=== PATIENT | male | born 1965 ===

== ENCOUNTER 2018-03-08 12:33 | Inpatient (IN) | payer MEDICAID ==
[2018-03-08 12:34] VITALS: BMI 21.5
--- NOTE | 2018-03-08 13:48 | C.PDOC ---
History Of Present Illness 52 y/o male with history of DM and Cellulitis in 2017 presents to ED for evaluation of worsening left facial infection and onset difficulty to left vision for 1 months. Patient reports paresthesia to periorbital area and has current facial defect due to consequences of celullitis. Patient states he is pending evaluation for reconstructive surgery at [facility] but states surgical clinic at hospital states he needed an evaluation by dermatology prior to having surgery. Patient reports appointment with dermatology but they keep canceling and giving him "the run around". Patient has history of MRSA secondary to leg cellulitis. Patient states [facility] sent him to ED for evaluation today and denies fever, difficulty breathing or any other physical complaints at this time. Time Seen by Provider: 03/08/18 12:38 Chief Complaint (Nursing): Abnormal Skin Integrity History Per: Workers' Compensation Claims Examiner, Other (Records of [place], [place]) History/Exam Limitations: language barrier Onset/Duration Of Symptoms: Days Current Symptoms Are (Timing): Still Present Past Medical History Reviewed: Historical Data, Nursing Documentation, Vital Signs Vital Signs: Last Vital Signs Temp 98.6 F 03/08/18 12:45 Pulse 86 03/08/18 16:07 Resp 18 03/08/18 16:07 BP 182/81 H 03/08/18 16:07 Pulse Ox 100 03/08/18 16:07 - Medical History PMH: Anemia, Depression, Diabetes, HTN Surgical History: No Surg Hx - [facility] Procedures DETACHMENT AT RIGHT KNEE REGION, OPEN APPROACH (07/27/15) DRAINAGE OF R FOOT SUBCU/FASCIA, OPEN APPROACH, DIAGN (07/27/15) EXCISION OF R LOW LEG SUBCU/FASCIA, OPEN APPROACH (06/12/15) EXCISION OF RIGHT TARSAL, OPEN APPROACH (07/27/15) GAIT TRAINING/FUNCTIONAL AMBULATION TREATMENT (07/16/15) INSERTION OF INFUSION DEV INTO SUP VENA CAVA, PERC APPROACH (06/12/15) INTRODUCTION OF SERUM/TOX/VACCINE INTO MUSCLE, PERC APPROACH (07/16/15) ROM & JT MOBILITY TREATMENT OF MUSCULOSK LOW BACK/LE (07/16/15) THERAPEUTIC EXERCISE TREATMENT OF MUSCULOSK LOW BACK/LE (08/27/15) TRANSFUSE NONAUT RED BLOOD CELLS IN PERIPH VEIN, PERC (07/27/15) Family History: States: No Known Family Hx - Social History Hx Alcohol Use: No Hx Substance Use: No - Immunization History Hx Tetanus Toxoid Vaccination: No Hx Influenza Vaccination: No Hx Pneumococcal Vaccination: No Review Of Systems Constitutional: Negative for: Fever, Chills Eyes: Positive for: Vision Change Respiratory: Negative for: Shortness of Breath Skin: Positive for: Other (crusting and erythema). Negative for: Rash Physical Exam - Physical Exam Appears: Non-toxic, No Acute Distress Skin: Warm, Dry, Other (generalized crusting and erythema to face extending to nose L>R, Findings consistent with Impetigos/Cellulitis extending to left perio- oral area) Head: Other (Chronic mid left facial deformity ) Eye(s): bilateral: PERRL, EOMI Nose: Deformity (missing left nose with visualizations of nasal turbinates) Oral Mucosa: Moist, No Drooling Lips: Other (lower lip missing) Neck: Normal ROM, Supple Cardiovascular: Rhythm Regular Respiratory: Normal Breath Sounds, No Rales, No Rhonchi, No Wheezing Extremity: Deformity (bilateral BKA) Neurological/Psych: Oriented x3, Normal Speech, Normal Cognition ED Course And Treatment - Laboratory Results Result Diagrams: 03/08/18 14:02 03/08/18 14:02 ECG: Interpreted By Me ECG Rhythm: Sinus Rhythm ECG Interpretation: Normal Rate From EC O2 Sat by Pulse Oximetry: 98 (RA) Pulse Ox Interpretation: Normal Disposition Counseled Patient/Family Regarding: Studies Performed, Diagnosis - Disposition Disposition: HOSPITALIZED Disposition Time: 16:22 Condition: STABLE Forms: [facility] (Bruneian) - POA Present On Arrival: Poor Glycemic Control - Clinical Impression Clinical Impression: Cellulitis - Scribe Statement The provider has reviewed the documentation as recorded by the Elizabeth Starr All medical record entries made by the Patrickibmihir were at my direction and personally dictated by me. I have reviewed the chart and agree that the record accurately reflects my personal performance of the history, physical exam, medical decision making, and the department course for this patient. I have also personally directed, reviewed, and agree with the discharge instructions and disposition. Decision To Admit - Pt Status Changed To: Hospital Disposition Of: Inpatient - Admit Certification Admit to Inpatient:: After my assessment, the patient will require hospitalization for at least two midnights. This is because of the severity of symptoms shown, intensity of services needed, and/or the medical risk in this patient being treated as an outpatient. - InPatient: Physician Admission Certification: I certify that this patient requires 2 or more midnights of care for the following reason:: SEE NOTE - . Bed Request Type: Regular Admitting Physician: Nato Escobedo Patient Diagnosis: Cellulitis, Diabetes mellitus, insulin dependent (IDDM), uncontrolled
[2018-03-08 14:08] LABS: BASO # 0.1 K/uL (0.0-0.2); BASO % 0.7 % (0.0-2.0); EOS # 0.3 K/uL (0.0-0.7); HEMOGLOBIN 11.3 g/dL (12.0-18.0); LYMPH # 1.9 K/uL (1.0-4.3); LYMPH % 18.9 % (20.0-40.0); MEAN CELL VOLUME 87.7 fL (80.0-94.0); MEAN CORPUSCULAR HEMOGLOBIN 29.9 pg (27.0-31.0); MEAN CORPUSCULAR HGB CONC 34.1 g/dL (33.0-37.0); MEAN PLATELET VOLUME 9.3 fL (7.2-11.7); MONO # 0.7 K/uL (0.0-0.8); MONO % 6.6 % (0.0-10.0); NEUT # 7.1 K/uL (1.8-7.0); NEUT % 70.8 % (50.0-75.0); RBC 3.77 Mil/uL (4.40-5.90); RED CELL DISTRIBUTION WIDTH 13.8 % (11.5-14.5)
[2018-03-08 14:08] LABS: VENOUS BLOOD GAS BASE EXCESS -6.2 mmol/L (0.0-2.0); VENOUS BLOOD GAS PCO2 60 mmHg (40-60); VENOUS BLOOD GAS PO2 63 mm/Hg (30-55); VENOUS BLOOD PH 7.19 (7.32-7.43)
[2018-03-08 14:22] LABS: BLOOD UREA NITROGEN 15 mg/dL (9-20); CALCIUM 9.2 mg/dl (8.6-10.4); GFR AFRICAN-AMERICAN > 60; GFR NON-AFRICAN AMERICAN > 60
[2018-03-08] MEDS ORDERED: Iodixanol 320 MG/ML 100 ML BOTTLE IV ONE (15:10)
--- NOTE | 2018-03-08 15:57 | CT ---
PROCEDURE: CT HEAD WITHOUT CONTRAST. HISTORY: L FACIAL ABN RO MASS COMPARISON: None available. TECHNIQUE: Axial computed tomography images were obtained through the head/brain without intravenous contrast. Radiation dose: Total exam DLP = 2350.79 mGy-cm. This CT exam was performed using one or more of the following dose reduction techniques: Automated exposure control, adjustment of the mA and/or kV according to patient size, and/or use of iterative reconstruction technique. FINDINGS: HEMORRHAGE: No intracranial hemorrhage. BRAIN: There are mild chronic microangiopathic changes. There is no mass, mass effect or abnormal extra-axial fluid collection. There is no territorial infarction. VENTRICLES: There is mild age-related global parenchymal volume loss and proportionate enlargement of the ventricles and cortical sulci. CALVARIUM: There is a focal defect in the right frontal bone without evidence for encephalocele. There is mild thickening of the overlying skin. PARANASAL SINUSES: Predominantly clear. MASTOID AIR CELLS: Predominantly clear. OTHER FINDINGS: None. IMPRESSION: No acute intracranial abnormality. Focal bony defect in the right frontal bone with associated thickening of the overlying skin without evidence for encephalocele. A dedicated MRI of the brain without and with intravenous contrast is recommended for further evaluation.
--- NOTE | 2018-03-08 16:06 | CT ---
PROCEDURE: CT ORBITS WITH CONTRAST. HISTORY: CELLULITIS, L FACIAL DEFECT RO ABSCESS COMPARISON: None available. TECHNIQUE: Following administration of intravenous iodinated contrast, axial CT images of the orbits were obtained. Coronal and sagittal reformats were generated. Intravenous contrast dose: 100 mL Visipaque Radiation dose: Total exam DLP = 821.77 mGy-cm. This CT exam was performed using one or more of the following dose reduction techniques: Automated exposure control, adjustment of the mA and/or kV according to patient size, and/or use of iterative reconstruction technique. FINDINGS: RIGHT ORBIT: RIGHT BONY ORBIT: Normal. RIGHT INTRAORBITAL STRUCTURES: Globe: Normal. Extraocular muscles: Normal. Post septal space: Normal. Optic Nerve: Normal. Lacrimal Apparatus: Normal. RIGHT PRESEPTAL SOFT TISSUES: Normal. LEFT ORBIT: LEFT BONY ORBIT: Normal. LEFT INTRAORBITAL STRUCTURES: Globe: Normal. Extraocular muscles: Normal. Post septal space: Normal. Optic Nerve: Normal. Lacrimal Apparatus: Normal. LEFT PRESEPTAL SOFT TISSUES: There is mild preseptal soft tissue thickening. OTHER: There is left lateral nasal soft tissue defect and right inferior nasal soft tissue defect with soft tissue thickening anterior to the superior maxilla without evidence for abscess or drainable fluid collection. There is left pre maxillary soft tissue thickening. There is also diffuse soft tissue thickening of the left face and subcutaneous soft tissue anterior to the left mandible. IMPRESSION: Normal contrast enhanced CT of the orbits. Bilateral nasal soft tissue defects, larger on the left and abnormal soft-tissue thickening anterior superior to the maxilla without evidence for abscess or drainable fluid collection. Diffuse left facial skin thickening with abnormal soft-tissue anterior to the mandible and maxilla predominantly to the left as well as left preseptal soft tissue thickening most compatible with cellulitis. No evidence for abscess or drainable fluid collection. No definite evidence for osteomyelitis.
[2018-03-08] MEDS ORDERED: Vancomycin 1 gm/NS 200 ml 1 GM/200 ML BAG IVPB STA (16:24)
--- NOTE | 2018-03-08 16:39 | RAD ---
PROCEDURE: CHEST RADIOGRAPH, 1 VIEW HISTORY: PREADMISSION COMPARISON: None available. FINDINGS: LUNGS: Clear. PLEURA: No pneumothorax or pleural fluid seen. CARDIOVASCULAR: Normal. OSSEOUS STRUCTURES: No significant abnormalities. VISUALIZED UPPER ABDOMEN: Normal. OTHER FINDINGS: None. IMPRESSION: No active disease.
--- NOTE | 2018-03-08 17:39 | CP.PCM.HP ---
History of Present Illness - History of Present Illness History of Present Illness: Patient is a 52M with a PMH of DM, HTN and L. face cellulitis s/p debridment who comes to the ED with a CC of worsening Past Patient History - Past Medical History & Family History Past Medical History?: Yes - Past Social History Smoking Status: Former Smoker - CARDIAC Hx Hypertension: Yes - PULMONARY Hx Respiratory Disorders: No - NEUROLOGICAL Hx Neurological Disorder: No - HEENT Hx HEENT Problems: No - RENAL Hx Chronic Kidney Disease: No - ENDOCRINE/METABOLIC Hx Endocrine Disorders: Yes Hx Diabetes Mellitus Type 1: Yes Hx Diabetes Mellitus Type 2: Yes - HEMATOLOGICAL/ONCOLOGICAL Hx Anemia: Yes - INTEGUMENTARY Hx Dermatological Problems: Yes Hx Cellulitis: Yes Other/Comment: Ulcer right foot - MUSCULOSKELETAL/RHEUMATOLOGICAL Hx Musculoskeletal Disorders: Yes (SEE COMMENT) Hx Falls: No Hx Osteomyelitis: Yes Other/Comment: BILATERAL BK-AMPUTATIONS - GASTROINTESTINAL Hx Gastrointestinal Disorders: No - GENITOURINARY/GYNECOLOGICAL Hx Genitourinary Disorders: No - PSYCHIATRIC Hx Depression: Yes Hx Substance Use: No - SURGICAL HISTORY Hx Surgeries: Yes Hx Amputation: Yes (Bilateral BKA) - ANESTHESIA Hx Anesthesia: Yes Hx Anesthesia Reactions: No Hx Malignant Hyperthermia: No Meds Allergies/Adverse Reactions: Allergies Allergy/AdvReac Type Severity Reaction Status Date / Time No Known Allergies Allergy Verified 03/08/18 12:42 Results - Vital Signs Recent Vital Signs: Last Vital Signs Temp 98.6 F 03/08/18 12:45 Pulse 89 03/08/18 17:05 Resp 18 03/08/18 17:05 BP 150/71 03/08/18 17:05 Pulse Ox 100 03/08/18 17:05 - Labs Result Diagrams: 03/08/18 14:02 03/08/18 14:02 Labs: Laboratory Results - last 24 hr 03/08/18 03/08/18 03/08/18 14:02 14:02 14:03 WBC 10.0 RBC 3.77 L Hgb 11.3 L Hct 33.1 L MCV 87.7 MCH 29.9 MCHC 34.1 RDW 13.8 Plt Count 288 MPV 9.3 Neut % (Auto) 70.8 Lymph % (Auto) 18.9 L [place] % (Auto) 6.6 Eos % (Auto) 3.0 Baso % (Auto) 0.7 Neut # (Auto) 7.1 H Lymph # (Auto) 1.9 [place] # (Auto) 0.7 Eos # (Auto) 0.3 Baso # (Auto) 0.1 pO2 63 H VBG pH 7.19 L* VBG pCO2 60 VBG HCO3 19.8 VBG Total CO2 24.7 VBG O2 Sat (Calc) 90.2 H VBG Base Excess -6.2 L VBG Potassium > 20.0 H* Glucose 191 H Lactate 1.6 Crit Value Called To Dr joyce Crit Value Called By Karyn martinez javascript engineer Crit Value Read Back Y Blood Gas Notified Time 1410 Sodium 142 129.0 L Potassium 4.2 Chloride 106 105.0 Carbon Dioxide 25 Anion Gap 15 BUN 15 Creatinine 0.7 L Est GFR ( Amer) > 60 Est GFR (Non-Af Amer) > 60 Random Glucose 191 H Calcium 9.2 Venous Blood Potassium > 20.0 H*
[2018-03-08 18:22] VITALS: RESP 20
--- NOTE | 2018-03-08 20:49 | CP.PCM.HP ---
<LailaLennyVazquez - Last Filed: 03/08/18 22:27> History of Present Illness - History of Present Illness History of Present Illness: PGY1 Medicine H+P for Dr. Henderson Nursing staff used for translation Patient is a 52 year old male with a past medical history of hypertension, diabetes (b/l BKA 2/2 uncontrolled diabetes) and hx cellulitis with erosion into the nasal cartilage of the face. Patient is coming to the hospital for a worsening infection of the face and blurry vision for one month. Patient has noticed that the erythema on his face has started to move upwards towards his eye over the past month. He is now experiencing paresthesia to the entire left side of his face. He was originally evaluated for his infection at [facility] for the infection over one year ago. He was follow up with plastic reconstructive surgery at [facility] but they told him he needs to see dermatology before they can do the procedure. He has made multiple appointment with dermatology but they have cancelled on him many times and he is getting frustrated. He has never seen wound care for the infection that has applying dry gauze pads to the wound that has been seeping "water" for a couple of months. Everytime that he peels the gauze off, his skin begins to bleed a little bit. He has not taken his temperature at home but complains of a burning feeling throughout his body and feeling feverish. He has no other complaints at this time. He states he is compliant with his medications. Denies nausea, vomiting, diarrhea, constipation, chest pain, shortness of breath, abdominal pain or recent illness. PMH: hypertension, diabetes and hx cellulitis with erosion into the nasal cartilage of the face (for 1 year) PSH: b/l BKA 2/2 uncontrolled diabetes Social: Denies tobacco, alcohol or illicit drug use. Allergies: NKDA Meds: * Metformin 1,000mg PO BID * Aspirin 81mg PO daily * Enalapril Maleate 20mg PO BID * Lexapro 10mg PO daily * Metoprolol Succ. XL 50mg PO daily Present on Admission - Present on Admission Any Indicators Present on Admission: Yes History of Uncontrolled Diabetes: Yes Review of Systems - Review of Systems All systems: reviewed and no additional remarkable complaints except (as per HPI ) - Constitutional Constitutional: As Per HPI - EENT Eyes: As Per HPI Ears: As Per HPI Nose/Mouth/Throat: As Per HPI - Cardiovascular Cardiovascular: As Per HPI - Respiratory Respiratory: As Per HPI - Gastrointestinal Gastrointestinal: As Per HPI - Musculoskeletal Musculoskeletal: As Per HPI - Integumentary Integumentary: As Per HPI - Neurological Neurological: As Per HPI - Psychiatric Psychiatric: As Per HPI - Endocrine Endocrine: As Per HPI - Hematologic/Lymphatic Hematologic: As Per HPI Past Patient History - Past Medical History & Family History Past Medical History?: Yes - Past Social History Smoking Status: Former Smoker - CARDIAC Hx Hypertension: Yes - PULMONARY Hx Respiratory Disorders: No - NEUROLOGICAL Hx Neurological Disorder: No - HEENT Hx HEENT Problems: No - RENAL Hx Chronic Kidney Disease: No - ENDOCRINE/METABOLIC Hx Endocrine Disorders: Yes Hx Diabetes Mellitus Type 1: Yes Hx Diabetes Mellitus Type 2: Yes - HEMATOLOGICAL/ONCOLOGICAL Hx Anemia: Yes - INTEGUMENTARY Hx Dermatological Problems: Yes Hx Cellulitis: Yes Other/Comment: Ulcer right foot - MUSCULOSKELETAL/RHEUMATOLOGICAL Hx Musculoskeletal Disorders: Yes (SEE COMMENT) Hx Falls: No Hx Osteomyelitis: Yes Other/Comment: BILATERAL BK-AMPUTATIONS - GASTROINTESTINAL Hx Gastrointestinal Disorders: No - GENITOURINARY/GYNECOLOGICAL Hx Genitourinary Disorders: No - PSYCHIATRIC Hx Depression: Yes Hx Substance Use: No - SURGICAL HISTORY Hx Surgeries: Yes Hx Amputation: Yes (Bilateral BKA) - ANESTHESIA Hx Anesthesia: Yes Hx Anesthesia Reactions: No Hx Malignant Hyperthermia: No Meds Allergies/Adverse Reactions: Allergies Allergy/AdvReac Type Severity Reaction Status Date / Time No Known Allergies Allergy Verified 03/08/18 12:42 Physical Exam - Constitutional Appears: Non-toxic, Chronically Ill - Head Exam Additional comments: Erythema and erosion of nasal cartilage on left side of head - Eye Exam Eye Exam: EOMI, Periorbital swelling (below left eye), Periorbital tenderness ( below left eye) Pupil Exam: Unequal (left eye pupil smaller compared to right) - ENT Exam Additional comments: Erythema and erosion of nasal cartilage, missing left side of nose and part of left lip. healing eschar on left side of face and lip. - Neck Exam Neck exam: Negative for: Lymphadenopathy - Respiratory Exam Respiratory Exam: Clear to Auscultation Bilateral, NORMAL BREATHING PATTERN. absent: Accessory Muscle Use, Rales, Rhonchi, Wheezes, Respiratory Distress - Cardiovascular Exam Cardiovascular Exam: REGULAR RHYTHM, +S1, +S2 - GI/Abdominal Exam GI & Abdominal Exam: Normal Bowel Sounds, Soft. absent: Distended, Firm, Guarding, Rigid, Tenderness - Extremities Exam Additional comments: b/l bka - Neurological Exam Neurological exam: Alert, CN II-XII Intact, Oriented x3 - Psychiatric Exam Psychiatric exam: Normal Affect, Normal Mood - Skin Skin Exam: Dry, Warm Results - Vital Signs Recent Vital Signs: Last Vital Signs Temp 98.4 F 03/08/18 20:20 Pulse 89 03/08/18 20:20 Resp 20 03/08/18 20:20 BP 164/78 H 03/08/18 20:20 Pulse Ox 98 03/08/18 20:20 - Labs Result Diagrams: 03/08/18 14:02 03/08/18 14:02 Labs: Laboratory Results - last 24 hr 03/08/18 03/08/18 03/08/18 14:02 14:02 14:03 WBC 10.0 RBC 3.77 L Hgb 11.3 L Hct 33.1 L MCV 87.7 MCH 29.9 MCHC 34.1 RDW 13.8 Plt Count 288 MPV 9.3 Neut % (Auto) 70.8 Lymph % (Auto) 18.9 L [place] % (Auto) 6.6 Eos % (Auto) 3.0 Baso % (Auto) 0.7 Neut # (Auto) 7.1 H Lymph # (Auto) 1.9 [place] # (Auto) 0.7 Eos # (Auto) 0.3 Baso # (Auto) 0.1 pO2 63 H VBG pH 7.19 L* VBG pCO2 60 VBG HCO3 19.8 VBG Total CO2 24.7 VBG O2 Sat (Calc) 90.2 H VBG Base Excess -6.2 L VBG Potassium > 20.0 H* Glucose 191 H Lactate 1.6 Crit Value Called To Dr joyce Crit Value Called By Karyn martinez electric welder helper Crit Value Read Back Y Blood Gas Notified Time 1410 Sodium 142 129.0 L Potassium 4.2 Chloride 106 105.0 Carbon Dioxide 25 Anion Gap 15 BUN 15 Creatinine 0.7 L Est GFR ( Amer) > 60 Est GFR (Non-Af Amer) > 60 Random Glucose 191 H Calcium 9.2 Venous Blood Potassium > 20.0 H* Assessment & Plan (1) Facial cellulitis Assessment and Plan: 51 year old male with worsening of cellulitis of face with erosion of areas of nose/face. Head CT 03/08: No acute intracranial abnormality. Focal bony defect in the right frontal bone with associated thickening of the overlying skin without evidence for encephalocele. A dedicated MRI of the brain without and with intravenous contrast is recommended for further evaluation. Orbit CT 03/08: Normal contrast enhanced CT of the orbits. Bilateral nasal soft tissue defects, larger on the left and abnormal soft-tissue thickening anterior superior to the maxilla without evidence for abscess or drainable fluid collection. Diffuse left facial skin thickening with abnormal soft-tissue anterior to the mandible and maxilla predominantly to the left as well as left preseptal soft tissue thickening most compatible with cellulitis. No evidence for abscess or drainable fluid collection. No definite evidence for osteomyelitis. * Addendum: Since the prior examination, there has been no significant interval change in diffuse facial skin thickening and abnormal pre maxillary and pre mandibular soft tissue thickening without evidence for drainable fluid collection. There is also submental and submandibular lymphadenopathy, likely reactive. Findings may represent acute and/or chronic cellulitis, clinical correlation and follow-up is warranted. wound care consulted afebrile - reports subjective fevers erythema outlined on face - continue to monitor Vancomycin 1gm IVPB q12h (started on 03/08) * check vanco trough before 4th dose on 03/10 @930am - order is in Rocephin 1gm IVPB q12h (started on 03/08) Patient has been following with [facility] for reconstructive surgery for erosion of nasal cartilage. Patient was informed that we do not have those services here and that he needs to follow up with his doctors. We discussed that our goal is to treat any acute infection process that is currently occurring and to have wound care evaluate him to place proper dressings on his wound to optimize healing. Patient states that he understands. Status: Acute Priority: High (2) Hypertension, uncontrolled Assessment and Plan: uncontrolled - BP 212/90 upon admission patient reports medication compliance Restarted on home medications * Aspirin 81mg PO daily * Enalapril Maleate 20mg PO BID * Metoprolol Succ. 50mg PO daily continue to monitor, will adjust as needed Status: Acute (3) DM2 (diabetes mellitus, type 2) Assessment and Plan: Last Hgb A1c 10.1 on 04/07/17 * f/u new Hgb A1c accuchecks ISS SC ACHS Hold home metformin 1,000mg PO BID Status: Chronic (4) Prophylactic measure Assessment and Plan: Lovenox 40mg SC daily No GI ppx indicated at this time Continue home Lexapro 10mg PO daily Status: Acute - Assessment and Plan (Free Text) Assessment: Case discussed with Dr. Beatriz Ulloa PGY1 <Guanakito Henderson P - Last Filed: 03/09/18 06:56> Results - Vital Signs Recent Vital Signs: Last Vital Signs Temp 98.2 F 03/08/18 23:35 Pulse 79 03/08/18 23:35 Resp 20 03/08/18 23:35 BP 150/85 03/08/18 23:35 Pulse Ox 98 03/08/18 23:35 - Labs Result Diagrams: 03/08/18 14:02 03/08/18 14:02 Labs: Laboratory Results - last 24 hr 03/08/18 03/08/18 03/08/18 14:02 14:02 14:03 WBC 10.0 RBC 3.77 L Hgb 11.3 L Hct 33.1 L MCV 87.7 MCH 29.9 MCHC 34.1 RDW 13.8 Plt Count 288 MPV 9.3 Neut % (Auto) 70.8 Lymph % (Auto) 18.9 L [place] % (Auto) 6.6 Eos % (Auto) 3.0 Baso % (Auto) 0.7 Neut # (Auto) 7.1 H Lymph # (Auto) 1.9 [place] # (Auto) 0.7 Eos # (Auto) 0.3 Baso # (Auto) 0.1 pO2 63 H VBG pH 7.19 L* VBG pCO2 60 VBG HCO3 19.8 VBG Total CO2 24.7 VBG O2 Sat (Calc) 90.2 H VBG Base Excess -6.2 L VBG Potassium > 20.0 H* Glucose 191 H Lactate 1.6 Crit Value Called To Dr joyce Crit Value Called By Karyn martinez electric welder helper Crit Value Read Back Y Blood Gas Notified Time 1410 Sodium 142 129.0 L Potassium 4.2 Chloride 106 105.0 Carbon Dioxide 25 Anion Gap 15 BUN 15 Creatinine 0.7 L Est GFR ( Amer) > 60 Est GFR (Non-Af Amer) > 60 POC Glucose (mg/dL) Random Glucose 191 H Calcium 9.2 Venous Blood Potassium > 20.0 H* 03/08/18 21:19 WBC RBC Hgb Hct MCV MCH MCHC RDW Plt Count MPV Neut % (Auto) Lymph % (Auto) [place] % (Auto) Eos % (Auto) Baso % (Auto) Neut # (Auto) Lymph # (Auto) [place] # (Auto) Eos # (Auto) Baso # (Auto) pO2 VBG pH VBG pCO2 VBG HCO3 VBG Total CO2 VBG O2 Sat (Calc) VBG Base Excess VBG Potassium Glucose Lactate Crit Value Called To Crit Value Called By Crit Value Read Back Blood Gas Notified Time Sodium Potassium Chloride Carbon Dioxide Anion Gap BUN Creatinine Est GFR ( Amer) Est GFR (Non-Af Amer) POC Glucose (mg/dL) 274 H Random Glucose Calcium Venous Blood Potassium Attending/Attestation - Attestation I have personally seen and examined this patient.: Yes I have fully participated in the care of the patient.: Yes I have reviewed all pertinent clinical information: Yes Notes (Text): 03/09/18 06:52 Facial Cellulitis adjacent to prior area of skin damage and loss on the left side, likely due to open wound. DM not well controlled ? form infection, metformin will be held 2 days as pt received iv contrast for CT, glipizide ordered meanwhile. h/o BKA b/l wheel chair bound h/o htn. Plan Vanco and rocephin to control cellulitis, Next step aggressive attempt for would healing, possibly need skin grafting, then nasal reconstruction surgery Control DM See orders for detail.
[2018-03-08] MEDS: (Novolin R) Insulin Human Regular 100 units/ml vial SC SCH (21:35)
[2018-03-09] MEDS: (Novolin R) Insulin Human Regular 100 units/ml vial SC SCH ×4 (07:59→21:36)
[2018-03-09] MEDS: Vancomycin 1 GM in Sodium Chloride 0.9% 200 ML IVPB SCH ×2 (08:00→18:35)
--- NOTE | 2018-03-09 08:59 | CP.PCM.PN ---
<Ming Mead - Last Filed: 03/09/18 08:55> Subjective - Date & Time of Evaluation Date of Evaluation: 03/09/18 Time of Evaluation: 08:55 - Subjective Subjective: PGY2 note for Dr. Alston's ervice: Pt seen and examined at bedside. Nursing reports no acute events overnight. Objective - Vital Signs/Intake and Output Vital Signs (last 24 hours): Temp Pulse Resp BP Pulse Ox 98.2 F 79 20 150/85 98 03/08/18 23:35 03/08/18 23:35 03/08/18 23:35 03/08/18 23:35 03/08/18 23:35 - Medications Medications: Current Medications Acetaminophen (Tylenol 325mg Tab) 650 mg PO Q6 PRN PRN Reason: Fever >100.4 F Aspirin (Ecotrin) 81 mg PO DAILY [facility] Enalapril Maleate (Vasotec) 20 mg PO BID [facility] Last Admin: 03/08/18 21:34 Dose: 20 mg Enoxaparin Sodium (Lovenox) 40 mg SC DAILY [facility] Escitalopram Oxalate (Lexapro) 10 mg PO DAILY [facility] Glipizide (Glucotrol) 5 mg PO ACB [facility] Stop: 03/11/18 07:31 Last Admin: 03/09/18 08:00 Dose: 5 mg Ceftriaxone Sodium 1 gm/ (Sodium Chloride) 100 mls @ 100 mls/hr IVPB Q24H [facility] PRN Reason: Protocol Vancomycin HCl 1 gm/ Sodium (Chloride) 200 mls @ 133.333 mls/hr IVPB Q12H [facility] PRN Reason: Protocol Last Admin: 03/09/18 08:00 Dose: 133.333 mls/hr Insulin Human Regular (Novolin R) 0 unit SC ACHS [facility] PRN Reason: Protocol Last Admin: 03/09/18 07:59 Dose: 2 unit Metoprolol Succinate (Toprol Xl) 50 mg PO DAILY [facility] - Labs Labs: 03/08/18 14:02 03/08/18 14:02 - Additional Findings Additional findings: - Constitutional Appears: Non-toxic, Chronically Ill - Head Exam Additional comments: Erythema and erosion of nasal cartilage on left side of head - Eye Exam Eye Exam: EOMI, Periorbital swelling (below left eye), Periorbital tenderness ( below left eye) Pupil Exam: Unequal (left eye pupil smaller compared to right) - ENT Exam Additional comments: Erythema and erosion of nasal cartilage, missing left side of nose and part of left lip. healing eschar on left side of face and lip. - Neck Exam Neck exam: Negative for: Lymphadenopathy - Respiratory Exam Respiratory Exam: Clear to Auscultation Bilateral, NORMAL BREATHING PATTERN. absent: Accessory Muscle Use, Rales, Rhonchi, Wheezes, Respiratory Distress - Cardiovascular Exam Cardiovascular Exam: REGULAR RHYTHM, +S1, +S2 - GI/Abdominal Exam GI & Abdominal Exam: Normal Bowel Sounds, Soft. absent: Distended, Firm, Guarding, Rigid, Tenderness - Extremities Exam Additional comments: b/l bka - Neurological Exam Neurological exam: Alert, CN II-XII Intact, Oriented x3 - Psychiatric Exam Psychiatric exam: Normal Affect, Normal Mood - Skin Skin Exam: Dry, Warm Assessment and Plan - Assessment and Plan (Free Text) Plan: Facial cellulitis Observe on med/surg afebrile - reports subjective fevers Worsening cellulitis of face with erosion of areas of nose/face. Head CT 03/08: No acute intracranial abnormality. Focal bony defect in the right frontal bone with associated thickening of the overlying skin without evidence for encephalocele. A dedicated MRI of the brain without and with intravenous contrast is recommended for further evaluation. Orbit CT 03/08: Normal contrast enhanced CT of the orbits. Bilateral nasal soft tissue defects, larger on the left and abnormal soft-tissue thickening anterior superior to the maxilla without evidence for abscess or drainable fluid collection. Diffuse left facial skin thickening with abnormal soft-tissue anterior to the mandible and maxilla predominantly to the left as well as left preseptal soft tissue thickening most compatible with cellulitis. No evidence for abscess or drainable fluid collection. No definite evidence for osteomyelitis. * Addendum: Since the prior examination, there has been no significant interval change in diffuse facial skin thickening and abnormal pre maxillary and pre mandibular soft tissue thickening without evidence for drainable fluid collection. There is also submental and submandibular lymphadenopathy, likely reactive. Findings may represent acute and/or chronic cellulitis, clinical correlation and follow-up is warranted. wound care consulted erythema outlined on face - continue to monitor Vancomycin 1gm IVPB q12h (started on 03/08) * check vanco trough before 4th dose on 03/10 @930am - order is in Rocephin 1gm IVPB q12h (started on 03/08) Hypertension, uncontrolled uncontrolled - BP 212/90 upon admission patient reports medication compliance Restarted on home medications * Aspirin 81mg PO daily * Enalapril Maleate 20mg PO BID * Metoprolol Succ. 50mg PO daily continue to monitor, will adjust as needed DM2 (diabetes mellitus, type 2) Last Hgb A1c 10.1 on 04/07/17 * f/u new Hgb A1c accuchecks ISS SC ACHS Hold home metformin 1,000mg PO BID Prophylactic measure Lovenox 40mg SC daily No GI ppx indicated at this time Continue home Lexapro 10mg PO daily Disposition: Patient has been following with [facility] for reconstructive surgery for erosion of nasal cartilage. Patient was informed that we do not have those services here and that he needs to follow up with his doctors. We discussed that our goal is to treat any acute infection process that is currently occurring and to have wound care evaluate him to place proper dressings on his wound to optimize healing. Patient states that he understands. Mnig Mead PGY2 <Galen Alston H - Last Filed: 03/09/18 11:02> Objective - Vital Signs/Intake and Output Vital Signs (last 24 hours): Temp Pulse Resp BP Pulse Ox 97.4 F L 86 20 148/80 99 03/09/18 08:58 03/09/18 08:58 03/09/18 08:58 03/09/18 09:42 03/09/18 08:58 - Medications Medications: Current Medications Acetaminophen (Tylenol 325mg Tab) 650 mg PO Q6 PRN PRN Reason: Fever >100.4 F Aspirin (Ecotrin) 81 mg PO DAILY [facility] Last Admin: 03/09/18 09:41 Dose: 81 mg Enalapril Maleate (Vasotec) 20 mg PO BID [facility] Last Admin: 03/09/18 09:42 Dose: 20 mg Enoxaparin Sodium (Lovenox) 40 mg SC DAILY [facility] Last Admin: 03/09/18 09:41 Dose: 40 mg Escitalopram Oxalate (Lexapro) 10 mg PO DAILY [facility] Last Admin: 03/09/18 09:42 Dose: 10 mg Glipizide (Glucotrol) 5 mg PO ACB [facility] Stop: 03/11/18 07:31 Last Admin: 06/16/18 08:00 Dose: 5 mg Ceftriaxone Sodium 1 gm/ (Sodium Chloride) 100 mls @ 100 mls/hr IVPB Q24H [facility] PRN Reason: Protocol Vancomycin HCl 1 gm/ Sodium (Chloride) 200 mls @ 133.333 mls/hr IVPB Q12H [facility] PRN Reason: Protocol Last Admin: 03/09/18 08:00 Dose: 133.333 mls/hr Insulin Human Regular (Novolin R) 0 unit SC ACHS [facility] PRN Reason: Protocol Last Admin: 03/09/18 07:59 Dose: 2 unit Metoprolol Succinate (Toprol Xl) 50 mg PO DAILY [facility] Last Admin: 03/09/18 09:42 Dose: 50 mg - Labs Labs: 03/09/18 08:58 03/09/18 08:58 Attending/Attestation - Attestation I have personally seen and examined this patient.: Yes I have fully participated in the care of the patient.: Yes I have reviewed all pertinent clinical information, including history, physical exam and plan: Yes Notes (Text): 03/09/18 10:52 Medical attending: Patient was seen and examined by me. Agree with the above note by the resident He did not report any acute events overnight. Will change the IV Rocephin over to IV Zosyn. Continue with the IV Vancomycin. He reported less tenderness over the left facial area today. There is still some minimal drainage - less than compared to yesterday. The patient denied having fevers or chills overnight. Denied chest pain, denied headache, denied shortness of breath. At this moment the cultures are negative As mentioned previously this is a 52 year old male with a history of uncontrolled DM who has had bilateral BKAs and these past year complications with left facial cellulitis which resulted in the left nose cartilage become necrotic and it requiring removal. He has had several skin infections since the resulting cavity has not completely healed correctly and then is susceptible to cellulitis. The patient ultimately could benefit from facial surgery - which we do not have at [facility]. I emphaiszed this to the ER however they were not able to transfer patient to another facility. Supposedly he has been following up at [facility] for potential surgery in the future however he supposedly is also having trouble seeing dermatology. His situation is made more complicated as he is bilateral BKA and also he speaks only [place]. So at this time the most we can do for him here is to control the cellulitis. And then once he is discharged in the future he has to try to get himself to a larger hospital with the services he needs to see. Right now his BP, HR, temperature and lab work are all stable. Galen Alston
[2018-03-09 09:13] LABS: BASO # 0.1 K/uL (0.0-0.2); BASO % 0.8 % (0.0-2.0); EOS # 0.4 K/uL (0.0-0.7); EOS % 4.7 % (0.0-4.0); HEMOGLOBIN 11.5 g/dL (12.0-18.0); LYMPH % 26.3 % (20.0-40.0); MEAN CELL VOLUME 87.8 fL (80.0-94.0); MEAN CORPUSCULAR HGB CONC 34.2 g/dL (33.0-37.0); MEAN PLATELET VOLUME 9.5 fL (7.2-11.7); MONO # 0.6 K/uL (0.0-0.8); MONO % 7.4 % (0.0-10.0); NEUT # 4.7 K/uL (1.8-7.0); NEUT % 60.8 % (50.0-75.0); NRBC % 0.1 % (0.0-2.0); RBC 3.82 Mil/uL (4.40-5.90); RED CELL DISTRIBUTION WIDTH 13.9 % (11.5-14.5); WHITE BLOOD COUNT 7.7 K/uL (4.8-10.8)
[2018-03-09 09:20] LABS: ALBUMIN 3.8 g/dL (3.5-5.0); ALT/SGPT 16 U/L (21-72); AST/SGOT 18 U/L (17-59); BLOOD UREA NITROGEN 14 mg/dL (9-20); CALCIUM 9.3 mg/dl (8.6-10.4); GFR AFRICAN-AMERICAN > 60; GFR NON-AFRICAN AMERICAN > 60
[2018-03-09] MEDS: Enoxaparin 40 mg Syringe SC SCH (09:41)
[2018-03-09] MEDS: Metoprolol Succinate 50 mg XL Tab PO SCH (09:42)
[2018-03-09] MEDS ORDERED: Vancomycin 1 GM in Sodium Chloride 0.9% 200 ML IVPB SCH (10:00)
[2018-03-10 07:15] LABS: BASO # 0.1 K/uL (0.0-0.2); BASO % 0.8 % (0.0-2.0); EOS # 0.4 K/uL (0.0-0.7); EOS % 4.9 % (0.0-4.0); HEMOGLOBIN 11.7 g/dL (12.0-18.0); LYMPH # 1.7 K/uL (1.0-4.3); LYMPH % 21.4 % (20.0-40.0); MEAN CELL VOLUME 87.3 fL (80.0-94.0); MEAN CORPUSCULAR HEMOGLOBIN 30.3 pg (27.0-31.0); MEAN CORPUSCULAR HGB CONC 34.7 g/dL (33.0-37.0); MEAN PLATELET VOLUME 9.4 fL (7.2-11.7); MONO # 0.6 K/uL (0.0-0.8); MONO % 7.5 % (0.0-10.0); NEUT % 65.4 % (50.0-75.0); RBC 3.88 Mil/uL (4.40-5.90); RED CELL DISTRIBUTION WIDTH 13.6 % (11.5-14.5); WHITE BLOOD COUNT 7.7 K/uL (4.8-10.8)
[2018-03-10 07:37] LABS: ALBUMIN 3.8 g/dL (3.5-5.0); ALT/SGPT 17 U/L (21-72); AST/SGOT 21 U/L (17-59); BLOOD UREA NITROGEN 18 mg/dL (9-20); CALCIUM 9.1 mg/dl (8.6-10.4); GFR AFRICAN-AMERICAN > 60; GFR NON-AFRICAN AMERICAN > 60
[2018-03-10] MEDS: Vancomycin 1 GM in Sodium Chloride 0.9% 200 ML IVPB SCH ×2 (08:17→19:00)
[2018-03-10] MEDS: (Novolin R) Insulin Human Regular 100 units/ml vial SC SCH ×4 (08:18→21:41)
--- NOTE | 2018-03-10 08:40 | CP.PCM.PN ---
<Ming Mead - Last Filed: 03/10/18 10:19> Subjective - Date & Time of Evaluation Date of Evaluation: 03/10/18 Time of Evaluation: 08:39 - Subjective Subjective: PGY2 note for Dr. Alston's ervice: Pt seen and examined at bedside. Nursing reports no acute events overnight. Patient reports the erythema in his face has improved since admission. Admits constipation for the last three days. He denies fever, chills, chest pain, abd pain, N/V. Objective - Vital Signs/Intake and Output Vital Signs (last 24 hours): Temp Pulse Resp BP Pulse Ox 98.7 F 84 20 171/78 H 96 03/10/18 08:28 03/10/18 08:28 03/10/18 08:28 03/10/18 08:28 03/10/18 08:28 Intake and Output: 03/10/18 03/10/18 06:59 18:59 Intake Total 540 Output Total 1600 Balance -1060 - Medications Medications: Current Medications Acetaminophen (Tylenol 325mg Tab) 650 mg PO Q6 PRN PRN Reason: Fever >100.4 F Aspirin (Ecotrin) 81 mg PO DAILY [facility] Last Admin: 03/09/18 09:41 Dose: 81 mg Enalapril Maleate (Vasotec) 20 mg PO BID [facility] Last Admin: 03/09/18 18:03 Dose: 20 mg Enoxaparin Sodium (Lovenox) 40 mg SC DAILY [facility] Last Admin: 03/09/18 09:41 Dose: 40 mg Escitalopram Oxalate (Lexapro) 10 mg PO DAILY [facility] Last Admin: 03/09/18 09:42 Dose: 10 mg Glipizide (Glucotrol) 5 mg PO ACB [facility] Stop: 03/11/18 07:31 Last Admin: 03/10/18 08:17 Dose: 5 mg Ceftriaxone Sodium 1 gm/ (Sodium Chloride) 100 mls @ 100 mls/hr IVPB Q24H [facility] PRN Reason: Protocol Last Admin: 03/09/18 21:37 Dose: 100 mls/hr Vancomycin HCl 1 gm/ Sodium (Chloride) 200 mls @ 133.333 mls/hr IVPB Q12H [facility] PRN Reason: Protocol Last Admin: 03/10/18 08:17 Dose: 133.333 mls/hr Insulin Human Regular (Novolin R) 0 unit SC ACHS [facility] PRN Reason: Protocol Last Admin: 03/10/18 08:18 Dose: 2 unit Metoprolol Succinate (Toprol Xl) 50 mg PO DAILY [facility] Last Admin: 03/09/18 09:42 Dose: 50 mg - Labs Labs: 03/10/18 07:08 03/10/18 07:08 - Additional Findings Additional findings: - Constitutional Appears: Non-toxic, Chronically Ill - Head Exam Additional comments: Erythema and erosion of nasal cartilage on left side of head - cellulitis improving - Eye Exam Eye Exam: EOMI, Periorbital swelling (below left eye), Periorbital tenderness ( below left eye) Pupil Exam: Unequal (left eye pupil smaller compared to right) - ENT Exam Additional comments: Erythema and erosion of nasal cartilage, missing left side of nose and part of left lip. healing eschar on left side of face and lip. - Neck Exam Neck exam: Negative for: Lymphadenopathy - Respiratory Exam Respiratory Exam: Clear to Auscultation Bilateral, NORMAL BREATHING PATTERN. absent: Accessory Muscle Use, Rales, Rhonchi, Wheezes, Respiratory Distress - Cardiovascular Exam Cardiovascular Exam: REGULAR RHYTHM, +S1, +S2 - GI/Abdominal Exam GI & Abdominal Exam: Normal Bowel Sounds, Soft. absent: Distended, Firm, Guarding, Rigid, Tenderness - Extremities Exam Additional comments: b/l bka - Neurological Exam Neurological exam: Alert, CN II-XII Intact, Oriented x3 - Psychiatric Exam Psychiatric exam: Normal Affect, Normal Mood - Skin Skin Exam: Dry, Warm Assessment and Plan - Assessment and Plan (Free Text) Plan: Facial cellulitis Observe on med/surg afebrile - reports subjective fevers Worsening cellulitis of face with erosion of areas of nose/face. Head CT 03/08: No acute intracranial abnormality. Focal bony defect in the right frontal bone with associated thickening of the overlying skin without evidence for encephalocele. A dedicated MRI of the brain without and with intravenous contrast is recommended for further evaluation. Orbit CT 03/08: Normal contrast enhanced CT of the orbits. Bilateral nasal soft tissue defects, larger on the left and abnormal soft-tissue thickening anterior superior to the maxilla without evidence for abscess or drainable fluid collection. Diffuse left facial skin thickening with abnormal soft-tissue anterior to the mandible and maxilla predominantly to the left as well as left preseptal soft tissue thickening most compatible with cellulitis. No evidence for abscess or drainable fluid collection. No definite evidence for osteomyelitis. * Addendum: Since the prior examination, there has been no significant interval change in diffuse facial skin thickening and abnormal pre maxillary and pre mandibular soft tissue thickening without evidence for drainable fluid collection. There is also submental and submandibular lymphadenopathy, likely reactive. Findings may represent acute and/or chronic cellulitis, clinical correlation and follow-up is warranted. wound care consulted erythema outlined on face - improving from admission Vancomycin 1gm IVPB q12h (started on 03/08) * check vanco trough before 4th dose on 03/10 @ 7pm - order is in Rocephin 1gm IVPB q12h (started on 03/08) Hypertension, uncontrolled uncontrolled - BP 212/90 upon admission Poor control over course Enalapril Maleate 20mg PO BID Metoprolol Succ. 50mg PO daily Start Norvasc 5mg PO Q24H continue to monitor, will adjust as needed CAD ASA 81 mg PO Daily DM2 (diabetes mellitus, type 2) Last Hgb A1c 10.1 on 04/07/17 * f/u new Hgb A1c accuchecks ISS SC ACHS Restart home metformin 1,000mg PO BID Glipizide 5mg PO ACB Anxiety/Depression Lexapro 10mg PO Daily Constipation Colace 100mg PO BID Miralax once Prophylactic measure Lovenox 40mg SC daily No GI ppx indicated at this time SCDs not required due to BKA Disposition: Patient has been following with [facility] for reconstructive surgery for erosion of nasal cartilage. Patient was informed that we do not have those services here and that he needs to follow up with his doctors. We discussed that our goal is to treat any acute infection process that is currently occurring and to have wound care evaluate him to place proper dressings on his wound to optimize healing. Patient states that he understands. Ming Mead PGY2 <Galen Alston H - Last Filed: 03/10/18 12:47> Objective - Vital Signs/Intake and Output Vital Signs (last 24 hours): Temp Pulse Resp BP Pulse Ox 98.7 F 84 20 171/78 H 96 03/10/18 08:28 03/10/18 08:28 03/10/18 08:28 03/10/18 10:44 03/10/18 08:28 Intake and Output: 03/10/18 03/10/18 06:59 18:59 Intake Total 540 Output Total 1600 Balance -1060 - Medications Medications: Current Medications Acetaminophen (Tylenol 325mg Tab) 650 mg PO Q6 PRN PRN Reason: Fever >100.4 F Amlodipine Besylate (Norvasc) 5 mg PO Q24H [facility] Aspirin (Ecotrin) 81 mg PO DAILY [facility] Last Admin: 03/10/18 10:51 Dose: 81 mg Docusate Sodium (Colace) 100 mg PO BID [facility] Last Admin: 03/10/18 10:44 Dose: 100 mg Enalapril Maleate (Vasotec) 20 mg PO BID [facility] Last Admin: 03/10/18 10:44 Dose: 20 mg Enoxaparin Sodium (Lovenox) 40 mg SC DAILY [facility] Last Admin: 03/10/18 10:44 Dose: 40 mg Escitalopram Oxalate (Lexapro) 10 mg PO DAILY [facility] Last Admin: 03/10/18 10:44 Dose: 10 mg Glipizide (Glucotrol) 5 mg PO ACB [facility] Stop: 03/11/18 07:31 Last Admin: 03/10/18 08:17 Dose: 5 mg Ceftriaxone Sodium 1 gm/ (Sodium Chloride) 100 mls @ 100 mls/hr IVPB Q24H [facility] PRN Reason: Protocol Last Admin: 03/09/18 21:37 Dose: 100 mls/hr Vancomycin HCl 1 gm/ Sodium (Chloride) 200 mls @ 133.333 mls/hr IVPB Q12H [facility] PRN Reason: Protocol Last Admin: 03/10/18 08:17 Dose: 133.333 mls/hr Insulin Human Regular (Novolin R) 0 unit SC ACHS [facility] PRN Reason: Protocol Last Admin: 03/10/18 11:58 Dose: 3 unit Metformin HCl (Glucophage) 1,000 mg PO BID [facility] Metoprolol Succinate (Toprol Xl) 50 mg PO DAILY [facility] Last Admin: 03/10/18 10:44 Dose: 50 mg - Labs Labs: 03/10/18 07:08 03/10/18 07:08 Attending/Attestation - Attestation I have personally seen and examined this patient.: Yes I have fully participated in the care of the patient.: Yes I have reviewed all pertinent clinical information, including history, physical exam and plan: Yes Notes (Text): 03/10/18 12:39 Medical attending: Patient was seen and examined by me. Agree with the above note by the resident The patient was doing well. He reported the pain had decreased substantially. He denied fevers. Also reported that the headache was also decreased as well The lab work remains stable. We are still pending the wound culture. Tommorow we need to have someone who speaks Urdu really well explain to him that [facility] does NOT have a facial surgeon or a dematolgist that comes this hospital. We need to explain to him that whilke we can treat the cellulitis - because of the extent of the wounds he ultimately needs to see facial surgery. The situation is made more complicated because he does not speak [place] and also is bilateral BKA. In the future he has to be able to tell people that he has to go to a much larger medical facility. Galen Alston
[2018-03-10] MEDS ORDERED: POLYETHYLENE GLYCOL 3350 17 GM/Dose PACKET PO ONE (08:41)
[2018-03-10] MEDS: Enoxaparin 40 mg Syringe SC SCH (10:44)
[2018-03-10] MEDS: Metoprolol Succinate 50 mg XL Tab PO SCH (10:44)
[2018-03-11] MEDS: Vancomycin 1 GM in Sodium Chloride 0.9% 200 ML IVPB SCH ×2 (06:09→18:03)
[2018-03-11] MEDS: (Novolin R) Insulin Human Regular 100 units/ml vial SC SCH ×4 (07:39→21:54)
[2018-03-11 07:57] LABS: BASO # 0.1 K/uL (0.0-0.2); BASO % 0.8 % (0.0-2.0); EOS # 0.4 K/uL (0.0-0.7); EOS % 5.4 % (0.0-4.0); LYMPH # 1.9 K/uL (1.0-4.3); LYMPH % 25.7 % (20.0-40.0); MEAN CELL VOLUME 87.7 fL (80.0-94.0); MEAN CORPUSCULAR HEMOGLOBIN 30.2 pg (27.0-31.0); MEAN CORPUSCULAR HGB CONC 34.5 g/dL (33.0-37.0); MEAN PLATELET VOLUME 9.4 fL (7.2-11.7); MONO # 0.6 K/uL (0.0-0.8); MONO % 7.8 % (0.0-10.0); NEUT # 4.4 K/uL (1.8-7.0); NEUT % 60.3 % (50.0-75.0); RBC 3.64 Mil/uL (4.40-5.90); RED CELL DISTRIBUTION WIDTH 13.7 % (11.5-14.5); WHITE BLOOD COUNT 7.3 K/uL (4.8-10.8)
[2018-03-11 08:15] LABS: ALBUMIN 3.5 g/dL (3.5-5.0); ALT/SGPT 16 U/L (21-72); AST/SGOT 17 U/L (17-59); BLOOD UREA NITROGEN 19 mg/dL (9-20); CALCIUM 8.5 mg/dl (8.6-10.4); GFR AFRICAN-AMERICAN > 60; GFR NON-AFRICAN AMERICAN > 60
[2018-03-11] MEDS ORDERED: POLYETHYLENE GLYCOL 3350 17 GM/Dose PACKET PO ONE (09:15)
[2018-03-11] MEDS: Metoprolol Succinate 50 mg XL Tab PO SCH (10:04)
[2018-03-11] MEDS: Enoxaparin 40 mg Syringe SC SCH (10:04)
--- NOTE | 2018-03-11 13:27 | CP.PCM.PN ---
Subjective - Date & Time of Evaluation Date of Evaluation: 03/11/18 Time of Evaluation: 07:00 - Subjective Subjective: PGY1- Medicine Note for Dr. Jon Pt seen and examined at bedside. Nursing reports no acute events overnight. Patient reports the erythema in his face has improved since admission, but he still feels pain. Patient also still complains of constipation. He denies fever , chills, chest pain, abd pain, N/V. Objective - Vital Signs/Intake and Output Vital Signs (last 24 hours): Temp Pulse Resp BP Pulse Ox 98.2 F 79 20 116/68 98 03/11/18 07:54 03/11/18 07:54 03/11/18 07:54 03/11/18 10:04 03/11/18 07:54 Intake and Output: 03/11/18 03/11/18 06:59 18:59 Intake Total 540 400 Output Total 700 800 Balance -160 -400 - Medications Medications: Current Medications Acetaminophen (Tylenol 325mg Tab) 650 mg PO Q6 PRN PRN Reason: Fever >100.4 F Amlodipine Besylate (Norvasc) 5 mg PO Q24H [facility] Last Admin: 03/10/18 17:16 Dose: 5 mg Aspirin (Ecotrin) 81 mg PO DAILY [facility] Last Admin: 03/11/18 10:04 Dose: 81 mg Docusate Sodium (Colace) 100 mg PO BID [facility] Last Admin: 03/11/18 10:04 Dose: 100 mg Enalapril Maleate (Vasotec) 20 mg PO BID [facility] Last Admin: 03/11/18 10:04 Dose: 20 mg Enoxaparin Sodium (Lovenox) 40 mg SC DAILY [facility] Last Admin: 03/11/18 10:04 Dose: 40 mg Escitalopram Oxalate (Lexapro) 10 mg PO DAILY [facility] Last Admin: 03/11/18 10:04 Dose: 10 mg Ceftriaxone Sodium 1 gm/ (Sodium Chloride) 100 mls @ 100 mls/hr IVPB Q24H [facility] PRN Reason: Protocol Last Admin: 03/10/18 21:16 Dose: 100 mls/hr Vancomycin HCl 1 gm/ Sodium (Chloride) 200 mls @ 133.333 mls/hr IVPB Q12H [facility] PRN Reason: Protocol Last Admin: 03/11/18 06:09 Dose: 133.333 mls/hr Insulin Human Regular (Novolin R) 0 unit SC ACHS [facility] PRN Reason: Protocol Last Admin: 03/11/18 12:16 Dose: 2 unit Metformin HCl (Glucophage) 1,000 mg PO BID [facility] Last Admin: 03/11/18 10:04 Dose: 1,000 mg Metoprolol Succinate (Toprol Xl) 50 mg PO DAILY [facility] Last Admin: 03/11/18 10:04 Dose: 50 mg - Labs Labs: 03/11/18 07:48 03/11/18 07:48 - Additional Findings Additional findings: - Constitutional Appears: Non-toxic, Chronically Ill - Head Exam Additional comments: Erythema and erosion of nasal cartilage on left side of head - cellulitis improving - Eye Exam Eye Exam: EOMI, Periorbital swelling (below left eye), Periorbital tenderness ( below left eye) Pupil Exam: Unequal (left eye pupil smaller compared to right) - ENT Exam Additional comments: Erythema and erosion of nasal cartilage, missing left side of nose and part of left lip. healing eschar on left side of face and lip. - Neck Exam Neck exam: Negative for: Lymphadenopathy - Respiratory Exam Respiratory Exam: Clear to Auscultation Bilateral, NORMAL BREATHING PATTERN. absent: Accessory Muscle Use, Rales, Rhonchi, Wheezes, Respiratory Distress - Cardiovascular Exam Cardiovascular Exam: REGULAR RHYTHM, +S1, +S2 - GI/Abdominal Exam GI & Abdominal Exam: Normal Bowel Sounds, Soft. absent: Distended, Firm, Guarding, Rigid, Tenderness - Extremities Exam Additional comments: b/l bka - Neurological Exam Neurological exam: Alert, CN II-XII Intact, Oriented x3 - Psychiatric Exam Psychiatric exam: Normal Affect, Normal Mood - Skin Skin Exam: Dry, Warm Assessment and Plan - Assessment and Plan (Free Text) Assessment: Facial cellulitis Observe on med/surg afebrile - reports subjective fevers Worsening cellulitis of face with erosion of areas of nose/face. Head CT 03/08: No acute intracranial abnormality. Focal bony defect in the right frontal bone with associated thickening of the overlying skin without evidence for encephalocele. A dedicated MRI of the brain without and with intravenous contrast is recommended for further evaluation. Orbit CT 03/08: Normal contrast enhanced CT of the orbits. Bilateral nasal soft tissue defects, larger on the left and abnormal soft-tissue thickening anterior superior to the maxilla without evidence for abscess or drainable fluid collection. Diffuse left facial skin thickening with abnormal soft-tissue anterior to the mandible and maxilla predominantly to the left as well as left preseptal soft tissue thickening most compatible with cellulitis. No evidence for abscess or drainable fluid collection. No definite evidence for osteomyelitis. * Addendum: Since the prior examination, there has been no significant interval change in diffuse facial skin thickening and abnormal pre maxillary and pre mandibular soft tissue thickening without evidence for drainable fluid collection. There is also submental and submandibular lymphadenopathy, likely reactive. Findings may represent acute and/or chronic cellulitis, clinical correlation and follow-up is warranted. wound care consulted erythema outlined on face - improving from admission Vancomycin 1gm IVPB q12h (started on 03/08) Rocephin 1gm IVPB q12h (started on 03/08) Hypertension uncontrolled - BP 212/90 upon admission Enalapril Maleate 20mg PO BID Metoprolol Succ. 50mg PO daily Norvasc 5mg PO Q24H continue to monitor, will adjust as needed CAD ASA 81 mg PO Daily DM2 (diabetes mellitus, type 2) Last Hgb A1c 10.1 on 04/07/17 * f/u new Hgb A1c accuchecks ISS SC ACHS Restart home metformin 1,000mg PO BID Glipizide 5mg PO ACB Anxiety/Depression Lexapro 10mg PO Daily Constipation Colace 100mg PO BID Miralax once on 03/10 and once on 03/11 Prophylactic measure Lovenox 40mg SC daily No GI ppx indicated at this time SCDs not required due to BKA Disposition: Patient has been following with [facility] for reconstructive surgery for erosion of nasal cartilage. Patient was informed that we do not have those services here and that he needs to follow up with his doctors. We discussed that our goal is to treat any acute infection process that is currently occurring and to have wound care evaluate him to place proper dressings on his wound to optimize healing. Patient states that he understands.
--- NOTE | 2018-03-11 16:38 | CARD ---
APPROVED REPORT EKG Measurement Heart [id number] DC [id number] [id number] <Conclusion> Normal sinus rhythm Borderline ECG
[2018-03-12 06:15] LABS: BASO # 0.1 K/uL (0.0-0.2); BASO % 1.1 % (0.0-2.0); EOS # 0.4 K/uL (0.0-0.7); EOS % 5.8 % (0.0-4.0); HEMOGLOBIN 11.2 g/dL (12.0-18.0); LYMPH # 1.8 K/uL (1.0-4.3); LYMPH % 25.7 % (20.0-40.0); MEAN CELL VOLUME 87.9 fL (80.0-94.0); MEAN CORPUSCULAR HEMOGLOBIN 29.6 pg (27.0-31.0); MEAN CORPUSCULAR HGB CONC 33.7 g/dL (33.0-37.0); MEAN PLATELET VOLUME 9.8 fL (7.2-11.7); MONO # 0.5 K/uL (0.0-0.8); NEUT # 4.3 K/uL (1.8-7.0); NEUT % 60.4 % (50.0-75.0); RBC 3.8 Mil/uL (4.40-5.90); RED CELL DISTRIBUTION WIDTH 13.7 % (11.5-14.5); WHITE BLOOD COUNT 7.2 K/uL (4.8-10.8)
[2018-03-12] MEDS: Vancomycin 1 GM in Sodium Chloride 0.9% 200 ML IVPB SCH (06:29)
[2018-03-12 06:44] LABS: ALBUMIN 3.7 g/dL (3.5-5.0); ALT/SGPT 18 U/L (21-72); AST/SGOT 18 U/L (17-59); BLOOD UREA NITROGEN 19 mg/dL (9-20); CALCIUM 8.6 mg/dl (8.6-10.4); GFR AFRICAN-AMERICAN > 60; GFR NON-AFRICAN AMERICAN > 60
[2018-03-12] MEDS ORDERED: Bisacodyl 5mg EC Tab PO ONE (07:48)
[2018-03-12] MEDS: (Novolin R) Insulin Human Regular 100 units/ml vial SC SCH ×4 (08:18→21:14)
[2018-03-12] MEDS: Enoxaparin 40 mg Syringe SC SCH (09:31)
[2018-03-12] MEDS: Metoprolol Succinate 50 mg XL Tab PO SCH (09:34)
[2018-03-12] MEDS: Vancomycin 1 gm/NS 200 ml 1 GM/200 ML BAG IVPB SCH (18:46)
[2018-03-13] MEDS: Vancomycin 1 gm/NS 200 ml 1 GM/200 ML BAG IVPB SCH ×2 (05:59→20:09)
[2018-03-13 06:37] LABS: BASO # 0.1 K/uL (0.0-0.2); EOS # 0.3 K/uL (0.0-0.7); EOS % 4.5 % (0.0-4.0); HEMOGLOBIN 10.8 g/dL (12.0-18.0); LYMPH # 1.6 K/uL (1.0-4.3); LYMPH % 21.4 % (20.0-40.0); MEAN CELL VOLUME 87.3 fL (80.0-94.0); MEAN CORPUSCULAR HGB CONC 35.5 g/dL (33.0-37.0); MEAN PLATELET VOLUME 9.4 fL (7.2-11.7); MONO # 0.6 K/uL (0.0-0.8); MONO % 7.7 % (0.0-10.0); NEUT % 65.4 % (50.0-75.0); RBC 3.5 Mil/uL (4.40-5.90); RED CELL DISTRIBUTION WIDTH 13.9 % (11.5-14.5); WHITE BLOOD COUNT 7.6 K/uL (4.8-10.8)
[2018-03-13 06:52] LABS: ALBUMIN 3.4 g/dL (3.5-5.0); ALT/SGPT 11 U/L (21-72); AST/SGOT 17 U/L (17-59); BLOOD UREA NITROGEN 20 mg/dL (9-20); CALCIUM 8.6 mg/dl (8.6-10.4); GFR AFRICAN-AMERICAN > 60; GFR NON-AFRICAN AMERICAN > 60
[2018-03-13] MEDS ORDERED: Sod Polystyrene Sulf 15 gm/60 ml Susp PO ONE (08:00)
[2018-03-13] MEDS: (Novolin R) Insulin Human Regular 100 units/ml vial SC SCH ×4 (08:04→21:32)
[2018-03-13] MEDS: Enoxaparin 40 mg Syringe SC SCH (09:26)
[2018-03-13] MEDS: Metoprolol Succinate 50 mg XL Tab PO SCH (09:28)
--- NOTE | 2018-03-13 14:37 | CP.PCM.PN ---
Subjective - Date & Time of Evaluation Date of Evaluation: 03/13/18 Time of Evaluation: 07:00 - Subjective Subjective: PGY2-Medicine Note Patient seen and examined at bedside and in no acute distress. Patient was to be discharged, but K+ found to be 5.5 today and elevated bp. Kayexalate 30gm given, Potassium will be repeated and medication given accordingly. Objective - Vital Signs/Intake and Output Vital Signs (last 24 hours): Temp Pulse Resp BP Pulse Ox 98.1 F 85 20 157/76 H 98 03/13/18 08:47 03/13/18 11:24 03/13/18 08:47 03/13/18 11:24 03/13/18 08:47 Intake and Output: 03/13/18 03/13/18 06:59 18:59 Intake Total 1090 Output Total 1000 Balance 90 - Medications Medications: Current Medications Acetaminophen (Tylenol 325mg Tab) 650 mg PO Q6 PRN PRN Reason: Fever >100.4 F Amlodipine Besylate (Norvasc) 10 mg PO Q24H [facility] Last Admin: 03/13/18 08:05 Dose: 10 mg Aspirin (Ecotrin) 81 mg PO DAILY [facility] Last Admin: 03/13/18 09:28 Dose: 81 mg Docusate Sodium (Colace) 100 mg PO BID [facility] Last Admin: 03/13/18 09:27 Dose: 100 mg Enalapril Maleate (Vasotec) 20 mg PO DAILY [facility] Last Admin: 03/13/18 09:27 Dose: 20 mg Enoxaparin Sodium (Lovenox) 40 mg SC DAILY [facility] Last Admin: 03/13/18 09:26 Dose: 40 mg Escitalopram Oxalate (Lexapro) 10 mg PO DAILY [facility] Last Admin: 03/13/18 09:26 Dose: 10 mg Ceftriaxone Sodium 1 gm/ (Sodium Chloride) 100 mls @ 100 mls/hr IVPB Q24H [facility] PRN Reason: Protocol Last Admin: 03/12/18 20:03 Dose: 100 mls/hr Vancomycin/Sodium Chloride (Vancomycin 1 Gm/Ns 200 Ml) 1 gm in 200 mls @ 166.7 mls/hr IVPB Q12H [facility] PRN Reason: Protocol Stop: 03/17/18 19:01 Last Admin: 03/13/18 05:59 Dose: 166.7 mls/hr Insulin Human Regular (Novolin R) 0 unit SC ACHS [facility] PRN Reason: Protocol Last Admin: 03/13/18 11:55 Dose: 4 unit Metformin HCl (Glucophage) 1,000 mg PO BID [facility] Last Admin: 03/13/18 09:26 Dose: 1,000 mg Metoprolol Succinate (Toprol Xl) 50 mg PO DAILY [facility] Last Admin: 03/13/18 09:28 Dose: 50 mg Mupirocin (Bactroban Ointment) 0 gm TOP DAILY [facility] - Labs Labs: 03/13/18 06:25 03/13/18 06:25 - Additional Findings Additional findings: - Constitutional Appears: Non-toxic, Chronically Ill - Head Exam Additional comments: Erythema and erosion of nasal cartilage on left side of head - cellulitis improving - Eye Exam Eye Exam: EOMI, Periorbital swelling (below left eye), Periorbital tenderness ( below left eye) Pupil Exam: Unequal (left eye pupil smaller compared to right) - ENT Exam Additional comments: Erythema and erosion of nasal cartilage, missing left side of nose and part of left lip. healing eschar on left side of face and lip. - Neck Exam Neck exam: Negative for: Lymphadenopathy - Respiratory Exam Respiratory Exam: Clear to Auscultation Bilateral, NORMAL BREATHING PATTERN. absent: Accessory Muscle Use, Rales, Rhonchi, Wheezes, Respiratory Distress - Cardiovascular Exam Cardiovascular Exam: REGULAR RHYTHM, +S1, +S2 - GI/Abdominal Exam GI & Abdominal Exam: Normal Bowel Sounds, Soft. absent: Distended, Firm, Guarding, Rigid, Tenderness - Extremities Exam Additional comments: b/l bka - Neurological Exam Neurological exam: Alert, CN II-XII Intact, Oriented x3 - Psychiatric Exam Psychiatric exam: Normal Affect, Normal Mood - Skin Skin Exam: Dry, Warm Assessment and Plan - Assessment and Plan (Free Text) Assessment: Facial cellulitis Observe on med/surg afebrile - reports subjective fevers Worsening cellulitis of face with erosion of areas of nose/face. Head CT 03/08: No acute intracranial abnormality. Focal bony defect in the right frontal bone with associated thickening of the overlying skin without evidence for encephalocele. A dedicated MRI of the brain without and with intravenous contrast is recommended for further evaluation. Orbit CT 03/08: Normal contrast enhanced CT of the orbits. Bilateral nasal soft tissue defects, larger on the left and abnormal soft-tissue thickening anterior superior to the maxilla without evidence for abscess or drainable fluid collection. Diffuse left facial skin thickening with abnormal soft-tissue anterior to the mandible and maxilla predominantly to the left as well as left preseptal soft tissue thickening most compatible with cellulitis. No evidence for abscess or drainable fluid collection. No definite evidence for osteomyelitis. * Addendum: Since the prior examination, there has been no significant interval change in diffuse facial skin thickening and abnormal pre maxillary and pre mandibular soft tissue thickening without evidence for drainable fluid collection. There is also submental and submandibular lymphadenopathy, likely reactive. Findings may represent acute and/or chronic cellulitis, clinical correlation and follow-up is warranted. wound care consulted erythema outlined on face - improving from admission Vancomycin 1gm IVPB q12h (started on 03/08) Rocephin 1gm IVPB q12h (started on 03/08) Hyperkalemia K+ 5.5 on 03/13 Kayexalate given f/u repeat K+ Hypertension uncontrolled - BP 212/90 upon admission Enalapril Maleate 20mg changed to po daily from BID on 03/13 Metoprolol Succ. 50mg PO daily Norvasc 10mg PO Q24H increased from 5mg on 03/13 continue to monitor, will adjust as needed CAD ASA 81 mg PO Daily DM2 (diabetes mellitus, type 2) Last Hgb A1c 10.1 on 04/07/17 * f/u new Hgb A1c accuchecks ISS SC ACHS Restart home metformin 1,000mg PO BID Glipizide 5mg PO ACB Anxiety/Depression Lexapro 10mg PO Daily Constipation Colace 100mg PO BID Miralax once on 03/10 and once on 03/11 Prophylactic measure Lovenox 40mg SC daily No GI ppx indicated at this time SCDs not required due to BKA
--- NOTE | 2018-03-13 17:17 | CP.PCM.DIS ---
Provider - Provider Date of Admission: 03/08/18 16:24 Attending physician: Mila Curiel MD Time Spent in preparation of Discharge (in minutes): 35 Diagnosis - Discharge Diagnosis (1) Cellulitis Status: Chronic (2) Hypertension Status: Chronic (3) DM2 (diabetes mellitus, type 2) Status: Chronic Hospital Course - Lab Results Lab Results: Micro Results 03/08/18 13:48 Blood Blood Culture - Final NO GROWTH AFTER 5 DAYS 03/08/18 13:48 Blood Blood Culture - Final NO GROWTH AFTER 5 DAYS Most Recent Lab Values WBC 7.6 K/uL (4.8-10.8) 03/13/18 06:25 RBC 3.50 Mil/uL (4.40-5.90) L 03/13/18 06:25 Hgb 10.8 g/dL (12.0-18.0) L 03/13/18 06:25 Hct 30.5 % (35.0-51.0) L 03/13/18 06:25 MCV 87.3 fL (80.0-94.0) 03/13/18 06:25 MCH 31.0 pg (27.0-31.0) 03/13/18 06:25 MCHC 35.5 g/dL (33.0-37.0) 03/13/18 06:25 RDW 13.9 % (11.5-14.5) 03/13/18 06:25 Plt Count 276 K/uL (130-400) 03/13/18 06:25 MPV 9.4 fL (7.2-11.7) 03/13/18 06:25 Neut % (Auto) 65.4 % (50.0-75.0) 03/13/18 06:25 Lymph % (Auto) 21.4 % (20.0-40.0) 03/13/18 06:25 [place] % (Auto) 7.7 % (0.0-10.0) 03/13/18 06:25 Eos % (Auto) 4.5 % (0.0-4.0) H 03/13/18 06:25 Baso % (Auto) 1.0 % (0.0-2.0) 03/13/18 06:25 Neut # (Auto) 5.0 K/uL (1.8-7.0) 03/13/18 06:25 Lymph # (Auto) 1.6 K/uL (1.0-4.3) 03/13/18 06:25 [place] # (Auto) 0.6 K/uL (0.0-0.8) 03/13/18 06:25 Eos # (Auto) 0.3 K/uL (0.0-0.7) 03/13/18 06:25 Baso # (Auto) 0.1 K/uL (0.0-0.2) 03/13/18 06:25 ESR 98 mm/hr (0-15) H 03/10/18 07:08 pO2 63 mm/Hg (30-55) H 03/08/18 14:03 VBG pH 7.19 (7.32-7.43) L* 03/08/18 14:03 VBG pCO2 60 mmHg (40-60) 03/08/18 14:03 VBG HCO3 19.8 mmol/L 03/08/18 14:03 VBG Total CO2 24.7 mmol/L (22-28) 03/08/18 14:03 VBG O2 Sat (Calc) 90.2 % (40-65) H 03/08/18 14:03 VBG Base Excess -6.2 mmol/L (0.0-2.0) L 03/08/18 14:03 VBG Potassium > 20.0 mmol/L (3.6-5.2) H* 03/08/18 14:03 Sodium 129.0 mmol/l (132-148) L 03/08/18 14:03 Chloride 105.0 mmol/L (98-107) 03/08/18 14:03 Glucose 191 mg/dl (75-110) H 03/08/18 14:03 Lactate 1.6 mmol/L (0.7-2.1) 03/08/18 14:03 Crit Value Called To Dr joyce 03/08/18 14:03 Crit Value Called By Karyn martinez collections technician 03/08/18 14:03 Crit Value Read Back Y 03/08/18 14:03 Blood Gas Notified Time 1410 03/08/18 14:03 Sodium 137 mmol/L (132-148) 03/13/18 06:25 Potassium 4.8 mmol/L (3.6-5.2) 03/13/18 14:02 Chloride 106 mmol/L (98-107) 03/13/18 06:25 Carbon Dioxide 25 mmol/L (22-30) 03/13/18 06:25 Anion Gap 12 (10-20) 03/13/18 06:25 BUN 20 mg/dL (9-20) 03/13/18 06:25 Creatinine 0.9 mg/dL (0.8-1.5) 03/13/18 06:25 Est GFR ( Amer) > 60 03/13/18 06:25 Est GFR (Non-Af Amer) > 60 03/13/18 06:25 POC Glucose (mg/dL) 121 mg/dL (65-110) H 03/13/18 15:55 Random Glucose 192 mg/dL (75-110) H 03/13/18 06:25 Hemoglobin A1c 8.1 % (4.2-6.5) H 03/09/18 08:58 Calcium 8.6 mg/dl (8.6-10.4) 03/13/18 06:25 Total Bilirubin 0.2 mg/dL (0.2-1.3) 03/13/18 06:25 AST 17 U/L (17-59) 03/13/18 06:25 ALT 11 U/L (21-72) L D 03/13/18 06:25 Alkaline Phosphatase 111 U/L (38-126) 03/13/18 06:25 Total Protein 7.0 g/dL (6.3-8.3) 03/13/18 06:25 Albumin 3.4 g/dL (3.5-5.0) L 03/13/18 06:25 Globulin 3.6 gm/dL (2.2-3.9) 03/13/18 06:25 Albumin/Globulin Ratio 1.0 (1.0-2.1) 03/13/18 06:25 Procalcitonin < 0.05 NG/ML (0.19-0.49) L 03/10/18 07:08 Venous Blood Potassium > 20.0 mmol/L (3.6-5.2) H* 03/08/18 14:03 Vancomycin Trough 11.0 ug/mL (5.0-10.0) H 03/12/18 05:42 - Hospital Course Hospital Course: "Patient is a 52 year old male with a past medical history of hypertension, diabetes (b/l BKA 2/2 uncontrolled diabetes) and hx cellulitis with erosion into the nasal cartilage of the face. Patient is coming to the hospital for a worsening infection of the face and blurry vision for one month. Patient has noticed that the erythema on his face has started to move upwards towards his eye over the past month. He is now experiencing paresthesia to the entire left side of his face. He was originally evaluated for his infection at [facility] for the infection over one year ago. He was follow up with plastic reconstructive surgery at [facility] but they told him he needs to see dermatology before they can do the procedure. He has made multiple appointment with dermatology but they have cancelled on him many times and he is getting frustrated. He has never seen wound care for the infection that has applying dry gauze pads to the wound that has been seeping "water" for a couple of months. Everytime that he peels the gauze off, his skin begins to bleed a little bit. He has not taken his temperature at home but complains of a burning feeling throughout his body and feeling feverish. He has no other complaints at this time. He states he is compliant with his medications. Denies nausea, vomiting, diarrhea, constipation, chest pain, shortness of breath, abdominal pain or recent illness." Patient has had worsening cellulitis on face with erosion into the nasal cartilage for one year, admitted for infection of the area. Head CT 03/08 showed No acute intracranial abnormality. Focal bony defect in the right frontal bone with associated thickening of the overlying skin without evidence for encephalocele. A dedicated MRI of the brain without and with intravenous contrast is recommended for further evaluation. Orbit CT 03/08 showed Normal contrast enhanced CT of the orbits. Bilateral nasal soft tissue defects, larger on the left and abnormal soft-tissue thickening anterior superior to the maxilla without evidence for abscess or drainable fluid collection. Diffuse left facial skin thickening with abnormal soft-tissue anterior to the mandible and maxilla predominantly to the left as well as left preseptal soft tissue thickening most compatible with cellulitis. No evidence for abscess or drainable fluid collection. No definite evidence for osteomyelitis. * Addendum: Since the prior examination, there has been no significant interval change in diffuse facial skin thickening and abnormal pre maxillary and pre mandibular soft tissue thickening without evidence for drainable fluid collection. There is also submental and submandibular lymphadenopathy, likely reactive. Findings may represent acute and/or chronic cellulitis, clinical correlation and follow-up is warranted. Wound care was consulted. Antibiotics were started: Vanco 1g ivpb q12h, Rocephin 1gm IVBP q12h. Patient's hypertension was uncontrolled on admission. Patient was treated with Enalapril Maleate 20mg changed to po daily from BID on 03/13, Metoprolol Succ. 50mg PO daily, and Norvasc 10mg PO Q24H increased from 5mg on 03/13. For patient CAD patient was given ASA 81mg po daily. Patient's DMII treated with accuchecks, ISS SC, ACHS, and home metformin 1, 000mg PO BID, Glipizide 5mg PO ACB. Patient's HgA1c was 8.1. Patient was given Lexapro 10mg daily for Depression. Patient was given colace and miralax for constipation during admission. On 03/13 patient was found to have hyperkalemia and was given kayexalate on repeat blood work K+ was within normal limits. Patient to follow up with [facility] for further management to be evaluated for reconstructive surgery. This is a summary of the patient's hospital course. Please see chart for details. Discharge Exam - Additional Findings Additional findings: - Constitutional Appears: Non-toxic, Chronically Ill - Head Exam Additional comments: Erythema and erosion of nasal cartilage on left side of head - cellulitis improving - Eye Exam Eye Exam: EOMI, Periorbital swelling (below left eye), Periorbital tenderness ( below left eye) Pupil Exam: Unequal (left eye pupil smaller compared to right) - ENT Exam Additional comments: Erythema and erosion of nasal cartilage, missing left side of nose and part of left lip. healing eschar on left side of face and lip. - Neck Exam Neck exam: Negative for: Lymphadenopathy - Respiratory Exam Respiratory Exam: Clear to Auscultation Bilateral, NORMAL BREATHING PATTERN. absent: Accessory Muscle Use, Rales, Rhonchi, Wheezes, Respiratory Distress - Cardiovascular Exam Cardiovascular Exam: REGULAR RHYTHM, +S1, +S2 - GI/Abdominal Exam GI & Abdominal Exam: Normal Bowel Sounds, Soft. absent: Distended, Firm, Guarding, Rigid, Tenderness - Extremities Exam Additional comments: b/l bka - Neurological Exam Neurological exam: Alert, CN II-XII Intact, Oriented x3 - Psychiatric Exam Psychiatric exam: Normal Affect, Normal Mood - Skin Skin Exam: Dry, Warm Discharge Plan - Discharge Medications Prescriptions: amLODIPine [Norvasc] 10 mg PO Q24H #30 tab Enalapril Maleate [Vasotec] 20 mg PO DAILY #30 tab Escitalopram [Lexapro] 10 mg PO DAILY #30 tab GlipiZIDE [Glucotrol] 5 mg PO ACB #30 tab levoFLOXacin [Levaquin] 500 mg PO DAILY #7 tab MetFORMIN [glucoPHAGE] 1,000 mg PO BID #60 tab Metoprolol Tartrate 50 mg PO Q12H #60 tablet Polyethylene Glycol 3350 [Miralax] 17 gm PO ONCE #3 packet Tramadol HCl [Ultram] 50 mg PO BID #14 tablet - Follow Up Plan Condition: STABLE Disposition: HOME/ ROUTINE Instructions: Diabetes Exchange Diet, Cellulitis (Skin Infection), Adult (DC) Additional Instructions: Patient stable for discharge as per Dr. Curiel. Patient to take: Levofloxacin 500mg daily for 7 days Ultram 50mg BID for 7 days as needed for pain Patient to increase water intake and eat prunes/ drink prune juice for constipation. Patient can also take Miralax as needed for constipation. Patient to also take the following medications as prescribed: Norvasc 10mg daily Enalapril 20mg daily Lexapro 10mg daily Glipizide 5mg before breakfast Metformin 1000mg twice a day Metoprolol Tartrate 50mg twice a day Patient has an appointment made for Dr. Whitt (plastic surgery) at [facility] on April 17 at 9am [phone] [id number] [facility] [address] Patient explained instructions who understands and agrees. Recommending to cleanse open wound/cellulitis with nss, rubbing away exudate, then applying bactroban, and gently packing/covering affected areas with calcium alginate/silver, then band-aid to be done daily. Will be following up with plastic in [facility].
[2018-03-14] MEDS: Vancomycin 1 gm/NS 200 ml 1 GM/200 ML BAG IVPB SCH (06:02)
[2018-03-14] MEDS: (Novolin R) Insulin Human Regular 100 units/ml vial SC SCH ×2 (07:55→11:31)
[2018-03-14 08:53] VITALS: TEMP 98.1; O2SAT 97
[2018-03-14] MEDS: Enoxaparin 40 mg Syringe SC SCH (09:25)
[2018-03-14] MEDS: Metoprolol Succinate 50 mg XL Tab PO SCH (09:26)
[2018-03-14 09:27] VITALS: BP 164/79
[2018-03-14 09:29] VITALS: PULSE 82
== END 2018-03-14 11:50 | disposition home or self-care (01) | DRG 603 ==
LOC: C.ER 12:33 → C.9E 16:24 → C.3T 17:37
PROVIDERS: ADMIT Internal Medicine; ATTEND Internal Medicine
DX: L03.211 Cellulitis of face (principal); E11.621 Type 2 diabetes mellitus with foot ulcer; L97.519 Non-pressure chronic ulcer of other part of right foot with unspecified severity; E87.5 Hyperkalemia; I10 Essential (primary) hypertension; F41.8 Other specified anxiety disorders; I25.10 Atherosclerotic heart disease of native coronary artery without angina pectoris; K59.00 Constipation, unspecified; Z79.4 Long term (current) use of insulin; R59.0 Localized enlarged lymph nodes; Z89.512 Acquired absence of left leg below knee; Z89.511 Acquired absence of right leg below knee

== ENCOUNTER 2018-07-21 20:05 | Inpatient (IN) | payer MEDICAID ==
--- NOTE | 2018-07-21 20:13 | C.PDOC ---
History Of Present Illness 53 year old male with PMHx of DM is brought to the ED by EMS for evaluation. 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 states she found patient on the floor unresp onsive. EMS were called, patient was unresponsive, intubated RSI. Patient's blood sugar was in the 80s. No further history able to be obtained due to patient's state. Time Seen by Provider: 07/21/18 20:12 History Per: EMS, Family History/Exam Limitations: clinical condition Onset/Duration Of Symptoms: Hrs Current Symptoms Are (Timing): Still Present Severity: Severe Pain Scale Rating Of: 9 Reports Recently: Treated By A Physician Recent travel outside of the [place]: No Additional History Per: EMS, Family Past Medical History Reviewed: Historical Data, Nursing Documentation, Vital Signs - Medical History PMH: Anemia, Depression, Diabetes, HTN Denies: HIV, Chronic Kidney Disease Surgical History: No Surg Hx - [facility] Procedures DETACHMENT AT RIGHT KNEE REGION, OPEN APPROACH (07/27/15) DRAINAGE OF R FOOT SUBCU/FASCIA, OPEN APPROACH, DIAGN (07/27/15) EXCISION OF R LOW LEG SUBCU/FASCIA, OPEN APPROACH (06/12/15) EXCISION OF RIGHT TARSAL, OPEN APPROACH (07/27/15) GAIT TRAINING/FUNCTIONAL AMBULATION TREATMENT (07/16/15) INSERTION OF INFUSION DEV INTO SUP VENA CAVA, PERC APPROACH (06/12/15) INTRODUCTION OF SERUM/TOX/VACCINE INTO MUSCLE, PERC APPROACH (07/16/15) ROM & JT MOBILITY TREATMENT OF MUSCULOSK LOW BACK/LE (07/16/15) THERAPEUTIC EXERCISE TREATMENT OF MUSCULOSK LOW BACK/LE (08/27/15) TRANSFUSE NONAUT RED BLOOD CELLS IN PERIPH VEIN, PERC (07/27/15) Family History: States: Unknown Family Hx - Social History Hx Alcohol Use: No Hx Substance Use: No - Immunization History Hx Tetanus Toxoid Vaccination: No Hx Influenza Vaccination: No Hx Pneumococcal Vaccination: No Review Of Systems Review Of Systems: ROS cannot be obtained secondary to pt's inabilty to answer questions. 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) Neck: Supple Chest: Symmetrical Cardiovascular: Rhythm Regular Respiratory: No Rales, Rhonchi (few), No Wheezing, Other (intubated, 7 ET tube ) Gastrointestinal/Abdominal: Bowel Sounds (active), Soft, No Tenderness, No Distention Back: Normal Inspection Extremity: Other (b/l bka) Extremity: Bilateral: Normal Color And Temperature, Other (BKA) Neurological/Psych: Other (Unresponsive, intubated) Gait: Unable To Assess ED Course And Treatment - Laboratory Results Result Diagrams: 07/21/18 20:28 07/21/18 20:28 ECG: Interpreted By Me, Viewed By Me ECG Rhythm: Sinus Rhythm (107), Nonspecific Changes O2 Sat by Pulse Oximetry: 100 Pulse Ox Interpretation: Normal - Radiology CXR: Interpreted by Me, Viewed By Me CXR Interpretation: Yes: Infiltrates, Other (ett in place). No: Fracture, Pnemothorax Progress Note: Plan: - ABG. - CT head. - EKG. - Labs. - CXR. - Protonix 40 mg IVP. - IV fluids. - Zofran 4 mg IVP. - Blood culture. - UA. unable to do nih scale as pt is intubated and paralized(chemically). spoke with dr ho - neurologist- ok to load up with new and get mri/mra. spoke with dr eid-statement clerks supervisor- will come and see the pt in the ed Critical Care Time - Critical Care Note Total Time (in mins): 40 Documented critical care: time excludes all time spent performing seperately billable procedures. Disposition Discussed With : Jamaal Rico Comment: accepted the pt on tn service and took over the care at 9:50PM Doctor Will See Patient In The: ED Counseled Patient/Family Regarding: Studies Performed, Diagnosis - Disposition Disposition: ELOPEMENT - ER ONLY Disposition Time: 20:13 Condition: CRITICAL - POA Present On Arrival: None - Clinical Impression Clinical Impression: Respiratory failure - Scribe Statement The provider has reviewed the documentation as recorded by the Scribe Joel Stein All medical record entries made by the Scribe were at my direction and personally dictated by me. I have reviewed the chart and agree that the record accurately reflects my personal performance of the history, physical exam, medical decision making, and the department course for this patient. I have also personally directed, reviewed, and agree with the discharge instructions and disposition. Decision To Admit - Pt Status Changed To: Hospital Disposition Of: Inpatient - Admit Certification Admit to Inpatient:: After my assessment, the patient will require hospitalization for at least two midnights. This is because of the severity of symptoms shown, intensity of services needed, and/or the medical risk in this patient being treated as an outpatient. - InPatient: Physician Admission Certification: I certify that this patient requires 2 or more midnights of care for the following reason:: After my assessment, the patient will require hospitalization for at least two midnights. This is because of the severity of symptoms shown, intensity of services needed, and/or the medical risk in this patient being treated as an outpatient. - . Bed Request Type: ICU Admitting Physician: Jamaal Rico Patient Diagnosis: Respiratory failure
[2018-07-21 20:15] VITALS: BMI 35.9
[2018-07-21] MEDS ORDERED: Sodium Chloride 0.9% 1,000 ML IV ONE (20:15)
[2018-07-21 20:28] LABS: BASO # 0.1 K/uL (0.0-0.2); BASO % 0.3 % (0.0-2.0); LYMPH # 1.2 K/uL (1.0-4.3); LYMPH % 6.3 % (20.0-40.0); MEAN CELL VOLUME 85.5 fL (80.0-94.0); MEAN CORPUSCULAR HGB CONC 33.9 g/dL (33.0-37.0); MEAN PLATELET VOLUME 10.3 fL (7.2-11.7); MONO # 1.9 K/uL (0.0-0.8); MONO % 9.9 % (0.0-10.0); NEUT # 15.8 K/uL (1.8-7.0); NEUT % 83.5 % (50.0-75.0); PLATELET COUNT 232 K/uL (130-400); RBC 3.44 Mil/uL (4.40-5.90); RED CELL DISTRIBUTION WIDTH 13.7 % (11.5-14.5)
[2018-07-21] MEDS ORDERED: Iodixanol 320 MG/ML 100 ML BOTTLE IV ONE (20:30)
[2018-07-21] MEDS ORDERED: Sodium Chloride 0.9% 1,000 ML ONE (20:32)
[2018-07-21 20:36] LABS: INR 1.4; PROTHROMBIN TIME 15.6 SECONDS (9.7-12.2)
[2018-07-21 20:37] LABS: ABG ALLEN TEST POS; ARTERIAL BLOOD GAS HCO3 18.6 mmol/L (21-28); ARTERIAL BLOOD GAS O2 SAT 95.7 % (95-98); ARTERIAL BLOOD GAS PCO2 38 mm/Hg (35-45); ARTERIAL BLOOD GAS PH 7.28 (7.35-7.45); ARTERIAL BLOOD GAS PO2 305 mm/Hg (80-100); ARTERIAL BLOOD GAS TCO2 19.1 mmol/L (22-28)
[2018-07-21 20:42] LABS: ALB/GLOB RATIO 0.8 (1.0-2.1); ALBUMIN 3.2 g/dL (3.5-5.0); ALT/SGPT 35 U/L (21-72); AST/SGOT 56 U/L (17-59); BLOOD UREA NITROGEN 43 mg/dL (9-20); CALCIUM 7.9 mg/dl (8.6-10.4); GFR NON-AFRICAN AMERICAN 40; HDL CHOLESTEROL 15 mg/dL (30-70); LIPASE 32 U/L (23-300)
[2018-07-21] MEDS ORDERED: Piperacillin/Tazobact 3.375 gm 100 ML IVPB STA (20:42)
[2018-07-21 20:43] LABS: SQUAMOUS EPITHIAL 1 /hpf (0-5); URINE BACTERIA MANY (<OCC); URINE BILIRUBIN NEGATIVE (NEGATIVE); URINE BLOOD 2+ (NEGATIVE); URINE CLARITY Hazy (Clear); URINE COLOR Amber (YELLOW); URINE GLUCOSE (UA) NORMAL (Normal); URINE LEUKOCYTE ESTERASE TRACE Leu/uL (Negative); URINE PROTEIN 2+ mg/dL (NEGATIVE); URINE UROBILINOGEN NORMAL mg/dL (0.2-1.0)
[2018-07-21 20:44] LABS: LYMPHOCYTE 4 % (20-40); MONOCYTE 3 % (0-10); NEUTROPHIL 93 % (50-75); PLATELET ESTIMATE NORMAL (NORMAL); TOTAL CELLS COUNTED 100
[2018-07-21] MEDS ORDERED: Vancomycin 1 GM 1 GM/250 ML BAG IVPB SCH (20:45)
[2018-07-21 20:52] LABS: LDL CHOLESTEROL 42 mg/dL (0-129)
[2018-07-21 20:56] LABS: B-TYPE NATRIURETIC PEPTIDE 216 pg/mL (0-900)
[2018-07-21] MEDS ORDERED: Piperacillin/Tazobact 3.375 gm 100 ML IVPB ONE ×2 (21:18→21:19)
[2018-07-21] MEDS ORDERED: Vancomycin 1 GM 1 GM/250 ML BAG IVPB ONE ×2 (21:54→22:00)
[2018-07-21 22:23] LABS: BARBITURATES, UR NEGATIVE (NEGATIVE); BENZODIAZEPINES, UR NEGATIVE (NEGATIVE); OPIATES, UR NEGATIVE (NEGATIVE); PHENCYCLIDINE, UR NEGATIVE (NEGATIVE)
--- NOTE | 2018-07-21 22:37 | CP.PCM.HP ---
<Rodriguez An M - Last Filed: 07/22/18 03:02> History of Present Illness - History of Present Illness History of Present Illness: H&P for hospitalist Dr. Rico. History obtained from previous records as patient is presently intubated and no family is at bedside. 53 w/ PMHx of uncontrolled DM, HTN, hx of cellulites w/ erosion of left nostril into cartilage was last seen responsive at 3pm by . About 45 minutes later, patients return to find patient unresponsive, gurgling. Patient was intubated onsite by EMS w/ paralytics Patient remains intubated at time of examination, unable to speak. 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 uncontrolled diabetes (from prior chart record) Social: Denies tobacco, alcohol or illicit drug use (from prior chart record) Present on Admission - Present on Admission Any Indicators Present on Admission: Yes History of DVT/PE: No History of Uncontrolled Diabetes: Yes Urinary Catheter: No Decubitus Ulcer Present: No Review of Systems - Review of Systems Systems not reviewed;Unavailable: Respiratory Distress, Intubated Past Patient History - Infectious Disease Hx of Infectious Diseases: None - Past Medical History & Family History Past Medical History?: Yes - Past Social History Smoking Status: Former Smoker - CARDIAC Hx Hypertension: Yes - PULMONARY Hx Respiratory Disorders: No - NEUROLOGICAL Hx Neurological Disorder: No - HEENT Hx HEENT Problems: No - RENAL Hx Chronic Kidney Disease: No - ENDOCRINE/METABOLIC Hx Diabetes Mellitus Type 1: Yes Hx Diabetes Mellitus Type 2: Yes - HEMATOLOGICAL/ONCOLOGICAL Hx Anemia: Yes Hx Human Immunodeficiency Virus (HIV): No - INTEGUMENTARY Hx Dermatological Problems: Yes Hx Cellulitis: Yes Other/Comment: Ulcer right foot - MUSCULOSKELETAL/RHEUMATOLOGICAL Hx Musculoskeletal Disorders: Yes (SEE COMMENT) Hx Falls: No Hx Osteomyelitis: Yes Other/Comment: BILATERAL BK-AMPUTATIONS - GASTROINTESTINAL Hx Gastrointestinal Disorders: No - GENITOURINARY/GYNECOLOGICAL Hx Genitourinary Disorders: No - PSYCHIATRIC Hx Depression: Yes Hx Substance Use: No - SURGICAL HISTORY Hx Surgeries: Yes Hx Amputation: Yes (Bilateral BKA) - ANESTHESIA Hx Anesthesia: Yes Hx Anesthesia Reactions: No Hx Malignant Hyperthermia: No Meds Allergies/Adverse Reactions: Allergies Allergy/AdvReac Type Severity Reaction Status Date / Time No Known Allergies Allergy Verified 07/21/18 20:06 Physical Exam - Constitutional Appears: Toxic, In Acute Distress - Head Exam Additional comments: erosion of nasal cartilage on left side of head - Eye Exam Pupil Exam: Fixed. absent: NORMAL ACCOMODATION, PERRL - ENT Exam ENT Exam: Mucous Membranes Moist - Respiratory Exam Respiratory Exam: Decreased Breath Sounds. absent: Clear to Auscultation Bilateral, NORMAL BREATHING PATTERN - Cardiovascular Exam Cardiovascular Exam: +S1, +S2 - GI/Abdominal Exam GI & Abdominal Exam: Soft. absent: Distended, Firm, Guarding - Extremities Exam Additional comments: B/L BKA - Neurological Exam Additional comments: Intubated - Skin Skin Exam: Warm Results - Vital Signs Recent Vital Signs: Last Vital Signs Temp 98.5 F 07/21/18 21:05 Pulse 97 H 07/21/18 22:21 Resp 18 07/21/18 22:21 BP 182/78 H 07/21/18 22:21 Pulse Ox 100 07/21/18 22:21 - Labs Result Diagrams: 07/21/18 20:28 07/21/18 20:28 Labs: Laboratory Results - last 24 hr 07/21/18 07/21/18 07/21/18 20:28 20:28 20:28 WBC 19.0 H D RBC 3.44 L Hgb 10.0 L Hct 29.4 L MCV 85.5 MCH 29.0 MCHC 33.9 RDW 13.7 Plt Count 232 MPV 10.3 Neut % (Auto) 83.5 H Lymph % (Auto) 6.3 L [place] % (Auto) 9.9 Eos % (Auto) 0.0 Baso % (Auto) 0.3 Neut # (Auto) 15.8 H Lymph # (Auto) 1.2 [place] # (Auto) 1.9 H Eos # (Auto) 0.0 Baso # (Auto) 0.1 Neutrophils % (Manual) 93 H Lymphocytes % (Manual) 4 L Monocytes % (Manual) 3 Platelet Estimate Normal PT 15.6 H INR 1.4 APTT 34 Puncture Site pCO2 pO2 HCO3 ABG pH ABG Total CO2 ABG O2 Saturation ABG Base Excess Flaco Test ABG Potassium A-a O2 Difference Respiratory Index Glucose Lactate FiO2 Sodium 130 L Potassium 3.3 L Chloride 95 L Carbon Dioxide 20 L Anion Gap 18 BUN 43 H Creatinine 1.8 H Est GFR ( Amer) 48 Est GFR (Non-Af Amer) 40 Random Glucose 95 Hemoglobin A1c Calcium 7.9 L Total Bilirubin 0.5 AST 56 ALT 35 Alkaline Phosphatase 178 H D Troponin I < 0.0120 NT-Pro-B Natriuret Pep 216 Total Protein 7.0 Albumin 3.2 L Globulin 3.9 Albumin/Globulin Ratio 0.8 L Triglycerides 263 H Cholesterol 121 LDL Cholesterol Direct 42 HDL Cholesterol 15 L Lipase 32 Arterial Blood Potassium Urine Color Urine Clarity Urine pH Ur Specific G[place]ier Urine Protein Urine Glucose (UA) Urine Ketones Urine Blood Urine Nitrate Urine Bilirubin Urine Urobilinogen Ur Leukocyte Esterase Urine WBC (Auto) Urine RBC (Auto) Ur Squamous Epith Cells Urine Bacteria Urine Opiates Screen Urine Methadone Screen Ur Barbiturates Screen Ur Phencyclidine Scrn Ur Amphetamines Screen U Benzodiazepines Scrn U Oth Cocaine Metabols U Cannabinoids Screen 07/21/18 07/21/18 07/21/18 20:30 20:31 20:31 WBC RBC Hgb Hct MCV MCH MCHC RDW Plt Count MPV Neut % (Auto) Lymph % (Auto) [place] % (Auto) Eos % (Auto) Baso % (Auto) Neut # (Auto) Lymph # (Auto) [place] # (Auto) Eos # (Auto) Baso # (Auto) Neutrophils % (Manual) Lymphocytes % (Manual) Monocytes % (Manual) Platelet Estimate PT INR APTT Puncture Site Rba pCO2 38 pO2 305 H HCO3 18.6 L ABG pH 7.28 L ABG Total CO2 19.1 L ABG O2 Saturation 95.7 ABG Base Excess -8.2 L Flaco Test Pos ABG Potassium 2.9 L A-a O2 Difference 218.0 Respiratory Index 0.7 Glucose 90 Lactate 0.8 FiO2 80.0 Sodium 128.0 L Potassium Chloride 100.0 Carbon Dioxide Anion Gap BUN Creatinine Est GFR ( Amer) Est GFR (Non-Af Amer) Random Glucose Hemoglobin A1c 8.9 H Calcium Total Bilirubin AST ALT Alkaline Phosphatase Troponin I NT-Pro-B Natriuret Pep Total Protein Albumin Globulin Albumin/Globulin Ratio Triglycerides Cholesterol LDL Cholesterol Direct HDL Cholesterol Lipase Arterial Blood Potassium 2.9 L Urine Color Connie Urine Clarity Hazy Urine pH 5.0 Ur Specific [place] 1.016 Urine Protein 2+ H Urine Glucose (UA) Normal Urine Ketones Negative Urine Blood 2+ H Urine Nitrate Negative Urine Bilirubin Negative Urine Urobilinogen Normal Ur Leukocyte Esterase Trace Urine WBC (Auto) 340 H Urine RBC (Auto) 6 H Ur Squamous Epith Cells 1 Urine Bacteria Many H Urine Opiates Screen Urine Methadone Screen Ur Barbiturates Screen Ur Phencyclidine Scrn Ur Amphetamines Screen U Benzodiazepines Scrn U Oth Cocaine Metabols U Cannabinoids Screen 07/21/18 22:03 WBC RBC Hgb Hct MCV MCH MCHC RDW Plt Count MPV Neut % (Auto) Lymph % (Auto) [place] % (Auto) Eos % (Auto) Baso % (Auto) Neut # (Auto) Lymph # (Auto) [place] # (Auto) Eos # (Auto) Baso # (Auto) Neutrophils % (Manual) Lymphocytes % (Manual) Monocytes % (Manual) Platelet Estimate PT INR APTT Puncture Site pCO2 pO2 HCO3 ABG pH ABG Total CO2 ABG O2 Saturation ABG Base Excess Flaco Test ABG Potassium A-a O2 Difference Respiratory Index Glucose Lactate FiO2 Sodium Potassium Chloride Carbon Dioxide Anion Gap BUN Creatinine Est GFR ( Amer) Est GFR (Non-Af Amer) Random Glucose Hemoglobin A1c Calcium Total Bilirubin AST ALT Alkaline Phosphatase Troponin I NT-Pro-B Natriuret Pep Total Protein Albumin Globulin Albumin/Globulin Ratio Triglycerides Cholesterol LDL Cholesterol Direct HDL Cholesterol Lipase Arterial Blood Potassium Urine Color Urine Clarity Urine pH Ur Specific [place] Urine Protein Urine Glucose (UA) Urine Ketones Urine Blood Urine Nitrate Urine Bilirubin Urine Urobilinogen Ur Leukocyte Esterase Urine WBC (Auto) Urine RBC (Auto) Ur Squamous Epith Cells Urine Bacteria Urine Opiates Screen Negative Urine Methadone Screen Negative Ur Barbiturates Screen Negative Ur Phencyclidine Scrn Negative Ur Amphetamines Screen Negative U Benzodiazepines Scrn Negative U Oth Cocaine Metabols Negative U Cannabinoids Screen Negative Assessment & Plan - Assessment and Plan (Free Text) Assessment: 53 w/ PMHx of uncontrolled DM, HTN, hx of cellulites w/ erosion of left nostril into cartilage was last seen responsive at 3pm by . About 45 minutes later, patients return to find patient unresponsive, gurgling. Patient was intubated onsite by EMS w/ paralytics Patient remains intubated at time of examination, unable to speak. Unresponsiveness, respiratory distress, with no significant hypoxia on ABG Suspected Seizure - CTA: mild stenosis of L& R common carotid bifurcation as well proximal internal carotid arteries no acute pathology, no significant stenosis. 0-39% estimated stenosis - CT head: no acute infarcts, white matter consistent w/ calcification - Train of 4 tested in ICU with no movement suggesting effect of paralytics rather anoxia - continue to sedate until paralytic wears off - precedex 200 mcg 0.2 mcg/kg/hr - keppra 1000 mcg 420 mls/hr - Bedside EEG Leucocytosis Suspected aspiration - Empiric abx for aspiration - doxycycline 100mg Q12H - Zosyn 2.25 mg Q6H - f/u procalcitonin - f/u blood cultures - f/u MRSA screen Renal insufficiency - Cr 1.8 from 0.9 (03/13) - Continue to monitor NIDDM - hold home meds - ISS - accuchecks Q6H - hypoglyemic protocol - HgA1C 8.9 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5 H Lymph % (Auto) 6.3 L [place] % (Auto) 9.9 Eos % (Auto) 0.0 Baso % (Auto) 0.3 Neut # (Auto) 15.8 H Lymph # (Auto) 1.2 [place] # (Auto) 1.9 H Eos # (Auto) 0.0 Baso # (Auto) 0.1 Neutrophils % (Manual) 93 H Lymphocytes % (Manual) 4 L Monocytes % (Manual) 3 Platelet Estimate Normal PT 15.6 H INR 1.4 APTT 34 Puncture Site pCO2 pO2 HCO3 ABG pH ABG Total CO2 ABG O2 Saturation ABG Base Excess ABG Hemoglobin ABG Carboxyhemoglobin POC ABG HHb (Measured) ABG Methemoglobin Flaco Test ABG Potassium A-a O2 Difference Respiratory Index Hgb O2 Saturation Glucose Lactate Vent Mode Mechanical Rate FiO2 Tidal Volume PEEP Sodium 130 L Potassium 3.3 L Chloride 95 L Carbon Dioxide 20 L Anion Gap 18 BUN 43 H Creatinine 1.8 H Est GFR ( Amer) 48 Est GFR (Non-Af Amer) 40 Random Glucose 95 Hemoglobin A1c Calcium 7.9 L Total Bilirubin 0.5 AST 56 ALT 35 Alkaline Phosphatase 178 H D Troponin I < 0.0120 NT-Pro-B Natriuret Pep 216 Total Protein 7.0 Albumin 3.2 L Globulin 3.9 Albumin/Globulin Ratio 0.8 L Triglycerides 263 H Cholesterol 121 LDL Cholesterol Direct 42 HDL Cholesterol 15 L Lipase 32 Arterial Blood Potassium Urine Color Urine Clarity Urine pH Ur Specific [place] Urine Protein Urine Glucose (UA) Urine Ketones Urine Blood Urine Nitrate Urine Bilirubin Urine Urobilinogen Ur Leukocyte Esterase Urine WBC (Auto) Urine RBC (Auto) Ur Squamous Epith Cells Urine Bacteria Urine Opiates Screen Urine Methadone Screen Ur Barbiturates Screen Ur Phencyclidine Scrn Ur Amphetamines Screen U Benzodiazepines Scrn U Oth Cocaine Metabols U Cannabinoids Screen Blood Type Antibody Screen 07/21/18 07/21/18 07/21/18 20:30 20:31 20:31 WBC RBC Hgb Hct MCV MCH MCHC RDW Plt Count MPV Neut % (Auto) Lymph % (Auto) [place] % (Auto) Eos % (Auto) Baso % (Auto) Neut # (Auto) Lymph # (Auto) [place] # (Auto) Eos # (Auto) Baso # (Auto) Neutrophils % (Manual) Lymphocytes % (Manual) Monocytes % (Manual) Platelet Estimate PT INR APTT Puncture Site Rba pCO2 38 pO2 305 H HCO3 18.6 L ABG pH 7.28 L ABG Total CO2 19.1 L ABG O2 Saturation 95.7 ABG Base Excess -8.2 L ABG Hemoglobin ABG Carboxyhemoglobin POC ABG HHb (Measured) ABG Methemoglobin Flaco Test Pos ABG Potassium 2.9 L A-a O2 Difference 218.0 Respiratory Index 0.7 Hgb O2 Saturation Glucose 90 Lactate 0.8 Vent Mode Mechanical Rate FiO2 80.0 Tidal Volume PEEP Sodium 128.0 L Potassium Chloride 100.0 Carbon Dioxide Anion Gap BUN Creatinine Est GFR ( Amer) Est GFR (Non-Af Amer) Random Glucose Hemoglobin A1c 8.9 H Calcium Total Bilirubin AST ALT Alkaline Phosphatase Troponin I NT-Pro-B Natriuret Pep Total Protein Albumin Globulin Albumin/Globulin Ratio Triglycerides Cholesterol LDL Cholesterol Direct HDL Cholesterol Lipase Arterial Blood Potassium 2.9 L Urine Color Connie Urine Clarity Hazy Urine pH 5.0 Ur Specific [place] 1.016 Urine Protein 2+ H Urine Glucose (UA) Normal Urine Ketones Negative Urine Blood 2+ H Urine Nitrate Negative Urine Bilirubin Negative Urine Urobilinogen Normal Ur Leukocyte Esterase Trace Urine WBC (Auto) 340 H Urine RBC (Auto) 6 H Ur Squamous Epith Cells 1 Urine Bacteria Many H Urine Opiates Screen Urine Methadone Screen Ur Barbiturates Screen Ur Phencyclidine Scrn Ur Amphetamines Screen U Benzodiazepines Scrn U Oth Cocaine Metabols U Cannabinoids Screen Blood Type Antibody Screen 07/21/18 07/21/18 07/22/18 21:25 22:03 05:46 WBC RBC Hgb Hct MCV MCH MCHC RDW Plt Count MPV Neut % (Auto) Lymph % (Auto) [place] % (Auto) Eos % (Auto) Baso % (Auto) Neut # (Auto) Lymph # (Auto) [place] # (Auto) Eos # (Auto) Baso # (Auto) Neutrophils % (Manual) Lymphocytes % (Manual) Monocytes % (Manual) Platelet Estimate PT INR APTT Puncture Site L rad pCO2 28 L pO2 183 H HCO3 20.6 L ABG pH 7.42 ABG Total CO2 19.1 L ABG O2 Saturation 95.9 ABG Base Excess -5.5 L ABG Hemoglobin 8.0 L ABG Carboxyhemoglobin 0 L POC ABG HHb (Measured) 4.1 ABG Methemoglobin 0.0 Flaco Test Pos ABG Potassium A-a O2 Difference 67.0 Respiratory Index 0.4 Hgb O2 Saturation 95.9 Glucose Lactate Vent Mode Prvc Mechanical Rate 16 FiO2 40.0 Tidal Volume 500 PEEP 5 Sodium Potassium Chloride Carbon Dioxide Anion Gap BUN Creatinine Est GFR ( Amer) Est GFR (Non-Af Amer) Random Glucose Hemoglobin A1c Calcium Total Bilirubin AST ALT Alkaline Phosphatase Troponin I NT-Pro-B Natriuret Pep Total Protein Albumin Globulin Albumin/Globulin Ratio Triglycerides Cholesterol LDL Cholesterol Direct HDL Cholesterol Lipase Arterial Blood Potassium Urine Color Urine Clarity Urine pH Ur Specific [place] Urine Protein Urine Glucose (UA) Urine Ketones Urine Blood Urine Nitrate Urine Bilirubin Urine Urobilinogen Ur Leukocyte Esterase Urine WBC (Auto) Urine RBC (Auto) Ur Squamous Epith Cells Urine Bacteria Urine Opiates Screen Negative Urine Methadone Screen Negative Ur Barbiturates Screen Negative Ur Phencyclidine Scrn Negative Ur Amphetamines Screen Negative U Benzodiazepines Scrn Negative U Oth Cocaine Metabols Negative U Cannabinoids Screen Negative Blood Type O POSITIVE Antibody Screen Negative 07/22/18 05:56 WBC 11.9 H RBC 2.91 L Hgb 8.4 L Hct 25.4 L MCV 87.3 MCH 28.7 MCHC 32.8 L RDW 13.8 Plt Count 196 MPV 11.0 Neut % (Auto) 84.1 H Lymph % (Auto) 5.6 L [place] % (Auto) 9.3 Eos % (Auto) 0.3 Baso % (Auto) 0.7 Neut # (Auto) 10.0 H Lymph # (Auto) 0.7 L [place] # (Auto) 1.1 H Eos # (Auto) 0.0 Baso # (Auto) 0.1 Neutrophils % (Manual) Lymphocytes % (Manual) Monocytes % (Manual) Platelet Estimate PT INR APTT Puncture Site pCO2 pO2 HCO3 ABG pH ABG Total CO2 ABG O2 Saturation ABG Base Excess ABG Hemoglobin ABG Carboxyhemoglobin POC ABG HHb (Measured) ABG Methemoglobin Flaco Test ABG Potassium A-a O2 Difference Respiratory Index Hgb O2 Saturation Glucose Lactate Vent Mode Mechanical Rate FiO2 Tidal Volume PEEP Sodium Potassium Chloride Carbon Dioxide Anion Gap BUN Creatinine Est GFR ( Amer) Est GFR (Non-Af Amer) Random Glucose Hemoglobin A1c Calcium Total Bilirubin AST ALT Alkaline Phosphatase Troponin I NT-Pro-B Natriuret Pep Total Protein Albumin Globulin Albumin/Globulin Ratio Triglycerides Cholesterol LDL Cholesterol Direct HDL Cholesterol Lipase Arterial Blood Potassium Urine Color Urine Clarity Urine pH Ur Specific [place] Urine Protein Urine Glucose (UA) Urine Ketones Urine Blood Urine Nitrate Urine Bilirubin Urine Urobilinogen Ur Leukocyte Esterase Urine WBC (Auto) Urine RBC (Auto) Ur Squamous Epith Cells Urine Bacteria Urine Opiates Screen Urine Methadone Screen Ur Barbiturates Screen Ur Phencyclidine Scrn Ur Amphetamines Screen U Benzodiazepines Scrn U Oth Cocaine Metabols U Cannabinoids Screen Blood Type Antibody Screen Assessment & Plan - Date & Time Date: 07/22/18 (I have seen and examined the patient. I agree with the findings and plan of care as documented by Dr. An. Patient with respiratory failure. Intubated. Likely aspirated. Doxy and Zosyn for now. Renal insufficiency. IVF and continue to monitor renal function. Admit to ICU for further management. Monitor for acute changes.) Time: 06:27 Attending/Attestation - Attestation I have personally seen and examined this patient.: Yes I have fully participated in the care of the patient.: Yes I have reviewed all pertinent clinical information: Yes
--- NOTE | 2018-07-22 00:01 | CP.PCM.CON ---
History of Present Illness - History of Present Illness History of Present Illness: Patient is a 52 year old male with a past medical history of hypertension, diabetes (b/l BKA 2/2 uncontrolled diabetes) and hx cellulitis with erosion into the nasal cartilage of the face, was last seen by the around 3pm, then when she came back home around 6:30 pm, saw him not responding, gurgling in the breathing. Patient was intubated by EMS, paralytics were used during intubation, details and dosages not available. In ER patient was unresponsive, no movements, not breathing over vent, no corneal, conjunctival or pupilary reflex. Labs showing elevated wbc, creatinine. In ER was loaded with keppra, in suspicion of initial event would have been seizure. Train of 4 tested in ICU with no movement suggesting effect of paralytics rather anoxia. PMH: hypertension, diabetes and hx cellulitis with erosion into the nasal ca rtilage of the face (for 1 year) PSH: b/l BKA 2/2 uncontrolled diabetes Social: Denies tobacco, alcohol or illicit drug use. Allergies: NKDA Meds: Reviewed need to be confirmed Review of Systems - Review of Systems Systems not reviewed;Unavailable: Intubated All systems: reviewed and no additional remarkable complaints except (HPI) Past Patient History - Infectious Disease Hx of Infectious Diseases: None - Past Medical History & Family History Past Medical History?: Yes - Past Social History Smoking Status: Former Smoker Alcohol: None Home Situation {Lives}: With Family Domestic Violence: Negative - CARDIAC Hx Hypertension: Yes - PULMONARY Hx Respiratory Disorders: No - NEUROLOGICAL Hx Neurological Disorder: No - HEENT Hx HEENT Problems: No - RENAL Hx Chronic Kidney Disease: No - ENDOCRINE/METABOLIC Hx Diabetes Mellitus Type 1: Yes Hx Diabetes Mellitus Type 2: Yes - HEMATOLOGICAL/ONCOLOGICAL Hx Anemia: Yes Hx Human Immunodeficiency Virus (HIV): No - INTEGUMENTARY Hx Dermatological Problems: Yes Hx Cellulitis: Yes Other/Comment: Ulcer right foot - MUSCULOSKELETAL/RHEUMATOLOGICAL Hx Musculoskeletal Disorders: Yes (SEE COMMENT) Hx Falls: No Hx Osteomyelitis: Yes Other/Comment: BILATERAL BK-AMPUTATIONS - GASTROINTESTINAL Hx Gastrointestinal Disorders: No - GENITOURINARY/GYNECOLOGICAL Hx Genitourinary Disorders: No - PSYCHIATRIC Hx Depression: Yes Hx Substance Use: No - SURGICAL HISTORY Hx Surgeries: Yes Hx Amputation: Yes (Bilateral BKA) - ANESTHESIA Hx Anesthesia: Yes Hx Anesthesia Reactions: No Hx Malignant Hyperthermia: No Meds Allergies/Adverse Reactions: Allergies Allergy/AdvReac Type Severity Reaction Status Date / Time No Known Allergies Allergy Verified 07/21/18 20:06 - Medications Medications: Current Medications Levetiracetam 1,000 mg/ (Dextrose) 110 mls @ 420 mls/hr IVPB Q12H JASPREET Last Admin: 07/21/18 22:13 Dose: 420 mls/hr Physical Exam - Additional Findings Additional findings: * HEENT Intubated, no movements * Neck supple * Chest Clear * CVS regular, tachycardia * PA soft, * Ext b/l BKA * Skin normal turgor * 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 Results - Vital Signs Recent Vital Signs: Last Vital Signs Temp 98.5 F 07/21/18 21:05 Pulse 97 H 07/21/18 23:00 Resp 16 07/21/18 23:00 BP 171/79 H 07/21/18 22:57 Pulse Ox 100 07/21/18 22:46 - Labs Result Diagrams: 07/21/18 20:28 07/21/18 20:28 Labs: Laboratory Results - last 24 hr 07/21/18 07/21/18 07/21/18 20:28 20:28 20:28 WBC 19.0 H D RBC 3.44 L Hgb 10.0 L Hct 29.4 L MCV 85.5 MCH 29.0 MCHC 33.9 RDW 13.7 Plt Count 232 MPV 10.3 Neut % (Auto) 83.5 H Lymph % (Auto) 6.3 L [place] % (Auto) 9.9 Eos % (Auto) 0.0 Baso % (Auto) 0.3 Neut # (Auto) 15.8 H Lymph # (Auto) 1.2 [place] # (Auto) 1.9 H Eos # (Auto) 0.0 Baso # (Auto) 0.1 Neutrophils % (Manual) 93 H Lymphocytes % (Manual) 4 L Monocytes % (Manual) 3 Platelet Estimate Normal PT 15.6 H INR 1.4 APTT 34 Puncture Site pCO2 pO2 HCO3 ABG pH ABG Total CO2 ABG O2 Saturation ABG Base Excess Flaco Test ABG Potassium A-a O2 Difference Respiratory Index Glucose Lactate FiO2 Sodium 130 L Potassium 3.3 L Chloride 95 L Carbon Dioxide 20 L Anion Gap 18 BUN 43 H Creatinine 1.8 H Est GFR ( Amer) 48 Est GFR (Non-Af Amer) 40 Random Glucose 95 Hemoglobin A1c Calcium 7.9 L Total Bilirubin 0.5 AST 56 ALT 35 Alkaline Phosphatase 178 H D Troponin I < 0.0120 NT-Pro-B Natriuret Pep 216 Total Protein 7.0 Albumin 3.2 L Globulin 3.9 Albumin/Globulin Ratio 0.8 L Triglycerides 263 H Cholesterol 121 LDL Cholesterol Direct 42 HDL Cholesterol 15 L Lipase 32 Arterial Blood Potassium Urine Color Urine Clarity Urine pH Ur Specific [place] Urine Protein Urine Glucose (UA) Urine Ketones Urine Blood Urine Nitrate Urine Bilirubin Urine Urobilinogen Ur Leukocyte Esterase Urine WBC (Auto) Urine RBC (Auto) Ur Squamous Epith Cells Urine Bacteria Urine Opiates Screen Urine Methadone Screen Ur Barbiturates Screen Ur Phencyclidine Scrn Ur Amphetamines Screen U Benzodiazepines Scrn U Oth Cocaine Metabols U Cannabinoids Screen Blood Type Antibody Screen 07/21/18 07/21/18 07/21/18 20:30 20:31 20:31 WBC RBC Hgb Hct MCV MCH MCHC RDW Plt Count MPV Neut % (Auto) Lymph % (Auto) [place] % (Auto) Eos % (Auto) Baso % (Auto) Neut # (Auto) Lymph # (Auto) [place] # (Auto) Eos # (Auto) Baso # (Auto) Neutrophils % (Manual) Lymphocytes % (Manual) Monocytes % (Manual) Platelet Estimate PT INR APTT Puncture Site Rba pCO2 38 pO2 305 H HCO3 18.6 L ABG pH 7.28 L ABG Total CO2 19.1 L ABG O2 Saturation 95.7 ABG Base Excess -8.2 L Flaco Test Pos ABG Potassium 2.9 L A-a O2 Difference 218.0 Respiratory Index 0.7 Glucose 90 Lactate 0.8 FiO2 80.0 Sodium 128.0 L Potassium Chloride 100.0 Carbon Dioxide Anion Gap BUN Creatinine Est GFR ( Amer) Est GFR (Non-Af Amer) Random Glucose Hemoglobin A1c 8.9 H Calcium Total Bilirubin AST ALT Alkaline Phosphatase Troponin I NT-Pro-B Natriuret Pep Total Protein Albumin Globulin Albumin/Globulin Ratio Triglycerides Cholesterol LDL Cholesterol Direct HDL Cholesterol Lipase Arterial Blood Potassium 2.9 L Urine Color [place] Urine Clarity Hazy Urine pH 5.0 Ur Specific [place] 1.016 Urine Protein 2+ H Urine Glucose (UA) Normal Urine Ketones Negative Urine Blood 2+ H Urine Nitrate Negative Urine Bilirubin Negative Urine Urobilinogen Normal Ur Leukocyte Esterase Trace Urine WBC (Auto) 340 H Urine RBC (Auto) 6 H Ur Squamous Epith Cells 1 Urine Bacteria Many H Urine Opiates Screen Urine Methadone Screen Ur Barbiturates Screen Ur Phencyclidine Scrn Ur Amphetamines Screen U Benzodiazepines Scrn U Oth Cocaine Metabols U Cannabinoids Screen Blood Type Antibody Screen 07/21/18 07/21/18 21:25 22:03 WBC RBC Hgb Hct MCV MCH MCHC RDW Plt Count MPV Neut % (Auto) Lymph % (Auto) [place] % (Auto) Eos % (Auto) Baso % (Auto) Neut # (Auto) Lymph # (Auto) [place] # (Auto) Eos # (Auto) Baso # (Auto) Neutrophils % (Manual) Lymphocytes % (Manual) Monocytes % (Manual) Platelet Estimate PT INR APTT Puncture Site pCO2 pO2 HCO3 ABG pH ABG Total CO2 ABG O2 Saturation ABG Base Excess Flaco Test ABG Potassium A-a O2 Difference Respiratory Index Glucose Lactate FiO2 Sodium Potassium Chloride Carbon Dioxide Anion Gap BUN Creatinine Est GFR ( Amer) Est GFR (Non-Af Amer) Random Glucose Hemoglobin A1c Calcium Total Bilirubin AST ALT Alkaline Phosphatase Troponin I NT-Pro-B Natriuret Pep Total Protein Albumin Globulin Albumin/Globulin Ratio Triglycerides Cholesterol LDL Cholesterol Direct HDL Cholesterol Lipase Arterial Blood Potassium Urine Color Urine Clarity Urine pH Ur Specific [place] Urine Protein Urine Glucose (UA) Urine Ketones Urine Blood Urine Nitrate Urine Bilirubin Urine Urobilinogen Ur Leukocyte Esterase Urine WBC (Auto) Urine RBC (Auto) Ur Squamous Epith Cells Urine Bacteria Urine Opiates Screen Negative Urine Methadone Screen Negative Ur Barbiturates Screen Negative Ur Phencyclidine Scrn Negative Ur Amphetamines Screen Negative U Benzodiazepines Scrn Negative U Oth Cocaine Metabols Negative U Cannabinoids Screen Negative Blood Type O POSITIVE Antibody Screen Negative Assessment & Plan - Assessment and Plan (Free Text) Assessment: * Unresponsiveness, respiratory distress, with no significant hypoxia on ABG suspicious for seizure * leucocytosis * Renal insufficiency * Suspected aspiration * NIDDM * 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
[2018-07-22] MEDS ORDERED: Glucagon Recombinant 1 mg Inj IM PRN (00:04)
[2018-07-22] MEDS ORDERED: Dextrose 50% SYRINGE Inj (50 ml) IV PRN (00:04)
[2018-07-22] MEDS: (Novolin R) Insulin Human Regular 100 units/ml vial SC SCH ×4 (00:45→18:00)
[2018-07-22] MEDS: Dexmedetomidine Hydrochloride 200 MCG in Sodium Chloride 0.9% 48 ML IV PRN ×3 (00:46→07:53)
[2018-07-22] MEDS: Piperacill/Tazo 2.25gm in Dex 2.25 GM/50 ML BAG IVPB SCH ×4 (03:42→23:00)
[2018-07-22 06:18] LABS: ABG ALLEN TEST POS; ARTERIAL BLOOD GAS HCO3 20.6 mmol/L (21-28); ARTERIAL BLOOD GAS O2 SAT 95.9 % (95-98); ARTERIAL BLOOD GAS PCO2 28 mm/Hg (35-45); ARTERIAL BLOOD GAS PH 7.42 (7.35-7.45); ARTERIAL BLOOD GAS PO2 183 mm/Hg (80-100); ARTERIAL BLOOD GAS TCO2 19.1 mmol/L (22-28)
[2018-07-22 06:21] LABS: BASO # 0.1 K/uL (0.0-0.2); BASO % 0.7 % (0.0-2.0); EOS % 0.3 % (0.0-4.0); HEMOGLOBIN 8.4 g/dL (12.0-18.0); LYMPH # 0.7 K/uL (1.0-4.3); LYMPH % 5.6 % (20.0-40.0); MEAN CELL VOLUME 87.3 fL (80.0-94.0); MEAN CORPUSCULAR HEMOGLOBIN 28.7 pg (27.0-31.0); MEAN CORPUSCULAR HGB CONC 32.8 g/dL (33.0-37.0); MONO # 1.1 K/uL (0.0-0.8); MONO % 9.3 % (0.0-10.0); NEUT % 84.1 % (50.0-75.0); NRBC % 0.1 % (0.0-2.0); PLATELET COUNT 196 K/uL (130-400); RBC 2.91 Mil/uL (4.40-5.90); RED CELL DISTRIBUTION WIDTH 13.8 % (11.5-14.5); WHITE BLOOD COUNT 11.9 K/uL (4.8-10.8)
[2018-07-22 06:37] LABS: ALB/GLOB RATIO 0.8 (1.0-2.1); ALBUMIN 2.5 g/dL (3.5-5.0); CALCIUM 7.1 mg/dl (8.6-10.4)
--- NOTE | 2018-07-22 08:03 | CP.CCUPN ---
<Nan Osman - Last Filed: 07/22/18 12:19> CCU Subjective - Physician Review Events Since Last Encounter (Free Text): 07/22/18 08:03 No events reported since admission over night. Subjective (Free Text): 07/22/18 08:03 Patient was seen and examined this morning. He is presently intubated on a CPAP trial. Patient is awake and alert. He is moving his arms. ROS unable to be obtained. 07/22/18 12:19 Patient successfully extubated at 11:40 AM. Critical Care Time Spent (in minutes): 35 CCU Objective - Vital Signs / Intake & Output Vital Signs (Last 4 hours): Vital Signs Pulse Resp BP Pulse Ox 07/22/18 07:00 95 H 16 07/22/18 06:46 79 22 112/61 100 07/22/18 06:00 81 19 100 07/22/18 05:46 82 20 116/65 100 07/22/18 05:00 74 17 100 07/22/18 04:46 75 21 108/60 100 Intake and Output (Last 8hrs): Intake & Output 07/21/18 07/22/18 07/22/18 22:59 06:59 14:59 Intake Total 1300 299.5 12.8 Output Total 400 400 Balance 900 -100.5 12.8 Weight 209 lb 7.026 oz 188 lb 9.6 oz Intake: IV 1300 90 8 Intake, IV Amount 209.5 4.8 Right Forearm 59.5 4.8 Right Wrist 150 Output: Urine 400 400 Urethral (Jin) 400 Other: Voiding Method Indwelling Catheter - Physical Exam Physical Exam Limitations: Positive for: Altered Mental Status Head: Positive for: Atraumatic, Normocephalic Pupils: Positive for: PERRL Extroacular Muscles: Positive for: EOMI Conjunctiva: Positive for: Normal Mouth: Positive for: Moist Mucous Membranes Nose (External): Positive for: Lesions (L nasal cartilage erosion, no acute ) Respiratory/Chest: Positive for: Clear to Auscultation, Good Air Exchange. Negative for: Respiratory Distress, Accessory Muscle Use Cardiovascular: Positive for: Regular Rate and Rhythm ( ) Abdomen: Positive for: Normal Bowel Sounds. Negative for: Tenderness, Distention Upper Extremity: Positive for: Normal Inspection Lower Extremity: Positive for: Normal Inspection Neurological: Positive for: GCS=15, CN II-XII Intact Skin: Positive for: Warm, Dry, Normal Color Psychiatric: Positive for: Alert - Medications Active Medications: Active Medications Generic Name Dose Route Start Last Admin Trade Name Freq PRN Reason Stop Dose Admin Dextrose 0 ml 07/22/18 00:04 Dextrose 50% Inj IV STAT PRN Hypoglycemia Protocol Protocol Dextrose 0 gm 07/22/18 00:04 Glutose 15 PO ONCE PRN Hypoglycemia Protocol Protocol Glucagon 0 mg 07/22/18 00:04 Glucagen Diagnostic Kit IM STAT PRN Hypoglycemia Protocol Protocol Heparin Sodium (Porcine) 5,000 units 07/22/18 10:00 Heparin SC Q12 JASPREET Levetiracetam 1,000 mg/ 110 mls @ 420 mls/hr 07/21/18 21:45 07/21/18 22:13 Dextrose IVPB 420 mls/hr Q12H JASPREET Administration Dextrose 1,000 mls @ 0 mls/hr 07/22/18 00:04 Dextrose 5% In Water 1000 Ml IV .Q0M PRN Hypoglycemia Protocol Protocol Per Protocol Doxycycline Hyclate 100 mg/ 100 mls @ 100 mls/hr 07/22/18 00:15 07/22/18 00:46 Sodium Chloride IVPB 100 mls/hr Q12H JASPREET Administration Protocol Piperacillin Sod/Tazobactam Sod 2.25 gm in 50 mls @ 100 mls/hr 07/22/18 04:00 07/22/18 03:42 Zosyn 2.25 Gm Iv Premix IVPB 100 mls/hr Q6H JASPREET Administration Protocol Dexmedetomidine HCl 200 mcg/ 50 mls @ 4.75 mls/hr 07/22/18 00:08 07/22/18 07:53 Sodium Chloride IV 0.5 mcg/kg/hr TITR PRN 11.88 mls/hr Sedation Administration Protocol 0.2 MCG/KG/HR Potassium Chloride 20 meq in 100 mls @ 50 mls/hr 07/22/18 08:00 Potassium Chloride 20 Meq/100 Ml IVPB 07/22/18 11:59 Q2 JASPREET Insulin Human Regular 0 unit 07/22/18 00:15 07/22/18 05:28 Novolin R SC Not Given Q6H JASPREET Protocol Pantoprazole Sodium 40 mg 07/22/18 10:00 Protonix Inj IVP DAILY JASPREET - Patient Studies Lab Studies: Lab Studies 07/22/18 07/22/18 07/22/18 Range/Units 05:56 05:56 05:46 WBC 11.9 H (4.8-10.8) K/uL RBC 2.91 L (4.40-5.90) Mil/uL Hgb 8.4 L (12.0-18.0) g/dL Hct 25.4 L (35.0-51.0) % MCV 87.3 (80.0-94.0) fL MCH 28.7 (27.0-31.0) pg MCHC 32.8 L (33.0-37.0) g/dL RDW 13.8 (11.5-14.5) % Plt Count 196 (130-400) K/uL MPV 11.0 (7.2-11.7) fL Neut % (Auto) 84.1 H (50.0-75.0) % Lymph % (Auto) 5.6 L (20.0-40.0) % [place] % (Auto) 9.3 (0.0-10.0) % Eos % (Auto) 0.3 (0.0-4.0) % Baso % (Auto) 0.7 (0.0-2.0) % Neut # (Auto) 10.0 H (1.8-7.0) K/uL Lymph # (Auto) 0.7 L (1.0-4.3) K/uL [place] # (Auto) 1.1 H (0.0-0.8) K/uL Eos # (Auto) 0.0 (0.0-0.7) K/uL Baso # (Auto) 0.1 (0.0-0.2) K/uL Neutrophils % (Manual) (50-75) % Lymphocytes % (Manual) (20-40) % Monocytes % (Manual) (0-10) % Platelet Estimate (NORMAL) PT (9.7-12.2) SECONDS INR APTT (21-34) SECONDS Puncture Site L rad pCO2 28 L (35-45) mm/Hg pO2 183 H (80-100) mm/Hg HCO3 20.6 L (21-28) mmol/L ABG pH 7.42 (7.35-7.45) ABG Total CO2 19.1 L (22-28) mmol/L ABG O2 Saturation 95.9 (95-98) % ABG Base Excess -5.5 L (-2.0-3.0) mmol/L ABG Hemoglobin 8.0 L (11.7-17.4) g/dL ABG Carboxyhemoglobin 0 L (0.5-1.5) % POC ABG HHb (Measured) 4.1 (0.0-5.0) % ABG Methemoglobin 0.0 (0.0-3.0) % Flaco Test Pos ABG Potassium (3.6-5.2) mmol/L A-a O2 Difference 67.0 mm/Hg Respiratory Index 0.4 Hgb O2 Saturation 95.9 (95.0-98.0) % Glucose (75-110) mg/dl Lactate (0.7-2.1) mmol/L Vent Mode Prvc Mechanical Rate 16 FiO2 40.0 % Tidal Volume 500 PEEP 5 Sodium 131 L (132-148) mmol/L Potassium 3.5 L (3.6-5.2) mmol/L Chloride 102 (98-107) mmol/L Carbon Dioxide 17 L (22-30) mmol/L Anion Gap 15 (10-20) BUN 45 H (9-20) mg/dL Creatinine 1.6 H (0.8-1.5) mg/dL Est GFR ( Amer) 55 Est GFR (Non-Af Amer) 45 Random Glucose 97 (75-110) mg/dL Hemoglobin A1c (4.2-6.5) % Calcium 7.1 L (8.6-10.4) mg/dl Phosphorus 5.0 H (2.5-4.5) mg/dL Magnesium 2.1 (1.6-2.3) mg/dL Total Bilirubin 0.3 (0.2-1.3) mg/dL AST 43 (17-59) U/L ALT 32 (21-72) U/L Alkaline Phosphatase 136 H D (38-126) U/L Troponin I (0.00-0.120) ng/mL NT-Pro-B Natriuret Pep (0-900) pg/mL Total Protein 5.6 L (6.3-8.3) g/dL Albumin 2.5 L D (3.5-5.0) g/dL Globulin 3.1 (2.2-3.9) gm/dL Albumin/Globulin Ratio 0.8 L (1.0-2.1) Triglycerides (0-149) mg/dL Cholesterol (0-199) mg/dL LDL Cholesterol Direct (0-129) mg/dL HDL Cholesterol (30-70) mg/dL Lipase (23-300) U/L Arterial Blood Potassium (3.6-5.2) mmol/L Urine Color (YELLOW) Urine Clarity (Clear) Urine pH (5.0-8.0) Ur Specific [place] (1.003-1.030) Urine Protein (NEGATIVE) mg/dL Urine Glucose (UA) (Normal) mg/dL Urine Ketones (NEGATIVE) mg/dL Urine Blood (NEGATIVE) Urine Nitrate (NEGATIVE) Urine Bilirubin (NEGATIVE) Urine Urobilinogen (0.2-1.0) mg/dL Ur Leukocyte Esterase (Negative) Jana/uL Urine WBC (Auto) (0-5) /hpf Urine RBC (Auto) (0-3) /hpf Ur Squamous Epith Cells (0-5) /hpf Urine Bacteria (<OCC) Urine Opiates Screen (NEGATIVE) Urine Methadone Screen (NEGATIVE) Ur Barbiturates Screen (NEGATIVE) Ur Phencyclidine Scrn (NEGATIVE) Ur Amphetamines Screen (NEGATIVE) U Benzodiazepines Scrn (NEGATIVE) U Oth Cocaine Metabols (NEGATIVE) U Cannabinoids Screen (NEGATIVE) Blood Type Antibody Screen 07/21/18 07/21/18 07/21/18 Range/Units 22:03 21:25 20:31 WBC (4.8-10.8) K/uL RBC (4.40-5.90) Mil/uL Hgb (12.0-18.0) g/dL Hct (35.0-51.0) % MCV (80.0-94.0) fL MCH (27.0-31.0) pg MCHC (33.0-37.0) g/dL RDW (11.5-14.5) % Plt Count (130-400) K/uL MPV (7.2-11.7) fL Neut % (Auto) (50.0-75.0) % Lymph % (Auto) (20.0-40.0) % [place] % (Auto) (0.0-10.0) % Eos % (Auto) (0.0-4.0) % Baso % (Auto) (0.0-2.0) % Neut # (Auto) (1.8-7.0) K/uL Lymph # (Auto) (1.0-4.3) K/uL [place] # (Auto) (0.0-0.8) K/uL Eos # (Auto) (0.0-0.7) K/uL Baso # (Auto) (0.0-0.2) K/uL Neutrophils % (Manual) (50-75) % Lymphocytes % (Manual) (20-40) % Monocytes % (Manual) (0-10) % Platelet Estimate (NORMAL) PT (9.7-12.2) SECONDS INR APTT (21-34) SECONDS Puncture Site pCO2 (35-45) mm/Hg pO2 (80-100) mm/Hg HCO3 (21-28) mmol/L ABG pH (7.35-7.45) ABG Total CO2 (22-28) mmol/L ABG O2 Saturation (95-98) % ABG Base Excess (-2.0-3.0) mmol/L ABG Hemoglobin (11.7-17.4) g/dL ABG Carboxyhemoglobin (0.5-1.5) % POC ABG HHb (Measured) (0.0-5.0) % ABG Methemoglobin (0.0-3.0) % Flaco Test ABG Potassium (3.6-5.2) mmol/L A-a O2 Difference mm/Hg Respiratory Index Hgb O2 Saturation (95.0-98.0) % Glucose (75-110) mg/dl Lactate (0.7-2.1) mmol/L Vent Mode Mechanical Rate FiO2 % Tidal Volume PEEP Sodium (132-148) mmol/L Potassium (3.6-5.2) mmol/L Chloride (98-107) mmol/L Carbon Dioxide (22-30) mmol/L Anion Gap (10-20) BUN (9-20) mg/dL Creatinine (0.8-1.5) mg/dL Est GFR ( Amer) Est GFR (Non-Af Amer) Random Glucose (75-110) mg/dL Hemoglobin A1c 8.9 H (4.2-6.5) % Calcium (8.6-10.4) mg/dl Phosphorus (2.5-4.5) mg/dL Magnesium (1.6-2.3) mg/dL Total Bilirubin (0.2-1.3) mg/dL AST (17-59) U/L ALT (21-72) U/L Alkaline Phosphatase (38-126) U/L Troponin I (0.00-0.120) ng/mL NT-Pro-B Natriuret Pep (0-900) pg/mL Total Protein (6.3-8.3) g/dL Albumin (3.5-5.0) g/dL Globulin (2.2-3.9) gm/dL Albumin/Globulin Ratio (1.0-2.1) Triglycerides (0-149) mg/dL Cholesterol (0-199) mg/dL LDL Cholesterol Direct (0-129) mg/dL HDL Cholesterol (30-70) mg/dL Lipase (23-300) U/L Arterial Blood Potassium (3.6-5.2) mmol/L Urine Color (YELLOW) Urine Clarity (Clear) Urine pH (5.0-8.0) Ur Specific [place] (1.003-1.030) Urine Protein (NEGATIVE) mg/dL Urine Glucose (UA) (Normal) mg/dL Urine Ketones (NEGATIVE) mg/dL Urine Blood (NEGATIVE) Urine Nitrate (NEGATIVE) Urine Bilirubin (NEGATIVE) Urine Urobilinogen (0.2-1.0) mg/dL Ur Leukocyte Esterase (Negative) Jana/uL Urine WBC (Auto) (0-5) /hpf Urine RBC (Auto) (0-3) /hpf Ur Squamous Epith Cells (0-5) /hpf Urine Bacteria (<OCC) Urine Opiates Screen Negative (NEGATIVE) Urine Methadone Screen Negative (NEGATIVE) Ur Barbiturates Screen Negative (NEGATIVE) Ur Phencyclidine Scrn Negative (NEGATIVE) Ur Amphetamines Screen Negative (NEGATIVE) U Benzodiazepines Scrn Negative (NEGATIVE) U Oth Cocaine Metabols Negative (NEGATIVE) U Cannabinoids Screen Negative (NEGATIVE) Blood Type O POSITIVE Antibody Screen Negative 07/21/18 07/21/18 07/21/18 Range/Units 20:31 20:30 20:28 WBC (4.8-10.8) K/uL RBC (4.40-5.90) Mil/uL Hgb (12.0-18.0) g/dL Hct (35.0-51.0) % MCV (80.0-94.0) fL MCH (27.0-31.0) pg MCHC (33.0-37.0) g/dL RDW (11.5-14.5) % Plt Count (130-400) K/uL MPV (7.2-11.7) fL Neut % (Auto) (50.0-75.0) % Lymph % (Auto) (20.0-40.0) % [place] % (Auto) (0.0-10.0) % Eos % (Auto) (0.0-4.0) % Baso % (Auto) (0.0-2.0) % Neut # (Auto) (1.8-7.0) K/uL Lymph # (Auto) (1.0-4.3) K/uL [place] # (Auto) (0.0-0.8) K/uL Eos # (Auto) (0.0-0.7) K/uL Baso # (Auto) (0.0-0.2) K/uL Neutrophils % (Manual) (50-75) % Lymphocytes % (Manual) (20-40) % Monocytes % (Manual) (0-10) % Platelet Estimate (NORMAL) PT (9.7-12.2) SECONDS INR APTT (21-34) SECONDS Puncture Site Rba pCO2 38 (35-45) mm/Hg pO2 305 H (80-100) mm/Hg HCO3 18.6 L (21-28) mmol/L ABG pH 7.28 L (7.35-7.45) ABG Total CO2 19.1 L (22-28) mmol/L ABG O2 Saturation 95.7 (95-98) % ABG Base Excess -8.2 L (-2.0-3.0) mmol/L ABG Hemoglobin (11.7-17.4) g/dL ABG Carboxyhemoglobin (0.5-1.5) % POC ABG HHb (Measured) (0.0-5.0) % ABG Methemoglobin (0.0-3.0) % Flaco Test Pos ABG Potassium 2.9 L (3.6-5.2) mmol/L A-a O2 Difference 218.0 mm/Hg Respiratory Index 0.7 Hgb O2 Saturation (95.0-98.0) % Glucose 90 (75-110) mg/dl Lactate 0.8 (0.7-2.1) mmol/L Vent Mode Mechanical Rate FiO2 80.0 % Tidal Volume PEEP Sodium 128.0 L 130 L (132-148) mmol/L Potassium 3.3 L (3.6-5.2) mmol/L Chloride 100.0 95 L (98-107) mmol/L Carbon Dioxide 20 L (22-30) mmol/L Anion Gap 18 (10-20) BUN 43 H (9-20) mg/dL Creatinine 1.8 H (0.8-1.5) mg/dL Est GFR ( Amer) 48 Est GFR (Non-Af Amer) 40 Random Glucose 95 (75-110) mg/dL Hemoglobin A1c (4.2-6.5) % Calcium 7.9 L (8.6-10.4) mg/dl Phosphorus (2.5-4.5) mg/dL Magnesium (1.6-2.3) mg/dL Total Bilirubin 0.5 (0.2-1.3) mg/dL AST 56 (17-59) U/L ALT 35 (21-72) U/L Alkaline Phosphatase 178 H D (38-126) U/L Troponin I < 0.0120 (0.00-0.120) ng/mL NT-Pro-B Natriuret Pep 216 (0-900) pg/mL Total Protein 7.0 (6.3-8.3) g/dL Albumin 3.2 L (3.5-5.0) g/dL Globulin 3.9 (2.2-3.9) gm/dL Albumin/Globulin Ratio 0.8 L (1.0-2.1) Triglycerides 263 H (0-149) mg/dL Cholesterol 121 (0-199) mg/dL LDL Cholesterol Direct 42 (0-129) mg/dL HDL Cholesterol 15 L (30-70) mg/dL Lipase 32 (23-300) U/L Arterial Blood Potassium 2.9 L (3.6-5.2) mmol/L Urine Color [place] (YELLOW) Urine Clarity Hazy (Clear) Urine pH 5.0 (5.0-8.0) Ur Specific [place] 1.016 (1.003-1.030) Urine Protein 2+ H (NEGATIVE) mg/dL Urine Glucose (UA) Normal (Normal) mg/dL Urine Ketones Negative (NEGATIVE) mg/dL Urine Blood 2+ H (NEGATIVE) Urine Nitrate Negative (NEGATIVE) Urine Bilirubin Negative (NEGATIVE) Urine Urobilinogen Normal (0.2-1.0) mg/dL Ur Leukocyte Esterase Trace (Negative) Jana/uL Urine WBC (Auto) 340 H (0-5) /hpf Urine RBC (Auto) 6 H (0-3) /hpf Ur Squamous Epith Cells 1 (0-5) /hpf Urine Bacteria Many H (<OCC) Urine Opiates Screen (NEGATIVE) Urine Methadone Screen (NEGATIVE) Ur Barbiturates Screen (NEGATIVE) Ur Phencyclidine Scrn (NEGATIVE) Ur Amphetamines Screen (NEGATIVE) U Benzodiazepines Scrn (NEGATIVE) U Oth Cocaine Metabols (NEGATIVE) U Cannabinoids Screen (NEGATIVE) Blood Type Antibody Screen 07/21/18 07/21/18 Range/Units 20:28 20:28 WBC 19.0 H D (4.8-10.8) K/uL RBC 3.44 L (4.40-5.90) Mil/uL Hgb 10.0 L (12.0-18.0) g/dL Hct 29.4 L (35.0-51.0) % MCV 85.5 (80.0-94.0) fL MCH 29.0 (27.0-31.0) pg MCHC 33.9 (33.0-37.0) g/dL RDW 13.7 (11.5-14.5) % Plt Count 232 (130-400) K/uL MPV 10.3 (7.2-11.7) fL Neut % (Auto) 83.5 H (50.0-75.0) % Lymph % (Auto) 6.3 L (20.0-40.0) % [place] % (Auto) 9.9 (0.0-10.0) % Eos % (Auto) 0.0 (0.0-4.0) % Baso % (Auto) 0.3 (0.0-2.0) % Neut # (Auto) 15.8 H (1.8-7.0) K/uL Lymph # (Auto) 1.2 (1.0-4.3) K/uL [place] # (Auto) 1.9 H (0.0-0.8) K/uL Eos # (Auto) 0.0 (0.0-0.7) K/uL Baso # (Auto) 0.1 (0.0-0.2) K/uL Neutrophils % (Manual) 93 H (50-75) % Lymphocytes % (Manual) 4 L (20-40) % Monocytes % (Manual) 3 (0-10) % Platelet Estimate Normal (NORMAL) PT 15.6 H (9.7-12.2) SECONDS INR 1.4 APTT 34 (21-34) SECONDS Puncture Site pCO2 (35-45) mm/Hg pO2 (80-100) mm/Hg HCO3 (21-28) mmol/L ABG pH (7.35-7.45) ABG Total CO2 (22-28) mmol/L ABG O2 Saturation (95-98) % ABG Base Excess (-2.0-3.0) mmol/L ABG Hemoglobin (11.7-17.4) g/dL ABG Carboxyhemoglobin (0.5-1.5) % POC ABG HHb (Measured) (0.0-5.0) % ABG Methemoglobin (0.0-3.0) % Flaco Test ABG Potassium (3.6-5.2) mmol/L A-a O2 Difference mm/Hg Respiratory Index Hgb O2 Saturation (95.0-98.0) % Glucose (75-110) mg/dl Lactate (0.7-2.1) mmol/L Vent Mode Mechanical Rate FiO2 % Tidal Volume PEEP Sodium (132-148) mmol/L Potassium (3.6-5.2) mmol/L Chloride (98-107) mmol/L Carbon Dioxide (22-30) mmol/L Anion Gap (10-20) BUN (9-20) mg/dL Creatinine (0.8-1.5) mg/dL Est GFR ( Amer) Est GFR (Non-Af Amer) Random Glucose (75-110) mg/dL Hemoglobin A1c (4.2-6.5) % Calcium (8.6-10.4) mg/dl Phosphorus (2.5-4.5) mg/dL Magnesium (1.6-2.3) mg/dL Total Bilirubin (0.2-1.3) mg/dL AST (17-59) U/L ALT (21-72) U/L Alkaline Phosphatase (38-126) U/L Troponin I (0.00-0.120) ng/mL NT-Pro-B Natriuret Pep (0-900) pg/mL Total Protein (6.3-8.3) g/dL Albumin (3.5-5.0) g/dL Globulin (2.2-3.9) gm/dL Albumin/Globulin Ratio (1.0-2.1) Triglycerides (0-149) mg/dL Cholesterol (0-199) mg/dL LDL Cholesterol Direct (0-129) mg/dL HDL Cholesterol (30-70) mg/dL Lipase (23-300) U/L Arterial Blood Potassium (3.6-5.2) mmol/L Urine Color (YELLOW) Urine Clarity (Clear) Urine pH (5.0-8.0) Ur Specific [place] (1.003-1.030) Urine Protein (NEGATIVE) mg/dL Urine Glucose (UA) (Normal) mg/dL Urine Ketones (NEGATIVE) mg/dL Urine Blood (NEGATIVE) Urine Nitrate (NEGATIVE) Urine Bilirubin (NEGATIVE) Urine Urobilinogen (0.2-1.0) mg/dL Ur Leukocyte Esterase (Negative) Jana/uL Urine WBC (Auto) (0-5) /hpf Urine RBC (Auto) (0-3) /hpf Ur Squamous Epith Cells (0-5) /hpf Urine Bacteria (<OCC) Urine Opiates Screen (NEGATIVE) Urine Methadone Screen (NEGATIVE) Ur Barbiturates Screen (NEGATIVE) Ur Phencyclidine Scrn (NEGATIVE) Ur Amphetamines Screen (NEGATIVE) U Benzodiazepines Scrn (NEGATIVE) U Oth Cocaine Metabols (NEGATIVE) U Cannabinoids Screen (NEGATIVE) Blood Type Antibody Screen Laboratory Results - last 24 hr 07/21/18 07/21/18 07/21/18 20:28 20:28 20:28 WBC 19.0 H D RBC 3.44 L Hgb 10.0 L Hct 29.4 L MCV 85.5 MCH 29.0 MCHC 33.9 RDW 13.7 Plt Count 232 MPV 10.3 Neut % (Auto) 83.5 H Lymph % (Auto) 6.3 L [place] % (Auto) 9.9 Eos % (Auto) 0.0 Baso % (Auto) 0.3 Neut # (Auto) 15.8 H Lymph # (Auto) 1.2 [place] # (Auto) 1.9 H Eos # (Auto) 0.0 Baso # (Auto) 0.1 Neutrophils % (Manual) 93 H Lymphocytes % (Manual) 4 L Monocytes % (Manual) 3 Platelet Estimate Normal PT 15.6 H INR 1.4 APTT 34 Puncture Site pCO2 pO2 HCO3 ABG pH ABG Total CO2 ABG O2 Saturation ABG Base Excess ABG Hemoglobin ABG Carboxyhemoglobin POC ABG HHb (Measured) ABG Methemoglobin Flaco Test ABG Potassium A-a O2 Difference Respiratory Index Hgb O2 Saturation Glucose Lactate Vent Mode Mechanical Rate FiO2 Tidal Volume PEEP Sodium 130 L Potassium 3.3 L Chloride 95 L Carbon Dioxide 20 L Anion Gap 18 BUN 43 H Creatinine 1.8 H Est GFR ( Amer) 48 Est GFR (Non-Af Amer) 40 Random Glucose 95 Hemoglobin A1c Calcium 7.9 L Phosphorus Magnesium Total Bilirubin 0.5 AST 56 ALT 35 Alkaline Phosphatase 178 H D Troponin I < 0.0120 NT-Pro-B Natriuret Pep 216 Total Protein 7.0 Albumin 3.2 L Globulin 3.9 Albumin/Globulin Ratio 0.8 L Triglycerides 263 H Cholesterol 121 LDL Cholesterol Direct 42 HDL Cholesterol 15 L Lipase 32 Arterial Blood Potassium Urine Color Urine Clarity Urine pH Ur Specific [place] Urine Protein Urine Glucose (UA) Urine Ketones Urine Blood Urine Nitrate Urine Bilirubin Urine Urobilinogen Ur Leukocyte Esterase Urine WBC (Auto) Urine RBC (Auto) Ur Squamous Epith Cells Urine Bacteria Urine Opiates Screen Urine Methadone Screen Ur Barbiturates Screen Ur Phencyclidine Scrn Ur Amphetamines Screen U Benzodiazepines Scrn U Oth Cocaine Metabols U Cannabinoids Screen Blood Type Antibody Screen 07/21/18 07/21/18 07/21/18 20:30 20:31 20:31 WBC RBC Hgb Hct MCV MCH MCHC RDW Plt Count MPV Neut % (Auto) Lymph % (Auto) [place] % (Auto) Eos % (Auto) Baso % (Auto) Neut # (Auto) Lymph # (Auto) [place] # (Auto) Eos # (Auto) Baso # (Auto) Neutrophils % (Manual) Lymphocytes % (Manual) Monocytes % (Manual) Platelet Estimate PT INR APTT Puncture Site Rba pCO2 38 pO2 305 H HCO3 18.6 L ABG pH 7.28 L ABG Total CO2 19.1 L ABG O2 Saturation 95.7 ABG Base Excess -8.2 L ABG Hemoglobin ABG Carboxyhemoglobin POC ABG HHb (Measured) ABG Methemoglobin Flaco Test Pos ABG Potassium 2.9 L A-a O2 Difference 218.0 Respiratory Index 0.7 Hgb O2 Saturation Glucose 90 Lactate 0.8 Vent Mode Mechanical Rate FiO2 80.0 Tidal Volume PEEP Sodium 128.0 L Potassium Chloride 100.0 Carbon Dioxide Anion Gap BUN Creatinine Est GFR ( Amer) Est GFR (Non-Af Amer) Random Glucose Hemoglobin A1c 8.9 H Calcium Phosphorus Magnesium Total Bilirubin AST ALT Alkaline Phosphatase Troponin I NT-Pro-B Natriuret Pep Total Protein Albumin Globulin Albumin/Globulin Ratio Triglycerides Cholesterol LDL Cholesterol Direct HDL Cholesterol Lipase Arterial Blood Potassium 2.9 L Urine Color Connie Urine Clarity Hazy Urine pH 5.0 Ur Specific [place] 1.016 Urine Protein 2+ H Urine Glucose (UA) Normal Urine Ketones Negative Urine Blood 2+ H Urine Nitrate Negative Urine Bilirubin Negative Urine Urobilinogen Normal Ur Leukocyte Esterase Trace Urine WBC (Auto) 340 H Urine RBC (Auto) 6 H Ur Squamous Epith Cells 1 Urine Bacteria Many H Urine Opiates Screen Urine Methadone Screen Ur Barbiturates Screen Ur Phencyclidine Scrn Ur Amphetamines Screen U Benzodiazepines Scrn U Oth Cocaine Metabols U Cannabinoids Screen Blood Type Antibody Screen 07/21/18 07/21/18 07/22/18 21:25 22:03 05:46 WBC RBC Hgb Hct MCV MCH MCHC RDW Plt Count MPV Neut % (Auto) Lymph % (Auto) [place] % (Auto) Eos % (Auto) Baso % (Auto) Neut # (Auto) Lymph # (Auto) [place] # (Auto) Eos # (Auto) Baso # (Auto) Neutrophils % (Manual) Lymphocytes % (Manual) Monocytes % (Manual) Platelet Estimate PT INR APTT Puncture Site L rad pCO2 28 L pO2 183 H HCO3 20.6 L ABG pH 7.42 ABG Total CO2 19.1 L ABG O2 Saturation 95.9 ABG Base Excess -5.5 L ABG Hemoglobin 8.0 L ABG Carboxyhemoglobin 0 L POC ABG HHb (Measured) 4.1 ABG Methemoglobin 0.0 Flaco Test Pos ABG Potassium A-a O2 Difference 67.0 Respiratory Index 0.4 Hgb O2 Saturation 95.9 Glucose Lactate Vent Mode Prvc Mechanical Rate 16 FiO2 40.0 Tidal Volume 500 PEEP 5 Sodium Potassium Chloride Carbon Dioxide Anion Gap BUN Creatinine Est GFR ( Amer) Est GFR (Non-Af Amer) Random Glucose Hemoglobin A1c Calcium Phosphorus Magnesium Total Bilirubin AST ALT Alkaline Phosphatase Troponin I NT-Pro-B Natriuret Pep Total Protein Albumin Globulin Albumin/Globulin Ratio Triglycerides Cholesterol LDL Cholesterol Direct HDL Cholesterol Lipase Arterial Blood Potassium Urine Color Urine Clarity Urine pH Ur Specific [place] Urine Protein Urine Glucose (UA) Urine Ketones Urine Blood Urine Nitrate Urine Bilirubin Urine Urobilinogen Ur Leukocyte Esterase Urine WBC (Auto) Urine RBC (Auto) Ur Squamous Epith Cells Urine Bacteria Urine Opiates Screen Negative Urine Methadone Screen Negative Ur Barbiturates Screen Negative Ur Phencyclidine Scrn Negative Ur Amphetamines Screen Negative U Benzodiazepines Scrn Negative U Oth Cocaine Metabols Negative U Cannabinoids Screen Negative Blood Type O POSITIVE Antibody Screen Negative 07/22/18 07/22/18 05:56 05:56 WBC 11.9 H RBC 2.91 L Hgb 8.4 L Hct 25.4 L MCV 87.3 MCH 28.7 MCHC 32.8 L RDW 13.8 Plt Count 196 MPV 11.0 Neut % (Auto) 84.1 H Lymph % (Auto) 5.6 L [place] % (Auto) 9.3 Eos % (Auto) 0.3 Baso % (Auto) 0.7 Neut # (Auto) 10.0 H Lymph # (Auto) 0.7 L [place] # (Auto) 1.1 H Eos # (Auto) 0.0 Baso # (Auto) 0.1 Neutrophils % (Manual) Lymphocytes % (Manual) Monocytes % (Manual) Platelet Estimate PT INR APTT Puncture Site pCO2 pO2 HCO3 ABG pH ABG Total CO2 ABG O2 Saturation ABG Base Excess ABG Hemoglobin ABG Carboxyhemoglobin POC ABG HHb (Measured) ABG Methemoglobin Flaco Test ABG Potassium A-a O2 Difference Respiratory Index Hgb O2 Saturation Glucose Lactate Vent Mode Mechanical Rate FiO2 Tidal Volume PEEP Sodium 131 L Potassium 3.5 L Chloride 102 Carbon Dioxide 17 L Anion Gap 15 BUN 45 H Creatinine 1.6 H Est GFR ( Amer) 55 Est GFR (Non-Af Amer) 45 Random Glucose 97 Hemoglobin A1c Calcium 7.1 L Phosphorus 5.0 H Magnesium 2.1 Total Bilirubin 0.3 AST 43 ALT 32 Alkaline Phosphatase 136 H D Troponin I NT-Pro-B Natriuret Pep Total Protein 5.6 L Albumin 2.5 L D Globulin 3.1 Albumin/Globulin Ratio 0.8 L Triglycerides Cholesterol LDL Cholesterol Direct HDL Cholesterol Lipase Arterial Blood Potassium Urine Color Urine Clarity Urine pH Ur Specific [place] Urine Protein Urine Glucose (UA) Urine Ketones Urine Blood Urine Nitrate Urine Bilirubin Urine Urobilinogen Ur Leukocyte Esterase Urine WBC (Auto) Urine RBC (Auto) Ur Squamous Epith Cells Urine Bacteria Urine Opiates Screen Urine Methadone Screen Ur Barbiturates Screen Ur Phencyclidine Scrn Ur Amphetamines Screen U Benzodiazepines Scrn U Oth Cocaine Metabols U Cannabinoids Screen Blood Type Antibody Screen EKG/Cardiology Studies: Cardiology / EKG Studies 07/21/18 20:03 EKG [ELECTROCARDIOGRAM] Stat Comment: Mode Of Transportation: BED Reason For Exam: cp 07/21/18 20:16 ELECTROCARDIOGRAM Stat Comment: Mode Of Transportation: BED Reason For Exam: abd pain Fingerstick Blood Sugar Results: 99 Results Reviewed to Date: Yes Review of Systems - Review of Systems Systems not reviewed;Unavailable: Intubated Critical Care Progress Note - Ventilator Checklist Head of Bed 30 Degrees: Yes Daily Sedation Vacation: Yes Daily Assessment of Readiness to Wean: Yes Daily Spontaneous Breathing Trial: Yes PUD Prophalyxis: Yes DVT Prophylaxis: Yes Oral Care with Chlorhexidine Gluconate {CHG}: Yes - Vent Settings MODE:: CPAP PEEP:: 5 PRESSURE SUPPORT:: 10 - Extremities/Vascular Does the Patient have a Central Venous Catheter?: No Does the Patient need a Central Venous Catheter?: No Does the Patient have a Jin Catheter?: Yes Does the Patient need a Jin Catheter?: Yes Catheter Insertion Criteria: Incontinence as per policy - Prophylaxis GI Prophylaxis GI: PPI - Prophylaxis DVT Prophylaxis DVT: Heparin SQ Assessment/Plan - Assessment and Plan (Free Text) Assessment: Patient is a 53 yo male with a history of uncontrolled T2DM (s/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 Code stroke was called, and CT head was negative for acute findings. Patient was intubated and placed on sedation. He was successfully extubated <24hrs after admission. Plan: Neuro: - Code stroke - CT head: no acute findings - CTA head and neck: no significant stenoses or abnormalities - EEG pending - PRL wnl (12.9) - Discontinue Precedex - Keppra 1000 mg IV Q12H - Neurology consulted (Manda) - PT/OT/ST CV: - Monitor vitals Pulm: - CXR: no acute findings - Maintain spO2>92%- NC PRN - ABG: acidosis resolved - Extubated GI: - NPO- pending [employer] eval Renal: - Elevated BUN (45), Cr (1.6) - IVF - Discontinue Jin - I's & O's - Replete electrolytes PRN Endo: - A1c 8.9 - Maintain euglycemia - Hypoglycemia protocol - Accuchecks Q6H with Novolin R ISS Heme: - Hgb (8.4)- baseline - Monitor H&H ID: - Leukocytosis improving (19->11.9) - Afebrile - UA: many magda, 340 WBC, trace LE, no nitrate - Blood, urine Cx pending - Procal pending - Doxycycline 100 mg IV Q12H - Zosyn 2.25 mg IV Q6H Ppx: VTE: heparin 5000 units Q12H GI: Protonix 40 mg IV daily IVF: pending [employer] eval Code status: full code Case discussed with attending, Dr. Hooker. PGY-1 Nan Osman D.O. <Che Hooker - Last Filed: 07/29/18 13:53> CCU Objective - Vital Signs / Intake & Output Vital Signs (Last 4 hours): Vital Signs BP 07/29/18 11:05 152/76 H Intake and Output (Last 8hrs): Intake & Output 07/28/18 07/29/18 07/29/18 22:59 06:59 14:59 Intake Total 350 300 Output Total 400 700 Balance -50 -400 Intake: Intake, IV Amount 50 50 right upper arm 50 50 Oral 300 250 Output: Urine 400 700 Urethral (Jin) 400 700 Other: # Bowel Movements 0 - Medications Active Medications: Active Medications Generic Name Dose Route Start Last Admin Trade Name Freq PRN Reason Stop Dose Admin Acetaminophen 650 mg 07/24/18 16:25 07/28/18 17:28 Tylenol 325mg Tab PO 650 mg Q6 PRN Administration Fever >100.4 or Pain Aspirin 81 mg 07/23/18 10:00 07/29/18 11:06 Ecotrin PO 81 mg DAILY JASPREET Administration Dextrose 0 ml 07/22/18 00:04 07/22/18 11:53 Dextrose 50% Inj IV 50 ml STAT PRN Administration Hypoglycemia Protocol Protocol Dextrose 0 gm 07/22/18 00:04 Glutose 15 PO ONCE PRN Hypoglycemia Protocol Protocol Docusate Sodium 100 mg 07/26/18 10:00 07/29/18 11:05 Colace PO 100 mg BID JASPREET Administration Enalapril Maleate 30 mg 07/24/18 10:00 07/29/18 11:05 Vasotec PO 30 mg DAILY JASPREET Administration Finasteride 5 mg 07/28/18 10:00 07/29/18 11:21 Proscar PO 5 mg DAILY JASPREET Administration Gabapentin 100 mg 07/23/18 14:00 07/29/18 11:05 Neurontin PO 100 mg TID JASPREET Administration Glucagon 0 mg 07/22/18 00:04 Glucagen Diagnostic Kit IM STAT PRN Hypoglycemia Protocol Protocol Cefazolin Sodium 2,000 mg/ 50 mls @ 100 mls/hr 07/25/18 19:00 07/29/18 11:21 Sodium Chloride IVPB 100 mls/hr Q8H JASPREET Administration Protocol Insulin Glargine 16 unit 07/29/18 10:00 07/29/18 11:06 Lantus SC 16 units DAILY JASPREET Administration Insulin Human Regular 0 unit 07/23/18 07:30 07/29/18 12:01 Novolin R SC 4 units ACHS JASPREET Administration Protocol Metoprolol Succinate 50 mg 07/26/18 10:00 07/29/18 11:05 Toprol Xl PO 50 mg DAILY JASPREET Administration Mupirocin 0 gm 07/26/18 18:00 07/29/18 11:21 Bactroban Ointment TOP 1 applic BID JASPREET Administration Oxycodone/Acetaminophen 1 tab 07/29/18 11:37 07/29/18 11:58 Percocet 5/325 Mg Tab PO 08/01/18 11:38 1 tab Q4H PRN Administration Pain, moderate (4-7) Pantoprazole Sodium 40 mg 07/24/18 10:00 07/29/18 11:06 Protonix Ec Tab PO 40 mg DAILY JASPREET Administration Tamsulosin HCl 0.4 mg 07/26/18 18:00 07/29/18 11:04 Flomax PO 0.4 mg BID JASPREET Administration - Patient Studies Lab Studies: Lab Studies 07/29/18 07/29/18 07/29/18 Range/Units 11:15 09:29 09:29 WBC 14.8 H (4.8-10.8) K/uL RBC 2.74 L (4.40-5.90) Mil/uL Hgb 8.1 L (12.0-18.0) g/dL Hct 24.1 L (35.0-51.0) % MCV 88.0 (80.0-94.0) fL MCH 29.5 (27.0-31.0) pg MCHC 33.5 (33.0-37.0) g/dL RDW 13.5 (11.5-14.5) % Plt Count 453 H (130-400) K/uL MPV 8.9 (7.2-11.7) fL Neut % (Auto) 82.3 H (50.0-75.0) % Lymph % (Auto) 10.4 L (20.0-40.0) % [place] % (Auto) 5.0 (0.0-10.0) % Eos % (Auto) 1.6 (0.0-4.0) % Baso % (Auto) 0.7 (0.0-2.0) % Neut # (Auto) 12.2 H (1.8-7.0) K/uL Lymph # (Auto) 1.5 (1.0-4.3) K/uL [place] # (Auto) 0.7 (0.0-0.8) K/uL Eos # (Auto) 0.2 (0.0-0.7) K/uL Baso # (Auto) 0.1 (0.0-0.2) K/uL Sodium 128 L (132-148) mmol/L Potassium 4.4 (3.6-5.2) mmol/L Chloride 96 L (98-107) mmol/L Carbon Dioxide 24 (22-30) mmol/L Anion Gap 13 (10-20) BUN 13 (9-20) mg/dL Creatinine 0.7 L (0.8-1.5) mg/dL Est GFR ( Amer) > 60 Est GFR (Non-Af Amer) > 60 POC Glucose (mg/dL) 253 H (65-110) mg/dL Random Glucose 227 H (75-110) mg/dL Calcium 7.9 L (8.6-10.4) mg/dl Phosphorus 3.6 (2.5-4.5) mg/dL Magnesium 1.6 (1.6-2.3) mg/dL Total Bilirubin 0.3 (0.2-1.3) mg/dL AST 26 (17-59) U/L ALT 18 L (21-72) U/L Alkaline Phosphatase 89 (38-126) U/L Total Protein 5.8 L (6.3-8.3) g/dL Albumin 2.5 L (3.5-5.0) g/dL Globulin 3.2 (2.2-3.9) gm/dL Albumin/Globulin Ratio 0.8 L (1.0-2.1) 07/29/18 07/28/18 07/28/18 Range/Units 07:09 21:05 15:54 WBC (4.8-10.8) K/uL RBC (4.40-5.90) Mil/uL Hgb (12.0-18.0) g/dL Hct (35.0-51.0) % MCV (80.0-94.0) fL MCH (27.0-31.0) pg MCHC (33.0-37.0) g/dL RDW (11.5-14.5) % Plt Count (130-400) K/uL MPV (7.2-11.7) fL Neut % (Auto) (50.0-75.0) % Lymph % (Auto) (20.0-40.0) % [place] % (Auto) (0.0-10.0) % Eos % (Auto) (0.0-4.0) % Baso % (Auto) (0.0-2.0) % Neut # (Auto) (1.8-7.0) K/uL Lymph # (Auto) (1.0-4.3) K/uL [place] # (Auto) (0.0-0.8) K/uL Eos # (Auto) (0.0-0.7) K/uL Baso # (Auto) (0.0-0.2) K/uL Sodium (132-148) mmol/L Potassium (3.6-5.2) mmol/L Chloride (98-107) mmol/L Carbon Dioxide (22-30) mmol/L Anion Gap (10-20) BUN (9-20) mg/dL Creatinine (0.8-1.5) mg/dL Est GFR ( Amer) Est GFR (Non-Af Amer) POC Glucose (mg/dL) 202 H 183 H 264 H (65-110) mg/dL Random Glucose (75-110) mg/dL Calcium (8.6-10.4) mg/dl Phosphorus (2.5-4.5) mg/dL Magnesium (1.6-2.3) mg/dL Total Bilirubin (0.2-1.3) mg/dL AST (17-59) U/L ALT (21-72) U/L Alkaline Phosphatase (38-126) U/L Total Protein (6.3-8.3) g/dL Albumin (3.5-5.0) g/dL Globulin (2.2-3.9) gm/dL Albumin/Globulin Ratio (1.0-2.1) Laboratory Results - last 24 hr 07/28/18 07/28/18 07/29/18 15:54 21:05 07:09 WBC RBC Hgb Hct MCV MCH MCHC RDW Plt Count MPV Neut % (Auto) Lymph % (Auto) [place] % (Auto) Eos % (Auto) Baso % (Auto) Neut # (Auto) Lymph # (Auto) [place] # (Auto) Eos # (Auto) Baso # (Auto) Sodium Potassium Chloride Carbon Dioxide Anion Gap BUN Creatinine Est GFR ( Amer) Est GFR (Non-Af Amer) POC Glucose (mg/dL) 264 H 183 H 202 H Random Glucose Calcium Phosphorus Magnesium Total Bilirubin AST ALT Alkaline Phosphatase Total Protein Albumin Globulin Albumin/Globulin Ratio 07/29/18 07/29/18 07/29/18 09:29 09:29 11:15 WBC 14.8 H RBC 2.74 L Hgb 8.1 L Hct 24.1 L MCV 88.0 MCH 29.5 MCHC 33.5 RDW 13.5 Plt Count 453 H MPV 8.9 Neut % (Auto) 82.3 H Lymph % (Auto) 10.4 L [place] % (Auto) 5.0 Eos % (Auto) 1.6 Baso % (Auto) 0.7 Neut # (Auto) 12.2 H Lymph # (Auto) 1.5 [place] # (Auto) 0.7 Eos # (Auto) 0.2 Baso # (Auto) 0.1 Sodium 128 L Potassium 4.4 Chloride 96 L Carbon Dioxide 24 Anion Gap 13 BUN 13 Creatinine 0.7 L Est GFR ( Amer) > 60 Est GFR (Non-Af Amer) > 60 POC Glucose (mg/dL) 253 H Random Glucose 227 H Calcium 7.9 L Phosphorus 3.6 Magnesium 1.6 Total Bilirubin 0.3 AST 26 ALT 18 L Alkaline Phosphatase 89 Total Protein 5.8 L Albumin 2.5 L Globulin 3.2 Albumin/Globulin Ratio 0.8 L Critical Care Progress Note - Nutrition Nutrition: Nutrition Category Date Time Status Heart Healthy Diet [DIET] Diets 07/23/18 Breakfast Active Assessment/Plan - Assessment and Plan (Free Text) Assessment: Patient was extubated. He is awake and responding. Facial cellulitis present. I agree with the current plan. Will continue the antibiotic as per infectious disease. Out of bed to chair possibly
[2018-07-22 08:24] LABS: BANDS 4 % (0-2); LYMPHOCYTE 8 % (20-40); MONOCYTE 9 % (0-10); NEUTROPHIL 79 % (50-75); PLATELET ESTIMATE NORMAL (NORMAL); TOTAL CELLS COUNTED 100
--- NOTE | 2018-07-22 08:24 | RAD ---
Date of service: 2018-07-21 20:15:16 HISTORY: Abdominal pain COMPARISON: No prior. FINDINGS: LUNGS: Endotracheal tube extending into the midthoracic trachea. Mild to moderate venous congestion. Right hilar prominence. Patchy increased markings at the left lung base. PLEURA: As above. CARDIOVASCULAR: Aortic atherosclerotic calcification present. Tortuous ectatic aorta. Mild cardiomegaly. OSSEOUS STRUCTURES: No significant abnormalities. VISUALIZED UPPER ABDOMEN: Normal. OTHER FINDINGS: None. IMPRESSION: Endotracheal tube extending into the midthoracic trachea. Mild to moderate venous congestion. Right hilar prominence. Patchy increased markings at the left lung base.
[2018-07-22 08:25] LABS: HYPOCHROMIC SLIGHT; POLYCHROMIC SLIGHT
--- NOTE | 2018-07-22 08:45 | RAD ---
Date of service: 07/22/2018 HISTORY: intubated COMPARISON: 07/21/2018 FINDINGS: Endotracheal tube terminates 6 cm proximal to the binta LUNGS: The lungs are well inflated and clear. PLEURA: No pleural effusions or pneumothorax. CARDIOVASCULAR: The heart is normal in size. No aortic atherosclerotic calcification present. OSSEOUS STRUCTURES: Within normal limits for the patient's age. VISUALIZED UPPER ABDOMEN: Normal. OTHER FINDINGS: None. IMPRESSION: No acute findings. Stable position of the endotracheal tube.
--- NOTE | 2018-07-22 09:02 | CP.PCM.PN ---
Subjective - Date & Time of Evaluation Date of Evaluation: 07/22/18 Time of Evaluation: 08:30 - Subjective Subjective: Patient currently intubated on precedex ggt He is awake and responding and interactive. Moving both arms, gesturing to have the tube removed. He is currently on a CPAP trial this morning and hopefully can be extubated soon. 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 Family members found patient not responding and was brought into the hospital. He was intubated in the field. WBC decreased from 19 to 11. The UA was very dirty, possible source of sepsis. On Zosyn IV. Blood cultures taken, I added on urine cultures too. He was placed on Keppra for seizure risk as well. Objective - Vital Signs/Intake and Output Vital Signs (last 24 hours): Temp Pulse Resp BP Pulse Ox 97.9 F 95 H 16 112/61 100 07/22/18 04:00 07/22/18 07:00 07/22/18 07:00 07/22/18 06:46 07/22/18 06:46 Intake and Output: 07/22/18 07/22/18 06:59 18:59 Intake Total 1599.5 117.6 Output Total 800 225 Balance 799.5 -107.4 - Medications Medications: Current Medications Dextrose (Dextrose 50% Inj) 0 ml IV STAT PRN; Protocol PRN Reason: Hypoglycemia Protocol Dextrose (Glutose 15) 0 gm PO ONCE PRN; Protocol PRN Reason: Hypoglycemia Protocol Glucagon (Glucagen Diagnostic Kit) 0 mg IM STAT PRN; Protocol PRN Reason: Hypoglycemia Protocol Heparin Sodium (Porcine) (Heparin) 5,000 units SC Q12 JASPREET Levetiracetam 1,000 mg/ (Dextrose) 110 mls @ 420 mls/hr IVPB Q12H JASPREET Last Admin: 07/21/18 22:13 Dose: 420 mls/hr Dextrose (Dextrose 5% In Water 1000 Ml) 1,000 mls @ 0 mls/hr IV .Q0M PRN; Protocol PRN Reason: Hypoglycemia Protocol Doxycycline Hyclate 100 mg/ (Sodium Chloride) 100 mls @ 100 mls/hr IVPB Q12H JASPREET; Protocol Last Admin: 07/22/18 00:46 Dose: 100 mls/hr Piperacillin Sod/Tazobactam Sod (Zosyn 2.25 Gm Iv Premix) 2.25 gm in 50 mls @ 100 mls/hr IVPB Q6H JASPREET; Protocol Last Admin: 07/22/18 03:42 Dose: 100 mls/hr Dexmedetomidine HCl 200 mcg/ (Sodium Chloride) 50 mls @ 4.75 mls/hr IV TITR PRN; Protocol PRN Reason: Sedation Last Admin: 07/22/18 07:53 Dose: 0.5 mcg/kg/hr, 11.88 mls/hr Potassium Chloride (Potassium Chloride 20 Meq/100 Ml) 20 meq in 100 mls @ 50 mls/hr IVPB Q2 JASPREET Stop: 07/22/18 11:59 Last Admin: 07/22/18 08:08 Dose: 50 mls/hr Insulin Human Regular (Novolin R) 0 unit SC Q6H JASPREET; Protocol Last Admin: 07/22/18 05:28 Dose: Not Given Pantoprazole Sodium (Protonix Inj) 40 mg IVP DAILY JASPREET - Labs Labs: 07/22/18 05:56 07/22/18 05:56 PT 15.6 SECONDS (9.7-12.2) H 07/21/18 20:28 INR 1.4 07/21/18 20:28 APTT 34 SECONDS (21-34) 07/21/18 20:28 - Constitutional Appears: No Acute Distress, Chronically Ill - Head Exam Additional comments: loss of nasal cartilage hx of facial cellulitis - ENT Exam Additional comments: loss of left nasal cartiale hx of cellultis - Respiratory Exam Respiratory Exam: Clear to Ausculation Bilateral - Cardiovascular Exam Cardiovascular Exam: REGULAR RHYTHM - Extremities Exam Additional comments: Bilateral BKAs - Neurological Exam Neurological Exam: Alert, Awake Neuro motor strength exam: Left Upper Extremity: 4, Right Upper Extremity: 4 Assessment and Plan - Assessment and Plan (Free Text) Assessment: This is a relatively young patient who unfourtunately has extensive medical history including 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 He also has history of DM, HTN, and was last seen responsive at 3pm by . About 45 minutes later, patients return to find patient unresponsive, gurgling. Patient was intubated onsite by EMS w/ paralytics. This morning is on CPAP trial and hopefully extubated soon. Leucocytosis Suspected aspiration 07/22: WBC decreased to 11. Possible UTI source. On Zosyn and Doxyckine at this moment. Zosyn, Doxycyclin Pending Urine, Blood, and procalcitonin at this time. Unresponsiveness, respiratory distress, with no significant hypoxia on ABG Suspected Seizure 07/22: Awake this morning, moving arms. Interactive. He is gesturing to have tube removed. On CPAP trial this moment. - CTA: mild stenosis of L& R common carotid bifurcation as well proximal internal carotid arteries no acute pathology, no significant stenosis. 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
--- NOTE | 2018-07-22 10:18 | CT ---
Date of service: 07/21/2018 PROCEDURE: CT HEAD WITHOUT CONTRAST. HISTORY: Code Stroke COMPARISON: CT head dated 03/08/2018 TECHNIQUE: Axial computed tomography images were obtained through the head/brain without intravenous contrast. Radiation dose: Total exam DLP = 1228.4 mGy-cm. This CT exam was performed using one or more of the following dose reduction techniques: Automated exposure control, adjustment of the mA and/or kV according to patient size, and/or use of iterative reconstruction technique. FINDINGS: HEMORRHAGE: No intracranial hemorrhage. BRAIN: No mass effect or edema. No atrophy or chronic microvascular ischemic changes. VENTRICLES: Unremarkable. No hydrocephalus. CALVARIUM: Unremarkable. PARANASAL SINUSES: Mild bilateral ethmoid air cell mucosal thickening. MASTOID AIR CELLS: Unremarkable as visualized. No inflammatory changes. OTHER FINDINGS: None. IMPRESSION: No acute intracranial pathology. Preliminary findings conveyed to Dr. Bhatt by Dr. Thompson at 9:07 p.m. on 07/21/2018
--- NOTE | 2018-07-22 10:54 | CT ---
PROCEDURE: CTA HEAD AND NECK WITH CONTRAST HISTORY: unresponsive COMPARISON: None available. TECHNIQUE: Initial noncontrast head CT was performed. Subsequently, CT angiogram of the head and neck were performed after the intravenous administration of 80 mL of Omnipaque 350. Contiguous 1.5mm thick images were obtained in the axial plane of the neck. 2-D coronal and sagittal MPR images were obtained. Imaging postprocessing was performed with 3-D images also obtained. A delayed contrast head CT was also obtained. This CT exam was performed using one or more of the following dose reduction techniques: Automated exposure control, adjustment of the mA and/or kV according to patient size, and/or use of iterative reconstruction technique. Contrast dose: 100 mL Visipaque 320 Radiation dose: Total exam DLP = 552.53 mGy-cm. FINDINGS: HEAD: Right: The intracranial internal carotid artery, and anterior and middle cerebral arteries are widely patent. Left: The intracranial internal carotid artery, and anterior and middle cerebral arteries are widely patent. Posterior circulation: The visualized intracranial vertebral arteries, basilar artery and posterior cerebral arteries are widely patent. There is no endoluminal filling defect to suggest thrombus. There is no intracranial saccular aneurysm. NECK: There is a three vessel aortic arch. There is no stenosis at the origins of the great vessels at the level of the aortic arch. There are dense atherosclerotic calcifications and mural plaques in bilateral carotid bulbs and proximal internal carotid artery is, worse on the right. Right Carotid: On the right, the common carotid, internal carotid and external carotid arteries are widely patent. There is no hemodynamically significant stenosis in the internal carotid artery by NASCET criteria. Left Carotid: On the left, the common carotid, internal carotid and external carotid arteries are widely patent. There is no hemodynamically significant stenosis in the internal carotid artery by NASCET criteria. The vertebral arteries are widely patent. The left vertebral artery is hypoplastic, an anatomic variant. An endotracheal tube remains in place. The visualized soft tissues of the neck are normal. There is subsegmental atelectasis in the left upper lobe. IMPRESSION: 1. No evidence of endoluminal thrombus,occlusion or definite significant stenosis in the intracranial arteries. 2. No evidence of hemodynamically significant stenosis in the internal carotid arteries. 3. Patent bilateral vertebral arteries. A preliminary report was provided by [facility].
[2018-07-22 11:02] LABS: PROLACTIN 12.9 ng/mL (3.7-17.9)
--- NOTE | 2018-07-22 12:44 | CARD ---
APPROVED REPORT Date of service: 07/21/2018 EKG Measurement Heart [id number] <Conclusion> Sinus tachycardia Minimal voltage criteria for LVH, may be normal variant Borderline ECG
--- NOTE | 2018-07-22 16:12 | CP.PCM.CON ---
History of Present Illness - History of Present Illness History of Present Illness: Neurology Consultation Note: Mr. Bowling is a 53-year-old man with a past medical history of hypertension, diabetes, B/L BKA, cellulitis, erosion of nasal cartilage was found in respiratory distress and unresponsive by his yesterday at 6:30 PM, and last seen normal at 3 PM. He was intubated in the field by EMS. After he was b rought in CT and CTA of the head/neck did not show any significant findings. It is uncertain if he had a seizure, but was started on Keppra. Neurology was consulted to assist with the management and care. Today, the patient is awake, alert, but still somewhat confused. He moves all extremities. Was extubated. He is asking for water. No seizures reported. Review of Systems - Review of Systems Systems not reviewed;Unavailable: Altered Mental Status Past Patient History - Infectious Disease Hx of Infectious Diseases: None - Past Medical History & Family History Past Medical History?: Yes - Past Social History Smoking Status: Former Smoker - CARDIAC Hx Hypertension: Yes - PULMONARY Hx Respiratory Disorders: No - NEUROLOGICAL Hx Neurological Disorder: No - HEENT Hx HEENT Problems: No - RENAL Hx Chronic Kidney Disease: No - ENDOCRINE/METABOLIC Hx Diabetes Mellitus Type 1: Yes Hx Diabetes Mellitus Type 2: Yes - HEMATOLOGICAL/ONCOLOGICAL Hx Anemia: Yes Hx Human Immunodeficiency Virus (HIV): No - INTEGUMENTARY Hx Dermatological Problems: Yes Hx Cellulitis: Yes Other/Comment: Ulcer right foot - MUSCULOSKELETAL/RHEUMATOLOGICAL Hx Musculoskeletal Disorders: Yes (SEE COMMENT) Hx Falls: No Hx Osteomyelitis: Yes Other/Comment: BILATERAL BK-AMPUTATIONS - GASTROINTESTINAL Hx Gastrointestinal Disorders: No - GENITOURINARY/GYNECOLOGICAL Hx Genitourinary Disorders: No - PSYCHIATRIC Hx Depression: Yes Hx Substance Use: No - SURGICAL HISTORY Hx Surgeries: Yes Hx Amputation: Yes (Bilateral BKA) - ANESTHESIA Hx Anesthesia: Yes Hx Anesthesia Reactions: No Hx Malignant Hyperthermia: No Meds Allergies/Adverse Reactions: Allergies Allergy/AdvReac Type Severity Reaction Status Date / Time No Known Allergies Allergy Verified 07/21/18 20:06 - Medications Medications: Current Medications Aspirin (Ecotrin) 81 mg PO DAILY JASPREET Dextrose (Dextrose 50% Inj) 0 ml IV STAT PRN; Protocol PRN Reason: Hypoglycemia Protocol Last Admin: 07/22/18 11:53 Dose: 50 ml Dextrose (Glutose 15) 0 gm PO ONCE PRN; Protocol PRN Reason: Hypoglycemia Protocol Glucagon (Glucagen Diagnostic Kit) 0 mg IM STAT PRN; Protocol PRN Reason: Hypoglycemia Protocol Heparin Sodium (Porcine) (Heparin) 5,000 units SC Q12 JASPREET Last Admin: 07/22/18 10:23 Dose: 5,000 units Levetiracetam 1,000 mg/ (Dextrose) 110 mls @ 420 mls/hr IVPB Q12H JASPREET Last Admin: 07/22/18 09:49 Dose: 420 mls/hr Dextrose (Dextrose 5% In Water 1000 Ml) 1,000 mls @ 0 mls/hr IV .Q0M PRN; Protocol PRN Reason: Hypoglycemia Protocol Doxycycline Hyclate 100 mg/ (Sodium Chloride) 100 mls @ 100 mls/hr IVPB Q12H JASPREET; Protocol Last Admin: 07/22/18 14:52 Dose: 100 mls/hr Piperacillin Sod/Tazobactam Sod (Zosyn 2.25 Gm Iv Premix) 2.25 gm in 50 mls @ 100 mls/hr IVPB Q6H JASPREET; Protocol Last Admin: 07/22/18 09:56 Dose: 100 mls/hr Insulin Human Regular (Novolin R) 0 unit SC Q6H JASPREET; Protocol Last Admin: 07/22/18 13:43 Dose: Not Given Pantoprazole Sodium (Protonix Inj) 40 mg IVP DAILY JASPREET Last Admin: 07/22/18 10:23 Dose: 40 mg Physical Exam - Constitutional Appears: Chronically Ill - Head Exam Additional comments: erosion of nasal cartilage. - Eye Exam Eye Exam: EOMI, Normal appearance, PERRL - Neck Exam Neck exam: Positive for: Normal Inspection - Cardiovascular Exam Cardiovascular Exam: REGULAR RHYTHM, +S1, +S2 - GI/Abdominal Exam GI & Abdominal Exam: Normal Bowel Sounds, Soft. absent: Tenderness - Rectal Exam Rectal Exam: Deferred - Neurological Exam Neurological exam: Altered, CN II-XII Intact, Reflexes Normal Additional comments: bilateral BKA, but moves both upper extremities to command with symmetrical strength. No other focal neurological deficits noted. Results - Vital Signs Recent Vital Signs: Last Vital Signs Temp 99.8 F H 07/22/18 14:09 Pulse 98 H 07/22/18 15:00 Resp 28 H 10/29/18 15:00 BP 140/63 10/29/18 14:46 Pulse Ox 98 07/22/18 15:00 - Labs Result Diagrams: 07/22/18 05:56 07/22/18 05:56 Labs: Laboratory Results - last 24 hr 07/21/18 07/21/18 07/21/18 20:07 20:28 20:28 WBC 19.0 H D RBC 3.44 L Hgb 10.0 L Hct 29.4 L MCV 85.5 MCH 29.0 MCHC 33.9 RDW 13.7 Plt Count 232 MPV 10.3 Neut % (Auto) 83.5 H Lymph % (Auto) 6.3 L [place] % (Auto) 9.9 Eos % (Auto) 0.0 Baso % (Auto) 0.3 Neut # (Auto) 15.8 H Lymph # (Auto) 1.2 [place] # (Auto) 1.9 H Eos # (Auto) 0.0 Baso # (Auto) 0.1 Neutrophils % (Manual) 93 H Band Neutrophils % Lymphocytes % (Manual) 4 L Monocytes % (Manual) 3 Platelet Estimate Normal Polychromasia Hypochromasia (manual) PT 15.6 H INR 1.4 APTT 34 Puncture Site pCO2 pO2 HCO3 ABG pH ABG Total CO2 ABG O2 Saturation ABG Base Excess ABG Hemoglobin ABG Carboxyhemoglobin POC ABG HHb (Measured) ABG Methemoglobin Flaco Test ABG Potassium A-a O2 Difference Respiratory Index Hgb O2 Saturation Glucose Lactate Vent Mode Mechanical Rate FiO2 Tidal Volume PEEP Sodium Potassium Chloride Carbon Dioxide Anion Gap BUN Creatinine Est GFR ( Amer) Est GFR (Non-Af Amer) POC Glucose (mg/dL) 82 Random Glucose Hemoglobin A1c Calcium Phosphorus Magnesium Total Bilirubin AST ALT Alkaline Phosphatase Troponin I NT-Pro-B Natriuret Pep Total Protein Albumin Globulin Albumin/Globulin Ratio Triglycerides Cholesterol LDL Cholesterol Direct HDL Cholesterol Lipase Prolactin Arterial Blood Potassium Urine Color Urine Clarity Urine pH Ur Specific [place] Urine Protein Urine Glucose (UA) Urine Ketones Urine Blood Urine Nitrate Urine Bilirubin Urine Urobilinogen Ur Leukocyte Esterase Urine WBC (Auto) Urine RBC (Auto) Ur Squamous Epith Cells Urine Bacteria Urine Opiates Screen Urine Methadone Screen Ur Barbiturates Screen Ur Phencyclidine Scrn Ur Amphetamines Screen U Benzodiazepines Scrn U Oth Cocaine Metabols U Cannabinoids Screen Blood Type Antibody Screen 07/21/18 07/21/1818 20:28 20:30 20:31 WBC RBC Hgb Hct MCV MCH MCHC RDW Plt Count MPV Neut % (Auto) Lymph % (Auto) [place] % (Auto) Eos % (Auto) Baso % (Auto) Neut # (Auto) Lymph # (Auto) [place] # (Auto) Eos # (Auto) Baso # (Auto) Neutrophils % (Manual) Band Neutrophils % Lymphocytes % (Manual) Monocytes % (Manual) Platelet Estimate Polychromasia Hypochromasia (manual) PT INR APTT Puncture Site Rba pCO2 38 pO2 305 H HCO3 18.6 L ABG pH 7.28 L ABG Total CO2 19.1 L ABG O2 Saturation 95.7 ABG Base Excess -8.2 L ABG Hemoglobin ABG Carboxyhemoglobin POC ABG HHb (Measured) ABG Methemoglobin Flaco Test Pos ABG Potassium 2.9 L A-a O2 Difference 218.0 Respiratory Index 0.7 Hgb O2 Saturation Glucose 90 Lactate 0.8 Vent Mode Mechanical Rate FiO2 80.0 Tidal Volume PEEP Sodium 130 L 128.0 L Potassium 3.3 L Chloride 95 L 100.0 Carbon Dioxide 20 L Anion Gap 18 BUN 43 H Creatinine 1.8 H Est GFR ( Amer) 48 Est GFR (Non-Af Amer) 40 POC Glucose (mg/dL) Random Glucose 95 Hemoglobin A1c Calcium 7.9 L Phosphorus Magnesium Total Bilirubin 0.5 AST 56 ALT 35 Alkaline Phosphatase 178 H D Troponin I < 0.0120 NT-Pro-B Natriuret Pep 216 Total Protein 7.0 Albumin 3.2 L Globulin 3.9 Albumin/Globulin Ratio 0.8 L Triglycerides 263 H Cholesterol 121 LDL Cholesterol Direct 42 HDL Cholesterol 15 L Lipase 32 Prolactin Arterial Blood Potassium 2.9 L Urine Color Connie Urine Clarity Hazy Urine pH 5.0 Ur Specific [place] 1.016 Urine Protein 2+ H Urine Glucose (UA) Normal Urine Ketones Negative Urine Blood 2+ H Urine Nitrate Negative Urine Bilirubin Negative Urine Urobilinogen Normal Ur Leukocyte Esterase Trace Urine WBC (Auto) 340 H Urine RBC (Auto) 6 H Ur Squamous Epith Cells 1 Urine Bacteria Many H Urine Opiates Screen Urine Methadone Screen Ur Barbiturates Screen Ur Phencyclidine Scrn Ur Amphetamines Screen U Benzodiazepines Scrn U Oth Cocaine Metabols U Cannabinoids Screen Blood Type Antibody Screen 07/21/18 07/21/18 07/21/18 20:31 21:25 22:03 WBC RBC Hgb Hct MCV MCH MCHC RDW Plt Count MPV Neut % (Auto) Lymph % (Auto) [place] % (Auto) Eos % (Auto) Baso % (Auto) Neut # (Auto) Lymph # (Auto) [place] # (Auto) Eos # (Auto) Baso # (Auto) Neutrophils % (Manual) Band Neutrophils % Lymphocytes % (Manual) Monocytes % (Manual) Platelet Estimate Polychromasia Hypochromasia (manual) PT INR APTT Puncture Site pCO2 pO2 HCO3 ABG pH ABG Total CO2 ABG O2 Saturation ABG Base Excess ABG Hemoglobin ABG Carboxyhemoglobin POC ABG HHb (Measured) ABG Methemoglobin Flaco Test ABG Potassium A-a O2 Difference Respiratory Index Hgb O2 Saturation Glucose Lactate Vent Mode Mechanical Rate FiO2 Tidal Volume PEEP Sodium Potassium Chloride Carbon Dioxide Anion Gap BUN Creatinine Est GFR ( Amer) Est GFR (Non-Af Amer) POC Glucose (mg/dL) Random Glucose Hemoglobin A1c 8.9 H Calcium Phosphorus Magnesium Total Bilirubin AST ALT Alkaline Phosphatase Troponin I NT-Pro-B Natriuret Pep Total Protein Albumin Globulin Albumin/Globulin Ratio Triglycerides Cholesterol LDL Cholesterol Direct HDL Cholesterol Lipase Prolactin Arterial Blood Potassium Urine Color Urine Clarity Urine pH Ur Specific [place] Urine Protein Urine Glucose (UA) Urine Ketones Urine Blood Urine Nitrate Urine Bilirubin Urine Urobilinogen Ur Leukocyte Esterase Urine WBC (Auto) Urine RBC (Auto) Ur Squamous Epith Cells Urine Bacteria Urine Opiates Screen Negative Urine Methadone Screen Negative Ur Barbiturates Screen Negative Ur Phencyclidine Scrn Negative Ur Amphetamines Screen Negative U Benzodiazepines Scrn Negative U Oth Cocaine Metabols Negative U Cannabinoids Screen Negative Blood Type O POSITIVE Antibody Screen Negative 07/22/18 07/22/18 07/22/18 00:19 05:02 05:46 WBC RBC Hgb Hct MCV MCH MCHC RDW Plt Count MPV Neut % (Auto) Lymph % (Auto) [place] % (Auto) Eos % (Auto) Baso % (Auto) Neut # (Auto) Lymph # (Auto) [place] # (Auto) Eos # (Auto) Baso # (Auto) Neutrophils % (Manual) Band Neutrophils % Lymphocytes % (Manual) Monocytes % (Manual) Platelet Estimate Polychromasia Hypochromasia (manual) PT INR APTT Puncture Site L rad pCO2 28 L pO2 183 H HCO3 20.6 L ABG pH 7.42 ABG Total CO2 19.1 L ABG O2 Saturation 95.9 ABG Base Excess -5.5 L ABG Hemoglobin 8.0 L ABG Carboxyhemoglobin 0 L POC ABG HHb (Measured) 4.1 ABG Methemoglobin 0.0 Flaco Test Pos ABG Potassium A-a O2 Difference 67.0 Respiratory Index 0.4 Hgb O2 Saturation 95.9 Glucose Lactate Vent Mode Prvc Mechanical Rate 16 FiO2 40.0 Tidal Volume 500 PEEP 5 Sodium Potassium Chloride Carbon Dioxide Anion Gap BUN Creatinine Est GFR ( Amer) Est GFR (Non-Af Amer) POC Glucose (mg/dL) 128 H 99 Random Glucose Hemoglobin A1c Calcium Phosphorus Magnesium Total Bilirubin AST ALT Alkaline Phosphatase Troponin I NT-Pro-B Natriuret Pep Total Protein Albumin Globulin Albumin/Globulin Ratio Triglycerides Cholesterol LDL Cholesterol Direct HDL Cholesterol Lipase Prolactin Arterial Blood Potassium Urine Color Urine Clarity Urine pH Ur Specific [place] Urine Protein Urine Glucose (UA) Urine Ketones Urine Blood Urine Nitrate Urine Bilirubin Urine Urobilinogen Ur Leukocyte Esterase Urine WBC (Auto) Urine RBC (Auto) Ur Squamous Epith Cells Urine Bacteria Urine Opiates Screen Urine Methadone Screen Ur Barbiturates Screen Ur Phencyclidine Scrn Ur Amphetamines Screen U Benzodiazepines Scrn U Oth Cocaine Metabols U Cannabinoids Screen Blood Type Antibody Screen 07/22/18 07/22/18 07/22/18 05:56 05:56 11:43 WBC 11.9 H RBC 2.91 L Hgb 8.4 L Hct 25.4 L MCV 87.3 MCH 28.7 MCHC 32.8 L RDW 13.8 Plt Count 196 MPV 11.0 Neut % (Auto) 84.1 H Lymph % (Auto) 5.6 L [place] % (Auto) 9.3 Eos % (Auto) 0.3 Baso % (Auto) 0.7 Neut # (Auto) 10.0 H Lymph # (Auto) 0.7 L [place] # (Auto) 1.1 H Eos # (Auto) 0.0 Baso # (Auto) 0.1 Neutrophils % (Manual) 79 H Band Neutrophils % 4 H Lymphocytes % (Manual) 8 L Monocytes % (Manual) 9 Platelet Estimate Normal Polychromasia Slight Hypochromasia (manual) Slight PT INR APTT Puncture Site pCO2 pO2 HCO3 ABG pH ABG Total CO2 ABG O2 Saturation ABG Base Excess ABG Hemoglobin ABG Carboxyhemoglobin POC ABG HHb (Measured) ABG Methemoglobin Flaco Test ABG Potassium A-a O2 Difference Respiratory Index Hgb O2 Saturation Glucose Lactate Vent Mode Mechanical Rate FiO2 Tidal Volume PEEP Sodium 131 L Potassium 3.5 L Chloride 102 Carbon Dioxide 17 L Anion Gap 15 BUN 45 H Creatinine 1.6 H Est GFR ( Amer) 55 Est GFR (Non-Af Amer) 45 POC Glucose (mg/dL) 63 L Random Glucose 97 Hemoglobin A1c Calcium 7.1 L Phosphorus 5.0 H Magnesium 2.1 Total Bilirubin 0.3 AST 43 ALT 32 Alkaline Phosphatase 136 H D Troponin I NT-Pro-B Natriuret Pep Total Protein 5.6 L Albumin 2.5 L D Globulin 3.1 Albumin/Globulin Ratio 0.8 L Triglycerides Cholesterol LDL Cholesterol Direct HDL Cholesterol Lipase Prolactin 12.9 Arterial Blood Potassium Urine Color Urine Clarity Urine pH Ur Specific [place] Urine Protein Urine Glucose (UA) Urine Ketones Urine Blood Urine Nitrate Urine Bilirubin Urine Urobilinogen Ur Leukocyte Esterase Urine WBC (Auto) Urine RBC (Auto) Ur Squamous Epith Cells Urine Bacteria Urine Opiates Screen Urine Methadone Screen Ur Barbiturates Screen Ur Phencyclidine Scrn Ur Amphetamines Screen U Benzodiazepines Scrn U Oth Cocaine Metabols U Cannabinoids Screen Blood Type Antibody Screen 07/22/18 07/22/18 11:44 12:22 WBC RBC Hgb Hct MCV MCH MCHC RDW Plt Count MPV Neut % (Auto) Lymph % (Auto) [place] % (Auto) Eos % (Auto) Baso % (Auto) Neut # (Auto) Lymph # (Auto) [place] # (Auto) Eos # (Auto) Baso # (Auto) Neutrophils % (Manual) Band Neutrophils % Lymphocytes % (Manual) Monocytes % (Manual) Platelet Estimate Polychromasia Hypochromasia (manual) PT INR APTT Puncture Site pCO2 pO2 HCO3 ABG pH ABG Total CO2 ABG O2 Saturation ABG Base Excess ABG Hemoglobin ABG Carboxyhemoglobin POC ABG HHb (Measured) ABG Methemoglobin Flaco Test ABG Potassium A-a O2 Difference Respiratory Index Hgb O2 Saturation Glucose Lactate Vent Mode Mechanical Rate FiO2 Tidal Volume PEEP Sodium Potassium Chloride Carbon Dioxide Anion Gap BUN Creatinine Est GFR ( Amer) Est GFR (Non-Af Amer) POC Glucose (mg/dL) 59 L 163 H Random Glucose Hemoglobin A1c Calcium Phosphorus Magnesium Total Bilirubin AST ALT Alkaline Phosphatase Troponin I NT-Pro-B Natriuret Pep Total Protein Albumin Globulin Albumin/Globulin Ratio Triglycerides Cholesterol LDL Cholesterol Direct HDL Cholesterol Lipase Prolactin Arterial Blood Potassium Urine Color Urine Clarity Urine pH Ur Specific [place] Urine Protein Urine Glucose (UA) Urine Ketones Urine Blood Urine Nitrate Urine Bilirubin Urine Urobilinogen Ur Leukocyte Esterase Urine WBC (Auto) Urine RBC (Auto) Ur Squamous Epith Cells Urine Bacteria Urine Opiates Screen Urine Methadone Screen Ur Barbiturates Screen Ur Phencyclidine Scrn Ur Amphetamines Screen U Benzodiazepines Scrn U Oth Cocaine Metabols U Cannabinoids Screen Blood Type Antibody Screen Assessment & Plan (1) Toxic metabolic encephalopathy Assessment and Plan: Likely secondary to infection, and respiratory distress. No focal neurological deficits. Unlikely to be a stroke. Continue current medical management treating underlying cause. Consider EEG if the patient does not improve. No need for an AED at this time. Thank you for this consultation. Status: Acute
[2018-07-22] MEDS: Vancomycin 1 gm/NS 200 ml 1 GM/200 ML BAG IVPB SCH (20:05)
[2018-07-23] MEDS: (Novolin R) Insulin Human Regular 100 units/ml vial SC SCH ×6 (00:10→21:30)
[2018-07-23] MEDS: Piperacill/Tazo 2.25gm in Dex 2.25 GM/50 ML BAG IVPB SCH ×4 (05:00→21:59)
[2018-07-23 06:36] LABS: BASO # 0.2 K/uL (0.0-0.2); BASO % 1.1 % (0.0-2.0); EOS % 0.2 % (0.0-4.0); HEMOGLOBIN 9.1 g/dL (12.0-18.0); LYMPH % 5.9 % (20.0-40.0); MEAN CELL VOLUME 87.1 fL (80.0-94.0); MEAN CORPUSCULAR HEMOGLOBIN 29.1 pg (27.0-31.0); MEAN CORPUSCULAR HGB CONC 33.4 g/dL (33.0-37.0); MEAN PLATELET VOLUME 10.2 fL (7.2-11.7); MONO # 1.5 K/uL (0.0-0.8); MONO % 9.2 % (0.0-10.0); NEUT # 13.8 K/uL (1.8-7.0); NEUT % 83.6 % (50.0-75.0); PLATELET COUNT 321 K/uL (130-400); RBC 3.12 Mil/uL (4.40-5.90); RED CELL DISTRIBUTION WIDTH 14.3 % (11.5-14.5); WHITE BLOOD COUNT 16.5 K/uL (4.8-10.8)
[2018-07-23 07:00] LABS: ALB/GLOB RATIO 0.8 (1.0-2.1); ALBUMIN 2.9 g/dL (3.5-5.0); ALT/SGPT 36 U/L (21-72); AST/SGOT 66 U/L (17-59); BLOOD UREA NITROGEN 31 mg/dL (9-20); CALCIUM 7.7 mg/dl (8.6-10.4); GFR NON-AFRICAN AMERICAN 58
[2018-07-23] MEDS ORDERED: Potassium Chloride 20 mEq/15 ml LIQ UD PO ONE (07:28)
--- NOTE | 2018-07-23 07:46 | CP.CCUPN ---
<Nan Osman - Last Filed: 07/23/18 12:50> CCU Subjective - Physician Review Events Since Last Encounter (Free Text): 07/23/18 07:40 no over night events reported Subjective (Free Text): 07/23/18 07:41 Patient was seen and examined this morning. He is saturating well on room air. He is lethargic. He is alert and oriented. He is able to follow commands. He is complaining of leg pain. Critical Care Time Spent (in minutes): 35 CCU Objective - Vital Signs / Intake & Output Vital Signs (Last 4 hours): Vital Signs Temp Pulse Resp BP Pulse Ox 07/23/18 06:00 94 H 26 H 100 07/23/18 05:46 94 H 26 H 185/78 H 95 07/23/18 05:00 94 H 19 97 07/23/18 04:47 94 H 27 H 142/52 L 97 07/23/18 04:00 99.7 F H 95 H 14 07/23/18 03:46 100 H 12 177/84 H Intake and Output (Last 8hrs): Intake & Output 07/22/18 07/23/18 07/23/18 22:59 06:59 14:59 Intake Total 1180 250 Output Total 740 950 Balance 440 -700 Weight 189 lb Intake: Intake, IV Amount 350 100 Right Forearm 300 100 Right Wrist 50 Oral 830 150 Output: Urine 740 950 Urethral (Jin) 740 Urine, Voided 0 950 - Physical Exam Head: Positive for: Atraumatic, Normocephalic Pupils: Positive for: PERRL Extroacular Muscles: Positive for: EOMI Conjunctiva: Positive for: Normal Mouth: Positive for: Moist Mucous Membranes Nose (External): Positive for: Lesions (L nasal cartilage erosion, not acute ) Respiratory/Chest: Positive for: Clear to Auscultation, Good Air Exchange. Negative for: Respiratory Distress, Accessory Muscle Use Cardiovascular: Positive for: Regular Rate and Rhythm ( ) Abdomen: Positive for: Normal Bowel Sounds. 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) Neurological: Positive for: GCS=15, CN II-XII Intact Skin: Positive for: Warm, Dry, Normal Color Psychiatric: Positive for: Alert - Medications Active Medications: Active Medications Generic Name Dose Route Start Last Admin Trade Name Freq PRN Reason Stop Dose Admin Aspirin 81 mg 07/23/18 10:00 Ecotrin PO DAILY JASPREET Dextrose 0 ml 07/22/18 00:04 07/22/18 11:53 Dextrose 50% Inj IV 50 ml STAT PRN Administration Hypoglycemia Protocol Protocol Dextrose 0 gm 07/22/18 00:04 Glutose 15 PO ONCE PRN Hypoglycemia Protocol Protocol Glucagon 0 mg 07/22/18 00:04 Glucagen Diagnostic Kit IM STAT PRN Hypoglycemia Protocol Protocol Heparin Sodium (Porcine) 5,000 units 07/22/18 10:00 07/22/18 21:53 Heparin SC 5,000 units Q12 JASPREET Administration Levetiracetam 1,000 mg/ 110 mls @ 420 mls/hr 07/21/18 21:45 07/22/18 21:55 Dextrose IVPB 420 mls/hr Q12H JASPREET Administration Dextrose 1,000 mls @ 0 mls/hr 07/22/18 00:04 Dextrose 5% In Water 1000 Ml IV .Q0M PRN Hypoglycemia Protocol Protocol Per Protocol Piperacillin Sod/Tazobactam Sod 2.25 gm in 50 mls @ 100 mls/hr 07/22/18 04:00 07/23/18 05:00 Zosyn 2.25 Gm Iv Premix IVPB 100 mls/hr Q6H JASPREET Administration Protocol Vancomycin/Sodium Chloride 1 gm in 200 mls @ 166.6 mls/hr 07/22/18 21:00 07/22/18 20:05 Vancomycin 1 Gm/Ns 200 Ml IVPB 07/27/18 21:01 166.6 mls/hr Q12H JASPREET Administration Protocol Insulin Human Regular 0 unit 07/23/18 07:30 Novolin R SC ACHS JAPSREET Protocol Pantoprazole Sodium 40 mg 07/22/18 10:00 07/22/18 10:23 Protonix Inj IVP 40 mg DAILY JASPREET Administration - Patient Studies Lab Studies: Microbiology Studies 07/21/18 21:00 S.aureus & Coag-Neg Staph PNA FISH - Final Blood Blood Culture - Preliminary Gram Positive Cocci Gram Stain - Final 07/21/18 20:30 Blood Culture - Preliminary Blood Gram Positive Cocci Gram Stain - Final 07/21/18 06:00 MRSA Culture (Admit) - Final Naris MRSA NOT DETECTED Lab Studies 07/23/18 07/23/18 07/23/18 Range/Units 06:28 06:28 00:15 WBC 16.5 H (4.8-10.8) K/uL RBC 3.12 L (4.40-5.90) Mil/uL Hgb 9.1 L (12.0-18.0) g/dL Hct 27.2 L (35.0-51.0) % MCV 87.1 (80.0-94.0) fL MCH 29.1 (27.0-31.0) pg MCHC 33.4 (33.0-37.0) g/dL RDW 14.3 (11.5-14.5) % Plt Count 321 D (130-400) K/uL MPV 10.2 (7.2-11.7) fL Neut % (Auto) 83.6 H (50.0-75.0) % Lymph % (Auto) 5.9 L (20.0-40.0) % Twiggs % (Auto) 9.2 (0.0-10.0) % Eos % (Auto) 0.2 (0.0-4.0) % Baso % (Auto) 1.1 (0.0-2.0) % Neut # (Auto) 13.8 H (1.8-7.0) K/uL Lymph # (Auto) 1.0 (1.0-4.3) K/uL Twiggs # (Auto) 1.5 H (0.0-0.8) K/uL Eos # (Auto) 0.0 (0.0-0.7) K/uL Baso # (Auto) 0.2 (0.0-0.2) K/uL Neutrophils % (Manual) (50-75) % Band Neutrophils % (0-2) % Lymphocytes % (Manual) (20-40) % Monocytes % (Manual) (0-10) % Platelet Estimate (NORMAL) Polychromasia Hypochromasia (manual) Puncture Site pCO2 (35-45) mm/Hg pO2 (80-100) mm/Hg HCO3 (21-28) mmol/L ABG pH (7.35-7.45) ABG Total CO2 (22-28) mmol/L ABG O2 Saturation (95-98) % ABG Base Excess (-2.0-3.0) mmol/L ABG Hemoglobin (11.7-17.4) g/dL ABG Carboxyhemoglobin (0.5-1.5) % POC ABG HHb (Measured) (0.0-5.0) % ABG Methemoglobin (0.0-3.0) % Flaco Test A-a O2 Difference mm/Hg Respiratory Index Hgb O2 Saturation (95.0-98.0) % Vent Mode Mechanical Rate FiO2 % Tidal Volume PEEP Sodium 133 (132-148) mmol/L Potassium 3.4 L (3.6-5.2) mmol/L Chloride 103 (98-107) mmol/L Carbon Dioxide 20 L (22-30) mmol/L Anion Gap 14 (10-20) BUN 31 H (9-20) mg/dL Creatinine 1.3 (0.8-1.5) mg/dL Est GFR ( Amer) > 60 Est GFR (Non-Af Amer) 58 POC Glucose (mg/dL) 121 H (65-110) mg/dL Random Glucose 113 H (75-110) mg/dL Calcium 7.7 L (8.6-10.4) mg/dl Phosphorus 2.4 L (2.5-4.5) mg/dL Magnesium 2.3 (1.6-2.3) mg/dL Total Bilirubin 0.5 (0.2-1.3) mg/dL AST 66 H D (17-59) U/L ALT 36 (21-72) U/L Alkaline Phosphatase 173 H D (38-126) U/L Total Protein 6.5 (6.3-8.3) g/dL Albumin 2.9 L (3.5-5.0) g/dL Globulin 3.6 (2.2-3.9) gm/dL Albumin/Globulin Ratio 0.8 L (1.0-2.1) Procalcitonin (0.19-0.49) NG/ML Prolactin (3.7-17.9) ng/mL 07/22/18 07/22/18 07/22/18 Range/Units 21:05 16:20 12:22 WBC (4.8-10.8) K/uL RBC (4.40-5.90) Mil/uL Hgb (12.0-18.0) g/dL Hct (35.0-51.0) % MCV (80.0-94.0) fL MCH (27.0-31.0) pg MCHC (33.0-37.0) g/dL RDW (11.5-14.5) % Plt Count (130-400) K/uL MPV (7.2-11.7) fL Neut % (Auto) (50.0-75.0) % Lymph % (Auto) (20.0-40.0) % Twiggs % (Auto) (0.0-10.0) % Eos % (Auto) (0.0-4.0) % Baso % (Auto) (0.0-2.0) % Neut # (Auto) (1.8-7.0) K/uL Lymph # (Auto) (1.0-4.3) K/uL Twiggs # (Auto) (0.0-0.8) K/uL Eos # (Auto) (0.0-0.7) K/uL Baso # (Auto) (0.0-0.2) K/uL Neutrophils % (Manual) (50-75) % Band Neutrophils % (0-2) % Lymphocytes % (Manual) (20-40) % Monocytes % (Manual) (0-10) % Platelet Estimate (NORMAL) Polychromasia Hypochromasia (manual) Puncture Site pCO2 (35-45) mm/Hg pO2 (80-100) mm/Hg HCO3 (21-28) mmol/L ABG pH (7.35-7.45) ABG Total CO2 (22-28) mmol/L ABG O2 Saturation (95-98) % ABG Base Excess (-2.0-3.0) mmol/L ABG Hemoglobin (11.7-17.4) g/dL ABG Carboxyhemoglobin (0.5-1.5) % POC ABG HHb (Measured) (0.0-5.0) % ABG Methemoglobin (0.0-3.0) % Flaco Test A-a O2 Difference mm/Hg Respiratory Index Hgb O2 Saturation (95.0-98.0) % Vent Mode Mechanical Rate FiO2 % Tidal Volume PEEP Sodium (132-148) mmol/L Potassium (3.6-5.2) mmol/L Chloride (98-107) mmol/L Carbon Dioxide (22-30) mmol/L Anion Gap (10-20) BUN (9-20) mg/dL Creatinine (0.8-1.5) mg/dL Est GFR ( Amer) Est GFR (Non-Af Amer) POC Glucose (mg/dL) 111 H 95 163 H (65-110) mg/dL Random Glucose (75-110) mg/dL Calcium (8.6-10.4) mg/dl Phosphorus (2.5-4.5) mg/dL Magnesium (1.6-2.3) mg/dL Total Bilirubin (0.2-1.3) mg/dL AST (17-59) U/L ALT (21-72) U/L Alkaline Phosphatase (38-126) U/L Total Protein (6.3-8.3) g/dL Albumin (3.5-5.0) g/dL Globulin (2.2-3.9) gm/dL Albumin/Globulin Ratio (1.0-2.1) Procalcitonin (0.19-0.49) NG/ML Prolactin (3.7-17.9) ng/mL 07/22/18 07/22/18 07/22/18 Range/Units 11:44 11:43 05:56 WBC (4.8-10.8) K/uL RBC (4.40-5.90) Mil/uL Hgb (12.0-18.0) g/dL Hct (35.0-51.0) % MCV (80.0-94.0) fL MCH (27.0-31.0) pg MCHC (33.0-37.0) g/dL RDW (11.5-14.5) % Plt Count (130-400) K/uL MPV (7.2-11.7) fL Neut % (Auto) (50.0-75.0) % Lymph % (Auto) (20.0-40.0) % Twiggs % (Auto) (0.0-10.0) % Eos % (Auto) (0.0-4.0) % Baso % (Auto) (0.0-2.0) % Neut # (Auto) (1.8-7.0) K/uL Lymph # (Auto) (1.0-4.3) K/uL Twiggs # (Auto) (0.0-0.8) K/uL Eos # (Auto) (0.0-0.7) K/uL Baso # (Auto) (0.0-0.2) K/uL Neutrophils % (Manual) (50-75) % Band Neutrophils % (0-2) % Lymphocytes % (Manual) (20-40) % Monocytes % (Manual) (0-10) % Platelet Estimate (NORMAL) Polychromasia Hypochromasia (manual) Puncture Site pCO2 (35-45) mm/Hg pO2 (80-100) mm/Hg HCO3 (21-28) mmol/L ABG pH (7.35-7.45) ABG Total CO2 (22-28) mmol/L ABG O2 Saturation (95-98) % ABG Base Excess (-2.0-3.0) mmol/L ABG Hemoglobin (11.7-17.4) g/dL ABG Carboxyhemoglobin (0.5-1.5) % POC ABG HHb (Measured) (0.0-5.0) % ABG Methemoglobin (0.0-3.0) % Flaco Test A-a O2 Difference mm/Hg Respiratory Index Hgb O2 Saturation (95.0-98.0) % Vent Mode Mechanical Rate FiO2 % Tidal Volume PEEP Sodium 131 L (132-148) mmol/L Potassium 3.5 L (3.6-5.2) mmol/L Chloride 102 (98-107) mmol/L Carbon Dioxide 17 L (22-30) mmol/L Anion Gap 15 (10-20) BUN 45 H (9-20) mg/dL Creatinine 1.6 H (0.8-1.5) mg/dL Est GFR ( Amer) 55 Est GFR (Non-Af Amer) 45 POC Glucose (mg/dL) 59 L 63 L (65-110) mg/dL Random Glucose 97 (75-110) mg/dL Calcium 7.1 L (8.6-10.4) mg/dl Phosphorus 5.0 H (2.5-4.5) mg/dL Magnesium 2.1 (1.6-2.3) mg/dL Total Bilirubin 0.3 (0.2-1.3) mg/dL AST 43 (17-59) U/L ALT 32 (21-72) U/L Alkaline Phosphatase 136 H D (38-126) U/L Total Protein 5.6 L (6.3-8.3) g/dL Albumin 2.5 L D (3.5-5.0) g/dL Globulin 3.1 (2.2-3.9) gm/dL Albumin/Globulin Ratio 0.8 L (1.0-2.1) Procalcitonin (0.19-0.49) NG/ML Prolactin 12.9 (3.7-17.9) ng/mL 07/22/18 07/22/18 07/22/18 Range/Units 05:56 05:56 05:46 WBC (4.8-10.8) K/uL RBC (4.40-5.90) Mil/uL Hgb (12.0-18.0) g/dL Hct (35.0-51.0) % MCV (80.0-94.0) fL MCH (27.0-31.0) pg MCHC (33.0-37.0) g/dL RDW (11.5-14.5) % Plt Count (130-400) K/uL MPV (7.2-11.7) fL Neut % (Auto) (50.0-75.0) % Lymph % (Auto) (20.0-40.0) % Twiggs % (Auto) (0.0-10.0) % Eos % (Auto) (0.0-4.0) % Baso % (Auto) (0.0-2.0) % Neut # (Auto) (1.8-7.0) K/uL Lymph # (Auto) (1.0-4.3) K/uL Twiggs # (Auto) (0.0-0.8) K/uL Eos # (Auto) (0.0-0.7) K/uL Baso # (Auto) (0.0-0.2) K/uL Neutrophils % (Manual) 79 H (50-75) % Band Neutrophils % 4 H (0-2) % Lymphocytes % (Manual) 8 L (20-40) % Monocytes % (Manual) 9 (0-10) % Platelet Estimate Normal (NORMAL) Polychromasia Slight Hypochromasia (manual) Slight Puncture Site L rad pCO2 28 L (35-45) mm/Hg pO2 183 H (80-100) mm/Hg HCO3 20.6 L (21-28) mmol/L ABG pH 7.42 (7.35-7.45) ABG Total CO2 19.1 L (22-28) mmol/L ABG O2 Saturation 95.9 (95-98) % ABG Base Excess -5.5 L (-2.0-3.0) mmol/L ABG Hemoglobin 8.0 L (11.7-17.4) g/dL ABG Carboxyhemoglobin 0 L (0.5-1.5) % POC ABG HHb (Measured) 4.1 (0.0-5.0) % ABG Methemoglobin 0.0 (0.0-3.0) % Flaco Test Pos A-a O2 Difference 67.0 mm/Hg Respiratory Index 0.4 Hgb O2 Saturation 95.9 (95.0-98.0) % Vent Mode Prvc Mechanical Rate 16 FiO2 40.0 % Tidal Volume 500 PEEP 5 Sodium (132-148) mmol/L Potassium (3.6-5.2) mmol/L Chloride (98-107) mmol/L Carbon Dioxide (22-30) mmol/L Anion Gap (10-20) BUN (9-20) mg/dL Creatinine (0.8-1.5) mg/dL Est GFR ( Amer) Est GFR (Non-Af Amer) POC Glucose (mg/dL) (65-110) mg/dL Random Glucose (75-110) mg/dL Calcium (8.6-10.4) mg/dl Phosphorus (2.5-4.5) mg/dL Magnesium (1.6-2.3) mg/dL Total Bilirubin (0.2-1.3) mg/dL AST (17-59) U/L ALT (21-72) U/L Alkaline Phosphatase (38-126) U/L Total Protein (6.3-8.3) g/dL Albumin (3.5-5.0) g/dL Globulin (2.2-3.9) gm/dL Albumin/Globulin Ratio (1.0-2.1) Procalcitonin 14.74 H (0.19-0.49) NG/ML Prolactin (3.7-17.9) ng/mL 07/22/18 07/22/18 07/21/18 Range/Units 05:02 00:19 20:07 WBC (4.8-10.8) K/uL RBC (4.40-5.90) Mil/uL Hgb (12.0-18.0) g/dL Hct (35.0-51.0) % MCV (80.0-94.0) fL MCH (27.0-31.0) pg MCHC (33.0-37.0) g/dL RDW (11.5-14.5) % Plt Count (130-400) K/uL MPV (7.2-11.7) fL Neut % (Auto) (50.0-75.0) % Lymph % (Auto) (20.0-40.0) % Twiggs % (Auto) (0.0-10.0) % Eos % (Auto) (0.0-4.0) % Baso % (Auto) (0.0-2.0) % Neut # (Auto) (1.8-7.0) K/uL Lymph # (Auto) (1.0-4.3) K/uL Tw[place]gs # (Auto) (0.0-0.8) K/uL Eos # (Auto) (0.0-0.7) K/uL Baso # (Auto) (0.0-0.2) K/uL Neutrophils % (Manual) (50-75) % Band Neutrophils % (0-2) % Lymphocytes % (Manual) (20-40) % Monocytes % (Manual) (0-10) % Platelet Estimate (NORMAL) Polychromasia Hypochromasia (manual) Puncture Site pCO2 (35-45) mm/Hg pO2 (80-100) mm/Hg HCO3 (21-28) mmol/L ABG pH (7.35-7.45) ABG Total CO2 (22-28) mmol/L ABG O2 Saturation (95-98) % ABG Base Excess (-2.0-3.0) mmol/L ABG Hemoglobin (11.7-17.4) g/dL ABG Carboxyhemoglobin (0.5-1.5) % POC ABG HHb (Measured) (0.0-5.0) % ABG Methemoglobin (0.0-3.0) % Flaco Test A-a O2 Difference mm/Hg Respiratory Index Hgb O2 Saturation (95.0-98.0) % Vent Mode Mechanical Rate FiO2 % Tidal Volume PEEP Sodium (132-148) mmol/L Potassium (3.6-5.2) mmol/L Chloride (98-107) mmol/L Carbon Dioxide (22-30) mmol/L Anion Gap (10-20) BUN (9-20) mg/dL Creatinine (0.8-1.5) mg/dL Est GFR ( Amer) Est GFR (Non-Af Amer) POC Glucose (mg/dL) 99 128 H 82 (65-110) mg/dL Random Glucose (75-110) mg/dL Calcium (8.6-10.4) mg/dl Phosphorus (2.5-4.5) mg/dL Magnesium (1.6-2.3) mg/dL Total Bilirubin (0.2-1.3) mg/dL AST (17-59) U/L ALT (21-72) U/L Alkaline Phosphatase (38-126) U/L Total Protein (6.3-8.3) g/dL Albumin (3.5-5.0) g/dL Globulin (2.2-3.9) gm/dL Albumin/Globulin Ratio (1.0-2.1) Procalcitonin (0.19-0.49) NG/ML Prolactin (3.7-17.9) ng/mL Laboratory Results - last 24 hr 07/21/18 07/22/18 07/22/18 20:07 00:19 05:02 WBC RBC Hgb Hct MCV MCH MCHC RDW Plt Count MPV Neut % (Auto) Lymph % (Auto) Twiggs % (Auto) Eos % (Auto) Baso % (Auto) Neut # (Auto) Lymph # (Auto) Tw[place]gs # (Auto) Eos # (Auto) Baso # (Auto) Neutrophils % (Manual) Band Neutrophils % Lymphocytes % (Manual) Monocytes % (Manual) Platelet Estimate Polychromasia Hypochromasia (manual) Puncture Site pCO2 pO2 HCO3 ABG pH ABG Total CO2 ABG O2 Saturation ABG Base Excess ABG Hemoglobin ABG Carboxyhemoglobin POC ABG HHb (Measured) ABG Methemoglobin Flaco Test A-a O2 Difference Respiratory Index Hgb O2 Saturation Vent Mode Mechanical Rate FiO2 Tidal Volume PEEP Sodium Potassium Chloride Carbon Dioxide Anion Gap BUN Creatinine Est GFR ( Amer) Est GFR (Non-Af Amer) POC Glucose (mg/dL) 82 128 H 99 Random Glucose Calcium Phosphorus Magnesium Total Bilirubin AST ALT Alkaline Phosphatase Total Protein Albumin Globulin Albumin/Globulin Ratio Procalcitonin Prolactin 07/22/18 07/22/18 07/22/18 05:46 05:56 05:56 WBC RBC Hgb Hct MCV MCH MCHC RDW Plt Count MPV Neut % (Auto) Lymph % (Auto) Twiggs % (Auto) Eos % (Auto) Baso % (Auto) Neut # (Auto) Lymph # (Auto) Twiggs # (Auto) Eos # (Auto) Baso # (Auto) Neutrophils % (Manual) 79 H Band Neutrophils % 4 H Lymphocytes % (Manual) 8 L Monocytes % (Manual) 9 Platelet Estimate Normal Polychromasia Slight Hypochromasia (manual) Slight Puncture Site L rad pCO2 28 L pO2 183 H HCO3 20.6 L ABG pH 7.42 ABG Total CO2 19.1 L ABG O2 Saturation 95.9 ABG Base Excess -5.5 L ABG Hemoglobin 8.0 L ABG Carboxyhemoglobin 0 L POC ABG HHb (Measured) 4.1 ABG Methemoglobin 0.0 Flaco Test Pos A-a O2 Difference 67.0 Respiratory Index 0.4 Hgb O2 Saturation 95.9 Vent Mode Prvc Mechanical Rate 16 FiO2 40.0 Tidal Volume 500 PEEP 5 Sodium Potassium Chloride Carbon Dioxide Anion Gap BUN Creatinine Est GFR ( Amer) Est GFR (Non-Af Amer) POC Glucose (mg/dL) Random Glucose Calcium Phosphorus Magnesium Total Bilirubin AST ALT Alkaline Phosphatase Total Protein Albumin Globulin Albumin/Globulin Ratio Procalcitonin 14.74 H Prolactin 07/22/18 07/22/18 07/22/18 05:56 11:43 11:44 WBC RBC Hgb Hct MCV MCH MCHC RDW Plt Count MPV Neut % (Auto) Lymph % (Auto) Twiggs % (Auto) Eos % (Auto) Baso % (Auto) Neut # (Auto) Lymph # (Auto) Tw[place]gs # (Auto) Eos # (Auto) Baso # (Auto) Neutrophils % (Manual) Band Neutrophils % Lymphocytes % (Manual) Monocytes % (Manual) Platelet Estimate Polychromasia Hypochromasia (manual) Puncture Site pCO2 pO2 HCO3 ABG pH ABG Total CO2 ABG O2 Saturation ABG Base Excess ABG Hemoglobin ABG Carboxyhemoglobin POC ABG HHb (Measured) ABG Methemoglobin Flaco Test A-a O2 Difference Respiratory Index Hgb O2 Saturation Vent Mode Mechanical Rate FiO2 Tidal Volume PEEP Sodium 131 L Potassium 3.5 L Chloride 102 Carbon Dioxide 17 L Anion Gap 15 BUN 45 H Creatinine 1.6 H Est GFR ( Amer) 55 Est GFR (Non-Af Amer) 45 POC Glucose (mg/dL) 63 L 59 L Random Glucose 97 Calcium 7.1 L Phosphorus 5.0 H Magnesium 2.1 Total Bilirubin 0.3 AST 43 ALT 32 Alkaline Phosphatase 136 H D Total Protein 5.6 L Albumin 2.5 L D Globulin 3.1 Albumin/Globulin Ratio 0.8 L Procalcitonin Prolactin 12.9 07/22/18 07/22/18 07/22/18 12:22 16:20 21:05 WBC RBC Hgb Hct MCV MCH MCHC RDW Plt Count MPV Neut % (Auto) Lymph % (Auto) Tw[place]gs % (Auto) Eos % (Auto) Baso % (Auto) Neut # (Auto) Lymph # (Auto) [place]gs # (Auto) Eos # (Auto) Baso # (Auto) Neutrophils % (Manual) Band Neutrophils % Lymphocytes % (Manual) Monocytes % (Manual) Platelet Estimate Polychromasia Hypochromasia (manual) Puncture Site pCO2 pO2 HCO3 ABG pH ABG Total CO2 ABG O2 Saturation ABG Base Excess ABG Hemoglobin ABG Carboxyhemoglobin POC ABG HHb (Measured) ABG Methemoglobin Flaco Test A-a O2 Difference Respiratory Index Hgb O2 Saturation Vent Mode Mechanical Rate FiO2 Tidal Volume PEEP Sodium Potassium Chloride Carbon Dioxide Anion Gap BUN Creatinine Est GFR ( Amer) Est GFR (Non-Af Amer) POC Glucose (mg/dL) 163 H 95 111 H Random Glucose Calcium Phosphorus Magnesium Total Bilirubin AST ALT Alkaline Phosphatase Total Protein Albumin Globulin Albumin/Globulin Ratio Procalcitonin Prolactin 07/23/18 07/23/18 07/23/18 00:15 06:28 06:28 WBC 16.5 H RBC 3.12 L Hgb 9.1 L Hct 27.2 L MCV 87.1 MCH 29.1 MCHC 33.4 RDW 14.3 Plt Count 321 D MPV 10.2 Neut % (Auto) 83.6 H Lymph % (Auto) 5.9 L Tw[place]gs % (Auto) 9.2 Eos % (Auto) 0.2 Baso % (Auto) 1.1 Neut # (Auto) 13.8 H Lymph # (Auto) 1.0 Twiggs # (Auto) 1.5 H Eos # (Auto) 0.0 Baso # (Auto) 0.2 Neutrophils % (Manual) Band Neutrophils % Lymphocytes % (Manual) Monocytes % (Manual) Platelet Estimate Polychromasia Hypochromasia (manual) Puncture Site pCO2 pO2 HCO3 ABG pH ABG Total CO2 ABG O2 Saturation ABG Base Excess ABG Hemoglobin ABG Carboxyhemoglobin POC ABG HHb (Measured) ABG Methemoglobin Flaco Test A-a O2 Difference Respiratory Index Hgb O2 Saturation Vent Mode Mechanical Rate FiO2 Tidal Volume PEEP Sodium 133 Potassium 3.4 L Chloride 103 Carbon Dioxide 20 L Anion Gap 14 BUN 31 H Creatinine 1.3 Est GFR ( Amer) > 60 Est GFR (Non-Af Amer) 58 POC Glucose (mg/dL) 121 H Random Glucose 113 H Calcium 7.7 L Phosphorus 2.4 L Magnesium 2.3 Total Bilirubin 0.5 AST 66 H D ALT 36 Alkaline Phosphatase 173 H D Total Protein 6.5 Albumin 2.9 L Globulin 3.6 Albumin/Globulin Ratio 0.8 L Procalcitonin Prolactin Fingerstick Blood Sugar Results: 121 Results Reviewed to Date: Yes Review of Systems - Review of Systems Systems not reviewed;Unavailable: Other (lethargic) Critical Care Progress Note - Extremities/Vascular Does the Patient have a Central Venous Catheter?: No Does the Patient need a Central Venous Catheter?: No Does the Patient have a Jin Catheter?: No Does the Patient need a Jin Catheter?: No - Prophylaxis GI Prophylaxis GI: PPI - Prophylaxis DVT Prophylaxis DVT: Heparin SQ - Nutrition Nutrition: Nutrition Category Date Time Status Liquid Diet [DIET] Diets 07/22/18 Dinner Active Assessment/Plan - Assessment and Plan (Free Text) Assessment: Patient is a 53 yo male with a history of uncontrolled T2DM (s/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 Code stroke was called, and CT head was negative for acute findings. Patient was intubated and placed on sedation. He was successfully extubated <24hrs after admission. Patient's blood cultures are positive for gram pos cocci. Plan: Neuro: - Code stroke - CT head: no acute findings - CTA head and neck: no significant stenoses or abnormalities - EEG pending - PRL wnl (12.9) - Discontinue Keppra - Gabapentin 100 mg PO TID - Neurology consulted (Manda) - PT/OT/ST CV: - Monitor vitals- consider increase antihypertensive if BP continues to be elevated - ASA 81 mg PO daily - Enalapril 20 mg PO daily Pulm: - CXR: no acute findings - Maintain spO2>92%- NC PRN - ABG: acidosis resolved GI: - Regular diet- low carb, 2 g Na Renal: - Elevated BUN, Cr improved - I's & O's - Replete electrolytes PRN - Patient has not voided since Jin removed 07/22- bladder scans and straight cath PRN - CT A/P pending Endo: - A1c 8.9 - Maintain euglycemia - Hypoglycemia protocol - Accuchecks ACHS with medium dose Novolin R ISS Heme: - Hgb (9.1)- baseline - Monitor H&H ID: - Leukocytosis stable- L shift - Tmax 100.4 07/23 12AM - Tylenol 650 mg PO Q6H PRN - Procal 14.74 - Blood Cx 2/2 positive for gram positive cocci - UA: many magda, 340 WBC, trace LE, neg nitrate - Urine Cx no growth - Repeat UA: neg LE, neg nitrate, 4 WBC - Repeat Urine Cx pending - Vancomycin 1 g IV Q12H - Zosyn 2.25 mg IV Q6H Integumentary: - Wound care consulted for L facial erosion Ppx: VTE: Heparin 5000 units Q12H GI: Protonix 40 mg IV daily Code status: full code Case discussed with attending, Dr. Roberto. PGY-1 Nan Osman D.O. <Js Roberto - Last Filed: 07/23/18 18:07> CCU Objective - Vital Signs / Intake & Output Vital Signs (Last 4 hours): Vital Signs Temp Pulse Resp BP Pulse Ox 07/23/18 16:00 99.3 F 96 H 11 L 07/23/18 15:49 86 29 H 174/75 H 07/23/18 15:29 85 25 H 173/79 H 07/23/18 15:05 92 H 25 H 197/88 H 98 07/23/18 15:00 94 H 25 H 99 07/23/18 14:58 195/88 H 07/23/18 14:46 91 H 29 H 195/88 H 99 07/23/18 14:15 90 25 H 194/90 H 98 Intake and Output (Last 8hrs): Intake & Output 07/23/18 07/23/18 07/23/18 06:59 14:59 22:59 Intake Total 250 1900 50 Output Total 950 600 Balance -700 1300 50 Weight 189 lb Intake: Intake, IV Amount 100 350 50 Right Forearm 100 350 50 Oral 150 1550 0 Output: Urine 950 600 Urine, Voided 950 600 Other: # Bowel Movements 0 0 - Medications Active Medications: Active Medications Generic Name Dose Route Start Last Admin Trade Name Freq PRN Reason Stop Dose Admin Acetaminophen 650 mg 07/23/18 08:37 07/23/18 08:51 Tylenol 325mg Tab PO 650 mg Q6 PRN Administration Pain, Mild (1-3) Aspirin 81 mg 07/23/18 10:00 07/23/18 09:41 Ecotrin PO 81 mg DAILY JASPREET Administration Dextrose 0 ml 07/22/18 00:04 07/22/18 11:53 Dextrose 50% Inj IV 50 ml STAT PRN Administration Hypoglycemia Protocol Protocol Dextrose 0 gm 07/22/18 00:04 Glutose 15 PO ONCE PRN Hypoglycemia Protocol Protocol Enalapril Maleate 30 mg 07/24/18 10:00 Vasotec PO DAILY JASPREET Gabapentin 100 mg 07/23/18 14:00 07/23/18 17:24 Neurontin PO 100 mg TID JASPREET Administration Glucagon 0 mg 07/22/18 00:04 Glucagen Diagnostic Kit IM STAT PRN Hypoglycemia Protocol Protocol Heparin Sodium (Porcine) 5,000 units 07/22/18 10:00 07/23/18 09:41 Heparin SC 5,000 units Q12 JASPREET Administration Dextrose 1,000 mls @ 0 mls/hr 07/22/18 00:04 Dextrose 5% In Water 1000 Ml IV .Q0M PRN Hypoglycemia Protocol Protocol Per Protocol Piperacillin Sod/Tazobactam Sod 2.25 gm in 50 mls @ 100 mls/hr 07/22/18 04:00 07/23/18 15:33 Zosyn 2.25 Gm Iv Premix IVPB 100 mls/hr Q6H JASPREET Administration Protocol Vancomycin/Sodium Chloride 1 gm in 200 mls @ 166.6 mls/hr 07/22/18 21:00 07/23/18 08:50 Vancomycin 1 Gm/Ns 200 Ml IVPB 07/27/18 21:01 166.6 mls/hr Q12H JASPREET Administration Protocol Insulin Human Regular 0 unit 07/23/18 07:30 07/23/18 16:50 Novolin R SC 3 units ACHS JASPREET Administration Protocol Metoprolol Succinate 25 mg 07/23/18 18:00 07/23/18 17:19 Toprol Xl PO 25 mg BID JASPREET Administration Pantoprazole Sodium 40 mg 07/22/18 10:00 07/23/18 09:41 Protonix Inj IVP 40 mg DAILY JASPREET Administration - Patient Studies Lab Studies: Microbiology Studies 07/22/18 11:41 Urine Culture - Final Urine,Jin No Growth (<1,000 CFU/ML) 07/21/18 21:00 S.aureus & Coag-Neg Staph PNA FISH - Final Blood Blood Culture - Preliminary Gram Positive Cocci Gram Stain - Final 07/21/18 20:30 Blood Culture - Preliminary Blood Gram Positive Cocci Gram Stain - Final Lab Studies 07/23/18 07/23/18 07/23/18 Range/Units 16:08 11:41 11:23 WBC (4.8-10.8) K/uL RBC (4.40-5.90) Mil/uL Hgb (12.0-18.0) g/dL Hct (35.0-51.0) % MCV (80.0-94.0) fL MCH (27.0-31.0) pg MCHC (33.0-37.0) g/dL RDW (11.5-14.5) % Plt Count (130-400) K/uL MPV (7.2-11.7) fL Neut % (Auto) (50.0-75.0) % Lymph % (Auto) (20.0-40.0) % Twiggs % (Auto) (0.0-10.0) % Eos % (Auto) (0.0-4.0) % Baso % (Auto) (0.0-2.0) % Neut # (Auto) (1.8-7.0) K/uL Lymph # (Auto) (1.0-4.3) K/uL [place] # (Auto) (0.0-0.8) K/uL Eos # (Auto) (0.0-0.7) K/uL Baso # (Auto) (0.0-0.2) K/uL Neutrophils % (Manual) (50-75) % Lymphocytes % (Manual) (20-40) % Monocytes % (Manual) (0-10) % Platelet Estimate (NORMAL) Hypochromasia (manual) Poikilocytosis (manual Anisocytosis (manual) Tear Drop Cells Sodium (132-148) mmol/L Potassium (3.6-5.2) mmol/L Chloride (98-107) mmol/L Carbon Dioxide (22-30) mmol/L Anion Gap (10-20) BUN (9-20) mg/dL Creatinine (0.8-1.5) mg/dL Est GFR ( Amer) Est GFR (Non-Af Amer) POC Glucose (mg/dL) 231 H 235 H (65-110) mg/dL Random Glucose (75-110) mg/dL Calcium (8.6-10.4) mg/dl Phosphorus (2.5-4.5) mg/dL Magnesium (1.6-2.3) mg/dL Total Bilirubin (0.2-1.3) mg/dL AST (17-59) U/L ALT (21-72) U/L Alkaline Phosphatase (38-126) U/L Total Protein (6.3-8.3) g/dL Albumin (3.5-5.0) g/dL Globulin (2.2-3.9) gm/dL Albumin/Globulin Ratio (1.0-2.1) Urine Color Yellow (YELLOW) Urine Clarity Hazy (Clear) Urine pH 5.0 (5.0-8.0) Ur Specific [place] 1.017 (1.003-1.030) Urine Protein 2+ H (NEGATIVE) mg/dL Urine Glucose (UA) 1+ H (Normal) mg/dL Urine Ketones Negative (NEGATIVE) mg/dL Urine Blood 2+ H (NEGATIVE) Urine Nitrate Negative (NEGATIVE) Urine Bilirubin Negative (NEGATIVE) Urine Urobilinogen Normal (0.2-1.0) mg/dL Ur Leukocyte Esterase Neg (Negative) Jana/uL Urine WBC (Auto) 4 (0-5) /hpf Urine RBC (Auto) 10 H (0-3) /hpf 07/23/18 07/23/18 07/23/18 Range/Units 07:39 06:28 06:28 WBC 16.5 H (4.8-10.8) K/uL RBC 3.12 L (4.40-5.90) Mil/uL Hgb 9.1 L (12.0-18.0) g/dL Hct 27.2 L (35.0-51.0) % MCV 87.1 (80.0-94.0) fL MCH 29.1 (27.0-31.0) pg MCHC 33.4 (33.0-37.0) g/dL RDW 14.3 (11.5-14.5) % Plt Count 321 D (130-400) K/uL MPV 10.2 (7.2-11.7) fL Neut % (Auto) 83.6 H (50.0-75.0) % Lymph % (Auto) 5.9 L (20.0-40.0) % [place] % (Auto) 9.2 (0.0-10.0) % Eos % (Auto) 0.2 (0.0-4.0) % Baso % (Auto) 1.1 (0.0-2.0) % Neut # (Auto) 13.8 H (1.8-7.0) K/uL Lymph # (Auto) 1.0 (1.0-4.3) K/uL [place] # (Auto) 1.5 H (0.0-0.8) K/uL Eos # (Auto) 0.0 (0.0-0.7) K/uL Baso # (Auto) 0.2 (0.0-0.2) K/uL Neutrophils % (Manual) 82 H (50-75) % Lymphocytes % (Manual) 7 L (20-40) % Monocytes % (Manual) 11 H (0-10) % Platelet Estimate Normal (NORMAL) Hypochromasia (manual) Slight Poikilocytosis (manual Slight Anisocytosis (manual) Slight Tear Drop Cells Slight Sodium 133 (132-148) mmol/L Potassium 3.4 L (3.6-5.2) mmol/L Chloride 103 (98-107) mmol/L Carbon Dioxide 20 L (22-30) mmol/L Anion Gap 14 (10-20) BUN 31 H (9-20) mg/dL Creatinine 1.3 (0.8-1.5) mg/dL Est GFR ( Amer) > 60 Est GFR (Non-Af Amer) 58 POC Glucose (mg/dL) 107 (65-110) mg/dL Random Glucose 113 H (75-110) mg/dL Calcium 7.7 L (8.6-10.4) mg/dl Phosphorus 2.4 L (2.5-4.5) mg/dL Magnesium 2.3 (1.6-2.3) mg/dL Total Bilirubin 0.5 (0.2-1.3) mg/dL AST 66 H D (17-59) U/L ALT 36 (21-72) U/L Alkaline Phosphatase 173 H D (38-126) U/L Total Protein 6.5 (6.3-8.3) g/dL Albumin 2.9 L (3.5-5.0) g/dL Globulin 3.6 (2.2-3.9) gm/dL Albumin/Globulin Ratio 0.8 L (1.0-2.1) Urine Color (YELLOW) Urine Clarity (Clear) Urine pH (5.0-8.0) Ur Specific [place] (1.003-1.030) Urine Protein (NEGATIVE) mg/dL Urine Glucose (UA) (Normal) mg/dL Urine Ketones (NEGATIVE) mg/dL Urine Blood (NEGATIVE) Urine Nitrate (NEGATIVE) Urine Bilirubin (NEGATIVE) Urine Urobilinogen (0.2-1.0) mg/dL Ur Leukocyte Esterase (Negative) Jana/uL Urine WBC (Auto) (0-5) /hpf Urine RBC (Auto) (0-3) /hpf 07/23/18 07/22/18 07/22/18 Range/Units 00:15 21:05 16:20 WBC (4.8-10.8) K/uL RBC (4.40-5.90) Mil/uL Hgb (12.0-18.0) g/dL Hct (35.0-51.0) % MCV (80.0-94.0) fL MCH (27.0-31.0) pg MCHC (33.0-37.0) g/dL RDW (11.5-14.5) % Plt Count (130-400) K/uL MPV (7.2-11.7) fL Neut % (Auto) (50.0-75.0) % Lymph % (Auto) (20.0-40.0) % [place] % (Auto) (0.0-10.0) % Eos % (Auto) (0.0-4.0) % Baso % (Auto) (0.0-2.0) % Neut # (Auto) (1.8-7.0) K/uL Lymph # (Auto) (1.0-4.3) K/uL [place] # (Auto) (0.0-0.8) K/uL Eos # (Auto) (0.0-0.7) K/uL Baso # (Auto) (0.0-0.2) K/uL Neutrophils % (Manual) (50-75) % Lymphocytes % (Manual) (20-40) % Monocytes % (Manual) (0-10) % Platelet Estimate (NORMAL) Hypochromasia (manual) Poikilocytosis (manual Anisocytosis (manual) Tear Drop Cells Sodium (132-148) mmol/L Potassium (3.6-5.2) mmol/L Chloride (98-107) mmol/L Carbon Dioxide (22-30) mmol/L Anion Gap (10-20) BUN (9-20) mg/dL Creatinine (0.8-1.5) mg/dL Est GFR ( Amer) Est GFR (Non-Af Amer) POC Glucose (mg/dL) 121 H 111 H 95 (65-110) mg/dL Random Glucose (75-110) mg/dL Calcium (8.6-10.4) mg/dl Phosphorus (2.5-4.5) mg/dL Magnesium (1.6-2.3) mg/dL Total Bilirubin (0.2-1.3) mg/dL AST (17-59) U/L ALT (21-72) U/L Alkaline Phosphatase (38-126) U/L Total Protein (6.3-8.3) g/dL Albumin (3.5-5.0) g/dL Globulin (2.2-3.9) gm/dL Albumin/Globulin Ratio (1.0-2.1) Urine Color (YELLOW) Urine Clarity (Clear) Urine pH (5.0-8.0) Ur Specific [place] (1.003-1.030) Urine Protein (NEGATIVE) mg/dL Urine Glucose (UA) (Normal) mg/dL Urine Ketones (NEGATIVE) mg/dL Urine Blood (NEGATIVE) Urine Nitrate (NEGATIVE) Urine Bilirubin (NEGATIVE) Urine Urobilinogen (0.2-1.0) mg/dL Ur Leukocyte Esterase (Negative) Jana/uL Urine WBC (Auto) (0-5) /hpf Urine RBC (Auto) (0-3) /hpf Laboratory Results - last 24 hr 07/22/18 07/22/18 07/23/18 16:20 21:05 00:15 WBC RBC Hgb Hct MCV MCH MCHC RDW Plt Count MPV Neut % (Auto) Lymph % (Auto) [place] % (Auto) Eos % (Auto) Baso % (Auto) Neut # (Auto) Lymph # (Auto) [place] # (Auto) Eos # (Auto) Baso # (Auto) Neutrophils % (Manual) Lymphocytes % (Manual) Monocytes % (Manual) Platelet Estimate Hypochromasia (manual) Poikilocytosis (manual Anisocytosis (manual) Tear Drop Cells Sodium Potassium Chloride Carbon Dioxide Anion Gap BUN Creatinine Est GFR ( Amer) Est GFR (Non-Af Amer) POC Glucose (mg/dL) 95 111 H 121 H Random Glucose Calcium Phosphorus Magnesium Total Bilirubin AST ALT Alkaline Phosphatase Total Protein Albumin Globulin Albumin/Globulin Ratio Urine Color Urine Clarity Urine pH Ur Specific [place] Urine Protein Urine Glucose (UA) Urine Ketones Urine Blood Urine Nitrate Urine Bilirubin Urine Urobilinogen Ur Leukocyte Esterase Urine WBC (Auto) Urine RBC (Auto) 07/23/18 07/23/18 07/23/18 06:28 06:28 07:39 WBC 16.5 H RBC 3.12 L Hgb 9.1 L Hct 27.2 L MCV 87.1 MCH 29.1 MCHC 33.4 RDW 14.3 Plt Count 321 D MPV 10.2 Neut % (Auto) 83.6 H Lymph % (Auto) 5.9 L [place] % (Auto) 9.2 Eos % (Auto) 0.2 Baso % (Auto) 1.1 Neut # (Auto) 13.8 H Lymph # (Auto) 1.0 [place] # (Auto) 1.5 H Eos # (Auto) 0.0 Baso # (Auto) 0.2 Neutrophils % (Manual) 82 H Lymphocytes % (Manual) 7 L Monocytes % (Manual) 11 H Platelet Estimate Normal Hypochromasia (manual) Slight Poikilocytosis (manual Slight Anisocytosis (manual) Slight Tear Drop Cells Slight Sodium 133 Potassium 3.4 L Chloride 103 Carbon Dioxide 20 L Anion Gap 14 BUN 31 H Creatinine 1.3 Est GFR ( Amer) > 60 Est GFR (Non-Af Amer) 58 POC Glucose (mg/dL) 107 Random Glucose 113 H Calcium 7.7 L Phosphorus 2.4 L Magnesium 2.3 Total Bilirubin 0.5 AST 66 H D ALT 36 Alkaline Phosphatase 173 H D Total Protein 6.5 Albumin 2.9 L Globulin 3.6 Albumin/Globulin Ratio 0.8 L Urine Color Urine Clarity Urine pH Ur Specific [place] Urine Protein Urine Glucose (UA) Urine Ketones Urine Blood Urine Nitrate Urine Bilirubin Urine Urobilinogen Ur Leukocyte Esterase Urine WBC (Auto) Urine RBC (Auto) 07/23/18 07/23/18 07/23/18 11:23 11:41 16:08 WBC RBC Hgb Hct MCV MCH MCHC RDW Plt Count MPV Neut % (Auto) Lymph % (Auto) [place] % (Auto) Eos % (Auto) Baso % (Auto) Neut # (Auto) Lymph # (Auto) [place] # (Auto) Eos # (Auto) Baso # (Auto) Neutrophils % (Manual) Lymphocytes % (Manual) Monocytes % (Manual) Platelet Estimate Hypochromasia (manual) Poikilocytosis (manual Anisocytosis (manual) Tear Drop Cells Sodium Potassium Chloride Carbon Dioxide Anion Gap BUN Creatinine Est GFR ( Amer) Est GFR (Non-Af Amer) POC Glucose (mg/dL) 235 H 231 H Random Glucose Calcium Phosphorus Magnesium Total Bilirubin AST ALT Alkaline Phosphatase Total Protein Albumin Globulin Albumin/Globulin Ratio Urine Color Yellow Urine Clarity Hazy Urine pH 5.0 Ur Specific [place] 1.017 Urine Protein 2+ H Urine Glucose (UA) 1+ H Urine Ketones Negative Urine Blood 2+ H Urine Nitrate Negative Urine Bilirubin Negative Urine Urobilinogen Normal Ur Leukocyte Esterase Neg Urine WBC (Auto) 4 Urine RBC (Auto) 10 H Critical Care Progress Note - Nutrition Nutrition: Nutrition Category Date Time Status Heart Healthy Diet [DIET] Diets 07/23/18 Breakfast Active Attending/Attestation - Attestation I have personally seen and examined this patient.: Yes I have fully participated in the care of the patient.: Yes I have reviewed all pertinent clinical information: Yes Notes (Text): 07/23/18 18:05 patient seen and examined in the intensive Care unit Continue IV antibiotics Patient difficulty voiding, insert Jin catheter Wound Care consult Patient seen by neurology monitor renal function
[2018-07-23] MEDS: Vancomycin 1 gm/NS 200 ml 1 GM/200 ML BAG IVPB SCH ×2 (08:50→20:20)
--- NOTE | 2018-07-23 09:23 | CP.PCM.PN ---
Subjective - Date & Time of Evaluation Date of Evaluation: 07/23/18 Time of Evaluation: 09:00 - Subjective Subjective: Patient was seen and examined by me, He is verbal and able to answer questions. He was extubated yesterday, no acute events overnight He still has a large WBC count, also he tells us that he has a lot of flank pain and also suprapubic area pain. A UA suggestive of UTI and this was a clean catch. Still pending urine culture at this moment. There was 950 cc of urine from straight cath and we are still pending urine culture. Blood culture + x 2 bottles gram positive. Objective - Vital Signs/Intake and Output Vital Signs (last 24 hours): Temp Pulse Resp BP Pulse Ox 99.4 F 99 H 20 175/72 H 99 07/23/18 08:00 07/23/18 08:00 07/23/18 08:00 07/23/18 07:47 07/23/18 08:00 Intake and Output: 07/23/18 07/23/18 06:59 18:59 Intake Total 640 800 Output Total 950 0 Balance -310 800 - Medications Medications: Current Medications Acetaminophen (Tylenol 325mg Tab) 650 mg PO Q6 PRN PRN Reason: Pain, Mild (1-3) Last Admin: 07/23/18 08:51 Dose: 650 mg Aspirin (Ecotrin) 81 mg PO DAILY [facility] Dextrose (Dextrose 50% Inj) 0 ml IV STAT PRN; Protocol PRN Reason: Hypoglycemia Protocol Last Admin: 07/22/18 11:53 Dose: 50 ml Dextrose (Glutose 15) 0 gm PO ONCE PRN; Protocol PRN Reason: Hypoglycemia Protocol Enalapril Maleate (Vasotec) 20 mg PO DAILY [facility] Gabapentin (Neurontin) 100 mg PO DAILY [facility] Glucagon (Glucagen Diagnostic Kit) 0 mg IM STAT PRN; Protocol PRN Reason: Hypoglycemia Protocol Heparin Sodium (Porcine) (Heparin) 5,000 units SC Q12 [facility] Last Admin: 07/22/18 21:53 Dose: 5,000 units Levetiracetam 1,000 mg/ (Dextrose) 110 mls @ 420 mls/hr IVPB Q12H [facility]ASPRE[facility] Last Admin: 07/22/18 21:55 Dose: 420 mls/hr Dextrose (Dextrose 5% In Water 1000 Ml) 1,000 mls @ 0 mls/hr IV .Q0M PRN; Protocol PRN Reason: Hypoglycemia Protocol Piperacillin Sod/Tazobactam Sod (Zosyn 2.25 Gm Iv Premix) 2.25 gm in 50 mls @ 100 mls/hr IVPB Q6H JASPREET; Protocol Last Admin: 07/23/18 05:00 Dose: 100 mls/hr Vancomycin/Sodium Chloride (Vancomycin 1 Gm/Ns 200 Ml) 1 gm in 200 mls @ 166.6 mls/hr IVPB Q12H JASPREET; Protocol Stop: 07/27/18 21:01 Last Admin: 07/23/18 08:50 Dose: 166.6 mls/hr Insulin Human Regular (Novolin R) 0 unit SC ACHS JASPREET; Protocol Last Admin: 07/23/18 08:05 Dose: Not Given Pantoprazole Sodium (Protonix Inj) 40 mg IVP DAILY [facility] Last Admin: 07/22/18 10:23 Dose: 40 mg - Labs Labs: 07/23/18 06:28 07/23/18 06:28 PT 15.6 SECONDS (9.7-12.2) H 07/21/18 20:28 INR 1.4 07/21/18 20:28 APTT 34 SECONDS (21-34) 07/21/18 20:28 - Constitutional Appears: Unkempt, Confused, Chronically Ill - Head Exam Additional comments: Left nostril is history of removal due to infection. No active bleeding - Respiratory Exam Respiratory Exam: Decreased Breath Sounds, NORMAL BREATHING PATTERN - Cardiovascular Exam Cardiovascular Exam: REGULAR RHYTHM - GI/Abdominal Exam GI & Abdominal Exam: Soft, Tenderness Additional comments: Pain suprapubic as well as bilateral flank area - Extremities Exam Additional comments: Bilateral BKA - Neurological Exam Neurological Exam: Alert, Awake Neuro motor strength exam: Left Upper Extremity: 4, Right Upper Extremity: 4 - Psychiatric Exam Psychiatric exam: Depressed, Flat Affect - Skin Skin Exam: Pallor, Warm Assessment and Plan - Assessment and Plan (Free Text) Assessment: This is a relatively young patient who unfourtunately has extensive medical history including 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 He also has history of DM, HTN, and was last seen responsive at 3pm by . About 45 minutes later, patients return to find patient unresponsive, gurgling. Patient was intubated onsite by EMS w/ paralytics. This morning is on CPAP trial and hopefully extubated soon. Leucocytosis 07/23: Pending urine culture. Patient is now extubated and verbal and tells us he is having a lot of flank pain. Will order CT without contrast of the abomen and pelvis. The blood culture positive for gram + x 2 bottle. 07/22: WBC decreased to 11. Possible UTI source. On Zosyn and Doxyckine at this moment. Zosyn, Doxycyclin Pending Urine, Blood, and procalcitonin at this time. Unresponsiveness, respiratory distress, with no significant hypoxia on ABG 07/23: Now extubated, awake, alert, following commands 07/22: Awake this morning, moving arms. Interactive. He is gesturing to have tube removed. On CPAP trial this moment. - CTA: mild stenosis of L& R common carotid bifurcation as well proximal internal carotid arteries no acute pathology, no significant stenosis. 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
[2018-07-23] MEDS ORDERED: Potassium & Sodium Phosphate PO ONE (09:35)
[2018-07-23 09:47] LABS: ANISOCYTOSIS SLIGHT; LYMPHOCYTE 7 % (20-40); MONOCYTE 11 % (0-10); NEUTROPHIL 82 % (50-75); PLATELET ESTIMATE NORMAL (NORMAL); POIKILOCYTOSIS SLIGHT; TOTAL CELLS COUNTED 100
[2018-07-23 09:48] LABS: HYPOCHROMIC SLIGHT; TEARDROP CELLS SLIGHT
[2018-07-23] MEDS ORDERED: Home Med 1 UNIT (Atorvastatin [Lipitor] 1 TAB) PO SCH (10:00)
[2018-07-23 12:18] LABS: URINE BILIRUBIN NEGATIVE (NEGATIVE); URINE BLOOD 2+ (NEGATIVE); URINE CLARITY Hazy (Clear); URINE COLOR Yellow (YELLOW); URINE GLUCOSE (UA) 1+ mg/dL (Normal); URINE LEUKOCYTE ESTERASE NEG Leu/uL (Negative); URINE PROTEIN 2+ mg/dL (NEGATIVE); URINE UROBILINOGEN NORMAL mg/dL (0.2-1.0)
--- NOTE | 2018-07-23 12:46 | CP.PCM.CON ---
History of Present Illness - History of Present Illness History of Present Illness: 52 year old male with a past medical history of hypertension, diabetes (b/l BKA 2/2 uncontrolled diabetes) and hx cellulitis with erosion into the nasal cartilage of the face was found unresponsive at home and intubated by EMS, On admission, blood cultures were done and antibiotics started Blood c/s + for cocci in clusters- ID and sensitivity pending PMH: hypertension, diabetes and hx cellulitis with erosion into the nasal cartilage of the face (for 1 year) PSH: b/l BKA 2/2 uncontrolled diabetes Social: Denies tobacco, alcohol or illicit drug use. Allergies: NKDA Meds: Reviewed need to be confirmed Review of Systems - Review of Systems All systems: reviewed and no additional remarkable complaints except - Constitutional Constitutional: As Per HPI - EENT Eyes: absent: As Per HPI, Blind Spots, Blurred Vision, Change in Vision, Decreased Night Vision, Diplopia, Discharge, Dry Eye, Exophthalmos, Floaters, Irritation, Itchy Eyes, Loss of Peripheral Vision, Pain, Photophobia, Requires Corrective Lenses, Sees Flashes, Spots in Vision, Tunnel Vision, Other Visual Disturbances, Loss of Vision, Other Ears: absent: As Per HPI, Decreased Hearing, Ear Discharge, Ear Pain, Tinnitus, Abnormal Hearing, Disequilibrium, Dizziness, Other Nose/Mouth/Throat: As Per HPI - Cardiovascular Cardiovascular: As Per HPI - Respiratory Respiratory: absent: As Per HPI, Cough, Dyspnea, Hemoptysis, Dyspnea on Exertion, Wheezing, Snoring, Stridor, Pain on Inspiration, Chest Congestion, Excessive Mucous Production, Change in Mucous Color, Pain with Coughing, Other - Gastrointestinal Gastrointestinal: absent: As Per HPI, Abdominal Pain, Belching, Bloating, Change in Bowel Habits, Change in Stool Character, Coffee Ground Emesis, Constipation, Cramping, Diarrhea, Dyspepsia, Dysphagia, Early Satiety, Excessive Flatus, Fecal Incontinence, Heartburn, Hematemesis, Hematochezia, Loose Stools, Melena, Nausea, Odynophagia, Temesmus, Vomiting, Other - Genitourinary Genitourinary: absent: As Per HPI, Change in Urinary Stream, Difficulty Urinating, Dysuria, Flank Pain, Hematuria, Pyuria, Nocturia, Urinary Incontinence, Urinary Frequency, Urinary Hesitance, Urinary Urgency, Voiding Freq/Small Amts, Freq UTI, Hx Renal/Bladder Calculi, Hx /Renal Surgery, Bladder Distension, Other - Musculoskeletal Musculoskeletal: absent: As Per HPI, Abnormal Gait, Arthralgias, Atrophy, Back Pain, Deformity, Joint Swelling, Limited Range of Motion, Loss of Height, Muscle Cramps, Muscle Weakness, Myalgias, Neck Pain, Numbness, Radiating Pain into Limb, Stiffness, Tingling, Other - Integumentary Integumentary: As Per HPI - Neurological Neurological: As Per HPI - Psychiatric Psychiatric: absent: As Per HPI, Abnormal Sleep Pattern, Anhedonia, Anxiety, Auditory Hallucinations, Behavioral Changes, Change in Appetite, Change in Libido, Confusion, Depression, Difficulty Concentrating, Hallucinations, Homicidal Ideation, Hopelessness, Irritability, Memory Loss, Mood Swings, Panic Attacks, Paranoia, Suicidal Ideation, Visual Hallucinations, Tactile Hallucinations, Other - Endocrine Endocrine: As Per HPI - Hematologic/Lymphatic Hematologic: absent: As Per HPI, Easy Bleeding, Easy Bruising, Lymphadenopathy, Other Past Patient History - Infectious Disease Hx of Infectious Diseases: None - Past Medical History & Family History Past Medical History?: Yes - Past Social History Smoking Status: Former Smoker - CARDIAC Hx Hypertension: Yes - PULMONARY Hx Respiratory Disorders: No - NEUROLOGICAL Hx Neurological Disorder: No - HEENT Hx HEENT Problems: No - RENAL Hx Chronic Kidney Disease: No - ENDOCRINE/METABOLIC Hx Diabetes Mellitus Type 2: Yes - HEMATOLOGICAL/ONCOLOGICAL Hx Anemia: Yes Hx Human Immunodeficiency Virus (HIV): No - INTEGUMENTARY Hx Dermatological Problems: Yes Hx Cellulitis: Yes Other/Comment: Ulcer right foot - MUSCULOSKELETAL/RHEUMATOLOGICAL Hx Musculoskeletal Disorders: Yes (SEE COMMENT) Hx Falls: No Hx Osteomyelitis: Yes Other/Comment: BILATERAL BK-AMPUTATIONS - GASTROINTESTINAL Hx Gastrointestinal Disorders: No - GENITOURINARY/GYNECOLOGICAL Hx Genitourinary Disorders: No - PSYCHIATRIC Hx Depression: Yes Hx Substance Use: No - SURGICAL HISTORY Hx Surgeries: Yes Hx Amputation: Yes (Bilateral BKA) - ANESTHESIA Hx Anesthesia: Yes Hx Anesthesia Reactions: No Hx Malignant Hyperthermia: No Meds Allergies/Adverse Reactions: Allergies Allergy/AdvReac Type Severity Reaction Status Date / Time No Known Allergies Allergy Verified 07/21/18 20:06 - Medications Medications: Current Medications Acetaminophen (Tylenol 325mg Tab) 650 mg PO Q6 PRN PRN Reason: Pain, Mild (1-3) Last Admin: 07/23/18 08:51 Dose: 650 mg Aspirin (Ecotrin) 81 mg PO DAILY [facility] Last Admin: 07/23/18 09:41 Dose: 81 mg Dextrose (Dextrose 50% Inj) 0 ml IV STAT PRN; Protocol PRN Reason: Hypoglycemia Protocol Last Admin: 07/22/18 11:53 Dose: 50 ml Dextrose (Glutose 15) 0 gm PO ONCE PRN; Protocol PRN Reason: Hypoglycemia Protocol Enalapril Maleate (Vasotec) 20 mg PO DAILY [facility] Last Admin: 07/23/18 10:23 Dose: 20 mg Gabapentin (Neurontin) 100 mg PO TID [facility] Glucagon (Glucagen Diagnostic Kit) 0 mg IM STAT PRN; Protocol PRN Reason: Hypoglycemia Protocol Heparin Sodium (Porcine) (Heparin) 5,000 units SC Q12 [facility] Last Admin: 07/23/18 09:41 Dose: 5,000 units Levetiracetam 1,000 mg/ (Dextrose) 110 mls @ 420 mls/hr IVPB Q12H [facility] Last Admin: 07/23/18 09:41 Dose: 420 mls/hr Dextrose (Dextrose 5% In Water 1000 Ml) 1,000 mls @ 0 mls/hr IV .Q0M PRN; Protocol PRN Reason: Hypoglycemia Protocol Piperacillin Sod/Tazobactam Sod (Zosyn 2.25 Gm Iv Premix) 2.25 gm in 50 mls @ 100 mls/hr IVPB Q6H [facility]; Protocol Last Admin: 07/23/18 10:06 Dose: 100 mls/hr Vancomycin/Sodium Chloride (Vancomycin 1 Gm/Ns 200 Ml) 1 gm in 200 mls @ 166.6 mls/hr IVPB Q12H [facility]; Protocol Stop: 07/27/18 21:01 Last Admin: 07/23/18 08:50 Dose: 166.6 mls/hr Insulin Human Regular (Novolin R) 0 unit SC ACHS [facility]; Protocol Last Admin: 07/23/18 12:21 Dose: 3 units Pantoprazole Sodium (Protonix Inj) 40 mg IVP DAILY [facility] Last Admin: 07/23/18 09:41 Dose: 40 mg Physical Exam - Constitutional Appears: Non-toxic, No Acute Distress, Confused, Cachectic, Chronically Ill - Head Exam Head Exam: ATRAUMATIC, NORMAL INSPECTION, NORMOCEPHALIC - Eye Exam Eye Exam: PERRL - ENT Exam ENT Exam: Mucous Membranes Dry Additional comments: left side of nose has been debrided down to the cat]\rtilage - Neck Exam Neck exam: Negative for: Normal Inspection - Respiratory Exam Respiratory Exam: Decreased Breath Sounds, Rhonchi - Cardiovascular Exam Cardiovascular Exam: +S1, +S2. absent: REGULAR RHYTHM - GI/Abdominal Exam GI & Abdominal Exam: Diminished Bowel Sounds - Rectal Exam Rectal Exam: Deferred - Exam Exam: NORMAL INSPECTION - Extremities Exam Additional comments: bilateral BKA - Back Exam Back exam: muscle spasm, NORMAL INSPECTION. absent: CVA tenderness (L), CVA tenderness (R), FULL ROM, paraspinal tenderness, vertebral tenderness - Neurological Exam Neurological exam: Alert, Altered, CN II-XII Intact - Psychiatric Exam Psychiatric exam: Depressed - Skin Skin Exam: Dry Results - Vital Signs Recent Vital Signs: Last Vital Signs Temp 99.4 F 07/23/18 08:00 Pulse 83 07/23/18 12:00 Resp 19 07/23/18 12:00 BP 137/56 L 07/23/18 11:46 Pulse Ox 98 07/23/18 12:00 - Labs Result Diagrams: 07/23/18 06:28 07/23/18 06:28 Labs: Laboratory Results - last 24 hr 07/22/18 07/22/18 07/22/18 05:56 12:22 16:20 WBC RBC Hgb Hct MCV MCH MCHC RDW Plt Count MPV Neut % (Auto) Lymph % (Auto) [place] % (Auto) Eos % (Auto) Baso % (Auto) Neut # (Auto) Lymph # (Auto) [place] # (Auto) Eos # (Auto) Baso # (Auto) Neutrophils % (Manual) Lymphocytes % (Manual) Monocytes % (Manual) Platelet Estimate Hypochromasia (manual) Poikilocytosis (manual Anisocytosis (manual) Tear Drop Cells Sodium Potassium Chloride Carbon Dioxide Anion Gap BUN Creatinine Est GFR ( Amer) Est GFR (Non-Af Amer) POC Glucose (mg/dL) 163 H 95 Random Glucose Calcium Phosphorus Magnesium Total Bilirubin AST ALT Alkaline Phosphatase Total Protein Albumin Globulin Albumin/Globulin Ratio Procalcitonin 14.74 H Urine Color Urine Clarity Urine pH Ur Specific [place] Urine Protein Urine Glucose (UA) Urine Ketones Urine Blood Urine Nitrate Urine Bilirubin Urine Urobilinogen Ur Leukocyte Esterase Urine WBC (Auto) Urine RBC (Auto) 07/22/18 07/23/18 07/23/18 21:05 00:15 06:28 WBC 16.5 H RBC 3.12 L Hgb 9.1 L Hct 27.2 L MCV 87.1 MCH 29.1 MCHC 33.4 RDW 14.3 Plt Count 321 D MPV 10.2 Neut % (Auto) 83.6 H Lymph % (Auto) 5.9 L [place] % (Auto) 9.2 Eos % (Auto) 0.2 Baso % (Auto) 1.1 Neut # (Auto) 13.8 H Lymph # (Auto) 1.0 [place] # (Auto) 1.5 H Eos # (Auto) 0.0 Baso # (Auto) 0.2 Neutrophils % (Manual) 82 H Lymphocytes % (Manual) 7 L Monocytes % (Manual) 11 H Platelet Estimate Normal Hypochromasia (manual) Slight Poikilocytosis (manual Slight Anisocytosis (manual) Slight Tear Drop Cells Slight Sodium Potassium Chloride Carbon Dioxide Anion Gap BUN Creatinine Est GFR ( Amer) Est GFR (Non-Af Amer) POC Glucose (mg/dL) 111 H 121 H Random Glucose Calcium Phosphorus Magnesium Total Bilirubin AST ALT Alkaline Phosphatase Total Protein Albumin Globulin Albumin/Globulin Ratio Procalcitonin Urine Color Urine Clarity Urine pH Ur Specific [place] Urine Protein Urine Glucose (UA) Urine Ketones Urine Blood Urine Nitrate Urine Bilirubin Urine Urobilinogen Ur Leukocyte Esterase Urine WBC (Auto) Urine RBC (Auto) 07/23/18 07/23/18 07/23/18 06:28 07:39 11:23 WBC RBC Hgb Hct MCV MCH MCHC RDW Plt Count MPV Neut % (Auto) Lymph % (Auto) [place] % (Auto) Eos % (Auto) Baso % (Auto) Neut # (Auto) Lymph # (Auto) [place] # (Auto) Eos # (Auto) Baso # (Auto) Neutrophils % (Manual) Lymphocytes % (Manual) Monocytes % (Manual) Platelet Estimate Hypochromasia (manual) Poikilocytosis (manual Anisocytosis (manual) Tear Drop Cells Sodium 133 Potassium 3.4 L Chloride 103 Carbon Dioxide 20 L Anion Gap 14 BUN 31 H Creatinine 1.3 Est GFR ( Amer) > 60 Est GFR (Non-Af Amer) 58 POC Glucose (mg/dL) 107 235 H Random Glucose 113 H Calcium 7.7 L Phosphorus 2.4 L Magnesium 2.3 Total Bilirubin 0.5 AST 66 H D ALT 36 Alkaline Phosphatase 173 H D Total Protein 6.5 Albumin 2.9 L Globulin 3.6 Albumin/Globulin Ratio 0.8 L Procalcitonin Urine Color Urine Clarity Urine pH Ur Specific [place] Urine Protein Urine Glucose (UA) Urine Ketones Urine Blood Urine Nitrate Urine Bilirubin Urine Urobilinogen Ur Leukocyte Esterase Urine WBC (Auto) Urine RBC (Auto) 07/23/18 11:41 WBC RBC Hgb Hct MCV MCH MCHC RDW Plt Count MPV Neut % (Auto) Lymph % (Auto) [place] % (Auto) Eos % (Auto) Baso % (Auto) Neut # (Auto) Lymph # (Auto) [place] # (Auto) Eos # (Auto) Baso # (Auto) Neutrophils % (Manual) Lymphocytes % (Manual) Monocytes % (Manual) Platelet Estimate Hypochromasia (manual) Poikilocytosis (manual Anisocytosis (manual) Tear Drop Cells Sodium Potassium Chloride Carbon Dioxide Anion Gap BUN Creatinine Est GFR ( Amer) Est GFR (Non-Af Amer) POC Glucose (mg/dL) Random Glucose Calcium Phosphorus Magnesium Total Bilirubin AST ALT Alkaline Phosphatase Total Protein Albumin Globulin Albumin/Globulin Ratio Procalcitonin Urine Color Yellow Urine Clarity Hazy Urine pH 5.0 Ur Specific [place] 1.017 Urine Protein 2+ H Urine Glucose (UA) 1+ H Urine Ketones Negative Urine Blood 2+ H Urine Nitrate Negative Urine Bilirubin Negative Urine Urobilinogen Normal Ur Leukocyte Esterase Neg Urine WBC (Auto) 4 Urine RBC (Auto) 10 H Assessment & Plan (1) Respiratory failure Status: Acute (2) Toxic metabolic encephalopathy Status: Acute (3) Acute hyperglycemia Status: Acute (4) Sepsis Status: Acute (5) Sepsis affecting skin Status: Acute - Assessment and Plan (Free Text) Assessment: severe sepsis- source unclear r/o infection of facial bones vs deep c]seated endocarditis recommend cultures, imaging, IV antibiotics consider echo
--- NOTE | 2018-07-23 13:48 | CT ---
Date of service: 07/23/2018 PROCEDURE: CT Abdomen and Pelvis without intravenous contrast HISTORY: flank pain, abdominal pain, positive blood culture COMPARISON: None. TECHNIQUE: Contiguous images were obtained from the domes of the diaphragms to the upper thighs without the administration of intravenous contrast. Oral contrast was not administered. Radiation dose: Total exam DLP = 1286.64 mGy-cm. This CT exam was performed using one or more of the following dose reduction techniques: Automated exposure control, adjustment of the mA and/or kV according to patient size, and/or use of iterative reconstruction technique. FINDINGS: LOWER THORAX: Cardiomegaly. Coronary arterial and valvular calcifications. Focal left lower lobe atelectasis versus consolidation. Trace right pleural effusion. LIVER: Unremarkable. No gross lesion or ductal dilatation. GALLBLADDER AND BILE DUCTS: Unremarkable. PANCREAS: Unremarkable. No gross lesion or ductal dilatation. SPLEEN: Unremarkable. ADRENALS: Unremarkable. No mass. KIDNEYS AND URETERS: Punctate right lower pole nonobstructive calculi. Parenchymal high-density bilaterally. 1.9 cm left upper pole cyst. No hydronephrosis. No solid mass. VASCULATURE: Unremarkable. No aortic aneurysm. Aortic atherosclerotic calcification and mural plaque present. BOWEL: Unremarkable. No obstruction. No gross mural thickening. APPENDIX: Unremarkable. Normal appendix. PERITONEUM: Tiny fat containing right inguinal hernia. No free fluid. No free air. LYMPH NODES: Unremarkable. No enlarged lymph nodes. BLADDER: Thickening of the urinary bladder wall. REPRODUCTIVE: Unremarkable. BONES: No acute fracture. OTHER FINDINGS: None. IMPRESSION: Bladder wall thickening may be related to cystitis. Correlation with urinalysis/culture is recommended. Focal left lower lobe consolidation versus atelectasis. Bilateral renal parenchymal high density may be related to underlying metabolic disorder.
[2018-07-23] MEDS ORDERED: Labetalol 5mg/ml (4ml) IV ONE (15:30)
[2018-07-23] MEDS ORDERED: Labetalol 5mg/ml (4ml) IVP STA (17:14)
[2018-07-23] MEDS: Metoprolol Succinate 25 mg XL Tab PO SCH (17:19)
[2018-07-24] MEDS: Piperacill/Tazo 2.25gm in Dex 2.25 GM/50 ML BAG IVPB SCH ×4 (05:00→21:11)
[2018-07-24 06:18] LABS: BASO # 0.2 K/uL (0.0-0.2); EOS # 0.1 K/uL (0.0-0.7); MONO # 1.6 K/uL (0.0-0.8); MONO % 8.4 % (0.0-10.0)
[2018-07-24 06:22] LABS: BASO % 0.8 % (0.0-2.0); EOS % 0.6 % (0.0-4.0); HEMOGLOBIN 7.7 g/dL (12.0-18.0); LYMPH # 1.5 K/uL (1.0-4.3); MEAN CORPUSCULAR HEMOGLOBIN 29.3 pg (27.0-31.0); MEAN CORPUSCULAR HGB CONC 33.2 g/dL (33.0-37.0); MEAN PLATELET VOLUME 9.5 fL (7.2-11.7); NEUT # 15.8 K/uL (1.8-7.0); NEUT % 82.2 % (50.0-75.0); PLATELET COUNT 389 K/uL (130-400); RBC 2.62 Mil/uL (4.40-5.90); RED CELL DISTRIBUTION WIDTH 14.1 % (11.5-14.5); WHITE BLOOD COUNT 19.2 K/uL (4.8-10.8)
[2018-07-24 06:37] LABS: ALB/GLOB RATIO 0.8 (1.0-2.1); ALBUMIN 2.7 g/dL (3.5-5.0); ALT/SGPT 40 U/L (21-72); AST/SGOT 64 U/L (17-59); BLOOD UREA NITROGEN 21 mg/dL (9-20); CALCIUM 7.3 mg/dl (8.6-10.4); GFR NON-AFRICAN AMERICAN > 60
--- NOTE | 2018-07-24 07:50 | CP.CCUPN ---
<Nan Osman - Last Filed: 07/24/18 10:49> CCU Subjective - Physician Review Events Since Last Encounter (Free Text): 07/24/18 07:48 Patient is retaining urine- Jin inserted BP continues to be elevated Subjective (Free Text): 07/24/18 07:49 Patient is seen and examined this morning. He is awake and alert. He states he is overall feeling poorly and has diffuse pain. He is saturating well on RA. His BP continues to be elevated. Critical Care Time Spent (in minutes): 35 CCU Objective - Vital Signs / Intake & Output Vital Signs (Last 4 hours): Vital Signs Temp Pulse Resp BP Pulse Ox 07/24/18 07:00 94 H 12 07/24/18 06:46 96 H 16 174/94 H 07/24/18 06:00 94 H 15 98 07/24/18 05:48 98 H 14 152/95 H 100 07/24/18 05:00 93 H 20 100 07/24/18 04:46 94 H 18 148/90 100 07/24/18 04:00 99.7 F H 93 H 22 100 Intake and Output (Last 8hrs): Intake & Output 07/23/18 07/24/18 07/24/18 22:59 06:59 14:59 Intake Total 800 250 0 Output Total 700 1200 Balance 100 -950 0 Weight 189 lb Intake: Intake, IV Amount 400 150 0 Right Forearm 50 Right Hand 100 100 Right Wrist 250 50 0 Oral 400 100 Output: Urine 700 1200 Urethral (Jin) 1200 Urine, Voided 700 Other: # Bowel Movements 0 1 - Physical Exam Head: Positive for: Atraumatic, Normocephalic Pupils: Positive for: PERRL Extroacular Muscles: Positive for: EOMI Conjunctiva: Positive for: Normal Mouth: Positive for: Moist Mucous Membranes Nose (External): Positive for: Lesions (L nasal cartilage erosion, not acute ) Respiratory/Chest: Positive for: Clear to Auscultation, Good Air Exchange. Negative for: Respiratory Distress, Accessory Muscle Use Cardiovascular: Positive for: Regular Rate and Rhythm ( ) Abdomen: Positive for: Normal Bowel Sounds. 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) Neurological: Positive for: GCS=15, CN II-XII Intact Skin: Positive for: Warm, Dry, Normal Color Psychiatric: Positive for: Alert - Medications Active Medications: Active Medications Generic Name Dose Route Start Last Admin Trade Name Freq PRN Reason Stop Dose Admin Acetaminophen 650 mg 07/23/18 08:37 07/23/18 18:08 Tylenol 325mg Tab PO 650 mg Q6 PRN Administration Pain, Mild (1-3) Aspirin 81 mg 07/23/18 10:00 07/23/18 09:41 Ecotrin PO 81 mg DAILY JASPREET Administration Dextrose 0 ml 07/22/18 00:04 07/22/18 11:53 Dextrose 50% Inj IV 50 ml STAT PRN Administration Hypoglycemia Protocol Protocol Dextrose 0 gm 07/22/18 00:04 Glutose 15 PO ONCE PRN Hypoglycemia Protocol Protocol Enalapril Maleate 30 mg 07/24/18 10:00 Vasotec PO DAILY JASPREET Gabapentin 100 mg 07/23/18 14:00 07/23/18 17:24 Neurontin PO 100 mg TID JASPREET Administration Glucagon 0 mg 07/22/18 00:04 Glucagen Diagnostic Kit IM STAT PRN Hypoglycemia Protocol Protocol Heparin Sodium (Porcine) 5,000 units 07/22/18 10:00 07/23/18 21:58 Heparin SC 5,000 units Q12 JASPREET Administration Dextrose 1,000 mls @ 0 mls/hr 07/22/18 00:04 Dextrose 5% In Water 1000 Ml IV .Q0M PRN Hypoglycemia Protocol Protocol Per Protocol Piperacillin Sod/Tazobactam Sod 2.25 gm in 50 mls @ 100 mls/hr 07/22/18 04:00 07/24/18 05:00 Zosyn 2.25 Gm Iv Premix IVPB 100 mls/hr Q6H JASPREET Administration Protocol Vancomycin/Sodium Chloride 1 gm in 200 mls @ 166.6 mls/hr 07/22/18 21:00 07/23/18 20:20 Vancomycin 1 Gm/Ns 200 Ml IVPB 07/27/18 21:01 166.6 mls/hr Q12H JASPREET Administration Protocol Insulin Human Regular 0 unit 07/23/18 07:30 07/23/18 21:30 Novolin R SC Not Given ACHS JASPREET Protocol Metoprolol Succinate 25 mg 07/23/18 18:00 07/23/18 17:19 Toprol Xl PO 25 mg BID JASPREET Administration Pantoprazole Sodium 40 mg 07/24/18 10:00 Protonix Ec Tab PO DAILY JASPREET - Patient Studies Lab Studies: Microbiology Studies 07/22/18 11:41 Urine Culture - Final Urine,Jin No Growth (<1,000 CFU/ML) 07/21/18 21:00 S.aureus & Coag-Neg Staph PNA FISH - Final Blood Blood Culture - Preliminary Gram Positive Cocci Gram Stain - Final Lab Studies 07/24/18 07/24/18 07/24/18 Range/Units 07:15 06:15 06:15 WBC (4.8-10.8) K/uL RBC (4.40-5.90) Mil/uL Hgb (12.0-18.0) g/dL Hct (35.0-51.0) % MCV (80.0-94.0) fL MCH (27.0-31.0) pg MCHC (33.0-37.0) g/dL RDW (11.5-14.5) % Plt Count (130-400) K/uL MPV (7.2-11.7) fL Neut % (Auto) (50.0-75.0) % Lymph % (Auto) (20.0-40.0) % [place] % (Auto) (0.0-10.0) % Eos % (Auto) (0.0-4.0) % Baso % (Auto) (0.0-2.0) % Neut # (Auto) (1.8-7.0) K/uL Lymph # (Auto) (1.0-4.3) K/uL [place] # (Auto) (0.0-0.8) K/uL Eos # (Auto) (0.0-0.7) K/uL Baso # (Auto) (0.0-0.2) K/uL Neutrophils % (Manual) (50-75) % Lymphocytes % (Manual) (20-40) % Monocytes % (Manual) (0-10) % Platelet Estimate (NORMAL) Hypochromasia (manual) Poikilocytosis (manual Anisocytosis (manual) Tear Drop Cells Sodium 129 L (132-148) mmol/L Potassium 4.3 (3.6-5.2) mmol/L Chloride 102 (98-107) mmol/L Carbon Dioxide 18 L (22-30) mmol/L Anion Gap 14 (10-20) BUN 21 H (9-20) mg/dL Creatinine 1.1 (0.8-1.5) mg/dL Est GFR ( Amer) > 60 Est GFR (Non-Af Amer) > 60 POC Glucose (mg/dL) 217 H (65-110) mg/dL Random Glucose 242 H (75-110) mg/dL Calcium 7.3 L (8.6-10.4) mg/dl Phosphorus 2.2 L (2.5-4.5) mg/dL Magnesium 2.0 (1.6-2.3) mg/dL Total Bilirubin 0.6 (0.2-1.3) mg/dL AST 64 H (17-59) U/L ALT 40 (21-72) U/L Alkaline Phosphatase 172 H (38-126) U/L Total Protein 6.2 L (6.3-8.3) g/dL Albumin 2.7 L (3.5-5.0) g/dL Globulin 3.4 (2.2-3.9) gm/dL Albumin/Globulin Ratio 0.8 L (1.0-2.1) Urine Color (YELLOW) Urine Clarity (Clear) Urine pH (5.0-8.0) Ur Specific [place] (1.003-1.030) Urine Protein (NEGATIVE) mg/dL Urine Glucose (UA) (Normal) mg/dL Urine Ketones (NEGATIVE) mg/dL Urine Blood (NEGATIVE) Urine Nitrate (NEGATIVE) Urine Bilirubin (NEGATIVE) Urine Urobilinogen (0.2-1.0) mg/dL Ur Leukocyte Esterase (Negative) Jana/uL Urine WBC (Auto) (0-5) /hpf Urine RBC (Auto) (0-3) /hpf Vancomycin Trough 14.8 H (5.0-10.0) ug/mL 07/24/18 07/23/18 07/23/18 Range/Units 06:15 21:26 16:08 WBC 19.2 H (4.8-10.8) K/uL RBC 2.62 L (4.40-5.90) Mil/uL Hgb 7.7 L (12.0-18.0) g/dL Hct 23.1 L (35.0-51.0) % MCV 88.0 (80.0-94.0) fL MCH 29.3 (27.0-31.0) pg MCHC 33.2 (33.0-37.0) g/dL RDW 14.1 (11.5-14.5) % Plt Count 389 (130-400) K/uL MPV 9.5 (7.2-11.7) fL Neut % (Auto) 82.2 H (50.0-75.0) % Lymph % (Auto) 8.0 L (20.0-40.0) % [place] % (Auto) 8.4 (0.0-10.0) % Eos % (Auto) 0.6 (0.0-4.0) % Baso % (Auto) 0.8 (0.0-2.0) % Neut # (Auto) 15.8 H (1.8-7.0) K/uL Lymph # (Auto) 1.5 (1.0-4.3) K/uL [place] # (Auto) 1.6 H (0.0-0.8) K/uL Eos # (Auto) 0.1 (0.0-0.7) K/uL Baso # (Auto) 0.2 (0.0-0.2) K/uL Neutrophils % (Manual) (50-75) % Lymphocytes % (Manual) (20-40) % Monocytes % (Manual) (0-10) % Platelet Estimate (NORMAL) Hypochromasia (manual) Poikilocytosis (manual Anisocytosis (manual) Tear Drop Cells Sodium (132-148) mmol/L Potassium (3.6-5.2) mmol/L Chloride (98-107) mmol/L Carbon Dioxide (22-30) mmol/L Anion Gap (10-20) BUN (9-20) mg/dL Creatinine (0.8-1.5) mg/dL Est GFR ( Amer) Est GFR (Non-Af Amer) POC Glucose (mg/dL) 283 H 231 H (65-110) mg/dL Random Glucose (75-110) mg/dL Calcium (8.6-10.4) mg/dl Phosphorus (2.5-4.5) mg/dL Magnesium (1.6-2.3) mg/dL Total Bilirubin (0.2-1.3) mg/dL AST (17-59) U/L ALT (21-72) U/L Alkaline Phosphatase (38-126) U/L Total Protein (6.3-8.3) g/dL Albumin (3.5-5.0) g/dL Globulin (2.2-3.9) gm/dL Albumin/Globulin Ratio (1.0-2.1) Urine Color (YELLOW) Urine Clarity (Clear) Urine pH (5.0-8.0) Ur Specific [place] (1.003-1.030) Urine Protein (NEGATIVE) mg/dL Urine Glucose (UA) (Normal) mg/dL Urine Ketones (NEGATIVE) mg/dL Urine Blood (NEGATIVE) Urine Nitrate (NEGATIVE) Urine Bilirubin (NEGATIVE) Urine Urobilinogen (0.2-1.0) mg/dL Ur Leukocyte Esterase (Negative) Jana/uL Urine WBC (Auto) (0-5) /hpf Urine RBC (Auto) (0-3) /hpf Vancomycin Trough (5.0-10.0) ug/mL 07/23/18 07/23/18 07/23/18 Range/Units 11:41 11:23 07:39 WBC (4.8-10.8) K/uL RBC (4.40-5.90) Mil/uL Hgb (12.0-18.0) g/dL Hct (35.0-51.0) % MCV (80.0-94.0) fL MCH (27.0-31.0) pg MCHC (33.0-37.0) g/dL RDW (11.5-14.5) % Plt Count (130-400) K/uL MPV (7.2-11.7) fL Neut % (Auto) (50.0-75.0) % Lymph % (Auto) (20.0-40.0) % [place] % (Auto) (0.0-10.0) % Eos % (Auto) (0.0-4.0) % Baso % (Auto) (0.0-2.0) % Neut # (Auto) (1.8-7.0) K/uL Lymph # (Auto) (1.0-4.3) K/uL [place] # (Auto) (0.0-0.8) K/uL Eos # (Auto) (0.0-0.7) K/uL Baso # (Auto) (0.0-0.2) K/uL Neutrophils % (Manual) (50-75) % Lymphocytes % (Manual) (20-40) % Monocytes % (Manual) (0-10) % Platelet Estimate (NORMAL) Hypochromasia (manual) Poikilocytosis (manual Anisocytosis (manual) Tear Drop Cells Sodium (132-148) mmol/L Potassium (3.6-5.2) mmol/L Chloride (98-107) mmol/L Carbon Dioxide (22-30) mmol/L Anion Gap (10-20) BUN (9-20) mg/dL Creatinine (0.8-1.5) mg/dL Est GFR ( Amer) Est GFR (Non-Af Amer) POC Glucose (mg/dL) 235 H 107 (65-110) mg/dL Random Glucose (75-110) mg/dL Calcium (8.6-10.4) mg/dl Phosphorus (2.5-4.5) mg/dL Magnesium (1.6-2.3) mg/dL Total Bilirubin (0.2-1.3) mg/dL AST (17-59) U/L ALT (21-72) U/L Alkaline Phosphatase (38-126) U/L Total Protein (6.3-8.3) g/dL Albumin (3.5-5.0) g/dL Globulin (2.2-3.9) gm/dL Albumin/Globulin Ratio (1.0-2.1) Urine Color Yellow (YELLOW) Urine Clarity Hazy (Clear) Urine pH 5.0 (5.0-8.0) Ur Specific [place] 1.017 (1.003-1.030) Urine Protein 2+ H (NEGATIVE) mg/dL Urine Glucose (UA) 1+ H (Normal) mg/dL Urine Ketones Negative (NEGATIVE) mg/dL Urine Blood 2+ H (NEGATIVE) Urine Nitrate Negative (NEGATIVE) Urine Bilirubin Negative (NEGATIVE) Urine Urobilinogen Normal (0.2-1.0) mg/dL Ur Leukocyte Esterase Neg (Negative) Jana/uL Urine WBC (Auto) 4 (0-5) /hpf Urine RBC (Auto) 10 H (0-3) /hpf Vancomycin Trough (5.0-10.0) ug/mL 07/23/18 Range/Units 06:28 WBC (4.8-10.8) K/uL RBC (4.40-5.90) Mil/uL Hgb (12.0-18.0) g/dL Hct (35.0-51.0) % MCV (80.0-94.0) fL MCH (27.0-31.0) pg MCHC (33.0-37.0) g/dL RDW (11.5-14.5) % Plt Count (130-400) K/uL MPV (7.2-11.7) fL Neut % (Auto) (50.0-75.0) % Lymph % (Auto) (20.0-40.0) % [place] % (Auto) (0.0-10.0) % Eos % (Auto) (0.0-4.0) % Baso % (Auto) (0.0-2.0) % Neut # (Auto) (1.8-7.0) K/uL Lymph # (Auto) (1.0-4.3) K/uL [place] # (Auto) (0.0-0.8) K/uL Eos # (Auto) (0.0-0.7) K/uL Baso # (Auto) (0.0-0.2) K/uL Neutrophils % (Manual) 82 H (50-75) % Lymphocytes % (Manual) 7 L (20-40) % Monocytes % (Manual) 11 H (0-10) % Platelet Estimate Normal (NORMAL) Hypochromasia (manual) Slight Poikilocytosis (manual Slight Anisocytosis (manual) Slight Tear Drop Cells Slight Sodium (132-148) mmol/L Potassium (3.6-5.2) mmol/L Chloride (98-107) mmol/L Carbon Dioxide (22-30) mmol/L Anion Gap (10-20) BUN (9-20) mg/dL Creatinine (0.8-1.5) mg/dL Est GFR ( Amer) Est GFR (Non-Af Amer) POC Glucose (mg/dL) (65-110) mg/dL Random Glucose (75-110) mg/dL Calcium (8.6-10.4) mg/dl Phosphorus (2.5-4.5) mg/dL Magnesium (1.6-2.3) mg/dL Total Bilirubin (0.2-1.3) mg/dL AST (17-59) U/L ALT (21-72) U/L Alkaline Phosphatase (38-126) U/L Total Protein (6.3-8.3) g/dL Albumin (3.5-5.0) g/dL Globulin (2.2-3.9) gm/dL Albumin/Globulin Ratio (1.0-2.1) Urine Color (YELLOW) Urine Clarity (Clear) Urine pH (5.0-8.0) Ur Specific [place] (1.003-1.030) Urine Protein (NEGATIVE) mg/dL Urine Glucose (UA) (Normal) mg/dL Urine Ketones (NEGATIVE) mg/dL Urine Blood (NEGATIVE) Urine Nitrate (NEGATIVE) Urine Bilirubin (NEGATIVE) Urine Urobilinogen (0.2-1.0) mg/dL Ur Leukocyte Esterase (Negative) Jana/uL Urine WBC (Auto) (0-5) /hpf Urine RBC (Auto) (0-3) /hpf Vancomycin Trough (5.0-10.0) ug/mL Laboratory Results - last 24 hr 07/23/18 07/23/18 07/23/18 06:28 07:39 11:23 WBC RBC Hgb Hct MCV MCH MCHC RDW Plt Count MPV Neut % (Auto) Lymph % (Auto) [place] % (Auto) Eos % (Auto) Baso % (Auto) Neut # (Auto) Lymph # (Auto) [place] # (Auto) Eos # (Auto) Baso # (Auto) Neutrophils % (Manual) 82 H Lymphocytes % (Manual) 7 L Monocytes % (Manual) 11 H Platelet Estimate Normal Hypochromasia (manual) Slight Poikilocytosis (manual Slight Anisocytosis (manual) Slight Tear Drop Cells Slight Sodium Potassium Chloride Carbon Dioxide Anion Gap BUN Creatinine Est GFR ( Amer) Est GFR (Non-Af Amer) POC Glucose (mg/dL) 107 235 H Random Glucose Calcium Phosphorus Magnesium Total Bilirubin AST ALT Alkaline Phosphatase Total Protein Albumin Globulin Albumin/Globulin Ratio Urine Color Urine Clarity Urine pH Ur Specific [place] Urine Protein Urine Glucose (UA) Urine Ketones Urine Blood Urine Nitrate Urine Bilirubin Urine Urobilinogen Ur Leukocyte Esterase Urine WBC (Auto) Urine RBC (Auto) Vancomycin Trough 07/23/18 07/23/18 07/23/18 11:41 16:08 21:26 WBC RBC Hgb Hct MCV MCH MCHC RDW Plt Count MPV Neut % (Auto) Lymph % (Auto) [place] % (Auto) Eos % (Auto) Baso % (Auto) Neut # (Auto) Lymph # (Auto) [place] # (Auto) Eos # (Auto) Baso # (Auto) Neutrophils % (Manual) Lymphocytes % (Manual) Monocytes % (Manual) Platelet Estimate Hypochromasia (manual) Poikilocytosis (manual Anisocytosis (manual) Tear Drop Cells Sodium Potassium Chloride Carbon Dioxide Anion Gap BUN Creatinine Est GFR ( Amer) Est GFR (Non-Af Amer) POC Glucose (mg/dL) 231 H 283 H Random Glucose Calcium Phosphorus Magnesium Total Bilirubin AST ALT Alkaline Phosphatase Total Protein Albumin Globulin Albumin/Globulin Ratio Urine Color Yellow Urine Clarity Hazy Urine pH 5.0 Ur Specific [place] 1.017 Urine Protein 2+ H Urine Glucose (UA) 1+ H Urine Ketones Negative Urine Blood 2+ H Urine Nitrate Negative Urine Bilirubin Negative Urine Urobilinogen Normal Ur Leukocyte Esterase Neg Urine WBC (Auto) 4 Urine RBC (Auto) 10 H Vancomycin Trough 07/24/18 07/24/18 07/24/18 06:15 06:15 06:15 WBC 19.2 H RBC 2.62 L Hgb 7.7 L Hct 23.1 L MCV 88.0 MCH 29.3 MCHC 33.2 RDW 14.1 Plt Count 389 MPV 9.5 Neut % (Auto) 82.2 H Lymph % (Auto) 8.0 L [place] % (Auto) 8.4 Eos % (Auto) 0.6 Baso % (Auto) 0.8 Neut # (Auto) 15.8 H Lymph # (Auto) 1.5 [place] # (Auto) 1.6 H Eos # (Auto) 0.1 Baso # (Auto) 0.2 Neutrophils % (Manual) Lymphocytes % (Manual) Monocytes % (Manual) Platelet Estimate Hypochromasia (manual) Poikilocytosis (manual Anisocytosis (manual) Tear Drop Cells Sodium 129 L Potassium 4.3 Chloride 102 Carbon Dioxide 18 L Anion Gap 14 BUN 21 H Creatinine 1.1 Est GFR ( Amer) > 60 Est GFR (Non-Af Amer) > 60 POC Glucose (mg/dL) Random Glucose 242 H Calcium 7.3 L Phosphorus 2.2 L Magnesium 2.0 Total Bilirubin 0.6 AST 64 H ALT 40 Alkaline Phosphatase 172 H Total Protein 6.2 L Albumin 2.7 L Globulin 3.4 Albumin/Globulin Ratio 0.8 L Urine Color Urine Clarity Urine pH Ur Specific [place] Urine Protein Urine Glucose (UA) Urine Ketones Urine Blood Urine Nitrate Urine Bilirubin Urine Urobilinogen Ur Leukocyte Esterase Urine WBC (Auto) Urine RBC (Auto) Vancomycin Trough 14.8 H 07/24/18 07:15 WBC RBC Hgb Hct MCV MCH MCHC RDW Plt Count MPV Neut % (Auto) Lymph % (Auto) [place] % (Auto) Eos % (Auto) Baso % (Auto) Neut # (Auto) Lymph # (Auto) [place] # (Auto) Eos # (Auto) Baso # (Auto) Neutrophils % (Manual) Lymphocytes % (Manual) Monocytes % (Manual) Platelet Estimate Hypochromasia (manual) Poikilocytosis (manual Anisocytosis (manual) Tear Drop Cells Sodium Potassium Chloride Carbon Dioxide Anion Gap BUN Creatinine Est GFR ( Amer) Est GFR (Non-Af Amer) POC Glucose (mg/dL) 217 H Random Glucose Calcium Phosphorus Magnesium Total Bilirubin AST ALT Alkaline Phosphatase Total Protein Albumin Globulin Albumin/Globulin Ratio Urine Color Urine Clarity Urine pH Ur Specific [place] Urine Protein Urine Glucose (UA) Urine Ketones Urine Blood Urine Nitrate Urine Bilirubin Urine Urobilinogen Ur Leukocyte Esterase Urine WBC (Auto) Urine RBC (Auto) Vancomycin Trough Fingerstick Blood Sugar Results: 283 Review of Systems - Constitutional Constitutional: absent: Fever, Chills - EENT Eyes: absent: Change in Vision Ears: absent: Decreased Hearing Nose/Mouth/Throat: As Per HPI, Nasal Trauma, Nose Pain. absent: Nasal Co ngestion, Sore Throat - Cardiovascular Cardiovascular: absent: Chest Pain, Diaphoresis, Dyspnea - Respiratory Respiratory: absent: Cough, Dyspnea - Gastrointestinal Gastrointestinal: absent: Abdominal Pain, Diarrhea, Nausea, Vomiting - Genitourinary Genitourinary: Difficulty Urinating - Musculoskeletal Musculoskeletal: Back Pain, Radiating Pain into Limb - Integumentary Integumentary: As Per HPI, Non-Healing Lesions - Neurological Neurological: absent: Confusion, Dizziness, Syncope - Psychiatric Psychiatric: UNREMARKABLE - Endocrine Endocrine: UNREMARKABLE - Hematologic/Lymphatic Hematologic: UNREMARKABLE Critical Care Progress Note - Extremities/Vascular Does the Patient have a Central Venous Catheter?: No Does the Patient need a Central Venous Catheter?: No Does the Patient have a Jin Catheter?: Yes Does the Patient need a Jin Catheter?: Yes Catheter Insertion Criteria: Patient has acute urinary retention or bladder outlet obstruction - Prophylaxis GI Prophylaxis GI: PPI - Prophylaxis DVT Prophylaxis DVT: Heparin SQ - Nutrition Nutrition: Nutrition Category Date Time Status Heart Healthy Diet [DIET] Diets 07/23/18 Breakfast Active Assessment/Plan - Assessment and Plan (Free Text) Assessment: Patient is a 53 yo male with a history of uncontrolled T2DM (s/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 Code stroke was called, and CT head was negative for acute findings. Patient was intubated and placed on sedation. He was successfully extubated <24hrs after admission. Patient's blood cultures are positive for Staph aureus. Jin inserted due to urinary retention and urology consulted. Patient is stable to be transferred to med/surg unit. Plan: Neuro: - Code stroke - CT head: no acute findings - CTA head and neck: no significant stenoses or abnormalities - PRL wnl (12.9) - Gabapentin 100 mg PO TID - Neurology consulted (Manda)- no need for anticonvulsant at this time - PT/OT/ST CV: - Monitor vitals- patient persistently hypertensive - ASA 81 mg PO daily - Increase Enalapril to 30 mg PO daily - Start Metoprolol 25 mg PO BID Pulm: - CXR: no acute findings - CT A/P: LLL consolidaation vs atelectasis - Maintain spO2>92%- NC PRN - ABG: acidosis resolved GI: - Heart healthy diet- low carb, 2 g Na Renal: - Elevated BUN, Cr improved - I's & O's - Replete electrolytes PRN - Hyponatremia (129) - Serum osm, urine electrolytes pending - Jin reinserted 07/23 2/2 urinary retention - CT A/P: bladder wall thickening (cystitis), b/l renal parenchymal high density may be underlying metabolic disorder - Urology consulted (Titi Kam) Endo: - A1c 8.9 - Maintain euglycemia - Hypoglycemia protocol - Accuchecks ACHS with medium dose Novolin R ISS Heme: - Hgb (7.7)- slight decrease, no signs of active bleeding - Monitor H&H ID: - Leukocytosis stable- L shift - Tmax 100.4 07/23 10PM - Tylenol 650 mg PO Q6H PRN - Procal 14.74 - Blood Cx 2/2 positive for Staph aureus - UA: many magda, 340 WBC, trace LE, neg nitrate - Urine Cx no growth - Repeat UA: neg LE, neg nitrate, 4 WBC - Repeat Urine Cx no growth - Echo pending - Vancomycin 1 g IV Q12H- trough 14.8 - Zosyn 2.25 mg IV Q6H - ID consulted (Jose) Integumentary: - Wound care consulted for L facial erosion Ppx: VTE: Heparin 5000 units Q12H GI: Protonix 40 mg PO daily Code status: full code Case discussed with attending, Dr. Roberto. PGY-1 Nan Osman D.O. <Js Roberto S - Last Filed: 07/24/18 17:34> CCU Objective - Vital Signs / Intake & Output Vital Signs (Last 4 hours): Vital Signs Temp Pulse Resp BP 07/24/18 17:25 99.7 F H 07/24/18 17:00 89 18 07/24/18 16:40 100.7 F H 07/24/18 16:00 100.7 F H 86 24 07/24/18 15:00 88 27 H 07/24/18 14:49 88 26 H 138/41 L 07/24/18 14:00 94 H 22 Intake and Output (Last 8hrs): Intake & Output 07/24/18 07/24/18 07/24/18 06:59 14:59 22:59 Intake Total 250 1200 Output Total 1200 925 90 Balance -950 275 -90 Weight 189 lb Intake: Intake, IV Amount 150 250 Right Hand 100 Right Wrist 50 250 Oral 100 950 Output: Urine 1200 925 90 Urethral (Jin) 1200 925 90 Other: # Bowel Movements 1 - Medications Active Medications: Active Medications Generic Name Dose Route Start Last Admin Trade Name Freq PRN Reason Stop Dose Admin Acetaminophen 650 mg 07/24/18 16:25 07/24/18 16:40 Tylenol 325mg Tab PO 650 mg Q6 PRN Administration Fever >100.4 or Pain Aspirin 81 mg 07/23/18 10:00 07/24/18 09:49 Ecotrin PO 81 mg DAILY JASPREET Administration Dextrose 0 ml 07/22/18 00:04 07/22/18 11:53 Dextrose 50% Inj IV 50 ml STAT PRN Administration Hypoglycemia Protocol Protocol Dextrose 0 gm 07/22/18 00:04 Glutose 15 PO ONCE PRN Hypoglycemia Protocol Protocol Enalapril Maleate 30 mg 07/24/18 10:00 07/24/18 09:47 Vasotec PO 30 mg DAILY JASPREET Administration Gabapentin 100 mg 07/23/18 14:00 07/24/18 17:22 Neurontin PO 100 mg TID JASPREET Administration Glucagon 0 mg 07/22/18 00:04 Glucagen Diagnostic Kit IM STAT PRN Hypoglycemia Protocol Protocol Heparin Sodium (Porcine) 5,000 units 07/22/18 10:00 07/24/18 09:49 Heparin SC 5,000 units Q12 JASPREET Administration Dextrose 1,000 mls @ 0 mls/hr 07/22/18 00:04 Dextrose 5% In Water 1000 Ml IV .Q0M PRN Hypoglycemia Protocol Protocol Per Protocol Piperacillin Sod/Tazobactam Sod 2.25 gm in 50 mls @ 100 mls/hr 07/22/18 04:00 07/24/18 16:17 Zosyn 2.25 Gm Iv Premix IVPB 100 mls/hr Q6H JASPREET Administration Protocol Vancomycin/Sodium Chloride 1 gm in 200 mls @ 166.6 mls/hr 07/22/18 21:00 07/24/18 09:48 Vancomycin 1 Gm/Ns 200 Ml IVPB 07/27/18 21:01 166.6 mls/hr Q12H JASPREET Administration Protocol Insulin Human Regular 0 unit 07/23/18 07:30 07/24/18 16:18 Novolin R SC 6 units ACHS JASPREET Administration Protocol Metoprolol Succinate 25 mg 07/23/18 18:00 07/24/18 17:22 Toprol Xl PO 25 mg BID JASPREET Administration Pantoprazole Sodium 40 mg 07/24/18 10:00 07/24/18 09:47 Protonix Ec Tab PO 40 mg DAILY JASPREET Administration - Patient Studies Lab Studies: Microbiology Studies 07/23/18 11:41 Urine Culture - Final Urine,Clean Catch No Growth (<1,000 CFU/ML) 07/21/18 20:30 Blood Culture - Final Blood Staphylococcus Aureus Gram Stain - Final 07/21/18 21:00 S.aureus & Coag-Neg Staph PNA FISH - Final Blood Blood Culture - Final Staphylococcus Aureus Gram Stain - Final Lab Studies 07/24/18 07/24/18 07/24/18 Range/Units 11:33 11:00 09:07 WBC (4.8-10.8) K/uL RBC (4.40-5.90) Mil/uL Hgb (12.0-18.0) g/dL Hct (35.0-51.0) % MCV (80.0-94.0) fL MCH (27.0-31.0) pg MCHC (33.0-37.0) g/dL RDW (11.5-14.5) % Plt Count (130-400) K/uL MPV (7.2-11.7) fL Neut % (Auto) (50.0-75.0) % Lymph % (Auto) (20.0-40.0) % [place] % (Auto) (0.0-10.0) % Eos % (Auto) (0.0-4.0) % Baso % (Auto) (0.0-2.0) % Neut # (Auto) (1.8-7.0) K/uL Lymph # (Auto) (1.0-4.3) K/uL [place] # (Auto) (0.0-0.8) K/uL Eos # (Auto) (0.0-0.7) K/uL Baso # (Auto) (0.0-0.2) K/uL Neutrophils % (Manual) (50-75) % Band Neutrophils % (0-2) % Lymphocytes % (Manual) (20-40) % Monocytes % (Manual) (0-10) % Eosinophils % (Manual) (0-4) % Platelet Estimate (NORMAL) Hypochromasia (manual) Sodium (132-148) mmol/L Potassium (3.6-5.2) mmol/L Chloride (98-107) mmol/L Carbon Dioxide (22-30) mmol/L Anion Gap (10-20) BUN (9-20) mg/dL Creatinine (0.8-1.5) mg/dL Est GFR ( Amer) Est GFR (Non-Af Amer) POC Glucose (mg/dL) 248 H (65-110) mg/dL Random Glucose (75-110) mg/dL Serum Osmolality (272-300) mosm/kg Calcium (8.6-10.4) mg/dl Phosphorus (2.5-4.5) mg/dL Magnesium (1.6-2.3) mg/dL Total Bilirubin (0.2-1.3) mg/dL AST (17-59) U/L ALT (21-72) U/L Alkaline Phosphatase (38-126) U/L Total Protein (6.3-8.3) g/dL Albumin (3.5-5.0) g/dL Globulin (2.2-3.9) gm/dL Albumin/Globulin Ratio (1.0-2.1) Ur Random Sodium 83 mmol/L Ur Random Potassium 20.9 mmol/L Vancomycin Trough (5.0-10.0) ug/mL 07/24/18 07/24/18 07/24/18 Range/Units 08:56 07:15 06:15 WBC (4.8-10.8) K/uL RBC (4.40-5.90) Mil/uL Hgb (12.0-18.0) g/dL Hct (35.0-51.0) % MCV (80.0-94.0) fL MCH (27.0-31.0) pg MCHC (33.0-37.0) g/dL RDW (11.5-14.5) % Plt Count (130-400) K/uL MPV (7.2-11.7) fL Neut % (Auto) (50.0-75.0) % Lymph % (Auto) (20.0-40.0) % [place] % (Auto) (0.0-10.0) % Eos % (Auto) (0.0-4.0) % Baso % (Auto) (0.0-2.0) % Neut # (Auto) (1.8-7.0) K/uL Lymph # (Auto) (1.0-4.3) K/uL [place] # (Auto) (0.0-0.8) K/uL Eos # (Auto) (0.0-0.7) K/uL Baso # (Auto) (0.0-0.2) K/uL Neutrophils % (Manual) (50-75) % Band Neutrophils % (0-2) % Lymphocytes % (Manual) (20-40) % Monocytes % (Manual) (0-10) % Eosinophils % (Manual) (0-4) % Platelet Estimate (NORMAL) Hypochromasia (manual) Sodium (132-148) mmol/L Potassium (3.6-5.2) mmol/L Chloride (98-107) mmol/L Carbon Dioxide (22-30) mmol/L Anion Gap (10-20) BUN (9-20) mg/dL Creatinine (0.8-1.5) mg/dL Est GFR ( Amer) Est GFR (Non-Af Amer) POC Glucose (mg/dL) 217 H (65-110) mg/dL Random Glucose (75-110) mg/dL Serum Osmolality 276 (272-300) mosm/kg Calcium (8.6-10.4) mg/dl Phosphorus (2.5-4.5) mg/dL Magnesium (1.6-2.3) mg/dL Total Bilirubin (0.2-1.3) mg/dL AST (17-59) U/L ALT (21-72) U/L Alkaline Phosphatase (38-126) U/L Total Protein (6.3-8.3) g/dL Albumin (3.5-5.0) g/dL Globulin (2.2-3.9) gm/dL Albumin/Globulin Ratio (1.0-2.1) Ur Random Sodium mmol/L Ur Random Potassium mmol/L Vancomycin Trough 14.8 H (5.0-10.0) ug/mL 07/24/18 07/24/18 07/23/18 Range/Units 06:15 06:15 21:26 WBC 19.2 H (4.8-10.8) K/uL RBC 2.62 L (4.40-5.90) Mil/uL Hgb 7.7 L (12.0-18.0) g/dL Hct 23.1 L (35.0-51.0) % MCV 88.0 (80.0-94.0) fL MCH 29.3 (27.0-31.0) pg MCHC 33.2 (33.0-37.0) g/dL RDW 14.1 (11.5-14.5) % Plt Count 389 (130-400) K/uL MPV 9.5 (7.2-11.7) fL Neut % (Auto) 82.2 H (50.0-75.0) % Lymph % (Auto) 8.0 L (20.0-40.0) % [place] % (Auto) 8.4 (0.0-10.0) % Eos % (Auto) 0.6 (0.0-4.0) % Baso % (Auto) 0.8 (0.0-2.0) % Neut # (Auto) 15.8 H (1.8-7.0) K/uL Lymph # (Auto) 1.5 (1.0-4.3) K/uL [place] # (Auto) 1.6 H (0.0-0.8) K/uL Eos # (Auto) 0.1 (0.0-0.7) K/uL Baso # (Auto) 0.2 (0.0-0.2) K/uL Neutrophils % (Manual) 76 H (50-75) % Band Neutrophils % 5 H (0-2) % Lymphocytes % (Manual) 8 L (20-40) % Monocytes % (Manual) 10 (0-10) % Eosinophils % (Manual) 1 (0-4) % Platelet Estimate Normal (NORMAL) Hypochromasia (manual) Slight Sodium 129 L (132-148) mmol/L Potassium 4.3 (3.6-5.2) mmol/L Chloride 102 (98-107) mmol/L Carbon Dioxide 18 L (22-30) mmol/L Anion Gap 14 (10-20) BUN 21 H (9-20) mg/dL Creatinine 1.1 (0.8-1.5) mg/dL Est GFR ( Amer) > 60 Est GFR (Non-Af Amer) > 60 POC Glucose (mg/dL) 283 H (65-110) mg/dL Random Glucose 242 H (75-110) mg/dL Serum Osmolality (272-300) mosm/kg Calcium 7.3 L (8.6-10.4) mg/dl Phosphorus 2.2 L (2.5-4.5) mg/dL Magnesium 2.0 (1.6-2.3) mg/dL Total Bilirubin 0.6 (0.2-1.3) mg/dL AST 64 H (17-59) U/L ALT 40 (21-72) U/L Alkaline Phosphatase 172 H (38-126) U/L Total Protein 6.2 L (6.3-8.3) g/dL Albumin 2.7 L (3.5-5.0) g/dL Globulin 3.4 (2.2-3.9) gm/dL Albumin/Globulin Ratio 0.8 L (1.0-2.1) Ur Random Sodium mmol/L Ur Random Potassium mmol/L Vancomycin Trough (5.0-10.0) ug/mL Laboratory Results - last 24 hr 07/23/18 07/24/18 07/24/18 21:26 06:15 06:15 WBC 19.2 H RBC 2.62 L Hgb 7.7 L Hct 23.1 L MCV 88.0 MCH 29.3 MCHC 33.2 RDW 14.1 Plt Count 389 MPV 9.5 Neut % (Auto) 82.2 H Lymph % (Auto) 8.0 L [place] % (Auto) 8.4 Eos % (Auto) 0.6 Baso % (Auto) 0.8 Neut # (Auto) 15.8 H Lymph # (Auto) 1.5 [place] # (Auto) 1.6 H Eos # (Auto) 0.1 Baso # (Auto) 0.2 Neutrophils % (Manual) 76 H Band Neutrophils % 5 H Lymphocytes % (Manual) 8 L Monocytes % (Manual) 10 Eosinophils % (Manual) 1 Platelet Estimate Normal Hypochromasia (manual) Slight Sodium 129 L Potassium 4.3 Chloride 102 Carbon Dioxide 18 L Anion Gap 14 BUN 21 H Creatinine 1.1 Est GFR ( Amer) > 60 Est GFR (Non-Af Amer) > 60 POC Glucose (mg/dL) 283 H Random Glucose 242 H Serum Osmolality Calcium 7.3 L Phosphorus 2.2 L Magnesium 2.0 Total Bilirubin 0.6 AST 64 H ALT 40 Alkaline Phosphatase 172 H Total Protein 6.2 L Albumin 2.7 L Globulin 3.4 Albumin/Globulin Ratio 0.8 L Ur Random Sodium Ur Random Potassium Vancomycin Trough 07/24/18 07/24/18 07/24/18 06:15 07:15 08:56 WBC RBC Hgb Hct MCV MCH MCHC RDW Plt Count MPV Neut % (Auto) Lymph % (Auto) [place] % (Auto) Eos % (Auto) Baso % (Auto) Neut # (Auto) Lymph # (Auto) [place] # (Auto) Eos # (Auto) Baso # (Auto) Neutrophils % (Manual) Band Neutrophils % Lymphocytes % (Manual) Monocytes % (Manual) Eosinophils % (Manual) Platelet Estimate Hypochromasia (manual) Sodium Potassium Chloride Carbon Dioxide Anion Gap BUN Creatinine Est GFR ( Amer) Est GFR (Non-Af Amer) POC Glucose (mg/dL) 217 H Random Glucose Serum Osmolality 276 Calcium Phosphorus Magnesium Total Bilirubin AST ALT Alkaline Phosphatase Total Protein Albumin Globulin Albumin/Globulin Ratio Ur Random Sodium Ur Random Potassium Vancomycin Trough 14.8 H 07/24/18 07/24/18 07/24/18 09:07 11:00 11:33 WBC RBC Hgb Hct MCV MCH MCHC RDW Plt Count MPV Neut % (Auto) Lymph % (Auto) [place] % (Auto) Eos % (Auto) Baso % (Auto) Neut # (Auto) Lymph # (Auto) [place] # (Auto) Eos # (Auto) Baso # (Auto) Neutrophils % (Manual) Band Neutrophils % Lymphocytes % (Manual) Monocytes % (Manual) Eosinophils % (Manual) Platelet Estimate Hypochromasia (manual) Sodium Potassium Chloride Carbon Dioxide Anion Gap BUN Creatinine Est GFR ( Amer) Est GFR (Non-Af Amer) POC Glucose (mg/dL) 248 H Random Glucose Serum Osmolality Calcium Phosphorus Magnesium Total Bilirubin AST ALT Alkaline Phosphatase Total Protein Albumin Globulin Albumin/Globulin Ratio Ur Random Sodium 83 Ur Random Potassium 20.9 Vancomycin Trough Critical Care Progress Note - Nutrition Nutrition: Nutrition Category Date Time Status Heart Healthy Diet [DIET] Diets 07/23/18 Breakfast Active Attending/Attestation - Attestation I have personally seen and examined this patient.: Yes I have fully participated in the care of the patient.: Yes I have reviewed all pertinent clinical information: Yes Notes (Text): 07/24/18 17:33 patient is seen and examined in the intensive care unit. Transfer patient to floor Continue present treatment
[2018-07-24] MEDS: (Novolin R) Insulin Human Regular 100 units/ml vial SC SCH ×4 (08:47→21:43)
[2018-07-24 08:50] LABS: BANDS 5 % (0-2); EOSINOPHIL 1 % (0-4); LYMPHOCYTE 8 % (20-40); MONOCYTE 10 % (0-10); NEUTROPHIL 76 % (50-75); TOTAL CELLS COUNTED 100
[2018-07-24 08:51] LABS: HYPOCHROMIC SLIGHT; PLATELET ESTIMATE NORMAL (NORMAL)
--- NOTE | 2018-07-24 09:23 | CP.PCM.PN ---
Subjective - Date & Time of Evaluation Date of Evaluation: 07/24/18 Time of Evaluation: 09:00 - Subjective Subjective: Patient was seen and examined by me. He was awake, alert, answering questions - he reported pain everwhere including his abdomen, chest, headache - he looks extremely depressed. A sagastume was started due to ongoing urinary retention. Urine culture was negative, repeat UA looked better. The CT scan of abdomen and pelvis reporting bladder wall thickening suggestive of cystitis. As previously mentioned he had positive blood cultures for staph aureus x 2. The WBC is still elevated. BP is now elevated. Objective - Vital Signs/Intake and Output Vital Signs (last 24 hours): Temp Pulse Resp BP Pulse Ox 100 F H 95 H 23 162/74 H 98 07/24/18 08:00 07/24/18 09:00 07/24/18 09:00 07/24/18 08:46 07/24/18 06:00 Intake and Output: 07/24/18 07/24/18 06:59 18:59 Intake Total 600 200 Output Total 1200 300 Balance -600 -100 - Medications Medications: Current Medications Acetaminophen (Tylenol 325mg Tab) 650 mg PO Q6 PRN PRN Reason: Pain, Mild (1-3) Last Admin: 07/24/18 08:46 Dose: 650 mg Aspirin (Ecotrin) 81 mg PO DAILY [facility] Last Admin: 07/23/18 09:41 Dose: 81 mg Dextrose (Dextrose 50% Inj) 0 ml IV STAT PRN; Protocol PRN Reason: Hypoglycemia Protocol Last Admin: 07/22/18 11:53 Dose: 50 ml Dextrose (Glutose 15) 0 gm PO ONCE PRN; Protocol PRN Reason: Hypoglycemia Protocol Enalapril Maleate (Vasotec) 30 mg PO DAILY [facility] Gabapentin (Neurontin) 100 mg PO TID [facility] Last Admin: 07/23/18 17:24 Dose: 100 mg Glucagon (Glucagen Diagnostic Kit) 0 mg IM STAT PRN; Protocol PRN Reason: Hypoglycemia Protocol Heparin Sodium (Porcine) (Heparin) 5,000 units SC Q12 [facility] Last Admin: 07/23/18 21:58 Dose: 5,000 units Dextrose (Dextrose 5% In Water 1000 Ml) 1,000 mls @ 0 mls/hr IV .Q0M PRN; Protocol PRN Reason: Hypoglycemia Protocol Piperacillin Sod/Tazobactam Sod (Zosyn 2.25 Gm Iv Premix) 2.25 gm in 50 mls @ 100 mls/hr IVPB Q6H [facility]; Protocol Last Admin: 07/24/18 05:00 Dose: 100 mls/hr Vancomycin/Sodium Chloride (Vancomycin 1 Gm/Ns 200 Ml) 1 gm in 200 mls @ 166.6 mls/hr IVPB Q12H [facility]; Protocol Stop: 07/27/18 21:01 Last Admin: 07/23/18 20:20 Dose: 166.6 mls/hr Insulin Human Regular (Novolin R) 0 unit SC ACHS [facility]; Protocol Last Admin: 07/24/18 08:47 Dose: 3 units Metoprolol Succinate (Toprol Xl) 25 mg PO BID [facility] Last Admin: 07/23/18 17:19 Dose: 25 mg Pantoprazole Sodium (Protonix Ec Tab) 40 mg PO DAILY [facility] - Labs Labs: 07/24/18 06:15 07/24/18 06:15 PT 15.6 SECONDS (9.7-12.2) H 07/21/18 20:28 INR 1.4 07/21/18 20:28 APTT 34 SECONDS (21-34) 07/21/18 20:28 - Constitutional Appears: Unkempt, Chronically Ill - Head Exam Head Exam: NORMAL INSPECTION - Eye Exam Eye Exam: EOMI, Normal appearance - ENT Exam Additional comments: History of left nostril removal Non bleeding - Cardiovascular Exam Cardiovascular Exam: REGULAR RHYTHM - GI/Abdominal Exam GI & Abdominal Exam: Soft, Tenderness, Normal Bowel Sounds. absent: Firm, Guarding, Rigid Additional comments: Tenderness, generalized. 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 He also has history of DM, HTN, and was last seen responsive at 3pm by . About 45 minutes later, patients return to find patient unresponsive, gurgling. Patient was intubated onsite by EMS w/ paralytics. This morning is on CPAP trial and hopefully extubated soon. Leucocytosis 07/24: WBC remains elevated. It should be noted the urine culture was negative - however the patient did not have a urine culture done in the ER. I ordered the culture after the patient had been admitted in the ICU and had already IV abx. The repeat UA is better. Given the patient's history we will get an echo in case he has endocarditis 07/23: Pending urine culture. Patient is now extubated and verbal and tells us he is having a lot of flank pain. Will order CT without contrast of the abomen and pelvis. The blood culture positive for gram + x 2 bottle. 07/22: WBC decreased to 11. Possible UTI source. On Zosyn and Doxyckine at this moment. Zosyn, Doxycyclin Pending Urine, Blood, and procalcitonin at this time. Unresponsiveness, respiratory distress, with no significant hypoxia on ABG 07/24: Remains nasal cannula, stable. 07/23: Now extubated, awake, alert, following commands 07/22: Awake this morning, moving arms. Interactive. He is gesturing to have tube removed. On CPAP trial this moment. - CTA: mild stenosis of L& R common carotid bifurcation as well proximal internal carotid arteries no acute pathology, no significant stenosis. 0-39% estimated stenosis - CT head: no acute infarcts, white matter consistent w/ calcification - Train of 4 tested in ICU with no movement suggesting effect of paralytics rather anoxia - continue to sedate until paralytic wears off - precedex 200 mcg 0.2 mcg/kg/hr - keppra 1000 mcg 420 mls/hr - Bedside EEG Urinary retention: Was observed to have large amounts of rention in the ICU, a sagastume cathter was started Urine culture was negative however he did not have the culture done in the ER and had it done after he was already in the ICU with IV abx running. The UA was suggestive of infection, and the repeat UA looks better now. 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 Prophylaxis - DVT: heparin 5000 units Q12 - GI: Protonix 40mg IVP daily
[2018-07-24] MEDS: Pantoprazole 40 mg EC Tab PO SCH (09:47)
[2018-07-24] MEDS: Vancomycin 1 gm/NS 200 ml 1 GM/200 ML BAG IVPB SCH ×2 (09:48→21:12)
[2018-07-24] MEDS: Metoprolol Succinate 25 mg XL Tab PO SCH ×2 (09:48→17:22)
--- NOTE | 2018-07-24 18:13 | CP.PCM.PN ---
Subjective - Date & Time of Evaluation Date of Evaluation: 07/24/18 Time of Evaluation: 08:00 - Subjective Subjective: MSSA sepsis May need KASH consider CT facial bones as well IV rx in progress Objective - Vital Signs/Intake and Output Vital Signs (last 24 hours): Temp Pulse Resp BP Pulse Ox 99.7 F H 89 18 138/41 L 97 07/24/18 17:25 07/24/18 17:00 07/24/18 17:00 07/24/18 14:49 07/24/18 12:00 Intake and Output: 07/24/18 07/24/18 06:59 18:59 Intake Total 600 1300 Output Total 1200 1115 Balance -600 185 - Medications Medications: Current Medications Acetaminophen (Tylenol 325mg Tab) 650 mg PO Q6 PRN PRN Reason: Fever >100.4 or Pain Last Admin: 07/24/18 16:40 Dose: 650 mg Aspirin (Ecotrin) 81 mg PO DAILY [facility] Last Admin: 07/24/18 09:49 Dose: 81 mg Dextrose (Dextrose 50% Inj) 0 ml IV STAT PRN; Protocol PRN Reason: Hypoglycemia Protocol Last Admin: 07/22/18 11:53 Dose: 50 ml Dextrose (Glutose 15) 0 gm PO ONCE PRN; Protocol PRN Reason: Hypoglycemia Protocol Enalapril Maleate (Vasotec) 30 mg PO DAILY [facility] Last Admin: 07/24/18 09:47 Dose: 30 mg Gabapentin (Neurontin) 100 mg PO TID [facility] Last Admin: 07/24/18 17:22 Dose: 100 mg Glucagon (Glucagen Diagnostic Kit) 0 mg IM STAT PRN; Protocol PRN Reason: Hypoglycemia Protocol Heparin Sodium (Porcine) (Heparin) 5,000 units SC Q12 [facility] Last Admin: 07/24/18 09:49 Dose: 5,000 units Dextrose (Dextrose 5% In Water 1000 Ml) 1,000 mls @ 0 mls/hr IV .Q0M PRN; Protocol PRN Reason: Hypoglycemia Protocol Piperacillin Sod/Tazobactam Sod (Zosyn 2.25 Gm Iv Premix) 2.25 gm in 50 mls @ 100 mls/hr IVPB Q6H [facility]; Protocol Last Admin: 07/24/18 16:17 Dose: 100 mls/hr Vancomycin/Sodium Chloride (Vancomycin 1 Gm/Ns 200 Ml) 1 gm in 200 mls @ 166.6 mls/hr IVPB Q12H [facility]; Protocol Stop: 07/27/18 21:01 Last Admin: 07/24/18 09:48 Dose: 166.6 mls/hr Insulin Human Regular (Novolin R) 0 unit SC ACHS [facility]; Protocol Last Admin: 07/24/18 16:18 Dose: 6 units Metoprolol Succinate (Toprol Xl) 25 mg PO BID [facility] Last Admin: 07/24/18 17:22 Dose: 25 mg Pantoprazole Sodium (Protonix Ec Tab) 40 mg PO DAILY [facility] Last Admin: 07/24/18 09:47 Dose: 40 mg - Labs Labs: 07/24/18 06:15 07/24/18 06:15 PT 15.6 SECONDS (9.7-12.2) H 07/21/18 20:28 INR 1.4 07/21/18 20:28 APTT 34 SECONDS (21-34) 07/21/18 20:28 - Constitutional Appears: No Acute Distress - Head Exam Head Exam: NORMOCEPHALIC - Eye Exam Eye Exam: PERRL. absent: Scleral icterus - ENT Exam ENT Exam: Mucous Membranes Dry - Neck Exam Neck Exam: absent: Thyromegaly - Respiratory Exam Respiratory Exam: Decreased Breath Sounds - Cardiovascular Exam Cardiovascular Exam: REGULAR RHYTHM - GI/Abdominal Exam GI & Abdominal Exam: Distended, Soft - Rectal Exam Rectal Exam: Deferred - Exam Exam: NORMAL INSPECTION - Extremities Exam Extremities Exam: absent: Pedal Edema - Back Exam Back Exam: absent: CVA tenderness (L), CVA tenderness (R) - Neurological Exam Neurological Exam: Alert, Awake - Skin Skin Exam: Dry Assessment and Plan (1) Respiratory failure Status: Acute (2) Toxic metabolic encephalopathy Status: Acute (3) Acute hyperglycemia Status: Acute (4) Sepsis Status: Acute (5) Sepsis affecting skin Status: Acute - Assessment and Plan (Free Text) Assessment: remains septic cardio on board - to eval echo ortho on board all cultures neg thus far cont Dapto/ Merrem/ Mycamine / TB meds
[2018-07-24] MEDS ORDERED: LABETALOL IVP ONE (20:30)
[2018-07-25] MEDS: Piperacill/Tazo 2.25gm in Dex 2.25 GM/50 ML BAG IVPB SCH ×3 (04:30→16:04)
[2018-07-25 06:57] LABS: BASO # 0.2 K/uL (0.0-0.2); BASO % 1.1 % (0.0-2.0); EOS # 0.3 K/uL (0.0-0.7); EOS % 1.9 % (0.0-4.0); HEMOGLOBIN 9.4 g/dL (12.0-18.0); LYMPH # 1.8 K/uL (1.0-4.3); LYMPH % 10.6 % (20.0-40.0); MEAN CELL VOLUME 87.5 fL (80.0-94.0); MEAN CORPUSCULAR HEMOGLOBIN 29.2 pg (27.0-31.0); MEAN CORPUSCULAR HGB CONC 33.3 g/dL (33.0-37.0); MEAN PLATELET VOLUME 9.9 fL (7.2-11.7); MONO % 5.5 % (0.0-10.0); NEUT # 14.1 K/uL (1.8-7.0); NEUT % 80.9 % (50.0-75.0); RBC 3.24 Mil/uL (4.40-5.90); WHITE BLOOD COUNT 17.4 K/uL (4.8-10.8)
[2018-07-25 07:03] LABS: ALB/GLOB RATIO 0.8 (1.0-2.1); ALBUMIN 2.8 g/dL (3.5-5.0); ALT/SGPT 27 U/L (21-72); AST/SGOT 47 U/L (17-59); BLOOD UREA NITROGEN 23 mg/dL (9-20); CALCIUM 7.6 mg/dl (8.6-10.4); GFR NON-AFRICAN AMERICAN > 60
--- NOTE | 2018-07-25 07:50 | CP.PCM.PN ---
<Molina Rodriguez - Last Filed: 07/25/18 15:03> Subjective - Date & Time of Evaluation Date of Evaluation: 07/25/18 Time of Evaluation: 07:46 - Subjective Subjective: Hospitalist Note for Dr Alston Service Pt seen and examined at bedside. Pt complains of generalized body aches. Pt described pains shooting in all extremities. Pt denies cp fc nv sob Objective - Vital Signs/Intake and Output Vital Signs (last 24 hours): Temp Pulse Resp BP Pulse Ox 99.8 F H 88 29 H 170/72 H 97 07/25/18 04:00 07/25/18 00:00 07/25/18 00:00 07/25/18 04:00 07/25/18 00:00 Intake and Output: 07/25/18 07/25/18 06:59 18:59 Intake Total 990 Output Total 1186 Balance -196 - Medications Medications: Current Medications Acetaminophen (Tylenol 325mg Tab) 650 mg PO Q6 PRN PRN Reason: Fever >100.4 or Pain Last Admin: 07/24/18 22:22 Dose: 650 mg Aspirin (Ecotrin) 81 mg PO DAILY [facility] Last Admin: 07/24/18 09:49 Dose: 81 mg Dextrose (Dextrose 50% Inj) 0 ml IV STAT PRN; Protocol PRN Reason: Hypoglycemia Protocol Last Admin: 07/22/18 11:53 Dose: 50 ml Dextrose (Glutose 15) 0 gm PO ONCE PRN; Protocol PRN Reason: Hypoglycemia Protocol Enalapril Maleate (Vasotec) 30 mg PO DAILY [facility] Last Admin: 07/24/18 09:47 Dose: 30 mg Gabapentin (Neurontin) 100 mg PO TID [facility] Last Admin: 07/24/18 17:22 Dose: 100 mg Glucagon (Glucagen Diagnostic Kit) 0 mg IM STAT PRN; Protocol PRN Reason: Hypoglycemia Protocol Heparin Sodium (Porcine) (Heparin) 5,000 units SC Q12 [facility] Last Admin: 07/24/18 21:14 Dose: 5,000 units Piperacillin Sod/Tazobactam Sod (Zosyn 2.25 Gm Iv Premix) 2.25 gm in 50 mls @ 100 mls/hr IVPB Q6H [facility]; Protocol Last Admin: 07/25/18 04:30 Dose: 100 mls/hr Vancomycin/Sodium Chloride (Vancomycin 1 Gm/Ns 200 Ml) 1 gm in 200 mls @ 166.6 mls/hr IVPB Q12H [facility]; Protocol Stop: 07/27/18 21:01 Last Admin: 07/24/18 21:12 Dose: 166.6 mls/hr Insulin Human Regular (Novolin R) 0 unit SC ACHS [facility]; Protocol Last Admin: 07/24/18 21:43 Dose: Not Given Ketorolac Tromethamine (Toradol) 30 mg IVP STAT STA Stop: 07/25/18 07:46 Metoprolol Succinate (Toprol Xl) 25 mg PO BID [facility] Last Admin: 07/24/18 17:22 Dose: 25 mg Pantoprazole Sodium (Protonix Ec Tab) 40 mg PO DAILY [facility] Last Admin: 07/24/18 09:47 Dose: 40 mg - Labs Labs: 07/25/18 06:32 07/25/18 06:32 PT 15.6 SECONDS (9.7-12.2) H 07/21/18 20:28 INR 1.4 07/21/18 20:28 APTT 34 SECONDS (21-34) 07/21/18 20:28 - Additional Findings Additional findings: Head: Positive for: Atraumatic, Normocephalic Pupils: Positive for: PERRL Extroacular Muscles: Positive for: EOMI Conjunctiva: Positive for: Normal Mouth: Positive for: Moist Mucous Membranes Nose (External): Positive for: Lesions (L nasal cartilage erosion, not acute ) Respiratory/Chest: Positive for: Clear to Auscultation, Good Air Exchange. Negative for: Respiratory Distress, Accessory Muscle Use Cardiovascular: Positive for: Regular Rate and Rhythm ( ) Abdomen: Positive for: Normal Bowel Sounds. 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) Neurological: Positive for: GCS=15, CN II-XII Intact Skin: Positive for: Warm, Dry, Normal Color Psychiatric: Positive for: Alert Assessment and Plan - Assessment and Plan (Free Text) Assessment: Patient is a 53 yo male with a history of uncontrolled T2DM (s/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 Code stroke was called, and CT head was negative for acute findings. Patient was intubated and placed on sedation. He was successfully extubated <24hrs after admission. Patient's blood cultures are positive for Staph aureus. Jin inserted due to urinary retention and urology consulted. Patient is stable to be transferred to med/surg unit. Plan: StaphA Bacteremia: - ID consulted (Jose) - Blood Cx 2/2 positive for Staph aureus - Vancomycin 1 g IV Q12H- trough 14.8 - Zosyn 2.25 mg IV Q6H - Leukocytosis stable- L shift - Tmax 100.4 07/23 10PM - Tylenol 650 mg PO Q6H PRN - Procal 14.74 - UA: many magda, 340 WBC, trace LE, neg nitrate - Urine Cx no growth - Repeat UA: neg LE, neg nitrate, 4 WBC - Repeat Urine Cx no growth - Echo pending - Wound care consulted for L facial erosion L Maxillofacial Ulcer -Vanc Zosyn IV -CT 07/25: soft tissue swelling, no osteomyelitis or drainable fluid -wound care consulted -Pt following up with plastic surgeon at [facility] sep 04 Unresponsiveness - resolved - Code stroke - CT head: no acute findings - CTA head and neck: no significant stenoses or abnormalities - PRL wnl (12.9) - Gabapentin 100 mg PO TID - Neurology consulted (Manda)- no need for anticonvulsant at this time - PT/OT/ST HTN - Monitor vitals- patient persistently hypertensive - ASA 81 mg PO daily - Increase Enalapril to 30 mg PO daily - Start Metoprolol 25 mg PO BID CAP - CXR: no acute findings - CT A/P: LLL consolidaation vs atelectasis - Maintain spO2>92%- NC PRN - ABG: acidosis resolved AIDA - Elevated BUN, Cr improved - I's & O's - Replete electrolytes PRN - Hyponatremia (129) - Serum osm, urine electrolytes pending - Jin reinserted 07/23 2/2 urinary retention - CT A/P: bladder wall thickening (cystitis), b/l renal parenchymal high density may be underlying metabolic disorder - Urology consulted (Titi Kam) recs: DM type 2 - A1c 8.9 - Maintain euglycemia - Hypoglycemia protocol - Accuchecks ACHS with medium dose Novolin R ISS Ppx: VTE: Heparin 5000 units Q12H GI: Protonix 40 mg PO daily <AlstonGalen morrison H - Last Filed: 07/28/18 07:15> Objective - Vital Signs/Intake and Output Vital Signs (last 24 hours): Temp Pulse Resp BP Pulse Ox 97.6 F 69 18 128/76 98 07/28/18 00:00 07/28/18 00:00 07/28/18 00:00 07/28/18 00:00 07/28/18 00:00 Intake and Output: 07/28/18 07/28/18 06:59 18:59 Intake Total Output Total Balance - Medications Medications: Current Medications Acetaminophen (Tylenol 325mg Tab) 650 mg PO Q6 PRN PRN Reason: Fever >100.4 or Pain Last Admin: 07/27/18 13:04 Dose: 650 mg Aspirin (Ecotrin) 81 mg PO DAILY [facility] Last Admin: 07/27/18 10:58 Dose: 81 mg Dextrose (Dextrose 50% Inj) 0 ml IV STAT PRN; Protocol PRN Reason: Hypoglycemia Protocol Last Admin: 07/22/18 11:53 Dose: 50 ml Dextrose (Glutose 15) 0 gm PO ONCE PRN; Protocol PRN Reason: Hypoglycemia Protocol Docusate Sodium (Colace) 100 mg PO BID [facility] Last Admin: 07/27/18 17:06 Dose: 100 mg Enalapril Maleate (Vasotec) 30 mg PO DAILY [facility] Last Admin: 07/27/18 10:57 Dose: 30 mg Finasteride (Proscar) 5 mg PO DAILY [facility] Gabapentin (Neurontin) 100 mg PO TID [facility] Last Admin: 07/27/18 18:30 Dose: Not Given Glucagon (Glucagen Diagnostic Kit) 0 mg IM STAT PRN; Protocol PRN Reason: Hypoglycemia Protocol Cefazolin Sodium 2,000 mg/ (Sodium Chloride) 50 mls @ 100 mls/hr IVPB Q8H [facility]; Protocol Last Admin: 07/28/18 03:07 Dose: 100 mls/hr Insulin Glargine (Lantus) 10 unit SC DAILY [facility] Last Admin: 07/27/18 11:00 Dose: 10 u Insulin Human Regular (Novolin R) 0 unit SC ACHS [facility]; Protocol Last Admin: 07/27/18 21:43 Dose: Not Given Metoprolol Succinate (Toprol Xl) 50 mg PO DAILY [facility] Last Admin: 07/27/18 10:58 Dose: 50 mg Mupirocin (Bactroban Ointment) 0 gm TOP BID [facility] Last Admin: 07/27/18 17:10 Dose: 1 applic Oxycodone/Acetaminophen (Percocet 5/325 Mg Tab) 1 tab PO Q6H PRN PRN Reason: Pain, moderate (4-7) Stop: 07/29/18 09:10 Last Admin: 07/28/18 01:23 EDT Dose: 1 tab Pantoprazole Sodium (Protonix Ec Tab) 40 mg PO DAILY [facility] Last Admin: 07/27/18 10:58 Dose: 40 mg Tamsulosin HCl (Flomax) 0.4 mg PO BID [facility] Last Admin: 07/27/18 17:08 Dose: 0.4 mg - Labs Labs: 07/27/18 07:09 07/27/18 07:09 PT 15.6 SECONDS (9.7-12.2) H 07/21/18 20:28 INR 1.4 07/21/18 20:28 APTT 34 SECONDS (21-34) 07/21/18 20:28 Attending/Attestation - Attestation I have personally seen and examined this patient.: Yes I have fully participated in the care of the patient.: Yes I have reviewed all pertinent clinical information, including history, physical exam and plan: Yes Notes (Text): 07/28/18 07:10 Medical attending: Patient was seen and examined by me and the resident. Agree with the above note by the resident The patient was not in any acute distress - however given everything that he has been through he appears to be very depressed. At this time he is on IV abx and also we are pending facial CT scan and also as previously mentioned that there are positive blood cultures noted gram positive. Galen Alston 07/28/18 07:14
[2018-07-25] MEDS: Metoprolol Succinate 25 mg XL Tab PO SCH ×2 (09:32→17:00)
[2018-07-25] MEDS: Pantoprazole 40 mg EC Tab PO SCH (09:32)
[2018-07-25] MEDS: (Novolin R) Insulin Human Regular 100 units/ml vial SC SCH ×4 (09:32→21:56)
[2018-07-25] MEDS: Vancomycin 1 gm/NS 200 ml 1 GM/200 ML BAG IVPB SCH (11:00)
--- NOTE | 2018-07-25 13:41 | PCM.EEG ---
Electroencephalogram Report - Electroencephalogram Report Procedure Date: 07/22/18 Medication: ASA, Gabapentin, keppra Interpretation: . Technical Information: This was a 16-channel EEG, 1-channel EKG , performed using an [employer] equipment., electrodes were applied according to the 10/20 international placement system, impedances were less than 5 K Ohm. Clinical Information: Alter mental status. FINDINGS; During the entire study was not discernible awake EEG architecture, the tracing showed diffuse SLOWING with frequencies in the 4 to 5 Hz., there was minimal reactivity of the EEG when stimulated with bi frontal muscle artifact and frequencies going up into the 6 to 7 Hz range still poorly organized. Drowsiness not seen, sleep not seen. Hyperventilation was not performed. Photic stimulation was not performed. Interictal activity; none Focal abnormality; none Impression: This is an abnormal EEG record that demonstrate the presence of severe non specific diffuse disturbance of cortical activity, this is keeping with a diffuse taylor matter dysfunction, these findings re not specific. No seizures recorded, patient is not in status epilepticus.
--- NOTE | 2018-07-25 14:50 | CT ---
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 TECHNIQUE: Contiguous axial CT images of the maxillofacial bones were obtained. Coronal and sagittal reformats were generated. Radiation dose: Total exam DLP = 769.15 mGy-cm. This CT exam was performed using one or more of the following dose reduction techniques: Automated exposure control, adjustment of the mA and/or kV according to patient size, and/or use of iterative reconstruction technique. FINDINGS: NASAL BONES: The nasal bones and nasal septum are intact. There is a soft tissue defect in the left lateral nasal wall. ORBITS: The globes are symmetric. No intraconal or extraconal abnormality. PARANASAL SINUSES/ MASTOIDS: Well developed and well aerated. There is mild mucosal thickening in the left sphenoid chamber. The mastoid air cells are clear. MAXILLA: Unremarkable. MANDIBLE/ TEMPOROMANDIBULAR JOINTS: Unremarkable. SKULL BASE: Unremarkable. TEMPORAL BONES: Middle ears and mastoid grossly unremarkable. OTHER FINDINGS: There is soft tissue thickening and swelling overlying the midline maxilla. No drainable collection. IMPRESSION: Soft tissue swelling and thickening overlying the midline maxilla and soft tissue defect in the left lateral nasal wall. Findings may represent aggressive infection/inflammation. No CT evidence for osteomyelitis or drainable fluid collection.
--- NOTE | 2018-07-25 18:59 | CP.PCM.PN ---
Subjective - Date & Time of Evaluation Date of Evaluation: 07/25/18 Time of Evaluation: 08:00 - Subjective Subjective: still c/o body pain alert and responsive Objective - Vital Signs/Intake and Output Vital Signs (last 24 hours): Temp Pulse Resp BP Pulse Ox 98.7 F 69 20 172/82 H 99 07/25/18 15:39 07/25/18 15:39 07/25/18 15:39 07/25/18 15:39 07/25/18 15:39 Intake and Output: 07/25/18 07/25/18 06:59 18:59 Intake Total 990 680 Output Total 1186 400 Balance -196 280 - Medications Medications: Current Medications Acetaminophen (Tylenol 325mg Tab) 650 mg PO Q6 PRN PRN Reason: Fever >100.4 or Pain Last Admin: 07/25/18 09:30 Dose: 650 mg Aspirin (Ecotrin) 81 mg PO DAILY [facility] Last Admin: 07/25/18 09:32 Dose: 81 mg Dextrose (Dextrose 50% Inj) 0 ml IV STAT PRN; Protocol PRN Reason: Hypoglycemia Protocol Last Admin: 07/22/18 11:53 Dose: 50 ml Dextrose (Glutose 15) 0 gm PO ONCE PRN; Protocol PRN Reason: Hypoglycemia Protocol Enalapril Maleate (Vasotec) 30 mg PO DAILY [facility] Last Admin: 07/25/18 09:31 Dose: 30 mg Gabapentin (Neurontin) 100 mg PO TID [facility] Last Admin: 07/25/18 17:52 Dose: 100 mg Glucagon (Glucagen Diagnostic Kit) 0 mg IM STAT PRN; Protocol PRN Reason: Hypoglycemia Protocol Cefazolin Sodium 2,000 mg/ (Sodium Chloride) 50 mls @ 100 mls/hr IVPB Q8H [facility]; Protocol Insulin Human Regular (Novolin R) 0 unit SC ACHS [facility]; Protocol Last Admin: 07/25/18 17:52 Dose: 3 units Ketorolac Tromethamine (Toradol) 30 mg IVP Q6 PRN PRN Reason: Pain, moderate (4-7) Last Admin: 07/25/18 16:48 Dose: 30 mg Metoprolol Succinate (Toprol Xl) 25 mg PO BID [facility] Last Admin: 07/25/18 17:00 Dose: 25 mg Pantoprazole Sodium (Protonix Ec Tab) 40 mg PO DAILY [facility] Last Admin: 07/25/18 09:32 Dose: 40 mg - Labs Labs: 07/25/18 06:32 07/25/18 06:32 PT 15.6 SECONDS (9.7-12.2) H 07/21/18 20:28 INR 1.4 07/21/18 20:28 APTT 34 SECONDS (21-34) 07/21/18 20:28 - Constitutional Appears: Non-toxic, Chronically Ill - Head Exam Head Exam: NORMOCEPHALIC - Eye Exam Eye Exam: absent: Scleral icterus - ENT Exam ENT Exam: Mucous Membranes Dry, Normal Oropharynx. absent: Normal Exam Additional comments: left nares defect noted - Neck Exam Neck Exam: absent: Lymphadenopathy - Respiratory Exam Respiratory Exam: Decreased Breath Sounds - Cardiovascular Exam Cardiovascular Exam: REGULAR RHYTHM - GI/Abdominal Exam GI & Abdominal Exam: Distended, Soft - Rectal Exam Rectal Exam: Deferred - Exam Exam: NORMAL INSPECTION - Extremities Exam Additional comments: bilat bka - Back Exam Back Exam: absent: CVA tenderness (L), CVA tenderness (R) - Neurological Exam Neurological Exam: Alert, Awake, Oriented x3 Assessment and Plan (1) Respiratory failure Status: Acute (2) Toxic metabolic encephalopathy Status: Acute (3) Acute hyperglycemia Status: Acute (4) Sepsis Status: Acute (5) Sepsis affecting skin Status: Acute - Assessment and Plan (Free Text) Assessment: severe sepsis with MSSA in blood- source unclear switched to hi dose Ancef 2g q8h consider CT facial bones- r/o OM KASH to r/o Endocarditis cont IV rx for 6 weeks if no source found
[2018-07-26] MEDS: (Novolin R) Insulin Human Regular 100 units/ml vial SC SCH ×4 (07:54→21:46)
[2018-07-26 08:22] LABS: BASO # 0.2 K/uL (0.0-0.2); BASO % 1.2 % (0.0-2.0); EOS # 0.5 K/uL (0.0-0.7); HEMOGLOBIN 9.4 g/dL (12.0-18.0); LYMPH # 1.4 K/uL (1.0-4.3); LYMPH % 9.3 % (20.0-40.0); MEAN CELL VOLUME 87.3 fL (80.0-94.0); MEAN CORPUSCULAR HEMOGLOBIN 29.9 pg (27.0-31.0); MEAN CORPUSCULAR HGB CONC 34.3 g/dL (33.0-37.0); MEAN PLATELET VOLUME 8.8 fL (7.2-11.7); MONO # 0.9 K/uL (0.0-0.8); MONO % 5.9 % (0.0-10.0); NEUT # 12.2 K/uL (1.8-7.0); NEUT % 80.6 % (50.0-75.0); PLATELET COUNT 470 K/uL (130-400); RBC 3.15 Mil/uL (4.40-5.90); RED CELL DISTRIBUTION WIDTH 13.7 % (11.5-14.5); WHITE BLOOD COUNT 15.2 K/uL (4.8-10.8)
[2018-07-26 08:52] LABS: ALB/GLOB RATIO 0.7 (1.0-2.1); ALBUMIN 2.8 g/dL (3.5-5.0); ALT/SGPT 28 U/L (21-72); AST/SGOT 33 U/L (17-59); BLOOD UREA NITROGEN 20 mg/dL (9-20); CALCIUM 8.1 mg/dl (8.6-10.4); GFR NON-AFRICAN AMERICAN > 60
[2018-07-26 09:00] LABS: BANDS 2 % (0-2); EOSINOPHIL 6 % (0-4); LYMPHOCYTE 8 % (20-40); MONOCYTE 1 % (0-10); NEUTROPHIL 83 % (50-75); TOTAL CELLS COUNTED 100
[2018-07-26 09:01] LABS: HYPOCHROMIC SLIGHT; PLATELET ESTIMATE SLIGHTLY INCREASED (NORMAL); POLYCHROMIC SLIGHT
--- NOTE | 2018-07-26 09:16 | PCM.RRT ---
<Carloina Alvarado - Last Filed: 07/26/18 09:12> FINANCIAL INSTITUTION MANAGER Nurses Assessment - Situation Date: 07/26/18 New IV Insertion Tolerance: Good - Ventilator Settings FIO2 (% Oxygen): 50 - Constitutional Appears: No Acute Distress - Head Head Exam: NORMAL INSPECTION, NORMOCEPHALIC - Eyes Eye Exam: EOMI, Normal appearance - Respiratory Exam Respiratory Exam: Decreased Breath Sounds, NORMAL BREATHING PATTERN. absent: Rhonchi, Wheezes, Respiratory Distress - Cardiovascular Exam Cardiovascular Exam: REGULAR RHYTHM, +S1, +S2 Additional comments: tenderness to palpation of sternum - GI/Abdominal Exam GI & Abdominal Exam: Tenderness (LLQ), Normal Bowel Sounds - Neurological Exam Neurological Exam: Awake, Oriented x3 Plan - Assessment of Findings&Treatment Plan FINANCIAL INSTITUTION MANAGER was called for high blood pressure. Vitals were checked: BP 200/83, T97.5, HR 90, RR 20, O2 97% on RA. Patient complained of chest pain that started a few minutes prior, located midsternally. Troponin and EKG were ordered stat; will f/u results. Patient was just given Toradol for pain. Toradol was discontinued due to risk of increasing BP. Started Percocet 1 tab Q6 prn for pain. Metoprolol 50mg was ordered and given. Repeat vitals were 1777/75, HR 92. Will follow up results and continue to monitor vitals. <Nato Escobedo - Last Filed: 07/28/18 20:50> FINANCIAL INSTITUTION MANAGER Nurses Assessment - Vital Signs Vital Signs: Rapid Response Vital Sign Blood Pressure 206/84 Pulse Rate 90 Respiratory Rate 20 Temperature 97.5 F Oxygen Saturation 97 - Vital Signs at end of FINANCIAL INSTITUTION MANAGER Vital Signs at end of FINANCIAL INSTITUTION MANAGER: Rapid Response End Vital Sign Blood Pressure 177/75 Pulse Rate 90 Respiratory Rate 20 Temperature 97.5 F O2 Sat by Pulse Oximetry 97 Attending/Attestation - Attestation I have personally seen and examined this patient.: Yes I have fully participated in the care of the patient.: Yes I have reviewed all pertinent clinical information, including history, physical exam and plan: Yes
[2018-07-26] MEDS: Pantoprazole 40 mg EC Tab PO SCH (09:24)
[2018-07-26] MEDS: Metoprolol Succinate 50 mg XL Tab PO SCH (09:29)
--- NOTE | 2018-07-26 12:49 | CP.PCM.PN ---
Subjective - Date & Time of Evaluation Date of Evaluation: 07/26/18 Time of Evaluation: 12:44 - Subjective Subjective: Daciajenn Rodriguez PGY1 Progress Note for Dr. Jon Pt was examined at bedside this morning. He complained of lower back pain that radiates to both legs. He said the pain started recently. He also reports associated numbness in both legs. He also complains of left sided abdominal pain that began a couple of days ago. He denies associated nausea or vomiting. He cannot remember his last BM. He reports discomfort with his sagastume catheter and burning with urination. He also complains of a headache and dizziness. He denies shortness of breath and chest pain. FLAT BREAKDOWN PROCESSOR was called at 9am this morning for elevated BP. Pt was given metoprolol. EKG and troponins were obtained. Please see FLAT BREAKDOWN PROCESSOR note for details. Objective - Vital Signs/Intake and Output Vital Signs (last 24 hours): Temp Pulse Resp BP Pulse Ox 97.1 F L 70 20 175/75 H 97 07/26/18 00:11 07/26/18 01:10 07/26/18 01:10 07/26/18 09:18 07/26/18 00:11 Intake and Output: 07/26/18 07/26/18 06:59 18:59 Intake Total 1980 Output Total 1500 Balance 480 - Medications Medications: Current Medications Acetaminophen (Tylenol 325mg Tab) 650 mg PO Q6 PRN PRN Reason: Fever >100.4 or Pain Last Admin: 07/25/18 09:30 Dose: 650 mg Aspirin (Ecotrin) 81 mg PO DAILY [facility] Last Admin: 07/26/18 09:35 Dose: 81 mg Dextrose (Dextrose 50% Inj) 0 ml IV STAT PRN; Protocol PRN Reason: Hypoglycemia Protocol Last Admin: 07/22/18 11:53 Dose: 50 ml Dextrose (Glutose 15) 0 gm PO ONCE PRN; Protocol PRN Reason: Hypoglycemia Protocol Docusate Sodium (Colace) 100 mg PO BID [facility] Last Admin: 07/26/18 09:25 Dose: 100 mg Enalapril Maleate (Vasotec) 30 mg PO DAILY [facility] Last Admin: 07/26/18 09:18 Dose: 30 mg Gabapentin (Neurontin) 100 mg PO TID [facility] Last Admin: 07/26/18 09:24 Dose: 100 mg Glucagon (Glucagen Diagnostic Kit) 0 mg IM STAT PRN; Protocol PRN Reason: Hypoglycemia Protocol Cefazolin Sodium 2,000 mg/ (Sodium Chloride) 50 mls @ 100 mls/hr IVPB Q8H [facility]; Protocol Last Admin: 07/26/18 10:30 Dose: 100 mls/hr Insulin Human Regular (Novolin R) 0 unit SC ACHS [facility]; Protocol Last Admin: 07/26/18 12:23 Dose: 6 units Metoprolol Succinate (Toprol Xl) 50 mg PO DAILY [facility] Last Admin: 07/26/18 09:29 Dose: 50 mg Mupirocin (Bactroban Ointment) 2 gm TOP BID [facility] Oxycodone/Acetaminophen (Percocet 5/325 Mg Tab) 1 tab PO Q6H PRN PRN Reason: Pain, moderate (4-7) Stop: 07/29/18 09:10 Pantoprazole Sodium (Protonix Ec Tab) 40 mg PO DAILY [facility] Last Admin: 07/26/18 09:24 Dose: 40 mg - Labs Labs: 07/26/18 08:12 07/26/18 08:12 PT 15.6 SECONDS (9.7-12.2) H 07/21/18 20:28 INR 1.4 07/21/18 20:28 APTT 34 SECONDS (21-34) 07/21/18 20:28 - Constitutional Appears: Well, No Acute Distress - Head Exam Head Exam: NORMOCEPHALIC - Eye Exam Eye Exam: EOMI, Normal appearance, PERRL Pupil Exam: NORMAL ACCOMODATION - ENT Exam ENT Exam: Mucous Membranes Moist Additional comments: ulceration on L nare with cartilage visible and surrounding erythema. No drain age noted - Neck Exam Neck Exam: Normal Inspection - Respiratory Exam Respiratory Exam: Clear to Ausculation Bilateral, NORMAL BREATHING PATTERN. absent: Rales, Rhonchi, Wheezes - Cardiovascular Exam Cardiovascular Exam: REGULAR RHYTHM, +S1, +S2. absent: Gallop, Rubs, Murmur - GI/Abdominal Exam GI & Abdominal Exam: Soft, Tenderness, Normal Bowel Sounds. absent: Distended, Firm Additional comments: tenderness to palpation of LLQ. - Extremities Exam Additional comments: b/l knee amputation sensory deficit on posterior legs b/l - Back Exam Additional comments: tenderness to palpation of midline lower back - Neurological Exam Neurological Exam: Alert, Awake, Motor Sensory Deficit, Oriented x3 - Psychiatric Exam Psychiatric exam: Normal Affect, Normal Mood Assessment and Plan - Assessment and Plan (Free Text) Assessment: 53 yo male with a history of uncontrolled T2DM (s/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 Patient's blood cultures are positive for Staph aureus, currently being treated for bacteremia. Plan: Staph Aureus Bacteremia: - Blood Cx positive for Staph aureus - start ancef 2000mg IV q8h, as per ID - 6 week course antibiotic treatment, as per ID - Tmax 100.4 07/23 10PM - Tylenol 650 mg PO Q6H PRN - Procal 14.74 - UA 07/21: many magda, 340 WBC, trace LE, negative nitrate - UA 07/23: negative LE, negative nitrates - Urine Cx: no growth - Echo pending reading, r/o endocarditis - ID consulted - Mangia L Maxillofacial Ulcer - start ancef 2000mg IV q8h, as per ID - start mupirocin 2g top BID - 6 week course antibiotic treatment, as per ID - CT 07/25: soft tissue swelling, no osteomyelitis or drainable fluid - wound care consulted - Pt following up with plastic surgeon at [facility] sep 04 - ID consulted - Jose HTN - Monitor vitals- patient persistently hypertensive - ASA 81 mg PO daily - Enalapril 30 mg PO daily - Metoprolol 50 mg PO daily CAP - CXR: no acute findings - CT A/P: LLL consolidaation vs atelectasis - ancef 2000mg IV q8h AIDA - BUN/Cr 20/0.9 - I/O: 760ml - Replete electrolytes PRN - Hyponatremia (129) Urinary Retention - CT A/P: bladder wall thickening (cystitis), b/l renal parenchymal high density may be underlying metabolic disorder - d/c sagastume - flomax 0.4mg PO BID - consider bladder scan if further retention - Urology consulted (Titi Kam) f/u recs Unresponsiveness - resolved, pt AAOx3 - Code stroke - EEG: nonspecific abnormalities, no seizures noted - CT head: no acute findings - CTA head and neck: no significant stenoses or abnormalities - PRL wnl (12.9) - Gabapentin 100 mg PO TID - Neurology consulted: Korya - no need for anticonvulsant at this time - PT/OT/ST DM type 2 - A1c 8.9 - medium dose Novolin R ISS - Hypoglycemia protocol - Cornelius MENENDEZ Ppx: VTE: Heparin 5000 units Q12H GI: Protonix 40 mg PO daily Pt seen with and case discussed with Dr. Jon
--- NOTE | 2018-07-26 15:33 | RAD ---
Date of service: 07/26/2018 HISTORY: verify left PICC COMPARISON: 07/22/2018 FINDINGS: The left PICC line terminates at the cavoatrial junction. LUNGS: There are low lung volumes. There is severe pulmonary venous congestion. There fluid in the minor fissure. PLEURA: No pleural effusions or pneumothorax. CARDIOVASCULAR: The heart is normal in size. No aortic atherosclerotic calcification present. OSSEOUS STRUCTURES: Within normal limits for the patient's age. VISUALIZED UPPER ABDOMEN: Normal. OTHER FINDINGS: None. IMPRESSION: Left PICC line terminates at the cavoatrial junction. Severe pulmonary venous congestion and fluid in the minor fissure.
--- NOTE | 2018-07-26 19:21 | CP.PCM.PN ---
Subjective - Date & Time of Evaluation Date of Evaluation: 07/26/18 Time of Evaluation: 08:00 - Subjective Subjective: CT FINDINGS NOTED AFEB ON IV RX CONT SAME CONSIDER CERETEC SCAN OR MRI VS EMPIR[facility] IV RX NO DRAINABLE ABSCESS Objective - Vital Signs/Intake and Output Vital Signs (last 24 hours): Temp Pulse Resp BP Pulse Ox 97.2 F L 80 20 169/71 H 97 07/26/18 15:12 07/26/18 15:12 07/26/18 15:12 07/26/18 15:12 07/26/18 15:12 Intake and Output: 07/26/18 07/27/18 18:59 06:59 Intake Total 600 Output Total 801 Balance -201 - Medications Medications: Current Medications Acetaminophen (Tylenol 325mg Tab) 650 mg PO Q6 PRN PRN Reason: Fever >100.4 or Pain Last Admin: 07/25/18 09:30 Dose: 650 mg Aspirin (Ecotrin) 81 mg PO DAILY [facility] Last Admin: 07/26/18 09:35 Dose: 81 mg Dextrose (Dextrose 50% Inj) 0 ml IV STAT PRN; Protocol PRN Reason: Hypoglycemia Protocol Last Admin: 07/22/18 11:53 Dose: 50 ml Dextrose (Glutose 15) 0 gm PO ONCE PRN; Protocol PRN Reason: Hypoglycemia Protocol Docusate Sodium (Colace) 100 mg PO BID [facility] Last Admin: 07/26/18 17:44 Dose: 100 mg Enalapril Maleate (Vasotec) 30 mg PO DAILY [facility] Last Admin: 07/26/18 09:18 Dose: 30 mg Gabapentin (Neurontin) 100 mg PO TID [facility] Last Admin: 07/26/18 17:44 Dose: 100 mg Glucagon (Glucagen Diagnostic Kit) 0 mg IM STAT PRN; Protocol PRN Reason: Hypoglycemia Protocol Cefazolin Sodium 2,000 mg/ (Sodium Chloride) 50 mls @ 100 mls/hr IVPB Q8H [facility]; Protocol Last Admin: 07/26/18 10:30 Dose: 100 mls/hr Insulin Human Regular (Novolin R) 0 unit SC ACHS [facility]; Protocol Last Admin: 07/26/18 12:23 Dose: 6 units Metoprolol Succinate (Toprol Xl) 50 mg PO DAILY [facility] Last Admin: 07/26/18 09:29 Dose: 50 mg Mupirocin (Bactroban Ointment) 0 gm TOP BID [facility] Last Admin: 07/26/18 17:44 Dose: 1 applic Oxycodone/Acetaminophen (Percocet 5/325 Mg Tab) 1 tab PO Q6H PRN PRN Reason: Pain, moderate (4-7) Stop: 07/29/18 09:10 Pantoprazole Sodium (Protonix Ec Tab) 40 mg PO DAILY [facility] Last Admin: 07/26/18 09:24 Dose: 40 mg Tamsulosin HCl (Flomax) 0.4 mg PO BID [facility] Last Admin: 07/26/18 17:44 Dose: 0.4 mg - Labs Labs: 07/26/18 08:12 07/26/18 08:12 PT 15.6 SECONDS (9.7-12.2) H 07/21/18 20:28 INR 1.4 07/21/18 20:28 APTT 34 SECONDS (21-34) 07/21/18 20:28 Assessment and Plan (1) Respiratory failure Status: Acute (2) Toxic metabolic encephalopathy Status: Acute (3) Acute hyperglycemia Status: Acute (4) Sepsis Status: Acute (5) Sepsis affecting skin Status: Acute
[2018-07-26] MEDS: Oxycodone/Acetaminophen 5/325 mg Tab PO PRN (20:30)
[2018-07-27] MEDS: Oxycodone/Acetaminophen 5/325 mg Tab PO PRN (03:00)
[2018-07-27 07:40] LABS: BASO # 0.1 K/uL (0.0-0.2); BASO % 0.5 % (0.0-2.0); EOS # 0.3 K/uL (0.0-0.7); EOS % 1.8 % (0.0-4.0); HEMOGLOBIN 8.1 g/dL (12.0-18.0); LYMPH # 1.8 K/uL (1.0-4.3); LYMPH % 11.5 % (20.0-40.0); MEAN CELL VOLUME 87.9 fL (80.0-94.0); MEAN CORPUSCULAR HEMOGLOBIN 29.7 pg (27.0-31.0); MEAN CORPUSCULAR HGB CONC 33.8 g/dL (33.0-37.0); MEAN PLATELET VOLUME 9.3 fL (7.2-11.7); MONO % 6.2 % (0.0-10.0); NEUT # 12.3 K/uL (1.8-7.0); RBC 2.73 Mil/uL (4.40-5.90); RED CELL DISTRIBUTION WIDTH 13.4 % (11.5-14.5); WHITE BLOOD COUNT 15.4 K/uL (4.8-10.8)
[2018-07-27 07:46] LABS: ALB/GLOB RATIO 0.8 (1.0-2.1); ALBUMIN 2.5 g/dL (3.5-5.0); ALT/SGPT 26 U/L (21-72); AST/SGOT 22 U/L (17-59); BLOOD UREA NITROGEN 16 mg/dL (9-20); CALCIUM 7.7 mg/dl (8.6-10.4); GFR NON-AFRICAN AMERICAN > 60
[2018-07-27] MEDS: (Novolin R) Insulin Human Regular 100 units/ml vial SC SCH ×4 (08:30→21:43)
[2018-07-27] MEDS: Metoprolol Succinate 50 mg XL Tab PO SCH (10:58)
[2018-07-27] MEDS: Pantoprazole 40 mg EC Tab PO SCH (10:58)
[2018-07-27] MEDS: (Lantus) Insulin Glargine, Recombinant SC SCH (11:00)
--- NOTE | 2018-07-27 12:26 | CP.PCM.PN ---
<Vazquez Valencia - Last Filed: 07/27/18 12:28> Subjective - Date & Time of Evaluation Date of Evaluation: 07/27/18 Time of Evaluation: 12:25 - Subjective Subjective: Progress note. Attending: Dr. Curiel. Pt seen and examined at bedside. Urology following, adding flomax and finasteride. has urinary retention and ordering renal ultrasound. Objective - Vital Signs/Intake and Output Vital Signs (last 24 hours): Temp Pulse Resp BP Pulse Ox 99.6 F 86 20 159/77 H 98 07/27/18 07:00 07/27/18 07:00 07/27/18 07:00 07/27/18 10:57 07/27/18 07:00 Intake and Output: 07/27/18 07/27/18 06:59 18:59 Intake Total 730 Output Total 800 1400 Balance -70 -1400 - Medications Medications: Current Medications Acetaminophen (Tylenol 325mg Tab) 650 mg PO Q6 PRN PRN Reason: Fever >100.4 or Pain Last Admin: 07/25/18 09:30 Dose: 650 mg Aspirin (Ecotrin) 81 mg PO DAILY [facility] Last Admin: 07/27/18 10:58 Dose: 81 mg Dextrose (Dextrose 50% Inj) 0 ml IV STAT PRN; Protocol PRN Reason: Hypoglycemia Protocol Last Admin: 07/22/18 11:53 Dose: 50 ml Dextrose (Glutose 15) 0 gm PO ONCE PRN; Protocol PRN Reason: Hypoglycemia Protocol Docusate Sodium (Colace) 100 mg PO BID [facility] Last Admin: 07/27/18 11:00 Dose: 100 mg Enalapril Maleate (Vasotec) 30 mg PO DAILY [facility] Last Admin: 07/27/18 10:57 Dose: 30 mg Gabapentin (Neurontin) 100 mg PO TID [facility] Last Admin: 07/27/18 10:57 Dose: 100 mg Glucagon (Glucagen Diagnostic Kit) 0 mg IM STAT PRN; Protocol PRN Reason: Hypoglycemia Protocol Cefazolin Sodium 2,000 mg/ (Sodium Chloride) 50 mls @ 100 mls/hr IVPB Q8H [facility]; Protocol Last Admin: 07/27/18 10:59 Dose: 100 mls/hr Insulin Glargine (Lantus) 10 unit SC DAILY [facility] Last Admin: 07/27/18 11:00 Dose: 10 u Insulin Human Regular (Novolin R) 0 unit SC ACHS [facility]; Protocol Last Admin: 07/27/18 12:22 Dose: 6 units Metoprolol Succinate (Toprol Xl) 50 mg PO DAILY [facility] Last Admin: 07/27/18 10:58 Dose: 50 mg Mupirocin (Bactroban Ointment) 0 gm TOP BID [facility] Last Admin: 07/27/18 11:00 Dose: 1 applic Oxycodone/Acetaminophen (Percocet 5/325 Mg Tab) 1 tab PO Q6H PRN PRN Reason: Pain, moderate (4-7) Stop: 07/29/18 09:10 Last Admin: 07/27/18 03:00 Dose: 1 tab Pantoprazole Sodium (Protonix Ec Tab) 40 mg PO DAILY [facility] Last Admin: 07/27/18 10:58 Dose: 40 mg Tamsulosin HCl (Flomax) 0.4 mg PO BID [facility] Last Admin: 07/27/18 10:58 Dose: 0.4 mg - Labs Labs: 07/27/18 07:09 07/27/18 07:09 PT 15.6 SECONDS (9.7-12.2) H 07/21/18 20:28 INR 1.4 07/21/18 20:28 APTT 34 SECONDS (21-34) 07/21/18 20:28 - Constitutional Appears: Unkempt, Older Than Stated Age, Chronically Ill - Head Exam Head Exam: ATRAUMATIC, NORMAL INSPECTION, NORMOCEPHALIC - Eye Exam Eye Exam: EOMI - ENT Exam ENT Exam: Mucous Membranes Moist. absent: Normal Exam - Neck Exam Neck Exam: Full ROM, Normal Inspection - Respiratory Exam Respiratory Exam: absent: Respiratory Distress - Cardiovascular Exam Cardiovascular Exam: +S1, +S2 - GI/Abdominal Exam GI & Abdominal Exam: Soft, Normal Bowel Sounds. absent: Tenderness - Extremities Exam Extremities Exam: absent: Full ROM, Normal Inspection - Neurological Exam Neurological Exam: Alert, Awake - Psychiatric Exam Psychiatric exam: Flat Affect - Skin Skin Exam: Dry, Intact, Normal Color, Warm Assessment and Plan - Assessment and Plan (Free Text) Assessment: This is a 53 yo male with a history of uncontrolled type 2 diabetes (s/p b/l BKA), HTN, and left facial cellulitis who presented to the ER after being found unresponsive by his at home. Staph Aureus Bacteremia: - Blood Cx positive for Staph aureus - start ancef 2000mg IV q8h, as per ID - 6 week course antibiotic treatment, as per ID - Tylenol 650 mg PO Q6H PRN - Procal 14.74 - UA 07/21: many magda, 340 WBC, trace LE, negative nitrate - UA 07/23: negative LE, negative nitrates - Urine Cx: no growth - Echo pending reading, r/o endocarditis - ID consulted - Jose Nettles Maxillofacial Ulcer - start ancef 2000mg IV q8h, as per ID - start mupirocin 2g top BID - 6 week course antibiotic treatment, as per ID - CT 07/25: soft tissue swelling, no osteomyelitis or drainable fluid - wound care consulted - Pt following up with plastic surgeon at [facility] sep 04 - ID consulted - Jose HTN - Monitor vitals- patient persistently hypertensive - Enalapril 30 mg PO daily - Metoprolol 50 mg PO daily CV risk reduction -asa 81 mg po daily CAP - CXR: no acute findings - CT A/P: LLL consolidaation vs atelectasis - ancef 2000mg IV q8h AIDA - BUN/Cr 20/0.9 - I/O: 760ml - Replete electrolytes PRN Urinary Retention - CT A/P: bladder wall thickening (cystitis), b/l renal parenchymal high density may be underlying metabolic disorder - flomax 0.4mg PO BID - consider bladder scan if further retention -ordering renal ultrasound today -consider finasteride - Urology consulted (Titi Kam) f/u recs Unresponsiveness - resolved, pt AAOx3 - Code stroke - EEG: nonspecific abnormalities, no seizures noted - CT head: no acute findings - CTA head and neck: no significant stenoses or abnormalities - PRL wnl (12.9) - Gabapentin 100 mg PO TID - Neurology consulted: Manda - no need for anticonvulsant at this time - PT/OT/ST DM type 2 - A1c 8.9 - medium dose Novolin R ISS - Hypoglycemia protocol - Accuchecks ACHS Ppx: VTE: Heparin 5000 units Q12H GI: Protonix 40 mg PO daily discussed with Dr. Curiel <Mila Curiel - Last Filed: 07/27/18 18:51> Objective - Vital Signs/Intake and Output Vital Signs (last 24 hours): Temp Pulse Resp BP Pulse Ox 98.3 F 87 20 135/68 95 07/27/18 16:03 07/27/18 16:03 07/27/18 16:03 07/27/18 16:03 07/27/18 16:03 Intake and Output: 07/27/18 07/27/18 06:59 18:59 Intake Total 730 580 Output Total 800 2100 Balance -70 -1520 - Medications Medications: Current Medications Acetaminophen (Tylenol 325mg Tab) 650 mg PO Q6 PRN PRN Reason: Fever >100.4 or Pain Last Admin: 07/27/18 13:04 Dose: 650 mg Aspirin (Ecotrin) 81 mg PO DAILY [facility] Last Admin: 07/27/18 10:58 Dose: 81 mg Dextrose (Dextrose 50% Inj) 0 ml IV STAT PRN; Protocol PRN Reason: Hypoglycemia Protocol Last Admin: 07/22/18 11:53 Dose: 50 ml Dextrose (Glutose 15) 0 gm PO ONCE PRN; Protocol PRN Reason: Hypoglycemia Protocol Docusate Sodium (Colace) 100 mg PO BID [facility] Last Admin: 07/27/18 17:06 Dose: 100 mg Enalapril Maleate (Vasotec) 30 mg PO DAILY [facility] Last Admin: 07/27/18 10:57 Dose: 30 mg Finasteride (Proscar) 5 mg PO DAILY [facility] Gabapentin (Neurontin) 100 mg PO TID [facility] Last Admin: 07/27/18 14:12 Dose: 100 mg Glucagon (Glucagen Diagnostic Kit) 0 mg IM STAT PRN; Protocol PRN Reason: Hypoglycemia Protocol Cefazolin Sodium 2,000 mg/ (Sodium Chloride) 50 mls @ 100 mls/hr IVPB Q8H [facility]; Protocol Last Admin: 07/27/18 10:59 Dose: 100 mls/hr Insulin Glargine (Lantus) 10 unit SC DAILY [facility] Last Admin: 07/27/18 11:00 Dose: 10 u Insulin Human Regular (Novolin R) 0 unit SC ACHS [facility]; Protocol Last Admin: 07/27/18 16:57 Dose: 6 units Metoprolol Succinate (Toprol Xl) 50 mg PO DAILY [facility] Last Admin: 07/27/18 10:58 Dose: 50 mg Mupirocin (Bactroban Ointment) 0 gm TOP BID [facility] Last Admin: 07/27/18 17:10 Dose: 1 applic Oxycodone/Acetaminophen (Percocet 5/325 Mg Tab) 1 tab PO Q6H PRN PRN Reason: Pain, moderate (4-7) Stop: 07/29/18 09:10 Last Admin: 07/27/18 03:00 Dose: 1 tab Pantoprazole Sodium (Protonix Ec Tab) 40 mg PO DAILY [facility] Last Admin: 07/27/18 10:58 Dose: 40 mg Tamsulosin HCl (Flomax) 0.4 mg PO BID [facility] Last Admin: 07/27/18 17:08 Dose: 0.4 mg - Labs Labs: 07/27/18 07:09 07/27/18 07:09 PT 15.6 SECONDS (9.7-12.2) H 07/21/18 20:28 INR 1.4 07/21/18 20:28 APTT 34 SECONDS (21-34) 07/21/18 20:28 Attending/Attestation - Attestation I have personally seen and examined this patient.: Yes I have fully participated in the care of the patient.: Yes I have reviewed all pertinent clinical information, including history, physical exam and plan: Yes Notes (Text): seen and examined by me patient was retaining urine,faley cath placed,retaining 1400ml urine started on flomax and Proscar. urology evaluation continue anc.Need 6 weeks of antibiotics seen by DR Garcia who recommends Ceretec scan or MRI follow Echocardiography d/w resident
[2018-07-27 13:29] LABS: URINE BILIRUBIN NEGATIVE (NEGATIVE); URINE BLOOD 1+ (NEGATIVE); URINE CLARITY Clear (Clear); URINE COLOR Yellow (YELLOW); URINE GLUCOSE (UA) 3+ mg/dL (Normal); URINE LEUKOCYTE ESTERASE NEG Leu/uL (Negative); URINE PROTEIN 2+ mg/dL (NEGATIVE); URINE UROBILINOGEN NORMAL mg/dL (0.2-1.0)
--- NOTE | 2018-07-27 18:49 | US ---
Date of service: 07/27/2018 PROCEDURE: Ultrasound of the Kidneys HISTORY: urinary retention COMPARISON: None available. TECHNIQUE: Sonogram of the kidneys. FINDINGS: RIGHT KIDNEY: Measures: 13.4 x 5.6 x 6.0 cm. Normal in size, contour and corticomedullary pattern. No stone, solid mass lesion or hydronephrosis visualized. LEFT KIDNEY: Measures: 14.1 x 6.2 x 6.1 cm. Normal in size, contour and corticomedullary pattern. No stone, solid mass lesion or hydronephrosis visualized. A cyst identified at the mid to lower pole region measure 1.3 x 0.7 x 1.1 cm, likely simple. OTHER FINDINGS: None. IMPRESSION: 1.2 cm simple cyst mid to lower pole left kidney. No definite obstructive uropathy bilaterally. No urolithiasis bilaterally.
[2018-07-28] MEDS: Oxycodone/Acetaminophen 5/325 mg Tab PO PRN ×3 (01:23→13:18)
[2018-07-28 08:25] LABS: ALB/GLOB RATIO 0.7 (1.0-2.1); ALBUMIN 2.5 g/dL (3.5-5.0); ALT/SGPT 21 U/L (21-72); AST/SGOT 17 U/L (17-59); BLOOD UREA NITROGEN 13 mg/dL (9-20); CALCIUM 7.5 mg/dl (8.6-10.4); GFR NON-AFRICAN AMERICAN > 60
[2018-07-28] MEDS: (Novolin R) Insulin Human Regular 100 units/ml vial SC SCH ×4 (08:27→22:00)
[2018-07-28 09:06] LABS: BASO # 0.1 K/uL (0.0-0.2); BASO % 0.5 % (0.0-2.0); EOS # 0.3 K/uL (0.0-0.7); EOS % 1.7 % (0.0-4.0); LYMPH # 1.7 K/uL (1.0-4.3); LYMPH % 10.7 % (20.0-40.0); MEAN CELL VOLUME 88.3 fL (80.0-94.0); MEAN CORPUSCULAR HEMOGLOBIN 29.5 pg (27.0-31.0); MEAN CORPUSCULAR HGB CONC 33.4 g/dL (33.0-37.0); MEAN PLATELET VOLUME 9.3 fL (7.2-11.7); MONO % 6.2 % (0.0-10.0); NEUT # 12.9 K/uL (1.8-7.0); NEUT % 80.9 % (50.0-75.0); NRBC % 0.1 % (0.0-2.0); RBC 2.73 Mil/uL (4.40-5.90); RED CELL DISTRIBUTION WIDTH 13.2 % (11.5-14.5); WHITE BLOOD COUNT 15.9 K/uL (4.8-10.8)
[2018-07-28] MEDS: (Lantus) Insulin Glargine, Recombinant SC SCH (10:40)
[2018-07-28] MEDS: Pantoprazole 40 mg EC Tab PO SCH (10:40)
[2018-07-28] MEDS: Metoprolol Succinate 50 mg XL Tab PO SCH (10:41)
--- NOTE | 2018-07-28 13:12 | CP.PCM.PN ---
Subjective - Date & Time of Evaluation Date of Evaluation: 07/28/18 Time of Evaluation: 12:00 - Subjective Subjective: Patient was seen and examined by me. Patient is currently on IV ancef at this time. As previously mentioned he was found on the ground unresponsive by family and intubated and brought to the ICU. Blood cultures showed that he was + for staph aureus and the urine analysis suggest UTI however urine culture was collected after IV abx had already been given. He had a sagastume placed in the ICU due to retention. It was removed, but then placed back in due to ongoing retnetion. Pending MRI of the face as there is a history of facial cellulitis resulting in damage to left nostril and cartilage erosion. He recently had CT scan of the facial area which did not report abscess Objective - Vital Signs/Intake and Output Vital Signs (last 24 hours): Temp Pulse Resp BP Pulse Ox 98.9 F 84 20 155/79 H 95 07/28/18 08:00 07/28/18 08:00 07/28/18 08:00 07/28/18 10:41 07/28/18 08:00 Intake and Output: 07/28/18 07/28/18 06:59 18:59 Intake Total Output Total Balance - Medications Medications: Current Medications Acetaminophen (Tylenol 325mg Tab) 650 mg PO Q6 PRN PRN Reason: Fever >100.4 or Pain Last Admin: 07/27/18 13:04 Dose: 650 mg Aspirin (Ecotrin) 81 mg PO DAILY [facility] Last Admin: 07/28/18 10:41 Dose: 81 mg Dextrose (Dextrose 50% Inj) 0 ml IV STAT PRN; Protocol PRN Reason: Hypoglycemia Protocol Last Admin: 07/22/18 11:53 Dose: 50 ml Dextrose (Glutose 15) 0 gm PO ONCE PRN; Protocol PRN Reason: Hypoglycemia Protocol Docusate Sodium (Colace) 100 mg PO BID [facility] Last Admin: 07/28/18 10:41 Dose: 100 mg Enalapril Maleate (Vasotec) 30 mg PO DAILY [facility] Last Admin: 07/28/18 10:41 Dose: 30 mg Finasteride (Proscar) 5 mg PO DAILY [facility] Last Admin: 07/28/18 10:41 Dose: 5 mg Gabapentin (Neurontin) 100 mg PO TID [facility] Last Admin: 07/28/18 10:40 Dose: 100 mg Glucagon (Glucagen Diagnostic Kit) 0 mg IM STAT PRN; Protocol PRN Reason: Hypoglycemia Protocol Cefazolin Sodium 2,000 mg/ (Sodium Chloride) 50 mls @ 100 mls/hr IVPB Q8H [facility]; Protocol Last Admin: 07/28/18 10:42 Dose: 100 mls/hr Insulin Glargine (Lantus) 10 unit SC DAILY [facility] Last Admin: 07/28/18 10:40 Dose: 10 u Insulin Human Regular (Novolin R) 0 unit SC ACHS [facility]; Protocol Last Admin: 07/28/18 12:42 Dose: 4 units Metoprolol Succinate (Toprol Xl) 50 mg PO DAILY [facility] Last Admin: 07/28/18 10:41 Dose: 50 mg Mupirocin (Bactroban Ointment) 0 gm TOP BID [facility] Last Admin: 07/28/18 10:42 Dose: 1 applic Oxycodone/Acetaminophen (Percocet 5/325 Mg Tab) 1 tab PO Q6H PRN PRN Reason: Pain, moderate (4-7) Stop: 07/29/18 09:10 Last Admin: 07/28/18 07:09 Dose: 1 tab Pantoprazole Sodium (Protonix Ec Tab) 40 mg PO DAILY [facility] Last Admin: 07/28/18 10:40 Dose: 40 mg Tamsulosin HCl (Flomax) 0.4 mg PO BID [facility] Last Admin: 07/28/18 10:41 Dose: 0.4 mg - Labs Labs: 07/28/18 07:55 07/28/18 07:55 PT 15.6 SECONDS (9.7-12.2) H 07/21/18 20:28 INR 1.4 07/21/18 20:28 APTT 34 SECONDS (21-34) 07/21/18 20:28 - Constitutional Appears: Unkempt, Chronically Ill - Head Exam Head Exam: NORMAL INSPECTION, NORMOCEPHALIC - Eye Exam Eye Exam: EOMI - ENT Exam ENT Exam: Mucous Membranes Moist Additional comments: left nostril missing - as reported previously. There is some old dry blood present No active bleeding at this time - Respiratory Exam Respiratory Exam: Clear to Ausculation Bilateral, NORMAL BREATHING PATTERN - Cardiovascular Exam Cardiovascular Exam: REGULAR RHYTHM - GI/Abdominal Exam GI & Abdominal Exam: Soft, Normal Bowel Sounds - Extremities Exam Additional comments: Bilateral BKA - Neurological Exam Neurological Exam: Alert, Awake Neuro motor strength exam: Left Upper Extremity: 5, Right Upper Extremity: 5 - Psychiatric Exam Psychiatric exam: Depressed, Flat Affect - Skin Skin Exam: Pallor, Warm Assessment and Plan - Assessment and Plan (Free Text) Assessment: This is a 53 yo male with a history of uncontrolled type 2 diabetes (s/p b/l BKA), HTN, and left facial cellulitis who presented to the ER after being found unresponsive by his at home. Staph Aureus Bacteremia: 07/28: Today repeat the blood culture. Patient remains on IV anceft at this time. - Blood Cx positive for Staph aureus - start ancef 2000mg IV q8h, as per ID - 6 week course antibiotic treatment, as per ID - Tylenol 650 mg PO Q6H PRN - Procal 14.74 - UA 07/21: many magda, 340 WBC, trace LE, negative nitrate - UA 07/23: negative LE, negative nitrates - Urine Cx: no growth - Echo pending reading, r/o endocarditis - ID consulted - Mangia L Maxillofacial Ulcer 07/28: MRI has been ordered. CT scan did not show any areas of drainable fluid. - start ancef 2000mg IV q8h, as per ID - start mupirocin 2g top BID - 6 week course antibiotic treatment, as per ID - CT 07/25: soft tissue swelling, no osteomyelitis or drainable fluid - wound care consulted - Pt following up with plastic surgeon at [facility] sep 04 - ID consulted - Jose HTN - Monitor vitals- patient persistently hypertensive - Enalapril 30 mg PO daily - Metoprolol 50 mg PO daily CV risk reduction -asa 81 mg po daily CAP - CXR: no acute findings - CT A/P: LLL consolidaation vs atelectasis - ancef 2000mg IV q8h AIDA - BUN/Cr 20/0.9 - I/O: 760ml - Replete electrolytes PRN Urinary Retention - CT A/P: bladder wall thickening (cystitis), b/l renal parenchymal high density may be underlying metabolic disorder - flomax 0.4mg PO BID - consider bladder scan if further retention -ordering renal ultrasound today -consider finasteride - Urology consulted (Titi Kam) f/u recs Unresponsiveness - resolved, pt AAOx3 - Code stroke - EEG: nonspecific abnormalities, no seizures noted - CT head: no acute findings - CTA head and neck: no significant stenoses or abnormalities - PRL wnl (12.9) - Gabapentin 100 mg PO TID - Neurology consulted: Manda - no need for anticonvulsant at this time - PT/OT/ST DM type 2 - A1c 8.9 - medium dose Novolin R ISS - Hypoglycemia protocol - Accuchlidia MENENDEZ Ppx: VTE: Heparin 5000 units Q12H GI: Protonix 40 mg PO daily
--- NOTE | 2018-07-28 16:16 | CP.PCM.PN ---
Subjective - Date & Time of Evaluation Date of Evaluation: 07/28/18 Time of Evaluation: 08:00 - Subjective Subjective: events noted IV rx in progress Objective - Vital Signs/Intake and Output Vital Signs (last 24 hours): Temp Pulse Resp BP Pulse Ox 99.6 F 78 20 167/79 H 97 07/28/18 15:37 07/28/18 15:37 07/28/18 15:37 07/28/18 15:37 07/28/18 15:37 Intake and Output: 07/28/18 07/28/18 06:59 18:59 Intake Total 260 Output Total 600 Balance -340 - Medications Medications: Current Medications Acetaminophen (Tylenol 325mg Tab) 650 mg PO Q6 PRN PRN Reason: Fever >100.4 or Pain Last Admin: 07/27/18 13:04 Dose: 650 mg Aspirin (Ecotrin) 81 mg PO DAILY [facility] Last Admin: 07/28/18 10:41 Dose: 81 mg Dextrose (Dextrose 50% Inj) 0 ml IV STAT PRN; Protocol PRN Reason: Hypoglycemia Protocol Last Admin: 07/22/18 11:53 Dose: 50 ml Dextrose (Glutose 15) 0 gm PO ONCE PRN; Protocol PRN Reason: Hypoglycemia Protocol Docusate Sodium (Colace) 100 mg PO BID [facility] Last Admin: 07/28/18 10:41 Dose: 100 mg Enalapril Maleate (Vasotec) 30 mg PO DAILY [facility] Last Admin: 07/28/18 10:41 Dose: 30 mg Finasteride (Proscar) 5 mg PO DAILY [facility] Last Admin: 07/28/18 10:41 Dose: 5 mg Gabapentin (Neurontin) 100 mg PO TID [facility] Last Admin: 07/28/18 14:24 Dose: 100 mg Glucagon (Glucagen Diagnostic Kit) 0 mg IM STAT PRN; Protocol PRN Reason: Hypoglycemia Protocol Cefazolin Sodium 2,000 mg/ (Sodium Chloride) 50 mls @ 100 mls/hr IVPB Q8H [facility]; Protocol Last Admin: 07/28/18 10:42 Dose: 100 mls/hr Insulin Glargine (Lantus) 10 unit SC DAILY [facility] Last Admin: 07/28/18 10:40 Dose: 10 u Insulin Human Regular (Novolin R) 0 unit SC ACHS [facility]; Protocol Last Admin: 07/28/18 12:42 Dose: 4 units Metoprolol Succinate (Toprol Xl) 50 mg PO DAILY [facility] Last Admin: 07/28/18 10:41 Dose: 50 mg Mupirocin (Bactroban Ointment) 0 gm TOP BID [facility] Last Admin: 07/28/18 10:42 Dose: 1 applic Oxycodone/Acetaminophen (Percocet 5/325 Mg Tab) 1 tab PO Q6H PRN PRN Reason: Pain, moderate (4-7) Stop: 07/29/18 09:10 Last Admin: 07/28/18 13:18 Dose: 1 tab Pantoprazole Sodium (Protonix Ec Tab) 40 mg PO DAILY [facility] Last Admin: 07/28/18 10:40 Dose: 40 mg Tamsulosin HCl (Flomax) 0.4 mg PO BID [facility] Last Admin: 07/28/18 10:41 Dose: 0.4 mg - Labs Labs: 07/28/18 07:55 07/28/18 07:55 PT 15.6 SECONDS (9.7-12.2) H 07/21/18 20:28 INR 1.4 07/21/18 20:28 APTT 34 SECONDS (21-34) 07/21/18 20:28 Assessment and Plan (1) Respiratory failure Status: Acute (2) Toxic metabolic encephalopathy Status: Acute (3) Acute hyperglycemia Status: Acute (4) Sepsis Status: Acute (5) Sepsis affecting skin Status: Acute
--- NOTE | 2018-07-28 21:14 | PCM.URO ---
Urology Progress Note - Subjective Weak Stream: Yes (maintain sagastume and out pt follow up ) - Objective Lab Results Last 24 Hours: Laboratory Results - last 24 hr 07/28/18 07/28/18 07/28/18 07:25 07:55 07:55 WBC 15.9 H RBC 2.73 L Hgb 8.0 L Hct 24.1 L MCV 88.3 MCH 29.5 MCHC 33.4 RDW 13.2 Plt Count 452 H MPV 9.3 Neut % (Auto) 80.9 H Lymph % (Auto) 10.7 L Kershaw % (Auto) 6.2 Eos % (Auto) 1.7 Baso % (Auto) 0.5 Neut # (Auto) 12.9 H Lymph # (Auto) 1.7 Kershaw # (Auto) 1.0 H Eos # (Auto) 0.3 Baso # (Auto) 0.1 Sodium 128 L Potassium 4.4 Chloride 97 L Carbon Dioxide 23 Anion Gap 13 BUN 13 Creatinine 0.8 Est GFR ( Amer) > 60 Est GFR (Non-Af Amer) > 60 POC Glucose (mg/dL) 261 H Random Glucose 238 H Calcium 7.5 L Phosphorus 3.4 Magnesium 1.8 Total Bilirubin 0.3 AST 17 D ALT 21 Alkaline Phosphatase 106 Total Protein 5.9 L Albumin 2.5 L Globulin 3.4 Albumin/Globulin Ratio 0.7 L 07/28/18 07/28/18 07/28/18 11:56 15:54 21:05 WBC RBC Hgb Hct MCV MCH MCHC RDW Plt Count MPV Neut % (Auto) Lymph % (Auto) Kershaw % (Auto) Eos % (Auto) Baso % (Auto) Neut # (Auto) Lymph # (Auto) Kershaw # (Auto) Eos # (Auto) Baso # (Auto) Sodium Potassium Chloride Carbon Dioxide Anion Gap BUN Creatinine Est GFR ( Amer) Est GFR (Non-Af Amer) POC Glucose (mg/dL) 286 H 264 H 183 H Random Glucose Calcium Phosphorus Magnesium Total Bilirubin AST ALT Alkaline Phosphatase Total Protein Albumin Globulin Albumin/Globulin Ratio Intake & Output: Intake & Output 07/28/18 07/28/18 07/29/18 06:59 18:59 06:59 Intake Total 260 Output Total 600 Balance -340 Intake: Intake, IV Amount 60 right upper arm 60 Oral 200 Output: Urine 600 Urethral (Sagastume) 600 Other: # Bowel Movements 1 Vital Signs: Vital Signs - 24 hr 07/28/18 07/28/18 07/28/18 00:00 08:00 10:41 Temperature 97.6 F 98.9 F Pulse Rate 69 84 Respiratory 18 20 Rate Blood Pressure 128/76 155/79 H 155/79 H O2 Sat by Pulse 98 95 Oximetry 07/28/18 15:37 Temperature 99.6 F Pulse Rate 78 Respiratory 20 Rate Blood Pressure 167/79 H O2 Sat by Pulse 97 Oximetry
[2018-07-29] MEDS: Oxycodone/Acetaminophen 5/325 mg Tab PO PRN ×4 (01:18→19:39)
[2018-07-29] MEDS: (Novolin R) Insulin Human Regular 100 units/ml vial SC SCH ×4 (08:12→21:55)
[2018-07-29 09:34] LABS: BASO # 0.1 K/uL (0.0-0.2); BASO % 0.7 % (0.0-2.0); EOS # 0.2 K/uL (0.0-0.7); EOS % 1.6 % (0.0-4.0); HEMOGLOBIN 8.1 g/dL (12.0-18.0); LYMPH # 1.5 K/uL (1.0-4.3); LYMPH % 10.4 % (20.0-40.0); MEAN CORPUSCULAR HEMOGLOBIN 29.5 pg (27.0-31.0); MEAN CORPUSCULAR HGB CONC 33.5 g/dL (33.0-37.0); MEAN PLATELET VOLUME 8.9 fL (7.2-11.7); MONO # 0.7 K/uL (0.0-0.8); NEUT # 12.2 K/uL (1.8-7.0); NEUT % 82.3 % (50.0-75.0); RBC 2.74 Mil/uL (4.40-5.90); RED CELL DISTRIBUTION WIDTH 13.5 % (11.5-14.5); WHITE BLOOD COUNT 14.8 K/uL (4.8-10.8)
[2018-07-29 09:59] LABS: ALB/GLOB RATIO 0.8 (1.0-2.1); ALBUMIN 2.5 g/dL (3.5-5.0); ALT/SGPT 18 U/L (21-72); AST/SGOT 26 U/L (17-59); BLOOD UREA NITROGEN 13 mg/dL (9-20); CALCIUM 7.9 mg/dl (8.6-10.4); GFR NON-AFRICAN AMERICAN > 60
[2018-07-29] MEDS: Metoprolol Succinate 50 mg XL Tab PO SCH (11:05)
[2018-07-29] MEDS: Pantoprazole 40 mg EC Tab PO SCH (11:06)
[2018-07-29] MEDS: (Lantus) Insulin Glargine, Recombinant SC SCH (11:06)
--- NOTE | 2018-07-29 12:13 | CARD ---
APPROVED REPORT Date of service: 07/26/2018 EKG Measurement Heart [id number] ND [id number] [id number] <Conclusion> Normal sinus rhythm Normal ECG
--- NOTE | 2018-07-29 13:38 | CP.PCM.PN ---
<Ronit Rodriguez - Last Filed: 07/29/18 14:38> Subjective - Date & Time of Evaluation Date of Evaluation: 07/29/18 Time of Evaluation: 09:00 - Subjective Subjective: Ronit Rodriguez PGY1 Progress Note for Dr. Curiel Pt was examined at bedside this morning. He continues to complain of lower back pain that radiates to the legs b/l. Pt reports numbness in the legs b/l. He also complains of shoulder pain and chest pain, which is b/l. Pt also reports headache. He denies dizziness, nausea, vomiting, pain with urination. Of note, he reports urinary retention over the past few days. Objective - Vital Signs/Intake and Output Vital Signs (last 24 hours): Temp Pulse Resp BP Pulse Ox 97.5 F L 87 20 152/76 H 96 07/29/18 08:05 07/29/18 08:05 07/29/18 08:05 07/29/18 11:05 07/29/18 08:05 Intake and Output: 07/29/18 07/29/18 06:59 18:59 Intake Total 350 300 Output Total 400 700 Balance -50 -400 - Medications Medications: Current Medications Acetaminophen (Tylenol 325mg Tab) 650 mg PO Q6 PRN PRN Reason: Fever >100.4 or Pain Last Admin: 07/28/18 17:28 Dose: 650 mg Aspirin (Ecotrin) 81 mg PO DAILY [facility] Last Admin: 07/29/18 11:06 Dose: 81 mg Dextrose (Dextrose 50% Inj) 0 ml IV STAT PRN; Protocol PRN Reason: Hypoglycemia Protocol Last Admin: 07/22/18 11:53 Dose: 50 ml Dextrose (Glutose 15) 0 gm PO ONCE PRN; Protocol PRN Reason: Hypoglycemia Protocol Docusate Sodium (Colace) 100 mg PO BID [facility] Last Admin: 07/29/18 11:05 Dose: 100 mg Enalapril Maleate (Vasotec) 30 mg PO DAILY [facility] Last Admin: 07/29/18 11:05 Dose: 30 mg Finasteride (Proscar) 5 mg PO DAILY [facility] Last Admin: 07/29/18 11:21 Dose: 5 mg Gabapentin (Neurontin) 100 mg PO TID [facility] Last Admin: 07/29/18 11:05 Dose: 100 mg Glucagon (Glucagen Diagnostic Kit) 0 mg IM STAT PRN; Protocol PRN Reason: Hypoglycemia Protocol Cefazolin Sodium 2,000 mg/ (Sodium Chloride) 50 mls @ 100 mls/hr IVPB Q8H [facility]; Protocol Last Admin: 07/29/18 11:21 Dose: 100 mls/hr Insulin Glargine (Lantus) 16 unit SC DAILY [facility] Last Admin: 07/29/18 11:06 Dose: 16 units Insulin Human Regular (Novolin R) 0 unit SC ACHS [facility]; Protocol Last Admin: 07/29/18 12:01 Dose: 4 units Metoprolol Succinate (Toprol Xl) 50 mg PO DAILY [facility] Last Admin: 07/29/18 11:05 Dose: 50 mg Mupirocin (Bactroban Ointment) 0 gm TOP BID [facility] Last Admin: 07/29/18 11:21 Dose: 1 applic Oxycodone/Acetaminophen (Percocet 5/325 Mg Tab) 1 tab PO Q4H PRN PRN Reason: Pain, moderate (4-7) Stop: 08/01/18 11:38 Last Admin: 07/29/18 11:58 Dose: 1 tab Pantoprazole Sodium (Protonix Ec Tab) 40 mg PO DAILY [facility] Last Admin: 07/29/18 11:06 Dose: 40 mg Tamsulosin HCl (Flomax) 0.4 mg PO BID [facility] Last Admin: 07/29/18 11:04 Dose: 0.4 mg - Labs Labs: 07/29/18 09:29 07/29/18 09:29 PT 15.6 SECONDS (9.7-12.2) H 07/21/18 20:28 INR 1.4 07/21/18 20:28 APTT 34 SECONDS (21-34) 07/21/18 20:28 - Constitutional Appears: No Acute Distress, Chronically Ill - Head Exam Additional comments: ulcerative lesion on the L nare and L malar region, erythema with slight granulation tissue. no drainage noted. cartilage visible. - Eye Exam Eye Exam: EOMI, Normal appearance, PERRL - ENT Exam ENT Exam: Mucous Membranes Moist Additional comments: ulcerative lesion on the L nare and L malar region, erythema with slight granulation tissue. no drainage noted. cartilage visible. - Respiratory Exam Respiratory Exam: Clear to Ausculation Bilateral, NORMAL BREATHING PATTERN. absent: Rales, Rhonchi, Wheezes, Respiratory Distress - Cardiovascular Exam Cardiovascular Exam: REGULAR RHYTHM, +S1, +S2. absent: Gallop, Rubs, Murmur - GI/Abdominal Exam GI & Abdominal Exam: Soft, Tenderness, Normal Bowel Sounds. absent: Distended, Firm Additional comments: tenderness to palpation of LLQ - Extremities Exam Extremities Exam: absent: Pedal Edema Additional comments: b/l knee amputations - Neurological Exam Neurological Exam: Alert, Awake, Oriented x3. absent: Motor Sensory Deficit - Skin Skin Exam: Normal Color Assessment and Plan - Assessment and Plan (Free Text) Assessment: 53 yo male with a history of uncontrolled T2DM (s/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 Patient's blood cultures are positive for Staph aureus, currently being treated for bacteremia. Plan: Staph Aureus Bacteremia: - Blood Cx positive for Staph aureus - ancef 2000mg IV q8h, as per ID - 6 week course antibiotic treatment, as per ID - Tmax 100.4 07/23 10PM - Tylenol 650 mg PO Q6H PRN - Procal 14.74 - UA 07/21: many magda, 340 WBC, trace LE, negative nitrate - UA 07/23: negative LE, negative nitrates - Urine Cx: no growth - Echo pending reading, r/o endocarditis - ID consulted - Mangia L Maxillofacial Ulcer - f/u MRI nasopharynx - ancef 2000mg IV q8h, as per ID - mupirocin 2g top BID - 6 week course antibiotic treatment, as per ID - CT 07/25: soft tissue swelling, no osteomyelitis or drainable fluid - wound care consulted - Pt following up with plastic surgeon at [facility] sep 04 - ID consulted - Mangia Lower back pain - pt reports 3 month history, with radiation and urinary retention - f/u MRI lumbar spine - percocet 325/5mg PO q4h PRN HTN - Monitor vitals- patient persistently hypertensive - ASA 81 mg PO daily - Enalapril 30 mg PO daily - Metoprolol 50 mg PO daily CAP - CXR: no acute findings - CT A/P: LLL consolidaation vs atelectasis - ancef 2000mg IV q8h AIDA - BUN/Cr 13/0.8, resolved - I/O: 610ml/1000ml - Replete electrolytes PRN - Hyponatremia (128): likely dilutional, continue to monitor Urinary Retention - CT A/P: bladder wall thickening (cystitis), b/l renal parenchymal high density may be underlying metabolic disorder - sagastume catheter - flomax 0.4mg PO BID - finasteride 5mg PO daily - Urology consulted (Titi Kam) f/u recs Unresponsiveness - resolved, pt AAOx3 - Code stroke - EEG: nonspecific abnormalities, no seizures noted - CT head: no acute findings - CTA head and neck: no significant stenoses or abnormalities - PRL wnl (12.9) - Gabapentin 100 mg PO TID - Neurology consulted: Manda - no need for anticonvulsant at this time - PT/OT/ST DM type 2 - A1c 8.9 - medium dose Novolin R ISS - lantus 16u SC daily - Hypoglycemia protocol - Accuchecks ACHS Ppx: VTE: Heparin 5000 units Q12H GI: Protonix 40 mg PO daily Dispo: pt without insurance and undocumented citizen, pending medicaid acceptance Pt seen with and case discussed with Dr. Curiel <Mila Curiel - Last Filed: 07/31/18 16:41> Objective - Vital Signs/Intake and Output Vital Signs (last 24 hours): Temp Pulse Resp BP Pulse Ox 98.7 F 76 20 170/75 H 98 07/31/18 15:54 07/31/18 15:54 07/31/18 15:54 07/31/18 15:54 07/31/18 15:54 Intake and Output: 07/31/18 07/31/18 06:59 18:59 Intake Total 1070 450 Output Total 1100 1000 Balance -30 -550 - Medications Medications: Current Medications Acetaminophen (Tylenol 325mg Tab) 650 mg PO Q6 PRN PRN Reason: Fever >100.4 or Pain Last Admin: 07/28/18 17:28 Dose: 650 mg Aspirin (Ecotrin) 81 mg PO DAILY [facility] Last Admin: 07/31/18 10:28 Dose: 81 mg Dextrose (Dextrose 50% Inj) 0 ml IV STAT PRN; Protocol PRN Reason: Hypoglycemia Protocol Last Admin: 07/22/18 11:53 Dose: 50 ml Dextrose (Glutose 15) 0 gm PO ONCE PRN; Protocol PRN Reason: Hypoglycemia Protocol Docusate Sodium (Colace) 100 mg PO BID [facility] Last Admin: 07/31/18 10:28 Dose: 100 mg Enalapril Maleate (Vasotec) 30 mg PO DAILY [facility] Last Admin: 07/31/18 10:27 Dose: 30 mg Finasteride (Proscar) 5 mg PO DAILY [facility] Last Admin: 07/31/18 10:27 Dose: 5 mg Gabapentin (Neurontin) 100 mg PO TID [facility] Last Admin: 07/31/18 13:54 Dose: 100 mg Glucagon (Glucagen Diagnostic Kit) 0 mg IM STAT PRN; Protocol PRN Reason: Hypoglycemia Protocol Cefazolin Sodium 2,000 mg/ (Sodium Chloride) 50 mls @ 100 mls/hr IVPB Q8H [facility]; Protocol Last Admin: 07/31/18 10:41 Dose: 100 mls/hr Insulin Glargine (Lantus) 20 unit SC DAILY [facility] Last Admin: 07/31/18 11:20 Dose: 20 units Insulin Human Regular (Novolin R) 0 unit SC ACHS [facility]; Protocol Last Admin: 07/31/18 12:01 Dose: 6 units Metoprolol Succinate (Toprol Xl) 50 mg PO DAILY [facility] Last Admin: 07/31/18 10:31 Dose: 50 mg Mupirocin (Bactroban Ointment) 0 gm TOP BID [facility] Last Admin: 07/31/18 10:33 Dose: 1 applic Oxycodone/Acetaminophen (Percocet 5/325 Mg Tab) 1 tab PO Q4H PRN PRN Reason: Pain, moderate (4-7) Stop: 08/01/18 11:38 Last Admin: 07/31/18 10:28 Dose: 1 tab Pantoprazole Sodium (Protonix Ec Tab) 40 mg PO DAILY [facility] Last Admin: 07/31/18 10:28 Dose: 40 mg Tamsulosin HCl (Flomax) 0.4 mg PO BID [facility] Last Admin: 07/31/18 10:28 Dose: 0.4 mg - Labs Labs: 07/31/18 07:33 07/31/18 07:33 PT 15.6 SECONDS (9.7-12.2) H 07/21/18 20:28 INR 1.4 07/21/18 20:28 APTT 34 SECONDS (21-34) 07/21/18 20:28 Attending/Attestation - Attestation I have personally seen and examined this patient.: Yes I have fully participated in the care of the patient.: Yes I have reviewed all pertinent clinical information, including history, physical exam and plan: Yes Notes (Text): Seen and examined bacteremia on ancef patient has basal cell ca nose.pending MRI to r/o infection continue flomax,proscar and faley cath in place for retention I agree with the residents notes.plan discussed win detail
[2018-07-30] MEDS: Oxycodone/Acetaminophen 5/325 mg Tab PO PRN ×3 (02:32→15:00)
[2018-07-30 07:39] LABS: ALB/GLOB RATIO 0.7 (1.0-2.1); ALBUMIN 2.5 g/dL (3.5-5.0); ALT/SGPT 18 U/L (21-72); AST/SGOT 38 U/L (17-59); BLOOD UREA NITROGEN 16 mg/dL (9-20); GFR NON-AFRICAN AMERICAN > 60
[2018-07-30] MEDS: (Novolin R) Insulin Human Regular 100 units/ml vial SC SCH ×3 (09:15→22:13)
[2018-07-30] MEDS: Metoprolol Succinate 50 mg XL Tab PO SCH (10:11)
[2018-07-30] MEDS: Pantoprazole 40 mg EC Tab PO SCH (10:11)
[2018-07-30] MEDS: (Lantus) Insulin Glargine, Recombinant SC SCH (10:51)
--- NOTE | 2018-07-30 13:22 | CARD ---
APPROVED REPORT Date of service: 07/24/2018 EXAM: Two-dimensional and M-mode echocardiogram with Doppler and color Doppler. Other Information Quality : GoodRhythm : INDICATION Infection:Rule out subacute bacterial endocarditis RISK FACTORS Diabetes 2D DIMENSIONS IVSd1.0 (0.7-1.1cm)LVDd4.6 (3.9-5.9cm) PWd0.8 (0.7-1.1cm)LA Nkoxxx62 (18-58mL) LVDs3.0 (2.5-4.0cm)FS (%) 35.1 % LVEF (%)66.0 (>50%)LVEF (Go's)65.22 % M-Mode DIMENSIONS Left Atrium (MM)4.33 (2.5-4.0cm)IVSd1.01 (0.7-1.1cm) Aortic Root3.64 (2.2-3.7cm)LVDd5.19 (4.0-5.6cm) Aortic Cusp Exc.2.56 (1.5-2.0cm)PWd0.94 (0.7-1.1cm) FS (%) 40 %LVDs3.14 (2.0-3.8cm) LVEF (%)70 (>50%) Mitral Valve MV E Roigueaq75.5cm/sMV A Prkecpxn545.7cm/sE/A ratio0.8 TDI Lateral E' Peak V12.48cm/sMedial E' Peak V6.93cm/sE/Lateral E'7.8 E/Medial E'14.1 Tricuspid Valve TR Peak Wrveyfth114ch/sTR Peak Gr.10qfTqGODD10qnCv LEFT VENTRICLE The left ventricle is normal size. There is normal left ventricular wall thickness. The Ejection Fraction is 60-65%. There is normal LV segmental wall motion. Transmitral Doppler flow pattern is Grade I-abnormal relaxation pattern. RIGHT VENTRICLE The right ventricle is normal size. The right ventricular systolic function is normal. ATRIA The left atrium is mildly dilated. The right atrium size is normal. The interatrial septum is intact with no evidence for an atrial septal defect. AORTIC VALVE aortic valve nt well seen,probably normal. There is trace aortic regurgitation. MITRAL VALVE The mitral valve is normal in structure. Mitral regurgitation is trace. TRICUSPID VALVE The tricuspid valve is normal in structure. There is mild tricuspid regurgitation. Right ventricular systolic pressure is estimated at 30 mmHg. There is no pulmonary hypertension. PULMONIC VALVE pv not well seen,probably normal GREAT VESSELS The aortic root is normal in size. The IVC is normal in size and collapses >50% with inspiration. PERICARDIAL EFFUSION There is no pericardial effusion. <Conclusion> The left ventricle is normal size. The Ejection Fraction is 60-65%. Transmitral Doppler flow pattern is Grade I-abnormal relaxation pattern. The left atrium is mildly dilated. There is mild tricuspid regurgitation. Right ventricular systolic pressure is estimated at 30 mmHg. There is no pulmonary hypertension. The aortic root is normal in size. There is no pericardial effusion.
--- NOTE | 2018-07-30 13:53 | CP.PCM.PN ---
<Ronit Rodriguez - Last Filed: 07/30/18 15:32> Subjective - Date & Time of Evaluation Date of Evaluation: 07/30/18 Time of Evaluation: 11:00 - Subjective Subjective: Ronit Rodriguez PGY1 Progress Note for Dr. Curiel Pt was examined at bedside this morning. He reported continuation of his back pain and left sided chest pain. Pt said he could not withstand the pain during the lumbar MRI that was ordered that he asked to stop before the facial study could be performed. This was verified by electronic sales and service technician. He also reports some intermittent shortness of breath. Pt denies nausea, vomiting, abdominal pain. Objective - Vital Signs/Intake and Output Vital Signs (last 24 hours): Temp Pulse Resp BP Pulse Ox 99.1 F 79 20 138/78 97 07/30/18 07:00 07/30/18 07:00 07/30/18 07:00 07/30/18 10:09 07/30/18 07:00 Intake and Output: 07/30/18 07/30/18 06:59 18:59 Intake Total 550 Output Total 1550 Balance -1000 - Medications Medications: Current Medications Acetaminophen (Tylenol 325mg Tab) 650 mg PO Q6 PRN PRN Reason: Fever >100.4 or Pain Last Admin: 07/28/18 17:28 Dose: 650 mg Aspirin (Ecotrin) 81 mg PO DAILY [facility] Last Admin: 07/30/18 10:11 Dose: 81 mg Dextrose (Dextrose 50% Inj) 0 ml IV STAT PRN; Protocol PRN Reason: Hypoglycemia Protocol Last Admin: 07/22/18 11:53 Dose: 50 ml Dextrose (Glutose 15) 0 gm PO ONCE PRN; Protocol PRN Reason: Hypoglycemia Protocol Docusate Sodium (Colace) 100 mg PO BID [facility] Last Admin: 07/30/18 10:10 Dose: 100 mg Enalapril Maleate (Vasotec) 30 mg PO DAILY [facility] Last Admin: 07/30/18 10:09 Dose: 30 mg Finasteride (Proscar) 5 mg PO DAILY [facility] Last Admin: 07/30/18 10:10 Dose: 5 mg Gabapentin (Neurontin) 100 mg PO TID [facility] Last Admin: 07/30/18 10:11 Dose: 100 mg Glucagon (Glucagen Diagnostic Kit) 0 mg IM STAT PRN; Protocol PRN Reason: Hypoglycemia Protocol Cefazolin Sodium 2,000 mg/ (Sodium Chloride) 50 mls @ 100 mls/hr IVPB Q8H [facility]; Protocol Last Admin: 07/30/18 10:51 Dose: 100 mls/hr Insulin Glargine (Lantus) 16 unit SC DAILY [facility] Last Admin: 07/30/18 10:51 Dose: 16 units Insulin Human Regular (Novolin R) 0 unit SC ACHS [facility]; Protocol Last Admin: 07/30/18 09:15 Dose: 3 units Metoprolol Succinate (Toprol Xl) 50 mg PO DAILY [facility] Last Admin: 07/30/18 10:11 Dose: 50 mg Mupirocin (Bactroban Ointment) 0 gm TOP BID [facility] Last Admin: 07/30/18 10:12 Dose: 1 applic Oxycodone/Acetaminophen (Percocet 5/325 Mg Tab) 1 tab PO Q4H PRN PRN Reason: Pain, moderate (4-7) Stop: 08/01/18 11:38 Last Admin: 07/30/18 09:15 Dose: 1 tab Pantoprazole Sodium (Protonix Ec Tab) 40 mg PO DAILY [facility] Last Admin: 07/30/18 10:11 Dose: 40 mg Tamsulosin HCl (Flomax) 0.4 mg PO BID [facility] Last Admin: 07/30/18 10:11 Dose: 0.4 mg - Labs Labs: 07/29/18 09:29 07/30/18 07:03 PT 15.6 SECONDS (9.7-12.2) H 07/21/18 20:28 INR 1.4 07/21/18 20:28 APTT 34 SECONDS (21-34) 07/21/18 20:28 - Additional Findings Additional findings: - Constitutional Appears: No Acute Distress, Chronically Ill - Head Exam Additional comments: ulcerative lesion on the L nare and L malar region, erythema with slight granulation tissue. no drainage noted. cartilage visible. - Eye Exam Eye Exam: EOMI, Normal appearance, PERRL - ENT Exam ENT Exam: Mucous Membranes Moist Additional comments: ulcerative lesion on the L nare and L malar region, erythema with slight granulation tissue. no drainage noted. cartilage visible. - Respiratory Exam Respiratory Exam: Clear to Ausculation Bilateral, NORMAL BREATHING PATTERN. absent: Rales, Rhonchi, Wheezes, Respiratory Distress - Cardiovascular Exam Cardiovascular Exam: REGULAR RHYTHM, +S1, +S2. Tenderness to palpation of left chest. absent: Gallop, Rubs, Murmur. - GI/Abdominal Exam GI & Abdominal Exam: Soft, Tenderness, Normal Bowel Sounds. absent: Distended, Firm Additional comments: tenderness to palpation of LLQ - Extremities Exam Extremities Exam: absent: Pedal Edema Additional comments: b/l knee amputations - Neurological Exam Neurological Exam: Alert, Awake, Oriented x3. absent: Motor Sensory Deficit - Skin Skin Exam: Normal Color Assessment and Plan - Assessment and Plan (Free Text) Assessment: 53 yo male with a history of uncontrolled T2DM (s/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 Patient's blood cultures are positive for Staph aureus, currently being treated for bacteremia. Plan: Staph Aureus Bacteremia: - Blood Cx positive for Staph aureus - Rpt BCx negative - ancef 2000mg IV q8h (07/25), as per ID - 6 week course antibiotic treatment, as per ID - Tmax 100.8 07/25 - Tylenol 650 mg PO Q6H PRN - Procal 14.74 - UA 07/21: many magda, 340 WBC, trace LE, negative nitrate - UA 07/23: negative LE, negative nitrates - Urine Cx: no growth - Echo: LV normal size and EF. LA mildly dilated. Mild TR. 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/ anterior epidural abscess - ancef 2000mg IV q8h (07/25) - percocet 325/5mg PO q4h PRN HTN - Monitor vitals- patient persistently hypertensive - ASA 81 mg PO daily - Enalapril 30 mg PO daily - Metoprolol 50 mg PO daily CAP - CXR: no acute findings - CT A/P: LLL consolidation vs atelectasis - ancef 2000mg IV q8h (07/25) AIDA - BUN/Cr 16/0.1, resolved - I/O: 1350/2850 - Replete electrolytes PRN Hyponatremia - Na 128 - likely dilutional - f/u urine and serum osmolality - f/u urine sodium - water restriction: 1000ml/day Urinary Retention - CT A/P: bladder wall thickening (cystitis), b/l renal parenchymal high density may be underlying metabolic disorder - sagastume catheter - flomax 0.4mg PO BID - finasteride 5mg PO daily - Urology consulted: Titi Kam - maintain sagastume Unresponsiveness - resolved, pt AAOx3 - Code stroke - EEG: nonspecific abnormalities, no seizures noted - CT head: no acute findings - CTA head and neck: no significant stenoses or abnormalities - PRL wnl (12.9) - Gabapentin 100 mg PO TID - Neurology consulted: Manda - no need for anticonvulsant at this time - PT/OT/ST DM type 2 - A1c 8.9 - medium dose Novolin R ISS - lantus 20u SC daily - Hypoglycemia protocol - Accuchecks ACHS Ppx: DVT: Heparin 5000 units Q12H GI: Protonix 40 mg PO daily Dispo: pt without insurance and undocumented citizen, pending medicaid acceptance Pt seen with and case discussed with Dr. Curiel <Mila Curiel - Last Filed: 08/01/18 17:10> Objective - Vital Signs/Intake and Output Vital Signs (last 24 hours): Temp Pulse Resp BP Pulse Ox 97.7 F 78 20 164/79 H 95 08/01/18 16:00 08/01/18 16:00 08/01/18 16:00 08/01/18 16:00 08/01/18 16:00 Intake and Output: 08/01/18 08/01/18 06:59 18:59 Intake Total 850 300 Output Total 1300 1300 Balance -450 -1000 - Medications Medications: Current Medications Acetaminophen (Tylenol 325mg Tab) 650 mg PO Q6 PRN PRN Reason: Fever >100.4 or Pain Last Admin: 07/28/18 17:28 Dose: 650 mg Aspirin (Ecotrin) 81 mg PO DAILY [facility] Last Admin: 08/01/18 09:39 Dose: 81 mg Dextrose (Dextrose 50% Inj) 0 ml IV STAT PRN; Protocol PRN Reason: Hypoglycemia Protocol Last Admin: 07/22/18 11:53 Dose: 50 ml Dextrose (Glutose 15) 0 gm PO ONCE PRN; Protocol PRN Reason: Hypoglycemia Protocol Docusate Sodium (Colace) 100 mg PO BID [facility] Last Admin: 08/01/18 09:40 Dose: 100 mg Enalapril Maleate (Vasotec) 30 mg PO DAILY [facility] Last Admin: 08/01/18 09:41 Dose: 30 mg Finasteride (Proscar) 5 mg PO DAILY [facility] Last Admin: 08/01/18 09:40 Dose: 5 mg Gabapentin (Neurontin) 100 mg PO TID [facility] Last Admin: 08/01/18 13:35 Dose: 100 mg Glucagon (Glucagen Diagnostic Kit) 0 mg IM STAT PRN; Protocol PRN Reason: Hypoglycemia Protocol Cefazolin Sodium 2,000 mg/ (Sodium Chloride) 50 mls @ 100 mls/hr IVPB Q8H [facility]; Protocol Last Admin: 08/01/18 11:50 Dose: 100 mls/hr Insulin Glargine (Lantus) 20 unit SC DAILY [facility] Last Admin: 08/01/18 09:39 Dose: 20 units Insulin Human Regular (Novolin R) 0 unit SC ACHS [facility]; Protocol Last Admin: 08/01/18 12:12 Dose: 6 units Metoprolol Succinate (Toprol Xl) 50 mg PO DAILY [facility] Last Admin: 08/01/18 09:41 Dose: 50 mg Mupirocin (Bactroban Ointment) 0 gm TOP BID [facility] Last Admin: 08/01/18 10:54 Dose: 1 applic Oxycodone/Acetaminophen (Percocet 5/325 Mg Tab) 1 tab PO Q8H PRN PRN Reason: Pain, moderate (4-7) Stop: 08/04/18 08:01 Last Admin: 08/01/18 11:50 Dose: 1 tab Pantoprazole Sodium (Protonix Ec Tab) 40 mg PO DAILY [facility] Last Admin: 08/01/18 09:42 Dose: 40 mg Tamsulosin HCl (Flomax) 0.4 mg PO BID [facility] Last Admin: 08/01/18 09:40 Dose: 0.4 mg - Labs Labs: 08/01/18 08:05 08/01/18 08:05 PT 15.6 SECONDS (9.7-12.2) H 07/21/18 20:28 INR 1.4 07/21/18 20:28 APTT 34 SECONDS (21-34) 07/21/18 20:28 Attending/Attestation - Attestation I have personally seen and examined this patient.: Yes I have fully participated in the care of the patient.: Yes I have reviewed all pertinent clinical information, including history, physical exam and plan: Yes Notes (Text): MRI report noted continue antibiotics IR for drain/biopsy we will follow with Dr Garcia
--- NOTE | 2018-07-30 14:58 | MRI ---
Date of service: 07/30/2018 PROCEDURE: MR LUMBAR SPINE WITHOUT CONTRAST HISTORY: severe lower back pain radiating to legs COMPARISON: None available. TECHNIQUE: Multiecho multiplanar sequences were performed through the lumbar spine without the use of intravenous contrast. FINDINGS: Normal lumbar lordosis. Vertebral body heights are preserved. Edematous changes are appreciated at the L4 greater than L5 vertebral bodies with fluid in the intervening L4-5 intervertebral disc. There is no disruption of the endplates surrounding this disc and there is questionable edema in the prevertebral paraspinal soft tissue around these bodies. This pattern suspicious for early discitis osteomyelitis infection and further clinical correlation is advised. Contrast MRI may be useful for follow-up. Conus medullaris unremarkable at the level of L1. T12-L1: No disc herniation, spinal canal stenosis or neural foraminal narrowing. L1-2: No disc herniation, spinal canal stenosis or neural foraminal narrowing. L2-3: No disc herniation, spinal canal stenosis or neural foraminal narrowing. L3-4: A circumferential disc bulge is appreciated combining with moderate facet joint degenerative changes resulting in lateral recess stenosis symmetrically bilaterally with mild bilateral neural foraminal stenosis present. No disc herniation. L4-5: No disc herniation. A circumferential disc bulge is appreciated, aside from the discitis osteomyelitis pattern questioned above, and combines with facet joint degenerative arthropathy resulting in mild central stenosis. [id number] right and moderate left degenerative neural foraminal stenoses are identified. Epidural fluid is questioned posterior to the L4 vertebral body as well as at the upper mid anterior epidural space at L5 suspicious for possible abscess. L5-S1: No disc herniation, spinal canal stenosis or neural foraminal narrowing. Prominent facet joint degenerative change are identified encroaching the bilateral lateral recesses slightly greater the left and right sides. OTHER FINDINGS: None. IMPRESSION: 1. Pattern suspicious for discitis osteomyelitis involving L4-L5 and L4-5 intervertebral disc with anterior epidural abscess is questioned posterior to L4 and L5 vertebral bodies as discussed above. Contrast MRI can be utilized for added characterization. Questionable right iliopsoas fluid collection measure 1.5 x 1.9 cm. 2. Mild degenerative central canal stenosis L4-5.
[2018-07-31] MEDS: Oxycodone/Acetaminophen 5/325 mg Tab PO PRN ×3 (01:50→22:20)
--- NOTE | 2018-07-31 07:49 | CP.PCM.PN ---
<Ronit Rodriguez - Last Filed: 07/31/18 13:50> Subjective - Date & Time of Evaluation Date of Evaluation: 07/31/18 Time of Evaluation: 07:47 - Subjective Subjective: Ronit Rodriguez PGY1 Progress Note for Dr. Curiel Pt was examined at bedside this morning. He was sleepy, but arousable. Pt continued to complain of lower back pain. He says the pain is also in his hips b/l, and radiates to his b/l legs. He continues to complain of his left sided chest pain and shortness of breath. He also complains of burning with urination and discomfort from the sagastume. Objective - Vital Signs/Intake and Output Vital Signs (last 24 hours): Temp Pulse Resp BP Pulse Ox 97.4 F L 84 20 161/74 H 95 07/31/18 00:00 07/31/18 00:00 07/31/18 00:00 07/31/18 00:00 07/31/18 00:00 Intake and Output: 07/31/18 07/31/18 06:59 18:59 Intake Total 1070 Output Total 1100 Balance -30 - Medications Medications: Current Medications Acetaminophen (Tylenol 325mg Tab) 650 mg PO Q6 PRN PRN Reason: Fever >100.4 or Pain Last Admin: 07/28/18 17:28 Dose: 650 mg Aspirin (Ecotrin) 81 mg PO DAILY [facility] Last Admin: 07/30/18 10:11 Dose: 81 mg Dextrose (Dextrose 50% Inj) 0 ml IV STAT PRN; Protocol PRN Reason: Hypoglycemia Protocol Last Admin: 07/22/18 11:53 Dose: 50 ml Dextrose (Glutose 15) 0 gm PO ONCE PRN; Protocol PRN Reason: Hypoglycemia Protocol Docusate Sodium (Colace) 100 mg PO BID [facility] Last Admin: 07/30/18 18:47 Dose: 100 mg Enalapril Maleate (Vasotec) 30 mg PO DAILY [facility] Last Admin: 07/30/18 10:09 Dose: 30 mg Finasteride (Proscar) 5 mg PO DAILY [facility] Last Admin: 07/30/18 10:10 Dose: 5 mg Gabapentin (Neurontin) 100 mg PO TID [facility] Last Admin: 07/30/18 18:47 Dose: 100 mg Glucagon (Glucagen Diagnostic Kit) 0 mg IM STAT PRN; Protocol PRN Reason: Hypoglycemia Protocol Cefazolin Sodium 2,000 mg/ (Sodium Chloride) 50 mls @ 100 mls/hr IVPB Q8H [facility]; Protocol Last Admin: 07/31/18 02:41 Dose: 100 mls/hr Insulin Glargine (Lantus) 20 unit SC DAILY [facility] Insulin Human Regular (Novolin R) 0 unit SC ACHS [facility]; Protocol Last Admin: 07/30/18 22:13 Dose: Not Given Metoprolol Succinate (Toprol Xl) 50 mg PO DAILY [facility] Last Admin: 07/30/18 10:11 Dose: 50 mg Mupirocin (Bactroban Ointment) 0 gm TOP BID [facility] Last Admin: 07/30/18 19:02 Dose: 1 applic Oxycodone/Acetaminophen (Percocet 5/325 Mg Tab) 1 tab PO Q4H PRN PRN Reason: Pain, moderate (4-7) Stop: 08/01/18 11:38 Last Admin: 07/31/18 01:50 Dose: 1 tab Pantoprazole Sodium (Protonix Ec Tab) 40 mg PO DAILY [facility] Last Admin: 07/30/18 10:11 Dose: 40 mg Tamsulosin HCl (Flomax) 0.4 mg PO BID [facility] Last Admin: 07/30/18 18:47 Dose: 0.4 mg - Labs Labs: 07/29/18 09:29 07/30/18 07:03 PT 15.6 SECONDS (9.7-12.2) H 07/21/18 20:28 INR 1.4 07/21/18 20:28 APTT 34 SECONDS (21-34) 07/21/18 20:28 - Additional Findings Additional findings: - Constitutional Appears: No Acute Distress, Chronically Ill - Head Exam Additional comments: ulcerative lesion on the L nare and L malar region, erythema with slight granulation tissue. no drainage noted. cartilage visible. - Eye Exam Eye Exam: EOMI, Normal appearance, PERRL - ENT Exam ENT Exam: Mucous Membranes Moist Additional comments: ulcerative lesion on the L nare and L malar region, erythema with slight granulation tissue. no drainage noted. cartilage visible. - Respiratory Exam Respiratory Exam: Clear to Ausculation Bilateral, NORMAL BREATHING PATTERN. absent: Rales, Rhonchi, Wheezes, Respiratory Distress - Cardiovascular Exam Cardiovascular Exam: REGULAR RHYTHM, +S1, +S2. Tenderness to palpation of left chest. absent: Gallop, Rubs, Murmur. - GI/Abdominal Exam GI & Abdominal Exam: Soft, Tenderness, Normal Bowel Sounds. absent: Distended, Firm Additional comments: tenderness to palpation of LLQ - Extremities Exam Extremities Exam: absent: Pedal Edema Additional comments: b/l knee amputations - Neurological Exam Neurological Exam: Alert, Awake, Oriented x3. absent: Motor Sensory Deficit - Skin Skin Exam: Normal Color Assessment and Plan - Assessment and Plan (Free Text) Assessment: 53 yo male with a history of uncontrolled T2DM (s/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 Patient's blood cultures are positive for Staph aureus, currently being treated for bacteremia. Plan: Staph Aureus Bacteremia: - Blood Cx positive for Staph aureus - Rpt BCx negative - likely source spinal abscess - ancef 2000mg IV q8h (07/25), as per ID - 6 week course antibiotic treatment, as per ID - Tmax 100.8 07/25 - Tylenol 650 mg PO Q6H PRN - Procal 14.74 - UA 07/21: many magda, 340 WBC, trace LE, negative nitrate - UA 07/23: negative LE, negative nitrates - Urine Cx: no growth - Echo: LV normal size and EF. LA mildly dilated. Mild TR. - f/u KASH - Cardio consulted, Dr. 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 Fouzia - psoas collection to small to drain, consult neuro surgery for spinal abscess HTN - Monitor vitals- patient persistently hypertensive - ASA 81 mg PO daily - Enalapril 30 mg PO daily - Metoprolol 50 mg PO daily CAP - CXR: no acute findings - CT A/P: LLL consolidation vs atelectasis - ancef 2000mg IV q8h (07/25) AIDA - BUN/Cr 17/0.8, resolved - I/O: 1070/1800 - Replete electrolytes PRN Hyponatremia - Na 129 - likely dilutional - urine osmolality 454, wnl - serum osmolality 297, wnl - f/u urine 24hr sodium - water restriction: 1000ml/day Urinary Retention - CT A/P: bladder wall thickening (cystitis), b/l renal parenchymal high density may be underlying metabolic disorder - sagastume catheter - flomax 0.4mg PO BID - finasteride 5mg PO daily - Urology consulted: Titi Kam - maintain sagastume Unresponsiveness - resolved, pt AAOx3 - Code stroke - EEG: nonspecific abnormalities, no seizures noted - CT head: no acute findings - CTA head and neck: no significant stenoses or abnormalities - PRL wnl (12.9) - Gabapentin 100 mg PO TID - Neurology consulted: Manda - no need for anticonvulsant at this time - PT/OT/ST DM type 2 - A1c 8.9 - medium dose Novolin R ISS - lantus 20u SC daily - Hypoglycemia protocol - Accuchecks ACHS Ppx: DVT: Heparin 5000 units Q12H GI: Protonix 40 mg PO daily Dispo: pt without insurance and undocumented citizen, pending medicaid acceptance Pt seen with and case discussed with Dr. Curiel <Mila Curiel - Last Filed: 08/01/18 17:08> Objective - Vital Signs/Intake and Output Vital Signs (last 24 hours): Temp Pulse Resp BP Pulse Ox 97.7 F 78 20 164/79 H 95 08/01/18 16:00 08/01/18 16:00 08/01/18 16:00 08/01/18 16:00 08/01/18 16:00 Intake and Output: 08/01/18 08/01/18 06:59 18:59 Intake Total 850 300 Output Total 1300 1300 Balance -450 -1000 - Medications Medications: Current Medications Acetaminophen (Tylenol 325mg Tab) 650 mg PO Q6 PRN PRN Reason: Fever >100.4 or Pain Last Admin: 07/28/18 17:28 Dose: 650 mg Aspirin (Ecotrin) 81 mg PO DAILY [facility] Last Admin: 08/01/18 09:39 Dose: 81 mg Dextrose (Dextrose 50% Inj) 0 ml IV STAT PRN; Protocol PRN Reason: Hypoglycemia Protocol Last Admin: 07/22/18 11:53 Dose: 50 ml Dextrose (Glutose 15) 0 gm PO ONCE PRN; Protocol PRN Reason: Hypoglycemia Protocol Docusate Sodium (Colace) 100 mg PO BID [facility] Last Admin: 08/01/18 09:40 Dose: 100 mg Enalapril Maleate (Vasotec) 30 mg PO DAILY [facility] Last Admin: 08/01/18 09:41 Dose: 30 mg Finasteride (Proscar) 5 mg PO DAILY [facility] Last Admin: 08/01/18 09:40 Dose: 5 mg Gabapentin (Neurontin) 100 mg PO TID [facility] Last Admin: 08/01/18 13:35 Dose: 100 mg Glucagon (Glucagen Diagnostic Kit) 0 mg IM STAT PRN; Protocol PRN Reason: Hypoglycemia Protocol Cefazolin Sodium 2,000 mg/ (Sodium Chloride) 50 mls @ 100 mls/hr IVPB Q8H [facility]; Protocol Last Admin: 08/01/18 11:50 Dose: 100 mls/hr Insulin Glargine (Lantus) 20 unit SC DAILY [facility] Last Admin: 08/01/18 09:39 Dose: 20 units Insulin Human Regular (Novolin R) 0 unit SC ACHS [facility]; Protocol Last Admin: 08/01/18 12:12 Dose: 6 units Metoprolol Succinate (Toprol Xl) 50 mg PO DAILY [facility] Last Admin: 08/01/18 09:41 Dose: 50 mg Mupirocin (Bactroban Ointment) 0 gm TOP BID [facility] Last Admin: 08/01/18 10:54 Dose: 1 applic Oxycodone/Acetaminophen (Percocet 5/325 Mg Tab) 1 tab PO Q8H PRN PRN Reason: Pain, moderate (4-7) Stop: 08/04/18 08:01 Last Admin: 08/01/18 11:50 Dose: 1 tab Pantoprazole Sodium (Protonix Ec Tab) 40 mg PO DAILY [facility] Last Admin: 08/01/18 09:42 Dose: 40 mg Tamsulosin HCl (Flomax) 0.4 mg PO BID [facility] Last Admin: 08/01/18 09:40 Dose: 0.4 mg - Labs Labs: 08/01/18 08:05 08/01/18 08:05 PT 15.6 SECONDS (9.7-12.2) H 07/21/18 20:28 INR 1.4 07/21/18 20:28 APTT 34 SECONDS (21-34) 07/21/18 20:28 Attending/Attestation - Attestation I have personally seen and examined this patient.: Yes I have fully participated in the care of the patient.: Yes I have reviewed all pertinent clinical information, including history, physical exam and plan: Yes Notes (Text): seen and examined plan discussed with the resident cardiology Dr Ge consult appreciated we will continue antibiotics follow neurosurgery and IR recommendation
[2018-07-31 07:52] LABS: BASO # 0.1 K/uL (0.0-0.2); BASO % 0.8 % (0.0-2.0); EOS # 0.2 K/uL (0.0-0.7); EOS % 1.7 % (0.0-4.0); HEMOGLOBIN 7.9 g/dL (12.0-18.0); LYMPH # 1.6 K/uL (1.0-4.3); LYMPH % 13.4 % (20.0-40.0); MEAN CELL VOLUME 87.8 fL (80.0-94.0); MEAN PLATELET VOLUME 8.5 fL (7.2-11.7); MONO # 0.7 K/uL (0.0-0.8); MONO % 5.8 % (0.0-10.0); NEUT # 9.5 K/uL (1.8-7.0); NEUT % 78.3 % (50.0-75.0); RBC 2.74 Mil/uL (4.40-5.90); RED CELL DISTRIBUTION WIDTH 13.2 % (11.5-14.5); WHITE BLOOD COUNT 12.2 K/uL (4.8-10.8)
[2018-07-31] MEDS: (Novolin R) Insulin Human Regular 100 units/ml vial SC SCH ×4 (08:04→21:34)
[2018-07-31 08:10] LABS: ALB/GLOB RATIO 0.7 (1.0-2.1); ALBUMIN 2.7 g/dL (3.5-5.0); ALT/SGPT 13 U/L (21-72); AST/SGOT 31 U/L (17-59); BLOOD UREA NITROGEN 17 mg/dL (9-20); CALCIUM 8.1 mg/dl (8.6-10.4); GFR NON-AFRICAN AMERICAN > 60
[2018-07-31] MEDS: Pantoprazole 40 mg EC Tab PO SCH (10:28)
[2018-07-31] MEDS: Metoprolol Succinate 50 mg XL Tab PO SCH (10:31)
[2018-07-31] MEDS: (Lantus) Insulin Glargine, Recombinant SC SCH (11:20)
--- NOTE | 2018-07-31 14:11 | PCM.IRP ---
Objective - Vital Signs/Intake and Output Vital Signs (last 24 hours): Vital Signs - 24 hr 07/30/18 07/30/18 07/31/18 16:40 20:00 00:00 Temperature 98.9 F 98.6 F 97.4 F L Pulse Rate 80 79 84 Respiratory 20 18 20 Rate Blood Pressure 170/77 H 156/65 H 161/74 H O2 Sat by Pulse 97 96 95 Oximetry 07/31/18 07/31/18 08:00 10:27 Temperature 97.8 F Pulse Rate 70 Respiratory 20 Rate Blood Pressure 148/78 148/78 O2 Sat by Pulse 96 Oximetry Intake and Output (last 12 hours): Intake & Output 07/30/18 07/31/18 07/31/18 18:59 06:59 18:59 Intake Total 1070 Output Total 700 1100 Balance -700 -30 Intake: Intake, IV Amount 150 right upper arm 150 Oral 920 Output: Urine 700 1100 Urethral (Jin) 700 1100 Other: # Bowel Movements 1 0 - Medications Medications: Current Medications Acetaminophen (Tylenol 325mg Tab) 650 mg PO Q6 PRN PRN Reason: Fever >100.4 or Pain Last Admin: 07/28/18 17:28 Dose: 650 mg Aspirin (Ecotrin) 81 mg PO DAILY [facility] Last Admin: 07/31/18 10:28 Dose: 81 mg Dextrose (Dextrose 50% Inj) 0 ml IV STAT PRN; Protocol PRN Reason: Hypoglycemia Protocol Last Admin: 07/22/18 11:53 Dose: 50 ml Dextrose (Glutose 15) 0 gm PO ONCE PRN; Protocol PRN Reason: Hypoglycemia Protocol Docusate Sodium (Colace) 100 mg PO BID [facility] Last Admin: 07/31/18 10:28 Dose: 100 mg Enalapril Maleate (Vasotec) 30 mg PO DAILY [facility] Last Admin: 07/31/18 10:27 Dose: 30 mg Finasteride (Proscar) 5 mg PO DAILY [facility] Last Admin: 07/31/18 10:27 Dose: 5 mg Gabapentin (Neurontin) 100 mg PO TID [facility] Last Admin: 07/31/18 13:54 Dose: 100 mg Glucagon (Glucagen Diagnostic Kit) 0 mg IM STAT PRN; Protocol PRN Reason: Hypoglycemia Protocol Cefazolin Sodium 2,000 mg/ (Sodium Chloride) 50 mls @ 100 mls/hr IVPB Q8H [facility]; Protocol Last Admin: 07/31/18 10:41 Dose: 100 mls/hr Insulin Glargine (Lantus) 20 unit SC DAILY [facility] Last Admin: 07/31/18 11:20 Dose: 20 units Insulin Human Regular (Novolin R) 0 unit SC ACHS [facility]; Protocol Last Admin: 07/31/18 12:01 Dose: 6 units Metoprolol Succinate (Toprol Xl) 50 mg PO DAILY [facility] Last Admin: 07/31/18 10:31 Dose: 50 mg Mupirocin (Bactroban Ointment) 0 gm TOP BID [facility] Last Admin: 07/31/18 10:33 Dose: 1 applic Oxycodone/Acetaminophen (Percocet 5/325 Mg Tab) 1 tab PO Q4H PRN PRN Reason: Pain, moderate (4-7) Stop: 08/01/18 11:38 Last Admin: 07/31/18 10:28 Dose: 1 tab Pantoprazole Sodium (Protonix Ec Tab) 40 mg PO DAILY [facility] Last Admin: 07/31/18 10:28 Dose: 40 mg Tamsulosin HCl (Flomax) 0.4 mg PO BID [facility] Last Admin: 07/31/18 10:28 Dose: 0.4 mg - Labs Labs (last 24 hours): Laboratory Results - last 24 hr 07/30/18 07/30/18 07/30/18 16:31 17:00 18:03 WBC RBC Hgb Hct MCV MCH MCHC RDW Plt Count MPV Neut % (Auto) Lymph % (Auto) [place] % (Auto) Eos % (Auto) Baso % (Auto) Neut # (Auto) Lymph # (Auto) [place] # (Auto) Eos # (Auto) Baso # (Auto) Sodium Potassium Chloride Carbon Dioxide Anion Gap BUN Creatinine Est GFR ( Amer) Est GFR (Non-Af Amer) POC Glucose (mg/dL) 327 H Random Glucose Serum Osmolality 297 Calcium Total Bilirubin AST ALT Alkaline Phosphatase Total Protein Albumin Globulin Albumin/Globulin Ratio Urine Osmolality 454 07/30/18 07/31/18 07/31/18 21:45 07:04 07:33 WBC RBC Hgb Hct MCV MCH MCHC RDW Plt Count MPV Neut % (Auto) Lymph % (Auto) [place] % (Auto) Eos % (Auto) Baso % (Auto) Neut # (Auto) Lymph # (Auto) [place] # (Auto) Eos # (Auto) Baso # (Auto) Sodium 129 L Potassium 4.7 Chloride 97 L Carbon Dioxide 25 Anion Gap 11 BUN 17 Creatinine 0.8 Est GFR ( Amer) > 60 Est GFR (Non-Af Amer) > 60 POC Glucose (mg/dL) 259 H 244 H Random Glucose 258 H Serum Osmolality Calcium 8.1 L Total Bilirubin 0.2 AST 31 ALT 13 L D Alkaline Phosphatase 116 Total Protein 6.3 Albumin 2.7 L Globulin 3.7 Albumin/Globulin Ratio 0.7 L Urine Osmolality 07/31/18 07/31/18 07:33 11:24 WBC 12.2 H RBC 2.74 L Hgb 7.9 L Hct 24.1 L MCV 87.8 MCH 29.0 MCHC 33.0 RDW 13.2 Plt Count 524 H MPV 8.5 Neut % (Auto) 78.3 H Lymph % (Auto) 13.4 L [place] % (Auto) 5.8 Eos % (Auto) 1.7 Baso % (Auto) 0.8 Neut # (Auto) 9.5 H Lymph # (Auto) 1.6 [place] # (Auto) 0.7 Eos # (Auto) 0.2 Baso # (Auto) 0.1 Sodium Potassium Chloride Carbon Dioxide Anion Gap BUN Creatinine Est GFR ( Amer) Est GFR (Non-Af Amer) POC Glucose (mg/dL) 327 H Random Glucose Serum Osmolality Calcium Total Bilirubin AST ALT Alkaline Phosphatase Total Protein Albumin Globulin Albumin/Globulin Ratio Urine Osmolality Assessment/Plan - Assessment and Plan (Free Text) Assessment: I have reviewed the patients image's. The fluid in the right psoas is not ammenable to drainage. No IR intervention at this time.D/W surgical houstaff.
--- NOTE | 2018-07-31 14:43 | CP.PCM.CON ---
<Axel Hollis - Last Filed: 07/31/18 15:33> History of Present Illness - History of Present Illness History of Present Illness: Axel Hollis, PGY-[address] Ge, Cardiology Mr. Bowling is a 53 M with poorly controlled DM2, lumbar spinal abscess and L facial cellulitis resulting in damage to left nostril and cartilage erosion. Patient is somehwat somnolent, as recently received Percocet for his back pain. Unable to obtain full ROS from patient at this time due to state. Patient had TTE performed on 07/24/18 which showed EF 60-65% and LA mildly dilated along with mild TR. Patient reports some bilateral upper chest pain. Patient denies any cardiac history in the family. Initial blood cultures 07/21/18 showed staph aureus bacteremia on antibiotics, although repeat blood cultures after 48 hours does not show any growth currently. Past Patient History - Infectious Disease Hx of Infectious Diseases: None - Past Medical History & Family History Past Medical History?: Yes - Past Social History Smoking Status: Former Smoker - CARDIAC Hx Hypertension: Yes - PULMONARY Hx Respiratory Disorders: No - NEUROLOGICAL Hx Neurological Disorder: No - HEENT Hx HEENT Problems: No - RENAL Hx Chronic Kidney Disease: No - ENDOCRINE/METABOLIC Hx Diabetes Mellitus Type 2: Yes - HEMATOLOGICAL/ONCOLOGICAL Hx Anemia: Yes Hx Human Immunodeficiency Virus (HIV): No - INTEGUMENTARY Hx Dermatological Problems: Yes Hx Cellulitis: Yes Other/Comment: Ulcer right foot - MUSCULOSKELETAL/RHEUMATOLOGICAL Hx Musculoskeletal Disorders: Yes (SEE COMMENT) Hx Falls: No Hx Osteomyelitis: Yes Other/Comment: BILATERAL BK-AMPUTATIONS - GASTROINTESTINAL Hx Gastrointestinal Disorders: No - GENITOURINARY/GYNECOLOGICAL Hx Genitourinary Disorders: No - PSYCHIATRIC Hx Depression: Yes Hx Substance Use: No - SURGICAL HISTORY Hx Surgeries: Yes Hx Amputation: Yes (Bilateral BKA) - ANESTHESIA Hx Anesthesia: Yes Hx Anesthesia Reactions: No Hx Malignant Hyperthermia: No Meds Allergies/Adverse Reactions: Allergies Allergy/AdvReac Type Severity Reaction Status Date / Time No Known Allergies Allergy Verified 07/21/18 20:06 - Medications Medications: Current Medications Acetaminophen (Tylenol 325mg Tab) 650 mg PO Q6 PRN PRN Reason: Fever >100.4 or Pain Last Admin: 07/28/18 17:28 Dose: 650 mg Aspirin (Ecotrin) 81 mg PO DAILY [facility] Last Admin: 07/31/18 10:28 Dose: 81 mg Dextrose (Dextrose 50% Inj) 0 ml IV STAT PRN; Protocol PRN Reason: Hypoglycemia Protocol Last Admin: 07/22/18 11:53 Dose: 50 ml Dextrose (Glutose 15) 0 gm PO ONCE PRN; Protocol PRN Reason: Hypoglycemia Protocol Docusate Sodium (Colace) 100 mg PO BID [facility] Last Admin: 07/31/18 10:28 Dose: 100 mg Enalapril Maleate (Vasotec) 30 mg PO DAILY [facility] Last Admin: 07/31/18 10:27 Dose: 30 mg Finasteride (Proscar) 5 mg PO DAILY [facility] Last Admin: 07/31/18 10:27 Dose: 5 mg Gabapentin (Neurontin) 100 mg PO TID [facility] Last Admin: 07/31/18 13:54 Dose: 100 mg Glucagon (Glucagen Diagnostic Kit) 0 mg IM STAT PRN; Protocol PRN Reason: Hypoglycemia Protocol Cefazolin Sodium 2,000 mg/ (Sodium Chloride) 50 mls @ 100 mls/hr IVPB Q8H [facility]; Protocol Last Admin: 07/31/18 10:41 Dose: 100 mls/hr Insulin Glargine (Lantus) 20 unit SC DAILY [facility] Last Admin: 07/31/18 11:20 Dose: 20 units Insulin Human Regular (Novolin R) 0 unit SC ACHS [facility]; Protocol Last Admin: 07/31/18 12:01 Dose: 6 units Metoprolol Succinate (Toprol Xl) 50 mg PO DAILY [facility] Last Admin: 07/31/18 10:31 Dose: 50 mg Mupirocin (Bactroban Ointment) 0 gm TOP BID [facility] Last Admin: 07/31/18 10:33 Dose: 1 applic Oxycodone/Acetaminophen (Percocet 5/325 Mg Tab) 1 tab PO Q4H PRN PRN Reason: Pain, moderate (4-7) Stop: 08/01/18 11:38 Last Admin: 07/31/18 10:28 Dose: 1 tab Pantoprazole Sodium (Protonix Ec Tab) 40 mg PO DAILY [facility] Last Admin: 07/31/18 10:28 Dose: 40 mg Tamsulosin HCl (Flomax) 0.4 mg PO BID [facility] Last Admin: 07/31/18 10:28 Dose: 0.4 mg Physical Exam - Additional Findings Additional findings: - Constitutional Appears: Somewhat somnolent, No Acute Distress - Eye Exam Eye Exam: EOMI, Normal appearance, PERRL - ENT Exam ENT Exam: Mucous Membranes Moist Additional comments: ulcerative lesion on the L nares and L malar region, erythema with slight granulation tissue. cartilage visible. No obvious drainage. - Respiratory Exam Respiratory Exam: Clear to Ausculation Bilateral, NORMAL BREATHING PATTERN. absent: Rales, Rhonchi, Wheezes, Respiratory Distress - Cardiovascular Exam Cardiovascular Exam: REGULAR RHYTHM, +S1, +S2. Tenderness to palpation of right and left chest. absent: Gallop, Rubs, Murmur. - GI/Abdominal Exam GI & Abdominal Exam: Soft, Tenderness, Normal Bowel Sounds. absent: Distended, Firm Additional comments: tenderness to palpation of LLQ - Extremities Exam Extremities Exam: absent: Pedal Edema Additional comments: bilateral knee amputations Results - Vital Signs Recent Vital Signs: Last Vital Signs Temp 97.8 F 07/31/18 08:00 Pulse 70 07/31/18 08:00 Resp 20 07/31/18 08:00 BP 148/78 07/31/18 10:27 Pulse Ox 96 07/31/18 08:00 - Labs Result Diagrams: 07/31/18 07:33 07/31/18 07:33 Labs: Laboratory Results - last 24 hr 07/30/18 07/30/18 07/30/18 16:31 17:00 18:03 WBC RBC Hgb Hct MCV MCH MCHC RDW Plt Count MPV Neut % (Auto) Lymph % (Auto) [place] % (Auto) Eos % (Auto) Baso % (Auto) Neut # (Auto) Lymph # (Auto) [place] # (Auto) Eos # (Auto) Baso # (Auto) Sodium Potassium Chloride Carbon Dioxide Anion Gap BUN Creatinine Est GFR ( Amer) Est GFR (Non-Af Amer) POC Glucose (mg/dL) 327 H Random Glucose Serum Osmolality 297 Calcium Total Bilirubin AST ALT Alkaline Phosphatase Total Protein Albumin Globulin Albumin/Globulin Ratio Urine Osmolality 454 07/30/18 07/31/18 07/31/18 21:45 07:04 07:33 WBC RBC Hgb Hct MCV MCH MCHC RDW Plt Count MPV Neut % (Auto) Lymph % (Auto) [place] % (Auto) Eos % (Auto) Baso % (Auto) Neut # (Auto) Lymph # (Auto) [place] # (Auto) Eos # (Auto) Baso # (Auto) Sodium 129 L Potassium 4.7 Chloride 97 L Carbon Dioxide 25 Anion Gap 11 BUN 17 Creatinine 0.8 Est GFR ( Amer) > 60 Est GFR (Non-Af Amer) > 60 POC Glucose (mg/dL) 259 H 244 H Random Glucose 258 H Serum Osmolality Calcium 8.1 L Total Bilirubin 0.2 AST 31 ALT 13 L D Alkaline Phosphatase 116 Total Protein 6.3 Albumin 2.7 L Globulin 3.7 Albumin/Globulin Ratio 0.7 L Urine Osmolality 07/31/18 07/31/18 07:33 11:24 WBC 12.2 H RBC 2.74 L Hgb 7.9 L Hct 24.1 L MCV 87.8 MCH 29.0 MCHC 33.0 RDW 13.2 Plt Count 524 H MPV 8.5 Neut % (Auto) 78.3 H Lymph % (Auto) 13.4 L [place] % (Auto) 5.8 Eos % (Auto) 1.7 Baso % (Auto) 0.8 Neut # (Auto) 9.5 H Lymph # (Auto) 1.6 [place] # (Auto) 0.7 Eos # (Auto) 0.2 Baso # (Auto) 0.1 Sodium Potassium Chloride Carbon Dioxide Anion Gap BUN Creatinine Est GFR ( Amer) Est GFR (Non-Af Amer) POC Glucose (mg/dL) 327 H Random Glucose Serum Osmolality Calcium Total Bilirubin AST ALT Alkaline Phosphatase Total Protein Albumin Globulin Albumin/Globulin Ratio Urine Osmolality Assessment & Plan - Assessment and Plan (Free Text) Assessment: Mr. Bowling is a [place] speaking 53 M with poorly controlled DM2, Staph aureus bacteremia, lumbar spinal abscess and L facial cellulitis resulting in damage to left nostril and cartilage erosion. Plan: Staph Aureus bacteremia - Multiple modes of entry, including lumbar abscess and maxillofacial ulcer in setting of poor diabetes control and ? untreated basal cell carcinoma near L nares - At this time, as prelim repeat blood cultures are negative after 48 hours, guidelines suggest to defer KASH to a time at which patient is persistently bacteremic while on antibiotics - Continue to monitor cultures and clinical presentation Chest Pain, likely chostochondritis vs ACS - Trops neg x2 - Reproducible Chest Pain upon palpation - ASA 81 HTN - 148/78 most recently, better controlled - Enalapril, Metoprolol - continue to monitor Patient seen, case discussed with Dr. Ge. Further recommendations per Dr. Ge. Axel Hollis, PGY-1 <Nilo Ge - Last Filed: 08/01/18 10:41> Meds - Medications Medications: Current Medications Acetaminophen (Tylenol 325mg Tab) 650 mg PO Q6 PRN PRN Reason: Fever >100.4 or Pain Last Admin: 07/28/18 17:28 Dose: 650 mg Aspirin (Ecotrin) 81 mg PO DAILY [facility] Last Admin: 08/01/18 09:39 Dose: 81 mg Dextrose (Dextrose 50% Inj) 0 ml IV STAT PRN; Protocol PRN Reason: Hypoglycemia Protocol Last Admin: 07/22/18 11:53 Dose: 50 ml Dextrose (Glutose 15) 0 gm PO ONCE PRN; Protocol PRN Reason: Hypoglycemia Protocol Docusate Sodium (Colace) 100 mg PO BID [facility] Last Admin: 08/01/18 09:40 Dose: 100 mg Enalapril Maleate (Vasotec) 30 mg PO DAILY [facility] Last Admin: 08/01/18 09:41 Dose: 30 mg Finasteride (Proscar) 5 mg PO DAILY [facility] Last Admin: 08/01/18 09:40 Dose: 5 mg Gabapentin (Neurontin) 100 mg PO TID [facility] Last Admin: 08/01/18 09:41 Dose: 100 mg Glucagon (Glucagen Diagnostic Kit) 0 mg IM STAT PRN; Protocol PRN Reason: Hypoglycemia Protocol Cefazolin Sodium 2,000 mg/ (Sodium Chloride) 50 mls @ 100 mls/hr IVPB Q8H [facility]; Protocol Last Admin: 08/01/18 03:03 Dose: 100 mls/hr Insulin Glargine (Lantus) 20 unit SC DAILY [facility] Last Admin: 08/01/18 09:39 Dose: 20 units Insulin Human Regular (Novolin R) 0 unit SC ACHS [facility]; Protocol Last Admin: 08/01/18 08:37 Dose: 3 units Metoprolol Succinate (Toprol Xl) 50 mg PO DAILY [facility] Last Admin: 08/01/18 09:41 Dose: 50 mg Mupirocin (Bactroban Ointment) 0 gm TOP BID [facility] Last Admin: 07/31/18 17:36 Dose: 1 applic Oxycodone/Acetaminophen (Percocet 5/325 Mg Tab) 1 tab PO Q8H PRN PRN Reason: Pain, moderate (4-7) Stop: 08/04/18 08:01 Pantoprazole Sodium (Protonix Ec Tab) 40 mg PO DAILY [facility] Last Admin: 08/01/18 09:42 Dose: 40 mg Tamsulosin HCl (Flomax) 0.4 mg PO BID [facility] Last Admin: 08/01/18 09:40 Dose: 0.4 mg Results - Vital Signs Recent Vital Signs: Last Vital Signs Temp 97.8 F 08/01/18 08:00 Pulse 76 08/01/18 08:00 Resp 20 08/01/18 08:00 BP 154/77 H 08/01/18 09:41 Pulse Ox 96 08/01/18 08:00 - Labs Result Diagrams: 08/01/18 08:05 08/01/18 08:05 Labs: Laboratory Results - last 24 hr 07/31/18 07/31/18 07/31/18 11:24 14:53 16:14 WBC RBC Hgb Hct MCV MCH MCHC RDW Plt Count MPV Neut % (Auto) Lymph % (Auto) [place] % (Auto) Eos % (Auto) Baso % (Auto) Neut # (Auto) Lymph # (Auto) [place] # (Auto) Eos # (Auto) Baso # (Auto) Sodium Potassium Chloride Carbon Dioxide Anion Gap BUN Creatinine Est GFR ( Amer) Est GFR (Non-Af Amer) POC Glucose (mg/dL) 327 H 296 H Random Glucose Calcium Phosphorus Magnesium Total Bilirubin AST ALT Alkaline Phosphatase Total Protein Albumin Globulin Albumin/Globulin Ratio Urine Collection Time 24 Urine Total Volume 2050 Ur Sodium 24 Hour 203.0 07/31/18 08/01/18 08/01/18 21:05 07:13 08:05 WBC RBC Hgb Hct MCV MCH MCHC RDW Plt Count MPV Neut % (Auto) Lymph % (Auto) [place] % (Auto) Eos % (Auto) Baso % (Auto) Neut # (Auto) Lymph # (Auto) [place] # (Auto) Eos # (Auto) Baso # (Auto) Sodium 129 L Potassium 4.3 Chloride 97 L Carbon Dioxide 26 Anion Gap 10 BUN 18 Creatinine 0.8 Est GFR ( Amer) > 60 Est GFR (Non-Af Amer) > 60 POC Glucose (mg/dL) 251 H 226 H Random Glucose 227 H Calcium 8.4 L Phosphorus 4.2 Magnesium 1.8 Total Bilirubin 0.2 AST 19 ALT 13 L Alkaline Phosphatase 110 Total Protein 6.5 Albumin 2.7 L Globulin 3.8 Albumin/Globulin Ratio 0.7 L Urine Collection Time Urine Total Volume Ur Sodium 24 Hour 08/01/18 08:05 WBC 11.6 H RBC 2.73 L Hgb 8.1 L Hct 23.6 L MCV 86.5 MCH 29.6 MCHC 34.2 RDW 13.1 Plt Count 545 H MPV 8.0 Neut % (Auto) 78.0 H Lymph % (Auto) 13.1 L [place] % (Auto) 5.1 Eos % (Auto) 2.8 Baso % (Auto) 1.0 Neut # (Auto) 9.0 H Lymph # (Auto) 1.5 [place] # (Auto) 0.6 Eos # (Auto) 0.3 Baso # (Auto) 0.1 Sodium Potassium Chloride Carbon Dioxide Anion Gap BUN Creatinine Est GFR ( Amer) Est GFR (Non-Af Amer) POC Glucose (mg/dL) Random Glucose Calcium Phosphorus Magnesium Total Bilirubin AST ALT Alkaline Phosphatase Total Protein Albumin Globulin Albumin/Globulin Ratio Urine Collection Time Urine Total Volume Ur Sodium 24 Hour Attending/Attestation - Attestation I have personally seen and examined this patient.: Yes I have fully participated in the care of the patient.: Yes I have reviewed all pertinent clinical information: Yes Notes (Text): 08/01/18 10:40 No indication for KASH at this time if repeat blood cx +ve then will arrange for [facility]
--- NOTE | 2018-07-31 19:13 | CP.PCM.PN ---
Subjective - Date & Time of Evaluation Date of Evaluation: 07/31/18 Time of Evaluation: 08:00 - Subjective Subjective: events noted + discitis + psoas abscess may have endocarditis for KASH Objective - Vital Signs/Intake and Output Vital Signs (last 24 hours): Temp Pulse Resp BP Pulse Ox 98.7 F 76 20 170/75 H 98 07/31/18 15:54 07/31/18 15:54 07/31/18 15:54 07/31/18 15:54 07/31/18 15:54 Intake and Output: 07/31/18 08/01/18 18:59 06:59 Intake Total 450 Output Total 1000 Balance -550 - Medications Medications: Current Medications Acetaminophen (Tylenol 325mg Tab) 650 mg PO Q6 PRN PRN Reason: Fever >100.4 or Pain Last Admin: 07/28/18 17:28 Dose: 650 mg Aspirin (Ecotrin) 81 mg PO DAILY [facility] Last Admin: 07/31/18 10:28 Dose: 81 mg Dextrose (Dextrose 50% Inj) 0 ml IV STAT PRN; Protocol PRN Reason: Hypoglycemia Protocol Last Admin: 07/22/18 11:53 Dose: 50 ml Dextrose (Glutose 15) 0 gm PO ONCE PRN; Protocol PRN Reason: Hypoglycemia Protocol Docusate Sodium (Colace) 100 mg PO BID [facility] Last Admin: 07/31/18 17:36 Dose: 100 mg Enalapril Maleate (Vasotec) 30 mg PO DAILY [facility] Last Admin: 07/31/18 10:27 Dose: 30 mg Finasteride (Proscar) 5 mg PO DAILY [facility] Last Admin: 07/31/18 10:27 Dose: 5 mg Gabapentin (Neurontin) 100 mg PO TID [facility] Last Admin: 07/31/18 17:36 Dose: 100 mg Glucagon (Glucagen Diagnostic Kit) 0 mg IM STAT PRN; Protocol PRN Reason: Hypoglycemia Protocol Cefazolin Sodium 2,000 mg/ (Sodium Chloride) 50 mls @ 100 mls/hr IVPB Q8H [facility]; Protocol Last Admin: 07/31/18 18:42 Dose: 100 mls/hr Insulin Glargine (Lantus) 20 unit SC DAILY [facility] Last Admin: 07/31/18 11:20 Dose: 20 units Insulin Human Regular (Novolin R) 0 unit SC ACHS [facility]; Protocol Last Admin: 07/31/18 17:07 Dose: 4 units Metoprolol Succinate (Toprol Xl) 50 mg PO DAILY [facility] Last Admin: 07/31/18 10:31 Dose: 50 mg Mupirocin (Bactroban Ointment) 0 gm TOP BID [facility] Last Admin: 07/31/18 17:36 Dose: 1 applic Oxycodone/Acetaminophen (Percocet 5/325 Mg Tab) 1 tab PO Q4H PRN PRN Reason: Pain, moderate (4-7) Stop: 08/01/18 11:38 Last Admin: 07/31/18 10:28 Dose: 1 tab Pantoprazole Sodium (Protonix Ec Tab) 40 mg PO DAILY [facility] Last Admin: 07/31/18 10:28 Dose: 40 mg Tamsulosin HCl (Flomax) 0.4 mg PO BID [facility] Last Admin: 07/31/18 17:36 Dose: 0.4 mg - Labs Labs: 07/31/18 07:33 07/31/18 07:33 PT 15.6 SECONDS (9.7-12.2) H 07/21/18 20:28 INR 1.4 07/21/18 20:28 APTT 34 SECONDS (21-34) 07/21/18 20:28 - Constitutional Appears: Non-toxic, Chronically Ill - Head Exam Head Exam: NORMOCEPHALIC - Eye Exam Eye Exam: absent: Scleral icterus - ENT Exam ENT Exam: Mucous Membranes Dry - Neck Exam Neck Exam: absent: Lymphadenopathy - Respiratory Exam Respiratory Exam: Decreased Breath Sounds - Cardiovascular Exam Cardiovascular Exam: REGULAR RHYTHM - GI/Abdominal Exam GI & Abdominal Exam: Distended, Soft - Rectal Exam Rectal Exam: Deferred - Exam Exam: NORMAL INSPECTION Assessment and Plan (1) Respiratory failure Status: Acute (2) Toxic metabolic encephalopathy Status: Acute (3) Acute hyperglycemia Status: Acute (4) Sepsis Status: Acute (5) Sepsis affecting skin Status: Acute (6) Discitis of lumbosacral region Status: Acute (7) Osteomyelitis of lumbar spine Status: Acute (8) Psoas abscess Status: Acute (9) Psoas muscle abscess Status: Acute - Assessment and Plan (Free Text) Assessment: cont iv rx min 6-8 weeks neurosurg eval KASH
[2018-08-01] MEDS: Oxycodone/Acetaminophen 5/325 mg Tab PO PRN ×3 (06:02→21:52)
--- NOTE | 2018-08-01 08:09 | CP.PCM.PN ---
<Axel Hollis - Last Filed: 08/01/18 10:26> Subjective - Date & Time of Evaluation Date of Evaluation: 08/01/18 Time of Evaluation: 07:40 - Subjective Subjective: Axel Hollis PGY-[address] Ge Patient seen and evaluated at bedside. No acute events reported overnight. Completed 24 hour urine collection, currently back with sagastume catheter. Objective - Vital Signs/Intake and Output Vital Signs (last 24 hours): Temp Pulse Resp BP Pulse Ox 97.8 F 81 20 152/77 H 97 08/01/18 00:28 08/01/18 00:28 08/01/18 00:28 08/01/18 00:28 08/01/18 00:28 Intake and Output: 08/01/18 08/01/18 06:59 18:59 Intake Total 850 Output Total 1300 Balance -450 - Medications Medications: Current Medications Acetaminophen (Tylenol 325mg Tab) 650 mg PO Q6 PRN PRN Reason: Fever >100.4 or Pain Last Admin: 07/28/18 17:28 Dose: 650 mg Aspirin (Ecotrin) 81 mg PO DAILY [facility] Last Admin: 07/31/18 10:28 Dose: 81 mg Dextrose (Dextrose 50% Inj) 0 ml IV STAT PRN; Protocol PRN Reason: Hypoglycemia Protocol Last Admin: 07/22/18 11:53 Dose: 50 ml Dextrose (Glutose 15) 0 gm PO ONCE PRN; Protocol PRN Reason: Hypoglycemia Protocol Docusate Sodium (Colace) 100 mg PO BID [facility] Last Admin: 07/31/18 17:36 Dose: 100 mg Enalapril Maleate (Vasotec) 30 mg PO DAILY [facility] Last Admin: 07/31/18 10:27 Dose: 30 mg Finasteride (Proscar) 5 mg PO DAILY [facility] Last Admin: 07/31/18 10:27 Dose: 5 mg Gabapentin (Neurontin) 100 mg PO TID [facility] Last Admin: 07/31/18 17:36 Dose: 100 mg Glucagon (Glucagen Diagnostic Kit) 0 mg IM STAT PRN; Protocol PRN Reason: Hypoglycemia Protocol Cefazolin Sodium 2,000 mg/ (Sodium Chloride) 50 mls @ 100 mls/hr IVPB Q8H [facility]; Protocol Last Admin: 08/01/18 03:03 Dose: 100 mls/hr Insulin Glargine (Lantus) 20 unit SC DAILY [facility] Last Admin: 07/31/18 11:20 Dose: 20 units Insulin Human Regular (Novolin R) 0 unit SC [facility]; Protocol Last Admin: 07/31/18 21:34 Dose: Not Given Metoprolol Succinate (Toprol Xl) 50 mg PO DAILY [facility] Last Admin: 07/31/18 10:31 Dose: 50 mg Mupirocin (Bactroban Ointment) 0 gm TOP BID [facility] Last Admin: 07/31/18 17:36 Dose: 1 applic Oxycodone/Acetaminophen (Percocet 5/325 Mg Tab) 1 tab PO Q8H PRN PRN Reason: Pain, moderate (4-7) Stop: 08/04/18 08:01 Pantoprazole Sodium (Protonix Ec Tab) 40 mg PO DAILY [facility] Last Admin: 07/31/18 10:28 Dose: 40 mg Tamsulosin HCl (Flomax) 0.4 mg PO BID [facility] Last Admin: 07/31/18 17:36 Dose: 0.4 mg - Labs Labs: 07/31/18 07:33 07/31/18 07:33 PT 15.6 SECONDS (9.7-12.2) H 07/21/18 20:28 INR 1.4 07/21/18 20:28 APTT 34 SECONDS (21-34) 07/21/18 20:28 - Additional Findings Additional findings: - Constitutional Appears: Somewhat somnolent, No Acute Distress - Eye Exam Eye Exam: EOMI, Normal appearance, PERRL - ENT Exam ENT Exam: Mucous Membranes Moist. Healed Erosions to L lower lip Additional comments: ulcerative lesion on the L nares and L malar region, erythema with slight granulation tissue. cartilage visible. No obvious drainage. - Respiratory Exam Respiratory Exam: Clear to Ausculation Bilateral, NORMAL BREATHING PATTERN. absent: Rales, Rhonchi, Wheezes, Respiratory Distress - Cardiovascular Exam Cardiovascular Exam: REGULAR RHYTHM, +S1, +S2. Tenderness to palpation of right and left chest. absent: Gallop, Rubs, Murmur. - GI/Abdominal Exam GI & Abdominal Exam: Soft, Tenderness, Normal Bowel Sounds. absent: Distended, Firm Additional comments: tenderness to palpation of LLQ - Extremities Exam Extremities Exam: absent: Pedal Edema Additional comments: bilateral knee amputations Assessment and Plan - Assessment and Plan (Free Text) Assessment: Assessment: Mr. Bowling is a Mosotho speaking 53 M with poorly controlled DM2, Staph aureus bacteremia, lumbar spinal abscess and L facial cellulitis resulting in damage to left nostril and cartilage erosion. Plan: Staph Aureus bacteremia - Multiple modes of entry, including lumbar abscess and maxillofacial ulcer in setting of poor diabetes control and ? untreated basal cell carcinoma near L nares - At this time, as prelim repeat blood cultures are negative after 48 hours, guidelines suggest to defer KASH to a time at which patient is persistently bacteremic while on antibiotics - Continue to monitor cultures at 72 hours and clinical presentation Chest Pain, likely chostochondritis vs ACS - Trops neg x2 - Reproducible Chest Pain upon palpation - ASA 81 HTN - 152/77 most recently, better controlled - Enalapril, Metoprolol - continue to monitor Patient seen, case discussed with Dr. Ge. Further recommendations per Dr. Ge. Axel Hollis, PGY-1 <Nilo Ge - Last Filed: 08/01/18 10:40> Objective - Vital Signs/Intake and Output Vital Signs (last 24 hours): Temp Pulse Resp BP Pulse Ox 97.8 F 76 20 154/77 H 96 08/01/18 08:00 08/01/18 08:00 08/01/18 08:00 08/01/18 09:41 08/01/18 08:00 Intake and Output: 08/01/18 08/01/18 06:59 18:59 Intake Total 850 Output Total 1300 Balance -450 - Medications Medications: Current Medications Acetaminophen (Tylenol 325mg Tab) 650 mg PO Q6 PRN PRN Reason: Fever >100.4 or Pain Last Admin: 07/28/18 17:28 Dose: 650 mg Aspirin (Ecotrin) 81 mg PO DAILY [facility] Last Admin: 08/01/18 09:39 Dose: 81 mg Dextrose (Dextrose 50% Inj) 0 ml IV STAT PRN; Protocol PRN Reason: Hypoglycemia Protocol Last Admin: 07/22/18 11:53 Dose: 50 ml Dextrose (Glutose 15) 0 gm PO ONCE PRN; Protocol PRN Reason: Hypoglycemia Protocol Docusate Sodium (Colace) 100 mg PO BID [facility] Last Admin: 08/01/18 09:40 Dose: 100 mg Enalapril Maleate (Vasotec) 30 mg PO DAILY [facility] Last Admin: 08/01/18 09:41 Dose: 30 mg Finasteride (Proscar) 5 mg PO DAILY [facility] Last Admin: 08/01/18 09:40 Dose: 5 mg Gabapentin (Neurontin) 100 mg PO TID [facility] Last Admin: 08/01/18 09:41 Dose: 100 mg Glucagon (Glucagen Diagnostic Kit) 0 mg IM STAT PRN; Protocol PRN Reason: Hypoglycemia Protocol Cefazolin Sodium 2,000 mg/ (Sodium Chloride) 50 mls @ 100 mls/hr IVPB Q8H [facility]; Protocol Last Admin: 08/01/18 03:03 Dose: 100 mls/hr Insulin Glargine (Lantus) 20 unit SC DAILY [facility] Last Admin: 08/01/18 09:39 Dose: 20 units Insulin Human Regular (Novolin R) 0 unit SC ACHS [facility]; Protocol Last Admin: 08/01/18 08:37 Dose: 3 units Metoprolol Succinate (Toprol Xl) 50 mg PO DAILY [facility] Last Admin: 08/01/18 09:41 Dose: 50 mg Mupirocin (Bactroban Ointment) 0 gm TOP BID [facility] Last Admin: 07/31/18 17:36 Dose: 1 applic Oxycodone/Acetaminophen (Percocet 5/325 Mg Tab) 1 tab PO Q8H PRN PRN Reason: Pain, moderate (4-7) Stop: 08/04/18 08:01 Pantoprazole Sodium (Protonix Ec Tab) 40 mg PO DAILY [facility] Last Admin: 08/01/18 09:42 Dose: 40 mg Tamsulosin HCl (Flomax) 0.4 mg PO BID [facility] Last Admin: 08/01/18 09:40 Dose: 0.4 mg - Labs Labs: 08/01/18 08:05 08/01/18 08:05 PT 15.6 SECONDS (9.7-12.2) H 07/21/18 20:28 INR 1.4 07/21/18 20:28 APTT 34 SECONDS (21-34) 07/21/18 20:28 Attending/Attestation - Attestation I have personally seen and examined this patient.: Yes I have fully participated in the care of the patient.: Yes I have reviewed all pertinent clinical information, including history, physical exam and plan: Yes Notes (Text): 08/01/18 10:39 Consider KASH if patient had recurrent blood cx +ve rx per ID
[2018-08-01 08:16] LABS: BASO # 0.1 K/uL (0.0-0.2); EOS # 0.3 K/uL (0.0-0.7); EOS % 2.8 % (0.0-4.0); HEMOGLOBIN 8.1 g/dL (12.0-18.0); LYMPH # 1.5 K/uL (1.0-4.3); LYMPH % 13.1 % (20.0-40.0); MEAN CELL VOLUME 86.5 fL (80.0-94.0); MEAN CORPUSCULAR HEMOGLOBIN 29.6 pg (27.0-31.0); MEAN CORPUSCULAR HGB CONC 34.2 g/dL (33.0-37.0); MONO # 0.6 K/uL (0.0-0.8); MONO % 5.1 % (0.0-10.0); RBC 2.73 Mil/uL (4.40-5.90); RED CELL DISTRIBUTION WIDTH 13.1 % (11.5-14.5); WHITE BLOOD COUNT 11.6 K/uL (4.8-10.8)
[2018-08-01] MEDS: (Novolin R) Insulin Human Regular 100 units/ml vial SC SCH ×5 (08:37→21:51)
[2018-08-01 08:48] LABS: ALB/GLOB RATIO 0.7 (1.0-2.1); ALBUMIN 2.7 g/dL (3.5-5.0); ALT/SGPT 13 U/L (21-72); AST/SGOT 19 U/L (17-59); BLOOD UREA NITROGEN 18 mg/dL (9-20); CALCIUM 8.4 mg/dl (8.6-10.4); GFR NON-AFRICAN AMERICAN > 60
[2018-08-01] MEDS: (Lantus) Insulin Glargine, Recombinant SC SCH (09:39)
[2018-08-01] MEDS: Metoprolol Succinate 50 mg XL Tab PO SCH (09:41)
[2018-08-01] MEDS: Pantoprazole 40 mg EC Tab PO SCH (09:42)
--- NOTE | 2018-08-01 09:57 | CP.PCM.PN ---
<Ronit Rodriguez - Last Filed: 08/01/18 14:45> Subjective - Date & Time of Evaluation Date of Evaluation: 08/01/18 Time of Evaluation: 09:54 - Subjective Subjective: Ronit Rodriugez PGY1 Progress Note for Dr. Curiel Pt was examined at bedside this morning. He reports improvement of back pain upon pain medication. He now complains of right sided neck pain. He denies chest pain, shortness of breath. Objective - Vital Signs/Intake and Output Vital Signs (last 24 hours): Temp Pulse Resp BP Pulse Ox 97.8 F 76 20 154/77 H 96 08/01/18 08:00 08/01/18 08:00 08/01/18 08:00 08/01/18 09:41 08/01/18 08:00 Intake and Output: 08/01/18 08/01/18 06:59 18:59 Intake Total 850 Output Total 1300 Balance -450 - Medications Medications: Current Medications Acetaminophen (Tylenol 325mg Tab) 650 mg PO Q6 PRN PRN Reason: Fever >100.4 or Pain Last Admin: 07/28/18 17:28 Dose: 650 mg Aspirin (Ecotrin) 81 mg PO DAILY [facility] Last Admin: 08/01/18 09:39 Dose: 81 mg Dextrose (Dextrose 50% Inj) 0 ml IV STAT PRN; Protocol PRN Reason: Hypoglycemia Protocol Last Admin: 07/22/18 11:53 Dose: 50 ml Dextrose (Glutose 15) 0 gm PO ONCE PRN; Protocol PRN Reason: Hypoglycemia Protocol Docusate Sodium (Colace) 100 mg PO BID [facility] Last Admin: 08/01/18 09:40 Dose: 100 mg Enalapril Maleate (Vasotec) 30 mg PO DAILY [facility] Last Admin: 08/01/18 09:41 Dose: 30 mg Finasteride (Proscar) 5 mg PO DAILY [facility] Last Admin: 08/01/18 09:40 Dose: 5 mg Gabapentin (Neurontin) 100 mg PO TID [facility] Last Admin: 08/01/18 09:41 Dose: 100 mg Glucagon (Glucagen Diagnostic Kit) 0 mg IM STAT PRN; Protocol PRN Reason: Hypoglycemia Protocol Cefazolin Sodium 2,000 mg/ (Sodium Chloride) 50 mls @ 100 mls/hr IVPB Q8H [facility]; Protocol Last Admin: 08/01/18 03:03 Dose: 100 mls/hr Insulin Glargine (Lantus) 20 unit SC DAILY [facility] Last Admin: 08/01/18 09:39 Dose: 20 units Insulin Human Regular (Novolin R) 0 unit SC ACHS [facility]; Protocol Last Admin: 08/01/18 08:37 Dose: 3 units Metoprolol Succinate (Toprol Xl) 50 mg PO DAILY [facility] Last Admin: 08/01/18 09:41 Dose: 50 mg Mupirocin (Bactroban Ointment) 0 gm TOP BID [facility] Last Admin: 07/31/18 17:36 Dose: 1 applic Oxycodone/Acetaminophen (Percocet 5/325 Mg Tab) 1 tab PO Q8H PRN PRN Reason: Pain, moderate (4-7) Stop: 08/04/18 08:01 Pantoprazole Sodium (Protonix Ec Tab) 40 mg PO DAILY [facility] Last Admin: 08/01/18 09:42 Dose: 40 mg Tamsulosin HCl (Flomax) 0.4 mg PO BID [facility] Last Admin: 08/01/18 09:40 Dose: 0.4 mg - Labs Labs: 08/01/18 08:05 08/01/18 08:05 PT 15.6 SECONDS (9.7-12.2) H 07/21/18 20:28 INR 1.4 07/21/18 20:28 APTT 34 SECONDS (21-34) 07/21/18 20:28 - Additional Findings Additional findings: - Constitutional Appears: No Acute Distress, Chronically Ill - Head Exam Additional comments: ulcerative lesion on the L nare and L malar region, erythema with slight granulation tissue. no drainage noted. cartilage visible. - Eye Exam Eye Exam: EOMI, Normal appearance, PERRL - ENT Exam ENT Exam: Mucous Membranes Moist Additional comments: ulcerative lesion on the L nare and L malar region, erythema with slight granulation tissue. no drainage noted. cartilage visible. - Respiratory Exam Respiratory Exam: Clear to Ausculation Bilateral, NORMAL BREATHING PATTERN. absent: Rales, Rhonchi, Wheezes, Respiratory Distress - Cardiovascular Exam Cardiovascular Exam: REGULAR RHYTHM, +S1, +S2. absent: Gallop, Rubs, Murmur. - GI/Abdominal Exam GI & Abdominal Exam: Soft, Tenderness, Normal Bowel Sounds. absent: Distended, Firm Additional comments: tenderness to palpation of LLQ - Extremities Exam Extremities Exam: absent: Pedal Edema Additional comments: b/l knee amputations - Neurological Exam Neurological Exam: Alert, Awake, Oriented x3. absent: Motor Sensory Deficit - Skin Skin Exam: Normal Color Assessment and Plan - Assessment and Plan (Free Text) Assessment: 53 yo male with a history of uncontrolled T2DM (s/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 Patient's blood cultures are positive for Staph aureus, currently being treated for bacteremia. Plan: Staph Aureus Bacteremia: - Blood Cx positive for Staph aureus - Rpt BCx negative - likely source spinal abscess - ancef 2000mg IV q8h (07/25), as per ID - 6-8 week course antibiotic treatment, as per ID - Tmax 100.8 07/25 - Tylenol 650 mg PO Q6H PRN - Procal 14.74 - UA 07/21: many magda, 340 WBC, trace LE, negative nitrate - UA 07/23: negative LE, negative nitrates - Urine Cx: no growth - Echo: LV normal size and EF. LA mildly dilated. Mild TR. - Cardio consulted, Dr. Ge - consider KASH if BCx+ in future - ID consulted - Mangia L Maxillofacial Ulcer - CT 07/25: soft tissue swelling, no osteomyelitis or drainable fluid - ancef 2000mg IV q8h (07/25), as per ID - mupirocin 2g top BID - 6-8 week course antibiotic treatment, as per ID - wound care consulted - Pt following up with plastic surgeon at [facility] sep 04 - ID consulted - Mangia Spinal Abscess - MRI L-spine: suspicious for discitis osteomyelitis involving L4-5 intervetebral disc w/ anterior epidural abscess, R iliopsoas fluid collection 1.5x1.9cm - pt reports 3 month history, with radiation and urinary retention - ancef 2000mg IV q8h (07/25) - percocet 325/5mg PO q8h PRN - IR consulted, Dr. Fragoso - psoas collection to small to drain, consult neuro surgery for spinal abscess - NeuroSx consulted, Dr. Olivia - no intervention at this time HTN - patient persistently hypertensive - ASA 81 mg PO daily - Enalapril 30 mg PO daily - Metoprolol 50 mg PO daily [facility] - CXR: no acute findings - CT A/P: LLL consolidation vs atelectasis - ancef 2000mg IV q8h (07/25) AIDA - BUN/Cr 19/0.8, resolved - I/O: 1300/2300 - Replete electrolytes PRN Hyponatremia - Na 129 - likely dilutional - urine osmolality 454, wnl - serum osmolality 297, wnl - urine 24hr sodium 203 - water restriction: 1000ml/day Urinary Retention - CT A/P: bladder wall thickening (cystitis), b/l renal parenchymal high density may be underlying metabolic disorder - sagastume catheter - flomax 0.4mg PO BID - finasteride 5mg PO daily - Urology consulted: Titi Kam - maintain sagastume Unresponsiveness - resolved, pt AAOx3 - Code stroke - EEG: nonspecific abnormalities, no seizures noted - CT head: no acute findings - CTA head and neck: no significant stenoses or abnormalities - PRL wnl (12.9) - Gabapentin 100 mg PO TID - Neurology consulted: Manda - no need for anticonvulsant at this time - PT/OT/ST DM type 2 - A1c 8.9 - medium dose Novolin R ISS - lantus 20u SC daily - Hypoglycemia protocol - Accuchecks ACHS Ppx: DVT: Heparin 5000 units Q12H GI: Protonix 40 mg PO daily Dispo: pt without insurance and undocumented citizen, pending medicaid acceptance Pt seen with and case discussed with Dr. Curiel <Mila Curiel - Last Filed: 08/01/18 17:06> Objective - Vital Signs/Intake and Output Vital Signs (last 24 hours): Temp Pulse Resp BP Pulse Ox 97.7 F 78 20 164/79 H 95 08/01/18 16:00 08/01/18 16:00 08/01/18 16:00 08/01/18 16:00 08/01/18 16:00 Intake and Output: 08/01/18 08/01/18 06:59 18:59 Intake Total 850 300 Output Total 1300 1300 Balance -450 -1000 - Medications Medications: Current Medications Acetaminophen (Tylenol 325mg Tab) 650 mg PO Q6 PRN PRN Reason: Fever >100.4 or Pain Last Admin: 07/28/18 17:28 Dose: 650 mg Aspirin (Ecotrin) 81 mg PO DAILY [facility] Last Admin: 08/01/18 09:39 Dose: 81 mg Dextrose (Dextrose 50% Inj) 0 ml IV STAT PRN; Protocol PRN Reason: Hypoglycemia Protocol Last Admin: 07/22/18 11:53 Dose: 50 ml Dextrose (Glutose 15) 0 gm PO ONCE PRN; Protocol PRN Reason: Hypoglycemia Protocol Docusate Sodium (Colace) 100 mg PO BID [facility] Last Admin: 08/01/18 09:40 Dose: 100 mg Enalapril Maleate (Vasotec) 30 mg PO DAILY [facility] Last Admin: 08/01/18 09:41 Dose: 30 mg Finasteride (Proscar) 5 mg PO DAILY [facility] Last Admin: 08/01/18 09:40 Dose: 5 mg Gabapentin (Neurontin) 100 mg PO TID [facility] Last Admin: 08/01/18 13:35 Dose: 100 mg Glucagon (Glucagen Diagnostic Kit) 0 mg IM STAT PRN; Protocol PRN Reason: Hypoglycemia Protocol Cefazolin Sodium 2,000 mg/ (Sodium Chloride) 50 mls @ 100 mls/hr IVPB Q8H [facility]; Protocol Last Admin: 08/01/18 11:50 Dose: 100 mls/hr Insulin Glargine (Lantus) 20 unit SC DAILY [facility] Last Admin: 08/01/18 09:39 Dose: 20 units Insulin Human Regular (Novolin R) 0 unit SC ACHS [facility]; Protocol Last Admin: 08/01/18 12:12 Dose: 6 units Metoprolol Succinate (Toprol Xl) 50 mg PO DAILY [facility] Last Admin: 08/01/18 09:41 Dose: 50 mg Mupirocin (Bactroban Ointment) 0 gm TOP BID [facility] Last Admin: 08/01/18 10:54 Dose: 1 applic Oxycodone/Acetaminophen (Percocet 5/325 Mg Tab) 1 tab PO Q8H PRN PRN Reason: Pain, moderate (4-7) Stop: 08/04/18 08:01 Last Admin: 08/01/18 11:50 Dose: 1 tab Pantoprazole Sodium (Protonix Ec Tab) 40 mg PO DAILY [facility] Last Admin: 08/01/18 09:42 Dose: 40 mg Tamsulosin HCl (Flomax) 0.4 mg PO BID [facility] Last Admin: 08/01/18 09:40 Dose: 0.4 mg - Labs Labs: 08/01/18 08:05 08/01/18 08:05 PT 15.6 SECONDS (9.7-12.2) H 07/21/18 20:28 INR 1.4 07/21/18 20:28 APTT 34 SECONDS (21-34) 07/21/18 20:28 Attending/Attestation - Attestation I have personally seen and examined this patient.: Yes I have fully participated in the care of the patient.: Yes I have reviewed all pertinent clinical information, including history, physical exam and plan: Yes Notes (Text): Patient was seen and examined with the resident Assessment and the plan discussed bacteremia,s/p picc line,patient is on ancef MRI -L-spine: suspicious for discitis osteomyelitis involving L4-5 intervetebral disc w/ anterior epidural abscess, R iliopsoas fluid collection 1.5x1.9cm follow IR and neurosurgery recommendation
--- NOTE | 2018-08-01 13:23 | CP.PCM.PN ---
Subjective - Date & Time of Evaluation Date of Evaluation: 08/01/18 Time of Evaluation: 13:23 - Subjective Subjective: full consult dictated no surgical intervention indicated if bx is needed contact IR Objective - Vital Signs/Intake and Output Vital Signs (last 24 hours): Temp Pulse Resp BP Pulse Ox 97.8 F 76 20 154/77 H 96 08/01/18 08:00 08/01/18 08:00 08/01/18 08:00 08/01/18 09:41 08/01/18 08:00 Intake and Output: 08/01/18 08/01/18 06:59 18:59 Intake Total 850 Output Total 1300 Balance -450 - Medications Medications: Current Medications Acetaminophen (Tylenol 325mg Tab) 650 mg PO Q6 PRN PRN Reason: Fever >100.4 or Pain Last Admin: 07/28/18 17:28 Dose: 650 mg Aspirin (Ecotrin) 81 mg PO DAILY [facility] Last Admin: 08/01/18 09:39 Dose: 81 mg Dextrose (Dextrose 50% Inj) 0 ml IV STAT PRN; Protocol PRN Reason: Hypoglycemia Protocol Last Admin: 07/22/18 11:53 Dose: 50 ml Dextrose (Glutose 15) 0 gm PO ONCE PRN; Protocol PRN Reason: Hypoglycemia Protocol Docusate Sodium (Colace) 100 mg PO BID [facility] Last Admin: 08/01/18 09:40 Dose: 100 mg Enalapril Maleate (Vasotec) 30 mg PO DAILY [facility] Last Admin: 08/01/18 09:41 Dose: 30 mg Finasteride (Proscar) 5 mg PO DAILY [facility] Last Admin: 08/01/18 09:40 Dose: 5 mg Gabapentin (Neurontin) 100 mg PO TID [facility] Last Admin: 08/01/18 09:41 Dose: 100 mg Glucagon (Glucagen Diagnostic Kit) 0 mg IM STAT PRN; Protocol PRN Reason: Hypoglycemia Protocol Cefazolin Sodium 2,000 mg/ (Sodium Chloride) 50 mls @ 100 mls/hr IVPB Q8H [facility]; Protocol Last Admin: 08/01/18 11:50 Dose: 100 mls/hr Insulin Glargine (Lantus) 20 unit SC DAILY [facility] Last Admin: 08/01/18 09:39 Dose: 20 units Insulin Human Regular (Novolin R) 0 unit SC ACHS [facility]; Protocol Last Admin: 08/01/18 12:12 Dose: 6 units Metoprolol Succinate (Toprol Xl) 50 mg PO DAILY [facility] Last Admin: 08/01/18 09:41 Dose: 50 mg Mupirocin (Bactroban Ointment) 0 gm TOP BID [facility] Last Admin: 08/01/18 10:54 Dose: 1 applic Oxycodone/Acetaminophen (Percocet 5/325 Mg Tab) 1 tab PO Q8H PRN PRN Reason: Pain, moderate (4-7) Stop: 08/04/18 08:01 Last Admin: 08/01/18 11:50 Dose: 1 tab Pantoprazole Sodium (Protonix Ec Tab) 40 mg PO DAILY [facility] Last Admin: 08/01/18 09:42 Dose: 40 mg Tamsulosin HCl (Flomax) 0.4 mg PO BID [facility] Last Admin: 08/01/18 09:40 Dose: 0.4 mg - Labs Labs: 08/01/18 08:05 08/01/18 08:05 PT 15.6 SECONDS (9.7-12.2) H 07/21/18 20:28 INR 1.4 07/21/18 20:28 APTT 34 SECONDS (21-34) 07/21/18 20:28
[2018-08-01 20:06] LABS: IRON 26 ug/dL (49-181)
[2018-08-01 20:15] LABS: % IRON SATURATION 11 (20-55); TOTAL IRON BINDING CAPACITY 239 ug/dL (250-450)
--- NOTE | 2018-08-02 06:50 | CON ---
DATE: 08/01/2018 HISTORY OF PRESENT ILLNESS: This is a 53-year-old male with history of uncontrolled diabetes, hypertension, cellulitis of his face with eversion of the left nostril. The patient was found unresponsive at home prior to admission and was intubated on arrival. This resolved, and he was worked up for complaints of low back pain. The MRI of the low back demonstrated edematous changes at the L4 and L5 vertebral body with apparent discitis at L4-L5. There was some edema in the prevertebral paraspinal tissues. The MRI was read also as central stenosis at L4-L5. There is also questionable epidural fluid posterior to the L4 body as well as the upper mid anterior epidural space at L5. I personally reviewed the films. I did not feel that there is any significant neurocompression there. 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 PHYSICAL EXAMINATION: His examination finds that he has tenderness in his low back to palpation. He has bilateral BK amputation. He has good strength in the iliopsoas bilaterally, and I could not delineate any sensory deficits. ASSESSMENT AND PLAN: At this point, if tissue diagnosis is needed, I would recommend a needle biopsy of the disc space; however, he has been on antibiotics now for 8 days, and the chance is that a positive culture will be minimal. I understand that interventional radiology attempted to drain the psoas muscle abscess, but they feel it is not reachable. Doing a biopsy would still be a possibility even though they could not drain this small abscess. At this time, there is no surgical intervention indicated. If there is a change in his status, please re-contact us. Srikanth Olivia MD
--- NOTE | 2018-08-02 07:17 | CP.PCM.PN ---
<Ronit Rodriguez - Last Filed: 08/02/18 14:49> Subjective - Date & Time of Evaluation Date of Evaluation: 08/02/18 Time of Evaluation: 07:15 - Subjective Subjective: Ronit Rodriguez PGY [address] Curiel Pt was examined at bedside this morning. He complained of his back pain and right sided shoulder/chest pain. Objective - Vital Signs/Intake and Output Vital Signs (last 24 hours): Temp Pulse Resp BP Pulse Ox 97.8 F 84 20 169/79 H 96 08/02/18 00:15 08/02/18 00:15 08/02/18 00:15 08/02/18 00:15 08/02/18 00:15 Intake and Output: 08/02/18 08/02/18 06:59 18:59 Intake Total 700 Output Total 1050 Balance -350 - Medications Medications: Current Medications Acetaminophen (Tylenol 325mg Tab) 650 mg PO Q6 PRN PRN Reason: Fever >100.4 or Pain Last Admin: 07/28/18 17:28 Dose: 650 mg Aspirin (Ecotrin) 81 mg PO DAILY [facility] Last Admin: 08/01/18 09:39 Dose: 81 mg Dextrose (Dextrose 50% Inj) 0 ml IV STAT PRN; Protocol PRN Reason: Hypoglycemia Protocol Last Admin: 07/22/18 11:53 Dose: 50 ml Dextrose (Glutose 15) 0 gm PO ONCE PRN; Protocol PRN Reason: Hypoglycemia Protocol Docusate Sodium (Colace) 100 mg PO BID [facility] Last Admin: 08/01/18 17:44 Dose: 100 mg Enalapril Maleate (Vasotec) 30 mg PO DAILY [facility] Last Admin: 08/01/18 09:41 Dose: 30 mg Finasteride (Proscar) 5 mg PO DAILY [facility] Last Admin: 08/01/18 09:40 Dose: 5 mg Gabapentin (Neurontin) 100 mg PO TID [facility] Last Admin: 08/01/18 17:45 Dose: 100 mg Glucagon (Glucagen Diagnostic Kit) 0 mg IM STAT PRN; Protocol PRN Reason: Hypoglycemia Protocol Cefazolin Sodium 2,000 mg/ (Sodium Chloride) 50 mls @ 100 mls/hr IVPB Q8H [facility]; Protocol Last Admin: 08/02/18 02:58 Dose: 100 mls/hr Insulin Glargine (Lantus) 20 unit SC DAILY [facility] Last Admin: 08/01/18 09:39 Dose: 20 units Insulin Human Regular (Novolin R) 0 unit SC [facility]; Protocol Last Admin: 08/01/18 21:51 Dose: 2 units Metoprolol Succinate (Toprol Xl) 50 mg PO DAILY [facility] Last Admin: 08/01/18 09:41 Dose: 50 mg Mupirocin (Bactroban Ointment) 0 gm TOP BID [facility] Last Admin: 08/01/18 21:57 Dose: 1 applic Oxycodone/Acetaminophen (Percocet 5/325 Mg Tab) 1 tab PO Q8H PRN PRN Reason: Pain, moderate (4-7) Stop: 08/04/18 08:01 Last Admin: 08/01/18 21:52 Dose: 1 tab Pantoprazole Sodium (Protonix Ec Tab) 40 mg PO DAILY [facility] Last Admin: 08/01/18 09:42 Dose: 40 mg Tamsulosin HCl (Flomax) 0.4 mg PO BID [facility] Last Admin: 08/01/18 17:44 Dose: 0.4 mg - Labs Labs: 08/01/18 08:05 08/01/18 08:05 PT 15.6 SECONDS (9.7-12.2) H 07/21/18 20:28 INR 1.4 07/21/18 20:28 APTT 34 SECONDS (21-34) 07/21/18 20:28 - Additional Findings Additional findings: - Constitutional Appears: No Acute Distress, Chronically Ill - Head Exam Additional comments: ulcerative lesion on the L nare and L malar region, erythema with slight granulation tissue. no drainage noted. cartilage visible. - Eye Exam Eye Exam: EOMI, Normal appearance, PERRL - ENT Exam ENT Exam: Mucous Membranes Moist Additional comments: ulcerative lesion on the L nare and L malar region, erythema with slight granulation tissue. no drainage noted. cartilage visible. - Respiratory Exam Respiratory Exam: Clear to Ausculation Bilateral, NORMAL BREATHING PATTERN. absent: Rales, Rhonchi, Wheezes, Respiratory Distress - Cardiovascular Exam Cardiovascular Exam: REGULAR RHYTHM, +S1, +S2. absent: Gallop, Rubs, Murmur. - GI/Abdominal Exam GI & Abdominal Exam: Soft, Tenderness, Normal Bowel Sounds. absent: Distended, Firm Additional comments: tenderness to palpation of LLQ - Extremities Exam Extremities Exam: absent: Pedal Edema Additional comments: b/l knee amputations - Neurological Exam Neurological Exam: Alert, Awake, Oriented x3. absent: Motor Sensory Deficit - Skin Skin Exam: Normal Color Assessment and Plan - Assessment and Plan (Free Text) Assessment: 53 yo male with a history of uncontrolled T2DM (s/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 Patient's blood cultures are positive for Staph aureus, currently being treated for bacteremia. Plan: Staph Aureus Bacteremia: - Blood Cx positive for Staph aureus - Rpt BCx negative - likely source spinal abscess - ancef 2000mg IV q8h (07/25), as per ID - 6-8 week course antibiotic treatment, as per ID - Tmax 100.8 07/25 - Tylenol 650 mg PO Q6H PRN - Procal 14.74 - UA 07/21: many magda, 340 WBC, trace LE, negative nitrate - UA 07/23: negative LE, negative nitrates - Urine Cx: no growth - Echo: LV normal size and EF. LA mildly dilated. Mild TR. - Cardio consulted, Dr. Ge - consider KASH if BCx+ in future - ID consulted - Mangia L Maxillofacial Ulcer - CT 07/25: soft tissue swelling, no osteomyelitis or drainable fluid - ancef 2000mg IV q8h (07/25), as per ID - mupirocin 2g top BID - 6-8 week course antibiotic treatment, as per ID - wound care consulted - Pt following up with plastic surgeon at [facility] sep 04 - ID consulted - Mangia Spinal Abscess - MRI L-spine: suspicious for discitis osteomyelitis involving L4-5 intervetebral disc w/ anterior epidural abscess, R iliopsoas fluid collection 1.5x1.9cm - pt reports 3 month history, with radiation and urinary retention - ancef 2000mg IV q8h (07/25) - percocet 325/5mg PO q8h PRN - IR consulted, Dr. Fragoso - psoas collection to small to drain, consult neuro surgery for spinal abscess - NeuroSx consulted, Dr. Olivia - no intervention at this time HTN - patient persistently hypertensive - ASA 81 mg PO daily - Enalapril 30 mg PO daily - Metoprolol 50 mg PO daily CAP - CXR: no acute findings - CT A/P: LLL consolidation vs atelectasis - ancef 2000mg IV q8h (07/25) AIDA - BUN/Cr 17/0.8, resolved - I/O: 1000/2350 - Replete electrolytes PRN Hyponatremia - Na 129 - likely dilutional - urine osmolality 454, wnl - serum osmolality 297, wnl - urine 24hr sodium 203 - water restriction: 1000ml/day Urinary Retention - CT A/P: bladder wall thickening (cystitis), b/l renal parenchymal high density may be underlying metabolic disorder - sagastume catheter - flomax 0.4mg PO BID - finasteride 5mg PO daily - Urology consulted: Titi Kam - maintain sagastume Unresponsiveness - resolved, pt AAOx3 - Code stroke - EEG: nonspecific abnormalities, no seizures noted - CT head: no acute findings - CTA head and neck: no significant stenoses or abnormalities - PRL wnl (12.9) - Gabapentin 100 mg PO TID - Neurology consulted: Manda - no need for anticonvulsant at this time - PT/OT/ST DM type 2 - A1c 8.9 - medium dose Novolin R ISS - lantus 25u SC daily - Hypoglycemia protocol - Accuchecks ACHS Ppx: DVT: Heparin 5000 units Q12H GI: Protonix 40 mg PO daily Dispo: pt without insurance and undocumented citizen, pending medicaid acceptance Pt seen with and case discussed with Dr. Curiel <Mila Curiel - Last Filed: 08/03/18 17:05> Objective - Vital Signs/Intake and Output Vital Signs (last 24 hours): Temp Pulse Resp BP Pulse Ox 98.6 F 83 20 155/71 H 97 08/03/18 15:02 08/03/18 15:02 08/03/18 15:02 08/03/18 15:02 08/03/18 15:02 Intake and Output: 08/03/18 08/03/18 06:59 18:59 Intake Total 640 450 Output Total 1700 800 Balance -1060 -350 - Medications Medications: Current Medications Acetaminophen (Tylenol 325mg Tab) 650 mg PO Q6 PRN PRN Reason: Fever >100.4 or Pain Last Admin: 08/02/18 12:41 Dose: 650 mg Aspirin (Ecotrin) 81 mg PO DAILY [facility] Last Admin: 08/03/18 09:49 Dose: 81 mg Dextrose (Dextrose 50% Inj) 0 ml IV STAT PRN; Protocol PRN Reason: Hypoglycemia Protocol Last Admin: 07/22/18 11:53 Dose: 50 ml Dextrose (Glutose 15) 0 gm PO ONCE PRN; Protocol PRN Reason: Hypoglycemia Protocol Docusate Sodium (Colace) 100 mg PO BID [facility] Last Admin: 08/03/18 09:48 Dose: 100 mg Enalapril Maleate (Vasotec) 30 mg PO DAILY [facility] Last Admin: 08/03/18 09:48 Dose: 30 mg Finasteride (Proscar) 5 mg PO DAILY [facility] Last Admin: 08/03/18 09:48 Dose: 5 mg Gabapentin (Neurontin) 100 mg PO TID [facility] Last Admin: 08/03/18 14:15 Dose: 100 mg Glucagon (Glucagen Diagnostic Kit) 0 mg IM STAT PRN; Protocol PRN Reason: Hypoglycemia Protocol Cefazolin Sodium 2,000 mg/ (Sodium Chloride) 50 mls @ 100 mls/hr IVPB Q8H [facility]; Protocol Last Admin: 08/03/18 11:15 Dose: 100 mls/hr Insulin Glargine (Lantus) 25 unit SC DAILY [facility] Last Admin: 08/03/18 09:49 Dose: 25 unit Insulin Human Regular (Novolin R) 0 unit SC ACHS [facility]; Protocol Last Admin: 08/03/18 12:15 Dose: 6 units Metoprolol Succinate (Toprol Xl) 50 mg PO DAILY [facility] Last Admin: 08/03/18 09:48 Dose: 50 mg Mupirocin (Bactroban Ointment) 0 gm TOP BID [facility] Last Admin: 08/03/18 10:00 Dose: 1 applic Oxycodone/Acetaminophen (Percocet 5/325 Mg Tab) 1 tab PO Q8H PRN PRN Reason: Pain, moderate (4-7) Stop: 08/04/18 08:01 Last Admin: 08/03/18 09:53 Dose: 1 tab Pantoprazole Sodium (Protonix Ec Tab) 40 mg PO DAILY [facility] Last Admin: 08/03/18 09:48 Dose: 40 mg Tamsulosin HCl (Flomax) 0.4 mg PO BID [facility] Last Admin: 08/03/18 09:49 Dose: 0.4 mg - Labs Labs: 08/03/18 07:07 08/03/18 07:07 PT 15.6 SECONDS (9.7-12.2) H 07/21/18 20:28 INR 1.4 07/21/18 20:28 APTT 34 SECONDS (21-34) 07/21/18 20:28 Attending/Attestation - Attestation I have personally seen and examined this patient.: Yes I have fully participated in the care of the patient.: Yes I have reviewed all pertinent clinical information, including history, physical exam and plan: Yes Notes (Text): Seen and examined continue antibiotics Ancef Discussed with DR Young interventional radiologist. Epidural abscess is too small to drain We will follow with Derek Garcia spoke to [facility]. Patient is undocumented. Difficult to arrange for antibiotics treatment
[2018-08-02 07:26] LABS: BASO # 0.1 K/uL (0.0-0.2); BASO % 0.8 % (0.0-2.0); EOS # 0.3 K/uL (0.0-0.7); EOS % 3.2 % (0.0-4.0); HEMOGLOBIN 8.1 g/dL (12.0-18.0); LYMPH # 1.7 K/uL (1.0-4.3); LYMPH % 16.6 % (20.0-40.0); MEAN CELL VOLUME 86.6 fL (80.0-94.0); MEAN CORPUSCULAR HEMOGLOBIN 29.3 pg (27.0-31.0); MEAN CORPUSCULAR HGB CONC 33.9 g/dL (33.0-37.0); MONO # 0.7 K/uL (0.0-0.8); MONO % 6.6 % (0.0-10.0); NEUT # 7.4 K/uL (1.8-7.0); NEUT % 72.8 % (50.0-75.0); RBC 2.76 Mil/uL (4.40-5.90); RED CELL DISTRIBUTION WIDTH 13.5 % (11.5-14.5); WHITE BLOOD COUNT 10.2 K/uL (4.8-10.8)
[2018-08-02 07:38] LABS: IRON 19 ug/dL (49-181)
[2018-08-02 07:45] LABS: ALB/GLOB RATIO 0.7 (1.0-2.1); ALBUMIN 2.7 g/dL (3.5-5.0); ALT/SGPT 15 U/L (21-72); AST/SGOT 26 U/L (17-59); BLOOD UREA NITROGEN 17 mg/dL (9-20); CALCIUM 8.3 mg/dl (8.6-10.4); GFR NON-AFRICAN AMERICAN > 60
[2018-08-02 07:48] LABS: % IRON SATURATION 8 (20-55)
[2018-08-02] MEDS: (Novolin R) Insulin Human Regular 100 units/ml vial SC SCH ×4 (08:15→21:36)
[2018-08-02] MEDS: Oxycodone/Acetaminophen 5/325 mg Tab PO PRN ×2 (08:48→17:42)
[2018-08-02] MEDS: (Lantus) Insulin Glargine, Recombinant SC SCH (09:56)
[2018-08-02] MEDS: Metoprolol Succinate 50 mg XL Tab PO SCH (09:56)
[2018-08-02] MEDS: Pantoprazole 40 mg EC Tab PO SCH (09:58)
[2018-08-03] MEDS: Oxycodone/Acetaminophen 5/325 mg Tab PO PRN ×2 (02:01→09:53)
--- NOTE | 2018-08-03 05:20 | CP.PCM.PN ---
<Mala Carter Y - Last Filed: 08/03/18 05:17> Subjective - Date & Time of Evaluation Date of Evaluation: 08/03/18 Time of Evaluation: 06:25 - Subjective Subjective: PGY-1 Medicine Progress Note for Dr. Curiel Patient was seen and examined today at bedside in no acute distress. Nurse reports no overnight events. Patient has no new complaints. Notes improvement of his back pain; right sided pain unchanged. Denies CP, SOB, n/v/c/d. Objective - Vital Signs/Intake and Output Vital Signs (last 24 hours): Temp Pulse Resp BP Pulse Ox 97.5 F L 85 20 137/70 96 08/03/18 00:00 08/03/18 00:00 08/03/18 00:00 08/03/18 00:00 08/03/18 00:00 Intake and Output: 08/02/18 08/03/18 18:59 06:59 Intake Total 265 350 Output Total 500 1200 Balance -235 -850 - Medications Medications: Current Medications Acetaminophen (Tylenol 325mg Tab) 650 mg PO Q6 PRN PRN Reason: Fever >100.4 or Pain Last Admin: 08/02/18 12:41 Dose: 650 mg Aspirin (Ecotrin) 81 mg PO DAILY [facility] Last Admin: 08/02/18 09:58 Dose: 81 mg Dextrose (Dextrose 50% Inj) 0 ml IV STAT PRN; Protocol PRN Reason: Hypoglycemia Protocol Last Admin: 07/22/18 11:53 Dose: 50 ml Dextrose (Glutose 15) 0 gm PO ONCE PRN; Protocol PRN Reason: Hypoglycemia Protocol Docusate Sodium (Colace) 100 mg PO BID [facility] Last Admin: 08/02/18 17:40 Dose: 100 mg Enalapril Maleate (Vasotec) 30 mg PO DAILY [facility] Last Admin: 08/02/18 09:57 Dose: 30 mg Finasteride (Proscar) 5 mg PO DAILY [facility] Last Admin: 08/02/18 09:57 Dose: 5 mg Gabapentin (Neurontin) 100 mg PO TID [facility] Last Admin: 08/02/18 17:40 Dose: 100 mg Glucagon (Glucagen Diagnostic Kit) 0 mg IM STAT PRN; Protocol PRN Reason: Hypoglycemia Protocol Cefazolin Sodium 2,000 mg/ (Sodium Chloride) 50 mls @ 100 mls/hr IVPB Q8H [facility]; Protocol Last Admin: 08/03/18 02:00 Dose: 100 mls/hr Insulin Glargine (Lantus) 25 unit SC DAILY [facility] Insulin Human Regular (Novolin R) 0 unit SC ACHS [facility]; Protocol Last Admin: 08/02/18 21:36 Dose: 3 units Metoprolol Succinate (Toprol Xl) 50 mg PO DAILY [facility] Last Admin: 08/02/18 09:56 Dose: 50 mg Mupirocin (Bactroban Ointment) 0 gm TOP BID [facility] Last Admin: 08/02/18 20:22 Dose: 1 applic Oxycodone/Acetaminophen (Percocet 5/325 Mg Tab) 1 tab PO Q8H PRN PRN Reason: Pain, moderate (4-7) Stop: 08/04/18 08:01 Last Admin: 08/03/18 02:01 Dose: 1 tab Pantoprazole Sodium (Protonix Ec Tab) 40 mg PO DAILY [facility] Last Admin: 08/02/18 09:58 Dose: 40 mg Tamsulosin HCl (Flomax) 0.4 mg PO BID [facility] Last Admin: 08/02/18 20:21 Dose: 0.4 mg - Labs Labs: 08/02/18 07:17 08/02/18 07:17 PT 15.6 SECONDS (9.7-12.2) H 07/21/18 20:28 INR 1.4 07/21/18 20:28 APTT 34 SECONDS (21-34) 07/21/18 20:28 - Constitutional Appears: No Acute Distress, Chronically Ill - Head Exam Additional comments: ulcerative lesion on the L nare and L malar region, erythema with slight granulation tissue. no drainage noted. cartilage visible. - Eye Exam Eye Exam: EOMI, Normal appearance, PERRL - ENT Exam ENT Exam: Mucous Membranes Moist Additional comments: ulcerative lesion on the L nare and L malar region, erythema with slight granulation tissue. no drainage noted. cartilage visible. - Respiratory Exam Respiratory Exam: Clear to Ausculation Bilateral, NORMAL BREATHING PATTERN. absent: Rales, Rhonchi, Wheezes - Cardiovascular Exam Cardiovascular Exam: REGULAR RHYTHM, +S1, +S2. absent: Gallop, Rubs, Murmur - GI/Abdominal Exam GI & Abdominal Exam: Soft, Tenderness, Normal Bowel Sounds Additional comments: TTP LLQ - Extremities Exam Additional comments: b/l BKA - Neurological Exam Neurological Exam: Alert, Awake, Oriented x3 - Skin Skin Exam: Normal Color Assessment and Plan - Assessment and Plan (Free Text) Assessment: 53 yo male with a history of uncontrolled T2DM (s/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 Patient's blood cultures are positive for Staph aureus, currently being treated for bacteremia. Plan: Staph Aureus Bacteremia: - Blood Cx positive for Staph aureus - Rpt BCx negative - likely source spinal abscess - ancef 2000mg IV q8h (07/25), as per ID - 6-8 week course antibiotic treatment, as per ID - Tmax 100.8 07/25 - Tylenol 650 mg PO Q6H PRN - Procal 14.74 - UA 07/21: many magda, 340 WBC, trace LE, negative nitrate - UA 07/23: negative LE, negative nitrates - Urine Cx: no growth - Echo: LV normal size and EF. LA mildly dilated. Mild TR. - Cardio consulted, Dr. 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 Fragoso - psoas collection to small to drain, consult neuro surgery for spinal abscess - NeuroSx consulted, Dr. Olivia - no intervention at this time HTN - patient persistently hypertensive - ASA 81 mg PO daily - Enalapril 30 mg PO daily - Metoprolol 50 mg PO daily CAP - CXR: no acute findings - CT A/P: LLL consolidation vs atelectasis - ancef 2000mg IV q8h (07/25) AIDA - BUN/Cr 17/0.8, resolved - I/O: 1000/2350 - Replete electrolytes PRN Hyponatremia - Na 129 - likely dilutional - urine osmolality 454, wnl - serum osmolality 297, wnl - urine 24hr sodium 203 - water restriction: 1000ml/day Urinary Retention - CT A/P: bladder wall thickening (cystitis), b/l renal parenchymal high density may be underlying metabolic disorder - sagastume catheter - flomax 0.4mg PO BID - finasteride 5mg PO daily - Urology consulted: Titi Kam - maintain sagastume Unresponsiveness - resolved, pt AAOx3 - Code stroke - EEG: nonspecific abnormalities, no seizures noted - CT head: no acute findings - CTA head and neck: no significant stenoses or abnormalities - PRL wnl (12.9) - Gabapentin 100 mg PO TID - Neurology consulted: Manda - no need for anticonvulsant at this time - PT/OT/ST DM type 2 - A1c 8.9 - medium dose Novolin R ISS - lantus 25u SC daily - Hypoglycemia protocol - Accuchecks ACHS Ppx: DVT: Heparin 5000 units Q12H GI: Protonix 40 mg PO daily Dispo: pt without insurance and undocumented citizen, pending medicaid acceptance Mala Carter PGY-1 <Mila Curiel - Last Filed: 08/03/18 15:26> Objective - Vital Signs/Intake and Output Vital Signs (last 24 hours): Temp Pulse Resp BP Pulse Ox 98.0 F 85 20 156/76 H 96 08/03/18 08:24 08/03/18 08:24 08/03/18 08:24 08/03/18 09:48 08/03/18 08:24 Intake and Output: 08/03/18 08/03/18 06:59 18:59 Intake Total 640 Output Total 1700 Balance -1060 - Medications Medications: Current Medications Acetaminophen (Tylenol 325mg Tab) 650 mg PO Q6 PRN PRN Reason: Fever >100.4 or Pain Last Admin: 08/02/18 12:41 Dose: 650 mg Aspirin (Ecotrin) 81 mg PO DAILY [facility] Last Admin: 08/03/18 09:49 Dose: 81 mg Dextrose (Dextrose 50% Inj) 0 ml IV STAT PRN; Protocol PRN Reason: Hypoglycemia Protocol Last Admin: 07/22/18 11:53 Dose: 50 ml Dextrose (Glutose 15) 0 gm PO ONCE PRN; Protocol PRN Reason: Hypoglycemia Protocol Docusate Sodium (Colace) 100 mg PO BID [facility] Last Admin: 08/03/18 09:48 Dose: 100 mg Enalapril Maleate (Vasotec) 30 mg PO DAILY [facility] Last Admin: 08/03/18 09:48 Dose: 30 mg Finasteride (Proscar) 5 mg PO DAILY [facility] Last Admin: 08/03/18 09:48 Dose: 5 mg Gabapentin (Neurontin) 100 mg PO TID [facility] Last Admin: 08/03/18 14:15 Dose: 100 mg Glucagon (Glucagen Diagnostic Kit) 0 mg IM STAT PRN; Protocol PRN Reason: Hypoglycemia Protocol Cefazolin Sodium 2,000 mg/ (Sodium Chloride) 50 mls @ 100 mls/hr IVPB Q8H [facility]; Protocol Last Admin: 08/03/18 11:15 Dose: 100 mls/hr Insulin Glargine (Lantus) 25 unit SC DAILY [facility] Last Admin: 08/03/18 09:49 Dose: 25 unit Insulin Human Regular (Novolin R) 0 unit SC [facility]; Protocol Last Admin: 08/03/18 12:15 Dose: 6 units Metoprolol Succinate (Toprol Xl) 50 mg PO DAILY [facility] Last Admin: 08/03/18 09:48 Dose: 50 mg Mupirocin (Bactroban Ointment) 0 gm TOP BID [facility] Last Admin: 08/03/18 10:00 Dose: 1 applic Oxycodone/Acetaminophen (Percocet 5/325 Mg Tab) 1 tab PO Q8H PRN PRN Reason: Pain, moderate (4-7) Stop: 08/04/18 08:01 Last Admin: 08/03/18 09:53 Dose: 1 tab Pantoprazole Sodium (Protonix Ec Tab) 40 mg PO DAILY [facility] Last Admin: 08/03/18 09:48 Dose: 40 mg Tamsulosin HCl (Flomax) 0.4 mg PO BID [facility] Last Admin: 08/03/18 09:49 Dose: 0.4 mg - Labs Labs: 08/03/18 07:07 08/03/18 07:07 PT 15.6 SECONDS (9.7-12.2) H 07/21/18 20:28 INR 1.4 07/21/18 20:28 APTT 34 SECONDS (21-34) 07/21/18 20:28 Attending/Attestation - Attestation I have personally seen and examined this patient.: Yes I have fully participated in the care of the patient.: Yes I have reviewed all pertinent clinical information, including history, physical exam and plan: Yes Notes (Text): Patient is complaining of lower back pain No fever d/w IR Dr Young yesterday.Epidural Abscess is small to drain we will continue antibiotics.follow up with Dr Garcia d/w CW yesterday patient is undocumented. Its not possible to get out pt antibiotics Infusion. urinary retension has a faley cath I agree with the documentation of the resident
[2018-08-03 07:23] LABS: BASO # 0.1 K/uL (0.0-0.2); BASO % 0.7 % (0.0-2.0); EOS # 0.3 K/uL (0.0-0.7); EOS % 2.4 % (0.0-4.0); HEMOGLOBIN 8.2 g/dL (12.0-18.0); LYMPH # 1.4 K/uL (1.0-4.3); MEAN CELL VOLUME 87.5 fL (80.0-94.0); MEAN CORPUSCULAR HEMOGLOBIN 29.6 pg (27.0-31.0); MEAN CORPUSCULAR HGB CONC 33.8 g/dL (33.0-37.0); MEAN PLATELET VOLUME 8.4 fL (7.2-11.7); MONO # 0.6 K/uL (0.0-0.8); NEUT # 8.8 K/uL (1.8-7.0); NEUT % 78.9 % (50.0-75.0); RBC 2.77 Mil/uL (4.40-5.90); RED CELL DISTRIBUTION WIDTH 13.5 % (11.5-14.5); WHITE BLOOD COUNT 11.1 K/uL (4.8-10.8)
[2018-08-03 07:54] LABS: ALB/GLOB RATIO 0.7 (1.0-2.1); ALBUMIN 2.8 g/dL (3.5-5.0); ALT/SGPT 16 U/L (21-72); AST/SGOT 26 U/L (17-59); BLOOD UREA NITROGEN 16 mg/dL (9-20); CALCIUM 8.5 mg/dl (8.6-10.4); GFR NON-AFRICAN AMERICAN > 60
[2018-08-03] MEDS: (Novolin R) Insulin Human Regular 100 units/ml vial SC SCH ×4 (08:00→22:10)
[2018-08-03] MEDS: Metoprolol Succinate 50 mg XL Tab PO SCH (09:48)
[2018-08-03] MEDS: Pantoprazole 40 mg EC Tab PO SCH (09:48)
[2018-08-03] MEDS: (Lantus) Insulin Glargine, Recombinant SC SCH (09:49)
--- NOTE | 2018-08-04 01:38 | CP.PCM.PN ---
<Mala Carter Y - Last Filed: 08/04/18 01:33> Subjective - Date & Time of Evaluation Date of Evaluation: 08/04/18 Time of Evaluation: 06:40 - Subjective Subjective: PGY-1 Medicine Progress Note for Dr. Curiel Patient was seen and examined today at bedside in no acute distress. Nurse reports no overnight events. Patient has no new complaints. Notes improvement of his back pain; right sided pain unchanged. Denies CP, SOB, n/v/c/d. Objective - Vital Signs/Intake and Output Vital Signs (last 24 hours): Temp Pulse Resp BP Pulse Ox 98.6 F 83 20 155/71 H 97 08/03/18 15:02 08/03/18 15:02 08/03/18 15:02 08/03/18 15:02 08/03/18 15:02 Intake and Output: 08/03/18 08/04/18 18:59 06:59 Intake Total 450 450 Output Total 800 500 Balance -350 -50 - Medications Medications: Current Medications Acetaminophen (Tylenol 325mg Tab) 650 mg PO Q6 PRN PRN Reason: Fever >100.4 or Pain Last Admin: 08/02/18 12:41 Dose: 650 mg Aspirin (Ecotrin) 81 mg PO DAILY [facility] Last Admin: 08/03/18 09:49 Dose: 81 mg Dextrose (Dextrose 50% Inj) 0 ml IV STAT PRN; Protocol PRN Reason: Hypoglycemia Protocol Last Admin: 07/22/18 11:53 Dose: 50 ml Dextrose (Glutose 15) 0 gm PO ONCE PRN; Protocol PRN Reason: Hypoglycemia Protocol Docusate Sodium (Colace) 100 mg PO BID [facility] Last Admin: 08/03/18 17:30 Dose: 100 mg Enalapril Maleate (Vasotec) 30 mg PO DAILY [facility] Last Admin: 08/03/18 09:48 Dose: 30 mg Finasteride (Proscar) 5 mg PO DAILY [facility] Last Admin: 08/03/18 09:48 Dose: 5 mg Gabapentin (Neurontin) 100 mg PO TID [facility] Last Admin: 08/03/18 17:30 Dose: 100 mg Glucagon (Glucagen Diagnostic Kit) 0 mg IM STAT PRN; Protocol PRN Reason: Hypoglycemia Protocol Cefazolin Sodium 2,000 mg/ (Sodium Chloride) 50 mls @ 100 mls/hr IVPB Q8H [facility]; Protocol Last Admin: 08/03/18 19:50 Dose: 100 mls/hr Insulin Glargine (Lantus) 25 unit SC DAILY [facility] Last Admin: 08/03/18 09:49 Dose: 25 unit Insulin Human Regular (Novolin R) 0 unit SC ACHS [facility]; Protocol Last Admin: 08/03/18 22:10 Dose: Not Given Metoprolol Succinate (Toprol Xl) 50 mg PO DAILY [facility] Last Admin: 08/03/18 09:48 Dose: 50 mg Mupirocin (Bactroban Ointment) 0 gm TOP BID [facility] Last Admin: 08/03/18 17:35 Dose: 1 applic Oxycodone/Acetaminophen (Percocet 5/325 Mg Tab) 1 tab PO Q8H PRN PRN Reason: Pain, moderate (4-7) Stop: 08/04/18 08:01 Last Admin: 08/03/18 09:53 Dose: 1 tab Pantoprazole Sodium (Protonix Ec Tab) 40 mg PO DAILY [facility] Last Admin: 08/03/18 09:48 Dose: 40 mg Tamsulosin HCl (Flomax) 0.4 mg PO BID [facility] Last Admin: 08/03/18 17:31 Dose: 0.4 mg - Labs Labs: 08/03/18 07:07 08/03/18 07:07 PT 15.6 SECONDS (9.7-12.2) H 07/21/18 20:28 INR 1.4 07/21/18 20:28 APTT 34 SECONDS (21-34) 07/21/18 20:28 - Constitutional Appears: No Acute Distress, Chronically Ill - Head Exam Additional comments: ulcerative lesion on the L nare and L malar region, erythema with slight granulation tissue. no drainage noted. cartilage visible. - Eye Exam Eye Exam: EOMI, Normal appearance, PERRL - ENT Exam ENT Exam: Mucous Membranes Moist Additional comments: ulcerative lesion on the L nare and L malar region, erythema with slight granulation tissue. no drainage noted. cartilage visible. - Respiratory Exam Respiratory Exam: Clear to Ausculation Bilateral, NORMAL BREATHING PATTERN. absent: Rales, Rhonchi, Wheezes - Cardiovascular Exam Cardiovascular Exam: REGULAR RHYTHM, +S1, +S2. absent: Gallop, Rubs, Murmur - GI/Abdominal Exam GI & Abdominal Exam: Soft, Normal Bowel Sounds. absent: Tenderness - Extremities Exam Additional comments: bilateral BKA - Neurological Exam Neurological Exam: Alert, Awake, Oriented x3 - Skin Skin Exam: Normal Color Assessment and Plan - Assessment and Plan (Free Text) Assessment: 53 yo male with a history of uncontrolled T2DM (s/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 Patient's blood cultures are positive for Staph aureus, currently being treated for bacteremia. Plan: Staph Aureus Bacteremia: - Blood Cx positive for Staph aureus - Rpt BCx negative - likely source spinal abscess - ancef 2000mg IV q8h (07/25), as per ID - 6-8 week course antibiotic treatment, as per ID - Tmax 100.8 07/25 - Tylenol 650 mg PO Q6H PRN - Procal 14.74 - UA 07/21: many magda, 340 WBC, trace LE, negative nitrate - UA 07/23: negative LE, negative nitrates - Urine Cx: no growth - Echo: LV normal size and EF. LA mildly dilated. Mild TR. - Cardio consulted, Dr. 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 Fragoso - psoas collection to small to drain, consult neuro surgery for spinal abscess - NeuroSx consulted, Dr. Olivia - no intervention at this time HTN - patient persistently hypertensive - ASA 81 mg PO daily - Enalapril 30 mg PO daily - Metoprolol 50 mg PO daily CAP - CXR: no acute findings - CT A/P: LLL consolidation vs atelectasis - ancef 2000mg IV q8h (07/25) AIDA - BUN/Cr 17/0.8, resolved - I/O: 1000/2350 - Replete electrolytes PRN Hyponatremia - Na 129 - likely dilutional - urine osmolality 454, wnl - serum osmolality 297, wnl - urine 24hr sodium 203 - water restriction: 1000ml/day Urinary Retention - CT A/P: bladder wall thickening (cystitis), b/l renal parenchymal high density may be underlying metabolic disorder - sagastume catheter - flomax 0.4mg PO BID - finasteride 5mg PO daily - Urology consulted: Titi Kam - maintain sagastume Unresponsiveness - resolved, pt AAOx3 - Code stroke - EEG: nonspecific abnormalities, no seizures noted - CT head: no acute findings - CTA head and neck: no significant stenoses or abnormalities - PRL wnl (12.9) - Gabapentin 100 mg PO TID - Neurology consulted: Manda - no need for anticonvulsant at this time - PT/OT/ST DM type 2 - A1c 8.9 - medium dose Novolin R ISS - lantus 25u SC daily - Hypoglycemia protocol - Accuchecks ACHS Ppx: DVT: Heparin 5000 units Q12H GI: Protonix 40 mg PO daily Dispo: pt without insurance and undocumented citizen, pending medicaid acceptance <Mila Curiel - Last Filed: 08/14/18 10:02> Objective - Vital Signs/Intake and Output Vital Signs (last 24 hours): Temp Pulse Resp BP Pulse Ox 97.6 F 81 20 152/75 H 97 08/14/18 08:39 08/14/18 08:39 08/14/18 08:39 08/14/18 08:39 08/14/18 08:39 Intake and Output: 08/14/18 08/14/18 06:59 18:59 Intake Total 400 Output Total 700 600 Balance -300 -600 - Medications Medications: Current Medications Acetaminophen (Tylenol 325mg Tab) 650 mg PO Q6 PRN PRN Reason: Fever >100.4 or Pain Last Admin: 08/07/18 11:22 Dose: 650 mg Amlodipine Besylate (Norvasc) 10 mg PO DAILY [facility] Last Admin: 08/13/18 09:54 Dose: 10 mg Aspirin (Ecotrin) 81 mg PO DAILY [facility] Last Admin: 08/13/18 09:54 Dose: 81 mg Dextrose (Dextrose 50% Inj) 0 ml IV STAT PRN; Protocol PRN Reason: Hypoglycemia Protocol Last Admin: 07/22/18 11:53 Dose: 50 ml Dextrose (Glutose 15) 0 gm PO ONCE PRN; Protocol PRN Reason: Hypoglycemia Protocol Docusate Sodium (Colace) 100 mg PO BID [facility] Last Admin: 08/13/18 17:52 Dose: 100 mg Enalapril Maleate (Vasotec) 30 mg PO DAILY [facility] Last Admin: 08/13/18 09:54 Dose: 30 mg Finasteride (Proscar) 5 mg PO DAILY [facility] Last Admin: 08/13/18 09:54 Dose: 5 mg Gabapentin (Neurontin) 100 mg PO TID [facility] Last Admin: 08/13/18 17:52 Dose: 100 mg Glucagon (Glucagen Diagnostic Kit) 0 mg IM STAT PRN; Protocol PRN Reason: Hypoglycemia Protocol Heparin Sodium (Porcine) (Heparin) 5,000 units SC Q12 [facility] Last Admin: 08/13/18 21:52 Dose: 5,000 units Cefazolin Sodium 2,000 mg/ (Sodium Chloride) 50 mls @ 100 mls/hr IVPB Q8H [facility]; Protocol Last Admin: 08/14/18 02:24 Dose: 100 mls/hr Insulin Glargine (Lantus) 30 unit SC DAILY [facility] Insulin Human Regular (Novolin R) 0 unit SC ACHS [facility]; Protocol Last Admin: 08/14/18 07:39 Dose: 2 units Lactobacillus Acidophilus (Bacid Acidophilus) 1 cap PO BID [facility] Last Admin: 08/13/18 17:52 Dose: 1 cap Lidocaine (Lidoderm) 1 ea TD DAILY [facility] Last Admin: 08/13/18 09:51 Dose: 1 ea Metoprolol Succinate (Toprol Xl) 50 mg PO DAILY [facility] Last Admin: 08/13/18 09:54 Dose: 50 mg Mupirocin (Bactroban Ointment) 0 gm TOP BID [facility] Last Admin: 08/13/18 17:55 Dose: 1 applic Naproxen (Anaprox Ds) 550 mg PO Q12H PRN PRN Reason: Pain, moderate (4-7) Last Admin: 08/13/18 17:53 Dose: 550 mg Pantoprazole Sodium (Protonix Ec Tab) 40 mg PO DAILY [facility] Last Admin: 08/13/18 09:54 Dose: 40 mg Tamsulosin HCl (Flomax) 0.4 mg PO BID [facility] Last Admin: 08/13/18 17:52 Dose: 0.4 mg - Labs Labs: 08/14/18 06:17 08/14/18 06:17 PT 15.6 SECONDS (9.7-12.2) H 07/21/18 20:28 INR 1.4 07/21/18 20:28 APTT 34 SECONDS (21-34) 07/21/18 20:28 Attending/Attestation - Attestation I have personally seen and examined this patient.: Yes I have fully participated in the care of the patient.: Yes I have reviewed all pertinent clinical information, including history, physical exam and plan: Yes Notes (Text): continue antibiotics Unable to arrange for out pt infusion. Patient is undocumented,lives with his ,bilateral leg amputee with no family support to bring for out pt infusion
[2018-08-04] MEDS: Oxycodone/Acetaminophen 5/325 mg Tab PO PRN (02:02)
[2018-08-04 07:03] LABS: BASO # 0.1 K/uL (0.0-0.2); BASO % 1.1 % (0.0-2.0); EOS # 0.3 K/uL (0.0-0.7); EOS % 2.9 % (0.0-4.0); HEMOGLOBIN 8.2 g/dL (12.0-18.0); LYMPH # 1.9 K/uL (1.0-4.3); LYMPH % 16.9 % (20.0-40.0); MEAN CELL VOLUME 87.5 fL (80.0-94.0); MEAN CORPUSCULAR HEMOGLOBIN 29.5 pg (27.0-31.0); MEAN CORPUSCULAR HGB CONC 33.7 g/dL (33.0-37.0); MEAN PLATELET VOLUME 7.9 fL (7.2-11.7); MONO # 0.6 K/uL (0.0-0.8); MONO % 5.5 % (0.0-10.0); NEUT # 8.2 K/uL (1.8-7.0); NEUT % 73.6 % (50.0-75.0); RBC 2.78 Mil/uL (4.40-5.90); RED CELL DISTRIBUTION WIDTH 13.6 % (11.5-14.5); WHITE BLOOD COUNT 11.1 K/uL (4.8-10.8)
[2018-08-04 07:38] LABS: ALB/GLOB RATIO 0.7 (1.0-2.1); ALBUMIN 2.9 g/dL (3.5-5.0); ALT/SGPT 13 U/L (21-72); AST/SGOT 17 U/L (17-59); BLOOD UREA NITROGEN 17 mg/dL (9-20); CALCIUM 8.8 mg/dl (8.6-10.4); GFR NON-AFRICAN AMERICAN > 60
[2018-08-04] MEDS: (Novolin R) Insulin Human Regular 100 units/ml vial SC SCH ×4 (08:00→21:54)
[2018-08-04] MEDS: Metoprolol Succinate 50 mg XL Tab PO SCH (09:00)
[2018-08-04] MEDS: Pantoprazole 40 mg EC Tab PO SCH (09:00)
[2018-08-04] MEDS: (Lantus) Insulin Glargine, Recombinant SC SCH (09:01)
[2018-08-05] MEDS ORDERED: Oxycodone/Acetaminophen 5/325 mg Tab PO ONE (02:46)
[2018-08-05] MEDS: (Novolin R) Insulin Human Regular 100 units/ml vial SC SCH ×4 (08:35→22:21)
[2018-08-05 08:55] LABS: BASO # 0.1 K/uL (0.0-0.2); BASO % 0.7 % (0.0-2.0); EOS # 0.3 K/uL (0.0-0.7); EOS % 2.7 % (0.0-4.0); LYMPH # 1.7 K/uL (1.0-4.3); LYMPH % 13.8 % (20.0-40.0); MEAN CELL VOLUME 86.5 fL (80.0-94.0); MEAN CORPUSCULAR HEMOGLOBIN 28.7 pg (27.0-31.0); MEAN CORPUSCULAR HGB CONC 33.1 g/dL (33.0-37.0); MEAN PLATELET VOLUME 8.2 fL (7.2-11.7); MONO # 0.7 K/uL (0.0-0.8); MONO % 5.6 % (0.0-10.0); NEUT # 9.6 K/uL (1.8-7.0); NEUT % 77.2 % (50.0-75.0); RBC 2.8 Mil/uL (4.40-5.90); RED CELL DISTRIBUTION WIDTH 13.8 % (11.5-14.5); WHITE BLOOD COUNT 12.5 K/uL (4.8-10.8)
--- NOTE | 2018-08-05 09:19 | CP.PCM.PN ---
<Ronit Rodriguez - Last Filed: 08/05/18 16:07> Subjective - Date & Time of Evaluation Date of Evaluation: 08/05/18 Time of Evaluation: 09:18 - Subjective Subjective: Ronit Rodriguez PGY1 Progress Note for Dr. Garcia Pt was examined this morning. He reports intense pain in the right posterior shoulder x2 days, which he attributes to being lifted off the floor by EMS when found unresponsive prior to admission. Pt says it is non radiating, and denies numbness/tingling. Pt reports continuation of his back pain in the center of his lower back. He denies numbness/tingling in the lower extremities. Objective - Vital Signs/Intake and Output Vital Signs (last 24 hours): Temp Pulse Resp BP Pulse Ox 98.4 F 86 20 158/77 H 98 08/05/18 08:17 08/05/18 08:17 08/05/18 08:17 08/05/18 08:17 08/05/18 08:17 Intake and Output: 08/05/18 08/05/18 06:59 18:59 Intake Total 910 Output Total 1800 Balance -890 - Medications Medications: Current Medications Acetaminophen (Tylenol 325mg Tab) 650 mg PO Q6 PRN PRN Reason: Fever >100.4 or Pain Last Admin: 08/05/18 01:32 Dose: 650 mg Aspirin (Ecotrin) 81 mg PO DAILY [facility] Last Admin: 08/04/18 09:00 Dose: 81 mg Dextrose (Dextrose 50% Inj) 0 ml IV STAT PRN; Protocol PRN Reason: Hypoglycemia Protocol Last Admin: 07/22/18 11:53 Dose: 50 ml Dextrose (Glutose 15) 0 gm PO ONCE PRN; Protocol PRN Reason: Hypoglycemia Protocol Docusate Sodium (Colace) 100 mg PO BID [facility] Last Admin: 08/04/18 17:46 Dose: 100 mg Enalapril Maleate (Vasotec) 30 mg PO DAILY [facility] Last Admin: 08/04/18 09:00 Dose: 30 mg Finasteride (Proscar) 5 mg PO DAILY [facility] Last Admin: 08/04/18 09:00 Dose: 5 mg Gabapentin (Neurontin) 100 mg PO TID [facility] Last Admin: 08/04/18 17:46 Dose: 100 mg Glucagon (Glucagen Diagnostic Kit) 0 mg IM STAT PRN; Protocol PRN Reason: Hypoglycemia Protocol Cefazolin Sodium 2,000 mg/ (Sodium Chloride) 50 mls @ 100 mls/hr IVPB Q8H [facility]; Protocol Last Admin: 08/05/18 02:33 Dose: 100 mls/hr Insulin Glargine (Lantus) 25 unit SC DAILY [facility] Last Admin: 08/04/18 09:01 Dose: 25 unit Insulin Human Regular (Novolin R) 0 unit SC ACHS [facility]; Protocol Last Admin: 08/05/18 08:35 Dose: 3 units Lidocaine (Lidoderm) 1 ea TD DAILY [facility] Metoprolol Succinate (Toprol Xl) 50 mg PO DAILY [facility] Last Admin: 08/04/18 09:00 Dose: 50 mg Morphine Sulfate (Morphine Extended Release Tab) 15 mg PO Q12 [facility] Mupirocin (Bactroban Ointment) 0 gm TOP BID [facility] Last Admin: 08/04/18 17:47 Dose: 1 applic Pantoprazole Sodium (Protonix Ec Tab) 40 mg PO DAILY [facility] Last Admin: 08/04/18 09:00 Dose: 40 mg Tamsulosin HCl (Flomax) 0.4 mg PO BID [facility] Last Admin: 08/04/18 17:46 Dose: 0.4 mg - Labs Labs: 08/05/18 08:38 08/04/18 07:00 PT 15.6 SECONDS (9.7-12.2) H 07/21/18 20:28 INR 1.4 07/21/18 20:28 APTT 34 SECONDS (21-34) 07/21/18 20:28 - Additional Findings Additional findings: - Constitutional Appears: No Acute Distress, Chronically Ill - Head Exam Additional comments: ulcerative lesion on the L nare and L malar region, erythema with slight g ranulation tissue. no drainage noted. cartilage visible. - Eye Exam Eye Exam: EOMI, Normal appearance, PERRL - ENT Exam ENT Exam: Mucous Membranes Moist Additional comments: ulcerative lesion on the L nare and L malar region, erythema with slight granulation tissue. no drainage noted. cartilage visible. - Respiratory Exam Respiratory Exam: Clear to Ausculation Bilateral, NORMAL BREATHING PATTERN. absent: Rales, Rhonchi, Wheezes, Respiratory Distress - Cardiovascular Exam Cardiovascular Exam: REGULAR RHYTHM, +S1, +S2. absent: Gallop, Rubs, Murmur. - GI/Abdominal Exam GI & Abdominal Exam: Soft, Tenderness, Normal Bowel Sounds. absent: Distended, Firm, Tender - Extremities Exam Extremities Exam: absent: Pedal Edema Additional comments: RUE/back: tenderness to palpation of posterior shoulder, hypertonicity of right upper back. ROM intact b/l below knee amputations - Neurological Exam Neurological Exam: Alert, Awake, Oriented x3. absent: Motor Sensory Deficit - Skin Skin Exam: Normal Color Assessment and Plan - Assessment and Plan (Free Text) Assessment: 53 yo male with a history of uncontrolled T2DM (s/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 Patient's blood cultures are positive for Staph aureus, currently being treated for bacteremia. Plan: Staph Aureus Bacteremia: - Blood Cx positive for Staph aureus - Rpt BCx negative - likely source: spinal abscess - ancef 2000mg IV q8h (07/25), as per ID - 6-8 week course antibiotic treatment, as per ID - Tmax 100.8 07/25 - Tylenol 650 mg PO Q6H PRN - Procal 14.74 - UA 07/21: many magda, 340 WBC, trace LE, negative nitrate - UA 07/23: negative LE, negative nitrates - Urine Cx: no growth - Echo: LV normal size and EF. LA mildly dilated. Mild TR. - Cardio consulted, Dr. 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 Fragoso - psoas collection and spinal abscess too small to drain - NeuroSx consulted, Dr. Olivia - no intervention at this time HTN - patient persistently hypertensive - ASA 81 mg PO daily - Enalapril 30 mg PO daily - Metoprolol 50 mg PO daily CAP - CXR: no acute findings - CT A/P: LLL consolidation vs atelectasis - ancef 2000mg IV q8h (07/25) AIDA - BUN/Cr 22/0.8, resolved - I/O: 1360/2400 ml - Replete electrolytes PRN Hyponatremia - Na 133, resolved - likely dilutional - urine osmolality 454, wnl - serum osmolality 297, wnl - urine 24hr sodium 203 - water restriction: 1000ml/day Urinary Retention - CT A/P: bladder wall thickening (cystitis), b/l renal parenchymal high density may be underlying metabolic disorder - I/O: 1360/2400 ml - sagastume catheter - flomax 0.4mg PO BID - finasteride 5mg PO daily - Urology consulted: Titi Kam - maintain sagastume Unresponsiveness - resolved, pt AAOx3 - Code stroke - EEG: nonspecific abnormalities, no seizures noted - CT head: no acute findings - CTA head and neck: no significant stenoses or abnormalities - PRL wnl (12.9) - Gabapentin 100 mg PO TID - Neurology consulted: Manda - no need for anticonvulsant at this time - PT/OT/ST DM type 2 - A1c 8.9 - medium dose Novolin R ISS - lantus 25u SC daily - Hypoglycemia protocol - Accuchecks ACHS Ppx: DVT: Heparin 5000 units Q12H GI: Protonix 40 mg PO daily PT/OT Dispo: pt without insurance and undocumented citizen, pending medicaid acceptance Pt seen with and case discussed with Dr. Garcia <Sherron Garcia V - Last Filed: 08/10/18 20:48> Objective - Vital Signs/Intake and Output Vital Signs (last 24 hours): Temp Pulse Resp BP Pulse Ox 97.0 F L 87 20 165/80 H 95 08/05/18 15:00 08/05/18 15:00 08/05/18 15:00 08/05/18 15:00 08/05/18 15:00 - Medications Medications: Current Medications Acetaminophen (Tylenol 325mg Tab) 650 mg PO Q6 PRN PRN Reason: Fever >100.4 or Pain Last Admin: 08/05/18 01:32 Dose: 650 mg Aspirin (Ecotrin) 81 mg PO DAILY [facility] Last Admin: 08/05/18 10:09 Dose: 81 mg Dextrose (Dextrose 50% Inj) 0 ml IV STAT PRN; Protocol PRN Reason: Hypoglycemia Protocol Last Admin: 07/22/18 11:53 Dose: 50 ml Dextrose (Glutose 15) 0 gm PO ONCE PRN; Protocol PRN Reason: Hypoglycemia Protocol Docusate Sodium (Colace) 100 mg PO BID [facility] Last Admin: 08/05/18 17:41 Dose: 100 mg Enalapril Maleate (Vasotec) 30 mg PO DAILY [facility] Last Admin: 08/05/18 10:09 Dose: 30 mg Finasteride (Proscar) 5 mg PO DAILY [facility] Last Admin: 08/05/18 10:09 Dose: 5 mg Gabapentin (Neurontin) 100 mg PO TID [facility] Last Admin: 08/05/18 17:40 Dose: 100 mg Glucagon (Glucagen Diagnostic Kit) 0 mg IM STAT PRN; Protocol PRN Reason: Hypoglycemia Protocol Cefazolin Sodium 2,000 mg/ (Sodium Chloride) 50 mls @ 100 mls/hr IVPB Q8H [facility]; Protocol Last Admin: 08/05/18 11:27 Dose: 100 mls/hr Insulin Glargine (Lantus) 25 unit SC DAILY [facility] Last Admin: 08/05/18 10:13 Dose: 25 unit Insulin Human Regular (Novolin R) 0 unit SC ACHS [facility]; Protocol Last Admin: 08/05/18 17:40 Dose: 12 units Lidocaine (Lidoderm) 1 ea TD DAILY [facility] Last Admin: 08/05/18 10:17 Dose: 1 ea Metoprolol Succinate (Toprol Xl) 50 mg PO DAILY [facility] Last Admin: 08/05/18 10:09 Dose: 50 mg Mupirocin (Bactroban Ointment) 0 gm TOP BID [facility] Last Admin: 08/05/18 17:44 Dose: 1 applic Naproxen (Anaprox Ds) 550 mg PO Q12H PRN PRN Reason: Pain, moderate (4-7) Last Admin: 08/05/18 16:10 Dose: 550 mg Pantoprazole Sodium (Protonix Ec Tab) 40 mg PO DAILY [facility] Last Admin: 08/05/18 10:09 Dose: 40 mg Tamsulosin HCl (Flomax) 0.4 mg PO BID [facility] Last Admin: 08/05/18 17:41 Dose: 0.4 mg - Labs Labs: 08/05/18 08:38 08/05/18 08:38 PT 15.6 SECONDS (9.7-12.2) H 07/21/18 20:28 INR 1.4 07/21/18 20:28 APTT 34 SECONDS (21-34) 07/21/18 20:28 Attending/Attestation - Attestation I have personally seen and examined this patient.: Yes I have fully participated in the care of the patient.: Yes I have reviewed all pertinent clinical information, including history, physical exam and plan: Yes Notes (Text): This is late computer entry for 08/05/18. Patient seen, examined, and case discussed with neuropsychology medical consultant. Patient seen during rounds in the afternoon. We noted for pain over the right de ltoid. patient on passive ROM able to motion around the shoulder and abduct and adduct and lift over head. I advised patient he would benefit from NSAID to reduce inflammation and that the narcotic pain medication he is on will not reduce inflammation. Physical and occupational therapy was reconsulted since he was recently transferred out from the unit given deconditoning patient will need to continue IV abx for at least 6-8 weeks. No intervention advised by IR nor neurosurgery per review of EMR. d/c narcotic given patient noted to be very lethargic by resident.
[2018-08-05] MEDS ORDERED: Morphine 15 mg SR Tab PO SCH (10:00)
[2018-08-05] MEDS: Pantoprazole 40 mg EC Tab PO SCH (10:09)
[2018-08-05] MEDS: Metoprolol Succinate 50 mg XL Tab PO SCH (10:09)
[2018-08-05] MEDS: (Lantus) Insulin Glargine, Recombinant SC SCH (10:13)
[2018-08-05] MEDS: Lidocaine 5% Patch TD SCH (10:17)
[2018-08-05 10:23] LABS: ALB/GLOB RATIO 0.7 (1.0-2.1); ALBUMIN 2.8 g/dL (3.5-5.0); ALT/SGPT 11 U/L (21-72); AST/SGOT 33 U/L (17-59); BLOOD UREA NITROGEN 22 mg/dL (9-20); CALCIUM 8.6 mg/dl (8.6-10.4); GFR NON-AFRICAN AMERICAN > 60
--- NOTE | 2018-08-05 12:25 | CP.PCM.PN ---
Subjective - Date & Time of Evaluation Date of Evaluation: 08/05/18 Time of Evaluation: 12:15 - Subjective Subjective: Axel Hollis, PGY-[address] Ge Patient seen and evaluated at bedside. No acute events reported overnight. Objective - Vital Signs/Intake and Output Vital Signs (last 24 hours): Temp Pulse Resp BP Pulse Ox 98.4 F 86 20 158/77 H 98 08/05/18 08:17 08/05/18 08:17 08/05/18 08:17 08/05/18 10:09 08/05/18 08:17 Intake and Output: 08/05/18 08/05/18 06:59 18:59 Intake Total 910 Output Total 1800 Balance -890 - Medications Medications: Current Medications Acetaminophen (Tylenol 325mg Tab) 650 mg PO Q6 PRN PRN Reason: Fever >100.4 or Pain Last Admin: 08/05/18 01:32 Dose: 650 mg Aspirin (Ecotrin) 81 mg PO DAILY [facility] Last Admin: 08/05/18 10:09 Dose: 81 mg Dextrose (Dextrose 50% Inj) 0 ml IV STAT PRN; Protocol PRN Reason: Hypoglycemia Protocol Last Admin: 07/22/18 11:53 Dose: 50 ml Dextrose (Glutose 15) 0 gm PO ONCE PRN; Protocol PRN Reason: Hypoglycemia Protocol Docusate Sodium (Colace) 100 mg PO BID [facility] Last Admin: 08/05/18 10:09 Dose: 100 mg Enalapril Maleate (Vasotec) 30 mg PO DAILY [facility] Last Admin: 08/05/18 10:09 Dose: 30 mg Finasteride (Proscar) 5 mg PO DAILY [facility] Last Admin: 08/05/18 10:09 Dose: 5 mg Gabapentin (Neurontin) 100 mg PO TID [facility] Last Admin: 08/05/18 10:09 Dose: 100 mg Glucagon (Glucagen Diagnostic Kit) 0 mg IM STAT PRN; Protocol PRN Reason: Hypoglycemia Protocol Cefazolin Sodium 2,000 mg/ (Sodium Chloride) 50 mls @ 100 mls/hr IVPB Q8H [facility]; Protocol Last Admin: 08/05/18 11:27 Dose: 100 mls/hr Insulin Glargine (Lantus) 25 unit SC DAILY [facility] Last Admin: 08/05/18 10:13 Dose: 25 unit Insulin Human Regular (Novolin R) 0 unit SC ACHS [facility]; Protocol Last Admin: 08/05/18 11:51 Dose: 3 units Lidocaine (Lidoderm) 1 ea TD DAILY [facility] Last Admin: 08/05/18 10:17 Dose: 1 ea Metoprolol Succinate (Toprol Xl) 50 mg PO DAILY [facility] Last Admin: 08/05/18 10:09 Dose: 50 mg Morphine Sulfate (Morphine Extended Release Tab) 15 mg PO Q12 [facility] Last Admin: 08/05/18 10:09 Dose: 15 mg Mupirocin (Bactroban Ointment) 0 gm TOP BID [facility] Last Admin: 08/05/18 10:15 Dose: 1 applic Pantoprazole Sodium (Protonix Ec Tab) 40 mg PO DAILY [facility] Last Admin: 08/05/18 10:09 Dose: 40 mg Tamsulosin HCl (Flomax) 0.4 mg PO BID [facility] Last Admin: 08/05/18 10:09 Dose: 0.4 mg - Labs Labs: 08/05/18 08:38 08/05/18 08:38 PT 15.6 SECONDS (9.7-12.2) H 07/21/18 20:28 INR 1.4 07/21/18 20:28 APTT 34 SECONDS (21-34) 07/21/18 20:28 - Additional Findings Additional findings: - Constitutional Appears: No Acute Distress, Chronically Ill - Head Exam Additional comments: see below - Eye Exam Eye Exam: EOMI, Normal appearance, PERRL - ENT Exam ENT Exam: Mucous Membranes Moist Additional comments: ulcerative lesion on the L nare and L malar region, erythema with slight granulation tissue. no drainage noted. cartilage visible. - Respiratory Exam Respiratory Exam: Clear to Ausculation Bilateral, NORMAL BREATHING PATTERN. absent: Rales, Rhonchi, Wheezes, Respiratory Distress - Cardiovascular Exam Cardiovascular Exam: REGULAR RHYTHM, +S1, +S2. absent: Gallop, Rubs, Murmur. - GI/Abdominal Exam GI & Abdominal Exam: Soft, Tenderness, Normal Bowel Sounds. absent: Distended, Firm, Tender - Extremities Exam Extremities Exam: absent: Pedal Edema Additional comments: RUE/upper back: TTP posterior shoulder, hypertonicity of right upper back. Intact, painful ROM b/l below knee amputations - Neurological Exam Neurological Exam: Alert, Awake, Oriented x3. absent: Motor Sensory Deficit - Skin Skin Exam: Normal Color Assessment and Plan - Assessment and Plan (Free Text) Assessment: Assessment: Mr. Bowling is a Yoruba speaking 53 M with poorly controlled DM2, Staph aureus bacteremia, lumbar spinal abscess and L facial cellulitis resulting in damage to left nostril and cartilage erosion. Plan: Staph Aureus bacteremia - Multiple modes of entry, including lumbar abscess and maxillofacial ulcer in setting of poor diabetes control and ? untreated basal cell carcinoma near L nares - At this time, final report of repeat blood cultures are negative after 5 day. Guidelines suggest to defer KASH to a time at which patient is persistently bacteremic while on antibiotics - Cardiology will sign off at this time. Should any further relevant questions arise, please contact us. Chest Pain, likely chostochondritis vs ACS - Trops neg x2 - Reproducible Chest Pain upon palpation - ASA 81 Patient seen, case discussed with Dr. Ge. Further recommendations per Dr. Ge. Axel Hollis, PGY-1
[2018-08-05] MEDS: Naproxen 550 mg Tab PO PRN (16:10)
[2018-08-05] MEDS: Lactobacillus Acidophilus 500 MU Cap PO SCH (22:57)
[2018-08-06 07:17] LABS: BASO # 0.1 K/uL (0.0-0.2); BASO % 1.2 % (0.0-2.0); EOS # 0.3 K/uL (0.0-0.7); EOS % 3.6 % (0.0-4.0); HEMOGLOBIN 8.2 g/dL (12.0-18.0); LYMPH # 1.7 K/uL (1.0-4.3); LYMPH % 19.4 % (20.0-40.0); MEAN CELL VOLUME 87.1 fL (80.0-94.0); MEAN CORPUSCULAR HEMOGLOBIN 29.8 pg (27.0-31.0); MEAN CORPUSCULAR HGB CONC 34.2 g/dL (33.0-37.0); MEAN PLATELET VOLUME 8.1 fL (7.2-11.7); MONO # 0.6 K/uL (0.0-0.8); MONO % 6.8 % (0.0-10.0); NEUT # 6.1 K/uL (1.8-7.0); RBC 2.75 Mil/uL (4.40-5.90); RED CELL DISTRIBUTION WIDTH 13.5 % (11.5-14.5); WHITE BLOOD COUNT 8.9 K/uL (4.8-10.8)
--- NOTE | 2018-08-06 07:48 | CP.PCM.PN ---
<Ronit Rodriguez - Last Filed: 08/06/18 16:41> Subjective - Date & Time of Evaluation Date of Evaluation: 08/06/18 Time of Evaluation: 07:47 - Subjective Subjective: Ronit Rodriguez PGY1 progress note for Dr. Alston Pt was examined at bedside this morning. He reports improvement of his back and shoulder pain. He has no other complaints this morning. Objective - Vital Signs/Intake and Output Vital Signs (last 24 hours): Temp Pulse Resp BP Pulse Ox 98.4 F 77 20 149/76 98 08/06/18 00:00 08/06/18 00:00 08/06/18 00:00 08/06/18 00:00 08/06/18 00:00 Intake and Output: 08/06/18 08/06/18 06:59 18:59 Intake Total 700 Output Total 1050 Balance -350 - Medications Medications: Current Medications Acetaminophen (Tylenol 325mg Tab) 650 mg PO Q6 PRN PRN Reason: Fever >100.4 or Pain Last Admin: 08/05/18 01:32 Dose: 650 mg Amlodipine Besylate (Norvasc) 5 mg PO DAILY [facility] Aspirin (Ecotrin) 81 mg PO DAILY [facility] Last Admin: 08/05/18 10:09 Dose: 81 mg Dextrose (Dextrose 50% Inj) 0 ml IV STAT PRN; Protocol PRN Reason: Hypoglycemia Protocol Last Admin: 07/22/18 11:53 Dose: 50 ml Dextrose (Glutose 15) 0 gm PO ONCE PRN; Protocol PRN Reason: Hypoglycemia Protocol Docusate Sodium (Colace) 100 mg PO BID [facility] Last Admin: 08/05/18 17:41 Dose: 100 mg Enalapril Maleate (Vasotec) 30 mg PO DAILY [facility] Last Admin: 08/05/18 10:09 Dose: 30 mg Finasteride (Proscar) 5 mg PO DAILY [facility] Last Admin: 08/05/18 10:09 Dose: 5 mg Gabapentin (Neurontin) 100 mg PO TID [facility] Last Admin: 08/05/18 17:40 Dose: 100 mg Glucagon (Glucagen Diagnostic Kit) 0 mg IM STAT PRN; Protocol PRN Reason: Hypoglycemia Protocol Cefazolin Sodium 2,000 mg/ (Sodium Chloride) 50 mls @ 100 mls/hr IVPB Q8H [facility]; Protocol Last Admin: 08/06/18 02:57 Dose: 100 mls/hr Insulin Glargine (Lantus) 25 unit SC DAILY [facility] Last Admin: 08/05/18 10:13 Dose: 25 unit Insulin Human Regular (Novolin R) 0 unit SC ACHS [facility]; Protocol Last Admin: 08/05/18 22:21 Dose: Not Given Lactobacillus Acidophilus (Bacid Acidophilus) 1 cap PO BID [facility] Last Admin: 08/05/18 22:57 Dose: 1 cap Lidocaine (Lidoderm) 1 ea TD DAILY [facility] Last Admin: 08/05/18 10:17 Dose: 1 ea Metoprolol Succinate (Toprol Xl) 50 mg PO DAILY [facility] Last Admin: 08/05/18 10:09 Dose: 50 mg Mupirocin (Bactroban Ointment) 0 gm TOP BID [facility] Last Admin: 08/05/18 17:44 Dose: 1 applic Naproxen (Anaprox Ds) 550 mg PO Q12H PRN PRN Reason: Pain, moderate (4-7) Last Admin: 08/05/18 16:10 Dose: 550 mg Pantoprazole Sodium (Protonix Ec Tab) 40 mg PO DAILY [facility] Last Admin: 08/05/18 10:09 Dose: 40 mg Tamsulosin HCl (Flomax) 0.4 mg PO BID [facility] Last Admin: 08/05/18 17:41 Dose: 0.4 mg - Labs Labs: 08/06/18 07:06 08/05/18 08:38 PT 15.6 SECONDS (9.7-12.2) H 07/21/18 20:28 INR 1.4 07/21/18 20:28 APTT 34 SECONDS (21-34) 07/21/18 20:28 - Additional Findings Additional findings: - Constitutional Appears: No Acute Distress, Chronically Ill - Head Exam Additional comments: ulcerative lesion on the L nare and L malar region, erythema with slight gran ulation tissue. no drainage noted. cartilage visible. - Eye Exam Eye Exam: EOMI, Normal appearance, PERRL - ENT Exam ENT Exam: Mucous Membranes Moist Additional comments: ulcerative lesion on the L nare and L malar region, erythema with slight granulation tissue. no drainage noted. cartilage visible. - Respiratory Exam Respiratory Exam: Clear to Ausculation Bilateral, NORMAL BREATHING PATTERN. absent: Rales, Rhonchi, Wheezes, Respiratory Distress - Cardiovascular Exam Cardiovascular Exam: REGULAR RHYTHM, +S1, +S2. absent: Gallop, Rubs, Murmur. - GI/Abdominal Exam GI & Abdominal Exam: Soft, Tenderness, Normal Bowel Sounds. absent: Distended, Firm, Tender - Extremities Exam Extremities Exam: absent: Pedal Edema Additional comments: RUE/back: tenderness to palpation of posterior shoulder, hypertonicity of right upper back. ROM intact b/l below knee amputations - Neurological Exam Neurological Exam: Alert, Awake, Oriented x3. absent: Motor Sensory Deficit - Skin Skin Exam: Normal Color Assessment and Plan - Assessment and Plan (Free Text) Assessment: 53 yo male with a history of uncontrolled T2DM (s/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 Patient's blood cultures are positive for Staph aureus, currently being treated for bacteremia. Plan: Staph Aureus Bacteremia: - Blood Cx positive for Staph aureus - Rpt BCx negative - likely source: spinal abscess - ancef 2000mg IV q8h (07/25), as per ID - 6-8 week course antibiotic treatment, as per ID - Tmax 100.8 07/25 - Tylenol 650 mg PO Q6H PRN - Procal 14.74 - UA 07/21: many magda, 340 WBC, trace LE, negative nitrate - UA 07/23: negative LE, negative nitrates - Urine Cx: no growth - Echo: LV normal size and EF. LA mildly dilated. Mild TR. - Cardio consulted, Dr. 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 Fragoso - psoas collection and spinal abscess too small to drain - NeuroSx consulted, Dr. Olivia - no intervention at this time HTN - patient persistently hypertensive - ASA 81 mg PO daily - Enalapril 30 mg PO daily - Metoprolol 50 mg PO daily - norvasc 5mg PO daily CAP - CXR 08/06: - CT A/P: LLL consolidation vs atelectasis - ancef 2000mg IV q8h (07/25) AIDA - BUN/Cr 22/0.8, resolved - I/O: 700/1050 ml - Replete electrolytes PRN Urinary Retention - CT A/P: bladder wall thickening (cystitis), b/l renal parenchymal high density may be underlying metabolic disorder - I/O: 700/1050 ml - sagastume catheter - flomax 0.4mg PO BID - finasteride 5mg PO daily - Urology consulted: Titi Kam - maintain sagastume Unresponsiveness - resolved, pt AAOx3 - Code stroke - EEG: nonspecific abnormalities, no seizures noted - CT head: no acute findings - CTA head and neck: no significant stenoses or abnormalities - PRL wnl (12.9) - Gabapentin 100 mg PO TID - Neurology consulted: Manda - no need for anticonvulsant at this time DM type 2 - A1c 8.9 - medium dose Novolin R ISS - lantus 25u SC daily - Hypoglycemia protocol - Accuchecks ACHS Ppx: DVT: Heparin 5000 units Q12H GI: Protonix 40 mg PO daily PT/OT Dispo: pt without insurance and undocumented citizen, pending medicaid acceptance Pt seen with and case discussed with Dr. Alston <Galen Alston - Last Filed: 08/06/18 18:02> Objective - Vital Signs/Intake and Output Vital Signs (last 24 hours): Temp Pulse Resp BP Pulse Ox 98.0 F 84 20 147/73 99 08/06/18 17:18 08/06/18 17:18 08/06/18 17:18 08/06/18 17:18 08/06/18 17:18 Intake and Output: 08/06/18 08/06/18 06:59 18:59 Intake Total 700 Output Total 1050 Balance -350 - Medications Medications: Current Medications Acetaminophen (Tylenol 325mg Tab) 650 mg PO Q6 PRN PRN Reason: Fever >100.4 or Pain Last Admin: 08/06/18 10:04 Dose: 650 mg Amlodipine Besylate (Norvasc) 10 mg PO DAILY [facility] Last Admin: 08/06/18 10:12 Dose: 10 mg Aspirin (Ecotrin) 81 mg PO DAILY [facility] Last Admin: 08/06/18 11:01 Dose: 81 mg Dextrose (Dextrose 50% Inj) 0 ml IV STAT PRN; Protocol PRN Reason: Hypoglycemia Protocol Last Admin: 07/22/18 11:53 Dose: 50 ml Dextrose (Glutose 15) 0 gm PO ONCE PRN; Protocol PRN Reason: Hypoglycemia Protocol Docusate Sodium (Colace) 100 mg PO BID [facility] Last Admin: 08/06/18 17:53 Dose: 100 mg Enalapril Maleate (Vasotec) 30 mg PO DAILY [facility] Last Admin: 08/06/18 10:05 Dose: 30 mg Finasteride (Proscar) 5 mg PO DAILY [facility] Last Admin: 08/06/18 10:06 Dose: 5 mg Gabapentin (Neurontin) 100 mg PO TID [facility] Last Admin: 08/06/18 17:53 Dose: 100 mg Glucagon (Glucagen Diagnostic Kit) 0 mg IM STAT PRN; Protocol PRN Reason: Hypoglycemia Protocol Cefazolin Sodium 2,000 mg/ (Sodium Chloride) 50 mls @ 100 mls/hr IVPB Q8H [facility]; Protocol Last Admin: 08/06/18 11:00 Dose: 100 mls/hr Insulin Glargine (Lantus) 25 unit SC DAILY [facility] Last Admin: 08/06/18 10:07 Dose: 25 unit Insulin Human Regular (Novolin R) 0 unit SC ACHS [facility]; Protocol Last Admin: 08/06/18 17:53 Dose: 4 units Lactobacillus Acidophilus (Bacid Acidophilus) 1 cap PO BID [facility] Last Admin: 08/06/18 17:53 Dose: 1 cap Lidocaine (Lidoderm) 1 ea TD DAILY [facility] Last Admin: 08/06/18 10:08 Dose: 1 ea Metoprolol Succinate (Toprol Xl) 50 mg PO DAILY [facility] Last Admin: 08/06/18 10:06 Dose: 50 mg Mupirocin (Bactroban Ointment) 0 gm TOP BID [facility] Last Admin: 08/06/18 17:55 Dose: 1 applic Naproxen (Anaprox Ds) 550 mg PO Q12H PRN PRN Reason: Pain, moderate (4-7) Last Admin: 08/06/18 13:02 Dose: 550 mg Pantoprazole Sodium (Protonix Ec Tab) 40 mg PO DAILY [facility] Last Admin: 08/06/18 10:05 Dose: 40 mg Tamsulosin HCl (Flomax) 0.4 mg PO BID [facility] Last Admin: 08/06/18 17:53 Dose: 0.4 mg - Labs Labs: 08/06/18 07:06 08/06/18 07:06 PT 15.6 SECONDS (9.7-12.2) H 07/21/18 20:28 INR 1.4 07/21/18 20:28 APTT 34 SECONDS (21-34) 07/21/18 20:28 Attending/Attestation - Attestation I have personally seen and examined this patient.: Yes I have fully participated in the care of the patient.: Yes I have reviewed all pertinent clinical information, including history, physical exam and plan: Yes Notes (Text): 08/06/18 17:58 Medical attending: Patient was seen and examined by me. Agree with the above note by the resident The patient was not in any acute distress when I came and saw. Since the previous week he has remained on IV abx - he had findings of small areas of abccess on the lumbar spine area. He continues to have ongoing pain issues. He again appears very depressed and given his circumstances this is understandable Galen Alston
[2018-08-06] MEDS: (Novolin R) Insulin Human Regular 100 units/ml vial SC SCH ×4 (07:52→21:53)
[2018-08-06 08:07] LABS: ALB/GLOB RATIO 0.7 (1.0-2.1); ALBUMIN 2.8 g/dL (3.5-5.0); ALT/SGPT 9 U/L (21-72); AST/SGOT 30 U/L (17-59); BLOOD UREA NITROGEN 20 mg/dL (9-20); CALCIUM 8.6 mg/dl (8.6-10.4); GFR NON-AFRICAN AMERICAN > 60
[2018-08-06] MEDS: Lactobacillus Acidophilus 500 MU Cap PO SCH ×2 (10:05→17:53)
[2018-08-06] MEDS: Pantoprazole 40 mg EC Tab PO SCH (10:05)
[2018-08-06] MEDS: Metoprolol Succinate 50 mg XL Tab PO SCH (10:06)
[2018-08-06] MEDS: (Lantus) Insulin Glargine, Recombinant SC SCH (10:07)
[2018-08-06] MEDS: Lidocaine 5% Patch TD SCH (10:08)
[2018-08-06] MEDS: Naproxen 550 mg Tab PO PRN (13:02)
--- NOTE | 2018-08-06 13:58 | RAD ---
Date of service: 08/06/2018 HISTORY: atelectasis vs pneumonia COMPARISON: 07/26/2018 TECHNIQUE: Chest PA and lateral FINDINGS: LUNGS: No active pulmonary disease. PLEURA: No significant pleural effusion identified. No pneumothorax apparent. CARDIOVASCULAR: No aortic atherosclerotic calcification present. Mild cardiomegaly no pulmonary vascular congestion. OSSEOUS STRUCTURES: No significant abnormalities. VISUALIZED UPPER ABDOMEN: Normal. OTHER FINDINGS: There is a left-sided central line that terminates in the upper right atrium IMPRESSION: No active disease.
[2018-08-07] MEDS: Naproxen 550 mg Tab PO PRN (03:01)
[2018-08-07 07:23] LABS: BASO # 0.1 K/uL (0.0-0.2); BASO % 1.1 % (0.0-2.0); EOS # 0.4 K/uL (0.0-0.7); LYMPH # 1.7 K/uL (1.0-4.3); LYMPH % 18.1 % (20.0-40.0); MEAN CELL VOLUME 86.4 fL (80.0-94.0); MEAN CORPUSCULAR HEMOGLOBIN 30.7 pg (27.0-31.0); MEAN CORPUSCULAR HGB CONC 35.6 g/dL (33.0-37.0); MEAN PLATELET VOLUME 8.1 fL (7.2-11.7); MONO # 0.5 K/uL (0.0-0.8); MONO % 5.7 % (0.0-10.0); NEUT # 6.6 K/uL (1.8-7.0); NEUT % 71.1 % (50.0-75.0); RBC 2.6 Mil/uL (4.40-5.90); RED CELL DISTRIBUTION WIDTH 13.5 % (11.5-14.5); WHITE BLOOD COUNT 9.3 K/uL (4.8-10.8)
[2018-08-07 08:04] LABS: ALB/GLOB RATIO 0.7 (1.0-2.1); ALBUMIN 2.7 g/dL (3.5-5.0); ALT/SGPT 10 U/L (21-72); AST/SGOT 18 U/L (17-59); BLOOD UREA NITROGEN 22 mg/dL (9-20); CALCIUM 8.6 mg/dl (8.6-10.4); GFR NON-AFRICAN AMERICAN > 60
[2018-08-07] MEDS: (Novolin R) Insulin Human Regular 100 units/ml vial SC SCH ×4 (08:17→21:19)
[2018-08-07] MEDS: Metoprolol Succinate 50 mg XL Tab PO SCH (11:17)
[2018-08-07] MEDS: Pantoprazole 40 mg EC Tab PO SCH (11:17)
[2018-08-07] MEDS: Lactobacillus Acidophilus 500 MU Cap PO SCH ×2 (11:18→17:57)
[2018-08-07] MEDS: (Lantus) Insulin Glargine, Recombinant SC SCH (11:26)
[2018-08-07] MEDS: Lidocaine 5% Patch TD SCH (11:44)
--- NOTE | 2018-08-07 14:45 | CP.PCM.PN ---
<Ronit Rodriguez - Last Filed: 08/07/18 15:47> Subjective - Date & Time of Evaluation Date of Evaluation: 08/07/18 Time of Evaluation: 09:00 - Subjective Subjective: Ronit Rodriguez PGY1 Progress Note for Dr. Alston Pt was examined at bedside this morning. He reports L sided abdominal pain. He reports improvement of his back pain. He denies fever, chills, nausea, vomiting, diarrhea, chest pain, shortness of breath. Objective - Vital Signs/Intake and Output Vital Signs (last 24 hours): Temp Pulse Resp BP Pulse Ox 98 F 86 20 147/71 95 08/07/18 07:59 08/07/18 07:59 08/07/18 07:59 08/07/18 11:16 08/07/18 07:59 Intake and Output: 08/07/18 08/07/18 06:59 18:59 Intake Total 700 Output Total 1950 Balance -1250 - Medications Medications: Current Medications Acetaminophen (Tylenol 325mg Tab) 650 mg PO Q6 PRN PRN Reason: Fever >100.4 or Pain Last Admin: 08/07/18 11:22 Dose: 650 mg Amlodipine Besylate (Norvasc) 10 mg PO DAILY ON LICENSE OF [facility] Last Admin: 08/07/18 11:17 Dose: 10 mg Aspirin (Ecotrin) 81 mg PO DAILY ON LICENSE OF [facility] Last Admin: 08/07/18 11:18 Dose: 81 mg Dextrose (Dextrose 50% Inj) 0 ml IV STAT PRN; Protocol PRN Reason: Hypoglycemia Protocol Last Admin: 07/22/18 11:53 Dose: 50 ml Dextrose (Glutose 15) 0 gm PO ONCE PRN; Protocol PRN Reason: Hypoglycemia Protocol Docusate Sodium (Colace) 100 mg PO BID ON LICENSE OF [facility] Last Admin: 08/07/18 11:17 Dose: 100 mg Enalapril Maleate (Vasotec) 30 mg PO DAILY ON [facility] OF [facility] Last Admin: 08/07/18 11:16 Dose: 30 mg Finasteride (Proscar) 5 mg PO DAILY ON [facility] OF [facility] Last Admin: 08/07/18 11:17 Dose: 5 mg Gabapentin (Neurontin) 100 mg PO TID ON LICENSE OF [facility] Last Admin: 08/07/18 11:17 Dose: 100 mg Glucagon (Glucagen Diagnostic Kit) 0 mg IM STAT PRN; Protocol PRN Reason: Hypoglycemia Protocol Cefazolin Sodium 2,000 mg/ (Sodium Chloride) 50 mls @ 100 mls/hr IVPB Q8H ON LICENSE OF [facility]; Protocol Last Admin: 08/07/18 11:26 Dose: 100 mls/hr Insulin Glargine (Lantus) 25 unit SC DAILY ON LICENSE OF [facility] Last Admin: 08/07/18 11:26 Dose: 25 unit Insulin Human Regular (Novolin R) 0 unit SC ACHS ON LICENSE OF [facility]; Protocol Last Admin: 08/07/18 11:26 Dose: 4 units Lactobacillus Acidophilus (Bacid Acidophilus) 1 cap PO BID ON LICENSE OF [facility] Last Admin: 08/07/18 11:18 Dose: 1 cap Lidocaine (Lidoderm) 1 ea TD DAILY ON [facility] OF [facility] Last Admin: 08/07/18 11:44 Dose: 1 ea Metoprolol Succinate (Toprol Xl) 50 mg PO DAILY ON [facility] OF [facility] Last Admin: 08/07/18 11:17 Dose: 50 mg Mupirocin (Bactroban Ointment) 0 gm TOP BID ON LICENSE OF [facility] Last Admin: 08/07/18 11:29 Dose: 1 applic Naproxen (Anaprox Ds) 550 mg PO Q12H PRN PRN Reason: Pain, moderate (4-7) Last Admin: 08/07/18 03:01 Dose: 550 mg Pantoprazole Sodium (Protonix Ec Tab) 40 mg PO DAILY ON [facility] OF [facility] Last Admin: 08/07/18 11:17 Dose: 40 mg Tamsulosin HCl (Flomax) 0.4 mg PO BID ON LICENSE OF [facility] Last Admin: 08/07/18 11:18 Dose: 0.4 mg - Labs Labs: 08/07/18 07:11 08/07/18 07:11 PT 15.6 SECONDS (9.7-12.2) H 07/21/18 20:28 INR 1.4 07/21/18 20:28 APTT 34 SECONDS (21-34) 07/21/18 20:28 - Additional Findings Additional findings: - Constitutional Appears: No Acute Distress, Chronically Ill - Head Exam Additional comments: ulcerative lesion on the L nare and L malar region, erythema with slight granulation tissue. no drainage noted. cartilage visible. - Eye Exam Eye Exam: EOMI, Normal appearance, PERRL - ENT Exam ENT Exam: Mucous Membranes Moist Additional comments: ulcerative lesion on the L nare and L malar region, erythema with slight granulation tissue. no drainage noted. cartilage visible. - Respiratory Exam Respiratory Exam: Clear to Ausculation Bilateral, NORMAL BREATHING PATTERN. absent: Rales, Rhonchi, Wheezes, Respiratory Distress - Cardiovascular Exam Cardiovascular Exam: REGULAR RHYTHM, +S1, +S2. absent: Gallop, Rubs, Murmur. - GI/Abdominal Exam GI & Abdominal Exam: Soft, Tenderness, Normal Bowel Sounds. absent: Distended, Firm, Tender - Extremities Exam Extremities Exam: absent: Pedal Edema Additional comments: RUE/back: tenderness to palpation of posterior shoulder, hypertonicity of right upper back. ROM intact b/l below knee amputations - Neurological Exam Neurological Exam: Alert, Awake, Oriented x3. absent: Motor Sensory Deficit - Skin Skin Exam: Normal Color Assessment and Plan - Assessment and Plan (Free Text) Assessment: 53 yo male with a history of uncontrolled T2DM (s/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 Patient's blood cultures are positive for Staph aureus, currently being treated for bacteremia. Plan: Staph Aureus Bacteremia: - Blood Cx positive for Staph aureus - Rpt BCx negative - likely source: spinal abscess - ancef 2000mg IV q8h (07/25), as per ID - 6-8 week course antibiotic treatment, as per ID - Tmax 100.8 07/25 - Tylenol 650 mg PO Q6H PRN - Procal 14.74 - UA 07/21: many magda, 340 WBC, trace LE, negative nitrate - UA 07/23: negative LE, negative nitrates - Urine Cx: no growth - Echo: LV normal size and EF. LA mildly dilated. Mild TR. - Cardio consulted, Dr. 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 Fragoso - psoas collection and spinal abscess too small to drain - NeuroSx consulted, Dr. Olivia - no intervention at this time HTN - patient persistently hypertensive - ASA 81 mg PO daily - Enalapril 30 mg PO daily - Metoprolol 50 mg PO daily - norvasc 5mg PO daily CAP - CXR 08/06: no active disease - CT A/P: LLL consolidation vs atelectasis - ancef 2000mg IV q8h (07/25) AIDA - BUN/Cr 22/0.8, resolved - I/Os - Replete electrolytes PRN Urinary Retention - CT A/P: bladder wall thickening (cystitis), b/l renal parenchymal high density may be underlying metabolic disorder - I/Os - sagastume catheter (07/27) - flomax 0.4mg PO BID - finasteride 5mg PO daily - Urology consulted: Titi Kam - maintain sagastume Unresponsiveness - resolved, pt AAOx3 - Code stroke - EEG: nonspecific abnormalities, no seizures noted - CT head: no acute findings - CTA head and neck: no significant stenoses or abnormalities - PRL wnl (12.9) - Gabapentin 100 mg PO TID - Neurology consulted: Manda - no need for anticonvulsant at this time DM type 2 - A1c 8.9 - medium dose Novolin R ISS - lantus 25u SC daily - Hypoglycemia protocol - Accuchecks ACHS Ppx: DVT: Heparin 5000 units Q12H GI: Protonix 40 mg PO daily PT/OT: GARRETT Dispo: pt without insurance and undocumented citizen, pending medicaid acceptance. Likely to stay for duration of antibiotic tx course. Pt seen with and case discussed with Dr. Alston <Galen Alston - Last Filed: 08/07/18 16:42> Objective - Vital Signs/Intake and Output Vital Signs (last 24 hours): Temp Pulse Resp BP Pulse Ox 98 F 82 20 154/75 H 97 08/07/18 16:00 08/07/18 16:00 08/07/18 16:00 08/07/18 16:00 08/07/18 16:00 Intake and Output: 08/07/18 08/07/18 06:59 18:59 Intake Total 700 Output Total 1950 Balance -1250 - Medications Medications: Current Medications Acetaminophen (Tylenol 325mg Tab) 650 mg PO Q6 PRN PRN Reason: Fever >100.4 or Pain Last Admin: 08/07/18 11:22 Dose: 650 mg Amlodipine Besylate (Norvasc) 10 mg PO DAILY ON [facility] Last Admin: 08/07/18 11:17 Dose: 10 mg Aspirin (Ecotrin) 81 mg PO DAILY ON [facility] Last Admin: 08/07/18 11:18 Dose: 81 mg Dextrose (Dextrose 50% Inj) 0 ml IV STAT PRN; Protocol PRN Reason: Hypoglycemia Protocol Last Admin: 07/22/18 11:53 Dose: 50 ml Dextrose (Glutose 15) 0 gm PO ONCE PRN; Protocol PRN Reason: Hypoglycemia Protocol Docusate Sodium (Colace) 100 mg PO BID ON [facility] Last Admin: 08/07/18 11:17 Dose: 100 mg Enalapril Maleate (Vasotec) 30 mg PO DAILY ON [facility] Last Admin: 08/07/18 11:16 Dose: 30 mg Finasteride (Proscar) 5 mg PO DAILY ON [facility] Last Admin: 08/07/18 11:17 Dose: 5 mg Gabapentin (Neurontin) 100 mg PO TID ON [facility] Last Admin: 08/07/18 11:17 Dose: 100 mg Glucagon (Glucagen Diagnostic Kit) 0 mg IM STAT PRN; Protocol PRN Reason: Hypoglycemia Protocol Cefazolin Sodium 2,000 mg/ (Sodium Chloride) 50 mls @ 100 mls/hr IVPB Q8H ON [facility] OF [facility]; Protocol Last Admin: 08/07/18 11:26 Dose: 100 mls/hr Insulin Glargine (Lantus) 25 unit SC DAILY ON [facility] Last Admin: 08/07/18 11:26 Dose: 25 unit Insulin Human Regular (Novolin R) 0 unit SC ACHS ON [facility]; Protocol Last Admin: 08/07/18 11:26 Dose: 4 units Lactobacillus Acidophilus (Bacid Acidophilus) 1 cap PO BID ON [facility] Last Admin: 08/07/18 11:18 Dose: 1 cap Lidocaine (Lidoderm) 1 ea TD DAILY ON [facility] Last Admin: 08/07/18 11:44 Dose: 1 ea Metoprolol Succinate (Toprol Xl) 50 mg PO DAILY ON [facility] Last Admin: 08/07/18 11:17 Dose: 50 mg Mupirocin (Bactroban Ointment) 0 gm TOP BID ON [facility] Last Admin: 08/07/18 11:29 Dose: 1 applic Naproxen (Anaprox Ds) 550 mg PO Q12H PRN PRN Reason: Pain, moderate (4-7) Last Admin: 08/07/18 03:01 Dose: 550 mg Pantoprazole Sodium (Protonix Ec Tab) 40 mg PO DAILY ON [facility] Last Admin: 08/07/18 11:17 Dose: 40 mg Tamsulosin HCl (Flomax) 0.4 mg PO BID ON [facility] Last Admin: 08/07/18 11:18 Dose: 0.4 mg - Labs Labs: 08/07/18 07:11 08/07/18 07:11 PT 15.6 SECONDS (9.7-12.2) H 07/21/18 20:28 INR 1.4 07/21/18 20:28 APTT 34 SECONDS (21-34) 07/21/18 20:28 Attending/Attestation - Attestation I have personally seen and examined this patient.: Yes I have fully participated in the care of the patient.: Yes I have reviewed all pertinent clinical information, including history, physical exam and plan: Yes Notes (Text): 08/07/18 16:37 Medical attending: Patient was seen and examined by me, patient was seen with the diploma medical assistant as well. Reviewed the above note by the resident and agree with the above. At this point we are continuing with the IV abx, as previously mentioned he has the areas of small abcess on the the lumbar spine and will require prolonged IV abx Galen Alston
[2018-08-08] MEDS: Naproxen 550 mg Tab PO PRN (03:03)
[2018-08-08] MEDS: (Novolin R) Insulin Human Regular 100 units/ml vial SC SCH ×4 (08:18→21:45)
[2018-08-08 08:39] LABS: BASO # 0.1 K/uL (0.0-0.2); BASO % 0.8 % (0.0-2.0); EOS # 0.4 K/uL (0.0-0.7); EOS % 4.6 % (0.0-4.0); HEMOGLOBIN 8.2 g/dL (12.0-18.0); LYMPH % 22.7 % (20.0-40.0); MEAN CELL VOLUME 86.1 fL (80.0-94.0); MEAN CORPUSCULAR HEMOGLOBIN 29.7 pg (27.0-31.0); MEAN CORPUSCULAR HGB CONC 34.4 g/dL (33.0-37.0); MEAN PLATELET VOLUME 8.1 fL (7.2-11.7); MONO # 0.5 K/uL (0.0-0.8); MONO % 5.1 % (0.0-10.0); NEUT % 66.8 % (50.0-75.0); RBC 2.77 Mil/uL (4.40-5.90); RED CELL DISTRIBUTION WIDTH 13.4 % (11.5-14.5); WHITE BLOOD COUNT 8.9 K/uL (4.8-10.8)
[2018-08-08 08:56] LABS: ALB/GLOB RATIO 0.7 (1.0-2.1); ALBUMIN 2.8 g/dL (3.5-5.0); ALT/SGPT 9 U/L (21-72); AST/SGOT 21 U/L (17-59); BLOOD UREA NITROGEN 18 mg/dL (9-20); CALCIUM 8.9 mg/dl (8.6-10.4); GFR NON-AFRICAN AMERICAN > 60
[2018-08-08] MEDS: Lactobacillus Acidophilus 500 MU Cap PO SCH ×2 (09:40→17:45)
[2018-08-08] MEDS: Pantoprazole 40 mg EC Tab PO SCH (09:40)
[2018-08-08] MEDS: Metoprolol Succinate 50 mg XL Tab PO SCH (09:41)
[2018-08-08] MEDS: (Lantus) Insulin Glargine, Recombinant SC SCH (09:43)
[2018-08-08] MEDS: Lidocaine 5% Patch TD SCH (11:48)
[2018-08-08] MEDS ORDERED: oxyCODONE 10 mg Immediate Release Tab PO PRN (14:51)
--- NOTE | 2018-08-08 14:55 | CP.PCM.PN ---
<Ronit Rodriguez - Last Filed: 08/08/18 14:52> Subjective - Date & Time of Evaluation Date of Evaluation: 08/08/18 Time of Evaluation: 08:00 - Subjective Subjective: Ronit Rodriguez PGY1 Progress Note for Dr. Alston Pt was examined at bedside this morning. He reports continued right sided shoulder pain. He reports improvement in the L sided abdominal pain and back pain. Pt denies chest pain, shortness of breath, nausea, vomiting, diarrhea. Objective - Vital Signs/Intake and Output Vital Signs (last 24 hours): Temp Pulse Resp BP Pulse Ox 97.5 F L 87 20 159/79 H 95 08/08/18 07:49 08/08/18 07:49 08/08/18 07:49 08/08/18 09:41 08/08/18 07:49 Intake and Output: 08/08/18 08/08/18 06:59 18:59 Intake Total 800 Output Total 2250 Balance -1450 - Medications Medications: Current Medications Acetaminophen (Tylenol 325mg Tab) 650 mg PO Q6 PRN PRN Reason: Fever >100.4 or Pain Last Admin: 08/07/18 11:22 Dose: 650 mg Amlodipine Besylate (Norvasc) 10 mg PO DAILY [facility] Last Admin: 08/08/18 09:40 Dose: 10 mg Aspirin (Ecotrin) 81 mg PO DAILY [facility] Last Admin: 08/08/18 09:41 Dose: 81 mg Dextrose (Dextrose 50% Inj) 0 ml IV STAT PRN; Protocol PRN Reason: Hypoglycemia Protocol Last Admin: 07/22/18 11:53 Dose: 50 ml Dextrose (Glutose 15) 0 gm PO ONCE PRN; Protocol PRN Reason: Hypoglycemia Protocol Docusate Sodium (Colace) 100 mg PO BID [facility] Last Admin: 08/08/18 09:40 Dose: 100 mg Enalapril Maleate (Vasotec) 30 mg PO DAILY [facility] Last Admin: 08/08/18 09:41 Dose: 30 mg Finasteride (Proscar) 5 mg PO DAILY [facility] Last Admin: 08/08/18 09:40 Dose: 5 mg Gabapentin (Neurontin) 100 mg PO TID [facility] Last Admin: 08/08/18 14:12 Dose: 100 mg Glucagon (Glucagen Diagnostic Kit) 0 mg IM STAT PRN; Protocol PRN Reason: Hypoglycemia Protocol Cefazolin Sodium 2,000 mg/ (Sodium Chloride) 50 mls @ 100 mls/hr IVPB Q8H [facility]; Protocol Last Admin: 08/08/18 11:32 Dose: 100 mls/hr Insulin Glargine (Lantus) 25 unit SC DAILY [facility] Last Admin: 08/08/18 09:43 Dose: Not Given Insulin Human Regular (Novolin R) 0 unit SC ACHS [facility]; Protocol Last Admin: 08/08/18 12:41 Dose: 3 units Lactobacillus Acidophilus (Bacid Acidophilus) 1 cap PO BID [facility] Last Admin: 08/08/18 09:40 Dose: 1 cap Lidocaine (Lidoderm) 1 ea TD DAILY [facility] Last Admin: 08/08/18 11:48 Dose: 1 ea Metoprolol Succinate (Toprol Xl) 50 mg PO DAILY [facility] Last Admin: 08/08/18 09:41 Dose: 50 mg Mupirocin (Bactroban Ointment) 0 gm TOP BID [facility] Last Admin: 08/08/18 09:43 Dose: 1 applic Naproxen (Anaprox Ds) 550 mg PO Q12H PRN PRN Reason: Pain, moderate (4-7) Last Admin: 08/08/18 03:03 Dose: 550 mg Oxycodone HCl (Oxycontin Extended Release Tab) 10 mg PO Q12 PRN PRN Reason: Pain, moderate (4-7) Stop: 08/11/18 22:01 Pantoprazole Sodium (Protonix Ec Tab) 40 mg PO DAILY [facility] Last Admin: 08/08/18 09:40 Dose: 40 mg Tamsulosin HCl (Flomax) 0.4 mg PO BID [facility] Last Admin: 08/08/18 09:41 Dose: 0.4 mg - Labs Labs: 08/08/18 08:18 08/08/18 08:18 PT 15.6 SECONDS (9.7-12.2) H 07/21/18 20:28 INR 1.4 07/21/18 20:28 APTT 34 SECONDS (21-34) 07/21/18 20:28 - Additional Findings Additional findings: - Constitutional Appears: No Acute Distress, Chronically Ill - Head Exam Additional comments: ulcerative lesion on the L nare and L malar region, erythema with slight granulation tissue. no drainage noted. cartilage visible. - Eye Exam Eye Exam: EOMI, Normal appearance, PERRL - ENT Exam ENT Exam: Mucous Membranes Moist Additional comments: ulcerative lesion on the L nare and L malar region, erythema with slight granulation tissue. no drainage noted. cartilage visible. - Respiratory Exam Respiratory Exam: Clear to Ausculation Bilateral, NORMAL BREATHING PATTERN. absent: Rales, Rhonchi, Wheezes, Respiratory Distress - Cardiovascular Exam Cardiovascular Exam: REGULAR RHYTHM, +S1, +S2. absent: Gallop, Rubs, Murmur. - GI/Abdominal Exam GI & Abdominal Exam: Soft, Tenderness, Normal Bowel Sounds. absent: Distended, Firm, Tender - Extremities Exam Extremities Exam: absent: Pedal Edema Additional comments: RUE/back: tenderness to palpation of posterior shoulder, hypertonicity of right upper back. ROM intact b/l below knee amputations - Neurological Exam Neurological Exam: Alert, Awake, Oriented x3. absent: Motor Sensory Deficit - Skin Skin Exam: Normal Color Assessment and Plan - Assessment and Plan (Free Text) Assessment: 53 yo male with a history of uncontrolled T2DM (s/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 Patient's blood cultures are positive for Staph aureus, currently being treated for bacteremia. Plan: Staph Aureus Bacteremia: - Blood Cx positive for Staph aureus - Rpt BCx negative - likely source: spinal abscess - ancef 2000mg IV q8h (07/25), as per ID - 6-8 week course antibiotic treatment, as per ID - Tmax 100.8 07/25 - Tylenol 650 mg PO Q6H PRN - Procal 14.74 - UA 07/21: many magda, 340 WBC, trace LE, negative nitrate - UA 07/23: negative LE, negative nitrates - Urine Cx: no growth - Echo: LV normal size and EF. LA mildly dilated. Mild TR. - Cardio consulted, Dr. 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 Fragoso - psoas collection and spinal abscess too small to drain - NeuroSx consulted, Dr. Olivia - no intervention at this time HTN - patient persistently hypertensive - ASA 81 mg PO daily - Enalapril 30 mg PO daily - Metoprolol 50 mg PO daily - norvasc 5mg PO daily CAP - CXR 08/06: no active disease - CT A/P: LLL consolidation vs atelectasis - ancef 2000mg IV q8h (07/25) Urinary Retention - CT A/P: bladder wall thickening (cystitis), b/l renal parenchymal high density may be underlying metabolic disorder - I/Os - sagastume catheter (07/27) - flomax 0.4mg PO BID - finasteride 5mg PO daily - Urology consulted: Titi Kam - maintain sagastume Unresponsiveness - resolved, pt AAOx3 - Code stroke - EEG: nonspecific abnormalities, no seizures noted - CT head: no acute findings - CTA head and neck: no significant stenoses or abnormalities - PRL wnl (12.9) - Gabapentin 100 mg PO TID - Neurology consulted: Manda - no need for anticonvulsant at this time DM type 2 - A1c 8.9 - medium dose Novolin R ISS - lantus 25u SC daily - Hypoglycemia protocol - Accuchecks ACHS Ppx: DVT: Heparin 5000 units Q12H GI: Protonix 40 mg PO daily PT/OT: GARRETT Dispo: pt without insurance and undocumented citizen, pending medicaid acceptance. Likely to stay for duration of antibiotic tx course. Pt seen with and case discussed with Dr. Alston <Galen Alston - Last Filed: 08/08/18 19:18> Objective - Vital Signs/Intake and Output Vital Signs (last 24 hours): Temp Pulse Resp BP Pulse Ox 98.8 F 86 20 149/77 96 08/08/18 17:02 08/08/18 17:02 08/08/18 17:02 08/08/18 17:02 08/08/18 17:02 Intake and Output: 08/08/18 08/09/18 18:59 06:59 Intake Total 290 Output Total 650 Balance -360 - Medications Medications: Current Medications Acetaminophen (Tylenol 325mg Tab) 650 mg PO Q6 PRN PRN Reason: Fever >100.4 or Pain Last Admin: 08/07/18 11:22 Dose: 650 mg Amlodipine Besylate (Norvasc) 10 mg PO DAILY [facility] Last Admin: 08/08/18 09:40 Dose: 10 mg Aspirin (Ecotrin) 81 mg PO DAILY [facility] Last Admin: 08/08/18 09:41 Dose: 81 mg Dextrose (Dextrose 50% Inj) 0 ml IV STAT PRN; Protocol PRN Reason: Hypoglycemia Protocol Last Admin: 07/22/18 11:53 Dose: 50 ml Dextrose (Glutose 15) 0 gm PO ONCE PRN; Protocol PRN Reason: Hypoglycemia Protocol Docusate Sodium (Colace) 100 mg PO BID [facility] Last Admin: 08/08/18 17:45 Dose: 100 mg Enalapril Maleate (Vasotec) 30 mg PO DAILY [facility] Last Admin: 08/08/18 09:41 Dose: 30 mg Finasteride (Proscar) 5 mg PO DAILY [facility] Last Admin: 08/08/18 09:40 Dose: 5 mg Gabapentin (Neurontin) 100 mg PO TID [facility] Last Admin: 08/08/18 17:45 Dose: 100 mg Glucagon (Glucagen Diagnostic Kit) 0 mg IM STAT PRN; Protocol PRN Reason: Hypoglycemia Protocol Cefazolin Sodium 2,000 mg/ (Sodium Chloride) 50 mls @ 100 mls/hr IVPB Q8H [facility]; Protocol Last Admin: 08/08/18 11:32 Dose: 100 mls/hr Insulin Glargine (Lantus) 25 unit SC DAILY [facility] Last Admin: 08/08/18 09:43 Dose: Not Given Insulin Human Regular (Novolin R) 0 unit SC ACHS [facility]; Protocol Last Admin: 08/08/18 17:30 Dose: 6 units Lactobacillus Acidophilus (Bacid Acidophilus) 1 cap PO BID [facility] Last Admin: 08/08/18 17:45 Dose: 1 cap Lidocaine (Lidoderm) 1 ea TD DAILY [facility] Last Admin: 08/08/18 11:48 Dose: 1 ea Metoprolol Succinate (Toprol Xl) 50 mg PO DAILY [facility] Last Admin: 08/08/18 09:41 Dose: 50 mg Mupirocin (Bactroban Ointment) 0 gm TOP BID [facility] Last Admin: 08/08/18 17:44 Dose: 1 applic Naproxen (Anaprox Ds) 550 mg PO Q12H PRN PRN Reason: Pain, moderate (4-7) Last Admin: 08/08/18 03:03 Dose: 550 mg Oxycodone HCl (Oxycodone Immediate Release Tab) 10 mg PO Q12 PRN PRN Reason: Pain, severe (8-10) Stop: 08/11/18 22:01 Pantoprazole Sodium (Protonix Ec Tab) 40 mg PO DAILY [facility] Last Admin: 08/08/18 09:40 Dose: 40 mg Tamsulosin HCl (Flomax) 0.4 mg PO BID [facility] Last Admin: 08/08/18 17:45 Dose: 0.4 mg - Labs Labs: 08/08/18 08:18 08/08/18 08:18 PT 15.6 SECONDS (9.7-12.2) H 07/21/18 20:28 INR 1.4 07/21/18 20:28 APTT 34 SECONDS (21-34) 07/21/18 20:28 Attending/Attestation - Attestation I have personally seen and examined this patient.: Yes I have fully participated in the care of the patient.: Yes I have reviewed all pertinent clinical information, including history, physical exam and plan: Yes Notes (Text): 08/08/18 19:17 Medical attending: Patient was seen and examined by me. Agree with the above note by the resident The patient was not in any acute distress. He reported minimal pain on the left flank area. At this time he remains on the IV abx as before. Galen Alston
[2018-08-09 07:42] LABS: BASO # 0.1 K/uL (0.0-0.2); EOS # 0.4 K/uL (0.0-0.7); EOS % 3.7 % (0.0-4.0); LYMPH # 1.7 K/uL (1.0-4.3); LYMPH % 18.1 % (20.0-40.0); MEAN CELL VOLUME 86.7 fL (80.0-94.0); MEAN CORPUSCULAR HEMOGLOBIN 29.7 pg (27.0-31.0); MEAN CORPUSCULAR HGB CONC 34.2 g/dL (33.0-37.0); MEAN PLATELET VOLUME 8.5 fL (7.2-11.7); MONO # 0.7 K/uL (0.0-0.8); NEUT # 6.7 K/uL (1.8-7.0); NEUT % 70.2 % (50.0-75.0); RBC 2.69 Mil/uL (4.40-5.90); RED CELL DISTRIBUTION WIDTH 13.3 % (11.5-14.5); WHITE BLOOD COUNT 9.5 K/uL (4.8-10.8)
[2018-08-09] MEDS: (Novolin R) Insulin Human Regular 100 units/ml vial SC SCH ×4 (07:54→21:41)
[2018-08-09 08:17] LABS: ALB/GLOB RATIO 0.7 (1.0-2.1); ALBUMIN 2.8 g/dL (3.5-5.0); ALT/SGPT 12 U/L (21-72); AST/SGOT 18 U/L (17-59); BLOOD UREA NITROGEN 21 mg/dL (9-20); CALCIUM 8.4 mg/dl (8.6-10.4); GFR NON-AFRICAN AMERICAN > 60
[2018-08-09] MEDS: Metoprolol Succinate 50 mg XL Tab PO SCH (09:41)
[2018-08-09] MEDS: Lactobacillus Acidophilus 500 MU Cap PO SCH ×2 (09:41→17:37)
[2018-08-09] MEDS: Pantoprazole 40 mg EC Tab PO SCH (09:42)
[2018-08-09] MEDS: (Lantus) Insulin Glargine, Recombinant SC SCH (09:46)
[2018-08-09] MEDS: Lidocaine 5% Patch TD SCH (10:14)
[2018-08-09] MEDS: Naproxen 550 mg Tab PO PRN (11:31)
[2018-08-09] MEDS: oxyCODONE 10 mg Immediate Release Tab PO PRN (13:30)
--- NOTE | 2018-08-09 14:38 | CP.PCM.PN ---
<Ronit Rodriguez - Last Filed: 08/09/18 14:34> Subjective - Date & Time of Evaluation Date of Evaluation: 08/09/18 Time of Evaluation: 08:00 - Subjective Subjective: Ronit Rodriguez PGY1 Progress note for Dr. Alston Pt was examined at bedside this morning. He reports improvement in the pain in his back, but continuation in his left sided abdominal pain. He denies chest pain, shortness of breath, nausea, vomiting, diarrhea. Objective - Vital Signs/Intake and Output Vital Signs (last 24 hours): Temp Pulse Resp BP Pulse Ox 98.2 F 85 20 174/81 H 97 08/09/18 07:43 08/09/18 07:43 08/09/18 07:43 08/09/18 09:40 08/09/18 07:43 Intake and Output: 08/09/18 08/09/18 06:59 18:59 Intake Total 350 Output Total 1000 Balance -650 - Medications Medications: Current Medications Acetaminophen (Tylenol 325mg Tab) 650 mg PO Q6 PRN PRN Reason: Fever >100.4 or Pain Last Admin: 08/07/18 11:22 Dose: 650 mg Amlodipine Besylate (Norvasc) 10 mg PO DAILY [facility] Last Admin: 08/09/18 09:42 Dose: 10 mg Aspirin (Ecotrin) 81 mg PO DAILY [facility] Last Admin: 08/09/18 09:41 Dose: 81 mg Dextrose (Dextrose 50% Inj) 0 ml IV STAT PRN; Protocol PRN Reason: Hypoglycemia Protocol Last Admin: 07/22/18 11:53 Dose: 50 ml Dextrose (Glutose 15) 0 gm PO ONCE PRN; Protocol PRN Reason: Hypoglycemia Protocol Docusate Sodium (Colace) 100 mg PO BID [facility] Last Admin: 08/09/18 09:41 Dose: 100 mg Enalapril Maleate (Vasotec) 30 mg PO DAILY [facility] Last Admin: 08/09/18 09:40 Dose: 30 mg Finasteride (Proscar) 5 mg PO DAILY [facility] Last Admin: 08/09/18 09:41 Dose: 5 mg Gabapentin (Neurontin) 100 mg PO TID [facility] Last Admin: 08/09/18 13:30 Dose: 100 mg Glucagon (Glucagen Diagnostic Kit) 0 mg IM STAT PRN; Protocol PRN Reason: Hypoglycemia Protocol Cefazolin Sodium 2,000 mg/ (Sodium Chloride) 50 mls @ 100 mls/hr IVPB Q8H [facility]; Protocol Last Admin: 08/09/18 10:07 Dose: 100 mls/hr Insulin Glargine (Lantus) 25 unit SC DAILY [facility] Last Admin: 08/09/18 09:46 Dose: 25 unit Insulin Human Regular (Novolin R) 0 unit SC ACHS [facility]; Protocol Last Admin: 08/09/18 12:05 Dose: 3 units Lactobacillus Acidophilus (Bacid Acidophilus) 1 cap PO BID [facility] Last Admin: 08/09/18 09:41 Dose: 1 cap Lidocaine (Lidoderm) 1 ea TD DAILY [facility] Last Admin: 08/09/18 10:14 Dose: 1 ea Metoprolol Succinate (Toprol Xl) 50 mg PO DAILY [facility] Last Admin: 08/09/18 09:41 Dose: 50 mg Mupirocin (Bactroban Ointment) 0 gm TOP BID [facility] Last Admin: 08/09/18 09:52 Dose: 1 applic Naproxen (Anaprox Ds) 550 mg PO Q12H PRN PRN Reason: Pain, moderate (4-7) Last Admin: 08/09/18 11:31 Dose: 550 mg Oxycodone HCl (Oxycodone Immediate Release Tab) 20 mg PO Q12 PRN PRN Reason: Pain, severe (8-10) Stop: 08/11/18 13:18 Last Admin: 08/09/18 13:30 Dose: 20 mg Pantoprazole Sodium (Protonix Ec Tab) 40 mg PO DAILY [facility] Last Admin: 08/09/18 09:42 Dose: 40 mg Tamsulosin HCl (Flomax) 0.4 mg PO BID [facility] Last Admin: 08/09/18 09:42 Dose: 0.4 mg - Labs Labs: 08/09/18 07:17 08/09/18 07:17 PT 15.6 SECONDS (9.7-12.2) H 07/21/18 20:28 INR 1.4 07/21/18 20:28 APTT 34 SECONDS (21-34) 07/21/18 20:28 - Additional Findings Additional findings: - Constitutional Appears: No Acute Distress, Chronically Ill - Head Exam Additional comments: ulcerative lesion on the L nare and L malar region, erythema with slight granulation tissue. no drainage noted. cartilage visible. - Eye Exam Eye Exam: EOMI, Normal appearance, PERRL - ENT Exam ENT Exam: Mucous Membranes Moist Additional comments: ulcerative lesion on the L nare and L malar region, erythema with slight granulation tissue. no drainage noted. cartilage visible. - Respiratory Exam Respiratory Exam: Clear to Ausculation Bilateral, NORMAL BREATHING PATTERN. absent: Rales, Rhonchi, Wheezes, Respiratory Distress - Cardiovascular Exam Cardiovascular Exam: REGULAR RHYTHM, +S1, +S2. absent: Gallop, Rubs, Murmur. - GI/Abdominal Exam GI & Abdominal Exam: Soft, Tenderness, Normal Bowel Sounds. absent: Distended, Firm, Tender - Extremities Exam Extremities Exam: absent: Pedal Edema Additional comments: RUE/back: tenderness to palpation of posterior shoulder, hypertonicity of right upper back. ROM intact b/l below knee amputations - Neurological Exam Neurological Exam: Alert, Awake, Oriented x3. absent: Motor Sensory Deficit - Skin Skin Exam: Normal Color Assessment and Plan - Assessment and Plan (Free Text) Assessment: 53 yo male with a history of uncontrolled T2DM (s/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 Patient's blood cultures are positive for Staph aureus, currently being treated for bacteremia. Plan: Staph Aureus Bacteremia: - Blood Cx positive for Staph aureus - Rpt BCx negative - likely source: spinal abscess - ancef 2000mg IV q8h (07/25), as per ID - 6-8 week course antibiotic treatment, as per ID - Tmax 100.8 07/25 - Tylenol 650 mg PO Q6H PRN - Procal 14.74 - UA 07/23: negative LE, negative nitrates - Urine Cx: no growth - Echo: LV normal size and EF. LA mildly dilated. Mild TR. - Cardio consulted, Dr. 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 Fragoso - psoas collection and spinal abscess too small to drain - NeuroSx consulted, Dr. Olivia - no intervention at this time HTN - patient persistently hypertensive - ASA 81 mg PO daily - Enalapril 30 mg PO daily - Metoprolol 50 mg PO daily - norvasc 5mg PO daily CAP - CXR 08/06: no active disease - CT A/P: LLL consolidation vs atelectasis - ancef 2000mg IV q8h (07/25) Urinary Retention - CT A/P: bladder wall thickening (cystitis), b/l renal parenchymal high density may be underlying metabolic disorder - I/Os - sagastume catheter (07/27) - flomax 0.4mg PO BID - finasteride 5mg PO daily - Urology consulted: Titi Kam - maintain sagastume Unresponsiveness - resolved, pt AAOx3 - Code stroke - EEG: nonspecific abnormalities, no seizures noted - CT head: no acute findings - CTA head and neck: no significant stenoses or abnormalities - PRL wnl (12.9) - Gabapentin 100 mg PO TID - Neurology consulted: Manda - no need for anticonvulsant at this time DM type 2 - A1c 8.9 - medium dose Novolin R ISS - lantus 25u SC daily - Hypoglycemia protocol - Accuchecks ACHS Ppx: DVT: Heparin 5000 units Q12H GI: Protonix 40 mg PO daily PT/OT: GARRETT Dispo: pt without insurance and undocumented citizen, pending medicaid accepta nce. Likely to stay for duration of antibiotic tx course. Pt seen with and case discussed with Dr. Alston <Galen Alston - Last Filed: 08/09/18 15:32> Objective - Vital Signs/Intake and Output Vital Signs (last 24 hours): Temp Pulse Resp BP Pulse Ox 98.2 F 85 20 174/81 H 97 08/09/18 07:43 08/09/18 07:43 08/09/18 07:43 08/09/18 09:40 08/09/18 07:43 Intake and Output: 08/09/18 08/09/18 06:59 18:59 Intake Total 350 Output Total 1000 Balance -650 - Medications Medications: Current Medications Acetaminophen (Tylenol 325mg Tab) 650 mg PO Q6 PRN PRN Reason: Fever >100.4 or Pain Last Admin: 08/07/18 11:22 Dose: 650 mg Amlodipine Besylate (Norvasc) 10 mg PO DAILY [facility] Last Admin: 08/09/18 09:42 Dose: 10 mg Aspirin (Ecotrin) 81 mg PO DAILY [facility] Last Admin: 08/09/18 09:41 Dose: 81 mg Dextrose (Dextrose 50% Inj) 0 ml IV STAT PRN; Protocol PRN Reason: Hypoglycemia Protocol Last Admin: 07/22/18 11:53 Dose: 50 ml Dextrose (Glutose 15) 0 gm PO ONCE PRN; Protocol PRN Reason: Hypoglycemia Protocol Docusate Sodium (Colace) 100 mg PO BID [facility] Last Admin: 08/09/18 09:41 Dose: 100 mg Enalapril Maleate (Vasotec) 30 mg PO DAILY [facility] Last Admin: 08/09/18 09:40 Dose: 30 mg Finasteride (Proscar) 5 mg PO DAILY [facility] Last Admin: 08/09/18 09:41 Dose: 5 mg Gabapentin (Neurontin) 100 mg PO TID [facility] Last Admin: 08/09/18 13:30 Dose: 100 mg Glucagon (Glucagen Diagnostic Kit) 0 mg IM STAT PRN; Protocol PRN Reason: Hypoglycemia Protocol Cefazolin Sodium 2,000 mg/ (Sodium Chloride) 50 mls @ 100 mls/hr IVPB Q8H [facility]; Protocol Last Admin: 08/09/18 10:07 Dose: 100 mls/hr Insulin Glargine (Lantus) 25 unit SC DAILY [facility] Last Admin: 08/09/18 09:46 Dose: 25 unit Insulin Human Regular (Novolin R) 0 unit SC ACHS [facility]; Protocol Last Admin: 08/09/18 12:05 Dose: 3 units Lactobacillus Acidophilus (Bacid Acidophilus) 1 cap PO BID [facility] Last Admin: 11/16/18 09:41 Dose: 1 cap Lidocaine (Lidoderm) 1 ea TD DAILY [facility] Last Admin: 08/09/18 10:14 Dose: 1 ea Metoprolol Succinate (Toprol Xl) 50 mg PO DAILY [facility] Last Admin: 08/09/18 09:41 Dose: 50 mg Mupirocin (Bactroban Ointment) 0 gm TOP BID [facility] Last Admin: 08/09/18 09:52 Dose: 1 applic Naproxen (Anaprox Ds) 550 mg PO Q12H PRN PRN Reason: Pain, moderate (4-7) Last Admin: 08/09/18 11:31 Dose: 550 mg Oxycodone HCl (Oxycodone Immediate Release Tab) 20 mg PO Q12 PRN PRN Reason: Pain, severe (8-10) Stop: 08/11/18 13:18 Last Admin: 08/09/18 13:30 Dose: 20 mg Pantoprazole Sodium (Protonix Ec Tab) 40 mg PO DAILY [facility] Last Admin: 08/09/18 09:42 Dose: 40 mg Tamsulosin HCl (Flomax) 0.4 mg PO BID [facility] Last Admin: 08/09/18 09:42 Dose: 0.4 mg - Labs Labs: 08/09/18 07:17 08/09/18 07:17 PT 15.6 SECONDS (9.7-12.2) H 07/21/18 20:28 INR 1.4 07/21/18 20:28 APTT 34 SECONDS (21-34) 07/21/18 20:28 Attending/Attestation - Attestation I have personally seen and examined this patient.: Yes I have fully participated in the care of the patient.: Yes I have reviewed all pertinent clinical information, including history, physical exam and plan: Yes Notes (Text): 08/09/18 15:32 Medical attending: Patient was seen and examined by me, reviewed the above note by medical surgical tech and agree with the above. The patient was not in any acute distress we saw him. As previously mentioned, he remains on IV antibiotics at this time today he reported that he is still having ongoing pain. Yesterday we had started him on long-acting OxyContin twice a day. We slightly increased the dose today as well Galen Alston
--- NOTE | 2018-08-10 01:31 | CP.PCM.PN ---
<Mckenna qAuino - Last Filed: 08/10/18 01:29> Subjective - Date & Time of Evaluation Date of Evaluation: 08/10/18 Time of Evaluation: :29 - Subjective Subjective: Medicine Progress Note Night Float Patient seen and examined at bedside. Patient been complaining of back pain and also would like the nurse to clean his bandages on his face. Otherwise patient without other complaints. Denies fever, chills, sweats, nausea, vomiting, diarrhea, abdominal pain. Objective - Vital Signs/Intake and Output Vital Signs (last 24 hours): Temp Pulse Resp BP Pulse Ox 97.9 F 77 20 131/70 99 08/09/18 23:21 08/09/18 23:21 08/09/18 23:21 08/09/18 23:21 08/09/18 23:21 Intake and Output: 08/09/18 08/10/18 18:59 06:59 Intake Total 470 Output Total 450 Balance 20 - Medications Medications: Current Medications Acetaminophen (Tylenol 325mg Tab) 650 mg PO Q6 PRN PRN Reason: Fever >100.4 or Pain Last Admin: 08/07/18 11:22 Dose: 650 mg Amlodipine Besylate (Norvasc) 10 mg PO DAILY [facility] Last Admin: 08/09/18 09:42 Dose: 10 mg Aspirin (Ecotrin) 81 mg PO DAILY [facility] Last Admin: 08/09/18 09:41 Dose: 81 mg Dextrose (Dextrose 50% Inj) 0 ml IV STAT PRN; Protocol PRN Reason: Hypoglycemia Protocol Last Admin: 07/22/18 11:53 Dose: 50 ml Dextrose (Glutose 15) 0 gm PO ONCE PRN; Protocol PRN Reason: Hypoglycemia Protocol Docusate Sodium (Colace) 100 mg PO BID [facility] Last Admin: 08/09/18 17:37 Dose: 100 mg Enalapril Maleate (Vasotec) 30 mg PO DAILY [facility] Last Admin: 08/09/18 09:40 Dose: 30 mg Finasteride (Proscar) 5 mg PO DAILY [facility] Last Admin: 08/09/18 09:41 Dose: 5 mg Gabapentin (Neurontin) 100 mg PO TID [facility] Last Admin: 08/09/18 17:37 Dose: 100 mg Glucagon (Glucagen Diagnostic Kit) 0 mg IM STAT PRN; Protocol PRN Reason: Hypoglycemia Protocol Cefazolin Sodium 2,000 mg/ (Sodium Chloride) 50 mls @ 100 mls/hr IVPB Q8H [facility]; Protocol Last Admin: 08/09/18 19:34 Dose: 100 mls/hr Insulin Glargine (Lantus) 25 unit SC DAILY [facility] Last Admin: 08/09/18 09:46 Dose: 25 unit Insulin Human Regular (Novolin R) 0 unit SC ACHS [facility]; Protocol Last Admin: 08/09/18 21:41 Dose: Not Given Lactobacillus Acidophilus (Bacid Acidophilus) 1 cap PO BID [facility] Last Admin: 08/09/18 17:37 Dose: 1 cap Lidocaine (Lidoderm) 1 ea TD DAILY [facility] Last Admin: 08/09/18 10:14 Dose: 1 ea Metoprolol Succinate (Toprol Xl) 50 mg PO DAILY [facility] Last Admin: 08/09/18 09:41 Dose: 50 mg Mupirocin (Bactroban Ointment) 0 gm TOP BID [facility] Last Admin: 08/09/18 21:43 Dose: 1 applic Naproxen (Anaprox Ds) 550 mg PO Q12H PRN PRN Reason: Pain, moderate (4-7) Last Admin: 08/09/18 11:31 Dose: 550 mg Oxycodone HCl (Oxycodone Immediate Release Tab) 20 mg PO Q12 PRN PRN Reason: Pain, severe (8-10) Stop: 08/11/18 13:18 Last Admin: 08/09/18 13:30 Dose: 20 mg Pantoprazole Sodium (Protonix Ec Tab) 40 mg PO DAILY [facility] Last Admin: 08/09/18 09:42 Dose: 40 mg Tamsulosin HCl (Flomax) 0.4 mg PO BID [facility] Last Admin: 08/09/18 17:37 Dose: 0.4 mg - Labs Labs: 08/09/18 07:17 08/09/18 07:17 PT 15.6 SECONDS (9.7-12.2) H 07/21/18 20:28 INR 1.4 07/21/18 20:28 APTT 34 SECONDS (21-34) 07/21/18 20:28 - Constitutional Appears: Well - Head Exam Head Exam: ATRAUMATIC, NORMAL INSPECTION - Eye Exam Eye Exam: EOMI, Normal appearance - ENT Exam Additional comments: left facial bandage c/d/i - Neck Exam Neck Exam: Normal Inspection - Respiratory Exam Respiratory Exam: Clear to Ausculation Bilateral, NORMAL BREATHING PATTERN - Cardiovascular Exam Cardiovascular Exam: REGULAR RHYTHM - GI/Abdominal Exam GI & Abdominal Exam: Soft, Normal Bowel Sounds. absent: Guarding, Rigid - Neurological Exam Neurological Exam: Alert, Awake. absent: Normal Gait (Patient w/ b/l BKA, unable to ambulate) - Psychiatric Exam Psychiatric exam: Normal Affect, Normal Mood - Skin Skin Exam: Dry, Intact, Normal Color, Warm Assessment and Plan - Assessment and Plan (Free Text) Assessment: 53 yo male with a history of uncontrolled T2DM (s/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 Patient's blood cultures are positive for Staph aureus, currently being treated for bacteremia. Staph Aureus Bacteremia: - Blood Cx positive for Staph aureus - Rpt BCx negative - likely source: spinal abscess - ancef 2000mg IV q8h (07/25), as per ID - 6-8 week course antibiotic treatment, as per ID - Tmax 100.8 07/25 - Tylenol 650 mg PO Q6H PRN - Procal 14.74 - UA 07/23: negative LE, negative nitrates - Urine Cx: no growth - Echo: LV normal size and EF. LA mildly dilated. Mild TR. - Cardio consulted, Dr. 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 Fragoso - psoas collection and spinal abscess too small to dr cunha - NeuroSx consulted, Dr. Olivia - no intervention at this time HTN - patient persistently hypertensive - ASA 81 mg PO daily - Enalapril 30 mg PO daily - Metoprolol 50 mg PO daily - norvasc 5mg PO daily CAP - CXR 08/06: no active disease - CT A/P: LLL consolidation vs atelectasis - ancef 2000mg IV q8h (07/25) Urinary Retention - CT A/P: bladder wall thickening (cystitis), b/l renal parenchymal high density may be underlying metabolic disorder - I/Os - sagastume catheter (07/27) - flomax 0.4mg PO BID - finasteride 5mg PO daily - Urology consulted: Titi Kam - maintain sagastume Unresponsiveness - resolved, pt AAOx3 - Code stroke - EEG: nonspecific abnormalities, no seizures noted - CT head: no acute findings - CTA head and neck: no significant stenoses or abnormalities - PRL wnl (12.9) - Gabapentin 100 mg PO TID - Neurology consulted: Manda - no need for anticonvulsant at this time DM type 2 - A1c 8.9 - medium dose Novolin R ISS - lantus 25u SC daily - Hypoglycemia protocol - Accuchecks ACHS Ppx: DVT: Heparin 5000 units Q12H GI: Protonix 40 mg PO daily PT/OT: GARRETT Dispo: pt without insurance and undocumented citizen, pending medicaid acceptance. Likely to stay for duration of antibiotic tx course. <Galen Alston - Last Filed: 08/10/18 11:38> Objective - Vital Signs/Intake and Output Vital Signs (last 24 hours): Temp Pulse Resp BP Pulse Ox 97.9 F 80 20 148/73 96 08/10/18 08:18 08/10/18 08:18 08/10/18 08:18 08/10/18 10:27 08/10/18 08:18 Intake and Output: 08/10/18 08/10/18 06:59 18:59 Intake Total 720 Output Total 950 Balance -230 - Medications Medications: Current Medications Acetaminophen (Tylenol 325mg Tab) 650 mg PO Q6 PRN PRN Reason: Fever >100.4 or Pain Last Admin: 08/07/18 11:22 Dose: 650 mg Amlodipine Besylate (Norvasc) 10 mg PO DAILY [facility] Last Admin: 08/10/18 10:27 Dose: 10 mg Aspirin (Ecotrin) 81 mg PO DAILY [facility] Last Admin: 08/10/18 10:26 Dose: 81 mg Dextrose (Dextrose 50% Inj) 0 ml IV STAT PRN; Protocol PRN Reason: Hypoglycemia Protocol Last Admin: 07/22/18 11:53 Dose: 50 ml Dextrose (Glutose 15) 0 gm PO ONCE PRN; Protocol PRN Reason: Hypoglycemia Protocol Docusate Sodium (Colace) 100 mg PO BID [facility] Last Admin: 08/10/18 10:26 Dose: 100 mg Enalapril Maleate (Vasotec) 30 mg PO DAILY [facility] Last Admin: 08/10/18 10:27 Dose: 30 mg Finasteride (Proscar) 5 mg PO DAILY [facility] Last Admin: 08/10/18 10:26 Dose: 5 mg Gabapentin (Neurontin) 100 mg PO TID [facility] Last Admin: 08/10/18 10:26 Dose: 100 mg Glucagon (Glucagen Diagnostic Kit) 0 mg IM STAT PRN; Protocol PRN Reason: Hypoglycemia Protocol Cefazolin Sodium 2,000 mg/ (Sodium Chloride) 50 mls @ 100 mls/hr IVPB Q8H [facility]; Protocol Last Admin: 08/10/18 10:28 Dose: 100 mls/hr Insulin Glargine (Lantus) 25 unit SC DAILY [facility] Last Admin: 08/10/18 10:29 Dose: 25 unit Insulin Human Regular (Novolin R) 0 unit SC ACHS [facility]; Protocol Last Admin: 08/10/18 11:04 Dose: 4 units Lactobacillus Acidophilus (Bacid Acidophilus) 1 cap PO BID [facility] Last Admin: 08/10/18 10:26 Dose: 1 cap Lidocaine (Lidoderm) 1 ea TD DAILY [facility] Last Admin: 08/10/18 10:28 Dose: 1 ea Metoprolol Succinate (Toprol Xl) 50 mg PO DAILY [facility] Last Admin: 08/10/18 10:26 Dose: 50 mg Mupirocin (Bactroban Ointment) 0 gm TOP BID [facility] Last Admin: 08/10/18 10:25 Dose: 1 applic Naproxen (Anaprox Ds) 550 mg PO Q12H PRN PRN Reason: Pain, moderate (4-7) Last Admin: 08/10/18 06:00 Dose: 550 mg Oxycodone HCl (Oxycodone Immediate Release Tab) 20 mg PO Q12 PRN PRN Reason: Pain, severe (8-10) Stop: 08/11/18 13:18 Last Admin: 08/10/18 10:44 Dose: 20 mg Pantoprazole Sodium (Protonix Ec Tab) 40 mg PO DAILY [facility] Last Admin: 08/10/18 10:26 Dose: 40 mg Tamsulosin HCl (Flomax) 0.4 mg PO BID [facility] Last Admin: 08/10/18 10:26 Dose: 0.4 mg - Labs Labs: 08/09/18 07:17 08/10/18 06:19 PT 15.6 SECONDS (9.7-12.2) H 07/21/18 20:28 INR 1.4 07/21/18 20:28 APTT 34 SECONDS (21-34) 07/21/18 20:28 Attending/Attestation - Attestation I have personally seen and examined this patient.: Yes I have fully participated in the care of the patient.: Yes I have reviewed all pertinent clinical information, including history, physical exam and plan: Yes Notes (Text): 08/10/18 11:35 Medical attending: Patient was seen and examined by me. Agree with the above note by the resident The patient was not in any acute distress when I came and saw patient With help of tranlator he reported he still had pain but that it was less than before. Yesterday patient was started on long acting oxycontin and we explained to him that we will come by to see patient again tommorow and if neccessary increase He remains on IV abx at this time Galen Alston
[2018-08-10] MEDS: Naproxen 550 mg Tab PO PRN ×2 (06:00→23:50)
[2018-08-10 06:55] LABS: ALB/GLOB RATIO 0.7 (1.0-2.1); ALBUMIN 2.9 g/dL (3.5-5.0); ALT/SGPT 8 U/L (21-72); AST/SGOT 16 U/L (17-59); BLOOD UREA NITROGEN 23 mg/dL (9-20); CALCIUM 8.5 mg/dl (8.6-10.4); GFR NON-AFRICAN AMERICAN > 60
[2018-08-10] MEDS: (Novolin R) Insulin Human Regular 100 units/ml vial SC SCH ×4 (07:30→22:00)
[2018-08-10] MEDS: Lactobacillus Acidophilus 500 MU Cap PO SCH ×2 (10:26→17:38)
[2018-08-10] MEDS: Pantoprazole 40 mg EC Tab PO SCH (10:26)
[2018-08-10] MEDS: Metoprolol Succinate 50 mg XL Tab PO SCH (10:26)
[2018-08-10] MEDS: Lidocaine 5% Patch TD SCH (10:28)
[2018-08-10] MEDS: (Lantus) Insulin Glargine, Recombinant SC SCH (10:29)
[2018-08-10] MEDS: oxyCODONE 10 mg Immediate Release Tab PO PRN (10:44)
[2018-08-11] MEDS: (Novolin R) Insulin Human Regular 100 units/ml vial SC SCH ×4 (07:30→21:46)
[2018-08-11 08:28] LABS: ALB/GLOB RATIO 0.7 (1.0-2.1); ALBUMIN 2.7 g/dL (3.5-5.0); ALT/SGPT 10 U/L (21-72); AST/SGOT 17 U/L (17-59); BLOOD UREA NITROGEN 24 mg/dL (9-20); CALCIUM 8.5 mg/dl (8.6-10.4); GFR NON-AFRICAN AMERICAN > 60
--- NOTE | 2018-08-11 09:13 | CP.PCM.PN ---
<Mckenna Aquino - Last Filed: 08/11/18 09:11> Subjective - Date & Time of Evaluation Date of Evaluation: 08/11/18 Time of Evaluation: 09:11 - Subjective Subjective: Patient seen and examined at bedside. Patient states he had his face cleaned and bandaged. He has no acute complaints. denies sob, cp, fever/chills, diarrhea. RN reports no events. Objective - Vital Signs/Intake and Output Vital Signs (last 24 hours): Temp Pulse Resp BP Pulse Ox 98.6 F 84 20 145/71 96 08/11/18 08:14 08/11/18 08:14 08/11/18 08:14 08/11/18 08:14 08/11/18 08:14 Intake and Output: 08/11/18 08/11/18 06:59 18:59 Intake Total 600 Output Total 850 Balance -250 - Medications Medications: Current Medications Acetaminophen (Tylenol 325mg Tab) 650 mg PO Q6 PRN PRN Reason: Fever >100.4 or Pain Last Admin: 08/07/18 11:22 Dose: 650 mg Amlodipine Besylate (Norvasc) 10 mg PO DAILY [facility] Last Admin: 08/10/18 10:27 Dose: 10 mg Aspirin (Ecotrin) 81 mg PO DAILY [facility] Last Admin: 08/10/18 10:26 Dose: 81 mg Dextrose (Dextrose 50% Inj) 0 ml IV STAT PRN; Protocol PRN Reason: Hypoglycemia Protocol Last Admin: 07/22/18 11:53 Dose: 50 ml Dextrose (Glutose 15) 0 gm PO ONCE PRN; Protocol PRN Reason: Hypoglycemia Protocol Docusate Sodium (Colace) 100 mg PO BID [facility] Last Admin: 08/10/18 17:38 Dose: 100 mg Enalapril Maleate (Vasotec) 30 mg PO DAILY [facility] Last Admin: 08/10/18 10:27 Dose: 30 mg Finasteride (Proscar) 5 mg PO DAILY [facility] Last Admin: 08/10/18 10:26 Dose: 5 mg Gabapentin (Neurontin) 100 mg PO TID [facility] Last Admin: 08/10/18 17:38 Dose: 100 mg Glucagon (Glucagen Diagnostic Kit) 0 mg IM STAT PRN; Protocol PRN Reason: Hypoglycemia Protocol Cefazolin Sodium 2,000 mg/ (Sodium Chloride) 50 mls @ 100 mls/hr IVPB Q8H [facility]; Protocol Last Admin: 08/11/18 02:57 Dose: 100 mls/hr Insulin Glargine (Lantus) 25 unit SC DAILY [facility] Last Admin: 08/10/18 10:29 Dose: 25 unit Insulin Human Regular (Novolin R) 0 unit SC ACHS [facility]; Protocol Last Admin: 08/10/18 17:38 Dose: 4 units Lactobacillus Acidophilus (Bacid Acidophilus) 1 cap PO BID [facility] Last Admin: 08/10/18 17:38 Dose: 1 cap Lidocaine (Lidoderm) 1 ea TD DAILY [facility] Last Admin: 08/10/18 10:28 Dose: 1 ea Metoprolol Succinate (Toprol Xl) 50 mg PO DAILY [facility] Last Admin: 08/10/18 10:26 Dose: 50 mg Mupirocin (Bactroban Ointment) 0 gm TOP BID [facility] Last Admin: 08/10/18 22:00 Dose: 1 applic Naproxen (Anaprox Ds) 550 mg PO Q12H PRN PRN Reason: Pain, moderate (4-7) Last Admin: 08/10/18 23:50 Dose: 550 mg Oxycodone HCl (Oxycodone Immediate Release Tab) 20 mg PO Q12 PRN PRN Reason: Pain, severe (8-10) Stop: 08/11/18 13:18 Last Admin: 08/10/18 10:44 Dose: 20 mg Pantoprazole Sodium (Protonix Ec Tab) 40 mg PO DAILY [facility] Last Admin: 08/10/18 10:26 Dose: 40 mg Tamsulosin HCl (Flomax) 0.4 mg PO BID [facility] Last Admin: 08/10/18 17:38 Dose: 0.4 mg - Labs Labs: 08/09/18 07:17 08/11/18 07:46 PT 15.6 SECONDS (9.7-12.2) H 07/21/18 20:28 INR 1.4 07/21/18 20:28 APTT 34 SECONDS (21-34) 07/21/18 20:28 - Constitutional Appears: Well, Non-toxic - Eye Exam Eye Exam: EOMI, Normal appearance - ENT Exam Additional comments: bandage on left side of face c/d/i - Neck Exam Neck Exam: Normal Inspection - Respiratory Exam Respiratory Exam: Clear to Ausculation Bilateral, NORMAL BREATHING PATTERN - Cardiovascular Exam Cardiovascular Exam: REGULAR RHYTHM - GI/Abdominal Exam GI & Abdominal Exam: Soft, Normal Bowel Sounds - Extremities Exam Additional comments: b/l BKA - Neurological Exam Neurological Exam: Alert, Awake, Oriented x3. absent: Normal Gait - Psychiatric Exam Psychiatric exam: Normal Affect, Normal Mood - Skin Skin Exam: Dry, Intact, Normal Color, Warm Assessment and Plan - Assessment and Plan (Free Text) Assessment: 53 yo male with a history of uncontrolled T2DM (s/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 Patient's blood cultures are positive for Staph aureus, currently being treated for bacteremia. Staph Aureus Bacteremia: - Blood Cx positive for Staph aureus - Rpt BCx negative - likely source: spinal abscess - ancef 2000mg IV q8h (07/25), as per ID - 6-8 week course antibiotic treatment, as per ID - Tmax 100.8 07/25 - Tylenol 650 mg PO Q6H PRN - Procal 14.74 - UA 07/23: negative LE, negative nitrates - Urine Cx: no growth - Echo: LV normal size and EF. LA mildly dilated. Mild TR. - Cardio consulted, Dr. 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 Fragoso - psoas collection and spinal abscess too small to drain - NeuroSx consulted, Dr. Olivia - no intervention at this time HTN - patient persistently hypertensive - ASA 81 mg PO daily - Enalapril 30 mg PO daily - Metoprolol 50 mg PO daily - norvasc 5mg PO daily CAP - CXR 08/06: no active disease - CT A/P: LLL consolidation vs atelectasis - ancef 2000mg IV q8h (07/25) Urinary Retention - CT A/P: bladder wall thickening (cystitis), b/l renal parenchymal high density may be underlying metabolic disorder - I/Os - sagastume catheter (07/27) - flomax 0.4mg PO BID - finasteride 5mg PO daily - Urology consulted: Titi Kam - maintain sagastume Unresponsiveness - resolved, pt AAOx3 - Code stroke - EEG: nonspecific abnormalities, no seizures noted - CT head: no acute findings - CTA head and neck: no significant stenoses or abnormalities - PRL wnl (12.9) - Gabapentin 100 mg PO TID - Neurology consulted: Manda - no need for anticonvulsant at this time DM type 2 - A1c 8.9 - medium dose Novolin R ISS - lantus 25u SC daily - Hypoglycemia protocol - Accuchecks ACHS Ppx: DVT: Heparin 5000 units Q12H GI: Protonix 40 mg PO daily PT/OT: [facility] Dispo: pt without insurance and undocumented citizen, pending medicaid acceptance. Likely to stay for duration of antibiotic tx course. <Galen Alston H - Last Filed: 08/11/18 14:08> Objective - Vital Signs/Intake and Output Vital Signs (last 24 hours): Temp Pulse Resp BP Pulse Ox 98.6 F 84 20 145/71 96 08/11/18 08:14 08/11/18 08:14 08/11/18 08:14 08/11/18 09:49 08/11/18 08:14 Intake and Output: 08/11/18 08/11/18 06:59 18:59 Intake Total 600 Output Total 850 Balance -250 - Medications Medications: Current Medications Acetaminophen (Tylenol 325mg Tab) 650 mg PO Q6 PRN PRN Reason: Fever >100.4 or Pain Last Admin: 08/07/18 11:22 Dose: 650 mg Amlodipine Besylate (Norvasc) 10 mg PO DAILY [facility] Last Admin: 08/11/18 09:50 Dose: 10 mg Aspirin (Ecotrin) 81 mg PO DAILY [facility] Last Admin: 08/11/18 09:50 Dose: 81 mg Dextrose (Dextrose 50% Inj) 0 ml IV STAT PRN; Protocol PRN Reason: Hypoglycemia Protocol Last Admin: 07/22/18 11:53 Dose: 50 ml Dextrose (Glutose 15) 0 gm PO ONCE PRN; Protocol PRN Reason: Hypoglycemia Protocol Docusate Sodium (Colace) 100 mg PO BID [facility] Last Admin: 08/11/18 09:50 Dose: 100 mg Enalapril Maleate (Vasotec) 30 mg PO DAILY [facility] Last Admin: 08/11/18 09:49 Dose: 30 mg Finasteride (Proscar) 5 mg PO DAILY [facility] Last Admin: 08/11/18 09:50 Dose: 5 mg Gabapentin (Neurontin) 100 mg PO TID [facility] Last Admin: 08/11/18 09:50 Dose: 100 mg Glucagon (Glucagen Diagnostic Kit) 0 mg IM STAT PRN; Protocol PRN Reason: Hypoglycemia Protocol Cefazolin Sodium 2,000 mg/ (Sodium Chloride) 50 mls @ 100 mls/hr IVPB Q8H [facility]; Protocol Last Admin: 08/11/18 10:02 Dose: 100 mls/hr Insulin Glargine (Lantus) 25 unit SC DAILY [facility] Last Admin: 08/11/18 09:52 Dose: 25 unit Insulin Human Regular (Novolin R) 0 unit SC ACHS [facility]; Protocol Last Admin: 08/11/18 12:16 Dose: 3 units Lactobacillus Acidophilus (Bacid Acidophilus) 1 cap PO BID [facility] Last Admin: 08/11/18 09:50 Dose: 1 cap Lidocaine (Lidoderm) 1 ea TD DAILY [facility] Last Admin: 08/11/18 09:50 Dose: 1 ea Metoprolol Succinate (Toprol Xl) 50 mg PO DAILY [facility] Last Admin: 08/11/18 09:50 Dose: 50 mg Mupirocin (Bactroban Ointment) 0 gm TOP BID [facility] Last Admin: 08/11/18 10:03 Dose: 1 applic Naproxen (Anaprox Ds) 550 mg PO Q12H PRN PRN Reason: Pain, moderate (4-7) Last Admin: 08/10/18 23:50 Dose: 550 mg Pantoprazole Sodium (Protonix Ec Tab) 40 mg PO DAILY [facility] Last Admin: 08/11/18 09:50 Dose: 40 mg Tamsulosin HCl (Flomax) 0.4 mg PO BID [facility] Last Admin: 08/11/18 09:50 Dose: 0.4 mg - Labs Labs: 08/09/18 07:17 08/11/18 07:46 PT 15.6 SECONDS (9.7-12.2) H 07/21/18 20:28 INR 1.4 07/21/18 20:28 APTT 34 SECONDS (21-34) 07/21/18 20:28 Attending/Attestation - Attestation I have personally seen and examined this patient.: Yes I have fully participated in the care of the patient.: Yes I have reviewed all pertinent clinical information, including history, physical exam and plan: Yes Notes (Text): 08/11/18 14:07 Medical attending: Patient was seen and examined by me. Reviewed the above note by the resident and agree with the above note. The patient was sleeping, not in any acute distress when I came and saw. At this time he remains on the IV abx. Yesterday we increased his long acting pain medication for pain control. Galen Alston
[2018-08-11] MEDS: Lidocaine 5% Patch TD SCH (09:50)
[2018-08-11] MEDS: Lactobacillus Acidophilus 500 MU Cap PO SCH ×2 (09:50→17:39)
[2018-08-11] MEDS: Metoprolol Succinate 50 mg XL Tab PO SCH (09:50)
[2018-08-11] MEDS: Pantoprazole 40 mg EC Tab PO SCH (09:50)
[2018-08-11] MEDS: (Lantus) Insulin Glargine, Recombinant SC SCH (09:52)
[2018-08-11] MEDS: Naproxen 550 mg Tab PO PRN (17:39)
[2018-08-12] MEDS: Naproxen 550 mg Tab PO PRN ×2 (05:55→17:55)
[2018-08-12] MEDS: (Novolin R) Insulin Human Regular 100 units/ml vial SC SCH ×4 (07:44→21:28)
--- NOTE | 2018-08-12 07:48 | CP.PCM.PN ---
<Rodriguez An M - Last Filed: 08/12/18 14:29> Subjective - Date & Time of Evaluation Date of Evaluation: 08/12/18 Time of Evaluation: 08:20 - Subjective Subjective: PGY1 Medicine note for Dr. Curiel. Patient seen and examined at bedside. No overnight events reported. Patient lying in bed comfortably sleeping. Upon awaking patient, patient persistently is repeating he is having back pain and that the current pain regime is not helping. Additionally patient has a large bottle of cranberry juice at bedside, and is informed that due to his diabetes, it is not good for him. Aside from the back pain, patient has no compaints. Patient denies chest pain, SOB, abdominal pain, nausea, vomiting. Objective - Vital Signs/Intake and Output Vital Signs (last 24 hours): Temp Pulse Resp BP Pulse Ox 96.4 F L 80 18 154/76 H 98 08/12/18 00:00 08/12/18 00:00 08/12/18 00:00 08/12/18 00:00 08/12/18 00:00 Intake and Output: 08/12/18 08/12/18 06:59 18:59 Intake Total 830 Output Total 2000 Balance -1170 - Medications Medications: Current Medications Acetaminophen (Tylenol 325mg Tab) 650 mg PO Q6 PRN PRN Reason: Fever >100.4 or Pain Last Admin: 08/07/18 11:22 Dose: 650 mg Amlodipine Besylate (Norvasc) 10 mg PO DAILY [facility] Last Admin: 08/11/18 09:50 Dose: 10 mg Aspirin (Ecotrin) 81 mg PO DAILY [facility] Last Admin: 08/11/18 09:50 Dose: 81 mg Dextrose (Dextrose 50% Inj) 0 ml IV STAT PRN; Protocol PRN Reason: Hypoglycemia Protocol Last Admin: 07/22/18 11:53 Dose: 50 ml Dextrose (Glutose 15) 0 gm PO ONCE PRN; Protocol PRN Reason: Hypoglycemia Protocol Docusate Sodium (Colace) 100 mg PO BID [facility] Last Admin: 08/11/18 17:39 Dose: 100 mg Enalapril Maleate (Vasotec) 30 mg PO DAILY [facility] Last Admin: 08/11/18 09:49 Dose: 30 mg Finasteride (Proscar) 5 mg PO DAILY [facility] Last Admin: 11/18/18 09:50 Dose: 5 mg Gabapentin (Neurontin) 100 mg PO TID [facility] Last Admin: 08/11/18 17:39 Dose: 100 mg Glucagon (Glucagen Diagnostic Kit) 0 mg IM STAT PRN; Protocol PRN Reason: Hypoglycemia Protocol Cefazolin Sodium 2,000 mg/ (Sodium Chloride) 50 mls @ 100 mls/hr IVPB Q8H [facility]; Protocol Last Admin: 08/12/18 03:01 Dose: 100 mls/hr Insulin Glargine (Lantus) 25 unit SC DAILY [facility] Last Admin: 08/11/18 09:52 Dose: 25 unit Insulin Human Regular (Novolin R) 0 unit SC ACHS [facility]; Protocol Last Admin: 08/12/18 07:44 Dose: 3 units Lactobacillus Acidophilus (Bacid Acidophilus) 1 cap PO BID [facility] Last Admin: 08/11/18 17:39 Dose: 1 cap Lidocaine (Lidoderm) 1 ea TD DAILY [facility] Last Admin: 08/11/18 09:50 Dose: 1 ea Metoprolol Succinate (Toprol Xl) 50 mg PO DAILY [facility] Last Admin: 08/11/18 09:50 Dose: 50 mg Mupirocin (Bactroban Ointment) 0 gm TOP BID [facility] Last Admin: 08/11/18 21:48 Dose: 1 applic Naproxen (Anaprox Ds) 550 mg PO Q12H PRN PRN Reason: Pain, moderate (4-7) Last Admin: 08/12/18 05:55 Dose: 550 mg Pantoprazole Sodium (Protonix Ec Tab) 40 mg PO DAILY [facility] Last Admin: 08/11/18 09:50 Dose: 40 mg Tamsulosin HCl (Flomax) 0.4 mg PO BID [facility] Last Admin: 08/11/18 17:39 Dose: 0.4 mg - Labs Labs: 08/09/18 07:17 08/11/18 07:46 PT 15.6 SECONDS (9.7-12.2) H 07/21/18 20:28 INR 1.4 07/21/18 20:28 APTT 34 SECONDS (21-34) 07/21/18 20:28 - Constitutional Appears: Non-toxic, No Acute Distress - Head Exam Additional comments: ulcerative lesion on the L nare and L malar region, erythema with slight granulation tissue. no drainage noted. cartilage visible. - Eye Exam Eye Exam: EOMI, Normal appearance - ENT Exam ENT Exam: Mucous Membranes Moist - Respiratory Exam Respiratory Exam: Clear to Ausculation Bilateral, NORMAL BREATHING PATTERN. absent: Rales, Rhonchi, Wheezes - Cardiovascular Exam Cardiovascular Exam: +S1, +S2. absent: Murmur - GI/Abdominal Exam GI & Abdominal Exam: Soft, Normal Bowel Sounds. absent: Guarding, Rigid - Extremities Exam Additional comments: B/L BKA - Back Exam Back Exam: CVA tenderness (L), CVA tenderness (R) Additional comments: back: tenderness to palpation paraspinal lumbar region. ROM intact no Sacral ulcers present - Neurological Exam Neurological Exam: Alert, Awake, Oriented x3 - Psychiatric Exam Psychiatric exam: Normal Affect, Normal Mood - Skin Skin Exam: Dry, Normal Color, Warm Assessment and Plan - Assessment and Plan (Free Text) Assessment: 53 yo male with a history of uncontrolled T2DM (s/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 Patient's blood cultures are positive for Staph aureus, currently being treated for bacteremia & discitis & spinal abscess: Plan: Epidural Abscess - MRI L-spine: suspicious for discitis osteomyelitis involving L4-5 intervetebral disc w/ anterior epidural abscess, R iliopsoas fluid collection 1.5x1.9cm - pt reports 3 month history, with radiation and urinary retention - Back pain likely due to this, will hold oxycodone as patient was sleeping peacefully at this time - naproxen 550mg PO q12h PRN - ancef 2000mg IV q8h (07/25) - F/u IR, Dr. Fragoso recs: - psoas collection and spinal abscess too small to drain - F/u NeuroSx, Dr. Olivia recs: - no intervention at this time - F/u ID, Dr. Garcia recs: - 6-8 weeks of abx of ancef 2000mg Q8H L Maxillofacial Ulcer - CT 07/25: soft tissue swelling, no osteomyelitis or drainable fluid - Covered w/ ancef 2000mg IV q8h (07/25) for epidural abscess - Will be on 6-8 week course antibiotic treatment, as per ID for epidural abscess - mupirocin 2g top BID - wound care consulted - Pt following up with plastic surgeon at [facility] sep 04 Urinary Retention - CT A/P: bladder wall thickening (cystitis), b/l renal parenchymal high density may be underlying metabolic disorder - I/Os - sagastume catheter (07/27) - flomax 0.4mg PO BID - finasteride 5mg PO daily - Urology consulted: Titi Kam - maintain sagastume until outpatient follow - Will attempt voiding trial on 08/13 as pt has had sagastume for > 1 week and likely will remain hospitalized until placement HTN - patient initially HTN in 160s to 170s, no 130s to 150s - ASA 81 mg PO daily - Enalapril 30 mg PO daily - Metoprolol succinate 50 mg PO daily - Norvasc 10mg PO daily DM type 2 - A1c 8.9 - medium dose Novolin R ISS - lantus 25u SC daily - Hypoglycemia protocol - Accuchecks ACHS CAP Resolved - CXR 08/06: no active disease - CT A/P: LLL consolidation vs atelectasis - ancef 2000mg IV q8h (07/25) Staph Aureus Bacteremia: Resolved - Initially: Blood Cx positive for Staph aureus (07/21); F/u Blood Cx negative 07/28 X 5 days - Urine Cx: no growth - Procal 14.74, Tmax 100.8 (08/01) - Tylenol 650 mg PO Q6H PRN - Echo: LV normal size and EF. LA mildly dilated. Mild TR - F/u cardio, Dr. Ge recs: - consider KASH if BCx+ in future, signed off - F/u ID, Dr. Garcia recs: - 6-8 week course antibiotic treatment, as per ID - ancef 2000mg IV q8h (07/25), as per ID - likely source: spinal abscess Unresponsiveness Resolved AAOx3 Previously - Code stroke - EEG: nonspecific abnormalities, no seizures noted - CT head: no acute findings - CTA head and neck: no significant stenoses or abnormalities - PRL wnl (12.9) - Gabapentin 100 mg PO TID - Neurology consulted: Manda - no need for anticonvulsant at this time Ppx: DVT: Heparin 5000 units Q12H GI: Protonix 40 mg PO daily Labs: CBC/ CMP Q2D Mag/Phs Q4D PT/OT: [facility] Dispo: pt without insurance and undocumented citizen, pending medicaid acceptance. Likely to stay for duration of antibiotic tx course. D/w Dr. Veena An, PGY1 <Mila Curiel - Last Filed: 08/12/18 17:04> Objective - Vital Signs/Intake and Output Vital Signs (last 24 hours): Temp Pulse Resp BP Pulse Ox 98.3 F 76 20 148/76 95 08/12/18 16:12 08/12/18 16:12 08/12/18 16:12 08/12/18 16:12 08/12/18 16:12 Intake and Output: 08/12/18 08/12/18 06:59 18:59 Intake Total 830 Output Total 2000 800 Balance -1170 -800 - Medications Medications: Current Medications Acetaminophen (Tylenol 325mg Tab) 650 mg PO Q6 PRN PRN Reason: Fever >100.4 or Pain Last Admin: 08/07/18 11:22 Dose: 650 mg Amlodipine Besylate (Norvasc) 10 mg PO DAILY [facility] Last Admin: 08/12/18 10:11 Dose: 10 mg Aspirin (Ecotrin) 81 mg PO DAILY [facility] Last Admin: 08/12/18 10:11 Dose: 81 mg Dextrose (Dextrose 50% Inj) 0 ml IV STAT PRN; Protocol PRN Reason: Hypoglycemia Protocol Last Admin: 07/22/18 11:53 Dose: 50 ml Dextrose (Glutose 15) 0 gm PO ONCE PRN; Protocol PRN Reason: Hypoglycemia Protocol Docusate Sodium (Colace) 100 mg PO BID [facility] Last Admin: 08/12/18 10:10 Dose: 100 mg Enalapril Maleate (Vasotec) 30 mg PO DAILY [facility] Last Admin: 08/12/18 10:10 Dose: 30 mg Finasteride (Proscar) 5 mg PO DAILY [facility] Last Admin: 08/12/18 10:11 Dose: 5 mg Gabapentin (Neurontin) 100 mg PO TID [facility] Last Admin: 08/12/18 13:42 Dose: 100 mg Glucagon (Glucagen Diagnostic Kit) 0 mg IM STAT PRN; Protocol PRN Reason: Hypoglycemia Protocol Heparin Sodium (Porcine) (Heparin) 5,000 units SC Q12 [facility] Cefazolin Sodium 2,000 mg/ (Sodium Chloride) 50 mls @ 100 mls/hr IVPB Q8H [facility]; Protocol Last Admin: 08/12/18 10:16 Dose: 100 mls/hr Insulin Glargine (Lantus) 25 unit SC DAILY [facility] Last Admin: 08/12/18 10:09 Dose: 25 unit Insulin Human Regular (Novolin R) 0 unit SC ACHS [facility]; Protocol Last Admin: 08/12/18 11:59 Dose: 3 units Lactobacillus Acidophilus (Bacid Acidophilus) 1 cap PO BID [facility] Last Admin: 08/12/18 10:10 Dose: 1 cap Lidocaine (Lidoderm) 1 ea TD DAILY [facility] Last Admin: 08/12/18 10:18 Dose: 1 ea Metoprolol Succinate (Toprol Xl) 50 mg PO DAILY [facility] Last Admin: 08/12/18 10:10 Dose: 50 mg Mupirocin (Bactroban Ointment) 0 gm TOP BID [facility] Last Admin: 08/12/18 10:11 Dose: 1 applic Naproxen (Anaprox Ds) 550 mg PO Q12H PRN PRN Reason: Pain, moderate (4-7) Last Admin: 08/12/18 05:55 Dose: 550 mg Pantoprazole Sodium (Protonix Ec Tab) 40 mg PO DAILY [facility] Last Admin: 08/12/18 10:10 Dose: 40 mg Tamsulosin HCl (Flomax) 0.4 mg PO BID [facility] Last Admin: 08/12/18 10:10 Dose: 0.4 mg - Labs Labs: 08/12/18 09:59 08/12/18 07:34 PT 15.6 SECONDS (9.7-12.2) H 07/21/18 20:28 INR 1.4 07/21/18 20:28 APTT 34 SECONDS (21-34) 07/21/18 20:28 Attending/Attestation - Attestation I have personally seen and examined this patient.: Yes I have fully participated in the care of the patient.: Yes I have reviewed all pertinent clinical information, including history, physical exam and plan: Yes Notes (Text): seen and examined,patient is sleeping comfortable nose wound /basal cell ca with little bleeding Has faley cath in place,voiding trial tomorrow continue ancef /total 6 weeks(started 07/25) Assessment and the plan discussed I agree with the resident's documentation
[2018-08-12 07:53] LABS: ALB/GLOB RATIO 0.7 (1.0-2.1); ALBUMIN 2.7 g/dL (3.5-5.0); ALT/SGPT 8 U/L (21-72); AST/SGOT 14 U/L (17-59); BLOOD UREA NITROGEN 23 mg/dL (9-20); CALCIUM 8.3 mg/dl (8.6-10.4); GFR NON-AFRICAN AMERICAN > 60
[2018-08-12 10:02] LABS: BASO # 0.1 K/uL (0.0-0.2); BASO % 0.6 % (0.0-2.0); EOS # 0.3 K/uL (0.0-0.7); EOS % 3.6 % (0.0-4.0); HEMOGLOBIN 8.1 g/dL (12.0-18.0); LYMPH # 1.8 K/uL (1.0-4.3); LYMPH % 18.5 % (20.0-40.0); MEAN CORPUSCULAR HEMOGLOBIN 28.6 pg (27.0-31.0); MEAN CORPUSCULAR HGB CONC 33.3 g/dL (33.0-37.0); MEAN PLATELET VOLUME 8.7 fL (7.2-11.7); MONO # 0.6 K/uL (0.0-0.8); MONO % 6.5 % (0.0-10.0); NEUT # 6.8 K/uL (1.8-7.0); NEUT % 70.8 % (50.0-75.0); RBC 2.82 Mil/uL (4.40-5.90); RED CELL DISTRIBUTION WIDTH 13.6 % (11.5-14.5); WHITE BLOOD COUNT 9.6 K/uL (4.8-10.8)
[2018-08-12] MEDS: (Lantus) Insulin Glargine, Recombinant SC SCH (10:09)
[2018-08-12] MEDS: Pantoprazole 40 mg EC Tab PO SCH (10:10)
[2018-08-12] MEDS: Lactobacillus Acidophilus 500 MU Cap PO SCH ×2 (10:10→17:44)
[2018-08-12] MEDS: Metoprolol Succinate 50 mg XL Tab PO SCH (10:10)
[2018-08-12] MEDS: Lidocaine 5% Patch TD SCH (10:18)
--- NOTE | 2018-08-13 07:05 | CP.PCM.PN ---
<Rodriguez An M - Last Filed: 08/13/18 18:22> Subjective - Date & Time of Evaluation Date of Evaluation: 08/13/18 Time of Evaluation: 07:50 - Subjective Subjective: PGY1 Medicine Progress note for Dr. Curiel. Patient seen and examined at bedside. No overnight events reported. Patient sitting in bed comfortably. Patient states he feels much better from yesterday. His states his pain in his back is minimal, and is worsened with motion. Patient still has sagastume in place and nursing staff will be informed for a voiding trial today. Patient denies chest pain, SOB, abdominal pain, nausea, vomiting. Patient again was making an attempt to drink juice. Encourage patient for less sugary alternatives in light of his diabetes. Objective - Vital Signs/Intake and Output Vital Signs (last 24 hours): Temp Pulse Resp BP Pulse Ox 97.9 F 79 20 156/73 H 97 08/13/18 00:00 08/13/18 00:00 08/13/18 00:00 08/13/18 00:00 08/13/18 00:00 Intake and Output: 08/13/18 08/13/18 06:59 18:59 Intake Total 720 Output Total 1700 Balance -980 - Medications Medications: Current Medications Acetaminophen (Tylenol 325mg Tab) 650 mg PO Q6 PRN PRN Reason: Fever >100.4 or Pain Last Admin: 08/07/18 11:22 Dose: 650 mg Amlodipine Besylate (Norvasc) 10 mg PO DAILY [facility] Last Admin: 08/12/18 10:11 Dose: 10 mg Aspirin (Ecotrin) 81 mg PO DAILY [facility] Last Admin: 08/12/18 10:11 Dose: 81 mg Dextrose (Dextrose 50% Inj) 0 ml IV STAT PRN; Protocol PRN Reason: Hypoglycemia Protocol Last Admin: 07/22/18 11:53 Dose: 50 ml Dextrose (Glutose 15) 0 gm PO ONCE PRN; Protocol PRN Reason: Hypoglycemia Protocol Docusate Sodium (Colace) 100 mg PO BID [facility] Last Admin: 08/12/18 17:44 Dose: 100 mg Enalapril Maleate (Vasotec) 30 mg PO DAILY [facility] Last Admin: 08/12/18 10:10 Dose: 30 mg Finasteride (Proscar) 5 mg PO DAILY [facility] Last Admin: 08/12/18 10:11 Dose: 5 mg Gabapentin (Neurontin) 100 mg PO TID [facility] Last Admin: 08/12/18 17:44 Dose: 100 mg Glucagon (Glucagen Diagnostic Kit) 0 mg IM STAT PRN; Protocol PRN Reason: Hypoglycemia Protocol Heparin Sodium (Porcine) (Heparin) 5,000 units SC Q12 [facility] Last Admin: 08/12/18 21:32 Dose: 5,000 units Cefazolin Sodium 2,000 mg/ (Sodium Chloride) 50 mls @ 100 mls/hr IVPB Q8H [facility]; Protocol Last Admin: 08/13/18 02:56 Dose: 100 mls/hr Insulin Glargine (Lantus) 25 unit SC DAILY [facility] Last Admin: 08/12/18 10:09 Dose: 25 unit Insulin Human Regular (Novolin R) 0 unit SC ACHS [facility]; Protocol Last Admin: 08/12/18 21:28 Dose: Not Given Lactobacillus Acidophilus (Bacid Acidophilus) 1 cap PO BID [facility] Last Admin: 08/12/18 17:44 Dose: 1 cap Lidocaine (Lidoderm) 1 ea TD DAILY [facility] Last Admin: 08/12/18 10:18 Dose: 1 ea Metoprolol Succinate (Toprol Xl) 50 mg PO DAILY [facility] Last Admin: 08/12/18 10:10 Dose: 50 mg Mupirocin (Bactroban Ointment) 0 gm TOP BID [facility] Last Admin: 08/12/18 18:10 Dose: 1 applic Naproxen (Anaprox Ds) 550 mg PO Q12H PRN PRN Reason: Pain, moderate (4-7) Last Admin: 08/12/18 17:55 Dose: 550 mg Pantoprazole Sodium (Protonix Ec Tab) 40 mg PO DAILY [facility] Last Admin: 08/12/18 10:10 Dose: 40 mg Tamsulosin HCl (Flomax) 0.4 mg PO BID [facility] Last Admin: 08/12/18 17:44 Dose: 0.4 mg - Labs Labs: 08/12/18 09:59 08/12/18 07:34 PT 15.6 SECONDS (9.7-12.2) H 07/21/18 20:28 INR 1.4 07/21/18 20:28 APTT 34 SECONDS (21-34) 07/21/18 20:28 - Constitutional Appears: Non-toxic, No Acute Distress - Eye Exam Eye Exam: Normal appearance - ENT Exam ENT Exam: Mucous Membranes Moist - Respiratory Exam Respiratory Exam: Clear to Ausculation Bilateral, NORMAL BREATHING PATTERN. absent: Rales, Rhonchi, Wheezes - Cardiovascular Exam Cardiovascular Exam: +S1, +S2. absent: Murmur - GI/Abdominal Exam GI & Abdominal Exam: Soft, Normal Bowel Sounds. absent: Firm, Guarding, Rigid - Extremities Exam Extremities Exam: Full ROM. absent: Pedal Edema Additional comments: Bilateral BKA Full ROM of upper extremities and upper portion of LE - Back Exam Back Exam: absent: CVA tenderness (L), CVA tenderness (R) - Neurological Exam Neurological Exam: Alert, Awake, Oriented x3 - Psychiatric Exam Psychiatric exam: Normal Affect, Normal Mood - Skin Skin Exam: Dry, Intact, Normal Color, Warm Assessment and Plan - Assessment and Plan (Free Text) Assessment: 53 yo male with a history of uncontrolled T2DM (s/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 Patient's blood cultures are positive for Staph aureus, currently being treated for bacteremia & discitis & spinal abscess: Plan: Urinary Retention - CT A/P: bladder wall thickening (cystitis), b/l renal parenchymal high density may be underlying metabolic disorder - I/Os - sagastume catheter (07/27) - flomax 0.4mg PO BID - finasteride 5mg PO daily - Urology consulted: Titi Kam - maintain sagastume until outpatient follow - Sagastume D/C'ed @ 10 AM on 08/13, bladder scan at 6pm, if >400 ml urine, reinsert sagastume; if < 300 ml will monitor Epidural Abscess - MRI L-spine: suspicious for discitis osteomyelitis involving L4-5 intervetebral disc w/ anterior epidural abscess, R iliopsoas fluid collection 1.5x1.9cm - pt reports 3 month history, with radiation and urinary retention - Back pain likely due to this, will hold oxycodone as patient was sleeping peacefully at this time - naproxen 550mg PO q12h PRN - ancef 2000mg IV q8h (07/25) - F/u IR, Dr. Fragoso recs: - psoas collection and spinal abscess too small to drain - F/u NeuroSx, Dr. Olivia recs: - no intervention at this time - F/u ID, Dr. Garcia recs: - 6-8 weeks of abx of ancef 2000mg Q8H; started 07/25/18 L Maxillofacial Ulcer - CT 07/25: soft tissue swelling, no osteomyelitis or drainable fluid - Covered w/ ancef 2000mg IV q8h (07/25) for epidural abscess - Will be on 6-8 week course antibiotic treatment, as per ID for epidural abscess - mupirocin 2g top BID - wound care consulted - Pt following up with plastic surgeon at [facility] sep 04 DM type 2 - A1c 8.9 - medium dose Novolin R ISS - blood sugars in 250s - lantus 30u SC daily (increased from 25 to 30 on 08/13) - Hypoglycemia protocol - Accuchecks ACHS HTN - patient initially HTN in 160s to 170s, no 130s to 150s - ASA 81 mg PO daily - Enalapril 30 mg PO daily - Metoprolol succinate 50 mg PO daily - Norvasc 10mg PO daily CAP Resolved - CXR 08/06: no active disease - CT A/P: LLL consolidation vs atelectasis - ancef 2000mg IV q8h (07/25) Staph Aureus Bacteremia: Resolved - Initially: Blood Cx positive for Staph aureus (07/21); F/u Blood Cx negative 07/28 X 5 days - Urine Cx: no growth - Procal 14.74, Tmax 100.8 (08/01) - Tylenol 650 mg PO Q6H PRN - Echo: LV normal size and EF. LA mildly dilated. Mild TR - F/u cardio, Dr. Ge recs: - consider KASH if BCx+ in future, signed off - F/u ID, Dr. Garcia recs: - 6-8 week course antibiotic treatment, as per ID - ancef 2000mg IV q8h (07/25), as per ID - likely source: spinal abscess Unresponsiveness Resolved AAOx3 Previously - Code stroke - EEG: nonspecific abnormalities, no seizures noted - CT head: no acute findings - CTA head and neck: no significant stenoses or abnormalities - PRL wnl (12.9) - Gabapentin 100 mg PO TID - Neurology consulted: Manda - no need for anticonvulsant at this time Ppx: DVT: Heparin 5000 units Q12H GI: Protonix 40 mg PO daily Labs: CBC/ CMP Q2D Mag/Phs Q4D PT/OT: GARRETT Dispo: pt without insurance and undocumented citizen, pending medicaid acceptance. Likely to stay for duration of antibiotic tx course. D/w Dr. Veena An, PGY1 <Mila Curiel - Last Filed: 08/14/18 10:00> Objective - Vital Signs/Intake and Output Vital Signs (last 24 hours): Temp Pulse Resp BP Pulse Ox 97.6 F 81 20 152/75 H 97 08/14/18 08:39 08/14/18 08:39 08/14/18 08:39 08/14/18 08:39 08/14/18 08:39 Intake and Output: 08/14/18 08/14/18 06:59 18:59 Intake Total 400 Output Total 700 600 Balance -300 -600 - Medications Medications: Current Medications Acetaminophen (Tylenol 325mg Tab) 650 mg PO Q6 PRN PRN Reason: Fever >100.4 or Pain Last Admin: 08/07/18 11:22 Dose: 650 mg Amlodipine Besylate (Norvasc) 10 mg PO DAILY [facility] Last Admin: 08/13/18 09:54 Dose: 10 mg Aspirin (Ecotrin) 81 mg PO DAILY [facility] Last Admin: 08/13/18 09:54 Dose: 81 mg Dextrose (Dextrose 50% Inj) 0 ml IV STAT PRN; Protocol PRN Reason: Hypoglycemia Protocol Last Admin: 07/22/18 11:53 Dose: 50 ml Dextrose (Glutose 15) 0 gm PO ONCE PRN; Protocol PRN Reason: Hypoglycemia Protocol Docusate Sodium (Colace) 100 mg PO BID [facility] Last Admin: 08/13/18 17:52 Dose: 100 mg Enalapril Maleate (Vasotec) 30 mg PO DAILY [facility] Last Admin: 08/13/18 09:54 Dose: 30 mg Finasteride (Proscar) 5 mg PO DAILY [facility] Last Admin: 08/13/18 09:54 Dose: 5 mg Gabapentin (Neurontin) 100 mg PO TID [facility] Last Admin: 08/13/18 17:52 Dose: 100 mg Glucagon (Glucagen Diagnostic Kit) 0 mg IM STAT PRN; Protocol PRN Reason: Hypoglycemia Protocol Heparin Sodium (Porcine) (Heparin) 5,000 units SC Q12 [facility] Last Admin: 08/13/18 21:52 Dose: 5,000 units Cefazolin Sodium 2,000 mg/ (Sodium Chloride) 50 mls @ 100 mls/hr IVPB Q8H [facility]; Protocol Last Admin: 08/14/18 02:24 Dose: 100 mls/hr Insulin Glargine (Lantus) 30 unit SC DAILY [facility] Insulin Human Regular (Novolin R) 0 unit SC ACHS [facility]; Protocol Last Admin: 08/14/18 07:39 Dose: 2 units Lactobacillus Acidophilus (Bacid Acidophilus) 1 cap PO BID [facility] Last Admin: 08/13/18 17:52 Dose: 1 cap Lidocaine (Lidoderm) 1 ea TD DAILY [facility] Last Admin: 08/13/18 09:51 Dose: 1 ea Metoprolol Succinate (Toprol Xl) 50 mg PO DAILY [facility] Last Admin: 08/13/18 09:54 Dose: 50 mg Mupirocin (Bactroban Ointment) 0 gm TOP BID [facility] Last Admin: 08/13/18 17:55 Dose: 1 applic Naproxen (Anaprox Ds) 550 mg PO Q12H PRN PRN Reason: Pain, moderate (4-7) Last Admin: 08/13/18 17:53 Dose: 550 mg Pantoprazole Sodium (Protonix Ec Tab) 40 mg PO DAILY [facility] Last Admin: 08/13/18 09:54 Dose: 40 mg Tamsulosin HCl (Flomax) 0.4 mg PO BID [facility] Last Admin: 08/13/18 17:52 Dose: 0.4 mg - Labs Labs: 08/14/18 06:17 08/14/18 06:17 PT 15.6 SECONDS (9.7-12.2) H 07/21/18 20:28 INR 1.4 07/21/18 20:28 APTT 34 SECONDS (21-34) 07/21/18 20:28 Attending/Attestation - Attestation I have personally seen and examined this patient.: Yes I have fully participated in the care of the patient.: Yes I have reviewed all pertinent clinical information, including history, physical exam and plan: Yes Notes (Text): no new complain,has lower back pain,voiding trial/monitor UOP continue ancef,monitor sugar I agree with the residents documentation
[2018-08-13] MEDS: (Novolin R) Insulin Human Regular 100 units/ml vial SC SCH ×4 (07:30→21:53)
[2018-08-13] MEDS: Lidocaine 5% Patch TD SCH (09:51)
[2018-08-13] MEDS: Metoprolol Succinate 50 mg XL Tab PO SCH (09:54)
[2018-08-13] MEDS: Pantoprazole 40 mg EC Tab PO SCH (09:54)
[2018-08-13] MEDS: Lactobacillus Acidophilus 500 MU Cap PO SCH ×2 (09:54→17:52)
[2018-08-13] MEDS: (Lantus) Insulin Glargine, Recombinant SC SCH (10:08)
[2018-08-13] MEDS: Naproxen 550 mg Tab PO PRN (17:53)
[2018-08-14 06:38] LABS: BASO # 0.1 K/uL (0.0-0.2); BASO % 0.7 % (0.0-2.0); EOS # 0.3 K/uL (0.0-0.7); EOS % 3.8 % (0.0-4.0); HEMOGLOBIN 8.4 g/dL (12.0-18.0); LYMPH % 22.8 % (20.0-40.0); MEAN CELL VOLUME 85.7 fL (80.0-94.0); MEAN CORPUSCULAR HEMOGLOBIN 29.2 pg (27.0-31.0); MEAN PLATELET VOLUME 8.4 fL (7.2-11.7); MONO # 0.7 K/uL (0.0-0.8); MONO % 8.1 % (0.0-10.0); NEUT # 5.6 K/uL (1.8-7.0); NEUT % 64.6 % (50.0-75.0); RBC 2.87 Mil/uL (4.40-5.90); RED CELL DISTRIBUTION WIDTH 13.6 % (11.5-14.5); WHITE BLOOD COUNT 8.6 K/uL (4.8-10.8)
[2018-08-14 06:44] LABS: ALB/GLOB RATIO 0.7 (1.0-2.1); ALT/SGPT 10 U/L (21-72); AST/SGOT 16 U/L (17-59); BLOOD UREA NITROGEN 23 mg/dL (9-20); CALCIUM 8.7 mg/dl (8.6-10.4); GFR NON-AFRICAN AMERICAN > 60
[2018-08-14] MEDS: (Novolin R) Insulin Human Regular 100 units/ml vial SC SCH ×4 (07:39→21:23)
--- NOTE | 2018-08-14 09:26 | CP.PCM.PN ---
<Rodriguez An M - Last Filed: 08/14/18 15:51> Subjective - Date & Time of Evaluation Date of Evaluation: 08/14/18 Time of Evaluation: 08:35 - Subjective Subjective: PGY1 Medicine Progress note for Dr. Curiel. Patient seen and examined at bedside. No overnight events reported. Patient sitting in bed comfortably. Patient states he feels much better from yesterday. His states his pain in his back is minimal, and is worsened with motion. Patient had sagastume removed yesterday and has been able to freely void without any issues. . Patient denies chest pain, SOB, abdominal pain, nausea, vomiting. Patient again was making an attempt to drink juice. Encourage patient for less sugary alternatives in light of his diabetes. Objective - Vital Signs/Intake and Output Vital Signs (last 24 hours): Temp Pulse Resp BP Pulse Ox 97.6 F 81 20 152/75 H 97 08/14/18 08:39 08/14/18 08:39 08/14/18 08:39 08/14/18 08:39 08/14/18 08:39 Intake and Output: 08/14/18 08/14/18 06:59 18:59 Intake Total 400 Output Total 700 600 Balance -300 -600 - Medications Medications: Current Medications Acetaminophen (Tylenol 325mg Tab) 650 mg PO Q6 PRN PRN Reason: Fever >100.4 or Pain Last Admin: 08/07/18 11:22 Dose: 650 mg Amlodipine Besylate (Norvasc) 10 mg PO DAILY [facility] Last Admin: 08/13/18 09:54 Dose: 10 mg Aspirin (Ecotrin) 81 mg PO DAILY [facility] Last Admin: 08/13/18 09:54 Dose: 81 mg Dextrose (Dextrose 50% Inj) 0 ml IV STAT PRN; Protocol PRN Reason: Hypoglycemia Protocol Last Admin: 07/22/18 11:53 Dose: 50 ml Dextrose (Glutose 15) 0 gm PO ONCE PRN; Protocol PRN Reason: Hypoglycemia Protocol Docusate Sodium (Colace) 100 mg PO BID [facility] Last Admin: 08/13/18 17:52 Dose: 100 mg Enalapril Maleate (Vasotec) 30 mg PO DAILY [facility] Last Admin: 08/13/18 09:54 Dose: 30 mg Finasteride (Proscar) 5 mg PO DAILY [facility] Last Admin: 08/13/18 09:54 Dose: 5 mg Gabapentin (Neurontin) 100 mg PO TID [facility] Last Admin: 08/13/18 17:52 Dose: 100 mg Glucagon (Glucagen Diagnostic Kit) 0 mg IM STAT PRN; Protocol PRN Reason: Hypoglycemia Protocol Heparin Sodium (Porcine) (Heparin) 5,000 units SC Q12 [facility] Last Admin: 08/13/18 21:52 Dose: 5,000 units Cefazolin Sodium 2,000 mg/ (Sodium Chloride) 50 mls @ 100 mls/hr IVPB Q8H [facility]; Protocol Last Admin: 08/14/18 02:24 Dose: 100 mls/hr Insulin Glargine (Lantus) 30 unit SC DAILY [facility] Insulin Human Regular (Novolin R) 0 unit SC ACHS [facility]; Protocol Last Admin: 08/14/18 07:39 Dose: 2 units Lactobacillus Acidophilus (Bacid Acidophilus) 1 cap PO BID [facility] Last Admin: 08/13/18 17:52 Dose: 1 cap Lidocaine (Lidoderm) 1 ea TD DAILY [facility] Last Admin: 08/13/18 09:51 Dose: 1 ea Metoprolol Succinate (Toprol Xl) 50 mg PO DAILY [facility] Last Admin: 08/13/18 09:54 Dose: 50 mg Mupirocin (Bactroban Ointment) 0 gm TOP BID [facility] Last Admin: 08/13/18 17:55 Dose: 1 applic Naproxen (Anaprox Ds) 550 mg PO Q12H PRN PRN Reason: Pain, moderate (4-7) Last Admin: 08/13/18 17:53 Dose: 550 mg Pantoprazole Sodium (Protonix Ec Tab) 40 mg PO DAILY [facility] Last Admin: 08/13/18 09:54 Dose: 40 mg Tamsulosin HCl (Flomax) 0.4 mg PO BID [facility] Last Admin: 08/13/18 17:52 Dose: 0.4 mg - Labs Labs: 08/14/18 06:17 08/14/18 06:17 PT 15.6 SECONDS (9.7-12.2) H 07/21/18 20:28 INR 1.4 07/21/18 20:28 APTT 34 SECONDS (21-34) 07/21/18 20:28 - Constitutional Appears: Non-toxic, No Acute Distress - Head Exam Additional comments: ulcerative lesion on the L nare and L malar region, erythema with slight granulation tissue. no drainage noted. cartilage visible. - Eye Exam Eye Exam: Normal appearance - ENT Exam ENT Exam: Mucous Membranes Moist - Neck Exam Neck Exam: Full ROM - Respiratory Exam Respiratory Exam: Clear to Ausculation Bilateral, NORMAL BREATHING PATTERN. absent: Rales, Rhonchi, Wheezes - Cardiovascular Exam Cardiovascular Exam: +S1, +S2. absent: Diastolic murmur - GI/Abdominal Exam GI & Abdominal Exam: Soft, Normal Bowel Sounds. absent: Guarding, Rigid, Tenderness - Extremities Exam Additional comments: Bilateral BKA Full ROM of upper extremities and upper portion of LE - Back Exam Back Exam: paraspinal tenderness Additional comments: lumbar region - Neurological Exam Neurological Exam: Alert, Awake - Psychiatric Exam Psychiatric exam: Normal Affect, Normal Mood - Skin Skin Exam: Dry, Normal Color, Warm Assessment and Plan - Assessment and Plan (Free Text) Assessment: 53 yo male with a history of uncontrolled T2DM (s/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 Patient's blood cultures are positive for Staph aureus, currently being treated for bacteremia & discitis & spinal abscess: Plan: Epidural Abscess - MRI L-spine: suspicious for discitis osteomyelitis involving L4-5 intervetebral disc w/ anterior epidural abscess, R iliopsoas fluid collection 1.5x1.9cm - pt reports 3 month history, with radiation and urinary retention - Back pain likely due to this, will hold oxycodone as patient was sleeping peacefully at this time - naproxen 550mg PO q12h PRN - ancef 2000mg IV q8h (07/25) - F/u IR, Dr. Fragoso recs: - psoas collection and spinal abscess too small to drain - F/u NeuroSx, Dr. Olivia recs: - no intervention at this time - F/u ID, Dr. Garcia recs: - 6-8 weeks of abx of ancef 2000mg Q8H; started 07/25/18 L Maxillofacial Ulcer - CT 07/25: soft tissue swelling, no osteomyelitis or drainable fluid - Covered w/ ancef 2000mg IV q8h (07/25) for epidural abscess - Will be on 6-8 week course antibiotic treatment, as per ID for epidural abscess - mupirocin 2g top BID - wound care consulted - Pt following up with plastic surgeon at [facility] sep 04 DM type 2 - A1c 8.9 - medium dose Novolin R ISS - blood sugars in 180s - lantus 30u SC daily (increased from 25 to 30 on 08/13) - Hypoglycemia protocol - Accuchecks ACHS HTN - patient initially HTN in 160s to 170s, no 130s to 150s - ASA 81 mg PO daily - Enalapril 30 mg PO daily - Metoprolol succinate 50 mg PO daily - Norvasc 10mg PO daily Urinary Retention Resolved - CT A/P: bladder wall thickening (cystitis), b/l renal parenchymal high density may be underlying metabolic disorder - I/Os - sagastume catheter (07/27) - flomax 0.4mg PO BID - finasteride 5mg PO daily - Urology consulted: Titi Kam - maintain sagastume until outpatient follow - Sagastume D/C'ed @ 10 AM on 08/13, patient has been urinating freely CAP Resolved - CXR 08/06: no active disease - CT A/P: LLL consolidation vs atelectasis - ancef 2000mg IV q8h (07/25) Staph Aureus Bacteremia: Resolved - Initially: Blood Cx positive for Staph aureus (07/21); F/u Blood Cx negative 07/28 X 5 days - Urine Cx: no growth - Procal 14.74, Tmax 100.8 (08/01) - Tylenol 650 mg PO Q6H PRN - Echo: LV normal size and EF. LA mildly dilated. Mild TR - F/u cardio, Dr. Ge recs: - consider KASH if BCx+ in future, signed off - F/u ID, Dr. Garcia recs: - 6-8 week course antibiotic treatment, as per ID - ancef 2000mg IV q8h (07/25), as per ID - likely source: spinal abscess Unresponsiveness Resolved AAOx3 Previously - Code stroke - EEG: nonspecific abnormalities, no seizures noted - CT head: no acute findings - CTA head and neck: no significant stenoses or abnormalities - PRL wnl (12.9) - Gabapentin 100 mg PO TID - Neurology consulted: Manda - no need for anticonvulsant at this time Ppx: DVT: Heparin 5000 units Q12H GI: Protonix 40 mg PO daily Labs: CBC/ CMP Q2D Mag/Phs Q4D PT/OT: GARRETT Dispo: pt without insurance and undocumented citizen, pending medicaid acceptance. Likely to stay for duration of antibiotic tx course. D/w Dr. Veena An, PGY1 <Mila Curiel - Last Filed: 08/30/18 20:27> Objective - Vital Signs/Intake and Output Vital Signs (last 24 hours): Temp Pulse Resp BP Pulse Ox 99.8 F H 87 20 143/74 98 08/30/18 16:00 08/30/18 16:00 08/30/18 16:00 08/30/18 16:00 08/30/18 16:00 Intake and Output: 08/30/18 08/31/18 18:59 06:59 Intake Total 250 Output Total 800 Balance -550 - Medications Medications: Current Medications Acetaminophen (Tylenol 325mg Tab) 650 mg PO Q6 PRN PRN Reason: Fever >100.4 or Pain Last Admin: 08/21/18 13:47 Dose: 650 mg Amlodipine Besylate (Norvasc) 10 mg PO DAILY [facility] Last Admin: 08/30/18 10:07 Dose: 10 mg Aspirin (Ecotrin) 81 mg PO DAILY [facility] Last Admin: 08/30/18 10:07 Dose: 81 mg Docusate Sodium (Colace) 100 mg PO TID [facility] Last Admin: 08/30/18 17:54 Dose: 100 mg Enalapril Maleate (Vasotec) 40 mg PO DAILY [facility] Last Admin: 08/30/18 10:09 Dose: 40 mg Famotidine (Pepcid) 20 mg PO DAILY [facility] Last Admin: 08/30/18 10:06 Dose: 20 mg Ferrous Sulfate (Feosol) 325 mg PO TID [facility] Last Admin: 08/30/18 17:55 Dose: 325 mg Finasteride (Proscar) 5 mg PO DAILY [facility] Last Admin: 08/30/18 10:08 Dose: 5 mg Gabapentin (Neurontin) 200 mg PO TID [facility] Last Admin: 08/30/18 17:55 Dose: 200 mg Heparin Sodium (Porcine) (Heparin) 5,000 units SC BID [facility] Last Admin: 08/30/18 17:55 Dose: 5,000 units Cefazolin Sodium 2,000 mg/ (Sodium Chloride) 50 mls @ 100 mls/hr IVPB Q8H [facility]; Protocol Last Admin: 08/30/18 10:12 Dose: 100 mls/hr Insulin Glargine (Lantus) 30 unit SC DAILY [facility] Last Admin: 08/30/18 10:03 Dose: 30 units Insulin Human Regular (Novolin R) 0 unit SC ACHS [facility]; Protocol Last Admin: 08/30/18 17:56 Dose: 4 units Lactobacillus Acidophilus (Bacid Acidophilus) 1 cap PO BID [facility] Last Admin: 08/30/18 17:54 Dose: 1 cap Lidocaine (Lidoderm) 1 ea TD DAILY [facility] Last Admin: 08/30/18 10:03 Dose: 1 ea Metoprolol Succinate (Toprol Xl) 50 mg PO DAILY [facility] Last Admin: 08/30/18 10:06 Dose: 50 mg Mupirocin (Bactroban Ointment) 0 gm TOP DAILY [facility] Last Admin: 08/30/18 10:14 Dose: 1 applic Naproxen (Anaprox) 275 mg PO BID PRN PRN Reason: Pain, moderate (4-7) Last Admin: 08/30/18 14:32 Dose: 275 mg Oxycodone/Acetaminophen (Percocet 5/325 Mg Tab) 1 tab PO DAILY PRN PRN Reason: Pain, moderate (4-7) Stop: 09/05/18 16:29 Polyethylene Glycol (Miralax) 17 gm PO HS PRN PRN Reason: Constipation Polyethylene Glycol (Miralax) 17 gm PO MWF [facility] Last Admin: 08/30/18 10:03 Dose: 17 gm Tamsulosin HCl (Flomax) 0.4 mg PO BID [facility] Last Admin: 08/30/18 17:55 Dose: 0.4 mg Vitamin A (Vitamin A & D Oint Ud Foilpak) 1 ea TOP BID [facility] Last Admin: 08/30/18 17:56 Dose: 1 ea - Labs Labs: 08/30/18 07:55 08/30/18 07:55 PT 15.6 SECONDS (9.7-12.2) H 07/21/18 20:28 INR 1.4 07/21/18 20:28 APTT 34 SECONDS (21-34) 07/21/18 20:28 Attending/Attestation - Attestation I have personally seen and examined this patient.: Yes I have fully participated in the care of the patient.: Yes I have reviewed all pertinent clinical information, including history, physical exam and plan: Yes
[2018-08-14] MEDS: Metoprolol Succinate 50 mg XL Tab PO SCH (10:00)
[2018-08-14] MEDS: Lactobacillus Acidophilus 500 MU Cap PO SCH ×2 (10:00→17:18)
[2018-08-14] MEDS: Pantoprazole 40 mg EC Tab PO SCH (10:00)
[2018-08-14] MEDS: (Lantus) Insulin Glargine, Recombinant SC SCH (10:01)
[2018-08-14] MEDS: Naproxen 550 mg Tab PO PRN (10:01)
[2018-08-14] MEDS: Lidocaine 5% Patch TD SCH (10:08)
--- NOTE | 2018-08-15 06:22 | CP.PCM.PN ---
<Mala Carter Y - Last Filed: 08/15/18 06:19> Subjective - Date & Time of Evaluation Date of Evaluation: 08/15/18 Time of Evaluation: 06:19 - Subjective Subjective: PGY-1 Medicine Progress Note for Dr. Curiel Patient was seen and examined today at bedside in no acute distress. Nursing reports no overnight events. Patient has no new complaints. Patient is urinating without difficulty. Denies chest pain, shortness of breath, abdominal pain, n/v. Objective - Vital Signs/Intake and Output Vital Signs (last 24 hours): Temp Pulse Resp BP Pulse Ox 98.2 F 83 20 149/75 97 08/14/18 23:13 08/14/18 23:13 08/14/18 23:13 08/14/18 23:13 08/14/18 23:13 Intake and Output: 08/14/18 08/15/18 18:59 06:59 Intake Total 300 Output Total 600 500 Balance -600 -200 - Medications Medications: Current Medications Acetaminophen (Tylenol 325mg Tab) 650 mg PO Q6 PRN PRN Reason: Fever >100.4 or Pain Last Admin: 08/07/18 11:22 Dose: 650 mg Amlodipine Besylate (Norvasc) 10 mg PO DAILY [facility] Last Admin: 08/14/18 10:01 Dose: 10 mg Aspirin (Ecotrin) 81 mg PO DAILY [facility] Last Admin: 08/14/18 10:00 Dose: 81 mg Dextrose (Dextrose 50% Inj) 0 ml IV STAT PRN; Protocol PRN Reason: Hypoglycemia Protocol Last Admin: 07/22/18 11:53 Dose: 50 ml Dextrose (Glutose 15) 0 gm PO ONCE PRN; Protocol PRN Reason: Hypoglycemia Protocol Docusate Sodium (Colace) 100 mg PO BID [facility] Last Admin: 08/14/18 17:18 Dose: 100 mg Enalapril Maleate (Vasotec) 30 mg PO DAILY [facility] Last Admin: 08/14/18 10:00 Dose: 30 mg Finasteride (Proscar) 5 mg PO DAILY [facility] Last Admin: 08/14/18 10:00 Dose: 5 mg Gabapentin (Neurontin) 100 mg PO TID [facility] Last Admin: 08/14/18 17:18 Dose: 100 mg Glucagon (Glucagen Diagnostic Kit) 0 mg IM STAT PRN; Protocol PRN Reason: Hypoglycemia Protocol Heparin Sodium (Porcine) (Heparin) 5,000 units SC Q12 [facility] Last Admin: 08/14/18 21:41 Dose: 5,000 units Cefazolin Sodium 2,000 mg/ (Sodium Chloride) 50 mls @ 100 mls/hr IVPB Q8H [facility]; Protocol Last Admin: 08/15/18 03:14 Dose: 100 mls/hr Insulin Glargine (Lantus) 30 unit SC DAILY [facility] Last Admin: 08/14/18 10:01 Dose: 30 units Insulin Human Regular (Novolin R) 0 unit SC ACHS [facility]; Protocol Last Admin: 08/14/18 21:23 Dose: Not Given Lactobacillus Acidophilus (Bacid Acidophilus) 1 cap PO BID [facility] Last Admin: 08/14/18 17:18 Dose: 1 cap Lidocaine (Lidoderm) 1 ea TD DAILY [facility] Last Admin: 08/14/18 10:08 Dose: 1 ea Metoprolol Succinate (Toprol Xl) 50 mg PO DAILY [facility] Last Admin: 08/14/18 10:00 Dose: 50 mg Mupirocin (Bactroban Ointment) 0 gm TOP BID [facility] Last Admin: 08/14/18 21:45 Dose: Not Given Naproxen (Anaprox Ds) 550 mg PO Q12H PRN PRN Reason: Pain, moderate (4-7) Last Admin: 08/14/18 10:01 Dose: 550 mg Pantoprazole Sodium (Protonix Ec Tab) 40 mg PO DAILY [facility] Last Admin: 08/14/18 10:00 Dose: 40 mg Tamsulosin HCl (Flomax) 0.4 mg PO BID [facility] Last Admin: 08/14/18 17:18 Dose: 0.4 mg - Labs Labs: 08/14/18 06:17 08/14/18 06:17 PT 15.6 SECONDS (9.7-12.2) H 07/21/18 20:28 INR 1.4 07/21/18 20:28 APTT 34 SECONDS (21-34) 07/21/18 20:28 - Constitutional Appears: Non-toxic, No Acute Distress - Head Exam Head Exam: ATRAUMATIC, NORMOCEPHALIC Additional comments: ulcerative lesion on the L nare and L malar region, erythema with slight granulation tissue. no drainage noted. cartilage visible. - Eye Exam Eye Exam: EOMI Pupil Exam: NORMAL ACCOMODATION - ENT Exam ENT Exam: Mucous Membranes Moist - Respiratory Exam Respiratory Exam: Clear to Ausculation Bilateral, NORMAL BREATHING PATTERN. absent: Rales, Rhonchi, Wheezes - Cardiovascular Exam Cardiovascular Exam: +S1, +S2 - GI/Abdominal Exam GI & Abdominal Exam: Soft, Normal Bowel Sounds. absent: Tenderness - Extremities Exam Additional comments: bilateral BKA radial pulse palpable - Back Exam Back Exam: paraspinal tenderness (lumbar) - Neurological Exam Neurological Exam: Alert, Awake, Oriented x3 - Psychiatric Exam Psychiatric exam: Normal Affect, Normal Mood - Skin Skin Exam: Dry, Normal Color, Warm Assessment and Plan - Assessment and Plan (Free Text) Assessment: 53 yo male with a history of uncontrolled T2DM (s/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 Patient's blood cultures are positive for Staph aureus, currently being treated for bacteremia & discitis & spinal abscess. Plan: Epidural Abscess - MRI L-spine: suspicious for discitis osteomyelitis involving L4-5 intervetebral disc w/ anterior epidural abscess, R iliopsoas fluid collection 1.5x1.9cm - pt reports 3 month history, with radiation and urinary retention - Back pain likely due to this, will hold oxycodone as patient was sleeping peacefully at this time - naproxen 550mg PO q12h PRN - ancef 2000mg IV q8h (07/25) - F/u IR, Dr. Fragoso recs: - psoas collection and spinal abscess too small to drain - F/u NeuroSx, Dr. Olivia recs: - no intervention at this time - F/u ID, Dr. Garcia recs: - 6-8 weeks of abx of ancef 2000mg Q8H; started 07/25/18 L Maxillofacial Ulcer - CT 07/25: soft tissue swelling, no osteomyelitis or drainable fluid - Covered w/ ancef 2000mg IV q8h (07/25) for epidural abscess - Will be on 6-8 week course antibiotic treatment, as per ID for epidural abscess - mupirocin 2g top BID - wound care consulted - Pt following up with plastic surgeon at [facility] sep 04 DM type 2 - A1c 8.9 - medium dose Novolin R ISS - blood sugars in 180s - lantus 30u SC daily (increased from 25 to 30 on 08/13) - Hypoglycemia protocol - Accuchecks ACHS HTN - patient initially HTN in 160s to 170s, no 130s to 150s - ASA 81 mg PO daily - Enalapril 30 mg PO daily - Metoprolol succinate 50 mg PO daily - Norvasc 10mg PO daily Urinary Retention Resolved - CT A/P: bladder wall thickening (cystitis), b/l renal parenchymal high density may be underlying metabolic disorder - I/Os - sagastume catheter (07/27) - flomax 0.4mg PO BID - finasteride 5mg PO daily - Urology consulted: Titi Kam - maintain sagastume until outpatient follow - Sagastume D/C'ed @ 10 AM on 08/13, patient has been urinating freely CAP Resolved - CXR 08/06: no active disease - CT A/P: LLL consolidation vs atelectasis - ancef 2000mg IV q8h (07/25) Staph Aureus Bacteremia: Resolved - Initially: Blood Cx positive for Staph aureus (07/21); F/u Blood Cx negative 07/28 X 5 days - Urine Cx: no growth - Procal 14.74, Tmax 100.8 (08/01) - Tylenol 650 mg PO Q6H PRN - Echo: LV normal size and EF. LA mildly dilated. Mild TR - F/u cardio, Dr. Ge recs: - consider KASH if BCx+ in future, signed off - F/u ID, Dr. Garcia recs: - 6-8 week course antibiotic treatment, as per ID - ancef 2000mg IV q8h (07/25), as per ID - likely source: spinal abscess Unresponsiveness Resolved AAOx3 Previously - Code stroke - EEG: nonspecific abnormalities, no seizures noted - CT head: no acute findings - CTA head and neck: no significant stenoses or abnormalities - PRL wnl (12.9) - Gabapentin 100 mg PO TID - Neurology consulted: Manda - no need for anticonvulsant at this time Ppx: DVT: Heparin 5000 units Q12H GI: Protonix 40 mg PO daily Labs: CBC/ CMP Q2D Mag/Phs Q4D PT/OT: [facility]AR[facility]TT Dispo: pt without insurance and undocumented citizen, pending medicaid acceptance. Likely to stay for duration of antibiotic tx course. <Mila Curiel - Last Filed: 08/30/18 20:27> Objective - Vital Signs/Intake and Output Vital Signs (last 24 hours): Temp Pulse Resp BP Pulse Ox 99.8 F H 87 20 143/74 98 08/30/18 16:00 08/30/18 16:00 08/30/18 16:00 08/30/18 16:00 08/30/18 16:00 Intake and Output: 08/30/18 08/31/18 18:59 06:59 Intake Total 250 Output Total 800 Balance -550 - Medications Medications: Current Medications Acetaminophen (Tylenol 325mg Tab) 650 mg PO Q6 PRN PRN Reason: Fever >100.4 or Pain Last Admin: 08/21/18 13:47 Dose: 650 mg Amlodipine Besylate (Norvasc) 10 mg PO DAILY [facility] Last Admin: 08/30/18 10:07 Dose: 10 mg Aspirin (Ecotrin) 81 mg PO DAILY [facility] Last Admin: 08/30/18 10:07 Dose: 81 mg Docusate Sodium (Colace) 100 mg PO TID [facility] Last Admin: 08/30/18 17:54 Dose: 100 mg Enalapril Maleate (Vasotec) 40 mg PO DAILY [facility] Last Admin: 08/30/18 10:09 Dose: 40 mg Famotidine (Pepcid) 20 mg PO DAILY [facility] Last Admin: 08/30/18 10:06 Dose: 20 mg Ferrous Sulfate (Feosol) 325 mg PO TID [facility] Last Admin: 08/30/18 17:55 Dose: 325 mg Finasteride (Proscar) 5 mg PO DAILY [facility] Last Admin: 08/30/18 10:08 Dose: 5 mg Gabapentin (Neurontin) 200 mg PO TID [facility] Last Admin: 08/30/18 17:55 Dose: 200 mg Heparin Sodium (Porcine) (Heparin) 5,000 units SC BID [facility] Last Admin: 08/30/18 17:55 Dose: 5,000 units Cefazolin Sodium 2,000 mg/ (Sodium Chloride) 50 mls @ 100 mls/hr IVPB Q8H [facility]; Protocol Last Admin: 08/30/18 10:12 Dose: 100 mls/hr Insulin Glargine (Lantus) 30 unit SC DAILY [facility] Last Admin: 12/07/18 10:03 Dose: 30 units Insulin Human Regular (Novolin R) 0 unit SC ACHS [facility]; Protocol Last Admin: 08/30/18 17:56 Dose: 4 units Lactobacillus Acidophilus (Bacid Acidophilus) 1 cap PO BID [facility] Last Admin: 08/30/18 17:54 Dose: 1 cap Lidocaine (Lidoderm) 1 ea TD DAILY [facility] Last Admin: 08/30/18 10:03 Dose: 1 ea Metoprolol Succinate (Toprol Xl) 50 mg PO DAILY [facility] Last Admin: 08/30/18 10:06 Dose: 50 mg Mupirocin (Bactroban Ointment) 0 gm TOP DAILY [facility] Last Admin: 08/30/18 10:14 Dose: 1 applic Naproxen (Anaprox) 275 mg PO BID PRN PRN Reason: Pain, moderate (4-7) Last Admin: 08/30/18 14:32 Dose: 275 mg Oxycodone/Acetaminophen (Percocet 5/325 Mg Tab) 1 tab PO DAILY PRN PRN Reason: Pain, moderate (4-7) Stop: 09/05/18 16:29 Polyethylene Glycol (Miralax) 17 gm PO HS PRN PRN Reason: Constipation Polyethylene Glycol (Miralax) 17 gm PO MWF [facility] Last Admin: 08/30/18 10:03 Dose: 17 gm Tamsulosin HCl (Flomax) 0.4 mg PO BID [facility] Last Admin: 08/30/18 17:55 Dose: 0.4 mg Vitamin A (Vitamin A & D Oint Ud Foilpak) 1 ea TOP BID [facility] Last Admin: 08/30/18 17:56 Dose: 1 ea - Labs Labs: 08/30/18 07:55 08/30/18 07:55 PT 15.6 SECONDS (9.7-12.2) H 07/21/18 20:28 INR 1.4 07/21/18 20:28 APTT 34 SECONDS (21-34) 07/21/18 20:28 Attending/Attestation - Attestation I have personally seen and examined this patient.: Yes I have fully participated in the care of the patient.: Yes I have reviewed all pertinent clinical information, including history, physical exam and plan: Yes
[2018-08-15] MEDS: (Novolin R) Insulin Human Regular 100 units/ml vial SC SCH ×4 (07:48→21:42)
[2018-08-15] MEDS: Lidocaine 5% Patch TD SCH (09:51)
[2018-08-15] MEDS: Lactobacillus Acidophilus 500 MU Cap PO SCH ×2 (09:51→17:30)
[2018-08-15] MEDS: Pantoprazole 40 mg EC Tab PO SCH (09:52)
[2018-08-15] MEDS: Naproxen 550 mg Tab PO PRN (09:52)
[2018-08-15] MEDS: Metoprolol Succinate 50 mg XL Tab PO SCH (09:52)
[2018-08-15] MEDS: (Lantus) Insulin Glargine, Recombinant SC SCH (09:55)
[2018-08-16 07:03] LABS: BASO % 0.6 % (0.0-2.0); EOS # 0.4 K/uL (0.0-0.7); EOS % 4.9 % (0.0-4.0); LYMPH # 1.7 K/uL (1.0-4.3); LYMPH % 22.3 % (20.0-40.0); MEAN CELL VOLUME 85.8 fL (80.0-94.0); MEAN CORPUSCULAR HEMOGLOBIN 30.3 pg (27.0-31.0); MEAN CORPUSCULAR HGB CONC 35.4 g/dL (33.0-37.0); MEAN PLATELET VOLUME 8.5 fL (7.2-11.7); MONO # 0.6 K/uL (0.0-0.8); MONO % 7.9 % (0.0-10.0); NEUT # 4.8 K/uL (1.8-7.0); NEUT % 64.3 % (50.0-75.0); RBC 2.65 Mil/uL (4.40-5.90); RED CELL DISTRIBUTION WIDTH 13.5 % (11.5-14.5); WHITE BLOOD COUNT 7.4 K/uL (4.8-10.8)
--- NOTE | 2018-08-16 07:36 | CP.PCM.PN ---
<Rodriguez An M - Last Filed: 08/16/18 13:41> Subjective - Date & Time of Evaluation Date of Evaluation: 08/16/18 Time of Evaluation: 09:05 - Subjective Subjective: PGY1 Medicine Progress note for Dr. Curiel. Patient seen and examined at bedside. No overnight events reported. Patient sitting in bed comfortably. Patient states he feels much better from yesterday. His states his pain in his back is minimal, and is worsened with motion. Patient had sagastume removed 08/13 and has been able to freely void without any issues. Jennifer tapia reports pain on urination, first episode last night. Patient denies hematuria. Patient denies chest pain, SOB, abdominal pain, nausea, vomiting. Patient again was making an attempt to drink juice. Encourage patient for less sugary alternatives in light of his diabetes. Objective - Vital Signs/Intake and Output Vital Signs (last 24 hours): Temp Pulse Resp BP Pulse Ox 97.7 F 80 16 135/70 99 08/16/18 00:00 08/16/18 00:00 08/16/18 00:00 08/16/18 00:00 08/16/18 00:00 Intake and Output: 08/16/18 08/16/18 06:59 18:59 Intake Total 350 Output Total 400 Balance -50 - Medications Medications: Current Medications Acetaminophen (Tylenol 325mg Tab) 650 mg PO Q6 PRN PRN Reason: Fever >100.4 or Pain Last Admin: 08/07/18 11:22 Dose: 650 mg Amlodipine Besylate (Norvasc) 10 mg PO DAILY [facility] Last Admin: 08/15/18 09:52 Dose: 10 mg Aspirin (Ecotrin) 81 mg PO DAILY [facility] Last Admin: 08/15/18 09:52 Dose: 81 mg Dextrose (Dextrose 50% Inj) 0 ml IV STAT PRN; Protocol PRN Reason: Hypoglycemia Protocol Last Admin: 07/22/18 11:53 Dose: 50 ml Dextrose (Glutose 15) 0 gm PO ONCE PRN; Protocol PRN Reason: Hypoglycemia Protocol Docusate Sodium (Colace) 100 mg PO BID [facility] Last Admin: 08/15/18 18:00 Dose: Not Given Enalapril Maleate (Vasotec) 30 mg PO DAILY [facility] Last Admin: 08/15/18 09:52 Dose: 30 mg Finasteride (Proscar) 5 mg PO DAILY [facility] Last Admin: 08/15/18 09:52 Dose: 5 mg Gabapentin (Neurontin) 100 mg PO TID [facility] Last Admin: 08/15/18 17:30 Dose: 100 mg Glucagon (Glucagen Diagnostic Kit) 0 mg IM STAT PRN; Protocol PRN Reason: Hypoglycemia Protocol Heparin Sodium (Porcine) (Heparin) 5,000 units SC Q12 [facility] Last Admin: 08/15/18 21:38 Dose: 5,000 units Cefazolin Sodium 2,000 mg/ (Sodium Chloride) 50 mls @ 100 mls/hr IVPB Q8H [facility]; Protocol Last Admin: 08/16/18 03:48 Dose: 100 mls/hr Insulin Glargine (Lantus) 30 unit SC DAILY [facility] Last Admin: 08/15/18 09:55 Dose: 30 units Insulin Human Regular (Novolin R) 0 unit SC ACHS [facility]; Protocol Last Admin: 08/15/18 21:42 Dose: 2 units Lactobacillus Acidophilus (Bacid Acidophilus) 1 cap PO BID [facility] Last Admin: 08/15/18 17:30 Dose: 1 cap Lidocaine (Lidoderm) 1 ea TD DAILY [facility] Last Admin: 08/15/18 09:51 Dose: 1 ea Metoprolol Succinate (Toprol Xl) 50 mg PO DAILY [facility] Last Admin: 08/15/18 09:52 Dose: 50 mg Mupirocin (Bactroban Ointment) 0 gm TOP BID [facility] Last Admin: 08/15/18 17:31 Dose: 1 applic Naproxen (Anaprox Ds) 550 mg PO Q12H PRN PRN Reason: Pain, moderate (4-7) Last Admin: 08/15/18 09:52 Dose: 550 mg Pantoprazole Sodium (Protonix Ec Tab) 40 mg PO DAILY [facility] Last Admin: 08/15/18 09:52 Dose: 40 mg Tamsulosin HCl (Flomax) 0.4 mg PO BID [facility] Last Admin: 08/15/18 17:30 Dose: 0.4 mg - Labs Labs: 08/16/18 06:47 08/14/18 06:17 PT 15.6 SECONDS (9.7-12.2) H 07/21/18 20:28 INR 1.4 07/21/18 20:28 APTT 34 SECONDS (21-34) 07/21/18 20:28 - Constitutional Appears: Non-toxic, No Acute Distress - Head Exam Additional comments: ulcerative lesion on the L nare and L malar region, erythema with slight granulation tissue. no drainage noted. cartilage visible. - Eye Exam Eye Exam: EOMI, Normal appearance - ENT Exam ENT Exam: Mucous Membranes Moist - Respiratory Exam Respiratory Exam: Clear to Ausculation Bilateral, NORMAL BREATHING PATTERN. absent: Rales, Rhonchi, Wheezes - Cardiovascular Exam Cardiovascular Exam: +S1, +S2. absent: Murmur - GI/Abdominal Exam GI & Abdominal Exam: Soft, Normal Bowel Sounds. absent: Guarding, Rigid - Extremities Exam Extremities Exam: Full ROM, Normal Inspection. absent: Calf Tenderness, Pedal Edema Additional comments: bilateral BKA radial pulse palpable - Back Exam Back Exam: paraspinal tenderness - Neurological Exam Neurological Exam: Alert, Awake, Oriented x3 - Skin Skin Exam: Dry, Intact, Normal Color, Warm Assessment and Plan - Assessment and Plan (Free Text) Assessment: 53 yo male with a history of uncontrolled T2DM (s/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 Patient's blood cultures are positive for Staph aureus, currently being treated for bacteremia & discitis & spinal abscess. Plan: Epidural Abscess - MRI L-spine: suspicious for discitis osteomyelitis involving L4-5 intervetebral disc w/ anterior epidural abscess, R iliopsoas fluid collection 1.5x1.9cm - pt reports 3 month history, with radiation and urinary retention - Back pain likely due to this, will hold oxycodone as patient was sleeping peacefully at this time - naproxen 550mg PO q12h PRN - ancef 2000mg IV q8h (07/25) - F/u IR, Dr. Fragoso recs: - psoas collection and spinal abscess too small to drain - F/u NeuroSx, Dr. Olivia recs: - no intervention at this time - F/u ID, Dr. Garcia recs: - 6-8 weeks of abx of ancef 2000mg Q8H; started 07/25/18 - will need through 09/04/18 Burning on urination - burning on urination since last night - F/u UC & UA (08/16) L Maxillofacial Ulcer - CT 07/25: soft tissue swelling, no osteomyelitis or drainable fluid - Covered w/ ancef 2000mg IV q8h (07/25) for epidural abscess - Will be on 6-8 week course antibiotic treatment, as per ID for epidural abscess - mupirocin 2g top BID - wound care consulted - Pt following up with plastic surgeon at [facility] sep 04 DM type 2 - A1c 8.9 - medium dose Novolin R ISS - blood sugars in 180s - lantus 30u SC daily (increased from 25 to 30 on 08/13) - Hypoglycemia protocol - Accuchecks ACHS - despite persistent education of no sweet/sugar filled drinks, patient continues to have juices at bedside HTN - patient initially HTN in 160s to 170s, no 130s to 150s - ASA 81 mg PO daily - Enalapril 30 mg PO daily - Metoprolol succinate 50 mg PO daily - Norvasc 10mg PO daily Urinary Retention Resolved - CT A/P: bladder wall thickening (cystitis), b/l renal parenchymal high density may be underlying metabolic disorder - I/Os - sagastume catheter (07/27) - flomax 0.4mg PO BID - finasteride 5mg PO daily - Urology consulted: Titi Kam - maintain sagastume until outpatient follow - Sagastume D/C'ed @ 10 AM on 08/13, patient has been urinating freely CAP Resolved - CXR 08/06: no active disease - CT A/P: LLL consolidation vs atelectasis - ancef 2000mg IV q8h (07/25) Staph Aureus Bacteremia: Resolved - Initially: Blood Cx positive for Staph aureus (07/21); F/u Blood Cx negative 07/28 X 5 days - Urine Cx: no growth - Procal 14.74, Tmax 100.8 (08/01) - Tylenol 650 mg PO Q6H PRN - Echo: LV normal size and EF. LA mildly dilated. Mild TR - F/u cardio, Dr. Ge recs: - consider KASH if BCx+ in future, signed off - F/u ID, Dr. Garcia recs: - 6-8 week course antibiotic treatment, as per ID - ancef 2000mg IV q8h (07/25), as per ID - likely source: spinal abscess Unresponsiveness Resolved AAOx3 Previously - Code stroke - EEG: nonspecific abnormalities, no seizures noted - CT head: no acute findings - CTA head and neck: no significant stenoses or abnormalities - PRL wnl (12.9) - Gabapentin 100 mg PO TID - Neurology consulted: Manda - no need for anticonvulsant at this time Ppx: DVT: Heparin 5000 units Q12H GI: Protonix 40 mg PO daily Labs: CBC/ CMP Q2D Mag/Phs Q4D PT/OT: GARRETT Dispo: pt without insurance and undocumented citizen, pending medicaid acceptance. Likely to stay for duration of antibiotic tx course. <Mila Curiel - Last Filed: 08/30/18 20:27> Objective - Vital Signs/Intake and Output Vital Signs (last 24 hours): Temp Pulse Resp BP Pulse Ox 97.5 F L 81 20 154/73 H 96 08/17/18 07:46 08/17/18 07:46 08/17/18 07:46 08/17/18 07:46 08/17/18 07:46 Intake and Output: 08/17/18 08/17/18 06:59 18:59 Intake Total 500 Output Total 2000 Balance -1500 - Medications Medications: Current Medications Acetaminophen (Tylenol 325mg Tab) 650 mg PO Q6 PRN PRN Reason: Fever >100.4 or Pain Last Admin: 08/07/18 11:22 Dose: 650 mg Amlodipine Besylate (Norvasc) 10 mg PO DAILY [facility] Last Admin: 08/16/18 09:53 Dose: 10 mg Aspirin (Ecotrin) 81 mg PO DAILY [facility] Last Admin: 08/16/18 09:53 Dose: 81 mg Dextrose (Dextrose 50% Inj) 0 ml IV STAT PRN; Protocol PRN Reason: Hypoglycemia Protocol Last Admin: 07/22/18 11:53 Dose: 50 ml Dextrose (Glutose 15) 0 gm PO ONCE PRN; Protocol PRN Reason: Hypoglycemia Protocol Docusate Sodium (Colace) 100 mg PO BID [facility] Last Admin: 08/16/18 18:39 Dose: 100 mg Enalapril Maleate (Vasotec) 30 mg PO DAILY [facility] Last Admin: 08/16/18 09:52 Dose: 30 mg Finasteride (Proscar) 5 mg PO DAILY [facility] Last Admin: 08/16/18 09:53 Dose: 5 mg Gabapentin (Neurontin) 100 mg PO TID [facility] Last Admin: 08/16/18 18:39 Dose: 100 mg Glucagon (Glucagen Diagnostic Kit) 0 mg IM STAT PRN; Protocol PRN Reason: Hypoglycemia Protocol Heparin Sodium (Porcine) (Heparin) 5,000 units SC Q12 [facility] Last Admin: 08/16/18 21:35 Dose: 5,000 units Cefazolin Sodium 2,000 mg/ (Sodium Chloride) 50 mls @ 100 mls/hr IVPB Q8H [facility]; Protocol Last Admin: 08/17/18 03:03 Dose: 100 mls/hr Insulin Glargine (Lantus) 30 unit SC DAILY [facility] Last Admin: 08/16/18 09:54 Dose: 30 units Insulin Human Regular (Novolin R) 0 unit SC ACHS [facility]; Protocol Last Admin: 08/17/18 07:34 Dose: Not Given Lactobacillus Acidophilus (Bacid Acidophilus) 1 cap PO BID [facility] Last Admin: 08/16/18 18:39 Dose: 1 cap Lidocaine (Lidoderm) 1 ea TD DAILY [facility] Last Admin: 08/16/18 09:55 Dose: 1 ea Metoprolol Succinate (Toprol Xl) 50 mg PO DAILY [facility] Last Admin: 08/16/18 09:53 Dose: 50 mg Mupirocin (Bactroban Ointment) 0 gm TOP BID [facility] Last Admin: 08/16/18 18:00 Dose: 1 applic Naproxen (Anaprox Ds) 550 mg PO Q12H PRN PRN Reason: Pain, moderate (4-7) Last Admin: 08/16/18 21:41 Dose: 550 mg Pantoprazole Sodium (Protonix Ec Tab) 40 mg PO DAILY [facility] Last Admin: 08/16/18 09:53 Dose: 40 mg Tamsulosin HCl (Flomax) 0.4 mg PO BID [facility] Last Admin: 08/16/18 18:39 Dose: 0.4 mg - Labs Labs: 08/16/18 06:47 08/16/18 06:47 PT 15.6 SECONDS (9.7-12.2) H 07/21/18 20:28 INR 1.4 07/21/18 20:28 APTT 34 SECONDS (21-34) 07/21/18 20:28 Attending/Attestation - Attestation I have personally seen and examined this patient.: Yes I have fully participated in the care of the patient.: Yes I have reviewed all pertinent clinical information, including history, physical exam and plan: Yes Notes (Text): Patient is lying comfortable,Has lower back pain.Discussed about weeks of antibiotics. Patient is noncompliance with diet,family bring fruit juice and soda . Patient agree to comply with diabetic diet. sugar is high,Getting lantus 30units Chronic anemia,
[2018-08-16 07:42] LABS: ALB/GLOB RATIO 0.7 (1.0-2.1); ALBUMIN 2.9 g/dL (3.5-5.0); ALT/SGPT 9 U/L (21-72); AST/SGOT 16 U/L (17-59); BLOOD UREA NITROGEN 24 mg/dL (9-20); CALCIUM 8.5 mg/dl (8.6-10.4); GFR NON-AFRICAN AMERICAN > 60
[2018-08-16] MEDS: (Novolin R) Insulin Human Regular 100 units/ml vial SC SCH ×4 (08:25→21:45)
[2018-08-16] MEDS: Lactobacillus Acidophilus 500 MU Cap PO SCH ×2 (09:53→18:39)
[2018-08-16] MEDS: Pantoprazole 40 mg EC Tab PO SCH (09:53)
[2018-08-16] MEDS: Metoprolol Succinate 50 mg XL Tab PO SCH (09:53)
[2018-08-16] MEDS: (Lantus) Insulin Glargine, Recombinant SC SCH (09:54)
[2018-08-16] MEDS: Lidocaine 5% Patch TD SCH (09:55)
[2018-08-16] MEDS: Naproxen 550 mg Tab PO PRN (21:41)
[2018-08-17] MEDS: (Novolin R) Insulin Human Regular 100 units/ml vial SC SCH ×4 (07:34→22:26)
[2018-08-17 08:08] LABS: SQUAMOUS EPITHIAL 1 /hpf (0-5); URINE BACTERIA RARE (<OCC); URINE BILIRUBIN NEGATIVE (NEGATIVE); URINE BLOOD NEGATIVE (NEGATIVE); URINE CLARITY Hazy (Clear); URINE COLOR Yellow (YELLOW); URINE GLUCOSE (UA) NORMAL (Normal); URINE LEUKOCYTE ESTERASE 2+ Leu/uL (Negative); URINE PROTEIN 2+ mg/dL (NEGATIVE); URINE UROBILINOGEN NORMAL mg/dL (0.2-1.0)
[2018-08-17] MEDS ORDERED: POLYETHYLENE GLYCOL 3350 17 GM/Dose PACKET PO PRN (08:16)
[2018-08-17] MEDS: Lidocaine 5% Patch TD SCH (09:51)
[2018-08-17] MEDS: (Lantus) Insulin Glargine, Recombinant SC SCH (09:52)
[2018-08-17] MEDS: Pantoprazole 40 mg EC Tab PO SCH (09:53)
[2018-08-17] MEDS: Lactobacillus Acidophilus 500 MU Cap PO SCH ×2 (09:53→17:36)
[2018-08-17] MEDS: Metoprolol Succinate 50 mg XL Tab PO SCH (09:54)
--- NOTE | 2018-08-17 16:34 | CP.PCM.PN ---
Subjective - Date & Time of Evaluation Date of Evaluation: 08/17/18 Time of Evaluation: 11:45 Objective - Vital Signs/Intake and Output Vital Signs (last 24 hours): Temp Pulse Resp BP Pulse Ox 97.5 F L 81 20 145/70 96 08/17/18 07:46 08/17/18 07:46 08/17/18 07:46 08/17/18 09:53 08/17/18 07:46 Intake and Output: 08/17/18 08/17/18 06:59 18:59 Intake Total 500 Output Total 2000 Balance -1500 - Medications Medications: Current Medications Acetaminophen (Tylenol 325mg Tab) 650 mg PO Q6 PRN PRN Reason: Fever >100.4 or Pain Last Admin: 08/07/18 11:22 Dose: 650 mg Amlodipine Besylate (Norvasc) 10 mg PO DAILY [facility] Last Admin: 08/17/18 09:53 Dose: 10 mg Aspirin (Ecotrin) 81 mg PO DAILY [facility] Last Admin: 08/17/18 09:53 Dose: 81 mg Dextrose (Dextrose 50% Inj) 0 ml IV STAT PRN; Protocol PRN Reason: Hypoglycemia Protocol Last Admin: 07/22/18 11:53 Dose: 50 ml Dextrose (Glutose 15) 0 gm PO ONCE PRN; Protocol PRN Reason: Hypoglycemia Protocol Docusate Sodium (Colace) 100 mg PO TID [facility] Last Admin: 08/17/18 13:21 Dose: 100 mg Enalapril Maleate (Vasotec) 30 mg PO DAILY [facility] Last Admin: 08/17/18 09:53 Dose: 30 mg Ferrous Sulfate (Feosol) 325 mg PO TID [facility] Finasteride (Proscar) 5 mg PO DAILY [facility] Last Admin: 08/17/18 09:53 Dose: 5 mg Gabapentin (Neurontin) 100 mg PO TID [facility] Last Admin: 08/17/18 13:21 Dose: 100 mg Glucagon (Glucagen Diagnostic Kit) 0 mg IM STAT PRN; Protocol PRN Reason: Hypoglycemia Protocol Heparin Sodium (Porcine) (Heparin) 5,000 units SC Q12 [facility] Last Admin: 08/17/18 09:54 Dose: 5,000 units Cefazolin Sodium 2,000 mg/ (Sodium Chloride) 50 mls @ 100 mls/hr IVPB Q8H [facility]; Protocol Last Admin: 08/17/18 10:00 Dose: 100 mls/hr Insulin Glargine (Lantus) 30 unit SC DAILY [facility] Last Admin: 08/17/18 09:52 Dose: 30 units Insulin Human Regular (Novolin R) 0 unit SC [facility]; Protocol Last Admin: 08/17/18 12:02 Dose: 2 units Lactobacillus Acidophilus (Bacid Acidophilus) 1 cap PO BID [facility] Last Admin: 08/17/18 09:53 Dose: 1 cap Lidocaine (Lidoderm) 1 ea TD DAILY [facility] Last Admin: 08/17/18 09:51 Dose: 1 ea Metoprolol Succinate (Toprol Xl) 50 mg PO DAILY [facility] Last Admin: 08/17/18 09:54 Dose: 50 mg Mupirocin (Bactroban Ointment) 0 gm TOP BID [facility] Last Admin: 08/17/18 10:01 Dose: 1 applic Pantoprazole Sodium (Protonix Ec Tab) 40 mg PO DAILY [facility] Last Admin: 08/17/18 09:53 Dose: 40 mg Polyethylene Glycol (Miralax) 17 gm PO HS PRN PRN Reason: Constipation Polyethylene Glycol (Miralax) 17 gm PO MWF [facility] Tamsulosin HCl (Flomax) 0.4 mg PO BID [facility] Last Admin: 08/17/18 09:53 Dose: 0.4 mg - Labs Labs: 08/16/18 06:47 08/16/18 06:47 PT 15.6 SECONDS (9.7-12.2) H 07/21/18 20:28 INR 1.4 07/21/18 20:28 APTT 34 SECONDS (21-34) 07/21/18 20:28
--- NOTE | 2018-08-17 17:13 | CP.PCM.PN ---
<CezarJenniferthea E - Last Filed: 08/17/18 17:14> Subjective - Date & Time of Evaluation Date of Evaluation: 08/17/18 Time of Evaluation: 10:50 - Subjective Subjective: Medicine progress note ( Dr. Curiel's service) Patient was seen and examined at bedside, while resting comfortably in bed in no acute distress. Patient denies any acute issues or complaints. As per nursing staff, no acute issues. Patient denies any symptoms of fever, chills, nausea, vomiting, abdominal pain, chest pain, palpitations, shortness of breath. Objective - Vital Signs/Intake and Output Vital Signs (last 24 hours): Temp Pulse Resp BP Pulse Ox 97.5 F L 81 20 145/70 96 08/17/18 07:46 08/17/18 07:46 08/17/18 07:46 08/17/18 09:53 08/17/18 07:46 Intake and Output: 08/17/18 08/17/18 06:59 18:59 Intake Total 500 Output Total 2000 Balance -1500 - Medications Medications: Current Medications Acetaminophen (Tylenol 325mg Tab) 650 mg PO Q6 PRN PRN Reason: Fever >100.4 or Pain Last Admin: 08/07/18 11:22 Dose: 650 mg Amlodipine Besylate (Norvasc) 10 mg PO DAILY [facility] Last Admin: 08/17/18 09:53 Dose: 10 mg Aspirin (Ecotrin) 81 mg PO DAILY [facility] Last Admin: 08/17/18 09:53 Dose: 81 mg Dextrose (Dextrose 50% Inj) 0 ml IV STAT PRN; Protocol PRN Reason: Hypoglycemia Protocol Last Admin: 07/22/18 11:53 Dose: 50 ml Dextrose (Glutose 15) 0 gm PO ONCE PRN; Protocol PRN Reason: Hypoglycemia Protocol Docusate Sodium (Colace) 100 mg PO TID [facility] Last Admin: 08/17/18 13:21 Dose: 100 mg Enalapril Maleate (Vasotec) 30 mg PO DAILY [facility] Last Admin: 08/17/18 09:53 Dose: 30 mg Ferrous Sulfate (Feosol) 325 mg PO TID [facility] Finasteride (Proscar) 5 mg PO DAILY [facility] Last Admin: 08/17/18 09:53 Dose: 5 mg Gabapentin (Neurontin) 100 mg PO TID [facility] Last Admin: 08/17/18 13:21 Dose: 100 mg Glucagon (Glucagen Diagnostic Kit) 0 mg IM STAT PRN; Protocol PRN Reason: Hypoglycemia Protocol Heparin Sodium (Porcine) (Heparin) 5,000 units SC Q12 [facility] Last Admin: 08/17/18 09:54 Dose: 5,000 units Cefazolin Sodium 2,000 mg/ (Sodium Chloride) 50 mls @ 100 mls/hr IVPB Q8H [facility]; Protocol Last Admin: 08/17/18 10:00 Dose: 100 mls/hr Insulin Glargine (Lantus) 30 unit SC DAILY [facility] Last Admin: 08/17/18 09:52 Dose: 30 units Insulin Human Regular (Novolin R) 0 unit SC ACHS [facility]; Protocol Last Admin: 08/17/18 16:55 Dose: 2 units Lactobacillus Acidophilus (Bacid Acidophilus) 1 cap PO BID [facility] Last Admin: 08/17/18 09:53 Dose: 1 cap Lidocaine (Lidoderm) 1 ea TD DAILY [facility] Last Admin: 08/17/18 09:51 Dose: 1 ea Metoprolol Succinate (Toprol Xl) 50 mg PO DAILY [facility] Last Admin: 08/17/18 09:54 Dose: 50 mg Mupirocin (Bactroban Ointment) 0 gm TOP BID [facility] Last Admin: 08/17/18 10:01 Dose: 1 applic Pantoprazole Sodium (Protonix Ec Tab) 40 mg PO DAILY [facility] Last Admin: 08/17/18 09:53 Dose: 40 mg Polyethylene Glycol (Miralax) 17 gm PO HS PRN PRN Reason: Constipation Polyethylene Glycol (Miralax) 17 gm PO MWF [facility] Tamsulosin HCl (Flomax) 0.4 mg PO BID [facility] Last Admin: 08/17/18 09:53 Dose: 0.4 mg - Labs Labs: 08/16/18 06:47 08/16/18 06:47 PT 15.6 SECONDS (9.7-12.2) H 07/21/18 20:28 INR 1.4 07/21/18 20:28 APTT 34 SECONDS (21-34) 07/21/18 20:28 - Constitutional Appears: No Acute Distress - Head Exam Head Exam: ATRAUMATIC Additional comments: ulcerative lesion, erythema with mild granulation tissue on the L nare/malar region - Eye Exam Eye Exam: EOMI - ENT Exam ENT Exam: Mucous Membranes Moist - Respiratory Exam Respiratory Exam: Clear to Ausculation Bilateral, NORMAL BREATHING PATTERN. absent: Chest Wall Tenderness, Decreased Breath Sounds, Rhonchi, Wheezes - Cardiovascular Exam Cardiovascular Exam: REGULAR RHYTHM, +S1, +S2 - GI/Abdominal Exam GI & Abdominal Exam: Soft, Normal Bowel Sounds. absent: Distended, Firm, Guarding, Rigid, Tenderness - Extremities Exam Additional comments: bilateral BKA - Neurological Exam Neurological Exam: Alert, Awake, Oriented x3 - Psychiatric Exam Psychiatric exam: Flat Affect - Skin Skin Exam: Normal Color Assessment and Plan (1) Discitis of lumbosacral region Assessment & Plan: Epidural abscess - MRI L-spine: suspicious for discitis osteomyelitis involving L4-5 intervetebral disc w/ anterior epidural abscess, R iliopsoas fluid collection 1.5x1.9cm - pt reports 3 month history, with radiation and urinary retention - Back pain likely due to this, will hold oxycodone as patient was sleeping peacefully at this time - naproxen 550mg PO q12h PRN - ancef 2000mg IV q8h (07/25) - F/u IR, Dr. Fragoso recs: - psoas collection and spinal abscess too small to drain - F/u NeuroSx, Dr. Olivia recs: - no intervention at this time - F/u ID, Dr. Garcia recs: - 6-8 weeks of abx of ancef 2000mg Q8H; started 07/25/18 - will need through 09/04/18. Patient will continue with long-term antibiotics treatment inpatient due to lack of insurance therefore patient is not eligible for outpatient infusion Status: Acute (2) Dysuria Assessment & Plan: UA: * 2+ LE * WBC: 50 * Negative for nitrate * Awaiting Culture and sensitivity Status: Acute (3) Facial cellulitis Assessment & Plan: L Maxillofacial Ulcer - CT 07/25: soft tissue swelling, no osteomyelitis or drainable fluid - Covered w/ ancef 2000mg IV q8h (07/25) for epidural abscess - Will be on 6-8 week course antibiotic treatment, as per ID for epidural abscess - mupirocin 2g top BID - wound care consulted - Pt following up with plastic surgeon at [facility] sep 04 Status: Acute (4) DM2 (diabetes mellitus, type 2) Assessment & Plan: - HgbA1c 8.9 - medium dose Novolin R ISS - Lantus 30u SC daily (increased from 25 to 30 on 08/13) - Hypoglycemia protocol - Accuchecks ACHS - ASA 81mg PO daily Status: Chronic (5) Hypertension Assessment & Plan: -Enalapril 30 mg PO daily - Metoprolol succinate 50 mg PO daily - Norvasc 10mg PO daily Status: Chronic (6) Urinary retention Assessment & Plan: - CT A/P: bladder wall thickening (cystitis), b/l renal parenchymal high density may be underlying metabolic disorder - I/Os - sagastume catheter (07/27) - flomax 0.4mg PO BID - finasteride 5mg PO daily - Urology consulted: Titi Kam - maintain sagastume until outpatient follow - Sagastume D/C'ed @ 10 AM on 08/13, patient has been urinating freely Status: Acute (7) Community acquired pneumonia Assessment & Plan: - CXR 08/06: no active disease - CT A/P: LLL consolidation vs atelectasis - ancef 2000mg IV q8h (07/25) Status: Resolved (8) Bacteremia Assessment & Plan: - Initially: Blood Cx positive for Staph aureus (07/21); F/u Blood Cx negative 07/28 X 5 days - Urine Cx: no growth - Procal 14.74, Tmax 100.8 (08/01) - Tylenol 650 mg PO Q6H PRN - Echo: LV normal size and EF. LA mildly dilated. Mild TR - F/u cardio, Dr. Ge recs: - consider KASH if BCx+ in future, signed off - F/u ID, Dr. Garcia recs: - 6-8 week course antibiotic treatment, as per ID - ancef 2000mg IV q8h (07/25), as per ID - likely source: spinal abscess Status: Resolved (9) Need for rapid response team activation Assessment & Plan: Resolved Unresponsiveness (07/26/18) Currently AAOx3 Previously - Code stroke * Neurology consulted: Manda - no need for anticonvulsant at this time * Lipid panel: TGL:263, Chol:121, LDL:121 and HDL:15 - EEG: nonspecific abnormalities, no seizures noted - CT head: no acute findings - CTA head and neck: no significant stenoses or abnormalities - Procalcitonin wnl (12.9) - Gabapentin 100 mg PO TID Status: Acute (10) Prophylactic measure Assessment & Plan: DVT: Heparin 5000 units Q12H GI: Protonix 40 mg PO daily and bacid acidophilus 1 tab PO BID PT/OT: [facility] Dispo: pt without insurance and undocumented citizen, pending medicaid acceptance. Likely to stay for duration of antibiotic tx course. All plans and management discussed with Dr. Curiel Status: Acute <Mila Curiel - Last Filed: 08/30/18 20:18> Objective - Vital Signs/Intake and Output Vital Signs (last 24 hours): Temp Pulse Resp BP Pulse Ox 99.8 F H 87 20 143/74 98 08/30/18 16:00 08/30/18 16:00 08/30/18 16:00 08/30/18 16:00 08/30/18 16:00 Intake and Output: 08/30/18 08/31/18 18:59 06:59 Intake Total 250 Output Total 800 Balance -550 - Medications Medications: Current Medications Acetaminophen (Tylenol 325mg Tab) 650 mg PO Q6 PRN PRN Reason: Fever >100.4 or Pain Last Admin: 08/21/18 13:47 Dose: 650 mg Amlodipine Besylate (Norvasc) 10 mg PO DAILY [facility] Last Admin: 08/30/18 10:07 Dose: 10 mg Aspirin (Ecotrin) 81 mg PO DAILY [facility] Last Admin: 08/30/18 10:07 Dose: 81 mg Docusate Sodium (Colace) 100 mg PO TID [facility] Last Admin: 08/30/18 17:54 Dose: 100 mg Enalapril Maleate (Vasotec) 40 mg PO DAILY [facility] Last Admin: 08/30/18 10:09 Dose: 40 mg Famotidine (Pepcid) 20 mg PO DAILY [facility] Last Admin: 08/30/18 10:06 Dose: 20 mg Ferrous Sulfate (Feosol) 325 mg PO TID [facility] Last Admin: 08/30/18 17:55 Dose: 325 mg Finasteride (Proscar) 5 mg PO DAILY [facility] Last Admin: 08/30/18 10:08 Dose: 5 mg Gabapentin (Neurontin) 200 mg PO TID [facility] Last Admin: 08/30/18 17:55 Dose: 200 mg Heparin Sodium (Porcine) (Heparin) 5,000 units SC BID [facility] Last Admin: 08/30/18 17:55 Dose: 5,000 units Cefazolin Sodium 2,000 mg/ (Sodium Chloride) 50 mls @ 100 mls/hr IVPB Q8H [facility]; Protocol Last Admin: 08/30/18 10:12 Dose: 100 mls/hr Insulin Glargine (Lantus) 30 unit SC DAILY [facility] Last Admin: 08/30/18 10:03 Dose: 30 units Insulin Human Regular (Novolin R) 0 unit SC ACHS [facility]; Protocol Last Admin: 08/30/18 17:56 Dose: 4 units Lactobacillus Acidophilus (Bacid Acidophilus) 1 cap PO BID [facility] Last Admin: 08/30/18 17:54 Dose: 1 cap Lidocaine (Lidoderm) 1 ea TD DAILY [facility] Last Admin: 08/30/18 10:03 Dose: 1 ea Metoprolol Succinate (Toprol Xl) 50 mg PO DAILY [facility] Last Admin: 08/30/18 10:06 Dose: 50 mg Mupirocin (Bactroban Ointment) 0 gm TOP DAILY [facility] Last Admin: 08/30/18 10:14 Dose: 1 applic Naproxen (Anaprox) 275 mg PO BID PRN PRN Reason: Pain, moderate (4-7) Last Admin: 08/30/18 14:32 Dose: 275 mg Oxycodone/Acetaminophen (Percocet 5/325 Mg Tab) 1 tab PO DAILY PRN PRN Reason: Pain, moderate (4-7) Stop: 09/05/18 16:29 Polyethylene Glycol (Miralax) 17 gm PO HS PRN PRN Reason: Constipation Polyethylene Glycol (Miralax) 17 gm PO MWF [facility] Last Admin: 08/30/18 10:03 Dose: 17 gm Tamsulosin HCl (Flomax) 0.4 mg PO BID [facility] Last Admin: 08/30/18 17:55 Dose: 0.4 mg Vitamin A (Vitamin A & D Oint Ud Foilpak) 1 ea TOP BID [facility] Last Admin: 08/30/18 17:56 Dose: 1 ea - Labs Labs: 08/30/18 07:55 08/30/18 07:55 PT 15.6 SECONDS (9.7-12.2) H 07/21/18 20:28 INR 1.4 07/21/18 20:28 APTT 34 SECONDS (21-34) 07/21/18 20:28 Attending/Attestation - Attestation I have personally seen and examined this patient.: Yes I have fully participated in the care of the patient.: Yes I have reviewed all pertinent clinical information, including history, physical exam and plan: Yes
[2018-08-18] MEDS: Naproxen 275 mg Tab PO PRN (06:03)
[2018-08-18] MEDS: (Novolin R) Insulin Human Regular 100 units/ml vial SC SCH ×4 (07:43→22:22)
[2018-08-18 07:51] LABS: BASO # 0.1 K/uL (0.0-0.2); BASO % 0.5 % (0.0-2.0); EOS # 0.3 K/uL (0.0-0.7); EOS % 2.8 % (0.0-4.0); HEMOGLOBIN 7.6 g/dL (12.0-18.0); LYMPH # 1.9 K/uL (1.0-4.3); LYMPH % 19.2 % (20.0-40.0); MEAN CELL VOLUME 86.3 fL (80.0-94.0); MEAN CORPUSCULAR HEMOGLOBIN 28.7 pg (27.0-31.0); MEAN CORPUSCULAR HGB CONC 33.3 g/dL (33.0-37.0); MEAN PLATELET VOLUME 9.1 fL (7.2-11.7); MONO # 0.6 K/uL (0.0-0.8); MONO % 6.4 % (0.0-10.0); NEUT # 6.9 K/uL (1.8-7.0); NEUT % 71.1 % (50.0-75.0); RBC 2.66 Mil/uL (4.40-5.90); WHITE BLOOD COUNT 9.7 K/uL (4.8-10.8)
[2018-08-18 08:06] LABS: ALB/GLOB RATIO 0.7 (1.0-2.1); ALBUMIN 2.9 g/dL (3.5-5.0); ALT/SGPT 9 U/L (21-72); AST/SGOT 20 U/L (17-59); BLOOD UREA NITROGEN 20 mg/dL (9-20); CALCIUM 8.4 mg/dl (8.6-10.4); GFR NON-AFRICAN AMERICAN > 60
[2018-08-18] MEDS: Lidocaine 5% Patch TD SCH (10:15)
[2018-08-18] MEDS: Metoprolol Succinate 50 mg XL Tab PO SCH (10:16)
[2018-08-18] MEDS: Pantoprazole 40 mg EC Tab PO SCH (10:16)
[2018-08-18] MEDS: Lactobacillus Acidophilus 500 MU Cap PO SCH ×2 (10:17→17:33)
[2018-08-18] MEDS: (Lantus) Insulin Glargine, Recombinant SC SCH (10:17)
--- NOTE | 2018-08-18 20:41 | CP.PCM.PN ---
Subjective - Date & Time of Evaluation Date of Evaluation: 08/18/18 Time of Evaluation: 15:00 - Subjective Subjective: seen and examined ,no complain,lying comfortable,No nausea,no vomting,no diarrhea getting antibiotics Objective - Vital Signs/Intake and Output Vital Signs (last 24 hours): Temp Pulse Resp BP Pulse Ox 98.8 F 85 20 131/73 98 08/18/18 15:00 08/18/18 15:00 08/18/18 15:00 08/18/18 15:00 08/18/18 15:00 - Medications Medications: Current Medications Acetaminophen (Tylenol 325mg Tab) 650 mg PO Q6 PRN PRN Reason: Fever >100.4 or Pain Last Admin: 08/18/18 06:04 Dose: 650 mg Amlodipine Besylate (Norvasc) 10 mg PO DAILY [facility] Last Admin: 08/18/18 10:17 Dose: 10 mg Aspirin (Ecotrin) 81 mg PO DAILY [facility] Last Admin: 08/18/18 10:16 Dose: 81 mg Dextrose (Dextrose 50% Inj) 0 ml IV STAT PRN; Protocol PRN Reason: Hypoglycemia Protocol Last Admin: 07/22/18 11:53 Dose: 50 ml Dextrose (Glutose 15) 0 gm PO ONCE PRN; Protocol PRN Reason: Hypoglycemia Protocol Docusate Sodium (Colace) 100 mg PO TID [facility] Last Admin: 08/18/18 17:33 Dose: 100 mg Enalapril Maleate (Vasotec) 30 mg PO DAILY [facility] Last Admin: 08/18/18 10:16 Dose: 30 mg Ferrous Sulfate (Feosol) 325 mg PO TID [facility] Finasteride (Proscar) 5 mg PO DAILY [facility] Last Admin: 08/18/18 10:16 Dose: 5 mg Gabapentin (Neurontin) 100 mg PO TID [facility] Last Admin: 08/18/18 17:33 Dose: 100 mg Glucagon (Glucagen Diagnostic Kit) 0 mg IM STAT PRN; Protocol PRN Reason: Hypoglycemia Protocol Cefazolin Sodium 2,000 mg/ (Sodium Chloride) 50 mls @ 100 mls/hr IVPB Q8H [facility]; Protocol Last Admin: 08/18/18 18:06 Dose: 100 mls/hr Insulin Glargine (Lantus) 30 unit SC DAILY [facility] Last Admin: 08/18/18 10:17 Dose: 30 units Insulin Human Regular (Novolin R) 0 unit SC ACHS [facility]; Protocol Last Admin: 08/18/18 17:25 Dose: 3 units Lactobacillus Acidophilus (Bacid Acidophilus) 1 cap PO BID [facility] Last Admin: 08/18/18 17:33 Dose: 1 cap Lidocaine (Lidoderm) 1 ea TD DAILY [facility] Last Admin: 08/18/18 10:15 Dose: 1 ea Metoprolol Succinate (Toprol Xl) 50 mg PO DAILY [facility] Last Admin: 08/18/18 10:16 Dose: 50 mg Mupirocin (Bactroban Ointment) 0 gm TOP BID [facility] Last Admin: 08/18/18 18:04 Dose: 1 applic Naproxen (Anaprox) 275 mg PO BID PRN PRN Reason: Pain, moderate (4-7) Last Admin: 08/18/18 06:03 Dose: 275 mg Pantoprazole Sodium (Protonix Ec Tab) 40 mg PO DAILY [facility] Last Admin: 08/18/18 10:16 Dose: 40 mg Polyethylene Glycol (Miralax) 17 gm PO HS PRN PRN Reason: Constipation Polyethylene Glycol (Miralax) 17 gm PO MWF [facility] Tamsulosin HCl (Flomax) 0.4 mg PO BID [facility] Last Admin: 08/18/18 17:33 Dose: 0.4 mg - Labs Labs: 08/18/18 07:24 08/18/18 07:24 PT 15.6 SECONDS (9.7-12.2) H 07/21/18 20:28 INR 1.4 07/21/18 20:28 APTT 34 SECONDS (21-34) 07/21/18 20:28 - Constitutional Appears: Non-toxic, Chronically Ill - Head Exam Head Exam: absent: NORMAL INSPECTION (basal cell ca with wound covers left nose and face) - Eye Exam Eye Exam: Normal appearance - ENT Exam ENT Exam: Mucous Membranes Moist - Neck Exam Neck Exam: Full ROM - Respiratory Exam Respiratory Exam: Clear to Ausculation Bilateral, NORMAL BREATHING PATTERN - Cardiovascular Exam Cardiovascular Exam: REGULAR RHYTHM - GI/Abdominal Exam GI & Abdominal Exam: Soft, Normal Bowel Sounds - Extremities Exam Extremities Exam: absent: Full ROM (amputated) - Back Exam Back Exam: NORMAL INSPECTION - Neurological Exam Neurological Exam: Awake, Oriented x3 - Psychiatric Exam Psychiatric exam: Normal Mood - Skin Skin Exam: Dry, Normal Color Assessment and Plan - Assessment and Plan (Free Text) Plan: (1) Discitis of lumbosacral region Epidural abscess - MRI L-spine: suspicious for discitis osteomyelitis involving L4-5 intervetebral disc w/ anterior epidural abscess, R iliopsoas fluid collection 1.5x1.9cm - pt reports 3 month history, with radiation and urinary retention - Back pain likely due to this, will hold oxycodone as patient was sleeping peacefully at this time - naproxen 550mg PO q12h PRN - ancef 2000mg IV q8h (07/25) - F/u IR, Dr. Fouzia reyes: - psoas collection and spinal abscess too small to drain - F/u NeuroSx, Dr. Olivia recstella: - no intervention at this time - F/u ID, Dr. Jose reyes: - 6-8 weeks of abx of ancef 2000mg Q8H; started 07/25/18 - will need through 09/04/18. Patient will continue with long-term antibiotics treatment inpatient due to lack of insurance therefore patient is not eligible for outpatient infusion Status: Acute (2) Dysuria,s/p urinary retension and faley cath * Awaiting Culture and sensitivity (3)L Maxillofacial Ulcer/basal cell ca - CT 07/25: soft tissue swelling, no osteomyelitis or drainable fluid - Covered w/ ancef 2000mg IV q8h (07/25) for epidural abscess - Will be on 6-8 week course antibiotic treatment, as per ID for epidural abscess - mupirocin 2g top BID - wound care consulted - Pt following up with plastic surgeon at [facility] sep 04 (4) DM2 (diabetes mellitus, type 2) - HgbA1c 8.9 - medium dose Novolin R ISS - Lantus 30u SC daily (increased from 25 to 30 on 08/13) - Hypoglycemia protocol - Accuchecks ACHS - ASA 81mg PO daily (5) Hypertension -Enalapril 30 mg PO daily - Metoprolol succinate 50 mg PO daily - Norvasc 10mg PO daily (6) Urinary retention - CT A/P: bladder wall thickening (cystitis), b/l renal parenchymal high density may be underlying metabolic disorder - I/Os - sagastume catheter (07/27) - flomax 0.4mg PO BID - finasteride 5mg PO daily - Urology consulted: Titi Kam 7.DVT and GI prophylaxis
--- NOTE | 2018-08-19 07:06 | CP.PCM.PN ---
<Rodriguez An M - Last Filed: 08/19/18 15:53> Subjective - Date & Time of Evaluation Date of Evaluation: 08/19/18 Time of Evaluation: 07:10 - Subjective Subjective: PGY1 Medicine Progress note for Dr. Alston Patient seen and examined at bedside. No overnight events reported. Patient sitting in bed comfortably. Patient states he feels much better from yesterday. His states his pain in his back is minimal, and is worsened with motion. Patient still has burning on urination; however, it is improved. Patient denies hematuria. Patient denies chest pain, SOB, abdominal pain, nausea, vomiting. Patient again was making an attempt to drink juice. Encourage patient for less sugary alternatives in light of his diabetes. Objective - Vital Signs/Intake and Output Vital Signs (last 24 hours): Temp Pulse Resp BP Pulse Ox 98.2 F 86 20 132/72 96 08/18/18 23:26 08/18/18 23:26 08/18/18 23:26 08/18/18 23:26 08/18/18 23:26 Intake and Output: 08/19/18 08/19/18 06:59 18:59 Intake Total 400 Output Total 500 Balance -100 - Medications Medications: Current Medications Acetaminophen (Tylenol 325mg Tab) 650 mg PO Q6 PRN PRN Reason: Fever >100.4 or Pain Last Admin: 08/18/18 06:04 Dose: 650 mg Amlodipine Besylate (Norvasc) 10 mg PO DAILY [facility] Last Admin: 08/18/18 10:17 Dose: 10 mg Aspirin (Ecotrin) 81 mg PO DAILY [facility] Last Admin: 08/18/18 10:16 Dose: 81 mg Dextrose (Dextrose 50% Inj) 0 ml IV STAT PRN; Protocol PRN Reason: Hypoglycemia Protocol Last Admin: 07/22/18 11:53 Dose: 50 ml Dextrose (Glutose 15) 0 gm PO ONCE PRN; Protocol PRN Reason: Hypoglycemia Protocol Docusate Sodium (Colace) 100 mg PO TID [facility] Last Admin: 08/18/18 17:33 Dose: 100 mg Enalapril Maleate (Vasotec) 30 mg PO DAILY [facility] Last Admin: 08/18/18 10:16 Dose: 30 mg Famotidine (Pepcid) 20 mg PO DAILY [facility] Ferrous Sulfate (Feosol) 325 mg PO TID [facility] Finasteride (Proscar) 5 mg PO DAILY [facility] Last Admin: 08/18/18 10:16 Dose: 5 mg Gabapentin (Neurontin) 100 mg PO TID [facility] Last Admin: 08/18/18 17:33 Dose: 100 mg Glucagon (Glucagen Diagnostic Kit) 0 mg IM STAT PRN; Protocol PRN Reason: Hypoglycemia Protocol Heparin Sodium (Porcine) (Heparin) 5,000 units SC BID [facility] Cefazolin Sodium 2,000 mg/ (Sodium Chloride) 50 mls @ 100 mls/hr IVPB Q8H [facility]; Protocol Last Admin: 08/19/18 02:29 Dose: 100 mls/hr Insulin Glargine (Lantus) 30 unit SC DAILY [facility] Last Admin: 08/18/18 10:17 Dose: 30 units Insulin Human Regular (Novolin R) 0 unit SC ACHS [facility]; Protocol Last Admin: 08/18/18 22:22 Dose: Not Given Lactobacillus Acidophilus (Bacid Acidophilus) 1 cap PO BID [facility] Last Admin: 08/18/18 17:33 Dose: 1 cap Lidocaine (Lidoderm) 1 ea TD DAILY [facility] Last Admin: 08/18/18 10:15 Dose: 1 ea Metoprolol Succinate (Toprol Xl) 50 mg PO DAILY [facility] Last Admin: 08/18/18 10:16 Dose: 50 mg Mupirocin (Bactroban Ointment) 0 gm TOP BID [facility] Last Admin: 08/18/18 18:04 Dose: 1 applic Naproxen (Anaprox) 275 mg PO BID PRN PRN Reason: Pain, moderate (4-7) Last Admin: 08/18/18 06:03 Dose: 275 mg Polyethylene Glycol (Miralax) 17 gm PO HS PRN PRN Reason: Constipation Polyethylene Glycol (Miralax) 17 gm PO MWF [facility] Tamsulosin HCl (Flomax) 0.4 mg PO BID [facility] Last Admin: 08/18/18 17:33 Dose: 0.4 mg - Labs Labs: 08/18/18 07:24 08/18/18 07:24 PT 15.6 SECONDS (9.7-12.2) H 07/21/18 20:28 INR 1.4 07/21/18 20:28 APTT 34 SECONDS (21-34) 07/21/18 20:28 - Constitutional Appears: Non-toxic, No Acute Distress - Head Exam Additional comments: ulcerative lesion on the L nare and L malar region, erythema with slight granulation tissue. no drainage noted. cartilage visible. - Eye Exam Eye Exam: Normal appearance - ENT Exam ENT Exam: Mucous Membranes Moist - Respiratory Exam Respiratory Exam: Clear to Ausculation Bilateral, NORMAL BREATHING PATTERN. absent: Rales, Rhonchi, Wheezes - Cardiovascular Exam Cardiovascular Exam: +S1, +S2. absent: Murmur - GI/Abdominal Exam GI & Abdominal Exam: Soft, Normal Bowel Sounds - Extremities Exam Extremities Exam: absent: Pedal Edema Additional comments: bilateral BKA radial pulse palpable - Back Exam Back Exam: absent: CVA tenderness (L), CVA tenderness (R) - Neurological Exam Neurological Exam: Alert, Awake, Oriented x3 - Psychiatric Exam Psychiatric exam: Normal Affect, Normal Mood - Skin Skin Exam: Dry, Normal Color, Warm Assessment and Plan - Assessment and Plan (Free Text) Assessment: 53 yo male with a history of uncontrolled T2DM (s/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 Patient's blood cultures are positive for Staph aureus, currently being treated for bacteremia & discitis & spinal abscess. Plan: Epidural Abscess - MRI L-spine: suspicious for discitis osteomyelitis involving L4-5 intervete bral disc w/ anterior epidural abscess, R iliopsoas fluid collection 1.5x1.9cm - pt reports 3 month history, with radiation and urinary retention - Back pain likely due to this, will hold oxycodone as patient was sleeping peacefully at this time - naproxen 550mg PO q12h PRN - ancef 2000mg IV q8h (07/25) - F/u IR, Dr. Fragoso recs: - psoas collection and spinal abscess too small to drain - F/u NeuroSx, Dr. Olivia recs: - no intervention at this time - F/u ID, Dr. Garcia recs: - 6-8 weeks of abx of ancef 2000mg Q8H; started 07/25/18 - will need through 09/04/18 Dysuria - burning on urination since last night - UA - leuko esterase 2+, WBC 50, squamous 1+ - on ancef 2000mg IVq8h - will await UC prior to adding coverage Anemia - likely of chronic disease - Hgb duration in 8s - 08/18/18 -> 7.6, patient remains asymptomatic - will continue to monitor L Maxillofacial Ulcer - CT 07/25: soft tissue swelling, no osteomyelitis or drainable fluid - Covered w/ ancef 2000mg IV q8h (07/25) for epidural abscess - Will be on 6-8 week course antibiotic treatment, as per ID for epidural abscess - mupirocin 2g top BID - wound care consulted - Pt following up with plastic surgeon at [facility] sep 04 DM type 2 - A1c 8.9 - medium dose Novolin R ISS - blood sugars in 180s - lantus 30u SC daily (increased from 25 to 30 on 08/13) - Hypoglycemia protocol - Accuchecks ACHS - despite persistent education of no sweet/sugar filled drinks, patient continues to have juices at bedside HTN - patient initially HTN in 160s to 170s, no 130s to 150s - ASA 81 mg PO daily - Enalapril 30 mg PO daily - Metoprolol succinate 50 mg PO daily - Norvasc 10mg PO daily Urinary Retention Resolved - CT A/P: bladder wall thickening (cystitis), b/l renal parenchymal high density may be underlying metabolic disorder - I/Os - sagastume catheter (07/27) - flomax 0.4mg PO BID - finasteride 5mg PO daily - Urology consulted: Titi Kam - maintain sagastume until outpatient follow - Sagastume D/C'ed @ 10 AM on 08/13, patient has been urinating freely CAP Resolved - CXR 08/06: no active disease - CT A/P: LLL consolidation vs atelectasis - ancef 2000mg IV q8h (07/25) Staph Aureus Bacteremia: Resolved - Initially: Blood Cx positive for Staph aureus (07/21); F/u Blood Cx negative 07/28 X 5 days - Urine Cx: no growth - Procal 14.74, Tmax 100.8 (08/01) - Tylenol 650 mg PO Q6H PRN - Echo: LV normal size and EF. LA mildly dilated. Mild TR - F/u cardio, Dr. Ge recs: - consider KASH if BCx+ in future, signed off - F/u ID, Dr. Garcia recs: - 6-8 week course antibiotic treatment, as per ID - ancef 2000mg IV q8h (07/25), as per ID - likely source: spinal abscess Unresponsiveness Resolved AAOx3 Previously - Code stroke - EEG: nonspecific abnormalities, no seizures noted - CT head: no acute findings - CTA head and neck: no significant stenoses or abnormalities - PRL wnl (12.9) - Gabapentin 100 mg PO TID - Neurology consulted: Manda - no need for anticonvulsant at this time Ppx: DVT: Heparin 5000 units Q12H GI: Protonix 40 mg PO daily Labs: CBC/ CMP Q2D Mag/Phs Q4D PT/OT: GARRETT Dispo: pt without insurance and undocumented citizen, pending medicaid accep tance. Likely to stay for duration of antibiotic tx course. D/w Dr. Alecia An PGY1 <Galen Alston H - Last Filed: 08/19/18 16:39> Objective - Vital Signs/Intake and Output Vital Signs (last 24 hours): Temp Pulse Resp BP Pulse Ox 98.4 F 78 20 151/77 H 95 08/19/18 15:44 08/19/18 15:44 08/19/18 15:44 08/19/18 15:44 08/19/18 15:44 Intake and Output: 08/19/18 08/19/18 06:59 18:59 Intake Total 400 530 Output Total 500 350 Balance -100 180 - Medications Medications: Current Medications Acetaminophen (Tylenol 325mg Tab) 650 mg PO Q6 PRN PRN Reason: Fever >100.4 or Pain Last Admin: 08/18/18 06:04 Dose: 650 mg Amlodipine Besylate (Norvasc) 10 mg PO DAILY [facility] Last Admin: 08/19/18 10:06 Dose: 10 mg Aspirin (Ecotrin) 81 mg PO DAILY [facility] Last Admin: 08/19/18 10:06 Dose: 81 mg Dextrose (Dextrose 50% Inj) 0 ml IV STAT PRN; Protocol PRN Reason: Hypoglycemia Protocol Last Admin: 07/22/18 11:53 Dose: 50 ml Dextrose (Glutose 15) 0 gm PO ONCE PRN; Protocol PRN Reason: Hypoglycemia Protocol Docusate Sodium (Colace) 100 mg PO TID [facility] Last Admin: 08/19/18 14:30 Dose: 100 mg Enalapril Maleate (Vasotec) 30 mg PO DAILY [facility] Last Admin: 08/19/18 10:07 Dose: 30 mg Famotidine (Pepcid) 20 mg PO DAILY [facility] Last Admin: 08/19/18 10:06 Dose: 20 mg Ferrous Sulfate (Feosol) 325 mg PO TID [facility] Last Admin: 08/19/18 14:30 Dose: 325 mg Finasteride (Proscar) 5 mg PO DAILY [facility] Last Admin: 08/19/18 10:07 Dose: 5 mg Gabapentin (Neurontin) 100 mg PO TID [facility] Last Admin: 08/19/18 14:30 Dose: 100 mg Glucagon (Glucagen Diagnostic Kit) 0 mg IM STAT PRN; Protocol PRN Reason: Hypoglycemia Protocol Heparin Sodium (Porcine) (Heparin) 5,000 units SC BID [facility] Last Admin: 08/19/18 10:09 Dose: Not Given Cefazolin Sodium 2,000 mg/ (Sodium Chloride) 50 mls @ 100 mls/hr IVPB Q8H [facility]; Protocol Last Admin: 08/19/18 11:29 Dose: 100 mls/hr Insulin Glargine (Lantus) 30 unit SC DAILY [facility] Last Admin: 08/19/18 10:08 Dose: 30 units Insulin Human Regular (Novolin R) 0 unit SC ACHS [facility]; Protocol Last Admin: 08/19/18 11:54 Dose: 2 units Lactobacillus Acidophilus (Bacid Acidophilus) 1 cap PO BID [facility] Last Admin: 08/19/18 10:06 Dose: 1 cap Lidocaine (Lidoderm) 1 ea TD DAILY [facility] Last Admin: 08/19/18 10:07 Dose: 1 ea Metoprolol Succinate (Toprol Xl) 50 mg PO DAILY [facility] Last Admin: 08/19/18 10:07 Dose: 50 mg Mupirocin (Bactroban Ointment) 0 gm TOP BID [facility] Last Admin: 08/19/18 10:06 Dose: 1 applic Naproxen (Anaprox) 275 mg PO BID PRN PRN Reason: Pain, moderate (4-7) Last Admin: 08/19/18 10:09 Dose: 275 mg Polyethylene Glycol (Miralax) 17 gm PO HS PRN PRN Reason: Constipation Polyethylene Glycol (Miralax) 17 gm PO MWF [facility] Last Admin: 08/19/18 10:00 Dose: 17 gm Tamsulosin HCl (Flomax) 0.4 mg PO BID [facility] Last Admin: 08/19/18 10:06 Dose: 0.4 mg - Labs Labs: 08/18/18 07:24 08/18/18 07:24 PT 15.6 SECONDS (9.7-12.2) H 07/21/18 20:28 INR 1.4 07/21/18 20:28 APTT 34 SECONDS (21-34) 07/21/18 20:28
[2018-08-19] MEDS: (Novolin R) Insulin Human Regular 100 units/ml vial SC SCH ×4 (08:10→21:40)
[2018-08-19] MEDS: POLYETHYLENE GLYCOL 3350 17 GM/Dose PACKET PO SCH (10:00)
[2018-08-19] MEDS: Lactobacillus Acidophilus 500 MU Cap PO SCH ×2 (10:06→17:56)
[2018-08-19] MEDS: Lidocaine 5% Patch TD SCH (10:07)
[2018-08-19] MEDS: Metoprolol Succinate 50 mg XL Tab PO SCH (10:07)
[2018-08-19] MEDS: (Lantus) Insulin Glargine, Recombinant SC SCH (10:08)
[2018-08-19] MEDS: Naproxen 275 mg Tab PO PRN ×2 (10:09→18:00)
--- NOTE | 2018-08-20 06:29 | CP.PCM.PN ---
<Rodriguez An - Last Filed: 08/20/18 13:40> Subjective - Date & Time of Evaluation Date of Evaluation: 08/20/18 Time of Evaluation: 07:30 - Subjective Subjective: PGY1 Medicine Progress note for Dr. Alston Patient seen and examined at bedside. No overnight events reported. Patient sitting in bed comfortably. Patient states he feels much better from yesterday. His states his pain in his back is minimal, and is worsened with motion. Patient still has burning on urination; and is stating is is worsening. Additionally patient is saying he is urinating less amount than previously. Patient denies chest pain, SOB, abdominal pain, nausea, vomiting. Patient again was making an attempt to drink juice. Encourage patient for less sugary alternatives in light of his diabetes. Objective - Vital Signs/Intake and Output Vital Signs (last 24 hours): Temp Pulse Resp BP Pulse Ox 97.4 F L 62 20 150/75 95 08/20/18 00:17 08/20/18 00:17 08/20/18 00:17 08/20/18 00:17 08/20/18 00:17 Intake and Output: 08/19/18 08/20/18 18:59 06:59 Intake Total 530 300 Output Total 350 600 Balance 180 -300 - Medications Medications: Current Medications Acetaminophen (Tylenol 325mg Tab) 650 mg PO Q6 PRN PRN Reason: Fever >100.4 or Pain Last Admin: 08/18/18 06:04 Dose: 650 mg Amlodipine Besylate (Norvasc) 10 mg PO DAILY [facility] Last Admin: 08/19/18 10:06 Dose: 10 mg Aspirin (Ecotrin) 81 mg PO DAILY [facility] Last Admin: 08/19/18 10:06 Dose: 81 mg Docusate Sodium (Colace) 100 mg PO TID [facility] Last Admin: 08/19/18 17:56 Dose: 100 mg Enalapril Maleate (Vasotec) 30 mg PO DAILY [facility] Last Admin: 08/19/18 10:07 Dose: 30 mg Famotidine (Pepcid) 20 mg PO DAILY [facility] Last Admin: 08/19/18 10:06 Dose: 20 mg Ferrous Sulfate (Feosol) 325 mg PO TID [facility] Last Admin: 08/19/18 17:56 Dose: 325 mg Finasteride (Proscar) 5 mg PO DAILY [facility] Last Admin: 08/19/18 10:07 Dose: 5 mg Gabapentin (Neurontin) 100 mg PO TID [facility] Last Admin: 08/19/18 17:56 Dose: 100 mg Heparin Sodium (Porcine) (Heparin) 5,000 units SC BID [facility] Last Admin: 08/19/18 17:56 Dose: 5,000 units Cefazolin Sodium 2,000 mg/ (Sodium Chloride) 50 mls @ 100 mls/hr IVPB Q8H [facility]; Protocol Last Admin: 08/20/18 02:25 Dose: 100 mls/hr Insulin Glargine (Lantus) 30 unit SC DAILY [facility] Last Admin: 08/19/18 10:08 Dose: 30 units Insulin Human Regular (Novolin R) 0 unit SC ACHS [facility]; Protocol Last Admin: 08/19/18 21:40 Dose: Not Given Lactobacillus Acidophilus (Bacid Acidophilus) 1 cap PO BID [facility] Last Admin: 08/19/18 17:56 Dose: 1 cap Lidocaine (Lidoderm) 1 ea TD DAILY [facility] Last Admin: 08/19/18 10:07 Dose: 1 ea Metoprolol Succinate (Toprol Xl) 50 mg PO DAILY [facility] Last Admin: 08/19/18 10:07 Dose: 50 mg Mupirocin (Bactroban Ointment) 0 gm TOP BID [facility] Last Admin: 08/19/18 18:04 Dose: 1 applic Naproxen (Anaprox) 275 mg PO BID PRN PRN Reason: Pain, moderate (4-7) Last Admin: 08/19/18 18:00 Dose: 275 mg Polyethylene Glycol (Miralax) 17 gm PO HS PRN PRN Reason: Constipation Polyethylene Glycol (Miralax) 17 gm PO MWF [facility] Last Admin: 08/19/18 10:00 Dose: 17 gm Tamsulosin HCl (Flomax) 0.4 mg PO BID [facility] Last Admin: 08/19/18 18:37 Dose: 0.4 mg - Labs Labs: 08/18/18 07:24 08/18/18 07:24 PT 15.6 SECONDS (9.7-12.2) H 07/21/18 20:28 INR 1.4 07/21/18 20:28 APTT 34 SECONDS (21-34) 07/21/18 20:28 - Constitutional Appears: Non-toxic, No Acute Distress - Head Exam Head Exam: NORMAL INSPECTION, NORMOCEPHALIC Additional comments: ulcerative lesion on the L nare and L malar region, erythema with slight granulation tissue. no drainage noted. cartilage visible. - Respiratory Exam Respiratory Exam: Clear to Ausculation Bilateral, NORMAL BREATHING PATTERN. absent: Rales, Rhonchi, Wheezes - Cardiovascular Exam Cardiovascular Exam: +S1, +S2 - GI/Abdominal Exam GI & Abdominal Exam: Soft, Normal Bowel Sounds. absent: Guarding, Rigid - Extremities Exam Extremities Exam: Full ROM Additional comments: bilateral BKA radial pulse palpable - Back Exam Back Exam: absent: CVA tenderness (L), CVA tenderness (R) - Neurological Exam Neurological Exam: Alert, Awake, Oriented x3 - Psychiatric Exam Psychiatric exam: Normal Affect, Normal Mood - Skin Skin Exam: Dry, Intact, Normal Color, Warm Assessment and Plan - Assessment and Plan (Free Text) Assessment: 53 yo male with a history of uncontrolled T2DM (s/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 Patient's blood cultures are positive for Staph aureus, currently being treated for bacteremia & discitis & spinal abscess. Plan: Epidural Abscess - MRI L-spine: suspicious for discitis osteomyelitis involving L4-5 intervetebral disc w/ anterior epidural abscess, R iliopsoas fluid collection 1.5x1.9cm - pt reports 3 month history, with radiation and urinary retention - Back pain likely due to this, will hold oxycodone as patient was sleeping peacefully at this time - naproxen 550mg PO q12h PRN - ancef 2000mg IV q8h (07/25) - F/u IR, Dr. Fragoso recs: - psoas collection and spinal abscess too small to drain - F/u NeuroSx, Dr. Olivia recs: - no intervention at this time - F/u ID, Dr. Garcia recs: - 6-8 weeks of abx of ancef 2000mg Q8H; started 07/25/18 - will need through 09/04/18 Dysuria - burning on urination since last night - UA - leuko esterase 2+, WBC 50, squamous 1+ - UC - yeast species > [id number] cfu/ml - fluconazole 100 mg PO daily X 3 days - bladder scan revealed < 200 ml urine Anemia - likely of chronic disease - Hgb duration in 8s - 08/19/18 -> 8.0, patient remains asymptomatic - will continue to monitor L Maxillofacial Ulcer - CT 07/25: soft tissue swelling, no osteomyelitis or drainable fluid - Covered w/ ancef 2000mg IV q8h (07/25) for epidural abscess - Will be on 6-8 week course antibiotic treatment, as per ID for epidural abscess - mupirocin 2g top BID - wound care consulted - Pt following up with plastic surgeon at [facility] sep 04 DM type 2 - A1c 8.9 - medium dose Novolin R ISS - blood sugars in 180s - lantus 30u SC daily (increased from 25 to 30 on 08/13) - Hypoglycemia protocol - Accuchecks ACHS - despite persistent education of no sweet/sugar filled drinks, patient continues to have juices at bedside HTN - patient initially HTN in 160s to 170s, no 130s to 150s - ASA 81 mg PO daily - Enalapril 30 mg PO daily - Metoprolol succinate 50 mg PO daily - Norvasc 10mg PO daily Urinary Retention Resolved - CT A/P: bladder wall thickening (cystitis), b/l renal parenchymal high density may be underlying metabolic disorder - I/Os - sagastume catheter (07/27) - flomax 0.4mg PO BID - finasteride 5mg PO daily - Urology consulted: Titi Kam - maintain sagastume until outpatient follow - Sagastume D/C'ed @ 10 AM on 08/13, patient has been urinating freely CAP Resolved - CXR 08/06: no active disease - CT A/P: LLL consolidation vs atelectasis - ancef 2000mg IV q8h (07/25) Staph Aureus Bacteremia: Resolved - Initially: Blood Cx positive for Staph aureus (07/21); F/u Blood Cx negative 07/28 X 5 days - Urine Cx: no growth - Procal 14.74, Tmax 100.8 (08/01) - Tylenol 650 mg PO Q6H PRN - Echo: LV normal size and EF. LA mildly dilated. Mild TR - F/u cardio, Dr. Ge recs: - consider KASH if BCx+ in future, signed off - F/u ID, Dr. Garcia recs: - 6-8 week course antibiotic treatment, as per ID - ancef 2000mg IV q8h (07/25), as per ID - likely source: spinal abscess Unresponsiveness Resolved AAOx3 Previously - Code stroke - EEG: nonspecific abnormalities, no seizures noted - CT head: no acute findings - CTA head and neck: no significant stenoses or abnormalities - PRL wnl (12.9) - Gabapentin 100 mg PO TID - Neurology consulted: Manda - no need for anticonvulsant at this time Ppx: DVT: Heparin 5000 units Q12H GI: Protonix 40 mg PO daily Labs: CBC/ CMP Q2D Mag/Phs Q4D PT/OT: GAR[facility]TT Dispo: pt without insurance and undocumented citizen, pending medicaid acceptance. Likely to stay for duration of antibiotic tx course. D/w Dr. Alecia An PGY1 <Galen Alston H - Last Filed: 08/20/18 14:36> Objective - Vital Signs/Intake and Output Vital Signs (last 24 hours): Temp Pulse Resp BP Pulse Ox 97.4 F L 62 20 154/79 H 95 08/20/18 00:17 08/20/18 00:17 08/20/18 00:17 08/20/18 10:33 08/20/18 00:17 Intake and Output: 08/20/18 08/20/18 06:59 18:59 Intake Total 650 Output Total 1400 Balance -750 - Medications Medications: Current Medications Acetaminophen (Tylenol 325mg Tab) 650 mg PO Q6 PRN PRN Reason: Fever >100.4 or Pain Last Admin: 08/18/18 06:04 Dose: 650 mg Amlodipine Besylate (Norvasc) 10 mg PO DAILY [facility] Last Admin: 08/20/18 10:34 Dose: 10 mg Aspirin (Ecotrin) 81 mg PO DAILY [facility] Last Admin: 08/20/18 10:34 Dose: 81 mg Docusate Sodium (Colace) 100 mg PO TID [facility] Last Admin: 08/20/18 14:05 Dose: 100 mg Enalapril Maleate (Vasotec) 30 mg PO DAILY [facility] Last Admin: 08/20/18 10:33 Dose: 30 mg Famotidine (Pepcid) 20 mg PO DAILY [facility] Last Admin: 08/20/18 10:34 Dose: 20 mg Ferrous Sulfate (Feosol) 325 mg PO TID [facility] Last Admin: 08/20/18 14:05 Dose: 325 mg Finasteride (Proscar) 5 mg PO DAILY [facility] Last Admin: 08/20/18 10:33 Dose: 5 mg Fluconazole (Diflucan) 100 mg PO DAILY [facility]; Protocol Stop: 08/23/18 13:01 Last Admin: 08/20/18 14:05 Dose: 100 mg Gabapentin (Neurontin) 100 mg PO TID [facility] Last Admin: 08/20/18 14:05 Dose: 100 mg Heparin Sodium (Porcine) (Heparin) 5,000 units SC BID [facility] Last Admin: 08/20/18 10:35 Dose: 5,000 units Cefazolin Sodium 2,000 mg/ (Sodium Chloride) 50 mls @ 100 mls/hr IVPB Q8H [facility]; Protocol Last Admin: 08/20/18 12:30 Dose: 100 mls/hr Insulin Glargine (Lantus) 30 unit SC DAILY [facility] Last Admin: 08/20/18 10:35 Dose: 30 units Insulin Human Regular (Novolin R) 0 unit SC ACHS [facility]; Protocol Last Admin: 08/20/18 12:30 Dose: 3 units Lactobacillus Acidophilus (Bacid Acidophilus) 1 cap PO BID [facility] Last Admin: 08/20/18 10:35 Dose: 1 cap Lidocaine (Lidoderm) 1 ea TD DAILY [facility] Last Admin: 08/20/18 10:36 Dose: 1 ea Metoprolol Succinate (Toprol Xl) 50 mg PO DAILY [facility] Last Admin: 08/20/18 10:33 Dose: 50 mg Mupirocin (Bactroban Ointment) 0 gm TOP BID [facility] Last Admin: 08/20/18 10:43 Dose: 1 applic Naproxen (Anaprox) 275 mg PO BID PRN PRN Reason: Pain, moderate (4-7) Last Admin: 08/20/18 10:36 Dose: 275 mg Polyethylene Glycol (Miralax) 17 gm PO HS PRN PRN Reason: Constipation Polyethylene Glycol (Miralax) 17 gm PO MWF [facility] Last Admin: 08/19/18 10:00 Dose: 17 gm Tamsulosin HCl (Flomax) 0.4 mg PO BID [facility] Last Admin: 08/20/18 10:34 Dose: 0.4 mg - Labs Labs: 08/20/18 07:14 08/20/18 07:14 PT 15.6 SECONDS (9.7-12.2) H 07/21/18 20:28 INR 1.4 07/21/18 20:28 APTT 34 SECONDS (21-34) 07/21/18 20:28 Attending/Attestation - Attestation I have personally seen and examined this patient.: Yes I have fully participated in the care of the patient.: Yes I have reviewed all pertinent clinical information, including history, physical exam and plan: Yes Notes (Text): 08/20/18 14:28 Medical attending: Patient was seen and examined by me with the medical residents Patient this morning was able to tell us that he has been having some burning with urination and the culture suggest there was yeast growth. Will start diflucan today. We also did a bladder scan but there was 200 cc reported - he is already on flomax and later if need to we can change that to twice a day as well. He previously had a sagastume cathter but this was discontinued last week. Galen Alston
[2018-08-20 07:39] LABS: BASO % 0.6 % (0.0-2.0); EOS # 0.3 K/uL (0.0-0.7); EOS % 3.9 % (0.0-4.0); LYMPH # 1.8 K/uL (1.0-4.3); LYMPH % 24.2 % (20.0-40.0); MEAN CELL VOLUME 86.1 fL (80.0-94.0); MEAN CORPUSCULAR HGB CONC 33.7 g/dL (33.0-37.0); MEAN PLATELET VOLUME 8.6 fL (7.2-11.7); MONO # 0.6 K/uL (0.0-0.8); MONO % 8.2 % (0.0-10.0); NEUT # 4.6 K/uL (1.8-7.0); NEUT % 63.1 % (50.0-75.0); RBC 2.74 Mil/uL (4.40-5.90); RED CELL DISTRIBUTION WIDTH 14.2 % (11.5-14.5); WHITE BLOOD COUNT 7.3 K/uL (4.8-10.8)
[2018-08-20 07:57] LABS: ALB/GLOB RATIO 0.7 (1.0-2.1); ALBUMIN 2.9 g/dL (3.5-5.0); ALT/SGPT 10 U/L (21-72); AST/SGOT 18 U/L (17-59); BLOOD UREA NITROGEN 21 mg/dL (9-20); CALCIUM 8.6 mg/dl (8.6-10.4); GFR NON-AFRICAN AMERICAN > 60
[2018-08-20] MEDS: (Novolin R) Insulin Human Regular 100 units/ml vial SC SCH ×4 (08:20→22:10)
[2018-08-20] MEDS: Metoprolol Succinate 50 mg XL Tab PO SCH (10:33)
[2018-08-20] MEDS: Lactobacillus Acidophilus 500 MU Cap PO SCH ×2 (10:35→18:43)
[2018-08-20] MEDS: (Lantus) Insulin Glargine, Recombinant SC SCH (10:35)
[2018-08-20] MEDS: Naproxen 275 mg Tab PO PRN (10:36)
[2018-08-20] MEDS: Lidocaine 5% Patch TD SCH (10:36)
[2018-08-20] MEDS ORDERED: Fluconazole IV 200mg/100 ml NS 100 MG in Premixed IV 1 EA IVPB SCH (13:00)
--- NOTE | 2018-08-21 07:03 | CP.PCM.PN ---
<Rodriguez An - Last Filed: 08/21/18 13:12> Subjective - Date & Time of Evaluation Date of Evaluation: 08/21/18 Time of Evaluation: 07:05 - Subjective Subjective: PGY1 Medicine Progress note for Dr. Alston Patient seen and examined at bedside. No overnight events reported. Patient sitting in bed comfortably. Patient states he feels much better from yesterday. His states his pain in his back is minimal, and is worsened with motion. Patient still has burning on urination; and is stating is is worsening. Additionally patient is saying he is having difficulty starting to urinate and feels as if he is not voiding completely. Patient denies chest pain, SOB, abdominal pain, nausea, vomiting. Patient again was making an attempt to drink juice. Encourage patient for less sugary alternatives in light of his diabetes. Objective - Vital Signs/Intake and Output Vital Signs (last 24 hours): Temp Pulse Resp BP Pulse Ox 98.1 F 79 20 130/70 95 08/20/18 19:04 08/20/18 19:04 08/20/18 19:04 08/20/18 19:04 08/20/18 19:04 Intake and Output: 08/21/18 08/21/18 06:59 18:59 Intake Total 680 Output Total 620 Balance 60 - Medications Medications: Current Medications Acetaminophen (Tylenol 325mg Tab) 650 mg PO Q6 PRN PRN Reason: Fever >100.4 or Pain Last Admin: 08/18/18 06:04 Dose: 650 mg Amlodipine Besylate (Norvasc) 10 mg PO DAILY [facility] Last Admin: 08/20/18 10:34 Dose: 10 mg Aspirin (Ecotrin) 81 mg PO DAILY [facility] Last Admin: 08/20/18 10:34 Dose: 81 mg Docusate Sodium (Colace) 100 mg PO TID [facility] Last Admin: 08/20/18 18:40 Dose: 100 mg Enalapril Maleate (Vasotec) 30 mg PO DAILY [facility] Last Admin: 08/20/18 10:33 Dose: 30 mg Famotidine (Pepcid) 20 mg PO DAILY [facility] Last Admin: 08/20/18 10:34 Dose: 20 mg Ferrous Sulfate (Feosol) 325 mg PO TID [facility] Last Admin: 08/20/18 18:40 Dose: 325 mg Finasteride (Proscar) 5 mg PO DAILY [facility] Last Admin: 08/20/18 10:33 Dose: 5 mg Fluconazole (Diflucan) 100 mg PO DAILY [facility]; Protocol Stop: 08/23/18 13:01 Last Admin: 08/20/18 14:05 Dose: 100 mg Gabapentin (Neurontin) 100 mg PO TID [facility] Last Admin: 08/20/18 18:40 Dose: 100 mg Heparin Sodium (Porcine) (Heparin) 5,000 units SC BID [facility] Last Admin: 08/20/18 18:40 Dose: 5,000 units Cefazolin Sodium 2,000 mg/ (Sodium Chloride) 50 mls @ 100 mls/hr IVPB Q8H [facility]; Protocol Last Admin: 08/21/18 03:09 Dose: 100 mls/hr Insulin Glargine (Lantus) 30 unit SC DAILY [facility] Last Admin: 08/20/18 10:35 Dose: 30 units Insulin Human Regular (Novolin R) 0 unit SC ACHS [facility]; Protocol Last Admin: 08/20/18 22:10 Dose: Not Given Lactobacillus Acidophilus (Bacid Acidophilus) 1 cap PO BID [facility] Last Admin: 08/20/18 18:43 Dose: 1 cap Lidocaine (Lidoderm) 1 ea TD DAILY [facility] Last Admin: 08/20/18 10:36 Dose: 1 ea Metoprolol Succinate (Toprol Xl) 50 mg PO DAILY [facility] Last Admin: 08/20/18 10:33 Dose: 50 mg Mupirocin (Bactroban Ointment) 0 gm TOP BID [facility] Last Admin: 08/20/18 18:47 Dose: 1 applic Naproxen (Anaprox) 275 mg PO BID PRN PRN Reason: Pain, moderate (4-7) Last Admin: 08/20/18 10:36 Dose: 275 mg Polyethylene Glycol (Miralax) 17 gm PO HS PRN PRN Reason: Constipation Polyethylene Glycol (Miralax) 17 gm PO MWF [facility] Last Admin: 08/19/18 10:00 Dose: 17 gm Tamsulosin HCl (Flomax) 0.4 mg PO BID [facility] Last Admin: 08/20/18 18:40 Dose: 0.4 mg - Labs Labs: 08/20/18 07:14 08/20/18 07:14 PT 15.6 SECONDS (9.7-12.2) H 07/21/18 20:28 INR 1.4 07/21/18 20:28 APTT 34 SECONDS (21-34) 07/21/18 20:28 - Constitutional Appears: Non-toxic, No Acute Distress - Head Exam Head Exam: NORMAL INSPECTION Additional comments: ulcerative lesion on the L nare and L malar region, erythema with slight gran ulation tissue. no drainage noted. cartilage visible. - Eye Exam Eye Exam: Normal appearance - ENT Exam ENT Exam: Mucous Membranes Moist - Respiratory Exam Respiratory Exam: Clear to Ausculation Bilateral, NORMAL BREATHING PATTERN. absent: Rales, Rhonchi, Wheezes - Cardiovascular Exam Cardiovascular Exam: +S1, +S2 - GI/Abdominal Exam GI & Abdominal Exam: Soft, Normal Bowel Sounds. absent: Guarding, Rigid, Tenderness - Extremities Exam Extremities Exam: Full ROM Additional comments: bilateral BKA radial pulse palpable - Back Exam Back Exam: absent: CVA tenderness (L), CVA tenderness (R) Additional comments: no sacral ulcers - Neurological Exam Neurological Exam: Alert, Awake, Oriented x3 - Psychiatric Exam Psychiatric exam: Normal Affect, Normal Mood - Skin Skin Exam: Dry, Intact, Normal Color, Warm Assessment and Plan - Assessment and Plan (Free Text) Assessment: 53 yo male with a history of uncontrolled T2DM (s/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 Patient's blood cultures are positive for Staph aureus, currently being treated for bacteremia & discitis & spinal abscess. Plan: Epidural Abscess - MRI L-spine: suspicious for discitis osteomyelitis involving L4-5 intervetebral disc w/ anterior epidural abscess, R iliopsoas fluid collection 1.5x1.9cm - pt reports 3 month history, with radiation and urinary retention - Back pain likely due to this, will hold oxycodone as patient was sleeping peacefully at this time - naproxen 550mg PO q12h PRN - ancef 2000mg IV q8h (07/25) - F/u IR, Dr. Fragoso recs: - psoas collection and spinal abscess too small to drain - F/u NeuroSx, Dr. Olivia recs: - no intervention at this time - F/u ID, Dr. Garcia recs: - 6-8 weeks of abx of ancef 2000mg Q8H; started 07/25/18 - will need through 09/04/18 Dysuria - burning on urination since last night - UA - leuko esterase 2+, WBC 50, squamous 1+ - UC - yeast species > [id number] cfu/ml - fluconazole 100 mg PO daily X 3 days - bladder scan revealed < 200 ml urine 08/20 - Added pyridium 100 mg TIDPC for 2 days for symptom relief Anemia - likely of chronic disease - Hgb duration in 8s - 08/19/18 -> 8.0, patient remains asymptomatic - will continue to monitor L Maxillofacial Ulcer - CT 07/25: soft tissue swelling, no osteomyelitis or drainable fluid - Covered w/ ancef 2000mg IV q8h (07/25) for epidural abscess - Will be on 6-8 week course antibiotic treatment, as per ID for epidural abscess - mupirocin 2g top BID - wound care consulted - Pt following up with plastic surgeon at [facility] sep 04 DM type 2 - A1c 8.9 - medium dose Novolin R ISS - blood sugars in 180s - lantus 30u SC daily (increased from 25 to 30 on 08/13) - Hypoglycemia protocol - Accuchecks ACHS - despite persistent education of no sweet/sugar filled drinks, patient continues to have juices at bedside HTN - patient initially HTN in 160s to 170s, no 130s to 150s - ASA 81 mg PO daily - Enalapril 30 mg PO daily - Metoprolol succinate 50 mg PO daily - Norvasc 10mg PO daily Urinary Retention Resolved - CT A/P: bladder wall thickening (cystitis), b/l renal parenchymal high density may be underlying metabolic disorder - I/Os - sagastume catheter (07/27) - flomax 0.4mg PO BID - finasteride 5mg PO daily - Urology consulted: Titi Kam - maintain sagastume until outpatient follow - Sagastume D/C'ed @ 10 AM on 08/13, patient has been urinating freely CAP Resolved - CXR 08/06: no active disease - CT A/P: LLL consolidation vs atelectasis - ancef 2000mg IV q8h (07/25) Staph Aureus Bacteremia: Resolved - Initially: Blood Cx positive for Staph aureus (07/21); F/u Blood Cx negative 11/4 X 5 days - Urine Cx: no growth - Procal 14.74, Tmax 100.8 (08/01) - Tylenol 650 mg PO Q6H PRN - Echo: LV normal size and EF. LA mildly dilated. Mild TR - F/u cardio, Dr. Ge recs: - consider KASH if BCx+ in future, signed off - F/u ID, Dr. Garcia recs: - 6-8 week course antibiotic treatment, as per ID - ancef 2000mg IV q8h (07/25), as per ID - likely source: spinal abscess Unresponsiveness Resolved AAOx3 Previously - Code stroke - EEG: nonspecific abnormalities, no seizures noted - CT head: no acute findings - CTA head and neck: no significant stenoses or abnormalities - PRL wnl (12.9) - Gabapentin 100 mg PO TID - Neurology consulted: Manda - no need for anticonvulsant at this time Ppx: DVT: Heparin 5000 units Q12H GI: Protonix 40 mg PO daily Labs: CBC/ CMP Q2D Mag/Phs Q4D PT/OT: GARRETT Dispo: pt without insurance and undocumented citizen, pending medicaid acceptance. Likely to stay for duration of antibiotic tx course. <Galen Alston H - Last Filed: 08/21/18 14:00> Objective - Vital Signs/Intake and Output Vital Signs (last 24 hours): Temp Pulse Resp BP Pulse Ox 98.1 F 81 20 156/79 H 95 08/21/18 07:00 08/21/18 07:00 08/21/18 07:00 08/21/18 10:05 08/21/18 07:00 Intake and Output: 08/21/18 08/21/18 06:59 18:59 Intake Total 680 Output Total 620 Balance 60 - Medications Medications: Current Medications Acetaminophen (Tylenol 325mg Tab) 650 mg PO Q6 PRN PRN Reason: Fever >100.4 or Pain Last Admin: 08/21/18 13:47 Dose: 650 mg Amlodipine Besylate (Norvasc) 10 mg PO DAILY [facility] Last Admin: 08/21/18 10:06 Dose: 10 mg Aspirin (Ecotrin) 81 mg PO DAILY [facility] Last Admin: 08/21/18 10:06 Dose: 81 mg Docusate Sodium (Colace) 100 mg PO TID [facility] Last Admin: 08/21/18 13:47 Dose: 100 mg Enalapril Maleate (Vasotec) 30 mg PO DAILY [facility] Last Admin: 08/21/18 10:05 Dose: 30 mg Famotidine (Pepcid) 20 mg PO DAILY [facility] Last Admin: 08/21/18 10:05 Dose: 20 mg Ferrous Sulfate (Feosol) 325 mg PO TID [facility] Last Admin: 08/21/18 13:47 Dose: 325 mg Finasteride (Proscar) 5 mg PO DAILY [facility] Last Admin: 08/21/18 10:05 Dose: 5 mg Fluconazole (Diflucan) 100 mg PO DAILY [facility]; Protocol Stop: 08/23/18 13:01 Last Admin: 08/21/18 10:07 Dose: 100 mg Gabapentin (Neurontin) 100 mg PO TID [facility] Last Admin: 08/21/18 13:47 Dose: 100 mg Heparin Sodium (Porcine) (Heparin) 5,000 units SC BID [facility] Last Admin: 08/21/18 10:06 Dose: 5,000 units Cefazolin Sodium 2,000 mg/ (Sodium Chloride) 50 mls @ 100 mls/hr IVPB Q8H [facility]; Protocol Last Admin: 08/21/18 10:20 Dose: 100 mls/hr Insulin Glargine (Lantus) 30 unit SC DAILY [facility] Last Admin: 08/21/18 10:06 Dose: 30 units Insulin Human Regular (Novolin R) 0 unit SC ACHS [facility]; Protocol Last Admin: 08/21/18 12:01 Dose: 3 units Lactobacillus Acidophilus (Bacid Acidophilus) 1 cap PO BID [facility] Last Admin: 08/21/18 10:06 Dose: 1 cap Lidocaine (Lidoderm) 1 ea TD DAILY [facility] Last Admin: 08/21/18 10:07 Dose: 1 ea Metoprolol Succinate (Toprol Xl) 50 mg PO DAILY [facility] Last Admin: 08/21/18 10:06 Dose: 50 mg Mupirocin (Bactroban Ointment) 0 gm TOP BID [facility] Last Admin: 08/21/18 10:14 Dose: 1 applic Naproxen (Anaprox) 275 mg PO BID PRN PRN Reason: Pain, moderate (4-7) Last Admin: 08/21/18 10:07 Dose: 275 mg Phenazopyridine HCl (Pyridium) 100 mg PO TIDPC [facility] Stop: 08/23/18 15:00 Last Admin: 08/21/18 13:47 Dose: 100 mg Polyethylene Glycol (Miralax) 17 gm PO HS PRN PRN Reason: Constipation Polyethylene Glycol (Miralax) 17 gm PO MWF [facility] Last Admin: 08/21/18 10:00 Dose: 17 gm Tamsulosin HCl (Flomax) 0.4 mg PO BID [facility] Last Admin: 08/21/18 10:06 Dose: 0.4 mg - Labs Labs: 08/20/18 07:14 08/20/18 07:14 PT 15.6 SECONDS (9.7-12.2) H 07/21/18 20:28 INR 1.4 07/21/18 20:28 APTT 34 SECONDS (21-34) 07/21/18 20:28 Attending/Attestation - Attestation I have personally seen and examined this patient.: Yes I have fully participated in the care of the patient.: Yes I have reviewed all pertinent clinical information, including history, physical exam and plan: Yes Notes (Text): Medical attending: Patient was seen and examined by me as well, reviewed the above note by the resident and agree with the above. Today we added Pyriduium to medications to see if this gives patient any relief for the burning urination - also per bobbin stripper he reports having difficulty starting a urinary stream and we will change the flomax to be BID. In the mean time he remains on the IV abx. Galen Alston
[2018-08-21] MEDS: (Novolin R) Insulin Human Regular 100 units/ml vial SC SCH ×4 (07:54→21:06)
[2018-08-21] MEDS: POLYETHYLENE GLYCOL 3350 17 GM/Dose PACKET PO SCH (10:00)
[2018-08-21] MEDS: (Lantus) Insulin Glargine, Recombinant SC SCH (10:06)
[2018-08-21] MEDS: Metoprolol Succinate 50 mg XL Tab PO SCH (10:06)
[2018-08-21] MEDS: Lactobacillus Acidophilus 500 MU Cap PO SCH ×2 (10:06→17:59)
[2018-08-21] MEDS: Lidocaine 5% Patch TD SCH (10:07)
[2018-08-21] MEDS: Naproxen 275 mg Tab PO PRN (10:07)
[2018-08-22 07:14] LABS: BASO % 0.7 % (0.0-2.0); EOS # 0.3 K/uL (0.0-0.7); LYMPH # 1.8 K/uL (1.0-4.3); LYMPH % 25.9 % (20.0-40.0); MEAN CELL VOLUME 86.5 fL (80.0-94.0); MEAN CORPUSCULAR HEMOGLOBIN 29.4 pg (27.0-31.0); MEAN PLATELET VOLUME 9.2 fL (7.2-11.7); MONO # 0.6 K/uL (0.0-0.8); MONO % 8.1 % (0.0-10.0); NEUT # 4.2 K/uL (1.8-7.0); NEUT % 60.3 % (50.0-75.0); RBC 2.72 Mil/uL (4.40-5.90); RED CELL DISTRIBUTION WIDTH 14.2 % (11.5-14.5); WHITE BLOOD COUNT 6.9 K/uL (4.8-10.8)
[2018-08-22 07:52] LABS: ALB/GLOB RATIO 0.8 (1.0-2.1); ALBUMIN 3.1 g/dL (3.5-5.0); ALT/SGPT 11 U/L (21-72); AST/SGOT 28 U/L (17-59); BLOOD UREA NITROGEN 21 mg/dL (9-20); CALCIUM 8.6 mg/dl (8.6-10.4); GFR NON-AFRICAN AMERICAN > 60
[2018-08-22] MEDS: (Novolin R) Insulin Human Regular 100 units/ml vial SC SCH ×3 (08:22→17:29)
[2018-08-22] MEDS: Metoprolol Succinate 50 mg XL Tab PO SCH (10:42)
[2018-08-22] MEDS: Lactobacillus Acidophilus 500 MU Cap PO SCH ×2 (10:43→17:28)
[2018-08-22] MEDS: (Lantus) Insulin Glargine, Recombinant SC SCH (10:44)
[2018-08-22] MEDS: Naproxen 275 mg Tab PO PRN (10:44)
[2018-08-22] MEDS: Lidocaine 5% Patch TD SCH (10:44)
--- NOTE | 2018-08-22 15:09 | CP.PCM.PN ---
<Brandon Shaw - Last Filed: 08/22/18 15:05> Subjective - Date & Time of Evaluation Date of Evaluation: 08/22/18 Time of Evaluation: 11:30 - Subjective Subjective: PGY-1 Medicine Progress Note for Dr. Alston's service Patient seen and examined at bedside. Patient complained about lower back pain, pain with urination, and leg pain. Patient denies fevers, chills, chest pain, sob, n/v, constipation or diarrhea. Objective - Vital Signs/Intake and Output Vital Signs (last 24 hours): Temp Pulse Resp BP Pulse Ox 98.1 F 84 20 147/76 96 08/22/18 09:00 08/22/18 09:00 08/22/18 09:00 08/22/18 10:43 08/22/18 09:00 Intake and Output: 08/22/18 08/22/18 06:59 18:59 Intake Total 3502 Output Total 1300 Balance 2202 - Medications Medications: Current Medications Acetaminophen (Tylenol 325mg Tab) 650 mg PO Q6 PRN PRN Reason: Fever >100.4 or Pain Last Admin: 08/21/18 13:47 Dose: 650 mg Amlodipine Besylate (Norvasc) 10 mg PO DAILY [facility] Last Admin: 08/22/18 10:41 Dose: 10 mg Aspirin (Ecotrin) 81 mg PO DAILY [facility] Last Admin: 08/22/18 10:42 Dose: 81 mg Docusate Sodium (Colace) 100 mg PO TID [facility] Last Admin: 08/22/18 14:06 Dose: 100 mg Enalapril Maleate (Vasotec) 30 mg PO DAILY [facility] Last Admin: 08/22/18 10:43 Dose: 30 mg Famotidine (Pepcid) 20 mg PO DAILY [facility] Last Admin: 08/22/18 10:42 Dose: 20 mg Ferrous Sulfate (Feosol) 325 mg PO TID [facility] Last Admin: 08/22/18 14:06 Dose: 325 mg Finasteride (Proscar) 5 mg PO DAILY [facility] Last Admin: 08/22/18 10:42 Dose: 5 mg Fluconazole (Diflucan) 100 mg PO DAILY [facility]; Protocol Stop: 08/23/18 13:01 Last Admin: 08/22/18 10:42 Dose: 100 mg Gabapentin (Neurontin) 200 mg PO TID [facility] Last Admin: 08/22/18 14:05 Dose: 200 mg Heparin Sodium (Porcine) (Heparin) 5,000 units SC BID [facility] Last Admin: 08/22/18 10:43 Dose: 5,000 units Cefazolin Sodium 2,000 mg/ (Sodium Chloride) 50 mls @ 100 mls/hr IVPB Q8H [facility]; Protocol Last Admin: 08/22/18 11:13 Dose: 100 mls/hr Insulin Glargine (Lantus) 30 unit SC DAILY [facility] Last Admin: 08/22/18 10:44 Dose: 30 units Insulin Human Regular (Novolin R) 0 unit SC ACHS [facility]; Protocol Last Admin: 08/22/18 12:25 Dose: 2 units Lactobacillus Acidophilus (Bacid Acidophilus) 1 cap PO BID [facility] Last Admin: 08/22/18 10:43 Dose: 1 cap Lidocaine (Lidoderm) 1 ea TD DAILY [facility] Last Admin: 08/22/18 10:44 Dose: 1 ea Metoprolol Succinate (Toprol Xl) 50 mg PO DAILY [facility] Last Admin: 08/22/18 10:42 Dose: 50 mg Mupirocin (Bactroban Ointment) 0 gm TOP BID [facility] Last Admin: 08/22/18 10:41 Dose: 1 applic Naproxen (Anaprox) 275 mg PO BID PRN PRN Reason: Pain, moderate (4-7) Last Admin: 08/22/18 10:44 Dose: 275 mg Phenazopyridine HCl (Pyridium) 100 mg PO TIDPC [facility] Stop: 08/23/18 15:00 Last Admin: 08/22/18 14:05 Dose: 100 mg Polyethylene Glycol (Miralax) 17 gm PO HS PRN PRN Reason: Constipation Polyethylene Glycol (Miralax) 17 gm PO MWF [facility] Last Admin: 08/21/18 10:00 Dose: 17 gm Tamsulosin HCl (Flomax) 0.4 mg PO BID [facility] Last Admin: 08/22/18 10:41 Dose: 0.4 mg - Labs Labs: 08/22/18 07:08 08/22/18 07:08 PT 15.6 SECONDS (9.7-12.2) H 07/21/18 20:28 INR 1.4 07/21/18 20:28 APTT 34 SECONDS (21-34) 07/21/18 20:28 - Additional Findings Additional findings: - Constitutional Appears: Non-toxic, No Acute Distress - Head Exam Head Exam: NORMAL INSPECTION Additional comments: ulcerative lesion on the L nare and L malar region, erythema with slight granulation tissue. no drainage noted. cartilage visible. Dressing in place - Eye Exam Eye Exam: Normal appearance - ENT Exam ENT Exam: Mucous Membranes Moist - Respiratory Exam Respiratory Exam: Clear to Ausculation Bilateral, NORMAL BREATHING PATTERN. absent: Rales, Rhonchi, Wheezes - Cardiovascular Exam Cardiovascular Exam: +S1, +S2 - GI/Abdominal Exam GI & Abdominal Exam: Soft, Normal Bowel Sounds. absent: Guarding, Rigid, Tenderness - Extremities Exam Extremities Exam: Full ROM Additional comments: bilateral BKA radial pulse palpable - Back Exam Back Exam: absent: CVA tenderness (L), CVA tenderness (R) Additional comments: no sacral ulcers - Neurological Exam Neurological Exam: Alert, Awake, Oriented x3 - Psychiatric Exam Psychiatric exam: Normal Affect, Normal Mood - Skin Skin Exam: Dry, Intact, Normal Color, Warm Assessment and Plan - Assessment and Plan (Free Text) Assessment: 53 yo male with a history of uncontrolled T2DM (s/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 Patient's blood cultures are positive for Staph aureus, currently being treated for bacteremia & discitis & spinal abscess. Plan: Epidural Abscess MRI L-spine: suspicious for discitis osteomyelitis involving L4-5 intervetebral disc w/ anterior epidural abscess, R iliopsoas fluid collection 1.5x1.9cm Pt reports 3 month history, with radiation and urinary retention Back pain likely due to this, will hold oxycodone as patient was sleeping peacefully at this time Naproxen 550mg PO q12h PRN Ancef 2000mg IV q8h (07/25) IR, Dr. Fragoso recs: psoas collection and spinal abscess too small to drain NeuroSx, Dr. Olivia recs: no intervention at this time ID, Dr. Garcia recs: 6-8 weeks of abx of ancef 2000mg Q8H; started 07/25/18 - will need through 09/04/18 Dysuria burning on urination since last night UA - leuko esterase 2+, WBC 50, squamous 1+ UC - yeast species > [id number] cfu/ml fluconazole 100 mg PO daily X 3 days bladder scan revealed < 200 ml urine 08/20 Added pyridium 100 mg TIDPC for 2 days for symptom relief Anemia likely of chronic disease Hgb duration in 8s 08/19/18 -> 8.0, patient remains asymptomatic will continue to monitor L Maxillofacial Ulcer CT 07/25: soft tissue swelling, no osteomyelitis or drainable fluid Covered w/ ancef 2000mg IV q8h (07/25) for epidural abscess Will be on 6-8 week course antibiotic treatment, as per ID for epidural abscess Mupirocin 2g top BID wound care consulted Pt following up with plastic surgeon at [facility] sep 04 DM type 2 A1c 8.9 Medium dose Novolin R ISS Lantus 30u SC daily (increased from 25 to 30 on 08/13) Gabapentin 200mg po tid Hypoglycemia protocol Accuchecks ACHS despite persistent education of no sweet/sugar filled drinks, patient continues to have juices at bedside HTN Patient initially HTN in 160s to 170s, no 130s to 150s ASA 81 mg PO daily Enalapril 30 mg PO daily Metoprolol succinate 50 mg PO daily Norvasc 10mg PO daily Ppx: DVT: Heparin 5000 units Q12H GI: Protonix 40 mg PO daily Labs: CBC/ CMP Q2D Mag/Phs Q4D PT/OT: GARRETT Dispo: pt without insurance and undocumented citizen, pending medicaid a cceptance. Likely to stay for duration of antibiotic tx course. Brandon Shaw PGY-1 Medical Management discussed with Dr. Alston <Galen Alston - Last Filed: 08/22/18 15:55> Objective - Vital Signs/Intake and Output Vital Signs (last 24 hours): Temp Pulse Resp BP Pulse Ox 98.1 F 84 20 147/76 96 08/22/18 09:00 08/22/18 09:00 08/22/18 09:00 08/22/18 10:43 08/22/18 09:00 Intake and Output: 08/22/18 08/22/18 06:59 18:59 Intake Total 3502 530 Output Total 1300 750 Balance 2202 -220 - Medications Medications: Current Medications Acetaminophen (Tylenol 325mg Tab) 650 mg PO Q6 PRN PRN Reason: Fever >100.4 or Pain Last Admin: 08/21/18 13:47 Dose: 650 mg Amlodipine Besylate (Norvasc) 10 mg PO DAILY [facility] Last Admin: 08/22/18 10:41 Dose: 10 mg Aspirin (Ecotrin) 81 mg PO DAILY [facility] Last Admin: 08/22/18 10:42 Dose: 81 mg Docusate Sodium (Colace) 100 mg PO TID [facility] Last Admin: 08/22/18 14:06 Dose: 100 mg Enalapril Maleate (Vasotec) 30 mg PO DAILY [facility] Last Admin: 08/22/18 10:43 Dose: 30 mg Famotidine (Pepcid) 20 mg PO DAILY [facility] Last Admin: 08/22/18 10:42 Dose: 20 mg Ferrous Sulfate (Feosol) 325 mg PO TID [facility] Last Admin: 08/22/18 14:06 Dose: 325 mg Finasteride (Proscar) 5 mg PO DAILY [facility] Last Admin: 08/22/18 10:42 Dose: 5 mg Fluconazole (Diflucan) 100 mg PO DAILY [facility]; Protocol Stop: 08/23/18 13:01 Last Admin: 08/22/18 10:42 Dose: 100 mg Gabapentin (Neurontin) 200 mg PO TID [facility] Last Admin: 08/22/18 14:05 Dose: 200 mg Heparin Sodium (Porcine) (Heparin) 5,000 units SC BID [facility] Last Admin: 08/22/18 10:43 Dose: 5,000 units Cefazolin Sodium 2,000 mg/ (Sodium Chloride) 50 mls @ 100 mls/hr IVPB Q8H [facility]; Protocol Last Admin: 08/22/18 11:13 Dose: 100 mls/hr Insulin Glargine (Lantus) 30 unit SC DAILY [facility] Last Admin: 08/22/18 10:44 Dose: 30 units Insulin Human Regular (Novolin R) 0 unit SC ACHS [facility]; Protocol Last Admin: 08/22/18 12:25 Dose: 2 units Lactobacillus Acidophilus (Bacid Acidophilus) 1 cap PO BID [facility] Last Admin: 08/22/18 10:43 Dose: 1 cap Lidocaine (Lidoderm) 1 ea TD DAILY [facility] Last Admin: 08/22/18 10:44 Dose: 1 ea Metoprolol Succinate (Toprol Xl) 50 mg PO DAILY [facility] Last Admin: 08/22/18 10:42 Dose: 50 mg Mupirocin (Bactroban Ointment) 0 gm TOP BID [facility] Last Admin: 08/22/18 10:41 Dose: 1 applic Naproxen (Anaprox) 275 mg PO BID PRN PRN Reason: Pain, moderate (4-7) Last Admin: 08/22/18 10:44 Dose: 275 mg Phenazopyridine HCl (Pyridium) 100 mg PO TIDPC [facility] Stop: 08/23/18 15:00 Last Admin: 08/22/18 14:05 Dose: 100 mg Polyethylene Glycol (Miralax) 17 gm PO HS PRN PRN Reason: Constipation Polyethylene Glycol (Miralax) 17 gm PO MWF [facility] Last Admin: 08/21/18 10:00 Dose: 17 gm Tamsulosin HCl (Flomax) 0.4 mg PO BID [facility] Last Admin: 08/22/18 10:41 Dose: 0.4 mg - Labs Labs: 08/22/18 07:08 08/22/18 07:08 PT 15.6 SECONDS (9.7-12.2) H 07/21/18 20:28 INR 1.4 07/21/18 20:28 APTT 34 SECONDS (21-34) 07/21/18 20:28 Attending/Attestation - Attestation I have personally seen and examined this patient.: Yes I have fully participated in the care of the patient.: Yes I have reviewed all pertinent clinical information, including history, physical exam and plan: Yes Notes (Text): 08/22/18 15:49 Medical attending: Patient was seen and examined by me. With the help of estimator and drafter he again said that he has urinary dribbling. He is already on flomax BID Will check a bladder U/S as well and if there is a lot of retention may need a sagastume cathter. Galen Alston
--- NOTE | 2018-08-23 07:02 | CP.PCM.PN ---
Subjective - Date & Time of Evaluation Date of Evaluation: 08/23/18 Time of Evaluation: 07:40 - Subjective Subjective: PGY1 Medicine Progress note for Dr. Alston Patient seen and examined at bedside. No overnight events reported. Patient sitting in bed comfortably. Patient states he feels much better from yesterday. His states his pain in his back is minimal, and is worsened with motion. Patient still has burning on urination; however, it is improving. Additionally patient states he is producing good urine. Patient denies chest pain, SOB, abdominal pain, nausea, vomiting. Patient again was making an attempt to drink juice. Encourage patient for less sugary alternatives in light of his diabetes. Objective - Vital Signs/Intake and Output Vital Signs (last 24 hours): Temp Pulse Resp BP Pulse Ox 98.1 F 80 20 147/74 97 08/22/18 23:20 08/22/18 23:20 08/22/18 23:20 08/22/18 23:20 08/22/18 23:20 Intake and Output: 08/23/18 08/23/18 06:59 18:59 Intake Total 400 Output Total 800 Balance -400 - Medications Medications: Current Medications Acetaminophen (Tylenol 325mg Tab) 650 mg PO Q6 PRN PRN Reason: Fever >100.4 or Pain Last Admin: 08/21/18 13:47 Dose: 650 mg Amlodipine Besylate (Norvasc) 10 mg PO DAILY [facility] Last Admin: 08/22/18 10:41 Dose: 10 mg Aspirin (Ecotrin) 81 mg PO DAILY [facility] Last Admin: 08/22/18 10:42 Dose: 81 mg Docusate Sodium (Colace) 100 mg PO TID [facility] Last Admin: 08/22/18 17:28 Dose: 100 mg Enalapril Maleate (Vasotec) 30 mg PO DAILY [facility] Last Admin: 08/22/18 10:43 Dose: 30 mg Famotidine (Pepcid) 20 mg PO DAILY [facility] Last Admin: 08/22/18 10:42 Dose: 20 mg Ferrous Sulfate (Feosol) 325 mg PO TID [facility] Last Admin: 08/22/18 17:28 Dose: 325 mg Finasteride (Proscar) 5 mg PO DAILY [facility] Last Admin: 08/22/18 10:42 Dose: 5 mg Fluconazole (Diflucan) 100 mg PO DAILY [facility]; Protocol Stop: 08/23/18 13:01 Last Admin: 08/22/18 10:42 Dose: 100 mg Gabapentin (Neurontin) 200 mg PO TID [facility] Last Admin: 08/22/18 17:34 Dose: 200 mg Heparin Sodium (Porcine) (Heparin) 5,000 units SC BID [facility] Last Admin: 08/22/18 17:34 Dose: 5,000 units Cefazolin Sodium 2,000 mg/ (Sodium Chloride) 50 mls @ 100 mls/hr IVPB Q8H [facility]; Protocol Last Admin: 08/23/18 03:00 Dose: 100 mls/hr Insulin Glargine (Lantus) 30 unit SC DAILY [facility] Last Admin: 08/22/18 10:44 Dose: 30 units Insulin Human Regular (Novolin R) 0 unit SC ACHS [facility]; Protocol Last Admin: 08/22/18 17:29 Dose: 3 units Lactobacillus Acidophilus (Bacid Acidophilus) 1 cap PO BID [facility] Last Admin: 08/22/18 17:28 Dose: 1 cap Lidocaine (Lidoderm) 1 ea TD DAILY [facility] Last Admin: 08/22/18 10:44 Dose: 1 ea Metoprolol Succinate (Toprol Xl) 50 mg PO DAILY [facility] Last Admin: 08/22/18 10:42 Dose: 50 mg Mupirocin (Bactroban Ointment) 0 gm TOP BID [facility] Last Admin: 08/22/18 17:36 Dose: 1 applic Naproxen (Anaprox) 275 mg PO BID PRN PRN Reason: Pain, moderate (4-7) Last Admin: 08/22/18 10:44 Dose: 275 mg Phenazopyridine HCl (Pyridium) 100 mg PO TIDPC [facility] Stop: 08/23/18 15:00 Last Admin: 08/22/18 17:30 Dose: 100 mg Polyethylene Glycol (Miralax) 17 gm PO HS PRN PRN Reason: Constipation Polyethylene Glycol (Miralax) 17 gm PO MWF [facility] Last Admin: 08/21/18 10:00 Dose: 17 gm Tamsulosin HCl (Flomax) 0.4 mg PO BID [facility] Last Admin: 08/22/18 17:28 Dose: 0.4 mg - Labs Labs: 08/22/18 07:08 08/22/18 07:08 PT 15.6 SECONDS (9.7-12.2) H 07/21/18 20:28 INR 1.4 07/21/18 20:28 APTT 34 SECONDS (21-34) 07/21/18 20:28 - Constitutional Appears: Non-toxic, No Acute Distress - Head Exam Additional comments: ulcerative lesion on the L nare and L malar region, erythema with slight granulation tissue. no drainage noted. cartilage visible. - Eye Exam Eye Exam: Normal appearance Pupil Exam: NORMAL ACCOMODATION - ENT Exam ENT Exam: Mucous Membranes Moist - Respiratory Exam Respiratory Exam: Clear to Ausculation Bilateral, NORMAL BREATHING PATTERN. absent: Rales, Rhonchi, Wheezes, Respiratory Distress - Cardiovascular Exam Cardiovascular Exam: +S1, +S2. absent: Murmur - GI/Abdominal Exam GI & Abdominal Exam: Soft, Normal Bowel Sounds. absent: Guarding, Rigid - Extremities Exam Additional comments: bilateral BKA radial pulse palpable - Back Exam Back Exam: absent: CVA tenderness (L), CVA tenderness (R) Additional comments: no sacral ulcers - Neurological Exam Neurological Exam: Alert, Awake, Oriented x3 - Psychiatric Exam Psychiatric exam: Normal Affect, Normal Mood - Skin Skin Exam: Dry, Intact, Normal Color, Warm Assessment and Plan - Assessment and Plan (Free Text) Assessment: 53 yo male with a history of uncontrolled T2DM (s/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 Patient's blood cultures are positive for Staph aureus, currently being treated for bacteremia & discitis & spinal abscess. Plan: Epidural Abscess - MRI L-spine: suspicious for discitis osteomyelitis involving L4-5 intervetebral disc w/ anterior epidural abscess, R iliopsoas fluid collection 1.5x1.9cm - pt reports 3 month history, with radiation and urinary retention - Back pain likely due to this, will hold oxycodone as patient was sleeping peacefully at this time - naproxen 550mg PO q12h PRN - ancef 2000mg IV q8h (07/25) - F/u IR, Dr. Fragoso recs: - psoas collection and spinal abscess too small to drain - F/u NeuroSx, Dr. Olivia recs: - no intervention at this time - F/u ID, Dr. Garcia recs: - 6-8 weeks of abx of ancef 2000mg Q8H; started 07/25/18 - will need through 09/04/18 Dysuria - burning on urination since last night - UA - leuko esterase 2+, WBC 50, squamous 1+ - UC - yeast species > 163212 cfu/ml - fluconazole 100 mg PO daily - continue for 4 more days as patients symptoms are improving - bladder scan revealed < 200 ml urine 08/20 - Added pyridium 100 mg TIDPC for 2 days for symptom relief Anemia - likely of chronic disease - Hgb duration in 8s - 08/22/18 -> 8.0, patient remains asymptomatic - will continue to monitor L Maxillofacial Ulcer - CT 07/25: soft tissue swelling, no osteomyelitis or drainable fluid - Covered w/ ancef 2000mg IV q8h (07/25) for epidural abscess - Will be on 6-8 week course antibiotic treatment, as per ID for epidural abscess - mupirocin 2g top BID - wound care consulted - Pt following up with plastic surgeon at [facility] sep 04 DM type 2 - A1c 8.9 - medium dose Novolin R ISS - blood sugars in 180s - lantus 30u SC daily (increased from 25 to 30 on 08/13) - Hypoglycemia protocol - Accuchecks ACHS - despite persistent education of no sweet/sugar filled drinks, patient continues to have juices at bedside HTN - patient initially HTN in 160s to 170s, no 130s to 150s - ASA 81 mg PO daily - Enalapril 30 mg PO daily - Metoprolol succinate 50 mg PO daily - Norvasc 10mg PO daily Urinary Retention Resolved - CT A/P: bladder wall thickening (cystitis), b/l renal parenchymal high density may be underlying metabolic disorder - I/Os - sagastume catheter (07/27) - flomax 0.4mg PO BID - finasteride 5mg PO daily - Urology consulted: Titi Kam - maintain sagastume until outpatient follow - Sagastume D/C'ed @ 10 AM on 08/13, patient has been urinating freely CAP Resolved - CXR 08/06: no active disease - CT A/P: LLL consolidation vs atelectasis - ancef 2000mg IV q8h (07/25) Staph Aureus Bacteremia: Resolved - Initially: Blood Cx positive for Staph aureus (07/21); F/u Blood Cx negative 07/28 X 5 days - Urine Cx: no growth - Procal 14.74, Tmax 100.8 (08/01) - Tylenol 650 mg PO Q6H PRN - Echo: LV normal size and EF. LA mildly dilated. Mild TR - F/u cardio, Dr. Ge recs: - consider KASH if BCx+ in future, signed off - F/u ID, Dr. Garcia recs: - 6-8 week course antibiotic treatment, as per ID - ancef 2000mg IV q8h (07/25), as per ID - likely source: spinal abscess Unresponsiveness Resolved AAOx3 Previously - Code stroke - EEG: nonspecific abnormalities, no seizures noted - CT head: no acute findings - CTA head and neck: no significant stenoses or abnormalities - PRL wnl (12.9) - Gabapentin 100 mg PO TID - Neurology consulted: Manda - no need for anticonvulsant at this time Ppx: DVT: Heparin 5000 units Q12H GI: Protonix 40 mg PO daily Labs: CBC/ CMP Q2D Mag/Phs Q4D Diabetic Diet PT/OT: GARRETT Dispo: pt without insurance and undocumented citizen, pending medicaid acceptance. Likely to stay for duration of antibiotic tx course.
[2018-08-23] MEDS: (Novolin R) Insulin Human Regular 100 units/ml vial SC SCH ×4 (08:00→22:42)
[2018-08-23] MEDS: POLYETHYLENE GLYCOL 3350 17 GM/Dose PACKET PO SCH (09:05)
[2018-08-23] MEDS: (Lantus) Insulin Glargine, Recombinant SC SCH (10:10)
[2018-08-23] MEDS: Metoprolol Succinate 50 mg XL Tab PO SCH (10:10)
[2018-08-23] MEDS: Lactobacillus Acidophilus 500 MU Cap PO SCH ×2 (10:13→18:06)
[2018-08-23] MEDS: Lidocaine 5% Patch TD SCH (10:16)
--- NOTE | 2018-08-24 00:14 | CP.PCM.PN ---
<Molina Rodriguez - Last Filed: 08/24/18 00:13> Subjective - Date & Time of Evaluation Date of Evaluation: 08/24/18 Time of Evaluation: 00:13 - Subjective Subjective: Hospitalist Service Pt seen and examined at bedside, no acute complaints overnight, denies cp sob fc nv Objective - Vital Signs/Intake and Output Vital Signs (last 24 hours): Temp Pulse Resp BP Pulse Ox 97.4 F L 82 20 162/79 H 97 08/23/18 16:09 08/23/18 16:09 08/23/18 16:09 08/23/18 16:09 08/23/18 16:09 Intake and Output: 08/23/18 08/24/18 18:59 06:59 Intake Total 350 Output Total 800 Balance -450 - Medications Medications: Current Medications Acetaminophen (Tylenol 325mg Tab) 650 mg PO Q6 PRN PRN Reason: Fever >100.4 or Pain Last Admin: 08/21/18 13:47 Dose: 650 mg Amlodipine Besylate (Norvasc) 10 mg PO DAILY [facility] Last Admin: 08/23/18 10:10 Dose: 10 mg Aspirin (Ecotrin) 81 mg PO DAILY [facility] Last Admin: 08/23/18 10:10 Dose: 81 mg Docusate Sodium (Colace) 100 mg PO TID [facility] Last Admin: 08/23/18 17:31 Dose: 100 mg Enalapril Maleate (Vasotec) 30 mg PO DAILY [facility] Last Admin: 08/23/18 10:09 Dose: 30 mg Famotidine (Pepcid) 20 mg PO DAILY [facility] Last Admin: 08/23/18 10:10 Dose: 20 mg Ferrous Sulfate (Feosol) 325 mg PO TID [facility] Last Admin: 08/23/18 17:30 Dose: 325 mg Finasteride (Proscar) 5 mg PO DAILY [facility] Last Admin: 08/23/18 10:09 Dose: 5 mg Fluconazole (Diflucan) 100 mg PO DAILY [facility]; Protocol Stop: 08/28/18 10:01 Gabapentin (Neurontin) 200 mg PO TID [facility] Last Admin: 08/23/18 17:30 Dose: 200 mg Heparin Sodium (Porcine) (Heparin) 5,000 units SC BID [facility] Last Admin: 08/23/18 17:31 Dose: 5,000 units Cefazolin Sodium 2,000 mg/ (Sodium Chloride) 50 mls @ 100 mls/hr IVPB Q8H [facility]; Protocol Last Admin: 08/23/18 18:05 Dose: 100 mls/hr Insulin Glargine (Lantus) 30 unit SC DAILY [facility] Last Admin: 08/23/18 10:10 Dose: 30 units Insulin Human Regular (Novolin R) 0 unit SC ACHS [facility]; Protocol Last Admin: 08/23/18 22:42 Dose: Not Given Lactobacillus Acidophilus (Bacid Acidophilus) 1 cap PO BID [facility] Last Admin: 08/23/18 18:06 Dose: 1 cap Lidocaine (Lidoderm) 1 ea TD DAILY [facility] Last Admin: 08/23/18 10:16 Dose: 1 ea Metoprolol Succinate (Toprol Xl) 50 mg PO DAILY [facility] Last Admin: 08/23/18 10:10 Dose: 50 mg Mupirocin (Bactroban Ointment) 0 gm TOP BID [facility] Last Admin: 08/23/18 20:00 Dose: 1 applic Naproxen (Anaprox) 275 mg PO BID PRN PRN Reason: Pain, moderate (4-7) Last Admin: 08/22/18 10:44 Dose: 275 mg Polyethylene Glycol (Miralax) 17 gm PO HS PRN PRN Reason: Constipation Polyethylene Glycol (Miralax) 17 gm PO MWF [facility] Last Admin: 08/23/18 09:05 Dose: 17 gm Tamsulosin HCl (Flomax) 0.4 mg PO BID [facility] Last Admin: 08/23/18 17:31 Dose: 0.4 mg - Labs Labs: 08/22/18 07:08 08/22/18 07:08 PT 15.6 SECONDS (9.7-12.2) H 07/21/18 20:28 INR 1.4 07/21/18 20:28 APTT 34 SECONDS (21-34) 07/21/18 20:28 - Additional Findings Additional findings: - Constitutional Appears: Non-toxic, No Acute Distress - Head Exam Additional comments: ulcerative lesion on the L nare and L malar region, erythema with slight granulation tissue. no drainage noted. cartilage visible. - Eye Exam Eye Exam: Normal appearance Pupil Exam: NORMAL ACCOMODATION - ENT Exam ENT Exam: Mucous Membranes Moist - Respiratory Exam Respiratory Exam: Clear to Ausculation Bilateral, NORMAL BREATHING PATTERN. absent: Rales, Rhonchi, Wheezes, Respiratory Distress - Cardiovascular Exam Cardiovascular Exam: +S1, +S2. absent: Murmur - GI/Abdominal Exam GI & Abdominal Exam: Soft, Normal Bowel Sounds. absent: Guarding, Rigid - Extremities Exam Additional comments: bilateral BKA radial pulse palpable - Back Exam Back Exam: absent: CVA tenderness (L), CVA tenderness (R) Additional comments: no sacral ulcers - Neurological Exam Neurological Exam: Alert, Awake, Oriented x3 - Psychiatric Exam Psychiatric exam: Normal Affect, Normal Mood - Skin Skin Exam: Dry, Intact, Normal Color, Warm Assessment and Plan - Assessment and Plan (Free Text) Assessment: 53 yo male with a history of uncontrolled T2DM (s/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 Patient's blood cultures are positive for Staph aureus, currently being treated for bacteremia & discitis & spinal abscess. Plan: Epidural Abscess - MRI L-spine: suspicious for discitis osteomyelitis involving L4-5 intervetebral disc w/ anterior epidural abscess, R iliopsoas fluid collection 1.5x1.9cm - pt reports 3 month history, with radiation and urinary retention - Back pain likely due to this, will hold oxycodone as patient was sleeping peacefully at this time - naproxen 550mg PO q12h PRN - ancef 2000mg IV q8h (07/25) - F/u IR, Dr. Fragoso recs: - psoas collection and spinal abscess too small to drain - F/u NeuroSx, Dr. Olivia recs: - no intervention at this time - F/u ID, Dr. Garcia recs: - 6-8 weeks of abx of ancef 2000mg Q8H; started 07/25/18 - will need through 09/04/18 Dysuria - burning on urination since last night - UA - leuko esterase 2+, WBC 50, squamous 1+ - UC - yeast species > 980618 cfu/ml - fluconazole 100 mg PO daily - continue for 4 more days as patients symptoms are improving - bladder scan revealed < 200 ml urine 08/20 - Added pyridium 100 mg TIDPC for 2 days for symptom relief Anemia - likely of chronic disease - Hgb duration in 8s - 08/22/18 -> 8.0, patient remains asymptomatic - will continue to monitor L Maxillofacial Ulcer - CT 07/25: soft tissue swelling, no osteomyelitis or drainable fluid - Covered w/ ancef 2000mg IV q8h (07/25) for epidural abscess - Will be on 6-8 week course antibiotic treatment, as per ID for epidural abscess - mupirocin 2g top BID - wound care consulted - Pt following up with plastic surgeon at [facility] sep 04 DM type 2 - A1c 8.9 - medium dose Novolin R ISS - blood sugars in 180s - lantus 30u SC daily (increased from 25 to 30 on 08/13) - Hypoglycemia protocol - Accuchecks ACHS - despite persistent education of no sweet/sugar filled drinks, patient continues to have juices at bedside HTN - patient initially HTN in 160s to 170s, no 130s to 150s - ASA 81 mg PO daily - Enalapril 30 mg PO daily - Metoprolol succinate 50 mg PO daily - Norvasc 10mg PO daily Urinary Retention Resolved - CT A/P: bladder wall thickening (cystitis), b/l renal parenchymal high density may be underlying metabolic disorder - I/Os - sagastume catheter (07/27) - flomax 0.4mg PO BID - finasteride 5mg PO daily - Urology consulted: Titi Kam - maintain sagastume until outpatient follow - Sagastume D/C'ed @ 10 AM on 08/13, patient has been urinating freely CAP Resolved - CXR 08/06: no active disease - CT A/P: LLL consolidation vs atelectasis - ancef 2000mg IV q8h (07/25) Staph Aureus Bacteremia: Resolved - Initially: Blood Cx positive for Staph aureus (07/21); F/u Blood Cx negative 07/28 X 5 days - Urine Cx: no growth - Procal 14.74, Tmax 100.8 (08/01) - Tylenol 650 mg PO Q6H PRN - Echo: LV normal size and EF. LA mildly dilated. Mild TR - F/u cardio, Dr. Ge recs: - consider KASH if BCx+ in future, signed off - F/u ID, Dr. Garcia recs: - 6-8 week course antibiotic treatment, as per ID - ancef 2000mg IV q8h (07/25), as per ID - likely source: spinal abscess Unresponsiveness Resolved AAOx3 Previously - Code stroke - EEG: nonspecific abnormalities, no seizures noted - CT head: no acute findings - CTA head and neck: no significant stenoses or abnormalities - PRL wnl (12.9) - Gabapentin 100 mg PO TID - Neurology consulted: Manda - no need for anticonvulsant at this time Ppx: DVT: Heparin 5000 units Q12H GI: Protonix 40 mg PO daily Labs: CBC/ CMP Q2D Mag/Phs Q4D Diabetic Diet PT/OT: GARRETT Dispo: pt without insurance and undocumented citizen, pending medicaid acceptance. Likely to stay for duration of antibiotic tx course. <Galen Alston - Last Filed: 08/24/18 12:55> Objective - Vital Signs/Intake and Output Vital Signs (last 24 hours): Temp Pulse Resp BP Pulse Ox 98 F 81 20 143/76 96 08/24/18 00:00 08/24/18 00:00 08/24/18 00:00 08/24/18 10:41 08/24/18 00:00 Intake and Output: 08/24/18 08/24/18 06:59 18:59 Intake Total 450 Balance 450 - Medications Medications: Current Medications Acetaminophen (Tylenol 325mg Tab) 650 mg PO Q6 PRN PRN Reason: Fever >100.4 or Pain Last Admin: 08/21/18 13:47 Dose: 650 mg Amlodipine Besylate (Norvasc) 10 mg PO DAILY [facility] Last Admin: 08/24/18 10:39 Dose: 10 mg Aspirin (Ecotrin) 81 mg PO DAILY [facility] Last Admin: 08/24/18 10:39 Dose: 81 mg Docusate Sodium (Colace) 100 mg PO TID [facility] Last Admin: 08/24/18 10:39 Dose: 100 mg Enalapril Maleate (Vasotec) 30 mg PO DAILY [facility] Last Admin: 08/24/18 10:41 Dose: 30 mg Famotidine (Pepcid) 20 mg PO DAILY [facility] Last Admin: 08/24/18 10:39 Dose: 20 mg Ferrous Sulfate (Feosol) 325 mg PO TID [facility] Last Admin: 08/24/18 10:39 Dose: 325 mg Finasteride (Proscar) 5 mg PO DAILY [facility] Last Admin: 08/24/18 11:00 Dose: 5 mg Fluconazole (Diflucan) 100 mg PO DAILY [facility]; Protocol Stop: 08/28/18 10:01 Last Admin: 08/24/18 10:39 Dose: 100 mg Gabapentin (Neurontin) 200 mg PO TID [facility] Last Admin: 08/24/18 10:38 Dose: 200 mg Heparin Sodium (Porcine) (Heparin) 5,000 units SC BID [facility] Last Admin: 08/24/18 10:39 Dose: 5,000 units Cefazolin Sodium 2,000 mg/ (Sodium Chloride) 50 mls @ 100 mls/hr IVPB Q8H [facility]; Protocol Last Admin: 08/24/18 11:00 Dose: 100 mls/hr Insulin Glargine (Lantus) 30 unit SC DAILY [facility] Last Admin: 08/24/18 10:38 Dose: 30 units Insulin Human Regular (Novolin R) 0 unit SC ACHS [facility]; Protocol Last Admin: 08/24/18 12:30 Dose: 2 units Lactobacillus Acidophilus (Bacid Acidophilus) 1 cap PO BID [facility] Last Admin: 08/24/18 10:39 Dose: 1 cap Lidocaine (Lidoderm) 1 ea TD DAILY [facility] Last Admin: 08/24/18 10:40 Dose: 1 ea Metoprolol Succinate (Toprol Xl) 50 mg PO DAILY [facility] Last Admin: 08/24/18 10:39 Dose: 50 mg Mupirocin (Bactroban Ointment) 0 gm TOP BID [facility] Last Admin: 08/24/18 10:38 Dose: 1 applic Naproxen (Anaprox) 275 mg PO BID PRN PRN Reason: Pain, moderate (4-7) Last Admin: 08/24/18 10:40 Dose: 275 mg Polyethylene Glycol (Miralax) 17 gm PO HS PRN PRN Reason: Constipation Polyethylene Glycol (Miralax) 17 gm PO MWF [facility] Last Admin: 08/23/18 09:05 Dose: 17 gm Tamsulosin HCl (Flomax) 0.4 mg PO BID [facility] Last Admin: 08/24/18 10:38 Dose: 0.4 mg - Labs Labs: 08/24/18 06:30 08/24/18 06:30 PT 15.6 SECONDS (9.7-12.2) H 07/21/18 20:28 INR 1.4 07/21/18 20:28 APTT 34 SECONDS (21-34) 07/21/18 20:28 Attending/Attestation - Attestation I have personally seen and examined this patient.: Yes I have fully participated in the care of the patient.: Yes I have reviewed all pertinent clinical information, including history, physical exam and plan: Yes Notes (Text): 08/24/18 12:51 Medical attending: Patient was seen and examined by me as well. Agree with the above note by the resident The patient was not in any acute distress however it should be mentioned that today he was very upset with us. He had questions about how long he would have pain for and I answered him with a vp hr diversity that unfourtunately he would have chronic pain - and he then asked wouldn't the IV abx take care of this - and we explained to him it should help However because he cannot walk (he is AKA bilaterally) and almost completely bedbound that he will have pain from being bedbound. Our conversation with the patient today went nowhere. Galen Alston
[2018-08-24 06:39] LABS: BASO % 0.5 % (0.0-2.0); EOS # 0.3 K/uL (0.0-0.7); EOS % 4.7 % (0.0-4.0); HEMOGLOBIN 8.2 g/dL (12.0-18.0); LYMPH # 1.8 K/uL (1.0-4.3); LYMPH % 25.9 % (20.0-40.0); MEAN CELL VOLUME 86.3 fL (80.0-94.0); MEAN CORPUSCULAR HEMOGLOBIN 29.5 pg (27.0-31.0); MEAN CORPUSCULAR HGB CONC 34.2 g/dL (33.0-37.0); MEAN PLATELET VOLUME 8.6 fL (7.2-11.7); MONO # 0.6 K/uL (0.0-0.8); NEUT # 4.3 K/uL (1.8-7.0); NEUT % 60.9 % (50.0-75.0); RBC 2.77 Mil/uL (4.40-5.90); RED CELL DISTRIBUTION WIDTH 14.3 % (11.5-14.5); WHITE BLOOD COUNT 7.1 K/uL (4.8-10.8)
[2018-08-24 07:33] LABS: ALB/GLOB RATIO 0.7 (1.0-2.1); ALT/SGPT 9 U/L (21-72); AST/SGOT 19 U/L (17-59); BLOOD UREA NITROGEN 20 mg/dL (9-20); CALCIUM 8.8 mg/dl (8.6-10.4); GFR NON-AFRICAN AMERICAN > 60
[2018-08-24] MEDS: (Novolin R) Insulin Human Regular 100 units/ml vial SC SCH ×4 (08:31→21:23)
[2018-08-24] MEDS: (Lantus) Insulin Glargine, Recombinant SC SCH (10:38)
[2018-08-24] MEDS: Metoprolol Succinate 50 mg XL Tab PO SCH (10:39)
[2018-08-24] MEDS: Lactobacillus Acidophilus 500 MU Cap PO SCH ×2 (10:39→17:52)
[2018-08-24] MEDS: Naproxen 275 mg Tab PO PRN (10:40)
[2018-08-24] MEDS: Lidocaine 5% Patch TD SCH (10:40)
--- NOTE | 2018-08-25 00:33 | CP.PCM.PN ---
Subjective - Date & Time of Evaluation Date of Evaluation: 08/25/18 Time of Evaluation: 00:31 - Subjective Subjective: HOSPITALIST SERVICE Pt seen and examined at [facility], no acute events overnight as per nursing or pt, denies cp sob fc nv Objective - Vital Signs/Intake and Output Vital Signs (last 24 hours): Temp Pulse Resp BP Pulse Ox 97.9 F 80 20 150/71 96 08/24/18 15:50 08/24/18 15:50 08/24/18 15:50 08/24/18 15:50 08/24/18 15:50 Intake and Output: 08/24/18 08/25/18 18:59 06:59 Intake Total 530 400 Output Total 700 600 Balance -170 -200 - Medications Medications: Current Medications Acetaminophen (Tylenol 325mg Tab) 650 mg PO Q6 PRN PRN Reason: Fever >100.4 or Pain Last Admin: 08/21/18 13:47 Dose: 650 mg Amlodipine Besylate (Norvasc) 10 mg PO DAILY [facility] Last Admin: 08/24/18 10:39 Dose: 10 mg Aspirin (Ecotrin) 81 mg PO DAILY [facility] Last Admin: 08/24/18 10:39 Dose: 81 mg Docusate Sodium (Colace) 100 mg PO TID [facility] Last Admin: 08/24/18 17:49 Dose: 100 mg Enalapril Maleate (Vasotec) 30 mg PO DAILY [facility] Last Admin: 08/24/18 10:41 Dose: 30 mg Famotidine (Pepcid) 20 mg PO DAILY [facility] Last Admin: 08/24/18 10:39 Dose: 20 mg Ferrous Sulfate (Feosol) 325 mg PO TID [facility] Last Admin: 08/24/18 17:49 Dose: 325 mg Finasteride (Proscar) 5 mg PO DAILY [facility] Last Admin: 08/24/18 11:00 Dose: 5 mg Fluconazole (Diflucan) 100 mg PO DAILY [facility]; Protocol Stop: 08/28/18 10:01 Last Admin: 08/24/18 10:39 Dose: 100 mg Gabapentin (Neurontin) 200 mg PO TID [facility] Last Admin: 08/24/18 17:48 Dose: 200 mg Heparin Sodium (Porcine) (Heparin) 5,000 units SC BID [facility] Last Admin: 08/24/18 17:49 Dose: 5,000 units Cefazolin Sodium 2,000 mg/ (Sodium Chloride) 50 mls @ 100 mls/hr IVPB Q8H [facility]; Protocol Last Admin: 08/24/18 19:30 Dose: 100 mls/hr Insulin Glargine (Lantus) 30 unit SC DAILY [facility] Last Admin: 08/24/18 10:38 Dose: 30 units Insulin Human Regular (Novolin R) 0 unit SC ACHS [facility]; Protocol Last Admin: 08/24/18 21:23 Dose: Not Given Lactobacillus Acidophilus (Bacid Acidophilus) 1 cap PO BID [facility] Last Admin: 08/24/18 17:52 Dose: 1 cap Lidocaine (Lidoderm) 1 ea TD DAILY [facility] Last Admin: 08/24/18 10:40 Dose: 1 ea Metoprolol Succinate (Toprol Xl) 50 mg PO DAILY [facility] Last Admin: 08/24/18 10:39 Dose: 50 mg Mupirocin (Bactroban Ointment) 0 gm TOP BID [facility] Last Admin: 08/24/18 21:44 Dose: 1 applic Naproxen (Anaprox) 275 mg PO BID PRN PRN Reason: Pain, moderate (4-7) Last Admin: 08/24/18 10:40 Dose: 275 mg Polyethylene Glycol (Miralax) 17 gm PO HS PRN PRN Reason: Constipation Polyethylene Glycol (Miralax) 17 gm PO MWF [facility] Last Admin: 08/23/18 09:05 Dose: 17 gm Tamsulosin HCl (Flomax) 0.4 mg PO BID [facility] Last Admin: 08/24/18 17:49 Dose: 0.4 mg - Labs Labs: 08/24/18 06:30 08/24/18 06:30 PT 15.6 SECONDS (9.7-12.2) H 07/21/18 20:28 INR 1.4 07/21/18 20:28 APTT 34 SECONDS (21-34) 07/21/18 20:28 - Additional Findings Additional findings: - Constitutional Appears: Non-toxic, No Acute Distress - Head Exam Additional comments: ulcerative lesion on the L nare and L malar region, erythema with slight granulation tissue. no drainage noted. cartilage visible. - Eye Exam Eye Exam: Normal appearance Pupil Exam: NORMAL ACCOMODATION - ENT Exam ENT Exam: Mucous Membranes Moist - Respiratory Exam Respiratory Exam: Clear to Ausculation Bilateral, NORMAL BREATHING PATTERN. abs ent: Rales, Rhonchi, Wheezes, Respiratory Distress - Cardiovascular Exam Cardiovascular Exam: +S1, +S2. absent: Murmur - GI/Abdominal Exam GI & Abdominal Exam: Soft, Normal Bowel Sounds. absent: Guarding, Rigid - Extremities Exam Additional comments: bilateral BKA radial pulse palpable - Back Exam Back Exam: absent: CVA tenderness (L), CVA tenderness (R) Additional comments: no sacral ulcers - Neurological Exam Neurological Exam: Alert, Awake, Oriented x3 - Psychiatric Exam Psychiatric exam: Normal Affect, Normal Mood - Skin Skin Exam: Dry, Intact, Normal Color, Warm Assessment and Plan - Assessment and Plan (Free Text) Assessment: 53 yo male with a history of uncontrolled T2DM (s/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 Patient's blood cultures are positive for Staph aureus, currently being treated for bacteremia & discitis & spinal abscess. Plan: Epidural Abscess - MRI L-spine: suspicious for discitis osteomyelitis involving L4-5 intervetebral disc w/ anterior epidural abscess, R iliopsoas fluid collection 1.5x1.9cm - pt reports 3 month history, with radiation and urinary retention - Back pain likely due to this, will hold oxycodone as patient was sleeping peacefully at this time - naproxen 550mg PO q12h PRN - ancef 2000mg IV q8h (07/25) - F/u IR, Dr. Fragoso recs: - psoas collection and spinal abscess too small to drain - F/u NeuroSx, Dr. Olivia recs: - no intervention at this time - F/u ID, Dr. Garcia recs: - 6-8 weeks of abx of ancef 2000mg Q8H; started 07/25/18 - will need through 11/05/17 Dysuria - burning on urination since last night - UA - leuko esterase 2+, WBC 50, squamous 1+ - UC - yeast species > 299786 cfu/ml - fluconazole 100 mg PO daily - continue for 4 more days as patients symptoms are improving - bladder scan revealed < 200 ml urine 08/20 - Added pyridium 100 mg TIDPC for 2 days for symptom relief Anemia - likely of chronic disease - Hgb duration in 8s - 08/22/18 -> 8.0, patient remains asymptomatic - will continue to monitor L Maxillofacial Ulcer - CT 07/25: soft tissue swelling, no osteomyelitis or drainable fluid - Covered w/ ancef 2000mg IV q8h (07/25) for epidural abscess - Will be on 6-8 week course antibiotic treatment, as per ID for epidural abscess - mupirocin 2g top BID - wound care consulted - Pt following up with plastic surgeon at [facility] sep 04 DM type 2 - A1c 8.9 - medium dose Novolin R ISS - blood sugars in 180s - lantus 30u SC daily (increased from 25 to 30 on 08/13) - Hypoglycemia protocol - Accuchecks ACHS - despite persistent education of no sweet/sugar filled drinks, patient continues to have juices at bedside HTN - patient initially HTN in 160s to 170s, no 130s to 150s - ASA 81 mg PO daily - Enalapril 30 mg PO daily - Metoprolol succinate 50 mg PO daily - Norvasc 10mg PO daily Urinary Retention Resolved - CT A/P: bladder wall thickening (cystitis), b/l renal parenchymal high density may be underlying metabolic disorder - I/Os - sagastume catheter (07/27) - flomax 0.4mg PO BID - finasteride 5mg PO daily - Urology consulted: Titi Kam - maintain sagastume until outpatient follow - Sagastume D/C'ed @ 10 AM on 08/13, patient has been urinating freely CAP Resolved - CXR 08/06: no active disease - CT A/P: LLL consolidation vs atelectasis - ancef 2000mg IV q8h (07/25) Staph Aureus Bacteremia: Resolved - Initially: Blood Cx positive for Staph aureus (07/21); F/u Blood Cx negative 07/28 X 5 days - Urine Cx: no growth - Procal 14.74, Tmax 100.8 (08/01) - Tylenol 650 mg PO Q6H PRN - Echo: LV normal size and EF. LA mildly dilated. Mild TR - F/u cardio, Dr. Ge recs: - consider KASH if BCx+ in future, signed off - F/u ID, Dr. Garcia recs: - 6-8 week course antibiotic treatment, as per ID - ancef 2000mg IV q8h (07/25), as per ID - likely source: spinal abscess Unresponsiveness Resolved AAOx3 Previously - Code stroke - EEG: nonspecific abnormalities, no seizures noted - CT head: no acute findings - CTA head and neck: no significant stenoses or abnormalities - PRL wnl (12.9) - Gabapentin 100 mg PO TID - Neurology consulted: Manda - no need for anticonvulsant at this time Ppx: DVT: Heparin 5000 units Q12H GI: Protonix 40 mg PO daily Labs: CBC/ CMP Q2D Mag/Phs Q4D Diabetic Diet PT/OT: GARRETT Dispo: pt without insurance and undocumented citizen, pending medicaid acceptance. Likely to stay for duration of antibiotic tx course.
[2018-08-25] MEDS: (Novolin R) Insulin Human Regular 100 units/ml vial SC SCH ×4 (08:43→21:34)
[2018-08-25] MEDS: Lactobacillus Acidophilus 500 MU Cap PO SCH ×2 (10:45→17:44)
[2018-08-25] MEDS: Metoprolol Succinate 50 mg XL Tab PO SCH (10:45)
[2018-08-25] MEDS: Lidocaine 5% Patch TD SCH (10:47)
[2018-08-25] MEDS: Naproxen 275 mg Tab PO PRN (10:47)
[2018-08-25] MEDS: (Lantus) Insulin Glargine, Recombinant SC SCH (10:47)
[2018-08-26 06:44] LABS: BASO % 0.5 % (0.0-2.0); EOS # 0.3 K/uL (0.0-0.7); EOS % 4.1 % (0.0-4.0); HEMOGLOBIN 8.3 g/dL (12.0-18.0); LYMPH # 1.9 K/uL (1.0-4.3); LYMPH % 22.9 % (20.0-40.0); MEAN CELL VOLUME 85.9 fL (80.0-94.0); MEAN CORPUSCULAR HEMOGLOBIN 29.1 pg (27.0-31.0); MEAN CORPUSCULAR HGB CONC 33.9 g/dL (33.0-37.0); MEAN PLATELET VOLUME 8.3 fL (7.2-11.7); MONO # 0.7 K/uL (0.0-0.8); MONO % 8.3 % (0.0-10.0); NEUT # 5.3 K/uL (1.8-7.0); NEUT % 64.2 % (50.0-75.0); RBC 2.84 Mil/uL (4.40-5.90); RED CELL DISTRIBUTION WIDTH 14.8 % (11.5-14.5); WHITE BLOOD COUNT 8.3 K/uL (4.8-10.8)
[2018-08-26 06:45] LABS: ALB/GLOB RATIO 0.7 (1.0-2.1); ALT/SGPT < 6 U/L (21-72); AST/SGOT 21 U/L (17-59); BLOOD UREA NITROGEN 23 mg/dL (9-20); CALCIUM 7.9 mg/dl (8.6-10.4); GFR NON-AFRICAN AMERICAN > 60
--- NOTE | 2018-08-26 07:14 | CP.PCM.PN ---
<Rodriguez An M - Last Filed: 08/26/18 15:17> Subjective - Date & Time of Evaluation Date of Evaluation: 08/26/18 Time of Evaluation: 07:10 - Subjective Subjective: PGY1 Medicine Progress note for Dr. Curiel Patient seen and examined at bedside. No overnight events reported. Patient sitting in bed comfortably. Patient states he feels much better from yesterday. His states his pain in his back is minimal, and is worsened with motion. Patient states his burning on urination has resolved. Additionally patient states he is producing good urine. Patient denies chest pain, SOB, abdominal pain, nausea, vomiting. Patient admits to no bowel movement for 2 days. Objective - Vital Signs/Intake and Output Vital Signs (last 24 hours): Temp Pulse Resp BP Pulse Ox 97.5 F L 82 20 159/78 H 97 08/26/18 00:00 08/26/18 00:00 08/26/18 00:00 08/26/18 00:00 08/26/18 00:00 Intake and Output: 08/26/18 08/26/18 06:59 18:59 Intake Total 350 Output Total 600 Balance -250 - Medications Medications: Current Medications Acetaminophen (Tylenol 325mg Tab) 650 mg PO Q6 PRN PRN Reason: Fever >100.4 or Pain Last Admin: 08/21/18 13:47 Dose: 650 mg Amlodipine Besylate (Norvasc) 10 mg PO DAILY [facility] Last Admin: 08/25/18 10:45 Dose: 10 mg Aspirin (Ecotrin) 81 mg PO DAILY [facility] Last Admin: 08/25/18 10:46 Dose: 81 mg Docusate Sodium (Colace) 100 mg PO TID [facility] Last Admin: 08/25/18 17:44 Dose: 100 mg Enalapril Maleate (Vasotec) 30 mg PO DAILY [facility] Last Admin: 08/25/18 10:46 Dose: 30 mg Famotidine (Pepcid) 20 mg PO DAILY [facility] Last Admin: 08/25/18 10:46 Dose: 20 mg Ferrous Sulfate (Feosol) 325 mg PO TID [facility] Last Admin: 08/25/18 17:48 Dose: 325 mg Finasteride (Proscar) 5 mg PO DAILY [facility] Last Admin: 08/25/18 10:45 Dose: 5 mg Fluconazole (Diflucan) 100 mg PO DAILY [facility]; Protocol Stop: 08/28/18 10:01 Last Admin: 08/25/18 10:46 Dose: 100 mg Gabapentin (Neurontin) 200 mg PO TID [facility] Last Admin: 08/25/18 17:45 Dose: 200 mg Heparin Sodium (Porcine) (Heparin) 5,000 units SC BID [facility] Last Admin: 08/25/18 17:45 Dose: 5,000 units Cefazolin Sodium 2,000 mg/ (Sodium Chloride) 50 mls @ 100 mls/hr IVPB Q8H [facility]; Protocol Last Admin: 08/26/18 02:13 Dose: 100 mls/hr Insulin Glargine (Lantus) 30 unit SC DAILY [facility] Last Admin: 08/25/18 10:47 Dose: 30 units Insulin Human Regular (Novolin R) 0 unit SC ACHS [facility]; Protocol Last Admin: 08/25/18 21:34 Dose: Not Given Lactobacillus Acidophilus (Bacid Acidophilus) 1 cap PO BID [facility] Last Admin: 08/25/18 17:44 Dose: 1 cap Lidocaine (Lidoderm) 1 ea TD DAILY [facility] Last Admin: 08/25/18 10:47 Dose: 1 ea Metoprolol Succinate (Toprol Xl) 50 mg PO DAILY [facility] Last Admin: 08/25/18 10:45 Dose: 50 mg Mupirocin (Bactroban Ointment) 0 gm TOP BID [facility] Last Admin: 08/25/18 17:52 Dose: 1 applic Naproxen (Anaprox) 275 mg PO BID PRN PRN Reason: Pain, moderate (4-7) Last Admin: 08/25/18 10:47 Dose: 275 mg Polyethylene Glycol (Miralax) 17 gm PO HS PRN PRN Reason: Constipation Polyethylene Glycol (Miralax) 17 gm PO MWF [facility] Last Admin: 08/23/18 09:05 Dose: 17 gm Tamsulosin HCl (Flomax) 0.4 mg PO BID [facility] Last Admin: 08/25/18 17:44 Dose: 0.4 mg - Labs Labs: 08/26/18 06:13 08/26/18 06:13 PT 15.6 SECONDS (9.7-12.2) H 07/21/18 20:28 INR 1.4 07/21/18 20:28 APTT 34 SECONDS (21-34) 07/21/18 20:28 - Constitutional Appears: Non-toxic, No Acute Distress - Head Exam Head Exam: NORMAL INSPECTION - Eye Exam Eye Exam: Normal appearance - ENT Exam ENT Exam: Mucous Membranes Moist Additional comments: ulcerative lesion on the L nare and L malar region, erythema with slight granulation tissue. no drainage noted. cartilage visible. - Respiratory Exam Respiratory Exam: Clear to Ausculation Bilateral, NORMAL BREATHING PATTERN. absent: Rales, Wheezes - Cardiovascular Exam Cardiovascular Exam: +S1, +S2 - GI/Abdominal Exam GI & Abdominal Exam: Soft, Normal Bowel Sounds - Extremities Exam Additional comments: B/L BKA - Back Exam Back Exam: absent: CVA tenderness (L), CVA tenderness (R) Additional comments: No Sacral ulcers - Neurological Exam Neurological Exam: Alert, Awake - Psychiatric Exam Psychiatric exam: Normal Affect, Normal Mood - Skin Skin Exam: Dry, Intact, Normal Color, Warm Assessment and Plan - Assessment and Plan (Free Text) Assessment: 53 yo male with a history of uncontrolled T2DM (s/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 Patient's blood cultures are positive for Staph aureus, currently being treated for bacteremia & discitis & spinal abscess. Plan: Epidural Abscess - MRI L-spine: suspicious for discitis osteomyelitis involving L4-5 intervetebral disc w/ anterior epidural abscess, R iliopsoas fluid collection 1.5x1.9cm - pt reports 3 month history, with radiation and urinary retention - Back pain likely due to this, will hold oxycodone as patient was sleeping peacefully at this time - naproxen 550mg PO q12h PRN - ancef 2000mg IV q8h (07/25) - F/u IR, Dr. Fragoso recs: - psoas collection and spinal abscess too small to drain - F/u NeuroSx, Dr. Olivia recs: - no intervention at this time - F/u ID, Dr. Garcia recs: - 6-8 weeks of abx of ancef 2000mg Q8H; started 07/25/18 - will need through 09/04/18 - will f/u w/ Dr. Garcia if further imagining is required prior to d/c Anemia - likely of chronic disease - Hgb duration in 8s - 08/22/18 -> 8.0, patient remains asymptomatic - will continue to monitor L Maxillofacial Ulcer - CT 07/25: soft tissue swelling, no osteomyelitis or drainable fluid - Covered w/ ancef 2000mg IV q8h (07/25) for epidural abscess - Will be on 6-8 week course antibiotic treatment, as per ID for epidural abscess - mupirocin 2g top BID - wound care consulted - Pt following up with plastic surgeon at [facility] sep 04 - Patient has contact information DM type 2 - A1c 8.9 - medium dose Novolin R ISS - blood sugars in 180s - lantus 30u SC daily (increased from 25 to 30 on 08/13) - Hypoglycemia protocol - Accuchecks ACHS - despite persistent education of no sweet/sugar filled drinks, patient continues to have juices at bedside - Diabetic diet education referral HTN - patient initially HTN in 160s to 170s, no 130s to 150s - ASA 81 mg PO daily - Enalapril 30 mg PO daily - Metoprolol succinate 50 mg PO daily - Norvasc 10mg PO daily Urinary Retention Resolved - CT A/P: bladder wall thickening (cystitis), b/l renal parenchymal high density may be underlying metabolic disorder - I/Os - sagastume catheter (07/27) - flomax 0.4mg PO BID - finasteride 5mg PO daily - Urology consulted: Titi Kam - maintain sagastume until outpatient follow - Sagastume D/C'ed @ 10 AM on 08/13, patient has been urinating freely CAP Resolved - CXR 08/06: no active disease - CT A/P: LLL consolidation vs atelectasis - ancef 2000mg IV q8h (07/25) Staph Aureus Bacteremia: Resolved - Initially: Blood Cx positive for Staph aureus (07/21); F/u Blood Cx negative 07/28 X 5 days - Urine Cx: no growth - Procal 14.74, Tmax 100.8 (08/01) - Tylenol 650 mg PO Q6H PRN - Echo: LV normal size and EF. LA mildly dilated. Mild TR - F/u cardio, Dr. Ge recs: - consider KASH if BCx+ in future, signed off - F/u ID, Dr. Garcia recs: - 6-8 week course antibiotic treatment, as per ID - ancef 2000mg IV q8h (07/25), as per ID - likely source: spinal abscess Unresponsiveness Resolved AAOx3 Previously - Code stroke - EEG: nonspecific abnormalities, no seizures noted - CT head: no acute findings - CTA head and neck: no significant stenoses or abnormalities - PRL wnl (12.9) - Gabapentin 100 mg PO TID - Neurology consulted: Manda - no need for anticonvulsant at this time Dysuria Resolved - burning on urination since last night - UA - leuko esterase 2+, WBC 50, squamous 1+ - UC - yeast species > 056508 cfu/ml - fluconazole 100 mg PO daily - continue for 4 more days as patients symptoms are improving - bladder scan revealed < 200 ml urine 08/20 - Added pyridium 100 mg TIDPC for 2 days for symptom relief Ppx: DVT: Heparin 5000 units Q12H GI: Protonix 40 mg PO daily Labs: CBC/ CMP Q2D Mag/Phs Q4D Diabetic Diet Patient may shower PT/OT: GARRETT; f/u recs for d/c recs for 09/04 Dispo: pt without insurance and undocumented citizen, pending medicaid acceptance. Likely to stay for duration of antibiotic tx course. Will discuss with social welfare research worker for possible wheelchair for patient upon discharge. <Mila Curiel - Last Filed: 08/30/18 19:56> Objective - Vital Signs/Intake and Output Vital Signs (last 24 hours): Temp Pulse Resp BP Pulse Ox 99.8 F H 87 20 143/74 98 08/30/18 16:00 08/30/18 16:00 08/30/18 16:00 08/30/18 16:00 08/30/18 16:00 Intake and Output: 08/30/18 08/31/18 18:59 06:59 Intake Total 250 Output Total 800 Balance -550 - Medications Medications: Current Medications Acetaminophen (Tylenol 325mg Tab) 650 mg PO Q6 PRN PRN Reason: Fever >100.4 or Pain Last Admin: 08/21/18 13:47 Dose: 650 mg Amlodipine Besylate (Norvasc) 10 mg PO DAILY [facility] Last Admin: 08/30/18 10:07 Dose: 10 mg Aspirin (Ecotrin) 81 mg PO DAILY [facility] Last Admin: 08/30/18 10:07 Dose: 81 mg Docusate Sodium (Colace) 100 mg PO TID [facility] Last Admin: 08/30/18 17:54 Dose: 100 mg Enalapril Maleate (Vasotec) 40 mg PO DAILY [facility] Last Admin: 08/30/18 10:09 Dose: 40 mg Famotidine (Pepcid) 20 mg PO DAILY [facility] Last Admin: 08/30/18 10:06 Dose: 20 mg Ferrous Sulfate (Feosol) 325 mg PO TID [facility] Last Admin: 08/30/18 17:55 Dose: 325 mg Finasteride (Proscar) 5 mg PO DAILY [facility] Last Admin: 08/30/18 10:08 Dose: 5 mg Gabapentin (Neurontin) 200 mg PO TID [facility] Last Admin: 08/30/18 17:55 Dose: 200 mg Heparin Sodium (Porcine) (Heparin) 5,000 units SC BID [facility] Last Admin: 08/30/18 17:55 Dose: 5,000 units Cefazolin Sodium 2,000 mg/ (Sodium Chloride) 50 mls @ 100 mls/hr IVPB Q8H [facility]; Protocol Last Admin: 08/30/18 10:12 Dose: 100 mls/hr Insulin Glargine (Lantus) 30 unit SC DAILY [facility] Last Admin: 08/30/18 10:03 Dose: 30 units Insulin Human Regular (Novolin R) 0 unit SC ACHS [facility]; Protocol Last Admin: 08/30/18 17:56 Dose: 4 units Lactobacillus Acidophilus (Bacid Acidophilus) 1 cap PO BID [facility] Last Admin: 08/30/18 17:54 Dose: 1 cap Lidocaine (Lidoderm) 1 ea TD DAILY [facility] Last Admin: 08/30/18 10:03 Dose: 1 ea Metoprolol Succinate (Toprol Xl) 50 mg PO DAILY [facility] Last Admin: 08/30/18 10:06 Dose: 50 mg Mupirocin (Bactroban Ointment) 0 gm TOP DAILY [facility] Last Admin: 08/30/18 10:14 Dose: 1 applic Naproxen (Anaprox) 275 mg PO BID PRN PRN Reason: Pain, moderate (4-7) Last Admin: 08/30/18 14:32 Dose: 275 mg Oxycodone/Acetaminophen (Percocet 5/325 Mg Tab) 1 tab PO DAILY PRN PRN Reason: Pain, moderate (4-7) Stop: 09/05/18 16:29 Polyethylene Glycol (Miralax) 17 gm PO HS PRN PRN Reason: Constipation Polyethylene Glycol (Miralax) 17 gm PO MWF [facility] Last Admin: 08/30/18 10:03 Dose: 17 gm Tamsulosin HCl (Flomax) 0.4 mg PO BID [facility] Last Admin: 08/30/18 17:55 Dose: 0.4 mg Vitamin A (Vitamin A & D Oint Ud Foilpak) 1 ea TOP BID [facility] Last Admin: 08/30/18 17:56 Dose: 1 ea - Labs Labs: 08/30/18 07:55 08/30/18 07:55 PT 15.6 SECONDS (9.7-12.2) H 07/21/18 20:28 INR 1.4 07/21/18 20:28 APTT 34 SECONDS (21-34) 07/21/18 20:28 Attending/Attestation - Attestation I have personally seen and examined this patient.: Yes I have fully participated in the care of the patient.: Yes I have reviewed all pertinent clinical information, including history, physical exam and plan: Yes
[2018-08-26] MEDS: (Novolin R) Insulin Human Regular 100 units/ml vial SC SCH ×4 (08:25→21:28)
[2018-08-26] MEDS: Lidocaine 5% Patch TD SCH (10:34)
[2018-08-26] MEDS: Metoprolol Succinate 50 mg XL Tab PO SCH (10:35)
[2018-08-26] MEDS: Lactobacillus Acidophilus 500 MU Cap PO SCH ×2 (10:35→17:21)
[2018-08-26] MEDS: POLYETHYLENE GLYCOL 3350 17 GM/Dose PACKET PO SCH (10:36)
[2018-08-26] MEDS: (Lantus) Insulin Glargine, Recombinant SC SCH (10:46)
--- NOTE | 2018-08-27 06:58 | CP.PCM.PN ---
<Rodriguez An M - Last Filed: 08/27/18 13:04> Subjective - Date & Time of Evaluation Date of Evaluation: 08/27/18 Time of Evaluation: 07:50 - Subjective Subjective: PGY1 Medicine Progress note for Dr. Curiel. Patient seen and examined at bedside. No overnight events reported. Patient sitting in bed comfortably. Patient has only complaint of persistent L sided back pain that has been present for the past couple of weeks. Patient denies any further complaints. Patient denies chest pain, SOB, abdominal pian, N/V, F/C. Patient states he has a strong urinary stream and has no dysuria, hematuria. Objective - Vital Signs/Intake and Output Vital Signs (last 24 hours): Temp Pulse Resp BP Pulse Ox 98.1 F 87 20 157/74 H 97 08/26/18 23:21 08/26/18 23:21 08/26/18 23:21 08/26/18 23:21 08/26/18 23:21 Intake and Output: 08/26/18 08/27/18 18:59 06:59 Intake Total 840 Balance 840 - Medications Medications: Current Medications Acetaminophen (Tylenol 325mg Tab) 650 mg PO Q6 PRN PRN Reason: Fever >100.4 or Pain Last Admin: 08/21/18 13:47 Dose: 650 mg Amlodipine Besylate (Norvasc) 10 mg PO DAILY [facility] Last Admin: 08/26/18 10:34 Dose: 10 mg Aspirin (Ecotrin) 81 mg PO DAILY [facility] Last Admin: 08/26/18 10:35 Dose: 81 mg Docusate Sodium (Colace) 100 mg PO TID [facility] Last Admin: 08/26/18 17:22 Dose: 100 mg Enalapril Maleate (Vasotec) 30 mg PO DAILY [facility] Last Admin: 08/26/18 10:38 Dose: 30 mg Famotidine (Pepcid) 20 mg PO DAILY [facility] Last Admin: 08/26/18 10:35 Dose: 20 mg Ferrous Sulfate (Feosol) 325 mg PO TID [facility] Last Admin: 08/26/18 17:21 Dose: 325 mg Finasteride (Proscar) 5 mg PO DAILY [facility] Last Admin: 08/26/18 10:43 Dose: Not Given Fluconazole (Diflucan) 100 mg PO DAILY [facility]; Protocol Stop: 08/28/18 10:01 Last Admin: 08/26/18 10:35 Dose: 100 mg Gabapentin (Neurontin) 200 mg PO TID [facility] Last Admin: 08/26/18 17:21 Dose: 200 mg Heparin Sodium (Porcine) (Heparin) 5,000 units SC BID [facility] Last Admin: 08/26/18 17:22 Dose: 5,000 units Cefazolin Sodium 2,000 mg/ (Sodium Chloride) 50 mls @ 100 mls/hr IVPB Q8H [facility]; Protocol Last Admin: 08/27/18 03:29 Dose: 100 mls/hr Insulin Glargine (Lantus) 30 unit SC DAILY [facility] Last Admin: 08/26/18 10:46 Dose: 30 units Insulin Human Regular (Novolin R) 0 unit SC ACHS [facility]; Protocol Last Admin: 08/26/18 21:28 Dose: Not Given Lactobacillus Acidophilus (Bacid Acidophilus) 1 cap PO BID [facility] Last Admin: 08/26/18 17:21 Dose: 1 cap Lidocaine (Lidoderm) 1 ea TD DAILY [facility] Last Admin: 08/26/18 10:34 Dose: 1 ea Metoprolol Succinate (Toprol Xl) 50 mg PO DAILY [facility] Last Admin: 08/26/18 10:35 Dose: 50 mg Mupirocin (Bactroban Ointment) 0 gm TOP BID [facility] Last Admin: 08/26/18 18:48 Dose: 1 applic Naproxen (Anaprox) 275 mg PO BID PRN PRN Reason: Pain, moderate (4-7) Last Admin: 08/25/18 10:47 Dose: 275 mg Polyethylene Glycol (Miralax) 17 gm PO HS PRN PRN Reason: Constipation Polyethylene Glycol (Miralax) 17 gm PO MWF [facility] Last Admin: 08/26/18 10:36 Dose: 17 gm Tamsulosin HCl (Flomax) 0.4 mg PO BID [facility] Last Admin: 08/26/18 17:21 Dose: 0.4 mg - Labs Labs: 08/26/18 06:13 08/26/18 06:13 PT 15.6 SECONDS (9.7-12.2) H 07/21/18 20:28 INR 1.4 07/21/18 20:28 APTT 34 SECONDS (21-34) 07/21/18 20:28 - Constitutional Appears: Non-toxic, No Acute Distress - Head Exam Head Exam: NORMAL INSPECTION - Eye Exam Eye Exam: Normal appearance - ENT Exam Additional comments: ulcerative lesion on the L nare and L malar region, erythema with slight granulation tissue. no drainage noted. cartilage visible. - Respiratory Exam Respiratory Exam: Clear to Ausculation Bilateral, NORMAL BREATHING PATTERN. absent: Rhonchi, Wheezes - Cardiovascular Exam Cardiovascular Exam: +S1, +S2 - GI/Abdominal Exam GI & Abdominal Exam: Soft, Normal Bowel Sounds - Extremities Exam Additional comments: B/L BKA - Back Exam Back Exam: absent: CVA tenderness (L), CVA tenderness (R) Additional comments: No Sacral ulcers - Neurological Exam Neurological Exam: Alert, Awake, Oriented x3 - Skin Skin Exam: Dry, Intact, Normal Color, Warm Assessment and Plan - Assessment and Plan (Free Text) Assessment: 53 yo male with a history of uncontrolled T2DM (s/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 Patient's blood cultures are positive for Staph aureus, currently being treated for bacteremia & discitis & spinal abscess. Plan: Epidural Abscess - MRI L-spine: suspicious for discitis osteomyelitis involving L4-5 intervetebral disc w/ anterior epidural abscess, R iliopsoas fluid collection 1.5x1.9cm - pt reports 3 month history, with radiation and urinary retention - Back pain - pt denies pain while laying in bed - per PT, patient refuses due to back pain - naproxen 550mg PO q12h PRN - percocet 5/325 X2 tabs daily 30 mins prior physical therapy - ancef 2000mg IV q8h (07/25) - F/u IR, Dr. Fragoso recs: - psoas collection and spinal abscess too small to drain - F/u NeuroSx, Dr. Olivia recs: - no intervention at this time - F/u ID, Dr. Garcia recs: - 6-8 weeks of abx of ancef 2000mg Q8H; started 07/25/18 - will need through 09/04/18 - F/u MRI lumbar spinal canal w/o contrast on 09/02 Anemia - likely of chronic disease - Hgb stable in 8s - patient remains asymptomatic - will continue to monitor L Maxillofacial Ulcer - CT 07/25: soft tissue swelling, no osteomyelitis or drainable fluid - Covered w/ ancef 2000mg IV q8h (07/25) for epidural abscess - Will be on 6-8 week course antibiotic treatment, as per ID for epidural abscess - mupirocin 2g top BID - wound care consulted - Pt following up with plastic surgeon at [facility] sep 04 - Patient has contact information DM type 2 - A1c 8.9 - medium dose Novolin R ISS - blood sugars in 180s - lantus 30u SC daily (increased from 25 to 30 on 08/13) - Hypoglycemia protocol - Accuchecks ACHS - despite persistent education of no sweet/sugar filled drinks, patient continues to have juices at bedside - Diabetic diet education referral HTN - patient initially HTN in 160s to 170s, no 130s to 150s - ASA 81 mg PO daily - Enalapril 30 mg PO daily - Metoprolol succinate 50 mg PO daily - Norvasc 10mg PO daily Urinary Retention Resolved - CT A/P: bladder wall thickening (cystitis), b/l renal parenchymal high density may be underlying metabolic disorder - I/Os - sagastume catheter (07/27) - flomax 0.4mg PO BID - finasteride 5mg PO daily - Urology consulted: Titi Kam - maintain sagastume until outpatient follow - Sagastume D/C'ed @ 10 AM on 08/13, patient has been urinating freely CAP Resolved - CXR 08/06: no active disease - CT A/P: LLL consolidation vs atelectasis - ancef 2000mg IV q8h (07/25) Staph Aureus Bacteremia: Resolved - Initially: Blood Cx positive for Staph aureus (07/21); F/u Blood Cx negative 07/28 X 5 days - Urine Cx: no growth - Procal 14.74, Tmax 100.8 (08/01) - Tylenol 650 mg PO Q6H PRN - Echo: LV normal size and EF. LA mildly dilated. Mild TR - F/u cardio, Dr. Ge recs: - consider KASH if BCx+ in future, signed off - F/u ID, Dr. Garcia recs: - 6-8 week course antibiotic treatment, as per ID - ancef 2000mg IV q8h (07/25), as per ID - likely source: spinal abscess Unresponsiveness Resolved AAOx3 Previously - Code stroke - EEG: nonspecific abnormalities, no seizures noted - CT head: no acute findings - CTA head and neck: no significant stenoses or abnormalities - PRL wnl (12.9) - Gabapentin 100 mg PO TID - Neurology consulted: Manda - no need for anticonvulsant at this time Dysuria Resolved - burning on urination since last night - UA - leuko esterase 2+, WBC 50, squamous 1+ - UC - yeast species > 236403 cfu/ml - fluconazole 100 mg PO daily - continue for 4 more days as patients symptoms are improving - bladder scan revealed < 200 ml urine 08/20 - Added pyridium 100 mg TIDPC for 2 days for symptom relief Ppx: DVT: Heparin 5000 units Q12H GI: Protonix 40 mg PO daily Labs: CBC/ CMP Q2D Mag/Phs Q4D Diabetic Diet Patient may shower PT/OT: f/u recs for d/c recs for 09/04; percocet 5/325 X2 tabs daily 30 mins prior physical therapy Dispo: pt without insurance and undocumented citizen, pending medicaid acceptance. Likely to stay for duration of antibiotic tx course. Discussed with bilingual social worker for wheelchair for patient upon discharge. F/u MRI on 09/02. <Mila Curiel - Last Filed: 08/30/18 19:51> Objective - Vital Signs/Intake and Output Vital Signs (last 24 hours): Temp Pulse Resp BP Pulse Ox 99.8 F H 87 20 143/74 98 08/30/18 16:00 08/30/18 16:00 08/30/18 16:00 08/30/18 16:00 08/30/18 16:00 Intake and Output: 08/30/18 08/31/18 18:59 06:59 Intake Total 250 Output Total 800 Balance -550 - Medications Medications: Current Medications Acetaminophen (Tylenol 325mg Tab) 650 mg PO Q6 PRN PRN Reason: Fever >100.4 or Pain Last Admin: 08/21/18 13:47 Dose: 650 mg Amlodipine Besylate (Norvasc) 10 mg PO DAILY [facility] Last Admin: 08/30/18 10:07 Dose: 10 mg Aspirin (Ecotrin) 81 mg PO DAILY [facility] Last Admin: 08/30/18 10:07 Dose: 81 mg Docusate Sodium (Colace) 100 mg PO TID [facility] Last Admin: 08/30/18 17:54 Dose: 100 mg Enalapril Maleate (Vasotec) 40 mg PO DAILY [facility] Last Admin: 08/30/18 10:09 Dose: 40 mg Famotidine (Pepcid) 20 mg PO DAILY [facility] Last Admin: 08/30/18 10:06 Dose: 20 mg Ferrous Sulfate (Feosol) 325 mg PO TID [facility] Last Admin: 08/30/18 17:55 Dose: 325 mg Finasteride (Proscar) 5 mg PO DAILY [facility] Last Admin: 08/30/18 10:08 Dose: 5 mg Gabapentin (Neurontin) 200 mg PO TID [facility] Last Admin: 08/30/18 17:55 Dose: 200 mg Heparin Sodium (Porcine) (Heparin) 5,000 units SC BID [facility] Last Admin: 08/30/18 17:55 Dose: 5,000 units Cefazolin Sodium 2,000 mg/ (Sodium Chloride) 50 mls @ 100 mls/hr IVPB Q8H [facility]; Protocol Last Admin: 08/30/18 10:12 Dose: 100 mls/hr Insulin Glargine (Lantus) 30 unit SC DAILY [facility] Last Admin: 08/30/18 10:03 Dose: 30 units Insulin Human Regular (Novolin R) 0 unit SC ACHS [facility]; Protocol Last Admin: 08/30/18 17:56 Dose: 4 units Lactobacillus Acidophilus (Bacid Acidophilus) 1 cap PO BID [facility] Last Admin: 08/30/18 17:54 Dose: 1 cap Lidocaine (Lidoderm) 1 ea TD DAILY [facility] Last Admin: 08/30/18 10:03 Dose: 1 ea Metoprolol Succinate (Toprol Xl) 50 mg PO DAILY [facility] Last Admin: 08/30/18 10:06 Dose: 50 mg Mupirocin (Bactroban Ointment) 0 gm TOP DAILY [facility] Last Admin: 08/30/18 10:14 Dose: 1 applic Naproxen (Anaprox) 275 mg PO BID PRN PRN Reason: Pain, moderate (4-7) Last Admin: 08/30/18 14:32 Dose: 275 mg Oxycodone/Acetaminophen (Percocet 5/325 Mg Tab) 1 tab PO DAILY PRN PRN Reason: Pain, moderate (4-7) Stop: 12/13/18 16:29 Polyethylene Glycol (Miralax) 17 gm PO HS PRN PRN Reason: Constipation Polyethylene Glycol (Miralax) 17 gm PO MWF [facility] Last Admin: 08/30/18 10:03 Dose: 17 gm Tamsulosin HCl (Flomax) 0.4 mg PO BID [facility] Last Admin: 08/30/18 17:55 Dose: 0.4 mg Vitamin A (Vitamin A & D Oint Ud Foilpak) 1 ea TOP BID [facility] Last Admin: 08/30/18 17:56 Dose: 1 ea - Labs Labs: 08/30/18 07:55 08/30/18 07:55 PT 15.6 SECONDS (9.7-12.2) H 07/21/18 20:28 INR 1.4 07/21/18 20:28 APTT 34 SECONDS (21-34) 07/21/18 20:28 Attending/Attestation - Attestation I have personally seen and examined this patient.: Yes I have fully participated in the care of the patient.: Yes I have reviewed all pertinent clinical information, including history, physical exam and plan: Yes Notes (Text): seen and examined I agree with the documentation
[2018-08-27] MEDS: (Novolin R) Insulin Human Regular 100 units/ml vial SC SCH ×4 (07:57→21:54)
[2018-08-27] MEDS: Lactobacillus Acidophilus 500 MU Cap PO SCH ×2 (10:47→17:40)
[2018-08-27] MEDS: Metoprolol Succinate 50 mg XL Tab PO SCH (10:48)
[2018-08-27] MEDS: Naproxen 275 mg Tab PO PRN (10:51)
[2018-08-27] MEDS: Lidocaine 5% Patch TD SCH (11:12)
[2018-08-27] MEDS: (Lantus) Insulin Glargine, Recombinant SC SCH (11:12)
--- NOTE | 2018-08-28 06:22 | CP.PCM.PN ---
<Rodriguez An M - Last Filed: 08/28/18 16:11> Subjective - Date & Time of Evaluation Date of Evaluation: 08/28/18 Time of Evaluation: 07:10 - Subjective Subjective: PGY 1 Medicine Progress Note for Hospitalist Dr. Curiel. Patient seen and examined at bedside. No overnight events reported. Patient lying comfortably in bed. Patient complains of persistent back pain, but otherwise states he is feeling fine. Patient has no other complaints. Patient denies chest pain, nausea, vomiting, dysuria, hematuria, headaches, vision malathi nges. Objective - Vital Signs/Intake and Output Vital Signs (last 24 hours): Temp Pulse Resp BP Pulse Ox 98.1 F 82 20 131/63 97 08/27/18 23:23 08/27/18 23:23 08/27/18 23:23 08/27/18 23:23 08/27/18 23:23 - Medications Medications: Current Medications Acetaminophen (Tylenol 325mg Tab) 650 mg PO Q6 PRN PRN Reason: Fever >100.4 or Pain Last Admin: 08/21/18 13:47 Dose: 650 mg Amlodipine Besylate (Norvasc) 10 mg PO DAILY [facility] Last Admin: 08/27/18 10:47 Dose: 10 mg Aspirin (Ecotrin) 81 mg PO DAILY [facility] Last Admin: 08/27/18 10:47 Dose: 81 mg Docusate Sodium (Colace) 100 mg PO TID [facility] Last Admin: 08/27/18 17:39 Dose: 100 mg Enalapril Maleate (Vasotec) 30 mg PO DAILY [facility] Last Admin: 08/27/18 10:50 Dose: 30 mg Famotidine (Pepcid) 20 mg PO DAILY [facility] Last Admin: 08/27/18 10:48 Dose: 20 mg Ferrous Sulfate (Feosol) 325 mg PO TID [facility] Last Admin: 08/27/18 17:40 Dose: 325 mg Finasteride (Proscar) 5 mg PO DAILY [facility] Last Admin: 08/27/18 10:49 Dose: Not Given Fluconazole (Diflucan) 100 mg PO DAILY [facility]; Protocol Stop: 08/28/18 10:01 Last Admin: 08/27/18 10:48 Dose: 100 mg Gabapentin (Neurontin) 200 mg PO TID [facility] Last Admin: 08/27/18 17:40 Dose: 200 mg Heparin Sodium (Porcine) (Heparin) 5,000 units SC BID [facility] Last Admin: 08/27/18 17:39 Dose: 5,000 units Cefazolin Sodium 2,000 mg/ (Sodium Chloride) 50 mls @ 100 mls/hr IVPB Q8H [facility]; Protocol Last Admin: 08/28/18 04:00 Dose: 100 mls/hr Insulin Glargine (Lantus) 30 unit SC DAILY [facility] Last Admin: 08/27/18 11:12 Dose: 30 units Insulin Human Regular (Novolin R) 0 unit SC ACHS [facility]; Protocol Last Admin: 08/27/18 21:54 Dose: Not Given Lactobacillus Acidophilus (Bacid Acidophilus) 1 cap PO BID [facility] Last Admin: 08/27/18 17:40 Dose: 1 cap Lidocaine (Lidoderm) 1 ea TD DAILY [facility] Last Admin: 08/27/18 11:12 Dose: 1 ea Metoprolol Succinate (Toprol Xl) 50 mg PO DAILY [facility] Last Admin: 08/27/18 10:48 Dose: 50 mg Mupirocin (Bactroban Ointment) 0 gm TOP BID [facility] Last Admin: 08/27/18 17:41 Dose: 1 applic Naproxen (Anaprox) 275 mg PO BID PRN PRN Reason: Pain, moderate (4-7) Last Admin: 08/27/18 10:51 Dose: 275 mg Oxycodone/Acetaminophen (Percocet 5/325 Mg Tab) 2 tab PO DAILY PRN PRN Reason: Pain, moderate (4-7) Stop: 08/30/18 13:16 Polyethylene Glycol (Miralax) 17 gm PO HS PRN PRN Reason: Constipation Polyethylene Glycol (Miralax) 17 gm PO MWF [facility] Last Admin: 08/26/18 10:36 Dose: 17 gm Tamsulosin HCl (Flomax) 0.4 mg PO BID [facility] Last Admin: 08/27/18 17:40 Dose: 0.4 mg - Labs Labs: 08/26/18 06:13 08/26/18 06:13 PT 15.6 SECONDS (9.7-12.2) H 07/21/18 20:28 INR 1.4 07/21/18 20:28 APTT 34 SECONDS (21-34) 07/21/18 20:28 - Constitutional Appears: Non-toxic, No Acute Distress - Head Exam Head Exam: NORMAL INSPECTION - ENT Exam Additional comments: ulcerative lesion on the L nare and L malar region, erythema with slight granulation tissue. no drainage noted. cartilage visible. - Respiratory Exam Respiratory Exam: Clear to Ausculation Bilateral, NORMAL BREATHING PATTERN. absent: Rales, Rhonchi, Wheezes - Cardiovascular Exam Cardiovascular Exam: +S1, +S2 - Extremities Exam Extremities Exam: Full ROM Additional comments: B/L BKA - Back Exam Back Exam: paraspinal tenderness. absent: CVA tenderness (R) Additional comments: L > R tenderness lumbar region No Sacral ulcers - Neurological Exam Neurological Exam: Alert, Awake, Oriented x3 - Psychiatric Exam Psychiatric exam: Normal Affect, Normal Mood - Skin Skin Exam: Dry, Intact, Normal Color, Warm Assessment and Plan - Assessment and Plan (Free Text) Assessment: 53 yo male with a history of uncontrolled T2DM (s/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 Patient's blood cultures are positive for Staph aureus, currently being treated for bacteremia & discitis & spinal abscess. Plan: Epidural Abscess - MRI L-spine: suspicious for discitis osteomyelitis involving L4-5 intervetebral disc w/ anterior epidural abscess, R iliopsoas fluid collection 1.5x1.9cm - pt reports 3 month history, with radiation and urinary retention - Back pain - pt denies pain while laying in bed - per PT, patient refuses due to back pain - naproxen 550mg PO q12h PRN - percocet 5/325 X2 tabs daily 30 mins prior physical therapy - per PT, patient participated in activity much more than previous days - ancef 2000mg IV q8h (07/25) - F/u IR, Dr. Fragoso recs: - psoas collection and spinal abscess too small to drain - F/u NeuroSx, Dr. Olivia recs: - no intervention at this time - F/u ID, Dr. Garcia recs: - 6-8 weeks of abx of ancef 2000mg Q8H; started 07/25/18 - will need through 09/04/18 - F/u MRI lumbar spinal canal w/o contrast on 09/02 Anemia - likely of chronic disease - Hgb stable in 8s - patient remains asymptomatic - will continue to monitor L Maxillofacial Ulcer - CT 07/25: soft tissue swelling, no osteomyelitis or drainable fluid - Covered w/ ancef 2000mg IV q8h (07/25) for epidural abscess - Will be on 6-8 week course antibiotic treatment, as per ID for epidural abscess - mupirocin 2g top BID - wound care consulted - Pt following up with plastic surgeon at [facility] sep 04 - Patient has contact information DM type 2 - A1c 8.9 - medium dose Novolin R ISS - blood sugars in 180s - lantus 30u SC daily (increased from 25 to 30 on 08/13) - Hypoglycemia protocol - Accuchecks ACHS - despite persistent education of no sweet/sugar filled drinks, patient continues to have juices at bedside - Diabetic diet education referral HTN - patient initially HTN in 160s to 170s, no 130s to 150s - ASA 81 mg PO daily - Enalapril 30 mg PO daily - Metoprolol succinate 50 mg PO daily - Norvasc 10mg PO daily Urinary Retention Resolved - CT A/P: bladder wall thickening (cystitis), b/l renal parenchymal high density may be underlying metabolic disorder - I/Os - sagastume catheter (07/27) - flomax 0.4mg PO BID - finasteride 5mg PO daily - Urology consulted: Titi Kam - maintain sagastume until outpatient follow - Sagastume D/C'ed @ 10 AM on 08/13, patient has been urinating freely CAP Resolved - CXR 08/06: no active disease - CT A/P: LLL consolidation vs atelectasis - ancef 2000mg IV q8h (07/25) Staph Aureus Bacteremia: Resolved - Initially: Blood Cx positive for Staph aureus (07/21); F/u Blood Cx negative 07/28 X 5 days - Urine Cx: no growth - Procal 14.74, Tmax 100.8 (08/01) - Tylenol 650 mg PO Q6H PRN - Echo: LV normal size and EF. LA mildly dilated. Mild TR - F/u cardio, Dr. Ge recs: - consider KASH if BCx+ in future, signed off - F/u ID, Dr. Garcia recs: - 6-8 week course antibiotic treatment, as per ID - ancef 2000mg IV q8h (07/25), as per ID - likely source: spinal abscess Unresponsiveness Resolved AAOx3 Previously - Code stroke - EEG: nonspecific abnormalities, no seizures noted - CT head: no acute findings - CTA head and neck: no significant stenoses or abnormalities - PRL wnl (12.9) - Gabapentin 100 mg PO TID - Neurology consulted: Manda - no need for anticonvulsant at this time Dysuria Resolved - burning on urination since last night - UA - leuko esterase 2+, WBC 50, squamous 1+ - UC - yeast species > [id number] cfu/ml - fluconazole 100 mg PO daily - continue for 4 more days as patients symptoms are improving - bladder scan revealed < 200 ml urine 08/20 - Added pyridium 100 mg TIDPC for 2 days for symptom relief Ppx: DVT: Heparin 5000 units Q12H GI: Protonix 40 mg PO daily Labs: CBC/ CMP Q2D Mag/Phs Q4D Diabetic Diet Patient may shower PT/OT: f/u recs for d/c recs for 09/04; percocet 5/325 X2 tabs daily 30 mins prior physical therapy Dispo: pt without insurance and undocumented citizen, pending medicaid acceptance. Likely to stay for duration of antibiotic tx course. Discussed with health and social care teacher for wheelchair for patient upon discharge. F/u MRI on 09/02. <Mila Curiel - Last Filed: 08/30/18 19:42> Objective - Vital Signs/Intake and Output Vital Signs (last 24 hours): Temp Pulse Resp BP Pulse Ox 99.8 F H 87 20 143/74 98 08/30/18 16:00 08/30/18 16:00 08/30/18 16:00 08/30/18 16:00 08/30/18 16:00 Intake and Output: 08/30/18 08/31/18 18:59 06:59 Intake Total 250 Output Total 800 Balance -550 - Medications Medications: Current Medications Acetaminophen (Tylenol 325mg Tab) 650 mg PO Q6 PRN PRN Reason: Fever >100.4 or Pain Last Admin: 08/21/18 13:47 Dose: 650 mg Amlodipine Besylate (Norvasc) 10 mg PO DAILY [facility] Last Admin: 08/30/18 10:07 Dose: 10 mg Aspirin (Ecotrin) 81 mg PO DAILY [facility] Last Admin: 08/30/18 10:07 Dose: 81 mg Docusate Sodium (Colace) 100 mg PO TID [facility] Last Admin: 08/30/18 17:54 Dose: 100 mg Enalapril Maleate (Vasotec) 40 mg PO DAILY [facility] Last Admin: 08/30/18 10:09 Dose: 40 mg Famotidine (Pepcid) 20 mg PO DAILY [facility] Last Admin: 08/30/18 10:06 Dose: 20 mg Ferrous Sulfate (Feosol) 325 mg PO TID [facility] Last Admin: 08/30/18 17:55 Dose: 325 mg Finasteride (Proscar) 5 mg PO DAILY [facility] Last Admin: 08/30/18 10:08 Dose: 5 mg Gabapentin (Neurontin) 200 mg PO TID [facility] Last Admin: 08/30/18 17:55 Dose: 200 mg Heparin Sodium (Porcine) (Heparin) 5,000 units SC BID [facility] Last Admin: 08/30/18 17:55 Dose: 5,000 units Cefazolin Sodium 2,000 mg/ (Sodium Chloride) 50 mls @ 100 mls/hr IVPB Q8H [facility]; Protocol Last Admin: 08/30/18 10:12 Dose: 100 mls/hr Insulin Glargine (Lantus) 30 unit SC DAILY [facility] Last Admin: 08/30/18 10:03 Dose: 30 units Insulin Human Regular (Novolin R) 0 unit SC ACHS [facility]; Protocol Last Admin: 08/30/18 17:56 Dose: 4 units Lactobacillus Acidophilus (Bacid Acidophilus) 1 cap PO BID [facility] Last Admin: 08/30/18 17:54 Dose: 1 cap Lidocaine (Lidoderm) 1 ea TD DAILY [facility] Last Admin: 08/30/18 10:03 Dose: 1 ea Metoprolol Succinate (Toprol Xl) 50 mg PO DAILY [facility] Last Admin: 08/30/18 10:06 Dose: 50 mg Mupirocin (Bactroban Ointment) 0 gm TOP DAILY [facility] Last Admin: 08/30/18 10:14 Dose: 1 applic Naproxen (Anaprox) 275 mg PO BID PRN PRN Reason: Pain, moderate (4-7) Last Admin: 08/30/18 14:32 Dose: 275 mg Oxycodone/Acetaminophen (Percocet 5/325 Mg Tab) 1 tab PO DAILY PRN PRN Reason: Pain, moderate (4-7) Stop: 09/05/18 16:29 Polyethylene Glycol (Miralax) 17 gm PO HS PRN PRN Reason: Constipation Polyethylene Glycol (Miralax) 17 gm PO MWF [facility] Last Admin: 08/30/18 10:03 Dose: 17 gm Tamsulosin HCl (Flomax) 0.4 mg PO BID [facility] Last Admin: 08/30/18 17:55 Dose: 0.4 mg Vitamin A (Vitamin A & D Oint Ud Foilpak) 1 ea TOP BID [facility] Last Admin: 08/30/18 17:56 Dose: 1 ea - Labs Labs: 08/30/18 07:55 08/30/18 07:55 PT 15.6 SECONDS (9.7-12.2) H 07/21/18 20:28 INR 1.4 07/21/18 20:28 APTT 34 SECONDS (21-34) 07/21/18 20:28 Attending/Attestation - Attestation I have personally seen and examined this patient.: Yes I have fully participated in the care of the patient.: Yes I have reviewed all pertinent clinical information, including history, physical exam and plan: Yes
[2018-08-28 06:29] LABS: ALB/GLOB RATIO 0.7 (1.0-2.1); ALBUMIN 2.9 g/dL (3.5-5.0); ALT/SGPT 12 U/L (21-72); AST/SGOT 19 U/L (17-59); BLOOD UREA NITROGEN 25 mg/dL (9-20); CALCIUM 8.6 mg/dl (8.6-10.4); GFR NON-AFRICAN AMERICAN > 60
[2018-08-28 07:18] LABS: BASO % 0.5 % (0.0-2.0); EOS # 0.4 K/uL (0.0-0.7); LYMPH # 1.9 K/uL (1.0-4.3); LYMPH % 23.4 % (20.0-40.0); MEAN CELL VOLUME 86.1 fL (80.0-94.0); MEAN CORPUSCULAR HEMOGLOBIN 28.8 pg (27.0-31.0); MEAN CORPUSCULAR HGB CONC 33.4 g/dL (33.0-37.0); MEAN PLATELET VOLUME 9.1 fL (7.2-11.7); MONO # 0.6 K/uL (0.0-0.8); MONO % 7.5 % (0.0-10.0); NEUT # 5.2 K/uL (1.8-7.0); NEUT % 63.6 % (50.0-75.0); NRBC % 0.1 % (0.0-2.0); RBC 2.79 Mil/uL (4.40-5.90); RED CELL DISTRIBUTION WIDTH 15.3 % (11.5-14.5); WHITE BLOOD COUNT 8.2 K/uL (4.8-10.8)
[2018-08-28] MEDS: (Novolin R) Insulin Human Regular 100 units/ml vial SC SCH ×4 (08:19→22:31)
[2018-08-28] MEDS: Lactobacillus Acidophilus 500 MU Cap PO SCH ×2 (10:41→17:30)
[2018-08-28] MEDS: Metoprolol Succinate 50 mg XL Tab PO SCH (10:42)
[2018-08-28] MEDS: Oxycodone/Acetaminophen 5/325 mg Tab PO PRN (10:43)
[2018-08-28] MEDS: Lidocaine 5% Patch TD SCH (10:45)
[2018-08-28] MEDS: POLYETHYLENE GLYCOL 3350 17 GM/Dose PACKET PO SCH (10:45)
[2018-08-28] MEDS: (Lantus) Insulin Glargine, Recombinant SC SCH (10:47)
--- NOTE | 2018-08-29 07:27 | CP.PCM.PN ---
<GirmaJackeline - Last Filed: 08/29/18 17:32> Subjective - Date & Time of Evaluation Date of Evaluation: 08/29/18 Time of Evaluation: 09:20 - Subjective Subjective: Patient examined at bedside. No acute events overnight. Patient reports nasal bleeding from lesion. Reports back and left leg pain interfering with sleep. Denies chest pain, SOB, nausea, diarrhea Objective - Vital Signs/Intake and Output Vital Signs (last 24 hours): Temp Pulse Resp BP Pulse Ox 98.7 F 83 20 147/75 96 08/28/18 23:22 08/28/18 23:22 08/28/18 23:22 08/28/18 23:22 08/28/18 23:22 - Medications Medications: Current Medications Acetaminophen (Tylenol 325mg Tab) 650 mg PO Q6 PRN PRN Reason: Fever >100.4 or Pain Last Admin: 08/21/18 13:47 Dose: 650 mg Amlodipine Besylate (Norvasc) 10 mg PO DAILY [facility] Last Admin: 08/28/18 10:41 Dose: 10 mg Aspirin (Ecotrin) 81 mg PO DAILY [facility] Last Admin: 08/28/18 10:42 Dose: 81 mg Docusate Sodium (Colace) 100 mg PO TID [facility] Last Admin: 08/28/18 17:30 Dose: 100 mg Enalapril Maleate (Vasotec) 30 mg PO DAILY [facility] Last Admin: 08/28/18 10:42 Dose: 30 mg Famotidine (Pepcid) 20 mg PO DAILY [facility] Last Admin: 08/28/18 10:41 Dose: 20 mg Ferrous Sulfate (Feosol) 325 mg PO TID [facility] Last Admin: 08/28/18 18:00 Dose: 325 mg Finasteride (Proscar) 5 mg PO DAILY [facility] Last Admin: 08/28/18 14:14 Dose: 5 mg Gabapentin (Neurontin) 200 mg PO TID [facility] Last Admin: 08/28/18 17:30 Dose: 200 mg Heparin Sodium (Porcine) (Heparin) 5,000 units SC BID [facility] Last Admin: 08/28/18 17:32 Dose: 5,000 units Cefazolin Sodium 2,000 mg/ (Sodium Chloride) 50 mls @ 100 mls/hr IVPB Q8H [facility]; Protocol Last Admin: 08/29/18 03:18 Dose: 100 mls/hr Insulin Glargine (Lantus) 30 unit SC DAILY [facility] Last Admin: 08/28/18 10:47 Dose: 30 units Insulin Human Regular (Novolin R) 0 unit SC ACHS [facility]; Protocol Last Admin: 08/28/18 22:31 Dose: Not Given Lactobacillus Acidophilus (Bacid Acidophilus) 1 cap PO BID [facility] Last Admin: 08/28/18 17:30 Dose: 1 cap Lidocaine (Lidoderm) 1 ea TD DAILY [facility] Last Admin: 08/28/18 10:45 Dose: 1 ea Metoprolol Succinate (Toprol Xl) 50 mg PO DAILY [facility] Last Admin: 08/28/18 10:42 Dose: 50 mg Mupirocin (Bactroban Ointment) 0 gm TOP BID [facility] Last Admin: 08/28/18 17:33 Dose: Not Given Naproxen (Anaprox) 275 mg PO BID PRN PRN Reason: Pain, moderate (4-7) Last Admin: 08/27/18 10:51 Dose: 275 mg Oxycodone/Acetaminophen (Percocet 5/325 Mg Tab) 2 tab PO DAILY PRN PRN Reason: Pain, moderate (4-7) Stop: 08/30/18 13:16 Last Admin: 08/28/18 10:43 Dose: 2 tab Polyethylene Glycol (Miralax) 17 gm PO HS PRN PRN Reason: Constipation Polyethylene Glycol (Miralax) 17 gm PO MWF [facility] Last Admin: 08/28/18 10:45 Dose: 17 gm Tamsulosin HCl (Flomax) 0.4 mg PO BID [facility] Last Admin: 08/28/18 17:30 Dose: 0.4 mg - Labs Labs: 08/28/18 06:10 08/28/18 06:07 PT 15.6 SECONDS (9.7-12.2) H 07/21/18 20:28 INR 1.4 07/21/18 20:28 APTT 34 SECONDS (21-34) 07/21/18 20:28 - Constitutional Appears: Non-toxic, No Acute Distress - Head Exam Head Exam: ATRAUMATIC, NORMAL INSPECTION, NORMOCEPHALIC - Eye Exam Eye Exam: EOMI, Normal appearance - ENT Exam ENT Exam: Mucous Membranes Moist, Normal Exam Additional comments: Nose bandaged with blood on gauze - Neck Exam Neck Exam: Normal Inspection - Respiratory Exam Respiratory Exam: Clear to Ausculation Bilateral, NORMAL BREATHING PATTERN - Cardiovascular Exam Cardiovascular Exam: REGULAR RHYTHM, +S1, +S2 - GI/Abdominal Exam GI & Abdominal Exam: Soft, Normal Bowel Sounds. absent: Distended - Extremities Exam Additional comments: bilateral BKA - Neurological Exam Neurological Exam: Alert, Awake, Oriented x3 - Psychiatric Exam Psychiatric exam: Normal Affect, Normal Mood - Skin Skin Exam: Dry, Intact, Normal Color, Warm Assessment and Plan - Assessment and Plan (Free Text) Assessment: 53 yo male with a history of uncontrolled T2DM (s/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 Patient's blood cultures are positive for Staph aureus, currently being treated for bacteremia & discitis & spinal abscess. Plan: Epidural Abscess - MRI L-spine: suspicious for discitis osteomyelitis involving L4-5 interv etebral disc w/ anterior epidural abscess, R iliopsoas fluid collection 1.5x1.9cm - pt reports 3 month history, with radiation and urinary retention - Back pain - pt denies pain while laying in bed - per PT, patient refuses due to back pain - naproxen 550mg PO q12h PRN - percocet 5/325 X2 tabs daily 30 mins prior physical therapy - per PT, patient participated in activity much more than previous days - ancef 2000mg IV q8h (07/25) - F/u IR, Dr. Fragoso recs: - psoas collection and spinal abscess too small to drain - F/u NeuroSx, Dr. Olivia recs: - no intervention at this time - F/u ID, Dr. Garcia recs: - 6-8 weeks of abx of ancef 2000mg Q8H; started 07/25/18 - will need through 09/04/18 - F/u MRI lumbar spinal canal w/o contrast on 09/02 Anemia - likely of chronic disease - Hgb stable in 8s - patient remains asymptomatic - will continue to monitor L Maxillofacial Ulcer - CT 07/25: soft tissue swelling, no osteomyelitis or drainable fluid - Covered w/ ancef 2000mg IV q8h (07/25) for epidural abscess - Will be on 6-8 week course antibiotic treatment, as per ID for epidural abscess - mupirocin 2g top BID - wound care consulted - Pt following up with plastic surgeon at [facility] sep 04 - Patient has contact information DM type 2 - A1c 8.9 - medium dose Novolin R ISS - blood sugars in 180s - lantus 30u SC daily (increased from 25 to 30 on 08/13) - Hypoglycemia protocol - Accuchecks ACHS - despite persistent education of no sweet/sugar filled drinks, patient continues to have juices at bedside - Diabetic diet education referral HTN - patient initially HTN in 160s to 170s, no 130s to 150s - ASA 81 mg PO daily - Enalapril 30 mg PO daily - Metoprolol succinate 50 mg PO daily - Norvasc 10mg PO daily Urinary Retention Resolved - CT A/P: bladder wall thickening (cystitis), b/l renal parenchymal high density may be underlying metabolic disorder - I/Os - sagastume catheter (07/27) - flomax 0.4mg PO BID - finasteride 5mg PO daily - Urology consulted: Titi Kam - maintain sagastume until outpatient follow - Sagastume D/C'ed @ 10 AM on 08/13, patient has been urinating freely CAP Resolved - CXR 08/06: no active disease - CT A/P: LLL consolidation vs atelectasis - ancef 2000mg IV q8h (07/25) Staph Aureus Bacteremia: Resolved - Initially: Blood Cx positive for Staph aureus (07/21); F/u Blood Cx negative 07/28 X 5 days - Urine Cx: no growth - Procal 14.74, Tmax 100.8 (08/01) - Tylenol 650 mg PO Q6H PRN - Echo: LV normal size and EF. LA mildly dilated. Mild TR - F/u cardio, Dr. Ge recs: - consider KASH if BCx+ in future, signed off - F/u ID, Dr. Garcia recs: - 6-8 week course antibiotic treatment, as per ID - ancef 2000mg IV q8h (07/25), as per ID - likely source: spinal abscess Unresponsiveness Resolved AAOx3 Previously - Code stroke - EEG: nonspecific abnormalities, no seizures noted - CT head: no acute findings - CTA head and neck: no significant stenoses or abnormalities - PRL wnl (12.9) - Gabapentin 100 mg PO TID - Neurology consulted: Korya - no need for anticonvulsant at this time Dysuria Resolved - burning on urination since last night - UA - leuko esterase 2+, WBC 50, squamous 1+ - UC - yeast species > 620446 cfu/ml - fluconazole 100 mg PO daily - continue for 4 more days as patients symptoms are improving - bladder scan revealed < 200 ml urine 08/20 - Added pyridium 100 mg TIDPC for 2 days for symptom relief Ppx: DVT: Heparin 5000 units Q12H GI: Protonix 40 mg PO daily Labs: CBC/ CMP Q2D Mag/Phs Q4D Diabetic Diet Patient may shower PT/OT: f/u recs for d/c recs for 09/04; percocet 5/325 X2 tabs daily 30 mins prior physical therapy Dispo: pt without insurance and undocumented citizen, pending medicaid acceptance. Likely to stay for duration of antibiotic tx course. Discussed with social media coordinator for wheelchair for patient upon discharge. F/u MRI on 09/02. <Mila Curiel - Last Filed: 08/30/18 18:29> Objective - Vital Signs/Intake and Output Vital Signs (last 24 hours): Temp Pulse Resp BP Pulse Ox 99.8 F H 87 20 143/74 98 08/30/18 16:00 08/30/18 16:00 08/30/18 16:00 08/30/18 16:00 08/30/18 16:00 Intake and Output: 08/30/18 08/30/18 06:59 18:59 Intake Total 250 Output Total 800 Balance -550 - Medications Medications: Current Medications Acetaminophen (Tylenol 325mg Tab) 650 mg PO Q6 PRN PRN Reason: Fever >100.4 or Pain Last Admin: 08/21/18 13:47 Dose: 650 mg Amlodipine Besylate (Norvasc) 10 mg PO DAILY [facility] Last Admin: 08/30/18 10:07 Dose: 10 mg Aspirin (Ecotrin) 81 mg PO DAILY [facility] Last Admin: 08/30/18 10:07 Dose: 81 mg Docusate Sodium (Colace) 100 mg PO TID [facility] Last Admin: 08/30/18 17:54 Dose: 100 mg Enalapril Maleate (Vasotec) 40 mg PO DAILY [facility] Last Admin: 12/07/18 10:09 Dose: 40 mg Famotidine (Pepcid) 20 mg PO DAILY [facility] Last Admin: 08/30/18 10:06 Dose: 20 mg Ferrous Sulfate (Feosol) 325 mg PO TID [facility] Last Admin: 08/30/18 17:55 Dose: 325 mg Finasteride (Proscar) 5 mg PO DAILY [facility] Last Admin: 08/30/18 10:08 Dose: 5 mg Gabapentin (Neurontin) 200 mg PO TID [facility] Last Admin: 08/30/18 17:55 Dose: 200 mg Heparin Sodium (Porcine) (Heparin) 5,000 units SC BID [facility] Last Admin: 08/30/18 17:55 Dose: 5,000 units Cefazolin Sodium 2,000 mg/ (Sodium Chloride) 50 mls @ 100 mls/hr IVPB Q8H [facility]; Protocol Last Admin: 08/30/18 10:12 Dose: 100 mls/hr Insulin Glargine (Lantus) 30 unit SC DAILY [facility] Last Admin: 08/30/18 10:03 Dose: 30 units Insulin Human Regular (Novolin R) 0 unit SC ACHS [facility]; Protocol Last Admin: 08/30/18 17:56 Dose: 4 units Lactobacillus Acidophilus (Bacid Acidophilus) 1 cap PO BID [facility] Last Admin: 08/30/18 17:54 Dose: 1 cap Lidocaine (Lidoderm) 1 ea TD DAILY [facility] Last Admin: 08/30/18 10:03 Dose: 1 ea Metoprolol Succinate (Toprol Xl) 50 mg PO DAILY [facility] Last Admin: 08/30/18 10:06 Dose: 50 mg Mupirocin (Bactroban Ointment) 0 gm TOP DAILY [facility] Last Admin: 08/30/18 10:14 Dose: 1 applic Naproxen (Anaprox) 275 mg PO BID PRN PRN Reason: Pain, moderate (4-7) Last Admin: 08/30/18 14:32 Dose: 275 mg Oxycodone/Acetaminophen (Percocet 5/325 Mg Tab) 1 tab PO DAILY PRN PRN Reason: Pain, moderate (4-7) Stop: 09/05/18 16:29 Polyethylene Glycol (Miralax) 17 gm PO HS PRN PRN Reason: Constipation Polyethylene Glycol (Miralax) 17 gm PO MWF [facility] Last Admin: 08/30/18 10:03 Dose: 17 gm Tamsulosin HCl (Flomax) 0.4 mg PO BID [facility] Last Admin: 08/30/18 17:55 Dose: 0.4 mg Vitamin A (Vitamin A & D Oint Ud Foilpak) 1 ea TOP BID [facility] Last Admin: 08/30/18 17:56 Dose: 1 ea - Labs Labs: 08/30/18 07:55 08/30/18 07:55 PT 15.6 SECONDS (9.7-12.2) H 07/21/18 20:28 INR 1.4 07/21/18 20:28 APTT 34 SECONDS (21-34) 07/21/18 20:28 Attending/Attestation - Attestation I have personally seen and examined this patient.: Yes I have fully participated in the care of the patient.: Yes I have reviewed all pertinent clinical information, including history, physical exam and plan: Yes
[2018-08-29] MEDS: (Novolin R) Insulin Human Regular 100 units/ml vial SC SCH ×5 (08:05→21:40)
[2018-08-29] MEDS: Lactobacillus Acidophilus 500 MU Cap PO SCH ×2 (09:48→17:36)
[2018-08-29] MEDS: Oxycodone/Acetaminophen 5/325 mg Tab PO PRN (09:49)
[2018-08-29] MEDS: Lidocaine 5% Patch TD SCH (09:55)
[2018-08-29] MEDS: (Lantus) Insulin Glargine, Recombinant SC SCH (10:03)
[2018-08-29] MEDS: Metoprolol Succinate 50 mg XL Tab PO SCH (10:08)
[2018-08-29] MEDS: Vitamins A & D Oint UD Foilpak TOP SCH (17:35)
--- NOTE | 2018-08-30 07:06 | CP.PCM.PN ---
<NataliyaNaraRodriguez M - Last Filed: 08/30/18 15:24> Subjective - Date & Time of Evaluation Date of Evaluation: 08/30/18 Time of Evaluation: 07:05 - Subjective Subjective: PGY 1 Medicine Progress Note for Hospitalist Dr. Curiel Pt seen and examined at bedside. No overnight events reported. Pt lying bed comfortably, no acute distress. Pt states he feels fine, with the pain in his back improving. Pt states he is participating in PT activities. Pt offers no further complaints, denies chest pain, SOB, nausea, vomiting, abdominal pain. Pt informed he will have MRI next week and possible discharge next Sunday, which he understood and agreed. Objective - Vital Signs/Intake and Output Vital Signs (last 24 hours): Temp Pulse Resp BP Pulse Ox 98.5 F 81 20 134/72 97 08/29/18 23:58 08/29/18 23:58 08/29/18 23:58 08/29/18 23:58 08/29/18 23:58 - Medications Medications: Current Medications Acetaminophen (Tylenol 325mg Tab) 650 mg PO Q6 PRN PRN Reason: Fever >100.4 or Pain Last Admin: 08/21/18 13:47 Dose: 650 mg Amlodipine Besylate (Norvasc) 10 mg PO DAILY [facility] Last Admin: 08/29/18 09:48 Dose: 10 mg Aspirin (Ecotrin) 81 mg PO DAILY [facility] Last Admin: 08/29/18 09:48 Dose: 81 mg Docusate Sodium (Colace) 100 mg PO TID [facility] Last Admin: 08/29/18 17:36 Dose: 100 mg Enalapril Maleate (Vasotec) 40 mg PO DAILY [facility] Famotidine (Pepcid) 20 mg PO DAILY [facility] Last Admin: 08/29/18 09:48 Dose: 20 mg Ferrous Sulfate (Feosol) 325 mg PO TID [facility] Last Admin: 08/29/18 17:35 Dose: 325 mg Finasteride (Proscar) 5 mg PO DAILY [facility] Last Admin: 08/29/18 10:55 Dose: 5 mg Gabapentin (Neurontin) 200 mg PO TID [facility] Last Admin: 08/29/18 17:35 Dose: 200 mg Heparin Sodium (Porcine) (Heparin) 5,000 units SC BID [facility] Last Admin: 12/06/18 17:35 Dose: 5,000 units Cefazolin Sodium 2,000 mg/ (Sodium Chloride) 50 mls @ 100 mls/hr IVPB Q8H [facility]; Protocol Last Admin: 08/30/18 02:59 Dose: 100 mls/hr Insulin Glargine (Lantus) 30 unit SC DAILY [facility] Last Admin: 08/29/18 10:03 Dose: 30 units Insulin Human Regular (Novolin R) 0 unit SC ACHS [facility]; Protocol Last Admin: 08/29/18 21:40 Dose: Not Given Lactobacillus Acidophilus (Bacid Acidophilus) 1 cap PO BID [facility] Last Admin: 08/29/18 17:36 Dose: 1 cap Lidocaine (Lidoderm) 1 ea TD DAILY [facility] Last Admin: 08/29/18 09:55 Dose: 1 ea Metoprolol Succinate (Toprol Xl) 50 mg PO DAILY [facility] Last Admin: 08/29/18 10:08 Dose: 50 mg Mupirocin (Bactroban Ointment) 0 gm TOP DAILY [facility] Naproxen (Anaprox) 275 mg PO BID PRN PRN Reason: Pain, moderate (4-7) Last Admin: 08/27/18 10:51 Dose: 275 mg Oxycodone/Acetaminophen (Percocet 5/325 Mg Tab) 2 tab PO DAILY PRN PRN Reason: Pain, moderate (4-7) Stop: 08/30/18 13:16 Last Admin: 08/29/18 09:49 Dose: 2 tab Polyethylene Glycol (Miralax) 17 gm PO HS PRN PRN Reason: Constipation Polyethylene Glycol (Miralax) 17 gm PO MWF [facility] Last Admin: 08/28/18 10:45 Dose: 17 gm Tamsulosin HCl (Flomax) 0.4 mg PO BID [facility] Last Admin: 08/29/18 17:35 Dose: 0.4 mg Vitamin A (Vitamin A & D Oint Ud Foilpak) 1 ea TOP BID [facility] Last Admin: 08/29/18 17:35 Dose: 1 ea - Labs Labs: 08/28/18 06:10 08/28/18 06:07 PT 15.6 SECONDS (9.7-12.2) H 07/21/18 20:28 INR 1.4 07/21/18 20:28 APTT 34 SECONDS (21-34) 07/21/18 20:28 - Constitutional Appears: Non-toxic, No Acute Distress - Eye Exam Eye Exam: Normal appearance - ENT Exam ENT Exam: Mucous Membranes Moist Additional comments: ulcerative lesion on the L nare and L malar region, erythema with slight granulation tissue. no drainage noted. cartilage visible. - Respiratory Exam Respiratory Exam: Clear to Ausculation Bilateral, NORMAL BREATHING PATTERN. absent: Rales, Rhonchi, Wheezes - Cardiovascular Exam Cardiovascular Exam: +S1, +S2 - GI/Abdominal Exam GI & Abdominal Exam: Soft, Normal Bowel Sounds. absent: Firm, Guarding, Rigid - Extremities Exam Extremities Exam: absent: Pedal Edema Additional comments: Bilateral BKA, full ROM - Back Exam Back Exam: absent: CVA tenderness (L), CVA tenderness (R) Additional comments: L > R tenderness lumbar region No Sacral ulcers - Neurological Exam Neurological Exam: Alert, Awake, Oriented x3 - Psychiatric Exam Psychiatric exam: Normal Affect, Normal Mood - Skin Skin Exam: Dry, Intact, Normal Color, Warm Assessment and Plan - Assessment and Plan (Free Text) Assessment: 53 yo male with a history of uncontrolled T2DM (s/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 Patient's blood cultures are positive for Staph aureus, currently being treated for bacteremia & discitis & spinal abscess Plan: Epidural Abscess - MRI L-spine: suspicious for discitis osteomyelitis involving L4-5 intervete bral disc w/ anterior epidural abscess, R iliopsoas fluid collection 1.5x1.9cm - pt reports 3 month history, with radiation and urinary retention - Back pain - pt denies pain while laying in bed - per PT, patient refuses due to back pain - naproxen 550mg PO q12h PRN - percocet 5/325 X2 tabs daily 30 mins prior physical therapy - per PT, patient participated in activity much more than previous days - ancef 2000mg IV q8h (07/25) - F/u IR, Dr. Fragoso recs: - psoas collection and spinal abscess too small to drain - F/u NeuroSx, Dr. Olivia recs: - no intervention at this time - F/u ID, Dr. Garcia recs: - 6-8 weeks of abx of ancef 2000mg Q8H; started 07/25/18 - will need through 09/04/18 - F/u MRI lumbar spinal canal w/o contrast on 09/02 Anemia - likely of chronic disease - Hgb stable in 8s - patient remains asymptomatic - will continue to monitor L Maxillofacial Ulcer - CT 07/25: soft tissue swelling, no osteomyelitis or drainable fluid - Covered w/ ancef 2000mg IV q8h (07/25) for epidural abscess - Will be on 6-8 week course antibiotic treatment, as per ID for epidural abscess - mupirocin 2g top BID - wound care consulted - Pt following up with plastic surgeon at [facility] sep 04 - Patient has contact information DM type 2 - A1c 8.9 - medium dose Novolin R ISS - blood sugars in 180s - lantus 30u SC daily (increased from 25 to 30 on 08/13) - Hypoglycemia protocol - Accuchecks ACHS - despite persistent education of no sweet/sugar filled drinks, patient continues to have juices at bedside - Diabetic diet education referral HTN - patient initially HTN in 160s to 170s, no 130s to 150s - ASA 81 mg PO daily - Enalapril 30 mg PO daily - Metoprolol succinate 50 mg PO daily - Norvasc 10mg PO daily Urinary Retention Resolved - CT A/P: bladder wall thickening (cystitis), b/l renal parenchymal high density may be underlying metabolic disorder - I/Os - sagastume catheter (07/27) - flomax 0.4mg PO BID - finasteride 5mg PO daily - Urology consulted: Titi Kam - maintain sagastume until outpatient follow - Sagastume D/C'ed @ 10 AM on 08/13, patient has been urinating freely CAP Resolved - CXR 08/06: no active disease - CT A/P: LLL consolidation vs atelectasis - ancef 2000mg IV q8h (07/25) Staph Aureus Bacteremia: Resolved - Initially: Blood Cx positive for Staph aureus (07/21); F/u Blood Cx negative 07/28 X 5 days - Urine Cx: no growth - Procal 14.74, Tmax 100.8 (08/01) - Tylenol 650 mg PO Q6H PRN - Echo: LV normal size and EF. LA mildly dilated. Mild TR - F/u cardio, Dr. Ge recs: - consider KASH if BCx+ in future, signed off - F/u ID, Dr. Garcia recs: - 6-8 week course antibiotic treatment, as per ID - ancef 2000mg IV q8h (07/25), as per ID - likely source: spinal abscess Unresponsiveness Resolved AAOx3 Previously - Code stroke - EEG: nonspecific abnormalities, no seizures noted - CT head: no acute findings - CTA head and neck: no significant stenoses or abnormalities - PRL wnl (12.9) - Gabapentin 100 mg PO TID - Neurology consulted: Manad - no need for anticonvulsant at this time Dysuria Resolved - burning on urination since last night - UA - leuko esterase 2+, WBC 50, squamous 1+ - UC - yeast species > 349620 cfu/ml - fluconazole 100 mg PO daily - continue for 4 more days as patients symptoms are improving - bladder scan revealed < 200 ml urine 08/20 - Added pyridium 100 mg TIDPC for 2 days for symptom relief Ppx: DVT: Heparin 5000 units Q12H GI: Protonix 40 mg PO daily Labs: CBC/ CMP Q2D Mag/Phs Q4D Diabetic Diet Patient may shower PT/OT: f/u recs for d/c recs for 09/04; percocet 5/325 X2 tabs daily 30 mins prior physical therapy Dispo: pt without insurance and undocumented citizen, pending medicaid acceptance. Likely to stay for duration of antibiotic tx course. Discussed with social work faculty member for wheelchair for patient upon discharge. F/u MRI on 09/02. Informed patient he will possibly be a discharge next Sunday and to discuss it with his . <Mila Curiel - Last Filed: 08/30/18 18:24> Objective - Vital Signs/Intake and Output Vital Signs (last 24 hours): Temp Pulse Resp BP Pulse Ox 99.8 F H 87 20 143/74 98 08/30/18 16:00 08/30/18 16:00 08/30/18 16:00 08/30/18 16:00 08/30/18 16:00 Intake and Output: 08/30/18 08/30/18 06:59 18:59 Intake Total 250 Output Total 800 Balance -550 - Medications Medications: Current Medications Acetaminophen (Tylenol 325mg Tab) 650 mg PO Q6 PRN PRN Reason: Fever >100.4 or Pain Last Admin: 08/21/18 13:47 Dose: 650 mg Amlodipine Besylate (Norvasc) 10 mg PO DAILY [facility] Last Admin: 08/30/18 10:07 Dose: 10 mg Aspirin (Ecotrin) 81 mg PO DAILY [facility] Last Admin: 08/30/18 10:07 Dose: 81 mg Docusate Sodium (Colace) 100 mg PO TID [facility] Last Admin: 08/30/18 17:54 Dose: 100 mg Enalapril Maleate (Vasotec) 40 mg PO DAILY [facility] Last Admin: 08/30/18 10:09 Dose: 40 mg Famotidine (Pepcid) 20 mg PO DAILY [facility] Last Admin: 08/30/18 10:06 Dose: 20 mg Ferrous Sulfate (Feosol) 325 mg PO TID [facility] Last Admin: 08/30/18 17:55 Dose: 325 mg Finasteride (Proscar) 5 mg PO DAILY [facility] Last Admin: 08/30/18 10:08 Dose: 5 mg Gabapentin (Neurontin) 200 mg PO TID [facility] Last Admin: 08/30/18 17:55 Dose: 200 mg Heparin Sodium (Porcine) (Heparin) 5,000 units SC BID [facility] Last Admin: 08/30/18 17:55 Dose: 5,000 units Cefazolin Sodium 2,000 mg/ (Sodium Chloride) 50 mls @ 100 mls/hr IVPB Q8H [facility]; Protocol Last Admin: 08/30/18 10:12 Dose: 100 mls/hr Insulin Glargine (Lantus) 30 unit SC DAILY [facility] Last Admin: 08/30/18 10:03 Dose: 30 units Insulin Human Regular (Novolin R) 0 unit SC ACHS [facility]; Protocol Last Admin: 08/30/18 17:56 Dose: 4 units Lactobacillus Acidophilus (Bacid Acidophilus) 1 cap PO BID [facility] Last Admin: 08/30/18 17:54 Dose: 1 cap Lidocaine (Lidoderm) 1 ea TD DAILY [facility] Last Admin: 08/30/18 10:03 Dose: 1 ea Metoprolol Succinate (Toprol Xl) 50 mg PO DAILY [facility] Last Admin: 08/30/18 10:06 Dose: 50 mg Mupirocin (Bactroban Ointment) 0 gm TOP DAILY [facility] Last Admin: 08/30/18 10:14 Dose: 1 applic Naproxen (Anaprox) 275 mg PO BID PRN PRN Reason: Pain, moderate (4-7) Last Admin: 08/30/18 14:32 Dose: 275 mg Oxycodone/Acetaminophen (Percocet 5/325 Mg Tab) 1 tab PO DAILY PRN PRN Reason: Pain, moderate (4-7) Stop: 09/05/18 16:29 Polyethylene Glycol (Miralax) 17 gm PO HS PRN PRN Reason: Constipation Polyethylene Glycol (Miralax) 17 gm PO MWF [facility] Last Admin: 08/30/18 10:03 Dose: 17 gm Tamsulosin HCl (Flomax) 0.4 mg PO BID [facility] Last Admin: 08/30/18 17:55 Dose: 0.4 mg Vitamin A (Vitamin A & D Oint Ud Foilpak) 1 ea TOP BID [facility] Last Admin: 08/30/18 17:56 Dose: 1 ea - Labs Labs: 08/30/18 07:55 08/30/18 07:55 PT 15.6 SECONDS (9.7-12.2) H 07/21/18 20:28 INR 1.4 07/21/18 20:28 APTT 34 SECONDS (21-34) 07/21/18 20:28 Attending/Attestation - Attestation I have personally seen and examined this patient.: Yes I have fully participated in the care of the patient.: Yes I have reviewed all pertinent clinical information, including history, physical exam and plan: Yes Notes (Text): Patient has no complain,continue antibiotics as per Dr Garcia Will be finishing antibiotics next week d/w patient's at bed side about possible discharge MRI Next week
[2018-08-30] MEDS: (Novolin R) Insulin Human Regular 100 units/ml vial SC SCH ×4 (07:54→21:48)
[2018-08-30 08:08] LABS: BASO # 0.1 K/uL (0.0-0.2); BASO % 0.7 % (0.0-2.0); EOS # 0.3 K/uL (0.0-0.7); EOS % 3.8 % (0.0-4.0); LYMPH # 1.6 K/uL (1.0-4.3); LYMPH % 18.8 % (20.0-40.0); MEAN CORPUSCULAR HEMOGLOBIN 29.7 pg (27.0-31.0); MEAN CORPUSCULAR HGB CONC 34.5 g/dL (33.0-37.0); MEAN PLATELET VOLUME 9.1 fL (7.2-11.7); MONO # 0.6 K/uL (0.0-0.8); MONO % 6.9 % (0.0-10.0); NEUT % 69.8 % (50.0-75.0); NRBC % 0.1 % (0.0-2.0); RBC 2.69 Mil/uL (4.40-5.90); RED CELL DISTRIBUTION WIDTH 14.9 % (11.5-14.5); WHITE BLOOD COUNT 8.6 K/uL (4.8-10.8)
[2018-08-30 08:21] LABS: ALB/GLOB RATIO 0.7 (1.0-2.1); ALBUMIN 2.9 g/dL (3.5-5.0); ALT/SGPT 9 U/L (21-72); AST/SGOT 17 U/L (17-59); BLOOD UREA NITROGEN 24 mg/dL (9-20); CALCIUM 8.5 mg/dl (8.6-10.4); GFR NON-AFRICAN AMERICAN > 60
[2018-08-30] MEDS: (Lantus) Insulin Glargine, Recombinant SC SCH (10:03)
[2018-08-30] MEDS: POLYETHYLENE GLYCOL 3350 17 GM/Dose PACKET PO SCH (10:03)
[2018-08-30] MEDS: Lidocaine 5% Patch TD SCH (10:03)
[2018-08-30] MEDS: Lactobacillus Acidophilus 500 MU Cap PO SCH ×2 (10:04→17:54)
[2018-08-30] MEDS: Metoprolol Succinate 50 mg XL Tab PO SCH (10:06)
[2018-08-30] MEDS: Vitamins A & D Oint UD Foilpak TOP SCH ×2 (10:15→17:56)
[2018-08-30] MEDS: Naproxen 275 mg Tab PO PRN (14:32)
[2018-08-30] MEDS ORDERED: Oxycodone/Acetaminophen 5/325 mg Tab PO PRN (16:28)
[2018-08-31] MEDS: (Novolin R) Insulin Human Regular 100 units/ml vial SC SCH ×4 (08:01→22:10)
--- NOTE | 2018-08-31 08:19 | CP.PCM.PN ---
<Rodriguez An M - Last Filed: 08/31/18 17:42> Subjective - Date & Time of Evaluation Date of Evaluation: 08/31/18 Time of Evaluation: 07:30 - Subjective Subjective: PGY 1 Medicine Progress note for Hospitalist Dr. Cuirel. Patient seen and examined at bedside. No overnight events reported. Patient lying in bed, no acute distress. pt reports his back pain feels much better than previous weeks. Pt offers no other complaints. Patient denies chest pain, SOB, nausea, vomiting, fevers, chills, dysuria, hematuria. Objective - Vital Signs/Intake and Output Vital Signs (last 24 hours): Temp Pulse Resp BP Pulse Ox 97.4 F L 77 20 174/81 H 99 08/31/18 08:00 08/31/18 08:00 08/31/18 08:00 08/31/18 08:00 08/31/18 08:00 Intake and Output: 08/31/18 08/31/18 06:59 18:59 Intake Total 250 Output Total 700 Balance -450 - Medications Medications: Current Medications Acetaminophen (Tylenol 325mg Tab) 650 mg PO Q6 PRN PRN Reason: Fever >100.4 or Pain Last Admin: 08/21/18 13:47 Dose: 650 mg Amlodipine Besylate (Norvasc) 10 mg PO DAILY [facility] Last Admin: 08/30/18 10:07 Dose: 10 mg Aspirin (Ecotrin) 81 mg PO DAILY [facility] Last Admin: 08/30/18 10:07 Dose: 81 mg Docusate Sodium (Colace) 100 mg PO TID [facility] Last Admin: 08/30/18 17:54 Dose: 100 mg Enalapril Maleate (Vasotec) 40 mg PO DAILY [facility] Last Admin: 08/30/18 10:09 Dose: 40 mg Famotidine (Pepcid) 20 mg PO DAILY [facility] Last Admin: 08/30/18 10:06 Dose: 20 mg Ferrous Sulfate (Feosol) 325 mg PO TID [facility] Last Admin: 08/30/18 17:55 Dose: 325 mg Finasteride (Proscar) 5 mg PO DAILY [facility] Last Admin: 08/30/18 10:08 Dose: 5 mg Gabapentin (Neurontin) 200 mg PO TID [facility] Last Admin: 08/30/18 17:55 Dose: 200 mg Heparin Sodium (Porcine) (Heparin) 5,000 units SC BID [facility] Last Admin: 08/30/18 17:55 Dose: 5,000 units Cefazolin Sodium 2,000 mg/ (Sodium Chloride) 50 mls @ 100 mls/hr IVPB Q8H [facility]; Protocol Last Admin: 08/31/18 04:32 Dose: 100 mls/hr Insulin Glargine (Lantus) 30 unit SC DAILY [facility] Last Admin: 08/30/18 10:03 Dose: 30 units Insulin Human Regular (Novolin R) 0 unit SC ACHS [facility]; Protocol Last Admin: 08/31/18 08:01 Dose: Not Given Lactobacillus Acidophilus (Bacid Acidophilus) 1 cap PO BID [facility] Last Admin: 08/30/18 17:54 Dose: 1 cap Lidocaine (Lidoderm) 1 ea TD DAILY [facility] Last Admin: 08/30/18 10:03 Dose: 1 ea Metoprolol Succinate (Toprol Xl) 50 mg PO DAILY [facility] Last Admin: 08/30/18 10:06 Dose: 50 mg Mupirocin (Bactroban Ointment) 0 gm TOP DAILY [facility] Last Admin: 08/30/18 10:14 Dose: 1 applic Naproxen (Anaprox) 275 mg PO BID PRN PRN Reason: Pain, moderate (4-7) Last Admin: 08/30/18 14:32 Dose: 275 mg Oxycodone/Acetaminophen (Percocet 5/325 Mg Tab) 1 tab PO DAILY PRN PRN Reason: Pain, moderate (4-7) Stop: 09/05/18 16:29 Polyethylene Glycol (Miralax) 17 gm PO HS PRN PRN Reason: Constipation Polyethylene Glycol (Miralax) 17 gm PO MWF [facility] Last Admin: 08/30/18 10:03 Dose: 17 gm Tamsulosin HCl (Flomax) 0.4 mg PO BID [facility] Last Admin: 08/30/18 17:55 Dose: 0.4 mg Vitamin A (Vitamin A & D Oint Ud Foilpak) 1 ea TOP BID [facility] Last Admin: 08/30/18 17:56 Dose: 1 ea - Labs Labs: 08/30/18 07:55 08/30/18 07:55 PT 15.6 SECONDS (9.7-12.2) H 07/21/18 20:28 INR 1.4 07/21/18 20:28 APTT 34 SECONDS (21-34) 07/21/18 20:28 - Constitutional Appears: Non-toxic, No Acute Distress - Head Exam Head Exam: NORMAL INSPECTION - Eye Exam Eye Exam: Normal appearance - ENT Exam ENT Exam: Mucous Membranes Moist Additional comments: ulcerative lesion on the L nare and L malar region, erythema with slight granulation tissue. no drainage noted. cartilage visible. - Neck Exam Neck Exam: Full ROM. absent: Tenderness - Respiratory Exam Respiratory Exam: Clear to Ausculation Bilateral, NORMAL BREATHING PATTERN. absent: Rhonchi, Wheezes, Stridor - Cardiovascular Exam Cardiovascular Exam: +S1, +S2 - GI/Abdominal Exam GI & Abdominal Exam: Soft, Normal Bowel Sounds - Extremities Exam Additional comments: Bilateral BKA, full ROM - Back Exam Back Exam: absent: CVA tenderness (L), CVA tenderness (R) Additional comments: L > R tenderness lumbar region No Sacral ulcers - Neurological Exam Neurological Exam: Alert, Awake, Oriented x3 Assessment and Plan - Assessment and Plan (Free Text) Assessment: 53 yo male with a history of uncontrolled T2DM (s/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 Patient's blood cultures are positive for Staph aureus, currently being treated for bacteremia & discitis & spinal abscess Plan: Epidural Abscess - MRI L-spine: suspicious for discitis osteomyelitis involving L4-5 intervetebral disc w/ anterior epidural abscess, R iliopsoas fluid collection 1.5x1.9cm - pt reports 3 month history, with radiation and urinary retention - Back pain - pt denies pain while laying in bed - per PT, patient refuses due to back pain - naproxen 550mg PO q12h PRN - percocet 5/325 X2 tabs daily 30 mins prior physical therapy - per PT, patient participated in activity much more than previous days - ancef 2000mg IV q8h (07/25) - F/u IR, Dr. Fragoso recs: - psoas collection and spinal abscess too small to drain - F/u NeuroSx, Dr. Olivia recs: - no intervention at this time - F/u ID, Dr. Garcia recs: - 6-8 weeks of abx of ancef 2000mg Q8H; started 07/25/18 - will need through 09/04/18 - F/u MRI lumbar spinal canal w/o contrast on 09/02 Anemia - likely of chronic disease - Hgb stable in 8s - patient remains asymptomatic - will continue to monitor L Maxillofacial Ulcer - CT 07/25: soft tissue swelling, no osteomyelitis or drainable fluid - Covered w/ ancef 2000mg IV q8h (07/25) for epidural abscess - Will be on 6-8 week course antibiotic treatment, as per ID for epidural a bscess - mupirocin 2g top BID - wound care consulted - Pt following up with plastic surgeon at [facility] sep 04 - Patient has contact information DM type 2 - A1c 8.9 - medium dose Novolin R ISS - blood sugars in 180s - lantus 30u SC daily (increased from 25 to 30 on 08/13) - Hypoglycemia protocol - Accuchecks ACHS - despite persistent education of no sweet/sugar filled drinks, patient continues to have juices at bedside - Diabetic diet education referral HTN - patient initially HTN in 160s to 170s, no 130s to 150s - ASA 81 mg PO daily - Enalapril 30 mg PO daily - Metoprolol succinate 50 mg PO daily - Norvasc 10mg PO daily Urinary Retention Resolved - CT A/P: bladder wall thickening (cystitis), b/l renal parenchymal high density may be underlying metabolic disorder - I/Os - sagastume catheter (07/27) - flomax 0.4mg PO BID - finasteride 5mg PO daily - Urology consulted: Titi Kam - maintain sagastume until outpatient follow - Sagastume D/C'ed @ 10 AM on 08/13, patient has been urinating freely CAP Resolved - CXR 08/06: no active disease - CT A/P: LLL consolidation vs atelectasis - ancef 2000mg IV q8h (07/25) Staph Aureus Bacteremia: Resolved - Initially: Blood Cx positive for Staph aureus (07/21); F/u Blood Cx negative 07/28 X 5 days - Urine Cx: no growth - Procal 14.74, Tmax 100.8 (08/01) - Tylenol 650 mg PO Q6H PRN - Echo: LV normal size and EF. LA mildly dilated. Mild TR - F/u cardio, Dr. Ge recs: - consider KASH if BCx+ in future, signed off - F/u ID, Dr. Garcia recs: - 6-8 week course antibiotic treatment, as per ID - ancef 2000mg IV q8h (07/25), as per ID - likely source: spinal abscess Unresponsiveness Resolved AAOx3 Previously - Code stroke - EEG: nonspecific abnormalities, no seizures noted - CT head: no acute findings - CTA head and neck: no significant stenoses or abnormalities - PRL wnl (12.9) - Gabapentin 100 mg PO TID - Neurology consulted: Manda - no need for anticonvulsant at this time Dysuria Resolved - burning on urination since last night - UA - leuko esterase 2+, WBC 50, squamous 1+ - UC - yeast species > 189130 cfu/ml - fluconazole 100 mg PO daily - continue for 4 more days as patients symptoms are improving - bladder scan revealed < 200 ml urine 08/20 - Added pyridium 100 mg TIDPC for 2 days for symptom relief Ppx: DVT: Heparin 5000 units Q12H GI: Protonix 40 mg PO daily Labs: CBC/ CMP Q2D Mag/Phs Q4D Diabetic Diet Patient may shower PT/OT: f/u recs for d/c recs for 09/04; percocet 5/325 X2 tabs daily 30 mins prior physical therapy Dispo: pt without insurance and undocumented citizen, pending medicaid acceptance. Likely to stay for duration of antibiotic tx course. Discussed with socially responsible investment adviser for wheelchair for patient upon discharge. F/u MRI on 09/02. Informed patient he will possibly be a discharge next Sunday and to discuss it with his . <Mila Curiel - Last Filed: 09/04/18 18:15> Objective - Vital Signs/Intake and Output Vital Signs (last 24 hours): Temp Pulse Resp BP Pulse Ox 97.6 F 83 20 155/76 H 99 09/04/18 07:37 09/04/18 07:37 09/04/18 07:37 09/04/18 09:16 09/04/18 07:37 Intake and Output: 09/04/18 09/04/18 06:59 18:59 Intake Total 1230 350 Output Total 1000 Balance 230 350 - Medications Medications: Current Medications Acetaminophen (Tylenol 325mg Tab) 650 mg PO Q6 PRN PRN Reason: Fever >100.4 or Pain Last Admin: 09/03/18 09:50 Dose: 650 mg Amlodipine Besylate (Norvasc) 10 mg PO DAILY [facility] Last Admin: 09/04/18 09:18 Dose: 10 mg Aspirin (Ecotrin) 81 mg PO DAILY [facility] Last Admin: 09/04/18 09:18 Dose: 81 mg Docusate Sodium (Colace) 100 mg PO TID [facility] Last Admin: 09/04/18 17:57 Dose: 100 mg Enalapril Maleate (Vasotec) 40 mg PO DAILY [facility] Last Admin: 09/04/18 09:16 Dose: 40 mg Famotidine (Pepcid) 20 mg PO DAILY [facility] Last Admin: 09/04/18 09:18 Dose: 20 mg Ferrous Sulfate (Feosol) 325 mg PO TID [facility] Last Admin: 09/04/18 17:59 Dose: 325 mg Finasteride (Proscar) 5 mg PO DAILY [facility] Last Admin: 09/04/18 10:30 Dose: 5 mg Gabapentin (Neurontin) 200 mg PO TID [facility] Last Admin: 09/04/18 14:59 Dose: 200 mg Heparin Sodium (Porcine) (Heparin) 5,000 units SC BID [facility] Last Admin: 09/04/18 18:00 Dose: 5,000 units Cefazolin Sodium 2,000 mg/ (Sodium Chloride) 50 mls @ 100 mls/hr IVPB Q8H [facility]; Protocol Last Admin: 09/04/18 11:38 Dose: 100 mls/hr Insulin Glargine (Lantus) 30 unit SC DAILY [facility] Last Admin: 09/04/18 09:17 Dose: 30 units Insulin Human Regular (Novolin R) 0 unit SC ACHS [facility]; Protocol Last Admin: 09/04/18 18:02 Dose: 2 units Lactobacillus Acidophilus (Bacid Acidophilus) 1 cap PO BID [facility] Last Admin: 09/04/18 09:18 Dose: 1 cap Lidocaine (Lidoderm) 1 ea TD DAILY [facility] Last Admin: 09/04/18 09:19 Dose: 1 ea Metoprolol Succinate (Toprol Xl) 50 mg PO DAILY [facility] Last Admin: 09/04/18 09:18 Dose: 50 mg Mupirocin (Bactroban Ointment) 0 gm TOP DAILY [facility] Last Admin: 09/04/18 09:37 Dose: 1 applic Oxycodone/Acetaminophen (Percocet 5/325 Mg Tab) 1 tab PO DAILY PRN PRN Reason: Pain, moderate (4-7) Stop: 09/05/18 16:29 Polyethylene Glycol (Miralax) 17 gm PO MWF [facility] Last Admin: 09/04/18 08:36 Dose: 17 gm Tamsulosin HCl (Flomax) 0.4 mg PO BID [facility] Last Admin: 09/04/18 17:57 Dose: 0.4 mg Vitamin A (Vitamin A & D Oint Ud Foilpak) 1 ea TOP BID [facility] Last Admin: 09/04/18 09:17 Dose: 1 ea - Labs Labs: 09/03/18 06:18 09/03/18 06:18 PT 15.6 SECONDS (9.7-12.2) H 07/21/18 20:28 INR 1.4 07/21/18 20:28 APTT 34 SECONDS (21-34) 07/21/18 20:28 Attending/Attestation - Attestation I have personally seen and examined this patient.: Yes I have fully participated in the care of the patient.: Yes I have reviewed all pertinent clinical information, including history, physical exam and plan: Yes
[2018-08-31] MEDS: Metoprolol Succinate 50 mg XL Tab PO SCH (09:58)
[2018-08-31] MEDS: Vitamins A & D Oint UD Foilpak TOP SCH ×2 (09:58→18:32)
[2018-08-31] MEDS: Naproxen 275 mg Tab PO PRN (09:59)
[2018-08-31] MEDS: Lactobacillus Acidophilus 500 MU Cap PO SCH ×2 (09:59→18:30)
[2018-08-31] MEDS: Lidocaine 5% Patch TD SCH (10:00)
[2018-08-31] MEDS: (Lantus) Insulin Glargine, Recombinant SC SCH (10:05)
--- NOTE | 2018-09-01 03:33 | CP.PCM.PN ---
<Chemo Tabor - Last Filed: 09/01/18 03:29> Subjective - Date & Time of Evaluation Date of Evaluation: 09/01/18 Time of Evaluation: 03:29 - Subjective Subjective: PGY1 Medicine progress note for hospitalist Pt was seen and examined at bedside. Pt has no complaints at this time. Pt is resting comfortably watching TV. Denies fever, chills, cp, sob, abdominal pain, n/v/d, hematochezia, melena, dysuria, hematuria, leg pain and swelling. Pt is AAOx3. Objective - Vital Signs/Intake and Output Vital Signs (last 24 hours): Temp Pulse Resp BP Pulse Ox 98.4 F 87 20 136/72 99 09/01/18 00:00 09/01/18 00:00 09/01/18 00:00 09/01/18 00:00 09/01/18 00:00 Intake and Output: 08/31/18 09/01/18 18:59 06:59 Intake Total 850 450 Balance 850 450 - Medications Medications: Current Medications Acetaminophen (Tylenol 325mg Tab) 650 mg PO Q6 PRN PRN Reason: Fever >100.4 or Pain Last Admin: 08/21/18 13:47 Dose: 650 mg Amlodipine Besylate (Norvasc) 10 mg PO DAILY [facility] Last Admin: 08/31/18 09:58 Dose: 10 mg Aspirin (Ecotrin) 81 mg PO DAILY [facility] Last Admin: 08/31/18 09:58 Dose: 81 mg Docusate Sodium (Colace) 100 mg PO TID [facility] Last Admin: 08/31/18 18:31 Dose: 100 mg Enalapril Maleate (Vasotec) 40 mg PO DAILY [facility] Last Admin: 08/31/18 09:57 Dose: 40 mg Famotidine (Pepcid) 20 mg PO DAILY [facility] Last Admin: 08/31/18 09:57 Dose: 20 mg Ferrous Sulfate (Feosol) 325 mg PO TID [facility] Last Admin: 08/31/18 18:31 Dose: 325 mg Finasteride (Proscar) 5 mg PO DAILY [facility] Last Admin: 08/31/18 10:06 Dose: 5 mg Gabapentin (Neurontin) 200 mg PO TID [facility] Last Admin: 08/31/18 18:31 Dose: 200 mg Heparin Sodium (Porcine) (Heparin) 5,000 units SC BID [facility] Last Admin: 08/31/18 18:31 Dose: 5,000 units Cefazolin Sodium 2,000 mg/ (Sodium Chloride) 50 mls @ 100 mls/hr IVPB Q8H [facility]; Protocol Last Admin: 08/31/18 18:35 Dose: 100 mls/hr Insulin Glargine (Lantus) 30 unit SC DAILY [facility] Last Admin: 08/31/18 10:05 Dose: 30 units Insulin Human Regular (Novolin R) 0 unit SC ACHS [facility]; Protocol Last Admin: 08/31/18 22:10 Dose: Not Given Lactobacillus Acidophilus (Bacid Acidophilus) 1 cap PO BID [facility] Last Admin: 08/31/18 18:30 Dose: 1 cap Lidocaine (Lidoderm) 1 ea TD DAILY [facility] Last Admin: 08/31/18 10:00 Dose: 1 ea Metoprolol Succinate (Toprol Xl) 50 mg PO DAILY [facility] Last Admin: 08/31/18 09:58 Dose: 50 mg Mupirocin (Bactroban Ointment) 0 gm TOP DAILY [facility] Last Admin: 08/31/18 09:58 Dose: 1 applic Naproxen (Anaprox) 275 mg PO BID PRN PRN Reason: Pain, moderate (4-7) Last Admin: 08/31/18 09:59 Dose: 275 mg Oxycodone/Acetaminophen (Percocet 5/325 Mg Tab) 1 tab PO DAILY PRN PRN Reason: Pain, moderate (4-7) Stop: 09/05/18 16:29 Polyethylene Glycol (Miralax) 17 gm PO HS PRN PRN Reason: Constipation Polyethylene Glycol (Miralax) 17 gm PO MWF [facility] Last Admin: 08/30/18 10:03 Dose: 17 gm Tamsulosin HCl (Flomax) 0.4 mg PO BID [facility] Last Admin: 08/31/18 18:31 Dose: 0.4 mg Vitamin A (Vitamin A & D Oint Ud Foilpak) 1 ea TOP BID [facility] Last Admin: 08/31/18 18:32 Dose: 1 ea - Labs Labs: 08/30/18 07:55 08/30/18 07:55 PT 15.6 SECONDS (9.7-12.2) H 07/21/18 20:28 INR 1.4 07/21/18 20:28 APTT 34 SECONDS (21-34) 07/21/18 20:28 - Additional Findings Additional findings: - Constitutional Appears: Non-toxic, No Acute Distress - Head Exam Head Exam: NORMAL INSPECTION - Eye Exam Eye Exam: Normal appearance - ENT Exam ENT Exam: Mucous Membranes Moist Additional comments: ulcerative lesion on the L nare and L malar region, erythema with slight granulation tissue. no drainage noted. cartilage visible. No active bleeding, or signs of infection. - Neck Exam Neck Exam: Full ROM. absent: Tenderness - Respiratory Exam Respiratory Exam: Clear to Ausculation Bilateral, NORMAL BREATHING PATTERN. absent: Rhonchi, Wheezes, Stridor - Cardiovascular Exam Cardiovascular Exam: +S1, +S2 - GI/Abdominal Exam GI & Abdominal Exam: Soft, Normal Bowel Sounds - Extremities Exam Additional comments: Bilateral BKA, full ROM. No edema or tenderness. - Back Exam Back Exam: normal inspection. absent: CVA tenderness (L), CVA tenderness (R) - Neurological Exam Neurological Exam: Alert, Awake, Oriented x3 Assessment and Plan - Assessment and Plan (Free Text) Assessment: 53 yo male with a history of uncontrolled T2DM (s/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 Patient's blood cultures are positive for Staph aureus, currently being treated for bacteremia & discitis & spinal abscess Plan: Epidural Abscess - MRI L-spine: suspicious for discitis osteomyelitis involving L4-5 intervetebral disc w/ anterior epidural abscess, R iliopsoas fluid collection 1.5x1.9cm - pt reports 3 month history, with radiation and urinary retention - Back pain - pt denies pain while laying in bed - per PT, patient refuses due to back pain - naproxen 550mg PO q12h PRN - percocet 5/325 X2 tabs daily 30 mins prior physical therapy - per PT, patient participated in activity much more than previous days - ancef 2000mg IV q8h (07/25) - F/u IR, Dr. Fragoso recs: - psoas collection and spinal abscess too small to drain - F/u NeuroSx, Dr. Olivia recs: - no intervention at this time - F/u ID, Dr. Garcia recs: - 6-8 weeks of abx of ancef 2000mg Q8H; started 07/25/18 - will need through 09/04/18 - F/u MRI lumbar spinal canal w/o contrast on 09/02 Anemia - likely of chronic disease - Hgb stable in 8s - patient remains asymptomatic - will continue to monitor L Maxillofacial Ulcer - CT 07/25: soft tissue swelling, no osteomyelitis or drainable fluid - Covered w/ ancef 2000mg IV q8h (07/25) for epidural abscess - Will be on 6-8 week course antibiotic treatment, as per ID for epidural abscess - mupirocin 2g top BID - wound care consulted - Pt following up with plastic surgeon at [facility] sep 04 - Patient has contact information - stable DM type 2 - A1c 8.9 - medium dose Novolin R ISS - blood sugars in 180s - lantus 30u SC daily (increased from 25 to 30 on 08/13) - Hypoglycemia protocol - Accuchecks ACHS - despite persistent education of no sweet/sugar filled drinks, patient continues to have juices at bedside - Diabetic diet education referral HTN - patient initially HTN in 160s to 170s, now 130s to 150s - ASA 81 mg PO daily - Enalapril 30 mg PO daily - Metoprolol succinate 50 mg PO daily - Norvasc 10mg PO daily Urinary Retention Resolved - CT A/P: bladder wall thickening (cystitis), b/l renal parenchymal high density may be underlying metabolic disorder - I/Os - sagastume catheter (07/27) - flomax 0.4mg PO BID - finasteride 5mg PO daily - Urology consulted: Titi Kam - maintain sagastume until outpatient follow - Sagastume D/C'ed @ 10 AM on 08/13, patient has been urinating freely CAP Resolved - CXR 08/06: no active disease - CT A/P: LLL consolidation vs atelectasis - ancef 2000mg IV q8h (07/25) Staph Aureus Bacteremia: Resolved - Initially: Blood Cx positive for Staph aureus (07/21); F/u Blood Cx negative 07/28 X 5 days - Urine Cx: no growth - Procal 14.74, Tmax 100.8 (08/01) - Tylenol 650 mg PO Q6H PRN - Echo: LV normal size and EF. LA mildly dilated. Mild TR - F/u cardio, Dr. Ge recs: - consider KASH if BCx+ in future, signed off - F/u ID, Dr. Garcia recs: - 6-8 week course antibiotic treatment, as per ID - ancef 2000mg IV q8h (07/25), as per ID - likely source: spinal abscess Unresponsiveness Resolved AAOx3 Previously - Code stroke - EEG: nonspecific abnormalities, no seizures noted - CT head: no acute findings - CTA head and neck: no significant stenoses or abnormalities - PRL wnl (12.9) - Gabapentin 100 mg PO TID - Neurology consulted: Manda - no need for anticonvulsant at this time Dysuria Resolved - burning on urination since last night - UA - leuko esterase 2+, WBC 50, squamous 1+ - UC - yeast species > [id number] cfu/ml - fluconazole 100 mg PO daily - continue for 4 more days as patients symptoms are improving - bladder scan revealed < 200 ml urine 08/20 - Added pyridium 100 mg TIDPC for 2 days for symptom relief Ppx: DVT: Heparin 5000 units Q12H GI: Protonix 40 mg PO daily Labs: CBC/ CMP Q2D Mag/Phs Q4D Diabetic Diet Patient may shower PT/OT: f/u recs for d/c recs for 09/04; percocet 5/325 X2 tabs daily 30 mins prior physical therapy Dispo: pt without insurance and undocumented citizen, pending medicaid acceptance. Likely to stay for duration of antibiotic tx course. Discussed with social media content manager for wheelchair for patient upon discharge. F/u MRI on 09/02. Informed patient he will possibly be a discharge next Sunday and to discuss it with his . <Mila Curiel - Last Filed: 09/04/18 09:14> Objective - Vital Signs/Intake and Output Vital Signs (last 24 hours): Temp Pulse Resp BP Pulse Ox 97.6 F 83 20 155/76 H 99 09/04/18 07:37 09/04/18 07:37 09/04/18 07:37 09/04/18 07:37 09/04/18 07:37 Intake and Output: 09/04/18 09/04/18 06:59 18:59 Intake Total 1230 Output Total 1000 Balance 230 - Medications Medications: Current Medications Acetaminophen (Tylenol 325mg Tab) 650 mg PO Q6 PRN PRN Reason: Fever >100.4 or Pain Last Admin: 09/03/18 09:50 Dose: 650 mg Amlodipine Besylate (Norvasc) 10 mg PO DAILY [facility] Last Admin: 09/03/18 09:43 Dose: 10 mg Aspirin (Ecotrin) 81 mg PO DAILY [facility] Last Admin: 09/03/18 09:44 Dose: 81 mg Docusate Sodium (Colace) 100 mg PO TID [facility] Last Admin: 09/03/18 17:38 Dose: 100 mg Enalapril Maleate (Vasotec) 40 mg PO DAILY [facility] Last Admin: 09/03/18 09:43 Dose: 40 mg Famotidine (Pepcid) 20 mg PO DAILY [facility] Last Admin: 09/03/18 09:43 Dose: 20 mg Ferrous Sulfate (Feosol) 325 mg PO TID [facility] Last Admin: 09/03/18 17:38 Dose: 325 mg Finasteride (Proscar) 5 mg PO DAILY [facility] Last Admin: 09/03/18 09:43 Dose: 5 mg Gabapentin (Neurontin) 200 mg PO TID [facility] Last Admin: 09/03/18 17:37 Dose: 200 mg Heparin Sodium (Porcine) (Heparin) 5,000 units SC BID [facility] Last Admin: 09/03/18 17:38 Dose: 5,000 units Cefazolin Sodium 2,000 mg/ (Sodium Chloride) 50 mls @ 100 mls/hr IVPB Q8H [facility]; Protocol Last Admin: 09/04/18 02:29 Dose: 100 mls/hr Insulin Glargine (Lantus) 30 unit SC DAILY [facility] Last Admin: 09/03/18 09:42 Dose: 30 units Insulin Human Regular (Novolin R) 0 unit SC ACHS [facility]; Protocol Last Admin: 09/04/18 08:00 Dose: 2 units Lactobacillus Acidophilus (Bacid Acidophilus) 1 cap PO BID [facility] Last Admin: 09/03/18 17:37 Dose: 1 cap Lidocaine (Lidoderm) 1 ea TD DAILY [facility] Last Admin: 09/03/18 09:42 Dose: 1 ea Metoprolol Succinate (Toprol Xl) 50 mg PO DAILY [facility] Last Admin: 09/03/18 09:43 Dose: 50 mg Mupirocin (Bactroban Ointment) 0 gm TOP DAILY [facility] Last Admin: 09/03/18 09:45 Dose: 1 applic Oxycodone/Acetaminophen (Percocet 5/325 Mg Tab) 1 tab PO DAILY PRN PRN Reason: Pain, moderate (4-7) Stop: 09/05/18 16:29 Polyethylene Glycol (Miralax) 17 gm PO MWF [facility] Last Admin: 09/04/18 08:36 Dose: 17 gm Tamsulosin HCl (Flomax) 0.4 mg PO BID [facility] Last Admin: 09/03/18 17:37 Dose: 0.4 mg Vitamin A (Vitamin A & D Oint Ud Foilpak) 1 ea TOP BID [facility] Last Admin: 09/03/18 17:35 Dose: 1 ea - Labs Labs: 09/03/18 06:18 09/03/18 06:18 PT 15.6 SECONDS (9.7-12.2) H 07/21/18 20:28 INR 1.4 07/21/18 20:28 APTT 34 SECONDS (21-34) 07/21/18 20:28 Attending/Attestation - Attestation I have personally seen and examined this patient.: Yes I have fully participated in the care of the patient.: Yes I have reviewed all pertinent clinical information, including history, physical exam and plan: Yes Notes (Text): No complain Discussed about discharge plan 09/04/18 09:13
[2018-09-01 08:30] LABS: BASO % 0.5 % (0.0-2.0); EOS # 0.3 K/uL (0.0-0.7); LYMPH # 1.6 K/uL (1.0-4.3); LYMPH % 23.2 % (20.0-40.0); MEAN CELL VOLUME 87.2 fL (80.0-94.0); MEAN CORPUSCULAR HEMOGLOBIN 29.1 pg (27.0-31.0); MEAN CORPUSCULAR HGB CONC 33.3 g/dL (33.0-37.0); MEAN PLATELET VOLUME 9.2 fL (7.2-11.7); MONO # 0.6 K/uL (0.0-0.8); NEUT # 4.4 K/uL (1.8-7.0); NEUT % 63.3 % (50.0-75.0); RBC 2.77 Mil/uL (4.40-5.90); RED CELL DISTRIBUTION WIDTH 15.1 % (11.5-14.5)
[2018-09-01] MEDS: (Novolin R) Insulin Human Regular 100 units/ml vial SC SCH ×4 (08:30→21:44)
[2018-09-01 08:51] LABS: ALB/GLOB RATIO 0.8 (1.0-2.1); ALBUMIN 3.1 g/dL (3.5-5.0); ALT/SGPT 10 U/L (21-72); AST/SGOT 20 U/L (17-59); BLOOD UREA NITROGEN 21 mg/dL (9-20); CALCIUM 8.7 mg/dl (8.6-10.4); GFR NON-AFRICAN AMERICAN > 60
[2018-09-01] MEDS: Lidocaine 5% Patch TD SCH (09:44)
[2018-09-01] MEDS: Vitamins A & D Oint UD Foilpak TOP SCH ×2 (09:48→17:56)
[2018-09-01] MEDS: Metoprolol Succinate 50 mg XL Tab PO SCH (09:49)
[2018-09-01] MEDS: (Lantus) Insulin Glargine, Recombinant SC SCH (10:36)
[2018-09-01] MEDS: Lactobacillus Acidophilus 500 MU Cap PO SCH ×2 (10:41→17:55)
[2018-09-01 18:32] VITALS: RESP 20
--- NOTE | 2018-09-02 07:31 | CP.PCM.PN ---
<Rodriguez An - Last Filed: 09/02/18 11:44> Subjective - Date & Time of Evaluation Date of Evaluation: 09/02/18 Time of Evaluation: 07:00 - Subjective Subjective: PGY 1 Medicine Progress note for Hospitalist Dr. Alston. Patient seen and examined at bedside. No overnight events reported. Patient lying in bed, no acute distress. Patient reports this morning his back pain was slightly increased; however, it is tolerable. Pt offers no other complaints. Patient denies chest pain, SOB, nausea, vomiting, fevers, chills, dysuria, he maturia. Patient scheduled for MRI today. Objective - Vital Signs/Intake and Output Vital Signs (last 24 hours): Temp Pulse Resp BP Pulse Ox 98.4 F 84 20 114/68 99 09/02/18 00:00 09/02/18 00:00 09/02/18 00:00 09/02/18 00:00 09/02/18 00:00 Intake and Output: 09/02/18 09/02/18 06:59 18:59 Intake Total 400 Balance 400 - Medications Medications: Current Medications Acetaminophen (Tylenol 325mg Tab) 650 mg PO Q6 PRN PRN Reason: Fever >100.4 or Pain Last Admin: 08/21/18 13:47 Dose: 650 mg Amlodipine Besylate (Norvasc) 10 mg PO DAILY [facility] Last Admin: 09/01/18 09:47 Dose: 10 mg Aspirin (Ecotrin) 81 mg PO DAILY [facility] Last Admin: 09/01/18 09:49 Dose: 81 mg Docusate Sodium (Colace) 100 mg PO TID [facility] Last Admin: 09/01/18 17:55 Dose: 100 mg Enalapril Maleate (Vasotec) 40 mg PO DAILY [facility] Last Admin: 09/01/18 09:48 Dose: 40 mg Famotidine (Pepcid) 20 mg PO DAILY [facility] Last Admin: 09/01/18 09:50 Dose: 20 mg Ferrous Sulfate (Feosol) 325 mg PO TID [facility] Last Admin: 09/01/18 17:55 Dose: 325 mg Finasteride (Proscar) 5 mg PO DAILY [facility] Last Admin: 09/01/18 10:55 Dose: 5 mg Gabapentin (Neurontin) 200 mg PO TID [facility] Last Admin: 09/01/18 17:55 Dose: 200 mg Heparin Sodium (Porcine) (Heparin) 5,000 units SC BID [facility] Last Admin: 09/01/18 18:15 Dose: 5,000 units Cefazolin Sodium 2,000 mg/ (Sodium Chloride) 50 mls @ 100 mls/hr IVPB Q8H [facility]; Protocol Last Admin: 09/02/18 03:14 Dose: 100 mls/hr Insulin Glargine (Lantus) 30 unit SC DAILY [facility] Last Admin: 09/01/18 10:36 Dose: 30 units Insulin Human Regular (Novolin R) 0 unit SC ACHS [facility]; Protocol Last Admin: 09/01/18 21:44 Dose: Not Given Lactobacillus Acidophilus (Bacid Acidophilus) 1 cap PO BID [facility] Last Admin: 09/01/18 17:55 Dose: 1 cap Lidocaine (Lidoderm) 1 ea TD DAILY [facility] Last Admin: 09/01/18 09:44 Dose: 1 ea Metoprolol Succinate (Toprol Xl) 50 mg PO DAILY [facility] Last Admin: 09/01/18 09:49 Dose: 50 mg Mupirocin (Bactroban Ointment) 0 gm TOP DAILY [facility] Last Admin: 09/01/18 09:50 Dose: 1 applic Oxycodone/Acetaminophen (Percocet 5/325 Mg Tab) 1 tab PO DAILY PRN PRN Reason: Pain, moderate (4-7) Stop: 09/05/18 16:29 Polyethylene Glycol (Miralax) 17 gm PO MWF [facility] Last Admin: 08/30/18 10:03 Dose: 17 gm Tamsulosin HCl (Flomax) 0.4 mg PO BID [facility] Last Admin: 09/01/18 17:55 Dose: 0.4 mg Vitamin A (Vitamin A & D Oint Ud Foilpak) 1 ea TOP BID [facility] Last Admin: 09/01/18 17:56 Dose: 1 ea - Labs Labs: 09/01/18 08:07 09/01/18 08:07 PT 15.6 SECONDS (9.7-12.2) H 07/21/18 20:28 INR 1.4 07/21/18 20:28 APTT 34 SECONDS (21-34) 07/21/18 20:28 - Constitutional Appears: Non-toxic, No Acute Distress - Head Exam Head Exam: ATRAUMATIC, NORMAL INSPECTION, NORMOCEPHALIC - Eye Exam Eye Exam: Normal appearance - ENT Exam ENT Exam: Mucous Membranes Moist Additional comments: ulcerative lesion on the L nare and L malar region, erythema with slight granulation tissue. no drainage noted. cartilage visible. No active bleeding, or signs of infection. - Respiratory Exam Respiratory Exam: Clear to Ausculation Bilateral, NORMAL BREATHING PATTERN. absent: Rales, Rhonchi, Wheezes - Cardiovascular Exam Cardiovascular Exam: +S1, +S2. absent: Murmur - GI/Abdominal Exam GI & Abdominal Exam: Soft, Normal Bowel Sounds. absent: Firm, Guarding, Rigid - Extremities Exam Extremities Exam: absent: Calf Tenderness Additional comments: Bilateral BKA, full ROM. No edema or tenderness. - Back Exam Back Exam: absent: CVA tenderness (L), CVA tenderness (R) - Neurological Exam Neurological Exam: Alert, Awake, Oriented x3 - Psychiatric Exam Psychiatric exam: Normal Affect, Normal Mood - Skin Skin Exam: Dry, Intact, Normal Color, Warm Assessment and Plan - Assessment and Plan (Free Text) Assessment: 53 yo male with a history of uncontrolled T2DM (s/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 Patient's blood cultures are positive for Staph aureus, currently being treated for bacteremia & discitis & spinal abscess Plan: Epidural Abscess - MRI L-spine: suspicious for discitis osteomyelitis involving L4-5 int ervetebral disc w/ anterior epidural abscess, R iliopsoas fluid collection 1.5x1.9cm - pt reports 3 month history, with radiation and urinary retention - Back pain - pt denies pain while laying in bed - per PT, patient refuses due to back pain - naproxen 550mg PO q12h PRN - percocet 5/325 X2 tabs daily 30 mins prior physical therapy - per PT, patient participated in activity much more than previous days - ancef 2000mg IV q8h (07/25) - F/u IR, Dr. Fragoso recs: - psoas collection and spinal abscess too small to drain - F/u NeuroSx, Dr. Olivia recs: - no intervention at this time - F/u ID, Dr. Garcia recs: - 6-8 weeks of abx of ancef 2000mg Q8H; started 07/25/18 - will need through 09/04/18 - F/u MRI lumbar spinal canal w/o contrast on 09/02 Anemia - likely of chronic disease - Hgb stable in 8s - patient remains asymptomatic - will continue to monitor L Maxillofacial Ulcer - CT 07/25: soft tissue swelling, no osteomyelitis or drainable fluid - Covered w/ ancef 2000mg IV q8h (07/25) for epidural abscess - Will be on 6-8 week course antibiotic treatment, as per ID for epidural abscess - mupirocin 2g top BID - wound care consulted - Pt following up with plastic surgeon at [facility] sep 04 - Patient has contact information - stable DM type 2 - A1c 8.9 - medium dose Novolin R ISS - blood sugars in 180s - lantus 30u SC daily (increased from 25 to 30 on 08/13) - Hypoglycemia protocol - Accuchecks ACHS - despite persistent education of no sweet/sugar filled drinks, patient continues to have juices at bedside - Diabetic diet education referral HTN - patient initially HTN in 160s to 170s, now 130s to 150s - ASA 81 mg PO daily - Enalapril 30 mg PO daily - Metoprolol succinate 50 mg PO daily - Norvasc 10mg PO daily Urinary Retention Resolved - CT A/P: bladder wall thickening (cystitis), b/l renal parenchymal high density may be underlying metabolic disorder - I/Os - sagastume catheter (07/27) - flomax 0.4mg PO BID - finasteride 5mg PO daily - Urology consulted: Titi Kam - maintain sagastume until outpatient follow - Sagastume D/C'ed @ 10 AM on 08/13, patient has been urinating freely CAP Resolved - CXR 08/06: no active disease - CT A/P: LLL consolidation vs atelectasis - ancef 2000mg IV q8h (07/25) Staph Aureus Bacteremia: Resolved - Initially: Blood Cx positive for Staph aureus (07/21); F/u Blood Cx negative 07/28 X 5 days - Urine Cx: no growth - Procal 14.74, Tmax 100.8 (08/01) - Tylenol 650 mg PO Q6H PRN - Echo: LV normal size and EF. LA mildly dilated. Mild TR - F/u cardio, Dr. Ge recs: - consider KASH if BCx+ in future, signed off - F/u ID, Dr. Garcia recs: - 6-8 week course antibiotic treatment, as per ID - ancef 2000mg IV q8h (07/25), as per ID - likely source: spinal abscess Unresponsiveness Resolved AAOx3 Previously - Code stroke - EEG: nonspecific abnormalities, no seizures noted - CT head: no acute findings - CTA head and neck: no significant stenoses or abnormalities - PRL wnl (12.9) - Gabapentin 100 mg PO TID - Neurology consulted: Manda - no need for anticonvulsant at this time Dysuria Resolved - burning on urination since last night - UA - leuko esterase 2+, WBC 50, squamous 1+ - UC - yeast species > 199907 cfu/ml - fluconazole 100 mg PO daily - continue for 4 more days as patients symptoms are improving - bladder scan revealed < 200 ml urine 08/20 - Added pyridium 100 mg TIDPC for 2 days for symptom relief Ppx: DVT: Heparin 5000 units Q12H GI: Protonix 40 mg PO daily Labs: CBC/ CMP Q2D Mag/Phs Q4D Diabetic Diet Patient may shower PT/OT: f/u recs for d/c recs for 09/04; percocet 5/325 X2 tabs daily 30 mins prior physical therapy Dispo: pt without insurance and undocumented citizen, pending medicaid acceptance. Likely to stay for duration of antibiotic tx course. Discussed with [employer] media job [employer] for wheelchair for patient upon discharge. F/u MRI on 09/02. Informed patient he will possibly be a discharge next Sunday and to discuss it with his . <Galen Alston - Last Filed: 09/02/18 12:52> Objective - Vital Signs/Intake and Output Vital Signs (last 24 hours): Temp Pulse Resp BP Pulse Ox 98.6 F 86 20 155/77 H 97 09/02/18 08:14 09/02/18 08:14 09/02/18 08:14 09/02/18 09:59 09/02/18 08:14 Intake and Output: 09/02/18 09/02/18 06:59 18:59 Intake Total 400 Balance 400 - Medications Medications: Current Medications Acetaminophen (Tylenol 325mg Tab) 650 mg PO Q6 PRN PRN Reason: Fever >100.4 or Pain Last Admin: 08/21/18 13:47 Dose: 650 mg Amlodipine Besylate (Norvasc) 10 mg PO DAILY [facility] Last Admin: 09/02/18 10:02 Dose: 10 mg Aspirin (Ecotrin) 81 mg PO DAILY [facility] Last Admin: 09/02/18 10:01 Dose: 81 mg Docusate Sodium (Colace) 100 mg PO TID [facility] Last Admin: 09/02/18 10:01 Dose: 100 mg Enalapril Maleate (Vasotec) 40 mg PO DAILY [facility] Last Admin: 09/02/18 09:59 Dose: 40 mg Famotidine (Pepcid) 20 mg PO DAILY [facility] Last Admin: 09/02/18 10:36 Dose: 20 mg Ferrous Sulfate (Feosol) 325 mg PO TID [facility] Last Admin: 09/02/18 10:02 Dose: 325 mg Finasteride (Proscar) 5 mg PO DAILY [facility] Last Admin: 09/02/18 10:34 Dose: 5 mg Gabapentin (Neurontin) 200 mg PO TID [facility] Last Admin: 09/02/18 10:00 Dose: 200 mg Heparin Sodium (Porcine) (Heparin) 5,000 units SC BID [facility] Last Admin: 09/02/18 10:03 Dose: 5,000 units Cefazolin Sodium 2,000 mg/ (Sodium Chloride) 50 mls @ 100 mls/hr IVPB Q8H [facility]; Protocol Last Admin: 09/02/18 10:45 Dose: 100 mls/hr Insulin Glargine (Lantus) 30 unit SC DAILY [facility] Last Admin: 09/02/18 10:44 Dose: 30 units Insulin Human Regular (Novolin R) 0 unit SC ACHS [facility]; Protocol Last Admin: 09/02/18 12:04 Dose: 3 units Lactobacillus Acidophilus (Bacid Acidophilus) 1 cap PO BID [facility] Last Admin: 09/02/18 10:35 Dose: 1 cap Lidocaine (Lidoderm) 1 ea TD DAILY [facility] Last Admin: 09/02/18 10:04 Dose: 1 ea Metoprolol Succinate (Toprol Xl) 50 mg PO DAILY [facility] Last Admin: 09/02/18 10:02 Dose: 50 mg Mupirocin (Bactroban Ointment) 0 gm TOP DAILY [facility] Last Admin: 09/02/18 10:35 Dose: 1 applic Oxycodone/Acetaminophen (Percocet 5/325 Mg Tab) 1 tab PO DAILY PRN PRN Reason: Pain, moderate (4-7) Stop: 09/05/18 16:29 Polyethylene Glycol (Miralax) 17 gm PO MWF [facility] Last Admin: 09/02/18 10:04 Dose: Not Given Tamsulosin HCl (Flomax) 0.4 mg PO BID [facility] Last Admin: 09/02/18 10:01 Dose: 0.4 mg Vitamin A (Vitamin A & D Oint Ud Foilpak) 1 ea TOP BID [facility] Last Admin: 09/02/18 10:00 Dose: 1 ea - Labs Labs: 09/01/18 08:07 09/01/18 08:07 PT 15.6 SECONDS (9.7-12.2) H 07/21/18 20:28 INR 1.4 07/21/18 20:28 APTT 34 SECONDS (21-34) 07/21/18 20:28 Attending/Attestation - Attestation I have personally seen and examined this patient.: Yes I have fully participated in the care of the patient.: Yes I have reviewed all pertinent clinical information, including history, physical exam and plan: Yes Notes (Text): 09/02/18 12:51 Medical attending: Patient was seen and examined by me. Reviewed the above note by the resident and agree with the above note The patient is not in any acute distress at this time As of this morning pending the MRI and possibly later this week can be discharged to home Galen Alston
[2018-09-02] MEDS: (Novolin R) Insulin Human Regular 100 units/ml vial SC SCH ×4 (08:23→21:33)
[2018-09-02] MEDS: Vitamins A & D Oint UD Foilpak TOP SCH ×2 (10:00→18:14)
[2018-09-02] MEDS: Metoprolol Succinate 50 mg XL Tab PO SCH (10:02)
[2018-09-02] MEDS: POLYETHYLENE GLYCOL 3350 17 GM/Dose PACKET PO SCH (10:04)
[2018-09-02] MEDS: Lidocaine 5% Patch TD SCH (10:04)
[2018-09-02] MEDS: Lactobacillus Acidophilus 500 MU Cap PO SCH ×2 (10:35→18:13)
[2018-09-02] MEDS: (Lantus) Insulin Glargine, Recombinant SC SCH (10:44)
[2018-09-03 06:49] LABS: BASO % 0.4 % (0.0-2.0); EOS # 0.4 K/uL (0.0-0.7); EOS % 4.7 % (0.0-4.0); LYMPH # 1.6 K/uL (1.0-4.3); LYMPH % 19.5 % (20.0-40.0); MEAN CORPUSCULAR HEMOGLOBIN 28.8 pg (27.0-31.0); MONO # 0.6 K/uL (0.0-0.8); MONO % 7.5 % (0.0-10.0); NEUT # 5.5 K/uL (1.8-7.0); NEUT % 67.9 % (50.0-75.0); RBC 2.79 Mil/uL (4.40-5.90); RED CELL DISTRIBUTION WIDTH 15.3 % (11.5-14.5)
--- NOTE | 2018-09-03 07:18 | CP.PCM.PN ---
<Rodriguez An - Last Filed: 09/03/18 13:33> Subjective - Date & Time of Evaluation Date of Evaluation: 09/03/18 Time of Evaluation: 07:25 - Subjective Subjective: PGY 1 Medicine Progress note for Hospitalist Dr. Alston. Patient seen and examined at bedside. No overnight events reported. Patient lying in bed, no acute distress. Patient reports this morning his back pain is still present; however, it is much improved compared to yesterday. Pt offers no other complaints. Patient denies chest pain, SOB, nausea, vomiting, fevers, chills, dysuria, hematuria. Patient had MRI performed today as he refused MRI yesterday. Objective - Vital Signs/Intake and Output Vital Signs (last 24 hours): Temp Pulse Resp BP Pulse Ox 98 F 79 20 148/73 99 09/03/18 00:00 09/03/18 00:00 09/03/18 00:00 09/03/18 00:00 09/03/18 00:00 Intake and Output: 09/03/18 09/03/18 06:59 18:59 Intake Total 450 Balance 450 - Medications Medications: Current Medications Acetaminophen (Tylenol 325mg Tab) 650 mg PO Q6 PRN PRN Reason: Fever >100.4 or Pain Last Admin: 08/21/18 13:47 Dose: 650 mg Amlodipine Besylate (Norvasc) 10 mg PO DAILY [facility] Last Admin: 09/02/18 10:02 Dose: 10 mg Aspirin (Ecotrin) 81 mg PO DAILY [facility] Last Admin: 09/02/18 10:01 Dose: 81 mg Docusate Sodium (Colace) 100 mg PO TID [facility] Last Admin: 09/02/18 18:13 Dose: 100 mg Enalapril Maleate (Vasotec) 40 mg PO DAILY [facility] Last Admin: 09/02/18 09:59 Dose: 40 mg Famotidine (Pepcid) 20 mg PO DAILY [facility] Last Admin: 09/02/18 10:36 Dose: 20 mg Ferrous Sulfate (Feosol) 325 mg PO TID [facility] Last Admin: 09/02/18 18:13 Dose: 325 mg Finasteride (Proscar) 5 mg PO DAILY [facility] Last Admin: 09/02/18 10:34 Dose: 5 mg Gabapentin (Neurontin) 200 mg PO TID [facility] Last Admin: 09/02/18 18:14 Dose: 200 mg Heparin Sodium (Porcine) (Heparin) 5,000 units SC BID [facility] Last Admin: 09/02/18 18:14 Dose: 5,000 units Cefazolin Sodium 2,000 mg/ (Sodium Chloride) 50 mls @ 100 mls/hr IVPB Q8H [facility]; Protocol Last Admin: 09/03/18 02:50 Dose: 100 mls/hr Insulin Glargine (Lantus) 30 unit SC DAILY [facility] Last Admin: 09/02/18 10:44 Dose: 30 units Insulin Human Regular (Novolin R) 0 unit SC ACHS [facility]; Protocol Last Admin: 09/02/18 21:33 Dose: Not Given Lactobacillus Acidophilus (Bacid Acidophilus) 1 cap PO BID [facility] Last Admin: 09/02/18 18:13 Dose: 1 cap Lidocaine (Lidoderm) 1 ea TD DAILY [facility] Last Admin: 09/02/18 10:04 Dose: 1 ea Metoprolol Succinate (Toprol Xl) 50 mg PO DAILY [facility] Last Admin: 09/02/18 10:02 Dose: 50 mg Mupirocin (Bactroban Ointment) 0 gm TOP DAILY [facility] Last Admin: 09/02/18 10:35 Dose: 1 applic Oxycodone/Acetaminophen (Percocet 5/325 Mg Tab) 1 tab PO DAILY PRN PRN Reason: Pain, moderate (4-7) Stop: 09/05/18 16:29 Polyethylene Glycol (Miralax) 17 gm PO MWF [facility] Last Admin: 09/02/18 10:04 Dose: Not Given Tamsulosin HCl (Flomax) 0.4 mg PO BID [facility] Last Admin: 09/02/18 18:13 Dose: 0.4 mg Vitamin A (Vitamin A & D Oint Ud Foilpak) 1 ea TOP BID [facility] Last Admin: 09/02/18 18:14 Dose: 1 ea - Labs Labs: 09/03/18 06:18 09/01/18 08:07 PT 15.6 SECONDS (9.7-12.2) H 07/21/18 20:28 INR 1.4 07/21/18 20:28 APTT 34 SECONDS (21-34) 07/21/18 20:28 - Constitutional Appears: Non-toxic, No Acute Distress - Head Exam Head Exam: NORMAL INSPECTION - Eye Exam Eye Exam: Normal appearance, PERRL - ENT Exam ENT Exam: Mucous Membranes Moist Additional comments: ulcerative lesion on the L nare and L malar region, erythema with slight granulation tissue. no drainage noted. cartilage visible. No active bleeding, or signs of infection. - Respiratory Exam Respiratory Exam: Clear to Ausculation Bilateral, NORMAL BREATHING PATTERN. absent: Rales, Rhonchi, Wheezes - Cardiovascular Exam Cardiovascular Exam: +S1, +S2 - GI/Abdominal Exam GI & Abdominal Exam: Soft, Normal Bowel Sounds. absent: Firm, Guarding, Rigid - Extremities Exam Extremities Exam: absent: Pedal Edema Additional comments: Bilateral BKA, full ROM. No edema or tenderness. - Back Exam Back Exam: absent: CVA tenderness (L), CVA tenderness (R) - Neurological Exam Neurological Exam: Alert, Awake, Oriented x3 - Psychiatric Exam Psychiatric exam: Normal Affect, Normal Mood - Skin Skin Exam: Dry, Normal Color, Warm Assessment and Plan - Assessment and Plan (Free Text) Assessment: 53 yo male with a history of uncontrolled T2DM (s/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 Patient's blood cultures are positive for Staph aureus, currently being treated for bacteremia & discitis & spinal abscess Plan: Epidural Abscess Back pain - MRI L-spine: suspicious for discitis osteomyelitis involving L4-5 intervetebral disc w/ anterior epidural abscess, R iliopsoas fluid collection 1.5x1.9cm - ancef 2000mg IV q8h (07/25) - F/u IR, Dr. Fragoso recs: - psoas collection and spinal abscess too small to drain - F/u NeuroSx, Dr. Olivia recs: - no intervention at this time - F/u ID, Dr. Garcia recs: - 6-8 weeks of abx of ancef 2000mg Q8H; started 07/25/18 - will need through 09/04/18 - F/u MRI lumbar spinal canal w/o contrast on 09/03, pending results, patient likely discharge 09/04/18 - naproxen 550mg PO q12h PRN - percocet 5/325 X2 tabs daily 30 mins prior physical therapy Anemia - likely of chronic disease - Hgb stable in 8s - patient remains asymptomatic - will continue to monitor L Maxillofacial Ulcer - CT 07/25: soft tissue swelling, no osteomyelitis or drainable fluid - Covered w/ ancef 2000mg IV q8h (07/25) for epidural abscess - Will be on 6-8 week course antibiotic treatment, as per ID for epidural abscess - mupirocin 2g top BID - wound care consulted - Pt following up with plastic surgeon at [facility] sep 04 - Patient has contact information - stable DM type 2 - A1c 8.9 - medium dose Novolin R ISS - blood sugars in 180s - lantus 30u SC daily (increased from 25 to 30 on 08/13) - Hypoglycemia protocol - Accuchecks ACHS - despite persistent education of no sweet/sugar filled drinks, patient continues to have juices at bedside - Diabetic diet education referral HTN - patient initially HTN in 160s to 170s, now 130s to 150s - ASA 81 mg PO daily - Enalapril 30 mg PO daily - Metoprolol succinate 50 mg PO daily - Norvasc 10mg PO daily Urinary Retention Resolved - CT A/P: bladder wall thickening (cystitis), b/l renal parenchymal high density may be underlying metabolic disorder - I/Os - sagastume catheter (07/27) - flomax 0.4mg PO BID - finasteride 5mg PO daily - Urology consulted: Titi Kam - maintain sagastume until outpatient follow - Sagastume D/C'ed @ 10 AM on 08/13, patient has been urinating freely CAP Resolved - CXR 08/06: no active disease - CT A/P: LLL consolidation vs atelectasis - ancef 2000mg IV q8h (07/25) Staph Aureus Bacteremia: Resolved - Initially: Blood Cx positive for Staph aureus (07/21); F/u Blood Cx negative 07/28 X 5 days - Urine Cx: no growth - Procal 14.74, Tmax 100.8 (08/01) - Tylenol 650 mg PO Q6H PRN - Echo: LV normal size and EF. LA mildly dilated. Mild TR - F/u cardio, Dr. Ge recs: - consider KASH if BCx+ in future, signed off - F/u ID, Dr. Garcia recs: - 6-8 week course antibiotic treatment, as per ID - ancef 2000mg IV q8h (07/25), as per ID - likely source: spinal abscess Unresponsiveness Resolved AAOx3 Previously - Code stroke - EEG: nonspecific abnormalities, no seizures noted - CT head: no acute findings - CTA head and neck: no significant stenoses or abnormalities - PRL wnl (12.9) - Gabapentin 100 mg PO TID - Neurology consulted: Manda - no need for anticonvulsant at this time Dysuria Resolved - burning on urination since last night - UA - leuko esterase 2+, WBC 50, squamous 1+ - UC - yeast species > 550484 cfu/ml - fluconazole 100 mg PO daily - continue for 4 more days as patients symptoms are improving - bladder scan revealed < 200 ml urine 08/20 - Added pyridium 100 mg TIDPC for 2 days for symptom relief Ppx: DVT: Heparin 5000 units Q12H GI: Protonix 40 mg PO daily Labs: CBC/ CMP Q2D Mag/Phs Q4D Diabetic Diet Patient may shower PT/OT: f/u recs for d/c recs for 09/04; percocet 5/325 X2 tabs daily 30 mins prior physical therapy Dispo: pt without insurance and undocumented citizen, pending medicaid acceptance. Likely to stay for duration of antibiotic tx course, 6 week completion day 09/04. Obtained MRI of lumbar today, will access abscess. Patient is requesting wheelchair upon discharge, per social unable obtain provide through chairity. Will provide script for wheelchair. Spoke with last week and she understood and agreed with plan. <Galen Alston H - Last Filed: 09/03/18 15:15> Objective - Vital Signs/Intake and Output Vital Signs (last 24 hours): Temp Pulse Resp BP Pulse Ox 98.2 F 88 20 154/84 H 97 09/03/18 07:50 09/03/18 07:50 09/03/18 07:50 09/03/18 09:43 09/03/18 07:50 Intake and Output: 09/03/18 09/03/18 06:59 18:59 Intake Total 450 350 Balance 450 350 - Medications Medications: Current Medications Acetaminophen (Tylenol 325mg Tab) 650 mg PO Q6 PRN PRN Reason: Fever >100.4 or Pain Last Admin: 09/03/18 09:50 Dose: 650 mg Amlodipine Besylate (Norvasc) 10 mg PO DAILY [facility] Last Admin: 09/03/18 09:43 Dose: 10 mg Aspirin (Ecotrin) 81 mg PO DAILY [facility] Last Admin: 09/03/18 09:44 Dose: 81 mg Docusate Sodium (Colace) 100 mg PO TID [facility] Last Admin: 09/03/18 13:19 Dose: 100 mg Enalapril Maleate (Vasotec) 40 mg PO DAILY [facility] Last Admin: 09/03/18 09:43 Dose: 40 mg Famotidine (Pepcid) 20 mg PO DAILY [facility] Last Admin: 09/03/18 09:43 Dose: 20 mg Ferrous Sulfate (Feosol) 325 mg PO TID [facility] Last Admin: 09/03/18 13:19 Dose: 325 mg Finasteride (Proscar) 5 mg PO DAILY [facility] Last Admin: 09/03/18 09:43 Dose: 5 mg Gabapentin (Neurontin) 200 mg PO TID [facility] Last Admin: 09/03/18 13:19 Dose: 200 mg Heparin Sodium (Porcine) (Heparin) 5,000 units SC BID [facility] Last Admin: 09/03/18 09:44 Dose: 5,000 units Cefazolin Sodium 2,000 mg/ (Sodium Chloride) 50 mls @ 100 mls/hr IVPB Q8H [facility]; Protocol Last Admin: 09/03/18 10:00 Dose: 100 mls/hr Insulin Glargine (Lantus) 30 unit SC DAILY [facility] Last Admin: 09/03/18 09:42 Dose: 30 units Insulin Human Regular (Novolin R) 0 unit SC ACHS [facility]; Protocol Last Admin: 09/03/18 11:35 Dose: 3 units Lactobacillus Acidophilus (Bacid Acidophilus) 1 cap PO BID [facility] Last Admin: 09/03/18 09:50 Dose: 1 cap Lidocaine (Lidoderm) 1 ea TD DAILY [facility] Last Admin: 09/03/18 09:42 Dose: 1 ea Metoprolol Succinate (Toprol Xl) 50 mg PO DAILY [facility] Last Admin: 09/03/18 09:43 Dose: 50 mg Mupirocin (Bactroban Ointment) 0 gm TOP DAILY [facility] Last Admin: 09/03/18 09:45 Dose: 1 applic Oxycodone/Acetaminophen (Percocet 5/325 Mg Tab) 1 tab PO DAILY PRN PRN Reason: Pain, moderate (4-7) Stop: 12/13/18 16:29 Polyethylene Glycol (Miralax) 17 gm PO MWF [facility] Last Admin: 09/02/18 10:04 Dose: Not Given Tamsulosin HCl (Flomax) 0.4 mg PO BID [facility] Last Admin: 09/03/18 09:44 Dose: 0.4 mg Vitamin A (Vitamin A & D Oint Ud Foilpak) 1 ea TOP BID [facility] Last Admin: 09/03/18 09:59 Dose: 1 ea - Labs Labs: 09/03/18 06:18 09/03/18 06:18 PT 15.6 SECONDS (9.7-12.2) H 07/21/18 20:28 INR 1.4 07/21/18 20:28 APTT 34 SECONDS (21-34) 07/21/18 20:28 Attending/Attestation - Attestation I have personally seen and examined this patient.: Yes I have fully participated in the care of the patient.: Yes I have reviewed all pertinent clinical information, including history, physical exam and plan: Yes Notes (Text): 09/03/18 15:12 Medical attending: Patient was seen and examined by me earlier in the morning with the medical residents. At that time he had not yet had the MRI of the LS done, later it was done today and read by radiology Will need further clarification if the patient can be discharged tommorow or not. When we spoke with the patient today he is aware he maybe leaving, we are still trying to see if he can have a wheelchar to go with Galen Alsotn
[2018-09-03 07:32] LABS: ALB/GLOB RATIO 0.7 (1.0-2.1); ALBUMIN 2.9 g/dL (3.5-5.0); ALT/SGPT 10 U/L (21-72); AST/SGOT 18 U/L (17-59); BLOOD UREA NITROGEN 22 mg/dL (9-20); CALCIUM 8.6 mg/dl (8.6-10.4); GFR NON-AFRICAN AMERICAN > 60
[2018-09-03] MEDS: (Novolin R) Insulin Human Regular 100 units/ml vial SC SCH ×4 (08:33→21:34)
[2018-09-03] MEDS: Lidocaine 5% Patch TD SCH (09:42)
[2018-09-03] MEDS: (Lantus) Insulin Glargine, Recombinant SC SCH (09:42)
[2018-09-03] MEDS: Metoprolol Succinate 50 mg XL Tab PO SCH (09:43)
[2018-09-03] MEDS: Lactobacillus Acidophilus 500 MU Cap PO SCH ×2 (09:50→17:37)
[2018-09-03] MEDS: Vitamins A & D Oint UD Foilpak TOP SCH ×2 (09:59→17:35)
--- NOTE | 2018-09-03 13:30 | MRI ---
Date of service: 09/03/2018. PROCEDURE: MR LUMBAR SPINE WITHOUT CONTRAST. HISTORY: Previous back abscess f/u resolution COMPARISON: Made with prior the MRI of the lumbar spine dated 07/30/2018. TECHNIQUE: Multiecho multiplanar sequences were performed through the lumbar spine without the use of intravenous contrast. FINDINGS: There has been interval progression of edema within the L4 and L5 vertebral body segments. In addition, mild localized destructive changes along the anterior slight progression of disc space narrowing. Increased persistent slight increased disc space water. Collectively the findings are consistent with discitis osteomyelitis. Persistent presumed epidural of phlegmonous changes seen emanating from the disc space extending superiorly and inferiorly over short distance from approximately the inferior aspect of the L3-L4 disc space 2 the mid to upper 1/3-1/2 of the L5 vertebral body level with compressive effects on the ventral surface of the thecal sac centrally and to the right along its superior border midline at the L4-L5 disc space level and centrally into the left more inferiorly located at the upper/1/3-1/2 of the L5 vertebral body segment. Overall this phlegmonous change has receded particularly along its superior margin. However there is persistent compressive effects on the ventral surface of the thecal sac and posterior displacement of the ventrally located intrathecal nerve roots of the cauda equina along its superior margin more so on the right and centrally and to the left along its inferior border. There also appears to be paraspinal soft tissue extension of phlegmonous changes maximally at the L4-L5 disc space and tapering of above and below this level. Facet arthropathy L4-L5 S1 through the L2-L3 levels in decreasing order of severity. There is also disc desiccation of and minor broad-based bulge of the posterior annulus seen at the L3-L4 level. OTHER FINDINGS: Conus terminates at approximately the T12-L1 level IMPRESSION: Discitis-osteomyelitis seen at the L4-L5 level. There has been interval progression of edema within the vertebral bodies however the epidural phlegmonous changes appear to have diminished slightly. There also appears to be paraspinal soft tissue extension of phlegmonous changes maximally at the L4-L5 disc space and tapering of above and below this level. The phlegmonous changes do exert compressive effects on the ventral surface of the thecal sac with variable posterior displacement of the ventrally located intrathecal nerve roots of the cauda equina more so centrally and to the right along the superior border and to the centrally and to the left along its inferior border as detailed above..
--- NOTE | 2018-09-04 07:11 | CP.PCM.PN ---
<Rodriguez An - Last Filed: 09/04/18 12:18> Subjective - Date & Time of Evaluation Date of Evaluation: 09/04/18 Time of Evaluation: 07:00 - Subjective Subjective: PGY 1 Medicine Progress note for Hospitalist Dr. Alston. Patient seen and examined at bedside. No overnight events reported. Patient lying in bed, no acute distress. Patient reports this morning his back pain is still present; however, it is much improved compared to yesterday. Pt offers no other complaints. Patient denies chest pain, SOB, nausea, vomiting, fevers, chills, dysuria, hematuria. Patient had MRI yesterday showing persistent osteomyelitis along with phlegmonous changes in L4-L5 area. . Objective - Vital Signs/Intake and Output Vital Signs (last 24 hours): Temp Pulse Resp BP Pulse Ox 98.1 F 90 20 149/72 98 09/04/18 00:00 09/04/18 00:00 09/04/18 00:00 09/04/18 00:00 09/04/18 00:00 Intake and Output: 09/04/18 09/04/18 06:59 18:59 Intake Total 1230 Output Total 1000 Balance 230 - Medications Medications: Current Medications Acetaminophen (Tylenol 325mg Tab) 650 mg PO Q6 PRN PRN Reason: Fever >100.4 or Pain Last Admin: 09/03/18 09:50 Dose: 650 mg Amlodipine Besylate (Norvasc) 10 mg PO DAILY [facility] Last Admin: 09/03/18 09:43 Dose: 10 mg Aspirin (Ecotrin) 81 mg PO DAILY [facility] Last Admin: 09/03/18 09:44 Dose: 81 mg Docusate Sodium (Colace) 100 mg PO TID [facility] Last Admin: 09/03/18 17:38 Dose: 100 mg Enalapril Maleate (Vasotec) 40 mg PO DAILY [facility] Last Admin: 09/03/18 09:43 Dose: 40 mg Famotidine (Pepcid) 20 mg PO DAILY [facility] Last Admin: 09/03/18 09:43 Dose: 20 mg Ferrous Sulfate (Feosol) 325 mg PO TID [facility] Last Admin: 09/03/18 17:38 Dose: 325 mg Finasteride (Proscar) 5 mg PO DAILY [facility] Last Admin: 09/03/18 09:43 Dose: 5 mg Gabapentin (Neurontin) 200 mg PO TID [facility] Last Admin: 09/03/18 17:37 Dose: 200 mg Heparin Sodium (Porcine) (Heparin) 5,000 units SC BID [facility] Last Admin: 09/03/18 17:38 Dose: 5,000 units Cefazolin Sodium 2,000 mg/ (Sodium Chloride) 50 mls @ 100 mls/hr IVPB Q8H [facility]; Protocol Last Admin: 09/04/18 02:29 Dose: 100 mls/hr Insulin Glargine (Lantus) 30 unit SC DAILY [facility] Last Admin: 09/03/18 09:42 Dose: 30 units Insulin Human Regular (Novolin R) 0 unit SC ACHS [facility]; Protocol Last Admin: 09/03/18 21:34 Dose: 2 units Lactobacillus Acidophilus (Bacid Acidophilus) 1 cap PO BID [facility] Last Admin: 09/03/18 17:37 Dose: 1 cap Lidocaine (Lidoderm) 1 ea TD DAILY [facility] Last Admin: 09/03/18 09:42 Dose: 1 ea Metoprolol Succinate (Toprol Xl) 50 mg PO DAILY [facility] Last Admin: 09/03/18 09:43 Dose: 50 mg Mupirocin (Bactroban Ointment) 0 gm TOP DAILY [facility] Last Admin: 09/03/18 09:45 Dose: 1 applic Oxycodone/Acetaminophen (Percocet 5/325 Mg Tab) 1 tab PO DAILY PRN PRN Reason: Pain, moderate (4-7) Stop: 09/05/18 16:29 Polyethylene Glycol (Miralax) 17 gm PO MWF [facility] Last Admin: 09/02/18 10:04 Dose: Not Given Tamsulosin HCl (Flomax) 0.4 mg PO BID [facility] Last Admin: 09/03/18 17:37 Dose: 0.4 mg Vitamin A (Vitamin A & D Oint Ud Foilpak) 1 ea TOP BID [facility] Last Admin: 09/03/18 17:35 Dose: 1 ea - Labs Labs: 09/03/18 06:18 09/03/18 06:18 PT 15.6 SECONDS (9.7-12.2) H 07/21/18 20:28 INR 1.4 07/21/18 20:28 APTT 34 SECONDS (21-34) 07/21/18 20:28 - Constitutional Appears: Non-toxic, No Acute Distress - Head Exam Head Exam: NORMAL INSPECTION - Eye Exam Eye Exam: Normal appearance Pupil Exam: NORMAL ACCOMODATION - ENT Exam ENT Exam: Mucous Membranes Moist Additional comments: ulcerative lesion on the L nare and L malar region, erythema with slight granulation tissue. no drainage noted. cartilage visible. No active bleeding, or signs of infection. - Neck Exam Neck Exam: absent: Lymphadenopathy, Thyromegaly - Respiratory Exam Respiratory Exam: Clear to Ausculation Bilateral, NORMAL BREATHING PATTERN. absent: Rales, Rhonchi, Wheezes - Cardiovascular Exam Cardiovascular Exam: +S1, +S2 - GI/Abdominal Exam GI & Abdominal Exam: Soft, Normal Bowel Sounds. absent: Firm, Guarding, Rigid - Extremities Exam Extremities Exam: Full ROM. absent: Calf Tenderness, Pedal Edema Additional comments: Bilateral BKA, full ROM. No edema or tenderness. - Back Exam Back Exam: paraspinal tenderness. absent: CVA tenderness (L), CVA tenderness (R) - Neurological Exam Neurological Exam: Alert, Awake, Oriented x3 - Psychiatric Exam Psychiatric exam: Normal Affect, Normal Mood Assessment and Plan - Assessment and Plan (Free Text) Assessment: 53 yo male with a history of uncontrolled T2DM (s/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 Patient's blood cultures are positive for Staph aureus, currently being treated for bacteremia & discitis & spinal abscess Plan: Epidural Abscess Back pain - Initial MRI L-spine: suspicious for discitis osteomyelitis involving L4-5 intervetebral disc w/ anterior epidural abscess, R iliopsoas fluid collection 1.5x1.9cm - Repeat MRI: Discitis-osteomyelitis seen at the L4-L5 level. There has been interval progression of edema within the vertebral bodies however the epidural phlegmonous changes appear to have diminished slightly. There also appears to be paraspinal soft tissue extension of phlegmonous changes maximally at the L4- L5 disc space and tapering of above and below this level. The phlegmonous changes do exert compressive effects on the ventral surface of the thecal sac with variable posterior displacement of the ventrally located intrathecal nerve roots of the cauda equina more so centrally and to the right along the superior border and to the centrally and to the left along its inferior border as detailed above. - Reconsult neurosurgery, Dr. Ne recs for possible surgical intervention - previous consult required no surgical intervention - Per ID, Dr. Garcia recs - Continue ancef 2000mg IV q8h since 07/25/18 - F/u IR, Dr. Fragoso recs: - psoas collection and spinal abscess too small to drain - F/u NeuroSx, Dr. Olivia recs: - no intervention at this time - naproxen 550mg PO q12h PRN - percocet 5/325 X2 tabs daily 30 mins prior physical therapy Anemia - likely of chronic disease - Hgb stable in 8s - patient remains asymptomatic - will continue to monitor L Maxillofacial Ulcer - CT 07/25: soft tissue swelling, no osteomyelitis or drainable fluid - Covered w/ ancef 2000mg IV q8h (07/25) for epidural abscess - Will be on 6-8 week course antibiotic treatment, as per ID for epidural abscess - mupirocin 2g top BID - wound care consulted - Pt following up with plastic surgeon at [facility] sep 04 - Patient has contact information - stable DM type 2 - A1c 8.9 - medium dose Novolin R ISS - blood sugars in 180s - lantus 30u SC daily (increased from 25 to 30 on 08/13) - Hypoglycemia protocol - Accuchecks ACHS - despite persistent education of no sweet/sugar filled drinks, patient continues to have juices at bedside - Diabetic diet education referral HTN - patient initially HTN in 160s to 170s, now 130s to 150s - ASA 81 mg PO daily - Enalapril 30 mg PO daily - Metoprolol succinate 50 mg PO daily - Norvasc 10mg PO daily Urinary Retention Resolved - CT A/P: bladder wall thickening (cystitis), b/l renal parenchymal high density may be underlying metabolic disorder - I/Os - sagastume catheter (07/27) - flomax 0.4mg PO BID - finasteride 5mg PO daily - Urology consulted: Titi Kam - maintain sagastume until outpatient follow - Sagastume D/C'ed @ 10 AM on 08/13, patient has been urinating freely CAP Resolved - CXR 08/06: no active disease - CT A/P: LLL consolidation vs atelectasis - ancef 2000mg IV q8h (07/25) Staph Aureus Bacteremia: Resolved - Initially: Blood Cx positive for Staph aureus (07/21); F/u Blood Cx negative 07/28 X 5 days - Urine Cx: no growth - Procal 14.74, Tmax 100.8 (08/01) - Tylenol 650 mg PO Q6H PRN - Echo: LV normal size and EF. LA mildly dilated. Mild TR - F/u cardio, Dr. Ge recs: - consider KASH if BCx+ in future, signed off - F/u ID, Dr. Garcia recs: - 6-8 week course antibiotic treatment, as per ID - ancef 2000mg IV q8h (07/25), as per ID - likely source: spinal abscess Unresponsiveness Resolved AAOx3 Previously - Code stroke - EEG: nonspecific abnormalities, no seizures noted - CT head: no acute findings - CTA head and neck: no significant stenoses or abnormalities - PRL wnl (12.9) - Gabapentin 100 mg PO TID - Neurology consulted: Manda - no need for anticonvulsant at this time Dysuria Resolved - burning on urination since last night - UA - leuko esterase 2+, WBC 50, squamous 1+ - UC - yeast species > [id number] cfu/ml - fluconazole 100 mg PO daily - continue for 4 more days as patients symptoms are improving - bladder scan revealed < 200 ml urine 08/20 - Added pyridium 100 mg TIDPC for 2 days for symptom relief Ppx: DVT: Heparin 5000 units Q12H GI: Protonix 40 mg PO daily Labs: CBC/ CMP Q2D Mag/Phs Q4D Diabetic Diet Patient may shower PT/OT: f/u recs for d/c recs for 09/04; percocet 5/325 X2 tabs daily 30 mins prior physical therapy Dispo: pt without insurance and undocumented citizen, pending medicaid acceptance. Patient has recieved 6 week cours eof abx but still has persistence of osteomyolitis and will re-consult to neurosurgery for possible surgical intervention. Patient is requesting wheelchair upon discharge, per social unable obtain provide through [facility]. Will provide script for wheelchair. Spoke with last week and she understood and agreed with plan. <Galen Alston - Last Filed: 09/04/18 13:12> Objective - Vital Signs/Intake and Output Vital Signs (last 24 hours): Temp Pulse Resp BP Pulse Ox 97.6 F 83 20 155/76 H 99 09/04/18 07:37 09/04/18 07:37 09/04/18 07:37 09/04/18 09:16 09/04/18 07:37 Intake and Output: 09/04/18 09/04/18 06:59 18:59 Intake Total 1230 Output Total 1000 Balance 230 - Medications Medications: Current Medications Acetaminophen (Tylenol 325mg Tab) 650 mg PO Q6 PRN PRN Reason: Fever >100.4 or Pain Last Admin: 09/03/18 09:50 Dose: 650 mg Amlodipine Besylate (Norvasc) 10 mg PO DAILY [facility] Last Admin: 09/04/18 09:18 Dose: 10 mg Aspirin (Ecotrin) 81 mg PO DAILY [facility] Last Admin: 09/04/18 09:18 Dose: 81 mg Docusate Sodium (Colace) 100 mg PO TID [facility] Last Admin: 09/04/18 09:18 Dose: 100 mg Enalapril Maleate (Vasotec) 40 mg PO DAILY [facility] Last Admin: 09/04/18 09:16 Dose: 40 mg Famotidine (Pepcid) 20 mg PO DAILY [facility] Last Admin: 09/04/18 09:18 Dose: 20 mg Ferrous Sulfate (Feosol) 325 mg PO TID [facility] Last Admin: 09/04/18 09:34 Dose: 325 mg Finasteride (Proscar) 5 mg PO DAILY [facility] Last Admin: 09/03/18 09:43 Dose: 5 mg Gabapentin (Neurontin) 200 mg PO TID [facility] Last Admin: 09/04/18 09:19 Dose: 200 mg Heparin Sodium (Porcine) (Heparin) 5,000 units SC BID [facility] Last Admin: 09/04/18 09:17 Dose: 5,000 units Cefazolin Sodium 2,000 mg/ (Sodium Chloride) 50 mls @ 100 mls/hr IVPB Q8H [facility]; Protocol Last Admin: 09/04/18 11:38 Dose: 100 mls/hr Insulin Glargine (Lantus) 30 unit SC DAILY [facility] Last Admin: 09/04/18 09:17 Dose: 30 units Insulin Human Regular (Novolin R) 0 unit SC ACHS [facility]; Protocol Last Admin: 09/04/18 12:00 Dose: 3 units Lactobacillus Acidophilus (Bacid Acidophilus) 1 cap PO BID [facility] Last Admin: 09/04/18 09:18 Dose: 1 cap Lidocaine (Lidoderm) 1 ea TD DAILY [facility] Last Admin: 09/04/18 09:19 Dose: 1 ea Metoprolol Succinate (Toprol Xl) 50 mg PO DAILY [facility] Last Admin: 09/04/18 09:18 Dose: 50 mg Mupirocin (Bactroban Ointment) 0 gm TOP DAILY [facility] Last Admin: 09/04/18 09:37 Dose: 1 applic Oxycodone/Acetaminophen (Percocet 5/325 Mg Tab) 1 tab PO DAILY PRN PRN Reason: Pain, moderate (4-7) Stop: 09/05/18 16:29 Polyethylene Glycol (Miralax) 17 gm PO MWF [facility] Last Admin: 09/04/18 08:36 Dose: 17 gm Tamsulosin HCl (Flomax) 0.4 mg PO BID [facility] Last Admin: 09/04/18 09:18 Dose: 0.4 mg Vitamin A (Vitamin A & D Oint Ud Foilpak) 1 ea TOP BID [facility] Last Admin: 09/04/18 09:17 Dose: 1 ea - Labs Labs: 09/03/18 06:18 09/03/18 06:18 PT 15.6 SECONDS (9.7-12.2) H 07/21/18 20:28 INR 1.4 07/21/18 20:28 APTT 34 SECONDS (21-34) 07/21/18 20:28 Attending/Attestation - Attestation I have personally seen and examined this patient.: Yes I have fully participated in the care of the patient.: Yes I have reviewed all pertinent clinical information, including history, physical exam and plan: Yes Notes (Text): 09/04/18 13:03 Medical attending: Patient was seen and examined by me. Agree with the above note by the resident The patient was not in any acute distress this morning He had the MRI of the LS yesterday, because of the results ID has asked the neurosurgery see what their thoughts are on the result of the MRI In the mean time he remains on the IV abx. Galen Alston
[2018-09-04] MEDS: (Novolin R) Insulin Human Regular 100 units/ml vial SC SCH ×4 (08:00→21:31)
[2018-09-04] MEDS: POLYETHYLENE GLYCOL 3350 17 GM/Dose PACKET PO SCH (08:36)
[2018-09-04] MEDS: (Lantus) Insulin Glargine, Recombinant SC SCH (09:17)
[2018-09-04] MEDS: Vitamins A & D Oint UD Foilpak TOP SCH ×2 (09:17→20:20)
[2018-09-04] MEDS: Metoprolol Succinate 50 mg XL Tab PO SCH (09:18)
[2018-09-04] MEDS: Lactobacillus Acidophilus 500 MU Cap PO SCH ×2 (09:18→18:00)
[2018-09-04] MEDS: Lidocaine 5% Patch TD SCH (09:19)
--- NOTE | 2018-09-04 18:53 | CP.PCM.PN ---
Subjective - Date & Time of Evaluation Date of Evaluation: 09/04/18 Time of Evaluation: 09:00 - Subjective Subjective: discussed reno rounds patient still c/o back pain denies fever awake and alert Objective - Vital Signs/Intake and Output Vital Signs (last 24 hours): Temp Pulse Resp BP Pulse Ox 97.6 F 83 20 155/76 H 99 09/04/18 07:37 09/04/18 07:37 09/04/18 07:37 09/04/18 09:16 09/04/18 07:37 Intake and Output: 09/04/18 09/04/18 06:59 18:59 Intake Total 1230 350 Output Total 1000 Balance 230 350 - Medications Medications: Current Medications Acetaminophen (Tylenol 325mg Tab) 650 mg PO Q6 PRN PRN Reason: Fever >100.4 or Pain Last Admin: 09/03/18 09:50 Dose: 650 mg Amlodipine Besylate (Norvasc) 10 mg PO DAILY [facility] Last Admin: 09/04/18 09:18 Dose: 10 mg Aspirin (Ecotrin) 81 mg PO DAILY [facility] Last Admin: 09/04/18 09:18 Dose: 81 mg Docusate Sodium (Colace) 100 mg PO TID [facility] Last Admin: 09/04/18 17:57 Dose: 100 mg Enalapril Maleate (Vasotec) 40 mg PO DAILY [facility] Last Admin: 09/04/18 09:16 Dose: 40 mg Famotidine (Pepcid) 20 mg PO DAILY [facility] Last Admin: 09/04/18 09:18 Dose: 20 mg Ferrous Sulfate (Feosol) 325 mg PO TID [facility] Last Admin: 09/04/18 17:59 Dose: 325 mg Finasteride (Proscar) 5 mg PO DAILY [facility] Last Admin: 09/04/18 10:30 Dose: 5 mg Gabapentin (Neurontin) 200 mg PO TID [facility] Last Admin: 09/04/18 14:59 Dose: 200 mg Heparin Sodium (Porcine) (Heparin) 5,000 units SC BID [facility] Last Admin: 09/04/18 18:00 Dose: 5,000 units Cefazolin Sodium 2,000 mg/ (Sodium Chloride) 50 mls @ 100 mls/hr IVPB Q8H [facility]; Protocol Last Admin: 09/04/18 11:38 Dose: 100 mls/hr Insulin Glargine (Lantus) 30 unit SC DAILY [facility] Last Admin: 09/04/18 09:17 Dose: 30 units Insulin Human Regular (Novolin R) 0 unit SC ACHS [facility]; Protocol Last Admin: 09/04/18 18:02 Dose: 2 units Lactobacillus Acidophilus (Bacid Acidophilus) 1 cap PO BID [facility] Last Admin: 09/04/18 09:18 Dose: 1 cap Lidocaine (Lidoderm) 1 ea TD DAILY [facility] Last Admin: 09/04/18 09:19 Dose: 1 ea Metoprolol Succinate (Toprol Xl) 50 mg PO DAILY [facility] Last Admin: 09/04/18 09:18 Dose: 50 mg Mupirocin (Bactroban Ointment) 0 gm TOP DAILY [facility] Last Admin: 09/04/18 09:37 Dose: 1 applic Oxycodone/Acetaminophen (Percocet 5/325 Mg Tab) 1 tab PO DAILY PRN PRN Reason: Pain, moderate (4-7) Stop: 09/05/18 16:29 Polyethylene Glycol (Miralax) 17 gm PO MWF [facility] Last Admin: 09/04/18 08:36 Dose: 17 gm Tamsulosin HCl (Flomax) 0.4 mg PO BID [facility] Last Admin: 09/04/18 17:57 Dose: 0.4 mg Vitamin A (Vitamin A & D Oint Ud Foilpak) 1 ea TOP BID [facility] Last Admin: 09/04/18 09:17 Dose: 1 ea - Labs Labs: 09/03/18 06:18 09/03/18 06:18 PT 15.6 SECONDS (9.7-12.2) H 07/21/18 20:28 INR 1.4 07/21/18 20:28 APTT 34 SECONDS (21-34) 07/21/18 20:28 - Constitutional Appears: Non-toxic, Chronically Ill - Head Exam Additional comments: left nasal defect + - Eye Exam Eye Exam: PERRL. absent: Scleral icterus - ENT Exam ENT Exam: Mucous Membranes Dry - Neck Exam Neck Exam: absent: Lymphadenopathy - Respiratory Exam Respiratory Exam: Decreased Breath Sounds - Cardiovascular Exam Cardiovascular Exam: REGULAR RHYTHM - GI/Abdominal Exam GI & Abdominal Exam: Distended, Soft - Rectal Exam Rectal Exam: Deferred - Exam Exam: NORMAL INSPECTION - Extremities Exam Additional comments: bilat aka - Back Exam Back Exam: absent: CVA tenderness (L), CVA tenderness (R) - Neurological Exam Neurological Exam: Alert, Awake Assessment and Plan (1) Respiratory failure Status: Acute (2) Toxic metabolic encephalopathy Status: Acute (3) Acute hyperglycemia Status: Acute (4) Sepsis Status: Acute (5) Sepsis affecting skin Status: Acute (6) Diskitis Status: Acute (7) Spinal epidural abscess Status: Acute - Assessment and Plan (Free Text) Assessment: MRI noted- shows phlegmon compressing dura cont IV antibiotics Neurosurg re-eval ? decompression / drainage
[2018-09-05 06:50] LABS: BASO % 0.6 % (0.0-2.0); EOS # 0.4 K/uL (0.0-0.7); LYMPH # 1.6 K/uL (1.0-4.3)
[2018-09-05 06:54] LABS: EOS % 5.4 % (0.0-4.0); HEMOGLOBIN 8.3 g/dL (12.0-18.0); MEAN CELL VOLUME 87.4 fL (80.0-94.0); MEAN CORPUSCULAR HEMOGLOBIN 30.1 pg (27.0-31.0); MEAN CORPUSCULAR HGB CONC 34.4 g/dL (33.0-37.0); MEAN PLATELET VOLUME 8.7 fL (7.2-11.7); MONO # 0.5 K/uL (0.0-0.8); MONO % 7.9 % (0.0-10.0); NEUT # 4.2 K/uL (1.8-7.0); NEUT % 62.1 % (50.0-75.0); NRBC % 0.1 % (0.0-2.0); RBC 2.78 Mil/uL (4.40-5.90); WHITE BLOOD COUNT 6.7 K/uL (4.8-10.8)
[2018-09-05 07:27] LABS: ALB/GLOB RATIO 0.7 (1.0-2.1); ALT/SGPT 9 U/L (21-72); AST/SGOT 18 U/L (17-59); BLOOD UREA NITROGEN 24 mg/dL (9-20); CALCIUM 8.6 mg/dl (8.6-10.4); GFR NON-AFRICAN AMERICAN > 60
[2018-09-05] MEDS: (Novolin R) Insulin Human Regular 100 units/ml vial SC SCH ×4 (07:47→21:21)
[2018-09-05] MEDS: Metoprolol Succinate 50 mg XL Tab PO SCH (09:39)
[2018-09-05] MEDS: Lactobacillus Acidophilus 500 MU Cap PO SCH ×2 (09:39→18:20)
[2018-09-05] MEDS: Vitamins A & D Oint UD Foilpak TOP SCH ×2 (09:40→18:20)
[2018-09-05] MEDS: Lidocaine 5% Patch TD SCH (09:44)
[2018-09-05] MEDS: (Lantus) Insulin Glargine, Recombinant SC SCH (09:48)
--- NOTE | 2018-09-05 09:58 | CP.PCM.PN ---
<Jackeline Rayo - Last Filed: 09/05/18 14:16> Subjective - Date & Time of Evaluation Date of Evaluation: 09/05/18 Time of Evaluation: 10:00 - Subjective Subjective: Patient examined at bedside. No acute events overnight. Pt discussion was had with pt regarding the decision to continue treatment on PO Abx outpatient as bloodwork and MRI findings were unchanged since initiating treatment nearly 7 weeks ago. Patient reports he wants to stay until tomorrow afternoon as his is working and unable to get him. Patient requests a prescription be written stating his dates of admission to hospital and diagnosis. Pt requests h e receive free Abx until able to follow up in clinic next week. Pt expressed he is more comfortable here in hospital as there is no one at him to care for him; however once explained that was not an indication to stay admitted, pt understood. Denies chest pain, SOB, nausea, diarrhea. Reports continued body aches, greatest in back Objective - Vital Signs/Intake and Output Vital Signs (last 24 hours): Temp Pulse Resp BP Pulse Ox 97.8 F 83 20 161/80 H 97 09/05/18 07:50 09/05/18 07:50 09/05/18 07:50 09/05/18 09:43 09/05/18 07:50 Intake and Output: 09/05/18 09/05/18 06:59 18:59 Intake Total 300 Output Total 550 Balance -250 - Medications Medications: Current Medications Acetaminophen (Tylenol 325mg Tab) 650 mg PO Q6 PRN PRN Reason: Fever >100.4 or Pain Last Admin: 09/03/18 09:50 Dose: 650 mg Amlodipine Besylate (Norvasc) 10 mg PO DAILY [facility] Last Admin: 09/05/18 09:39 Dose: 10 mg Aspirin (Ecotrin) 81 mg PO DAILY [facility] Last Admin: 09/05/18 09:40 Dose: 81 mg Docusate Sodium (Colace) 100 mg PO TID [facility] Last Admin: 09/05/18 09:39 Dose: 100 mg Enalapril Maleate (Vasotec) 40 mg PO DAILY [facility] Last Admin: 09/05/18 09:43 Dose: 40 mg Famotidine (Pepcid) 20 mg PO DAILY [facility] Last Admin: 09/05/18 09:43 Dose: 20 mg Ferrous Sulfate (Feosol) 325 mg PO TID [facility] Last Admin: 09/05/18 09:39 Dose: 325 mg Finasteride (Proscar) 5 mg PO DAILY [facility] Last Admin: 09/05/18 09:40 Dose: 5 mg Gabapentin (Neurontin) 200 mg PO TID [facility] Last Admin: 09/05/18 09:43 Dose: 200 mg Heparin Sodium (Porcine) (Heparin) 5,000 units SC BID [facility] Last Admin: 09/05/18 09:40 Dose: 5,000 units Cefazolin Sodium 2,000 mg/ (Sodium Chloride) 50 mls @ 100 mls/hr IVPB Q8H [facility]; Protocol Last Admin: 09/05/18 02:59 Dose: 100 mls/hr Insulin Glargine (Lantus) 30 unit SC DAILY [facility] Last Admin: 09/05/18 09:48 Dose: 30 units Insulin Human Regular (Novolin R) 0 unit SC ACHS [facility]; Protocol Last Admin: 09/05/18 07:47 Dose: Not Given Lactobacillus Acidophilus (Bacid Acidophilus) 1 cap PO BID [facility] Last Admin: 09/05/18 09:39 Dose: 1 cap Lidocaine (Lidoderm) 1 ea TD DAILY [facility] Last Admin: 09/05/18 09:44 Dose: 1 ea Metoprolol Succinate (Toprol Xl) 50 mg PO DAILY [facility] Last Admin: 09/05/18 09:39 Dose: 50 mg Mupirocin (Bactroban Ointment) 0 gm TOP DAILY [facility] Last Admin: 09/04/18 09:37 Dose: 1 applic Oxycodone/Acetaminophen (Percocet 5/325 Mg Tab) 1 tab PO DAILY PRN PRN Reason: Pain, moderate (4-7) Stop: 09/05/18 16:29 Polyethylene Glycol (Miralax) 17 gm PO MWF [facility] Last Admin: 09/04/18 08:36 Dose: 17 gm Tamsulosin HCl (Flomax) 0.4 mg PO BID [facility] Last Admin: 09/05/18 09:39 Dose: 0.4 mg Vitamin A (Vitamin A & D Oint Ud Foilpak) 1 ea TOP BID [facility] Last Admin: 09/05/18 09:40 Dose: 1 ea - Labs Labs: 09/05/18 06:34 09/05/18 06:34 PT 15.6 SECONDS (9.7-12.2) H 07/21/18 20:28 INR 1.4 07/21/18 20:28 APTT 34 SECONDS (21-34) 07/21/18 20:28 - Constitutional Appears: Non-toxic, No Acute Distress - Head Exam Head Exam: NORMOCEPHALIC. absent: NORMAL INSPECTION Additional comments: left aditi nasal region bandages with scant blood. left lips and surrounding tissue pink with scant blood. no erythema/pus - Eye Exam Eye Exam: EOMI, Normal appearance - ENT Exam ENT Exam: Mucous Membranes Moist, Normal Exam - Neck Exam Neck Exam: Normal Inspection - Respiratory Exam Respiratory Exam: Clear to Ausculation Bilateral, NORMAL BREATHING PATTERN - Cardiovascular Exam Cardiovascular Exam: REGULAR RHYTHM, +S1, +S2 - GI/Abdominal Exam GI & Abdominal Exam: Soft. absent: Distended, Tenderness - Extremities Exam Extremities Exam: absent: Normal Inspection Additional comments: B/L BKAs - Neurological Exam Neurological Exam: Alert, Awake, Oriented x3 - Psychiatric Exam Psychiatric exam: Normal Affect, Normal Mood - Skin Skin Exam: Dry, Warm. 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 Intubated 2/2 respiratory distress and treated in ICU for staph bacteremia, facial ulcer, spinal osteomyelitis, with continued abx treatment on floor after successful extubation Plan: Discussion held with patient regarding his continued findings of osteomyelitis/discitis after IV Abx treatment and pt may benefit from continued PO abx treatment at home with close follow up in clinic. Osteomyelitis/Discitis -at L4/L5 with no change from prior exam -ESR 145, CRP >15, -IV abx -plan to d/c tmrw on PO abx, augmentin 875mg PO BID x14 days -plan to f/u in clinic next week -Dr. Jose AVILES Maxillofacial ulcer -wound care -mupirocin -pt appt w/ plastics at [facility] 10/09 -medication as ordered HTN -norvasc, metoprolol, enalapril, asa DM2 -hypoglycemia protocol -lantus, ISS -accuchecks achs -diabetic diet Ppx -heparin -lactobacillus Dispo: D/C home tomorrow w PO abx to follow up in clinic Discussed w/ Dr. Alston -Jackeline Rayo, PGY-1 <Galen Alston H - Last Filed: 09/05/18 16:40> Objective - Vital Signs/Intake and Output Vital Signs (last 24 hours): Temp Pulse Resp BP Pulse Ox 97.5 F L 85 20 136/70 96 09/05/18 15:30 09/05/18 15:30 09/05/18 15:30 09/05/18 15:30 09/05/18 15:30 Intake and Output: 09/05/18 09/05/18 06:59 18:59 Intake Total 300 Output Total 550 900 Balance -250 -900 - Medications Medications: Current Medications Acetaminophen (Tylenol 325mg Tab) 650 mg PO Q6 PRN PRN Reason: Fever >100.4 or Pain Last Admin: 09/03/18 09:50 Dose: 650 mg Amlodipine Besylate (Norvasc) 10 mg PO DAILY [facility] Last Admin: 09/05/18 09:39 Dose: 10 mg Aspirin (Ecotrin) 81 mg PO DAILY [facility] Last Admin: 09/05/18 09:40 Dose: 81 mg Docusate Sodium (Colace) 100 mg PO TID [facility] Last Admin: 09/05/18 14:28 Dose: 100 mg Enalapril Maleate (Vasotec) 40 mg PO DAILY [facility] Last Admin: 09/05/18 09:43 Dose: 40 mg Famotidine (Pepcid) 20 mg PO DAILY [facility] Last Admin: 09/05/18 09:43 Dose: 20 mg Ferrous Sulfate (Feosol) 325 mg PO TID [facility] Last Admin: 09/05/18 14:28 Dose: 325 mg Finasteride (Proscar) 5 mg PO DAILY [facility] Last Admin: 09/05/18 09:40 Dose: 5 mg Gabapentin (Neurontin) 200 mg PO TID [facility] Last Admin: 09/05/18 14:27 Dose: 200 mg Heparin Sodium (Porcine) (Heparin) 5,000 units SC BID [facility] Last Admin: 09/05/18 09:40 Dose: 5,000 units Cefazolin Sodium 2,000 mg/ (Sodium Chloride) 50 mls @ 100 mls/hr IVPB Q8H [facility]; Protocol Last Admin: 09/05/18 11:41 Dose: 100 mls/hr Insulin Glargine (Lantus) 30 unit SC DAILY [facility] Last Admin: 09/05/18 09:48 Dose: 30 units Insulin Human Regular (Novolin R) 0 unit SC ACHS [facility]; Protocol Last Admin: 09/05/18 11:43 Dose: 2 units Lactobacillus Acidophilus (Bacid Acidophilus) 1 cap PO BID [facility] Last Admin: 09/05/18 09:39 Dose: 1 cap Lidocaine (Lidoderm) 1 ea TD DAILY [facility] Last Admin: 09/05/18 09:44 Dose: 1 ea Metoprolol Succinate (Toprol Xl) 50 mg PO DAILY [facility] Last Admin: 09/05/18 09:39 Dose: 50 mg Mupirocin (Bactroban Ointment) 0 gm TOP DAILY [facility] Last Admin: 09/05/18 10:00 Dose: 1 applic Oxycodone/Acetaminophen (Percocet 5/325 Mg Tab) 1 tab PO DAILY PRN PRN Reason: Pain, moderate (4-7) Stop: 09/05/18 16:29 Polyethylene Glycol (Miralax) 17 gm PO MWF [facility] Last Admin: 09/04/18 08:36 Dose: 17 gm Tamsulosin HCl (Flomax) 0.4 mg PO BID [facility] Last Admin: 09/05/18 09:39 Dose: 0.4 mg Vitamin A (Vitamin A & D Oint Ud Foilpak) 1 ea TOP BID [facility] Last Admin: 09/05/18 09:40 Dose: 1 ea - Labs Labs: 09/05/18 06:34 09/05/18 06:34 PT 15.6 SECONDS (9.7-12.2) H 07/21/18 20:28 INR 1.4 07/21/18 20:28 APTT 34 SECONDS (21-34) 07/21/18 20:28 Attending/Attestation - Attestation I have personally seen and examined this patient.: Yes I have fully participated in the care of the patient.: Yes I have reviewed all pertinent clinical information, including history, physical exam and plan: Yes Notes (Text): Medical attending: Patient was seen with the medical front desk coordinator and also with the nursing staff today. I appreciate greatly their help with translation. Our conversation today with the patient was very long and we explained to him that we will try to discharge him tomorrow. We intially wanted to DC patient today however he asked to stay another day he explained because his has to work into the night. And so we will try to DC tommorow. He has been afebrile, WBC stable, and has almost been on IV abx for seven weeks now. As mentioned previously he had a repeat MRI which showed no change from the initial MRI. 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 He is worried about going home a nd wanted to stay for an infinite amount of time, considering everything he has been through with the bilateral AKA amputation, the facial/nasal/maxillary wounds, we explained to the patient that he has chronic situations that cannot be readily resolved and that we have been giving him a large amount of abx for a very long time. He has been very hemo-dynamically stable for a very very long time now. The patient last week it was explained to him and his that we would try to discharge this week. The patient this morning explained that he is not able to pay for potential oral abx. And we explained that we would be sending him home with a supply of abx. Last week there was also a question with regards to wheelchair and we will be providing him with a wheel chair to go with. Galen Alston
--- NOTE | 2018-09-05 14:45 | CP.PCM.PN ---
Subjective - Subjective Subjective: MRI NOT useful in f/u of osteomylitis/discitis- always worsens as Pt improves ESR is high at 145 do not see prior to compare prob req cont abcs untill ESR drops Objective - Vital Signs/Intake and Output Vital Signs (last 24 hours): Temp Pulse Resp BP Pulse Ox 97.8 F 83 20 161/80 H 97 09/05/18 07:50 09/05/18 07:50 09/05/18 07:50 09/05/18 09:43 09/05/18 07:50 Intake and Output: 09/05/18 09/05/18 06:59 18:59 Intake Total 300 Output Total 550 900 Balance -250 -900 - Medications Medications: Current Medications Acetaminophen (Tylenol 325mg Tab) 650 mg PO Q6 PRN PRN Reason: Fever >100.4 or Pain Last Admin: 09/03/18 09:50 Dose: 650 mg Amlodipine Besylate (Norvasc) 10 mg PO DAILY [facility] Last Admin: 09/05/18 09:39 Dose: 10 mg Aspirin (Ecotrin) 81 mg PO DAILY [facility] Last Admin: 09/05/18 09:40 Dose: 81 mg Docusate Sodium (Colace) 100 mg PO TID [facility] Last Admin: 09/05/18 09:39 Dose: 100 mg Enalapril Maleate (Vasotec) 40 mg PO DAILY [facility] Last Admin: 09/05/18 09:43 Dose: 40 mg Famotidine (Pepcid) 20 mg PO DAILY [facility] Last Admin: 09/05/18 09:43 Dose: 20 mg Ferrous Sulfate (Feosol) 325 mg PO TID [facility] Last Admin: 09/05/18 09:39 Dose: 325 mg Finasteride (Proscar) 5 mg PO DAILY [facility] Last Admin: 09/05/18 09:40 Dose: 5 mg Gabapentin (Neurontin) 200 mg PO TID [facility] Last Admin: 09/05/18 09:43 Dose: 200 mg Heparin Sodium (Porcine) (Heparin) 5,000 units SC BID [facility] Last Admin: 09/05/18 09:40 Dose: 5,000 units Cefazolin Sodium 2,000 mg/ (Sodium Chloride) 50 mls @ 100 mls/hr IVPB Q8H [facility]; Protocol Last Admin: 09/05/18 11:41 Dose: 100 mls/hr Insulin Glargine (Lantus) 30 unit SC DAILY [facility] Last Admin: 09/05/18 09:48 Dose: 30 units Insulin Human Regular (Novolin R) 0 unit SC ACHS [facility]; Protocol Last Admin: 09/05/18 11:43 Dose: 2 units Lactobacillus Acidophilus (Bacid Acidophilus) 1 cap PO BID [facility] Last Admin: 09/05/18 09:39 Dose: 1 cap Lidocaine (Lidoderm) 1 ea TD DAILY [facility] Last Admin: 09/05/18 09:44 Dose: 1 ea Metoprolol Succinate (Toprol Xl) 50 mg PO DAILY [facility] Last Admin: 09/05/18 09:39 Dose: 50 mg Mupirocin (Bactroban Ointment) 0 gm TOP DAILY [facility] Last Admin: 09/04/18 09:37 Dose: 1 applic Oxycodone/Acetaminophen (Percocet 5/325 Mg Tab) 1 tab PO DAILY PRN PRN Reason: Pain, moderate (4-7) Stop: 09/05/18 16:29 Polyethylene Glycol (Miralax) 17 gm PO MWF [facility] Last Admin: 09/04/18 08:36 Dose: 17 gm Tamsulosin HCl (Flomax) 0.4 mg PO BID [facility] Last Admin: 09/05/18 09:39 Dose: 0.4 mg Vitamin A (Vitamin A & D Oint Ud Foilpak) 1 ea TOP BID [facility] Last Admin: 09/05/18 09:40 Dose: 1 ea - Labs Labs: 09/05/18 06:34 09/05/18 06:34 PT 15.6 SECONDS (9.7-12.2) H 07/21/18 20:28 INR 1.4 07/21/18 20:28 APTT 34 SECONDS (21-34) 07/21/18 20:28
--- NOTE | 2018-09-05 18:29 | CP.PCM.PN ---
Subjective - Date & Time of Evaluation Date of Evaluation: 09/05/18 Time of Evaluation: 09:00 - Subjective Subjective: neurosurg follow up noted cont iv antibiotics as ordered Objective - Vital Signs/Intake and Output Vital Signs (last 24 hours): Temp Pulse Resp BP Pulse Ox 97.5 F L 85 20 136/70 96 09/05/18 15:30 09/05/18 15:30 09/05/18 15:30 09/05/18 15:30 09/05/18 15:30 Intake and Output: 09/05/18 09/05/18 06:59 18:59 Intake Total 300 Output Total 550 900 Balance -250 -900 - Medications Medications: Current Medications Acetaminophen (Tylenol 325mg Tab) 650 mg PO Q6 PRN PRN Reason: Fever >100.4 or Pain Last Admin: 09/03/18 09:50 Dose: 650 mg Amlodipine Besylate (Norvasc) 10 mg PO DAILY [facility] Last Admin: 09/05/18 09:39 Dose: 10 mg Aspirin (Ecotrin) 81 mg PO DAILY [facility] Last Admin: 09/05/18 09:40 Dose: 81 mg Docusate Sodium (Colace) 100 mg PO TID [facility] Last Admin: 09/05/18 18:20 Dose: 100 mg Enalapril Maleate (Vasotec) 40 mg PO DAILY [facility] Last Admin: 09/05/18 09:43 Dose: 40 mg Famotidine (Pepcid) 20 mg PO DAILY [facility] Last Admin: 09/05/18 09:43 Dose: 20 mg Ferrous Sulfate (Feosol) 325 mg PO TID [facility] Last Admin: 09/05/18 18:22 Dose: 325 mg Finasteride (Proscar) 5 mg PO DAILY [facility] Last Admin: 09/05/18 09:40 Dose: 5 mg Gabapentin (Neurontin) 200 mg PO TID [facility] Last Admin: 09/05/18 18:20 Dose: 200 mg Heparin Sodium (Porcine) (Heparin) 5,000 units SC BID [facility] Last Admin: 09/05/18 18:21 Dose: 5,000 units Cefazolin Sodium 2,000 mg/ (Sodium Chloride) 50 mls @ 100 mls/hr IVPB Q8H [facility]; Protocol Last Admin: 09/05/18 11:41 Dose: 100 mls/hr Insulin Glargine (Lantus) 30 unit SC DAILY [facility] Last Admin: 09/05/18 09:48 Dose: 30 units Insulin Human Regular (Novolin R) 0 unit SC ACHS [facility]; Protocol Last Admin: 09/05/18 17:10 Dose: 3 units Lactobacillus Acidophilus (Bacid Acidophilus) 1 cap PO BID [facility] Last Admin: 09/05/18 18:20 Dose: 1 cap Lidocaine (Lidoderm) 1 ea TD DAILY [facility] Last Admin: 09/05/18 09:44 Dose: 1 ea Metoprolol Succinate (Toprol Xl) 50 mg PO DAILY [facility] Last Admin: 09/05/18 09:39 Dose: 50 mg Mupirocin (Bactroban Ointment) 0 gm TOP DAILY [facility] Last Admin: 09/05/18 10:00 Dose: 1 applic Polyethylene Glycol (Miralax) 17 gm PO MWF [facility] Last Admin: 09/04/18 08:36 Dose: 17 gm Tamsulosin HCl (Flomax) 0.4 mg PO BID [facility] Last Admin: 09/05/18 18:20 Dose: 0.4 mg Vitamin A (Vitamin A & D Oint Ud Foilpak) 1 ea TOP BID [facility] Last Admin: 09/05/18 18:20 Dose: 1 ea - Labs Labs: 09/05/18 06:34 09/05/18 06:34 PT 15.6 SECONDS (9.7-12.2) H 07/21/18 20:28 INR 1.4 07/21/18 20:28 APTT 34 SECONDS (21-34) 07/21/18 20:28 Assessment and Plan (1) Respiratory failure Status: Acute (2) Toxic metabolic encephalopathy Status: Acute (3) Acute hyperglycemia Status: Acute (4) Sepsis Status: Acute (5) Sepsis affecting skin Status: Acute (6) Diskitis Status: Acute (7) Spinal epidural abscess Status: Acute
--- NOTE | 2018-09-06 07:23 | CP.PCM.PN ---
<Rodriguez An - Last Filed: 09/06/18 12:49> Subjective - Date & Time of Evaluation Date of Evaluation: 09/06/18 Time of Evaluation: 07:00 - Subjective Subjective: PGY 1 Medicine Progress Note for Dr. Alston. Patient seen and examined at bedside. No overnight events reported. Patient states he still has minor back pain. Patient reports no further complaints. Patient denies chest pain, SOB, nausea, vomiting, abdominal pain, SOB, nausea, vomiting. Objective - Vital Signs/Intake and Output Vital Signs (last 24 hours): Temp Pulse Resp BP Pulse Ox 98 F 78 20 119/67 98 09/06/18 00:00 09/06/18 00:00 09/06/18 00:00 09/06/18 00:00 09/06/18 00:00 Intake and Output: 09/06/18 09/06/18 06:59 18:59 Intake Total 350 Output Total 300 Balance 50 - Medications Medications: Current Medications Acetaminophen (Tylenol 325mg Tab) 650 mg PO Q6 PRN PRN Reason: Fever >100.4 or Pain Last Admin: 09/03/18 09:50 Dose: 650 mg Amlodipine Besylate (Norvasc) 10 mg PO DAILY [facility] Last Admin: 09/05/18 09:39 Dose: 10 mg Aspirin (Ecotrin) 81 mg PO DAILY [facility] Last Admin: 09/05/18 09:40 Dose: 81 mg Docusate Sodium (Colace) 100 mg PO TID [facility] Last Admin: 09/05/18 18:20 Dose: 100 mg Enalapril Maleate (Vasotec) 40 mg PO DAILY [facility] Last Admin: 09/05/18 09:43 Dose: 40 mg Famotidine (Pepcid) 20 mg PO DAILY [facility] Last Admin: 09/05/18 09:43 Dose: 20 mg Ferrous Sulfate (Feosol) 325 mg PO TID [facility] Last Admin: 09/05/18 18:22 Dose: 325 mg Finasteride (Proscar) 5 mg PO DAILY [facility] Last Admin: 09/05/18 09:40 Dose: 5 mg Gabapentin (Neurontin) 200 mg PO TID [facility] Last Admin: 09/05/18 18:20 Dose: 200 mg Heparin Sodium (Porcine) (Heparin) 5,000 units SC BID [facility] Last Admin: 09/05/18 18:21 Dose: 5,000 units Cefazolin Sodium 2,000 mg/ (Sodium Chloride) 50 mls @ 100 mls/hr IVPB Q8H [facility]; Protocol Last Admin: 09/06/18 02:46 Dose: 100 mls/hr Insulin Glargine (Lantus) 30 unit SC DAILY [facility] Last Admin: 09/05/18 09:48 Dose: 30 units Insulin Human Regular (Novolin R) 0 unit SC ACHS [facility]; Protocol Last Admin: 09/05/18 21:21 Dose: Not Given Lactobacillus Acidophilus (Bacid Acidophilus) 1 cap PO BID [facility] Last Admin: 09/05/18 18:20 Dose: 1 cap Lidocaine (Lidoderm) 1 ea TD DAILY [facility] Last Admin: 09/05/18 09:44 Dose: 1 ea Metoprolol Succinate (Toprol Xl) 50 mg PO DAILY [facility] Last Admin: 09/05/18 09:39 Dose: 50 mg Mupirocin (Bactroban Ointment) 0 gm TOP DAILY [facility] Last Admin: 09/05/18 10:00 Dose: 1 applic Polyethylene Glycol (Miralax) 17 gm PO MWF [facility] Last Admin: 09/04/18 08:36 Dose: 17 gm Tamsulosin HCl (Flomax) 0.4 mg PO BID [facility] Last Admin: 09/05/18 18:20 Dose: 0.4 mg Vitamin A (Vitamin A & D Oint Ud Foilpak) 1 ea TOP BID [facility] Last Admin: 09/05/18 18:20 Dose: 1 ea - Labs Labs: 09/05/18 06:34 09/05/18 06:34 PT 15.6 SECONDS (9.7-12.2) H 07/21/18 20:28 INR 1.4 07/21/18 20:28 APTT 34 SECONDS (21-34) 07/21/18 20:28 - Constitutional Appears: Non-toxic, No Acute Distress - Head Exam Head Exam: NORMAL INSPECTION - Eye Exam Eye Exam: Normal appearance - ENT Exam ENT Exam: Mucous Membranes Moist Additional comments: ulcerative lesion on the L nare and L malar region, erythema with slight granulation tissue. no drainage noted. cartilage visible. No active bleeding, or signs of infection. - Respiratory Exam Respiratory Exam: Clear to Ausculation Bilateral, NORMAL BREATHING PATTERN. absent: Rales, Rhonchi, Wheezes - Cardiovascular Exam Cardiovascular Exam: +S1, +S2. absent: Murmur - GI/Abdominal Exam GI & Abdominal Exam: Soft, Normal Bowel Sounds - Extremities Exam Extremities Exam: absent: Calf Tenderness, Pedal Edema Additional comments: Bilateral BKA, full ROM. No edema or tenderness. - Back Exam Back Exam: paraspinal tenderness. absent: CVA tenderness (L), CVA tenderness (R) - Neurological Exam Neurological Exam: Alert, Awake, Oriented x3 - Psychiatric Exam Psychiatric exam: Normal Affect, Normal Mood - Skin Skin Exam: Dry, Intact, Normal Color, Warm Assessment and Plan - Assessment and Plan (Free Text) Assessment: 53 yo male with a history of uncontrolled T2DM (s/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 Patient's B/C + for staph aureus, found to have discitis, received now 7 weeks of ancef, CRP/ ESR remained elevated, now on trial of kelfex 1000mg TID. If patient remains stable, plan for discharge mid next week. Patient has already received wheelchair at bedside. Plan: Epidural Abscess Back pain - Initial MRI L-spine: suspicious for discitis osteomyelitis involving L4-5 intervetebral disc w/ anterior epidural abscess, R iliopsoas fluid collection 1.5x1.9cm - Repeat MRI: Discitis-osteomyelitis seen at the L4-L5 level. There has been interval progression of edema within the vertebral bodies however the epidural phlegmonous changes appear to have diminished slightly. There also appears to be paraspinal soft tissue extension of phlegmonous changes maximally at the L4- L5 disc space and tapering of above and below this level. The phlegmonous changes do exert compressive effects on the ventral surface of the thecal sac with variable posterior displacement of the ventrally located intrathecal nerve roots of the cauda equina more so centrally and to the right along the superior border and to the centrally and to the left along its inferior border as detailed above. - Per neurosurgery, Dr. Olivia/Dr Kelton reyes for possible surgical intervention - previous consult required no surgical intervention - present consultation recommended ESR/ CRP, MRI generally lags behind in osteo - ESR & CRP both elevated - continue abx - Per ID, Dr. Jose reyes - trial of oral keflex 1g TID - D'Primo ancef 2000mg IV q8h (09/06); had 7 weeks of IV abx - F/u IR, Dr. Fragoso recstella: - psoas collection and spinal abscess too small to drain - naproxen 550mg PO q12h PRN kurtz pain - percocet 5/325 X2 tabs daily 30 mins prior physical therapy Anemia Stable - likely of chronic disease - Hgb stable in 8s - patient remains asymptomatic - will continue to monitor L Maxillofacial Ulcer Stable - CT 07/25: soft tissue swelling, no osteomyelitis or drainable fluid - mupirocin 2g top BID - wound care consulted - Pt had follow up plastic surgeon at [facility] sep 04 - informed patient the need to reschedule appointment - Patient has contact information - stable DM type 2 Stable - A1c 8.9 - medium dose Novolin R ISS - blood sugars in 180s - lantus 30u SC daily (increased from 25 to 30 on 08/13) - Hypoglycemia protocol - Accuchecks ACHS - despite persistent education of no sweet/sugar filled drinks, patient continues to have juices at bedside - Diabetic diet education referral HTN Stable - patient initially HTN in 160s to 170s, now 130s to 150s - ASA 81 mg PO daily - Enalapril 30 mg PO daily - Metoprolol succinate 50 mg PO daily - Norvasc 10mg PO daily Urinary Retention Resolved - CT A/P: bladder wall thickening (cystitis), b/l renal parenchymal high density may be underlying metabolic disorder - I/Os - sagastume catheter (07/27) - flomax 0.4mg PO BID - finasteride 5mg PO daily - Urology consulted: Titi Kam - maintain sagastume until outpatient follow - Sagastume D/C'ed @ 10 AM on 08/13, patient has been urinating freely CAP Resolved - CXR 08/06: no active disease - CT A/P: LLL consolidation vs atelectasis - ancef 2000mg IV q8h (07/25) Staph Aureus Bacteremia: Resolved - Initially: Blood Cx positive for Staph aureus (07/21); F/u Blood Cx negative 07/28 X 5 days - Urine Cx: no growth - Procal 14.74, Tmax 100.8 (08/01) - Tylenol 650 mg PO Q6H PRN - Echo: LV normal size and EF. LA mildly dilated. Mild TR - F/u cardio, Dr. Ge recs: - consider KASH if BCx+ in future, signed off - F/u ID, Dr. Garcia recs: - completed 7 weeks IV abx - trial of keflex 1g TID, if stable, then D/C - likely source: spinal abscess Unresponsiveness Resolved AAOx3 Previously - Code stroke - EEG: nonspecific abnormalities, no seizures noted - CT head: no acute findings - CTA head and neck: no significant stenoses or abnormalities - PRL wnl (12.9) - Gabapentin 100 mg PO TID - Neurology consulted: Manda - no need for anticonvulsant at this time Dysuria Resolved - UA - leuko esterase 2+, WBC 50, squamous 1+ - UC - yeast species > 409445 cfu/ml - fluconazole 100 mg PO daily X 7 fdays - Added pyridium 100 mg TIDPC for 2 days for symptom relief Ppx: DVT: Heparin 5000 units Q12H GI: Protonix 40 mg PO daily Labs: CBC/ CMP QD Diabetic Diet Patient may shower PT/OT: f/u recs for d/c recs for 09/04; percocet 5/325 X2 tabs daily 30 mins prior physical therapy Dispo: pt without insurance and undocumented citizen, pending medicaid acceptance. Patient has received 7 weeks of IV abx. Started on keflex 1g TID on 09/06. Will monitor for fevers/ WBCs and if stable, possible discharge mid next week. patient has wheelchair at bedside. Additionally patient will need to follow up with [facility] for his facial ulcer upon discharge. <Galen Alston - Last Filed: 09/06/18 14:41> Objective - Vital Signs/Intake and Output Vital Signs (last 24 hours): Temp Pulse Resp BP Pulse Ox 97.9 F 89 20 159/80 H 98 09/06/18 08:25 09/06/18 08:25 09/06/18 08:25 09/06/18 09:47 09/06/18 08:30 Intake and Output: 09/06/18 09/06/18 06:59 18:59 Intake Total 350 Output Total 300 Balance 50 - Medications Medications: Current Medications Acetaminophen (Tylenol 325mg Tab) 650 mg PO Q6 PRN PRN Reason: Fever >100.4 or Pain Last Admin: 09/03/18 09:50 Dose: 650 mg Amlodipine Besylate (Norvasc) 10 mg PO DAILY [facility] Last Admin: 09/06/18 09:47 Dose: 10 mg Aspirin (Ecotrin) 81 mg PO DAILY [facility] Last Admin: 09/06/18 09:46 Dose: 81 mg Cephalexin Monohydrate (Keflex) 1,000 mg PO TID [facility]; Protocol Docusate Sodium (Colace) 100 mg PO TID [facility] Last Admin: 09/06/18 14:31 Dose: 100 mg Enalapril Maleate (Vasotec) 40 mg PO DAILY [facility] Last Admin: 09/06/18 09:47 Dose: 40 mg Famotidine (Pepcid) 20 mg PO DAILY [facility] Last Admin: 09/06/18 09:48 Dose: 20 mg Ferrous Sulfate (Feosol) 325 mg PO TID [facility] Last Admin: 09/06/18 14:31 Dose: 325 mg Finasteride (Proscar) 5 mg PO DAILY [facility] Last Admin: 09/06/18 09:46 Dose: 5 mg Gabapentin (Neurontin) 200 mg PO TID [facility] Last Admin: 09/06/18 14:31 Dose: 200 mg Heparin Sodium (Porcine) (Heparin) 5,000 units SC BID [facility] Last Admin: 09/06/18 09:49 Dose: 5,000 units Insulin Glargine (Lantus) 30 unit SC DAILY [facility] Last Admin: 09/06/18 09:48 Dose: 30 units Insulin Human Regular (Novolin R) 0 unit SC [facility]; Protocol Last Admin: 09/06/18 11:29 Dose: 3 units Lactobacillus Acidophilus (Bacid Acidophilus) 1 cap PO BID [facility] Last Admin: 09/06/18 10:17 Dose: 1 cap Lidocaine (Lidoderm) 1 ea TD DAILY [facility] Last Admin: 09/06/18 11:26 Dose: 1 ea Metoprolol Succinate (Toprol Xl) 50 mg PO DAILY [facility] Last Admin: 09/06/18 09:48 Dose: 50 mg Mupirocin (Bactroban Ointment) 0 gm TOP DAILY [facility] Last Admin: 09/06/18 10:18 Dose: 1 applic Polyethylene Glycol (Miralax) 17 gm PO MWF [facility] Last Admin: 09/06/18 11:20 Dose: Not Given Tamsulosin HCl (Flomax) 0.4 mg PO BID [facility] Last Admin: 09/06/18 09:48 Dose: 0.4 mg Vitamin A (Vitamin A & D Oint Ud Foilpak) 1 ea TOP BID [facility] Last Admin: 09/06/18 09:48 Dose: 1 ea - Labs Labs: 09/05/18 06:34 09/05/18 06:34 PT 15.6 SECONDS (9.7-12.2) H 07/21/18 20:28 INR 1.4 07/21/18 20:28 APTT 34 SECONDS (21-34) 07/21/18 20:28 Attending/Attestation - Attestation I have personally seen and examined this patient.: Yes I have fully participated in the care of the patient.: Yes I have reviewed all pertinent clinical information, including history, physical exam and plan: Yes Notes (Text): 09/06/18 14:36 Medical attending: Patient was seen and examined by me. Agree with the above note by the resident Yesterday we had a very long conversation with the patient via clinical pharmacist. Because of the unchanged MRI findings, ESR and CRP are elevated. We had thought about discharging the patient today and so will stop the IV abx and try the patient on PO abx while he is in the hospitak to see how he does. We explained to the patient that if his blood work is stable and he remains afebrile then he should expect to be discharged Sunday or Sunday. We will have to monitor the WBC as well as for fevers while he is on the PO abx Galen Alston
[2018-09-06] MEDS: (Novolin R) Insulin Human Regular 100 units/ml vial SC SCH ×4 (08:03→21:15)
[2018-09-06] MEDS: (Lantus) Insulin Glargine, Recombinant SC SCH (09:48)
[2018-09-06] MEDS: Metoprolol Succinate 50 mg XL Tab PO SCH (09:48)
[2018-09-06] MEDS: Vitamins A & D Oint UD Foilpak TOP SCH ×2 (09:48→17:07)
[2018-09-06] MEDS: Lactobacillus Acidophilus 500 MU Cap PO SCH ×2 (10:17→17:10)
[2018-09-06] MEDS: POLYETHYLENE GLYCOL 3350 17 GM/Dose PACKET PO SCH (11:20)
[2018-09-06] MEDS: Lidocaine 5% Patch TD SCH (11:26)
--- NOTE | 2018-09-07 02:11 | CP.PCM.PN ---
<Nan Osman - Last Filed: 09/07/18 02:08> Subjective - Date & Time of Evaluation Date of Evaluation: 09/07/18 Time of Evaluation: 02:08 - Subjective Subjective: PGY-1 Nan Osman D.O. Medicine progress note for Dr. Alston's service: Patient was seen and examined this morning. No acute complaints. Patient preoccupied with his chronic back pain. Denies PATIÑO, chest pain, SOB, N/V/D/C. Patient aware of plan to discharge next week. Objective - Vital Signs/Intake and Output Vital Signs (last 24 hours): Temp Pulse Resp BP Pulse Ox 98.5 F 84 20 142/72 97 09/07/18 00:00 09/07/18 00:00 09/07/18 00:00 09/07/18 00:00 09/07/18 00:00 Intake and Output: 09/06/18 09/07/18 18:59 06:59 Intake Total 550 400 Balance 550 400 - Medications Medications: Current Medications Acetaminophen (Tylenol 325mg Tab) 650 mg PO Q6 PRN PRN Reason: Fever >100.4 or Pain Last Admin: 09/03/18 09:50 Dose: 650 mg Amlodipine Besylate (Norvasc) 10 mg PO DAILY [facility] Last Admin: 09/06/18 09:47 Dose: 10 mg Aspirin (Ecotrin) 81 mg PO DAILY [facility] Last Admin: 09/06/18 09:46 Dose: 81 mg Cephalexin Monohydrate (Keflex) 1,000 mg PO TID [facility]; Protocol Last Admin: 09/06/18 17:10 Dose: 1,000 mg Docusate Sodium (Colace) 100 mg PO TID [facility] Last Admin: 09/06/18 17:06 Dose: 100 mg Enalapril Maleate (Vasotec) 40 mg PO DAILY [facility] Last Admin: 09/06/18 09:47 Dose: 40 mg Famotidine (Pepcid) 20 mg PO DAILY [facility] Last Admin: 09/06/18 09:48 Dose: 20 mg Ferrous Sulfate (Feosol) 325 mg PO TID [facility] Last Admin: 09/06/18 17:07 Dose: 325 mg Finasteride (Proscar) 5 mg PO DAILY [facility] Last Admin: 09/06/18 09:46 Dose: 5 mg Gabapentin (Neurontin) 200 mg PO TID [facility] Last Admin: 09/06/18 17:06 Dose: 200 mg Heparin Sodium (Porcine) (Heparin) 5,000 units SC BID [facility] Last Admin: 09/06/18 17:08 Dose: 5,000 units Insulin Glargine (Lantus) 30 unit SC DAILY [facility] Last Admin: 09/06/18 09:48 Dose: 30 units Insulin Human Regular (Novolin R) 0 unit SC ACHS [facility]; Protocol Last Admin: 09/06/18 21:15 Dose: Not Given Lactobacillus Acidophilus (Bacid Acidophilus) 1 cap PO BID [facility] Last Admin: 09/06/18 17:10 Dose: 1 cap Lidocaine (Lidoderm) 1 ea TD DAILY [facility] Last Admin: 09/06/18 11:26 Dose: 1 ea Metoprolol Succinate (Toprol Xl) 50 mg PO DAILY [facility] Last Admin: 09/06/18 09:48 Dose: 50 mg Mupirocin (Bactroban Ointment) 0 gm TOP DAILY [facility] Last Admin: 09/06/18 10:18 Dose: 1 applic Polyethylene Glycol (Miralax) 17 gm PO MWF [facility] Last Admin: 09/06/18 11:20 Dose: Not Given Tamsulosin HCl (Flomax) 0.4 mg PO BID [facility] Last Admin: 09/06/18 17:07 Dose: 0.4 mg Vitamin A (Vitamin A & D Oint Ud Foilpak) 1 ea TOP BID [facility] Last Admin: 09/06/18 17:07 Dose: 1 ea - Labs Labs: 09/05/18 06:34 09/05/18 06:34 PT 15.6 SECONDS (9.7-12.2) H 07/21/18 20:28 INR 1.4 07/21/18 20:28 APTT 34 SECONDS (21-34) 07/21/18 20:28 - Constitutional Appears: No Acute Distress - Head Exam Head Exam: ATRAUMATIC, NORMAL INSPECTION - Eye Exam Eye Exam: EOMI, Normal appearance, PERRL - ENT Exam ENT Exam: Mucous Membranes Moist Additional comments: erosion of L nare/malar region, present for > 1 year, no active bleeding or signs of infection - Neck Exam Neck Exam: Normal Inspection - Respiratory Exam Respiratory Exam: Clear to Ausculation Bilateral, NORMAL BREATHING PATTERN. absent: Accessory Muscle Use, Respiratory Distress - Cardiovascular Exam Cardiovascular Exam: REGULAR RHYTHM, +S1, +S2 - GI/Abdominal Exam GI & Abdominal Exam: Soft. absent: Tenderness - Rectal Exam Rectal Exam: Deferred - Extremities Exam Additional comments: b/l BKA - Neurological Exam Neurological Exam: Alert, Awake - Skin Skin Exam: Dry, Normal Color, Warm Assessment and Plan - Assessment and Plan (Free Text) Assessment: 53 yo male with a history of uncontrolled T2DM (s/p b/l BKA), HTN, and L facial cellulitis/erosion who presented to the ED after being found unresponsive by his at home. Patient's B/C + for staph aureus, found to have discitis, received now 7 weeks of ancef, CRP/ ESR remained elevated, now on trial of kelfex 1000mg TID. If patient remains stable, plan for discharge mid next week. He is without insurance and undocumented citizen, pending medicaid acceptance. Patient has already received wheelchair at bedside. Plan: Epidural Abscess and Discitis - Initial MRI L-spine: suspicious for discitis osteomyelitis involving L4-5 intervetebral disc w/ anterior epidural abscess, R iliopsoas fluid collection 1.5x1.9cm - Repeat MRI: Discitis-osteomyelitis seen at the L4-L5 level. There has been interval progression of edema within the vertebral bodies however the epidural phlegmonous changes appear to have diminished slightly. There also appears to be paraspinal soft tissue extension of phlegmonous changes maximally at the L4- L5 disc space and tapering of above and below this level. The phlegmonous changes do exert compressive effects on the ventral surface of the thecal sac with variable posterior displacement of the ventrally located intrathecal nerve roots of the cauda equina more so centrally and to the right along the superior border and to the centrally and to the left along its inferior border as detailed above. - Per neurosurgery, Dr. Olivia/Dr Kelton reyes for possible surgical intervention - previous consult required no surgical intervention - present consultation recommended ESR/ CRP, MRI generally lags behind in osteo - ESR & CRP both elevated - continue abx - Per Dr. Jose AVILES recs - trial of oral keflex 1g TID - D'Primo ancef 2000mg IV q8h (09/06); had 7 weeks of IV abx - F/u IR, Dr. Fragoso recs: - psoas collection and spinal abscess too small to drain - Lidoderm daily - Tylenol 650 mg PO Q6H PRN - percocet 5/325 X2 tabs daily 30 mins prior physical therapy Anemia of chronic disease- stable - Hgb stable in 8s - patient remains asymptomatic - Ferrous sulfate 325 mg PO TID L Maxillofacial Ulcer- stable - CT 07/25: soft tissue swelling, no osteomyelitis or drainable fluid - mupirocin 2g top BID - wound care consulted - Pt had follow up with plastic surgeon at [facility] sep 04 - informed patient the need to reschedule appointment - Patient has contact information Constipation - Colace 100 mg PO TID - Miralax 17 g PO MWF Type 2 diabetes mellitus, chronic - A1c 8.9 - medium dose Novolin R ISS - blood sugars in 180s - lantus 30u SC daily (increased from 25 to 30 on 08/13) - gabapentin 200 mg PO TID - Hypoglycemia protocol - Accuchecks ACHS - despite persistent education of no sweet/sugar filled drinks, patient continues to have juices at bedside - Diabetic diet education referral Hypertension, chronic - ASA 81 mg PO daily - Enalapril 40 mg PO daily - Metoprolol succinate 50 mg PO daily - Norvasc 10mg PO daily Staph Aureus Bacteremia- resolved - likely source: spinal abscess - Initially: Blood Cx positive for Staph aureus (07/21); F/u Blood Cx negative 07/28 X 5 days - Urine Cx: no growth - Procal 14.74, Tmax 100.8 (08/01) - Tylenol 650 mg PO Q6H PRN - Echo: LV normal size and EF. LA mildly dilated. Mild TR - F/u cardio, Dr. Ge recs: - consider KASH if BCx+ in future, signed off - F/u ID, Dr. Garcia recs: - completed 7 weeks IV abx - trial of keflex 1g TID, if stable, then D/C Urinary Retention- resolved - CT A/P: bladder wall thickening (cystitis), b/l renal parenchymal high density may be underlying metabolic disorder - I/Os - flomax 0.4mg PO BID - finasteride 5mg PO daily - Urology consulted: Titi Kam - maintain sagastume until outpatient follow - Sagastume placed 07/27 D/C'ed @ 10 AM on 08/13, patient has been urinating freely Dysuria - resolved - UA - leuko esterase 2+, WBC 50, squamous 1+ - UC - yeast species > [id number] cfu/ml - completed fluconazole 100 mg PO daily X 7 fdays - completed Pyridium 100 mg TIDPC for 2 days for symptom relief Community acquired pneumonia- resolved - CXR 08/06: no active disease - CT A/P: LLL consolidation vs atelectasis - Discontinue Ancef 2000mg IV q8h (07/25) Unresponsiveness- resolved - AAOx3 - Code stroke - EEG: nonspecific abnormalities, no seizures noted - CT head: no acute findings - CTA head and neck: no significant stenoses or abnormalities - PRL wnl (12.9) - Gabapentin 100 mg PO TID - Neurology consulted: Manda - no need for anticonvulsant at this time Ppx: DVT: Heparin 5000 units BID GI: Pepcid 20 mg PO daily Vit A&D Code status: full code Case was discussed with attending, Dr. Alston. <Galen Alston - Last Filed: 09/07/18 11:17> Objective - Vital Signs/Intake and Output Vital Signs (last 24 hours): Temp Pulse Resp BP Pulse Ox 98 F 83 20 136/75 96 09/07/18 08:03 09/07/18 08:03 09/07/18 08:03 09/07/18 09:15 09/07/18 08:03 Intake and Output: 09/07/18 09/07/18 06:59 18:59 Intake Total 700 Balance 700 - Medications Medications: Current Medications Acetaminophen (Tylenol 325mg Tab) 650 mg PO Q6 PRN PRN Reason: Fever >100.4 or Pain Last Admin: 09/03/18 09:50 Dose: 650 mg Amlodipine Besylate (Norvasc) 10 mg PO DAILY [facility] Last Admin: 09/07/18 09:15 Dose: 10 mg Aspirin (Ecotrin) 81 mg PO DAILY [facility] Last Admin: 09/07/18 09:14 Dose: 81 mg Cephalexin Monohydrate (Keflex) 1,000 mg PO TID [facility]; Protocol Last Admin: 09/07/18 09:16 Dose: 1,000 mg Docusate Sodium (Colace) 100 mg PO TID [facility] Last Admin: 12/15/18 09:14 Dose: 100 mg Enalapril Maleate (Vasotec) 40 mg PO DAILY [facility] Last Admin: 09/07/18 09:15 Dose: 40 mg Famotidine (Pepcid) 20 mg PO DAILY [facility] Last Admin: 09/07/18 09:14 Dose: 20 mg Ferrous Sulfate (Feosol) 325 mg PO TID [facility] Last Admin: 09/07/18 09:14 Dose: 325 mg Finasteride (Proscar) 5 mg PO DAILY [facility] Last Admin: 09/07/18 09:14 Dose: 5 mg Gabapentin (Neurontin) 200 mg PO TID [facility] Last Admin: 09/07/18 09:14 Dose: 200 mg Heparin Sodium (Porcine) (Heparin) 5,000 units SC BID [facility] Last Admin: 09/07/18 09:15 Dose: 5,000 units Insulin Glargine (Lantus) 30 unit SC DAILY [facility] Last Admin: 09/07/18 09:13 Dose: 30 units Insulin Human Regular (Novolin R) 0 unit SC [facility]; Protocol Last Admin: 09/07/18 08:01 Dose: Not Given Lactobacillus Acidophilus (Bacid Acidophilus) 1 cap PO BID [facility] Last Admin: 09/07/18 09:16 Dose: 1 cap Lidocaine (Lidoderm) 1 ea TD DAILY [facility] Last Admin: 09/07/18 10:27 Dose: 1 ea Metoprolol Succinate (Toprol Xl) 50 mg PO DAILY [facility] Last Admin: 09/07/18 09:14 Dose: 50 mg Mupirocin (Bactroban Ointment) 0 gm TOP DAILY [facility] Last Admin: 09/07/18 09:17 Dose: 1 applic Polyethylene Glycol (Miralax) 17 gm PO MWF [facility] Last Admin: 09/06/18 11:20 Dose: Not Given Tamsulosin HCl (Flomax) 0.4 mg PO BID [facility] Last Admin: 09/07/18 09:14 Dose: 0.4 mg Vitamin A (Vitamin A & D Oint Ud Foilpak) 1 ea TOP BID [facility] Last Admin: 09/07/18 09:14 Dose: 1 ea - Labs Labs: 09/07/18 07:04 09/07/18 07:04 PT 15.6 SECONDS (9.7-12.2) H 07/21/18 20:28 INR 1.4 07/21/18 20:28 APTT 34 SECONDS (21-34) 07/21/18 20:28 Attending/Attestation - Attestation I have personally seen and examined this patient.: Yes I have fully participated in the care of the patient.: Yes I have reviewed all pertinent clinical information, including history, physical exam and plan: Yes Notes (Text): 09/07/18 11:12 Medical attending: Patient was seen and examined by me. When I came in this morning he looked very calm and relaxed watching television with his arms behind his head. I explained to him the the lab work looked ok and the WBC stayed in stable range. We will check again tommorrow As mentioned previously he's been on 7 weeks of IV abx and because of his situation with bilateral amputation as well as difficult financial situation it is difficult for patient to continue to an IV infusion center. He has not had an elevated WBC for some time now and no fevers or chills. This previous week we had considered DC the patient however the MRI results were not changed, ESR is still high. He has a lot of other chronic situations which likey contribute to the elevated ESR So he is now on PO abx to see how he does. Hopefully if he remains stable lab work and no changes to vital signs we will consider discharging patient later this next week. Galen Alston
[2018-09-07 07:13] LABS: BASO % 0.6 % (0.0-2.0); EOS # 0.4 K/uL (0.0-0.7); EOS % 5.2 % (0.0-4.0); LYMPH # 1.5 K/uL (1.0-4.3); LYMPH % 18.5 % (20.0-40.0); MEAN CELL VOLUME 88.2 fL (80.0-94.0); MEAN CORPUSCULAR HEMOGLOBIN 29.6 pg (27.0-31.0); MEAN CORPUSCULAR HGB CONC 33.6 g/dL (33.0-37.0); MEAN PLATELET VOLUME 8.9 fL (7.2-11.7); MONO # 0.6 K/uL (0.0-0.8); MONO % 7.1 % (0.0-10.0); NEUT # 5.7 K/uL (1.8-7.0); NEUT % 68.6 % (50.0-75.0); RBC 2.68 Mil/uL (4.40-5.90); RED CELL DISTRIBUTION WIDTH 14.6 % (11.5-14.5); WHITE BLOOD COUNT 8.3 K/uL (4.8-10.8)
[2018-09-07 07:26] LABS: ALB/GLOB RATIO 0.7 (1.0-2.1); ALT/SGPT 7 U/L (21-72); AST/SGOT 13 U/L (17-59); BLOOD UREA NITROGEN 25 mg/dL (9-20); CALCIUM 8.6 mg/dl (8.6-10.4); GFR NON-AFRICAN AMERICAN > 60
[2018-09-07] MEDS: (Novolin R) Insulin Human Regular 100 units/ml vial SC SCH ×4 (08:01→21:15)
[2018-09-07] MEDS: (Lantus) Insulin Glargine, Recombinant SC SCH (09:13)
[2018-09-07] MEDS: Metoprolol Succinate 50 mg XL Tab PO SCH (09:14)
[2018-09-07] MEDS: Vitamins A & D Oint UD Foilpak TOP SCH ×2 (09:14→17:36)
[2018-09-07] MEDS: Lactobacillus Acidophilus 500 MU Cap PO SCH ×2 (09:16→17:35)
[2018-09-07] MEDS: Lidocaine 5% Patch TD SCH (10:27)
--- NOTE | 2018-09-08 03:06 | CP.PCM.PN ---
<Nan Osman - Last Filed: 09/08/18 03:01> Subjective - Date & Time of Evaluation Date of Evaluation: 09/08/18 Time of Evaluation: 03:01 - Subjective Subjective: PGY-1 Nan Osman D.O. Medicine progress note for Dr. Alston's service: Patient was seen and examined this morning. Patient does not appear to be in distress/significant pain. No acute complaints. Denies PATIÑO, chest pain, SOB, N/V/D/C. Objective - Vital Signs/Intake and Output Vital Signs (last 24 hours): Temp Pulse Resp BP Pulse Ox 98.7 F 87 20 124/72 97 09/08/18 00:00 09/08/18 00:00 09/08/18 00:00 09/08/18 00:00 09/08/18 00:00 Intake and Output: 09/07/18 09/08/18 18:59 06:59 Intake Total 300 350 Balance 300 350 - Medications Medications: Current Medications Acetaminophen (Tylenol 325mg Tab) 650 mg PO Q6 PRN PRN Reason: Fever >100.4 or Pain Last Admin: 09/03/18 09:50 Dose: 650 mg Amlodipine Besylate (Norvasc) 10 mg PO DAILY [facility] Last Admin: 09/07/18 09:15 Dose: 10 mg Aspirin (Ecotrin) 81 mg PO DAILY [facility] Last Admin: 09/07/18 09:14 Dose: 81 mg Cephalexin Monohydrate (Keflex) 1,000 mg PO TID [facility]; Protocol Last Admin: 09/07/18 17:36 Dose: 1,000 mg Docusate Sodium (Colace) 100 mg PO TID [facility] Last Admin: 09/07/18 17:36 Dose: 100 mg Enalapril Maleate (Vasotec) 40 mg PO DAILY [facility] Last Admin: 09/07/18 09:15 Dose: 40 mg Famotidine (Pepcid) 20 mg PO DAILY [facility] Last Admin: 09/07/18 09:14 Dose: 20 mg Ferrous Sulfate (Feosol) 325 mg PO TID [facility] Last Admin: 09/07/18 17:36 Dose: 325 mg Finasteride (Proscar) 5 mg PO DAILY [facility] Last Admin: 09/07/18 09:14 Dose: 5 mg Gabapentin (Neurontin) 200 mg PO TID [facility] Last Admin: 12/15/18 17:35 Dose: 200 mg Heparin Sodium (Porcine) (Heparin) 5,000 units SC BID [facility] Last Admin: 09/07/18 17:36 Dose: 5,000 units Insulin Glargine (Lantus) 30 unit SC DAILY [facility] Last Admin: 09/07/18 09:13 Dose: 30 units Insulin Human Regular (Novolin R) 0 unit SC ACHS [facility]; Protocol Last Admin: 09/07/18 21:15 Dose: Not Given Lactobacillus Acidophilus (Bacid Acidophilus) 1 cap PO BID [facility] Last Admin: 09/07/18 17:35 Dose: 1 cap Lidocaine (Lidoderm) 1 ea TD DAILY [facility] Last Admin: 09/07/18 10:27 Dose: 1 ea Metoprolol Succinate (Toprol Xl) 50 mg PO DAILY [facility] Last Admin: 09/07/18 09:14 Dose: 50 mg Mupirocin (Bactroban Ointment) 0 gm TOP DAILY [facility] Last Admin: 09/07/18 09:17 Dose: 1 applic Polyethylene Glycol (Miralax) 17 gm PO MWF [facility] Last Admin: 09/06/18 11:20 Dose: Not Given Tamsulosin HCl (Flomax) 0.4 mg PO BID [facility] Last Admin: 09/07/18 18:01 Dose: 0.4 mg Vitamin A (Vitamin A & D Oint Ud Foilpak) 1 ea TOP BID [facility] Last Admin: 09/07/18 17:36 Dose: 1 ea - Labs Labs: 09/07/18 07:04 09/07/18 07:04 PT 15.6 SECONDS (9.7-12.2) H 07/21/18 20:28 INR 1.4 07/21/18 20:28 APTT 34 SECONDS (21-34) 07/21/18 20:28 - Additional Findings Additional findings: - Constitutional Appears: No Acute Distress - Head Exam Head Exam: ATRAUMATIC, NORMAL INSPECTION - Eye Exam Eye Exam: EOMI, Normal appearance, PERRL - ENT Exam ENT Exam: Mucous Membranes Moist Additional comments: erosion of L nare/malar region, present for > 1 year, clean dry bandage across mid face, no active bleeding or signs of infection - Neck Exam Neck Exam: Normal Inspection - Respiratory Exam Respiratory Exam: Clear to Ausculation Bilateral, NORMAL BREATHING PATTERN. absent: Accessory Muscle Use, Respiratory Distress - Cardiovascular Exam Cardiovascular Exam: REGULAR RHYTHM, +S1, +S2 - GI/Abdominal Exam GI & Abdominal Exam: Soft. absent: Tenderness - Rectal Exam Rectal Exam: Deferred - Extremities Exam Additional comments: b/l BKA - Neurological Exam Neurological Exam: Alert, Awake - Skin Skin Exam: Dry, Normal Color, Warm Assessment and Plan - Assessment and Plan (Free Text) Assessment: 53 yo male with a history of uncontrolled T2DM (s/p b/l BKA), HTN, and L facial cellulitis/erosion who presented to the ED after being found unresponsive by his at home. Patient's B/C + for staph aureus, found to have discitis, received now 7 weeks of ancef, CRP/ ESR remained elevated, now on trial of kelfex 1000mg TID. If patient remains stable, plan for discharge mid next week. He is without insurance and undocumented citizen, pending medicaid acceptance. Patient has already received wheelchair at bedside. Plan: Epidural Abscess and Discitis - Initial MRI L-spine: suspicious for discitis osteomyelitis involving L4-5 int ervetebral disc w/ anterior epidural abscess, R iliopsoas fluid collection 1.5x1.9cm - Repeat MRI: Discitis-osteomyelitis seen at the L4-L5 level. There has been interval progression of edema within the vertebral bodies however the epidural phlegmonous changes appear to have diminished slightly. There also appears to be paraspinal soft tissue extension of phlegmonous changes maximally at the L4- L5 disc space and tapering of above and below this level. The phlegmonous changes do exert compressive effects on the ventral surface of the thecal sac with variable posterior displacement of the ventrally located intrathecal nerve roots of the cauda equina more so centrally and to the right along the superior border and to the centrally and to the left along its inferior border as detailed above. - Per neurosurgery, Dr. Olivia/Dr Kelton reyes for possible surgical intervention - previous consult required no surgical intervention - present consultation recommended ESR/ CRP, MRI generally lags behind in osteo - ESR & CRP both elevated - continue abx - Per ID, Dr. Jose reyes - trial of oral keflex 1g TID - discontinued ancef 2000mg IV q8h (09/06); had 7 weeks of IV abx - Per IR, Dr. Fouzia recs - psoas collection and spinal abscess too small to drain - Lidoderm daily - Tylenol 650 mg PO Q6H PRN - Percocet 5/325 X2 tabs daily 30 mins prior physical therapy Anemia of chronic disease- stable - Asymptomatic - Hgb stable in 8s - Ferrous sulfate 325 mg PO TID L Maxillofacial Ulcer- stable - CT 07/25: soft tissue swelling, no osteomyelitis or drainable fluid - Mupirocin 2g top BID - Wound care consulted - Patient had follow up with plastic surgeon at [facility] Sep 04 - informed patient the need to reschedule appointment - Patient has contact information Constipation - Colace 100 mg PO TID - Miralax 17 g PO MWF Type 2 diabetes mellitus, chronic - A1c 8.9 - Medium dose Novolin R ISS - Lantus 30u SC daily (increased from 25 to 30 on 08/13) - Gabapentin 200 mg PO TID - Hypoglycemia protocol - Accuchecks ACHS - Despite persistent education of no sweet/sugar filled drinks, patient continues to have juices at bedside - Diabetic diet education referral Hypertension, chronic - ASA 81 mg PO daily - Enalapril 40 mg PO daily - Metoprolol succinate 50 mg PO daily - Norvasc 10mg PO daily Staph Aureus Bacteremia- resolved - Likely source: spinal abscess - Initially: Blood Cx positive for Staph aureus (07/21); F/u Blood Cx negative 07/28 X 5 days - Urine Cx: no growth - Procal 14.74, Tmax 100.8 (08/01) - Tylenol 650 mg PO Q6H PRN - Echo: LV normal size and EF. LA mildly dilated. Mild TR - F/u cardio, Dr. Ge recs: - consider KASH if BCx+ in future, signed off - F/u ID, Dr. Garcia recs: - completed 7 weeks IV abx - trial of keflex 1g TID, if stable, then D/C Urinary Retention- resolved - CT A/P: bladder wall thickening (cystitis), b/l renal parenchymal high density may be underlying metabolic disorder - I/Os - Flomax 0.4mg PO BID - Finasteride 5mg PO daily - Urology consulted: Titi Kam - maintain sagastume until outpatient follow - Sagastume placed 07/27 D/C'ed @ 10 AM on 08/13, patient has been urinating freely Dysuria- resolved - UA - leuko esterase 2+, WBC 50, squamous 1+ - UC - yeast species > 248043 cfu/ml - Completed fluconazole 100 mg PO daily X 7 fdays - Completed Pyridium 100 mg TIDPC for 2 days for symptom relief Community acquired pneumonia- resolved - CXR 08/06: no active disease - CT A/P: LLL consolidation vs atelectasis - Discontinue Ancef 2000mg IV q8h (07/25) Unresponsiveness- resolved - AAOx3 - Code stroke - EEG: nonspecific abnormalities, no seizures noted - CT head: no acute findings - CTA head and neck: no significant stenoses or abnormalities - PRL wnl (12.9) - Gabapentin 100 mg PO TID - Neurology consulted: Manda - no need for anticonvulsant at this time Ppx: DVT: Heparin 5000 units BID GI: Pepcid 20 mg PO daily Vit A&D Code status: full code Case was discussed with attending, Dr. Alston. <Galen Alston - Last Filed: 09/08/18 14:56> Objective - Vital Signs/Intake and Output Vital Signs (last 24 hours): Temp Pulse Resp BP Pulse Ox 97.6 F 84 20 140/70 84 L 09/08/18 07:36 09/08/18 07:36 09/08/18 07:36 09/08/18 09:33 09/08/18 07:36 Intake and Output: 09/08/18 09/08/18 06:59 18:59 Intake Total 350 Balance 350 - Medications Medications: Current Medications Acetaminophen (Tylenol 325mg Tab) 650 mg PO Q6 PRN PRN Reason: Fever >100.4 or Pain Last Admin: 09/03/18 09:50 Dose: 650 mg Amlodipine Besylate (Norvasc) 10 mg PO DAILY [facility] Last Admin: 09/08/18 09:33 Dose: 10 mg Aspirin (Ecotrin) 81 mg PO DAILY [facility] Last Admin: 09/08/18 09:33 Dose: 81 mg Cephalexin Monohydrate (Keflex) 1,000 mg PO TID [facility]; Protocol Last Admin: 09/08/18 13:36 Dose: 1,000 mg Docusate Sodium (Colace) 100 mg PO TID [facility] Last Admin: 09/08/18 13:36 Dose: 100 mg Enalapril Maleate (Vasotec) 40 mg PO DAILY [facility] Last Admin: 09/08/18 09:33 Dose: 40 mg Famotidine (Pepcid) 20 mg PO DAILY [facility] Last Admin: 09/08/18 09:33 Dose: 20 mg Ferrous Sulfate (Feosol) 325 mg PO TID [facility] Last Admin: 09/08/18 13:36 Dose: 325 mg Finasteride (Proscar) 5 mg PO DAILY [facility] Last Admin: 09/08/18 09:33 Dose: 5 mg Gabapentin (Neurontin) 200 mg PO TID [facility] Last Admin: 09/08/18 13:36 Dose: 200 mg Heparin Sodium (Porcine) (Heparin) 5,000 units SC BID [facility] Last Admin: 09/08/18 09:34 Dose: 5,000 units Insulin Glargine (Lantus) 30 unit SC DAILY [facility] Last Admin: 09/08/18 09:35 Dose: 30 units Insulin Human Regular (Novolin R) [address] [facility]; Protocol Last Admin: 09/08/18 11:44 Dose: 3 units Lactobacillus Acidophilus (Bacid Acidophilus) 1 cap PO BID [facility] Last Admin: 09/08/18 09:31 Dose: 1 cap Lidocaine (Lidoderm) 1 ea TD DAILY [facility] Last Admin: 09/08/18 09:32 Dose: 1 ea Metoprolol Succinate (Toprol Xl) 50 mg PO DAILY [facility] Last Admin: 09/08/18 09:33 Dose: 50 mg Mupirocin (Bactroban Ointment) 0 gm TOP DAILY [facility] Last Admin: 09/08/18 09:35 Dose: 1 applic Polyethylene Glycol (Miralax) 17 gm PO MWF [facility] Last Admin: 09/06/18 11:20 Dose: Not Given Tamsulosin HCl (Flomax) 0.4 mg PO BID [facility] Last Admin: 09/08/18 09:33 Dose: 0.4 mg Vitamin A (Vitamin A & D Oint Ud Foilpak) 1 ea TOP BID [facility] Last Admin: 09/08/18 09:36 Dose: Not Given - Labs Labs: 09/08/18 06:58 09/08/18 06:58 PT 15.6 SECONDS (9.7-12.2) H 07/21/18 20:28 INR 1.4 07/21/18 20:28 APTT 34 SECONDS (21-34) 07/21/18 20:28 Attending/Attestation - Attestation I have personally seen and examined this patient.: Yes I have fully participated in the care of the patient.: Yes I have reviewed all pertinent clinical information, including history, physical exam and plan: Yes Notes (Text): Medical attending: Patient was seen and examined by me. When I came in this morning he looked very calm - AGAIN appears relaxed watching television with his arms behind his head. Reviewed the lab work, WBC stable, febrile. I explained to him the the lab work looked ok and the WBC stayed in stable range. We will continue to follow the lab work. As mentioned previously he's been on 7 weeks of IV abx and because of his situation with bilateral amputation as well as difficult financial situation it is difficult for patient to continue to an IV infusion center. He has not had an elevated WBC for some time now and no fevers or chills. This previous week we had considered DC the patient however the MRI results were not changed, ESR is still high. He has a lot of other chronic situations which likey contribute to the elevated ESR I explained to him that given his situation perhaps Sunday or will be discharged. So he is now on PO abx to see how he does. Hopefully if he remains stable lab work and no changes to vital signs we will consider discharging patient later this next week. Galen Alston
[2018-09-08 07:21] LABS: ALB/GLOB RATIO 0.8 (1.0-2.1); ALBUMIN 3.1 g/dL (3.5-5.0); ALT/SGPT 9 U/L (21-72); AST/SGOT 12 U/L (17-59); BLOOD UREA NITROGEN 39 mg/dL (9-20); CALCIUM 8.7 mg/dl (8.6-10.4); GFR NON-AFRICAN AMERICAN > 60
[2018-09-08 07:30] LABS: BASO % 0.5 % (0.0-2.0); EOS # 0.4 K/uL (0.0-0.7); EOS % 5.5 % (0.0-4.0); HEMOGLOBIN 8.1 g/dL (12.0-18.0); LYMPH # 1.7 K/uL (1.0-4.3); LYMPH % 21.3 % (20.0-40.0); MEAN CELL VOLUME 88.3 fL (80.0-94.0); MEAN CORPUSCULAR HEMOGLOBIN 29.8 pg (27.0-31.0); MEAN CORPUSCULAR HGB CONC 33.7 g/dL (33.0-37.0); MONO # 0.5 K/uL (0.0-0.8); MONO % 6.6 % (0.0-10.0); NEUT # 5.3 K/uL (1.8-7.0); NEUT % 66.1 % (50.0-75.0); NRBC % 0.1 % (0.0-2.0); RBC 2.73 Mil/uL (4.40-5.90); WHITE BLOOD COUNT 8.1 K/uL (4.8-10.8)
[2018-09-08] MEDS: (Novolin R) Insulin Human Regular 100 units/ml vial SC SCH ×4 (07:48→21:34)
[2018-09-08] MEDS: Lactobacillus Acidophilus 500 MU Cap PO SCH ×2 (09:31→17:12)
[2018-09-08] MEDS: Lidocaine 5% Patch TD SCH (09:32)
[2018-09-08] MEDS: Metoprolol Succinate 50 mg XL Tab PO SCH (09:33)
[2018-09-08] MEDS: (Lantus) Insulin Glargine, Recombinant SC SCH (09:35)
[2018-09-08] MEDS: Vitamins A & D Oint UD Foilpak TOP SCH ×2 (09:36→17:12)
[2018-09-09 06:42] LABS: BASO # 0.1 K/uL (0.0-0.2); BASO % 0.7 % (0.0-2.0); EOS # 0.5 K/uL (0.0-0.7); EOS % 6.5 % (0.0-4.0); HEMOGLOBIN 8.1 g/dL (12.0-18.0); LYMPH # 1.9 K/uL (1.0-4.3); LYMPH % 25.8 % (20.0-40.0); MEAN CELL VOLUME 88.5 fL (80.0-94.0); MEAN CORPUSCULAR HEMOGLOBIN 30.3 pg (27.0-31.0); MEAN CORPUSCULAR HGB CONC 34.3 g/dL (33.0-37.0); MEAN PLATELET VOLUME 8.8 fL (7.2-11.7); MONO # 0.6 K/uL (0.0-0.8); MONO % 7.8 % (0.0-10.0); NEUT # 4.4 K/uL (1.8-7.0); NEUT % 59.2 % (50.0-75.0); RBC 2.66 Mil/uL (4.40-5.90); RED CELL DISTRIBUTION WIDTH 14.9 % (11.5-14.5); WHITE BLOOD COUNT 7.4 K/uL (4.8-10.8)
[2018-09-09 07:04] LABS: ALB/GLOB RATIO 0.8 (1.0-2.1); ALBUMIN 3.2 g/dL (3.5-5.0); ALT/SGPT 8 U/L (21-72); AST/SGOT 28 U/L (17-59); BLOOD UREA NITROGEN 39 mg/dL (9-20); CALCIUM 8.7 mg/dl (8.6-10.4); GFR NON-AFRICAN AMERICAN > 60
[2018-09-09] MEDS: (Novolin R) Insulin Human Regular 100 units/ml vial SC SCH ×4 (08:09→21:28)
--- NOTE | 2018-09-09 08:14 | CP.PCM.PN ---
Subjective - Date & Time of Evaluation Date of Evaluation: 09/09/18 Time of Evaluation: 08:14 - Subjective Subjective: PGY-1 Medicine Progress Note for Dr. Curiel Patient seen and examined at bedside this AM, in no acute distress. No acute overnight events reported. Patient states he has minor stomach ache, otherwise no acute somatic complaints. No fevers/chills, headaches, dizziness, chest pain, palpitations, shortness of breath, cough, abdominal pain, n/v/d/c, dysuria, or changes in stool. Objective - Vital Signs/Intake and Output Vital Signs (last 24 hours): Temp Pulse Resp BP Pulse Ox 98 F 81 20 149/79 96 09/09/18 07:53 09/09/18 07:53 09/09/18 07:53 09/09/18 07:53 09/09/18 07:53 Intake and Output: 09/09/18 09/09/18 06:59 18:59 Intake Total 300 320 Balance 300 320 - Medications Medications: Current Medications Acetaminophen (Tylenol 325mg Tab) 650 mg PO Q6 PRN PRN Reason: Fever >100.4 or Pain Last Admin: 09/03/18 09:50 Dose: 650 mg Amlodipine Besylate (Norvasc) 10 mg PO DAILY [facility] Last Admin: 09/08/18 09:33 Dose: 10 mg Aspirin (Ecotrin) 81 mg PO DAILY [facility] Last Admin: 09/08/18 09:33 Dose: 81 mg Cephalexin Monohydrate (Keflex) 1,000 mg PO TID [facility]; Protocol Last Admin: 09/08/18 17:12 Dose: 1,000 mg Docusate Sodium (Colace) 100 mg PO TID [facility] Last Admin: 09/08/18 17:12 Dose: 100 mg Enalapril Maleate (Vasotec) 40 mg PO DAILY [facility] Last Admin: 09/08/18 09:33 Dose: 40 mg Famotidine (Pepcid) 20 mg PO DAILY [facility] Last Admin: 09/08/18 09:33 Dose: 20 mg Ferrous Sulfate (Feosol) 325 mg PO TID [facility] Last Admin: 09/08/18 17:12 Dose: 325 mg Finasteride (Proscar) 5 mg PO DAILY [facility] Last Admin: 09/08/18 09:33 Dose: 5 mg Gabapentin (Neurontin) 200 mg PO TID [facility] Last Admin: 09/08/18 17:12 Dose: 200 mg Heparin Sodium (Porcine) (Heparin) 5,000 units SC BID [facility] Last Admin: 09/08/18 17:12 Dose: 5,000 units Insulin Glargine (Lantus) 30 unit SC DAILY [facility] Last Admin: 09/08/18 09:35 Dose: 30 units Insulin Human Regular (Novolin R) 0 unit SC ACHS [facility]; Protocol Last Admin: 09/09/18 08:09 Dose: Not Given Lactobacillus Acidophilus (Bacid Acidophilus) 1 cap PO BID [facility] Last Admin: 09/08/18 17:12 Dose: 1 cap Lidocaine (Lidoderm) 1 ea TD DAILY [facility] Last Admin: 09/08/18 09:32 Dose: 1 ea Metoprolol Succinate (Toprol Xl) 50 mg PO DAILY [facility] Last Admin: 09/08/18 09:33 Dose: 50 mg Mupirocin (Bactroban Ointment) 0 gm TOP DAILY [facility] Last Admin: 09/08/18 09:35 Dose: 1 applic Polyethylene Glycol (Miralax) 17 gm PO MWF [facility] Last Admin: 09/06/18 11:20 Dose: Not Given Tamsulosin HCl (Flomax) 0.4 mg PO BID [facility] Last Admin: 09/08/18 17:12 Dose: 0.4 mg Vitamin A (Vitamin A & D Oint Ud Foilpak) 1 ea TOP BID [facility] Last Admin: 09/08/18 17:12 Dose: 1 ea - Labs Labs: 09/09/18 06:32 09/09/18 06:32 PT 15.6 SECONDS (9.7-12.2) H 07/21/18 20:28 INR 1.4 07/21/18 20:28 APTT 34 SECONDS (21-34) 07/21/18 20:28 - Constitutional Appears: Non-toxic, No Acute Distress - Head Exam Head Exam: ATRAUMATIC, NORMAL INSPECTION, NORMOCEPHALIC - Eye Exam Eye Exam: EOMI, Normal appearance - ENT Exam ENT Exam: Mucous Membranes Moist, Normal Exam Additional comments: erosion of L nare/malar region, present for > 1 year, clean dry bandage across mid face, no active bleeding or signs of infection - Neck Exam Neck Exam: Full ROM, Normal Inspection - Respiratory Exam Respiratory Exam: Clear to Ausculation Bilateral, NORMAL BREATHING PATTERN. ab sent: Accessory Muscle Use, Rales, Rhonchi, Wheezes, Respiratory Distress, Stridor - Cardiovascular Exam Cardiovascular Exam: REGULAR RHYTHM, +S1, +S2 - GI/Abdominal Exam GI & Abdominal Exam: Soft, Normal Bowel Sounds. absent: Distended, Firm, Guarding, Rigid, Tenderness, Organomegaly, Rebound - Extremities Exam Additional comments: b/l BKA - Back Exam Back Exam: Full ROM, NORMAL INSPECTION - Neurological Exam Neurological Exam: Alert, Awake, CN II-XII Intact, Oriented x3 - Psychiatric Exam Psychiatric exam: Normal Affect, Normal Mood - Skin Skin Exam: Dry, Intact, Normal Color, Warm Assessment and Plan - Assessment and Plan (Free Text) Assessment: 53 yo M with PMHx of b/l BKA 2/2 uncontrolled DM type II, HTN, L facial cellulitis/erosis presenting after being found unresponsive by at home. Blood Cx positive for S. aureus, found to have discitis. Patient underwent IV ancef treatment x 7 weeks, now on keflex 1g TID. CRP/ESR remains elevated. If patient remains stable, plan for d/c 09/11-09/12. He is without insurance and undocumented citizen, pending medicaid acceptance. Patient has already received wheelchair at bedside. Plan: Epidural Abscess and Discitis - Initial MRI L-spine: suspicious for discitis osteomyelitis involving L4-5 intervetebral disc w/ anterior epidural abscess, R iliopsoas fluid collection 1.5x1.9cm - Repeat MRI: Discitis-osteomyelitis seen at the L4-L5 level. There has been interval progression of edema within the vertebral bodies however the epidural phlegmonous changes appear to have diminished slightly. There also appears to be paraspinal soft tissue extension of phlegmonous changes maximally at the L4- L5 disc space and tapering of above and below this level. The phlegmonous changes do exert compressive effects on the ventral surface of the thecal sac with variable posterior displacement of the ventrally located intrathecal nerve roots of the cauda equina more so centrally and to the right along the superior border and to the centrally and to the left along its inferior border as detailed above. - Neurosurgery recs (Dr. Olivia/Dr Melara) appreciated -no acute surgical intervention at this time -continue with Abx - ID recs (Dr. Garcia) appreciated - trial of oral keflex 1g TID - completed 7 week course of ancef 2000mg IV q8h (09/06) - IR recs (Dr. Fragoso) appreciated - psoas collection and spinal abscess too small to drain - Lidoderm daily - Tylenol 650 mg PO Q6H PRN - Percocet 5/325 X2 tabs daily 30 mins prior physical therapy Anemia of chronic disease stable - Asymptomatic - Hgb stable in 8s - Ferrous sulfate 325 mg PO TID L Maxillofacial Ulcer stable - CT (07/25): soft tissue swelling, no osteomyelitis or drainable fluid - Patient had follow up with plastic surgeon at [facility] Sep 04 - informed patient the need to reschedule appointment - Patient has contact information - Wound care consulted - Mupirocin 2g top BID Constipation - Colace 100 mg PO TID - Miralax 17 g PO MWF Type 2 diabetes mellitus, chronic - A1c 8.9 - Lantus 30 units SC daily - ISS medium - Hypoglycemia protocol - Accuchecks ACHS - Gabapentin 200 mg PO TID - Despite persistent education of no sweet/sugar filled drinks, patient continues to have juices at bedside - Diabetic diet education referral Hypertension, chronic - ASA 81 mg PO daily - Enalapril 40 mg PO daily - Metoprolol succinate 50 mg PO daily - Norvasc 10mg PO daily Staph Aureus Bacteremia resolved - Likely source: spinal abscess - Initially: Blood Cx positive for Staph aureus (07/21); F/u Blood Cx negative 07/28 X 5 days - Urine Cx: no growth - Procal 14.74, Tmax 100.8 (08/01) - Tylenol 650 mg PO Q6H PRN - Echo: LV normal size and EF. LA mildly dilated. Mild TR - F/u cardio, Dr. Ge recs: - consider KASH if BCx+ in future, signed off - F/u ID, Dr. Garcia recs: - completed 7 weeks IV abx - trial of keflex 1g TID, if stable, then D/C Urinary Retention resolved - CT A/P: bladder wall thickening (cystitis), b/l renal parenchymal high density may be underlying metabolic disorder - I/Os - Flomax 0.4mg PO BID - Finasteride 5mg PO daily - Urology consulted: E. Negin - maintain sagastume until outpatient follow - Sagastume placed 07/27 D/C'ed @ 10 AM on 08/13, patient has been urinating freely Dysuria resolved - UA - leuko esterase 2+, WBC 50, squamous 1+ - UC - yeast species > [id number] cfu/ml - Completed fluconazole 100 mg PO daily X 7 fdays - Completed Pyridium 100 mg TIDPC for 2 days for symptom relief Community acquired pneumonia resolved - CXR (08/06): no active disease - CT A/P: LLL consolidation vs atelectasis - Discontinue Ancef 2000mg IV q8h (07/25) Unresponsiveness resolved - patient is alert and oriented x 3 - EEG: nonspecific abnormalities, no seizures noted - CT head: no acute findings - CTA head and neck: no significant stenoses or abnormalities - PRL wnl (12.9) - Gabapentin 100 mg PO TID - Neurology consulted: Manda - no need for anticonvulsant at this time PPx, Diet, Disposition -DVT ppx: Heparin 5000 units BID -GI ppx: Pepcid 20 mg PO daily -Diet: diabetic consistent -Vit A&D -Code status: full code -Dispo: currently on PO abx, likely d/c 09/11-09/12 if labs/vitals remain stable Case discussed with Dr. Veena Chase DO, PGY-1
[2018-09-09] MEDS: POLYETHYLENE GLYCOL 3350 17 GM/Dose PACKET PO SCH (08:28)
[2018-09-09] MEDS: Metoprolol Succinate 50 mg XL Tab PO SCH (09:23)
[2018-09-09] MEDS: Vitamins A & D Oint UD Foilpak TOP SCH ×2 (09:23→17:58)
[2018-09-09] MEDS: Lactobacillus Acidophilus 500 MU Cap PO SCH ×2 (09:24→17:59)
[2018-09-09] MEDS: (Lantus) Insulin Glargine, Recombinant SC SCH (09:24)
[2018-09-09] MEDS: Lidocaine 5% Patch TD SCH (09:29)
[2018-09-10 06:59] LABS: BASO # 0.1 K/uL (0.0-0.2); BASO % 0.7 % (0.0-2.0); EOS # 0.5 K/uL (0.0-0.7); EOS % 5.4 % (0.0-4.0); HEMOGLOBIN 8.2 g/dL (12.0-18.0); LYMPH # 1.6 K/uL (1.0-4.3); LYMPH % 18.4 % (20.0-40.0); MEAN CELL VOLUME 87.9 fL (80.0-94.0); MEAN CORPUSCULAR HGB CONC 34.1 g/dL (33.0-37.0); MEAN PLATELET VOLUME 8.5 fL (7.2-11.7); MONO # 0.6 K/uL (0.0-0.8); MONO % 7.3 % (0.0-10.0); NEUT % 68.2 % (50.0-75.0); RBC 2.72 Mil/uL (4.40-5.90); RED CELL DISTRIBUTION WIDTH 14.5 % (11.5-14.5); WHITE BLOOD COUNT 8.9 K/uL (4.8-10.8)
[2018-09-10 07:28] LABS: ALB/GLOB RATIO 0.8 (1.0-2.1); ALBUMIN 3.1 g/dL (3.5-5.0); ALT/SGPT 9 U/L (21-72); AST/SGOT 21 U/L (17-59); BLOOD UREA NITROGEN 37 mg/dL (9-20); CALCIUM 8.6 mg/dl (8.6-10.4); GFR NON-AFRICAN AMERICAN > 60
--- NOTE | 2018-09-10 07:40 | CP.PCM.PN ---
<Ward Chase - Last Filed: 09/10/18 13:26> Subjective - Date & Time of Evaluation Date of Evaluation: 09/10/18 Time of Evaluation: 07:40 - Subjective Subjective: PGY-1 Medicine Progress Note for Dr. Curiel Patient seen and examined at bedside this AM, resting comfortably and watching tv. No acute overnight events reported. Denies fevers/chills, headaches, dizziness, chest pain, palpitations, shortness of breath, cough, abdominal pain, n/v/d/c, dysuria, or changes in stool. Objective - Vital Signs/Intake and Output Vital Signs (last 24 hours): Temp Pulse Resp BP Pulse Ox 98.3 F 82 20 119/68 96 09/10/18 00:00 09/10/18 00:00 09/10/18 00:00 09/10/18 00:00 09/10/18 00:00 Intake and Output: 09/10/18 09/10/18 06:59 18:59 Intake Total 450 420 Balance 450 420 - Medications Medications: Current Medications Acetaminophen (Tylenol 325mg Tab) 650 mg PO Q6 PRN PRN Reason: Fever >100.4 or Pain Last Admin: 09/03/18 09:50 Dose: 650 mg Amlodipine Besylate (Norvasc) 10 mg PO DAILY [facility] Last Admin: 09/09/18 09:23 Dose: 10 mg Aspirin (Ecotrin) 81 mg PO DAILY [facility] Last Admin: 09/09/18 09:22 Dose: 81 mg Cephalexin Monohydrate (Keflex) 1,000 mg PO TID [facility]; Protocol Last Admin: 09/09/18 17:59 Dose: 1,000 mg Docusate Sodium (Colace) 100 mg PO TID [facility] Last Admin: 09/09/18 17:57 Dose: 100 mg Enalapril Maleate (Vasotec) 40 mg PO DAILY [facility] Last Admin: 09/09/18 09:23 Dose: 40 mg Famotidine (Pepcid) 20 mg PO DAILY [facility] Last Admin: 09/09/18 09:22 Dose: 20 mg Ferrous Sulfate (Feosol) 325 mg PO TID [facility] Last Admin: 09/09/18 17:56 Dose: 325 mg Finasteride (Proscar) 5 mg PO DAILY [facility] Last Admin: 09/09/18 09:23 Dose: 5 mg Gabapentin (Neurontin) 200 mg PO TID [facility] Last Admin: 09/09/18 17:58 Dose: 200 mg Heparin Sodium (Porcine) (Heparin) 5,000 units SC BID [facility] Last Admin: 09/09/18 17:58 Dose: 5,000 units Insulin Glargine (Lantus) 30 unit SC DAILY [facility] Last Admin: 09/09/18 09:24 Dose: 30 units Insulin Human Regular (Novolin R) 0 unit SC ACHS [facility]; Protocol Last Admin: 09/09/18 21:28 Dose: Not Given Lactobacillus Acidophilus (Bacid Acidophilus) 1 cap PO BID [facility] Last Admin: 09/09/18 17:59 Dose: 1 cap Lidocaine (Lidoderm) 1 ea TD DAILY [facility] Last Admin: 09/09/18 09:29 Dose: 1 ea Metoprolol Succinate (Toprol Xl) 50 mg PO DAILY [facility] Last Admin: 09/09/18 09:23 Dose: 50 mg Mupirocin (Bactroban Ointment) 0 gm TOP DAILY [facility] Last Admin: 09/09/18 09:53 Dose: 1 applic Polyethylene Glycol (Miralax) 17 gm PO MWF [facility] Last Admin: 09/09/18 08:28 Dose: 17 gm Tamsulosin HCl (Flomax) 0.4 mg PO BID [facility] Last Admin: 09/09/18 17:57 Dose: 0.4 mg Vitamin A (Vitamin A & D Oint Ud Foilpak) 1 ea TOP BID [facility] Last Admin: 09/09/18 17:58 Dose: 1 ea - Labs Labs: 09/10/18 06:48 09/10/18 06:48 PT 15.6 SECONDS (9.7-12.2) H 07/21/18 20:28 INR 1.4 07/21/18 20:28 APTT 34 SECONDS (21-34) 07/21/18 20:28 - Constitutional Appears: Non-toxic, No Acute Distress - Head Exam Head Exam: ATRAUMATIC, NORMAL INSPECTION, NORMOCEPHALIC - Eye Exam Eye Exam: EOMI, Normal appearance, PERRL - ENT Exam ENT Exam: Mucous Membranes Moist, Normal Exam Additional comments: erosion of L nare/malar region, present for > 1 year, clean dry bandage across mid face, no active bleeding or signs of infection - Neck Exam Neck Exam: Full ROM, Normal Inspection - Respiratory Exam Respiratory Exam: Clear to Ausculation Bilateral, NORMAL BREATHING PATTERN. absent: Accessory Muscle Use, Rales, Rhonchi, Wheezes, Respiratory Distress, Stridor - Cardiovascular Exam Cardiovascular Exam: REGULAR RHYTHM, +S1, +S2 - GI/Abdominal Exam GI & Abdominal Exam: Soft, Normal Bowel Sounds. 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 Blood Cx positive for S. aureus, found to have discitis. Patient underwent IV ancef treatment x 7 weeks, now on keflex 1g TID. CRP/ESR remains elevated. If patient remains stable, plan for d/c 09/11-09/12. He is without insurance and undocumented citizen, pending medicaid acceptance. Patient has already received wheelchair at bedside. Plan: Epidural Abscess and Discitis - Initial MRI L-spine: suspicious for discitis osteomyelitis involving L4-5 intervetebral disc w/ anterior epidural abscess, R iliopsoas fluid collection 1.5x1.9cm - Repeat MRI: Discitis-osteomyelitis seen at the L4-L5 level. There has been interval progression of edema within the vertebral bodies however the epidural phlegmonous changes appear to have diminished slightly. There also appears to be paraspinal soft tissue extension of phlegmonous changes maximally at the L4- L5 disc space and tapering of above and below this level. The phlegmonous changes do exert compressive effects on the ventral surface of the thecal sac with variable posterior displacement of the ventrally located intrathecal nerve roots of the cauda equina more so centrally and to the right along the superior border and to the centrally and to the left along its inferior border as detailed above. - Neurosurgery recs (Dr. Olivia/Dr Melara) appreciated -no acute surgical intervention at this time -continue with Abx - ID recs (Dr. Garcia) appreciated - trial of oral keflex 1g TID - completed 7 week course of ancef 2000mg IV q8h (09/06) - IR recs (Dr. Fragoso) appreciated - psoas collection and spinal abscess too small to drain - Lidoderm daily - Tylenol 650 mg PO Q6H PRN - Percocet 5/325 X2 tabs daily 30 mins prior physical therapy Anemia of chronic disease stable - Asymptomatic - Hb remains stable, continue to monitor - Ferrous sulfate 325 mg PO TID L Maxillofacial Ulcer stable - CT (07/25): soft tissue swelling, no osteomyelitis or drainable fluid - Patient had follow up with plastic surgeon at [facility] Sep 04 - informed patient the need to reschedule appointment - Patient has contact information - Wound care consulted - Mupirocin 2g top BID Constipation - Colace 100 mg PO TID - Miralax 17 g PO MWF Type 2 diabetes mellitus, chronic - A1c 8.9 - Lantus 30 units SC daily - ISS medium - Hypoglycemia protocol - Accuchecks ACHS - Gabapentin 200 mg PO TID - Despite persistent education of no sweet/sugar filled drinks, patient continues to have juices at bedside - Diabetic diet education referral Hypertension, chronic - ASA 81 mg PO daily - Enalapril 40 mg PO daily - Metoprolol succinate 50 mg PO daily - Norvasc 10mg PO daily Staph Aureus Bacteremia resolved - Likely source: spinal abscess - Initially: Blood Cx positive for Staph aureus (07/21); F/u Blood Cx negative 07/28 X 5 days - Urine Cx: no growth - Procal 14.74, Tmax 100.8 (08/01) - Tylenol 650 mg PO Q6H PRN - Echo: LV normal size and EF. LA mildly dilated. Mild TR - F/u cardio, Dr. Ge recs: - consider KASH if BCx+ in future, signed off - F/u ID, Dr. Garcia recs: - completed 7 weeks IV abx - trial of keflex 1g TID, if stable, then D/C Urinary Retention resolved - CT A/P: bladder wall thickening (cystitis), b/l renal parenchymal high density may be underlying metabolic disorder - I/Os - Flomax 0.4mg PO BID - Finasteride 5mg PO daily - Urology consulted: Titi Kam - maintain sagastume until outpatient follow - Sagastume placed 07/27 D/C'ed @ 10 AM on 08/13, patient has been urinating freely Dysuria resolved - UA - leuko esterase 2+, WBC 50, squamous 1+ - UC - yeast species > [id number] cfu/ml - Completed fluconazole 100 mg PO daily X 7 fdays - Completed Pyridium 100 mg TIDPC for 2 days for symptom relief Community acquired pneumonia resolved - CXR (08/06): no active disease - CT A/P: LLL consolidation vs atelectasis - Discontinue Ancef 2000mg IV q8h (07/25) Unresponsiveness resolved - patient is alert and oriented x 3 - EEG: nonspecific abnormalities, no seizures noted - CT head: no acute findings - CTA head and neck: no significant stenoses or abnormalities - PRL wnl (12.9) - Gabapentin 100 mg PO TID - Neurology consulted: Manda - no need for anticonvulsant at this time PPx, Diet, Disposition -DVT ppx: Heparin 5000 units BID -GI ppx: Pepcid 20 mg PO daily -Diet: diabetic consistent -Vit A&D -Code status: full code -Disposition: currently on PO Keflex trial, likely d/c 09/11-09/12 if la bs/vitals remain stable Case discussed with Dr. Veena Chase DO, PGY-1 <Mila Curiel - Last Filed: 09/11/18 19:50> Objective - Vital Signs/Intake and Output Vital Signs (last 24 hours): Temp Pulse Resp BP Pulse Ox 98 F 81 20 153/78 H 97 09/10/18 08:45 09/10/18 08:45 09/10/18 08:45 09/10/18 09:38 09/10/18 08:45 Intake and Output: 09/10/18 09/10/18 06:59 18:59 Intake Total 450 420 Balance 450 420 - Medications Medications: Current Medications Acetaminophen (Tylenol 325mg Tab) 650 mg PO Q6 PRN PRN Reason: Fever >100.4 or Pain Last Admin: 09/03/18 09:50 Dose: 650 mg Amlodipine Besylate (Norvasc) 10 mg PO DAILY [facility] Last Admin: 09/10/18 09:39 Dose: 10 mg Aspirin (Ecotrin) 81 mg PO DAILY [facility] Last Admin: 09/10/18 09:38 Dose: 81 mg Cephalexin Monohydrate (Keflex) 1,000 mg PO TID [facility]; Protocol Last Admin: 09/10/18 13:07 Dose: 1,000 mg Docusate Sodium (Colace) 100 mg PO TID [facility] Last Admin: 09/10/18 13:07 Dose: 100 mg Enalapril Maleate (Vasotec) 40 mg PO DAILY [facility] Last Admin: 09/10/18 09:38 Dose: 40 mg Famotidine (Pepcid) 20 mg PO DAILY [facility] Last Admin: 09/10/18 09:38 Dose: 20 mg Ferrous Sulfate (Feosol) 325 mg PO TID [facility] Last Admin: 09/10/18 13:07 Dose: 325 mg Finasteride (Proscar) 5 mg PO DAILY [facility] Last Admin: 09/10/18 09:37 Dose: 5 mg Gabapentin (Neurontin) 200 mg PO TID [facility] Last Admin: 09/10/18 13:07 Dose: 200 mg Heparin Sodium (Porcine) (Heparin) 5,000 units SC BID [facility] Last Admin: 09/10/18 09:38 Dose: 5,000 units Insulin Glargine (Lantus) 30 unit SC DAILY [facility] Last Admin: 09/10/18 09:36 Dose: 30 units Insulin Human Regular (Novolin R) 0 unit SC [facility]; Protocol Last Admin: 09/10/18 13:02 Dose: 4 units Lactobacillus Acidophilus (Bacid Acidophilus) 1 cap PO BID [facility] Last Admin: 09/10/18 09:39 Dose: 1 cap Lidocaine (Lidoderm) 1 ea TD DAILY [facility] Last Admin: 09/10/18 09:35 Dose: 1 ea Metoprolol Succinate (Toprol Xl) 50 mg PO DAILY [facility] Last Admin: 09/10/18 09:39 Dose: 50 mg Mupirocin (Bactroban Ointment) 0 gm TOP DAILY [facility] Last Admin: 09/10/18 09:39 Dose: 1 applic Polyethylene Glycol (Miralax) 17 gm PO MWF [facility] Last Admin: 09/09/18 08:28 Dose: 17 gm Tamsulosin HCl (Flomax) 0.4 mg PO BID [facility] Last Admin: 09/10/18 09:38 Dose: 0.4 mg Vitamin A (Vitamin A & D Oint Ud Foilpak) 1 ea TOP BID [facility] Last Admin: 09/10/18 09:39 Dose: 1 ea - Labs Labs: 09/10/18 06:48 09/10/18 06:48 PT 15.6 SECONDS (9.7-12.2) H 07/21/18 20:28 INR 1.4 07/21/18 20:28 APTT 34 SECONDS (21-34) 07/21/18 20:28 Attending/Attestation - Attestation I have personally seen and examined this patient.: Yes I have fully participated in the care of the patient.: Yes I have reviewed all pertinent clinical information, including history, physical exam and plan: Yes Notes (Text): Patient was seen lying on bed without discomfort. Denies pain,no fever,on oral antibiotics. Possible discharge tomorrow. We will discuss with Dr Garcia about discharge antibiotics d/w resident
[2018-09-10] MEDS: (Novolin R) Insulin Human Regular 100 units/ml vial SC SCH ×4 (08:00→22:30)
[2018-09-10] MEDS: Lidocaine 5% Patch TD SCH (09:35)
[2018-09-10] MEDS: (Lantus) Insulin Glargine, Recombinant SC SCH (09:36)
[2018-09-10] MEDS: Metoprolol Succinate 50 mg XL Tab PO SCH (09:39)
[2018-09-10] MEDS: Lactobacillus Acidophilus 500 MU Cap PO SCH ×2 (09:39→17:56)
[2018-09-10] MEDS: Vitamins A & D Oint UD Foilpak TOP SCH ×2 (09:39→18:00)
[2018-09-11 06:35] LABS: BASO # 0.1 K/uL (0.0-0.2); BASO % 0.7 % (0.0-2.0); EOS # 0.5 K/uL (0.0-0.7); EOS % 6.1 % (0.0-4.0); HEMOGLOBIN 8.2 g/dL (12.0-18.0); LYMPH # 1.8 K/uL (1.0-4.3); LYMPH % 20.3 % (20.0-40.0); MEAN CELL VOLUME 88.7 fL (80.0-94.0); MEAN CORPUSCULAR HEMOGLOBIN 30.1 pg (27.0-31.0); MEAN CORPUSCULAR HGB CONC 33.9 g/dL (33.0-37.0); MEAN PLATELET VOLUME 8.9 fL (7.2-11.7); MONO # 0.7 K/uL (0.0-0.8); MONO % 7.9 % (0.0-10.0); NEUT # 5.7 K/uL (1.8-7.0); RBC 2.72 Mil/uL (4.40-5.90); RED CELL DISTRIBUTION WIDTH 14.9 % (11.5-14.5); WHITE BLOOD COUNT 8.7 K/uL (4.8-10.8)
[2018-09-11 06:55] LABS: ALB/GLOB RATIO 0.8 (1.0-2.1); ALBUMIN 3.2 g/dL (3.5-5.0); ALT/SGPT 8 U/L (21-72); AST/SGOT 11 U/L (17-59); BLOOD UREA NITROGEN 31 mg/dL (9-20); CALCIUM 8.7 mg/dl (8.6-10.4); GFR NON-AFRICAN AMERICAN > 60
[2018-09-11] MEDS: (Novolin R) Insulin Human Regular 100 units/ml vial SC SCH ×3 (08:24→17:13)
[2018-09-11] MEDS: Lidocaine 5% Patch TD SCH (09:48)
[2018-09-11] MEDS: (Lantus) Insulin Glargine, Recombinant SC SCH (09:48)
[2018-09-11] MEDS: POLYETHYLENE GLYCOL 3350 17 GM/Dose PACKET PO SCH (09:48)
[2018-09-11] MEDS: Vitamins A & D Oint UD Foilpak TOP SCH ×2 (09:49→17:18)
[2018-09-11] MEDS: Metoprolol Succinate 50 mg XL Tab PO SCH (09:49)
[2018-09-11] MEDS: Lactobacillus Acidophilus 500 MU Cap PO SCH ×2 (09:51→17:17)
--- NOTE | 2018-09-11 09:53 | CP.PCM.DIS ---
<Ward Chase - Last Filed: 09/11/18 14:40> Provider - Provider Date of Admission: 07/21/18 21:50 Attending physician: Mila Curiel MD Consults: 07/21/18 20:30 Stroke Team Consult Stat Comment: Consulting Provider: Neurohospitalist Consulting Physician: NEUROHOSP Neurohospitalist for Consult: Elvis Holman Neurohospitalist for Consult: Danny Jaime Reason for Consult: code stroke 07/21/18 22:31 Critical Care Consult Routine Comment: Consulting Provider: Guanakito Henderson Consulting Physician: Guanakito Henderson Reason for Consult: intubated, acute respiratory failure 07/22/18 12:14 Neurology Consult Routine Comment: Consulting Provider: Elvis Holman Consulting Physician: Elvis Holman Reason for Consult: code stroke 07/22/18 19:13 Infectious Disease Consult Routine Comment: Consulting Provider: Bari Garcia Consulting Physician: Bari Garcia Reason for Consult: GPC bacteremia 07/23/18 08:42 Wound Care [Nursing Referral for Wound Care] Routine Comment: Physician Instructions: Reason For Exam: L facial erosion 07/24/18 10:46 Urology Consult Routine Comment: Consulting Provider: Yoandy Kam Consulting Physician: Yoandy Kam Reason for Consult: urinary retention 07/31/18 13:12 Physician Consult Routine Comment: Consulting Provider: Brigitte Fragoso Consulting Physician: Brigitte Fragoso Reason for Consult: pt with MSSA bacteremia and lumbar MRI with L4/5 abscess Additional Comments: epidural fluid collection and R iliopsoas fluid collection 07/31/18 13:48 Cardiology Consult Routine Comment: Consulting Provider: Nilo Ge Consulting Physician: Nilo Ge Reason for Consult: Please see for KASH/bacteremia, facial and spinal abscesses 07/31/18 15:30 Physician Consult Routine Comment: Consulting Provider: Srikanth Olivia Consulting Physician: Srikanth Olivia Reason for Consult: pt w bacteremia, MRI shows epidural abscess L4/5 09/04/18 12:15 Physician Consult Routine Comment: Consulting Provider: Srikanth Olivia Consulting Physician: Srikanth Olivia Reason for Consult: persistent osteomyelitis @ l4-L5 along w/ phlegmonous changes Time Spent in preparation of Discharge (in minutes): 40 Hospital Course - Lab Results Lab Results: Micro Results 08/17/18 07:30 Urine Urine Culture - Final Yeast Species 08/05/18 22:13 Naris MRSA Culture - Final MRSA NOT DETECTED 07/28/18 13:45 Blood-Venous Blood Culture - Final NO GROWTH AFTER 5 DAYS 07/28/18 13:45 Blood-Venous Gram Stain - Final TEST NOT PERFORMED 07/25/18 14:37 Naris MRSA Culture (Admit) - Final MRSA NOT DETECTED 07/23/18 11:41 Urine,Clean Catch Urine Culture - Final No Growth (<1,000 CFU/ML) 07/21/18 20:30 Blood Blood Culture - Final Staphylococcus Aureus 07/21/18 20:30 Blood Gram Stain - Final 07/21/18 21:00 Blood S.aureus & Coag-Neg Staph PNA FISH - Final 07/21/18 21:00 Blood Blood Culture - Final Staphylococcus Aureus 07/21/18 21:00 Blood Gram Stain - Final 07/22/18 11:41 Urine,Jin Urine Culture - Final No Growth (<1,000 CFU/ML) 07/21/18 06:00 Naris MRSA Culture (Admit) - Final MRSA NOT DETECTED Most Recent Lab Values WBC 8.7 K/uL (4.8-10.8) 09/11/18 06:20 RBC 2.72 Mil/uL (4.40-5.90) L 09/11/18 06:20 Hgb 8.2 g/dL (12.0-18.0) L 09/11/18 06:20 Hct 24.1 % (35.0-51.0) L 09/11/18 06:20 MCV 88.7 fL (80.0-94.0) 09/11/18 06:20 MCH 30.1 pg (27.0-31.0) 09/11/18 06:20 MCHC 33.9 g/dL (33.0-37.0) 09/11/18 06:20 RDW 14.9 % (11.5-14.5) H 09/11/18 06:20 Plt Count 329 K/uL (130-400) 09/11/18 06:20 MPV 8.9 fL (7.2-11.7) 09/11/18 06:20 Neut % (Auto) 65.0 % (50.0-75.0) 09/11/18 06:20 Lymph % (Auto) 20.3 % (20.0-40.0) 09/11/18 06:20 Haralson % (Auto) 7.9 % (0.0-10.0) 09/11/18 06:20 Eos % (Auto) 6.1 % (0.0-4.0) H 09/11/18 06:20 Baso % (Auto) 0.7 % (0.0-2.0) 09/11/18 06:20 Neut # (Auto) 5.7 K/uL (1.8-7.0) 09/11/18 06:20 Lymph # (Auto) 1.8 K/uL (1.0-4.3) 09/11/18 06:20 Haralson # (Auto) 0.7 K/uL (0.0-0.8) 09/11/18 06:20 Eos # (Auto) 0.5 K/uL (0.0-0.7) 09/11/18 06:20 Baso # (Auto) 0.1 K/uL (0.0-0.2) 09/11/18 06:20 Neutrophils % (Manual) 83 % (50-75) H 07/26/18 08:12 Band Neutrophils % 2 % (0-2) 07/26/18 08:12 Lymphocytes % (Manual) 8 % (20-40) L 07/26/18 08:12 Monocytes % (Manual) 1 % (0-10) 07/26/18 08:12 Eosinophils % (Manual) 6 % (0-4) H 07/26/18 08:12 Platelet Estimate Slightly increased (NORMAL) H 07/26/18 08:12 Polychromasia Slight 07/26/18 08:12 Hypochromasia (manual) Slight 07/26/18 08:12 Poikilocytosis (manual Slight 07/23/18 06:28 Anisocytosis (manual) Slight 07/23/18 06:28 Tear Drop Cells Slight 07/23/18 06:28 ESR 145 mm/hr (0-15) H 09/05/18 06:34 PT 15.6 SECONDS (9.7-12.2) H 07/21/18 20:28 INR 1.4 07/21/18 20:28 APTT 34 SECONDS (21-34) 07/21/18 20:28 Puncture Site L rad 07/22/18 05:46 pCO2 28 mm/Hg (35-45) L 07/22/18 05:46 pO2 183 mm/Hg (80-100) H 07/22/18 05:46 HCO3 20.6 mmol/L (21-28) L 07/22/18 05:46 ABG pH 7.42 (7.35-7.45) 07/22/18 05:46 ABG Total CO2 19.1 mmol/L (22-28) L 07/22/18 05:46 ABG O2 Saturation 95.9 % (95-98) 07/22/18 05:46 ABG Base Excess -5.5 mmol/L (-2.0-3.0) L 07/22/18 05:46 ABG Hemoglobin 8.0 g/dL (11.7-17.4) L 07/22/18 05:46 ABG Carboxyhemoglobin 0 % (0.5-1.5) L 07/22/18 05:46 POC ABG HHb (Measured) 4.1 % (0.0-5.0) 07/22/18 05:46 ABG Methemoglobin 0.0 % (0.0-3.0) 07/22/18 05:46 Flaco Test Pos 07/22/18 05:46 ABG Potassium 2.9 mmol/L (3.6-5.2) L 07/21/18 20:30 A-a O2 Difference 67.0 mm/Hg 07/22/18 05:46 Respiratory Index 0.4 07/22/18 05:46 Hgb O2 Saturation 95.9 % (95.0-98.0) 07/22/18 05:46 Sodium 128.0 mmol/l (132-148) L 07/21/18 20:30 Chloride 100.0 mmol/L (98-107) 07/21/18 20:30 Glucose 90 mg/dl (75-110) 07/21/18 20:30 Lactate 0.8 mmol/L (0.7-2.1) 07/21/18 20:30 Vent Mode Prvc 07/22/18 05:46 Mechanical Rate 16 07/22/18 05:46 FiO2 40.0 % 07/22/18 05:46 Tidal Volume 500 07/22/18 05:46 PEEP 5 07/22/18 05:46 Sodium 135 mmol/L (132-148) 09/11/18 06:20 Potassium 4.8 mmol/L (3.6-5.2) 09/11/18 06:20 Chloride 103 mmol/L (98-107) 09/11/18 06:20 Carbon Dioxide 25 mmol/L (22-30) 09/11/18 06:20 Anion Gap 11 (10-20) 09/11/18 06:20 BUN 31 mg/dL (9-20) H 09/11/18 06:20 Creatinine 0.8 mg/dL (0.8-1.5) 09/11/18 06:20 Est GFR ( Amer) > 60 09/11/18 06:20 Est GFR (Non-Af Amer) > 60 09/11/18 06:20 POC Glucose (mg/dL) 163 mg/dL (65-110) H 09/11/18 07:19 Random Glucose 172 mg/dL (75-110) H 09/11/18 06:20 Hemoglobin A1c 8.9 % (4.2-6.5) H 07/21/18 20:31 Serum Osmolality 297 mosm/kg (272-300) 07/30/18 17:00 Calcium 8.7 mg/dl (8.6-10.4) 09/11/18 06:20 Phosphorus 5.1 mg/dL (2.5-4.5) H 09/05/18 06:34 Magnesium 2.0 mg/dL (1.6-2.3) 09/05/18 06:34 Iron 19 ug/dL (49-181) L 08/02/18 07:17 TIBC 239 ug/dL (250-450) L 08/01/18 19:41 % Saturation 8 (20-55) L 08/02/18 07:17 Total Bilirubin 0.1 mg/dL (0.2-1.3) L 09/11/18 06:20 AST 11 U/L (17-59) L D 09/11/18 06:20 ALT 8 U/L (21-72) L 09/11/18 06:20 Alkaline Phosphatase 156 U/L (38-126) H 09/11/18 06:20 Total Creatine Kinase < 20 U/L (55-170) L 08/07/18 07:11 Troponin I < 0.0120 ng/mL (0.00-0.120) 07/26/18 09:50 C-React Prot High Sens > 15.00 mg/L (1.00-3.00) H 09/05/18 06:34 NT-Pro-B Natriuret Pep 216 pg/mL (0-900) 07/21/18 20:28 Total Protein 7.2 g/dL (6.3-8.3) 09/11/18 06:20 Albumin 3.2 g/dL (3.5-5.0) L 09/11/18 06:20 Globulin 4.0 gm/dL (2.2-3.9) H 09/11/18 06:20 Albumin/Globulin Ratio 0.8 (1.0-2.1) L 09/11/18 06:20 Triglycerides 263 mg/dL (0-149) H 07/21/18 20:28 Cholesterol 121 mg/dL (0-199) 07/21/18 20:28 LDL Cholesterol Direct 42 mg/dL (0-129) 07/21/18 20:28 HDL Cholesterol 15 mg/dL (30-70) L 07/21/18 20:28 Lipase 32 U/L (23-300) 07/21/18 20:28 Procalcitonin < 0.05 NG/ML (0.19-0.49) L 09/05/18 06:34 Prolactin 12.9 ng/mL (3.7-17.9) 07/22/18 05:56 Arterial Blood Potassium 2.9 mmol/L (3.6-5.2) L 07/21/18 20:30 Urine Color Yellow (YELLOW) 08/17/18 07:30 Urine Clarity Hazy (Clear) 08/17/18 07:30 Urine pH 6.0 (5.0-8.0) 08/17/18 07:30 Ur Specific Sidney 1.015 (1.003-1.030) 08/17/18 07:30 Urine Protein 2+ mg/dL (NEGATIVE) H 08/17/18 07:30 Urine Glucose (UA) Normal mg/dL (Normal) 08/17/18 07:30 Urine Ketones Negative mg/dL (NEGATIVE) 08/17/18 07:30 Urine Blood Negative (NEGATIVE) 08/17/18 07:30 Urine Nitrate Negative (NEGATIVE) 08/17/18 07:30 Urine Bilirubin Negative (NEGATIVE) 08/17/18 07:30 Urine Urobilinogen Normal mg/dL (0.2-1.0) 08/17/18 07:30 Ur Leukocyte Esterase 2+ Jana/uL (Negative) H 08/17/18 07:30 Urine WBC (Auto) 50 /hpf (0-5) H 08/17/18 07:30 Urine RBC (Auto) 9 /hpf (0-3) H 08/17/18 07:30 Ur Squamous Epith Cells 1 /hpf (0-5) 08/17/18 07:30 Urine Bacteria Rare (<OCC) 08/17/18 07:30 Urine Osmolality 454 mosm/kg (300-1000) 07/30/18 18:03 Ur Random Sodium 83 mmol/L 07/24/18 09:07 Ur Random Potassium 20.9 mmol/L 07/24/18 11:00 Urine Collection Time 24 HRS 07/31/18 14:53 Urine Total Volume 2050 mL 07/31/18 14:53 Ur Sodium 24 Hour 203.0 mmol/L (40-220) 07/31/18 14:53 Vancomycin Trough 14.8 ug/mL (5.0-10.0) H 07/24/18 06:15 Urine Opiates Screen Negative (NEGATIVE) 07/21/18 22:03 Urine Methadone Screen Negative (NEGATIVE) 07/21/18 22:03 Ur Barbiturates Screen Negative (NEGATIVE) 07/21/18 22:03 Ur Phencyclidine Scrn Negative (NEGATIVE) 07/21/18 22:03 Ur Amphetamines Screen Negative (NEGATIVE) 07/21/18 22:03 U Benzodiazepines Scrn Negative (NEGATIVE) 07/21/18 22:03 U Oth Cocaine Metabols Negative (NEGATIVE) 07/21/18 22:03 U Cannabinoids Screen Negative (NEGATIVE) 07/21/18 22:03 IgG 1815 mg/dL (694-1618) H 09/05/18 19:30 IgA 463 mg/dL (81-463) 09/05/18 19:30 IgM 49 mg/dL (48-271) 09/05/18 19:30 Serum Immunofixation Detected (Not Detected) H 09/05/18 19:30 Blood Type O POSITIVE 07/21/18 21:25 Antibody Screen Negative 07/21/18 21:25 - Hospital Course Hospital Course: HPI: History obtained from previous records as patient is presently intubated and no family is at bedside. 53 Male with past medical history including uncontrolled diabetes mellitus, hypertension, history of cellulitis with erosion of left nostril into cartilage was last seen responsive at 3pm by . About 45 minutes later, patients return to find patient unresponsive, gurgling. Patient was intubated onsite by EMS w/ paralytics Patient remains intubated at time of examination, unable to speak. The following is a summary of extensive hospital course. For full detail, please refer to EMR: Epidural Abscess and Discitis - Initial MRI L-spine: suspicious for discitis osteomyelitis involving L4-5 intervetebral disc w/ anterior epidural abscess, R iliopsoas fluid collection 1.5x1.9cm - Repeat MRI: Discitis-osteomyelitis seen at the L4-L5 level. There has been interval progression of edema within the vertebral bodies however the epidural phlegmonous changes appear to have diminished slightly. There also appears to be paraspinal soft tissue extension of phlegmonous changes maximally at the L4- L5 disc space and tapering of above and below this level. The phlegmonous changes do exert compressive effects on the ventral surface of the thecal sac with variable posterior displacement of the ventrally located intrathecal nerve roots of the cauda equina more so centrally and to the right along the superior border and to the centrally and to the left along its inferior border as detailed above. - Neurosurgery recs (Dr. Olivia/Dr Melara) appreciated -no acute surgical intervention at this time -continue with Abx - ID recs (Dr. Garcia) appreciated - trial of oral keflex 1g TID - completed 7 week course of ancef 2000mg IV q8h (09/06) - IR recs (Dr. Fragoso) appreciated - psoas collection and spinal abscess too small to drain - Lidoderm daily - Tylenol 650 mg PO Q6H PRN - Percocet 5/325 X2 tabs daily 30 mins prior physical therapy Anemia of chronic disease stable - Asymptomatic - Hb remains stable, continue to monitor - Ferrous sulfate 325 mg PO TID L Maxillofacial Ulcer stable - CT (07/25): soft tissue swelling, no osteomyelitis or drainable fluid - Patient had follow up with plastic surgeon at [facility] Sep 04 - informed patient the need to reschedule appointment - Patient has contact information - Wound care consulted - Mupirocin 2g top BID Constipation - Colace 100 mg PO TID - Miralax 17 g PO MWF Type 2 diabetes mellitus, chronic - A1c 8.9 - Lantus 30 units SC daily - ISS medium - Hypoglycemia protocol - Accuchecks ACHS - Gabapentin 200 mg PO TID - Despite persistent education of no sweet/sugar filled drinks, patient continues to have juices at bedside - Diabetic diet education referral Hypertension, chronic - ASA 81 mg PO daily - Enalapril 40 mg PO daily - Metoprolol succinate 50 mg PO daily - Norvasc 10mg PO daily Staph Aureus Bacteremia resolved - Likely source: spinal abscess - Initially: Blood Cx positive for Staph aureus (07/21); F/u Blood Cx negative 07/28 X 5 days - Urine Cx: no growth - Procal 14.74, Tmax 100.8 (08/01) - Tylenol 650 mg PO Q6H PRN - Echo: LV normal size and EF. LA mildly dilated. Mild TR - F/u cardio, Dr. Ge recs: - consider KASH if BCx+ in future, signed off - F/u ID, Dr. Garcia recs: - completed 7 weeks IV abx - trial of keflex 1g TID, if stable, then D/C Urinary Retention resolved - CT A/P: bladder wall thickening (cystitis), b/l renal parenchymal high density may be underlying metabolic disorder - I/Os - Flomax 0.4mg PO BID - Finasteride 5mg PO daily - Urology consulted: Titi Kam - Jin placed 07/27 D/C'ed @ 10 AM on 08/13, patient has been urinating freely Dysuria resolved - UA - leuko esterase 2+, WBC 50, squamous 1+ - UC - yeast species > 309156 cfu/ml - Completed fluconazole 100 mg PO daily X 7 fdays - Completed Pyridium 100 mg TIDPC for 2 days for symptom relief Community acquired pneumonia resolved - CXR (08/06): no active disease - CT A/P: LLL consolidation vs atelectasis - Discontinue Ancef 2000mg IV q8h (07/25) Unresponsiveness resolved - patient is alert and oriented x 3 - EEG: nonspecific abnormalities, no seizures noted - CT head: no acute findings - CTA head and neck: no significant stenoses or abnormalities - PRL wnl (12.9) - Gabapentin 100 mg PO TID - Neurology consulted: Manda - no need for anticonvulsant at this time PPx, Diet, Disposition -DVT ppx: Heparin 5000 units BID -GI ppx: Pepcid 20 mg PO daily -Diet: diabetic consistent -Vit A&D Patient is medically stable for discharge to home, as per Dr. Curiel. Patient to continue all home medications as prescribed. Patient will also be given a script for an 8 week course of Keflex 1000mg three times daily, as recommended by Infectious Disease (Dr. Garcia) for discitis. Patient is instructed to take all medications as indicated. Please follow up with [facility] within 1-2 weeks of discharge for continued monitoring and blood work. Patient is instructed to follow up in the clinic every other week while on Keflex for continued monitoring. Patient is also instructed to follow up with Neurosurgery (Dr. Olivia) in the outpatient setting. Please also follow up with Dermatology at [facility] for nasal erosion/skin malignancy. Continue to monitor blood glucose levels at home and take all diabetic medications as indicated. Patient has chronic medical conditions which require strict control. Contact information has been provided below: [facility] [place] [address] Please return to the ED if symptoms worsen. - Date & Time of H&P Date of H&P: 09/11/18 Time of H&P: 14:40 Discharge Exam - Head Exam Head Exam: ATRAUMATIC, NORMAL INSPECTION, NORMOCEPHALIC - Eye Exam Eye Exam: EOMI, Normal appearance, PERRL - ENT Exam ENT Exam: Mucous Membranes Moist, Normal Exam Additional comments: erosion of L nare/malar region, present for > 1 year, clean dry bandage across mid face, no active bleeding or signs of infection - Neck Exam Neck exam: Full Rom, Normal Inspection - Respiratory Exam Respiratory Exam: Clear to PA & Lateral, NORMAL BREATHING PATTERN, UNREMARKABLE. absent: Accessory Muscle Use, Respiratory Distress - Cardiovascular Exam Cardiovascular Exam: REGULAR RHYTHM, +S1, +S2 - GI/Abdominal Exam GI & Abdominal Exam: Normal Bowel Sounds, Soft, Unremarkable. absent: Distended, Firm, Guarding, Rebound, Rigid - Extremities Exam Additional comments: b/l BKA - Neurological Exam Neurological exam: Alert, CN II-XII Intact, Oriented x3 - Psychiatric Exam Psychiatric exam: Normal Affect, Normal Mood - Skin Skin Exam: Dry, Intact, Normal Color, Warm Discharge Plan - Discharge Medications Prescriptions: RX: Aspirin [Ecotrin] 81 mg PO DAILY #30 tabec RX: Atorvastatin [Lipitor] 1 tab PO DAILY #30 tab RX: Cephalexin [Keflex] 1,000 mg PO TID #168 cap RX: Cholecalciferol (Vitamin D3) [Vitamin D3] 1 tab PO QWK #30 tablet RX: Enalapril Maleate [Vasotec] 20 mg PO DAILY #30 tab RX: Gabapentin [Neurontin] 1 tab PO DAILY #30 capsule RX: Glimepiride [Amaryl] 1 tab PO DAILY #30 tablet RX: GlipiZIDE [Glucotrol] 10 mg PO DAILY #30 tab RX: MetFORMIN [glucoPHAGE] 1,000 mg PO BID #60 tab - Follow Up Plan Disposition: HOME/ ROUTINE Instructions: Alogliptin, Aspirin, Atorvastatin, Cephalexin, Cholecalciferol, Enalapril, Gabapentin, Glimepiride, Cellulitis (DC) Additional Instructions: Patient is medically stable for discharge to home, as per Dr. Curiel. Patient to continue all home medications as prescribed. Patient will also be given a script for an 8 week course of Keflex 1000mg three times daily, as recommended by Infectious Disease (Dr. Garcia) for discitis. Patient is instructed to take all medications as indicated. Please follow up with [facility] within 1-2 weeks of discharge for continued monitoring and blood work. Patient is instructed to follow up in the clinic every other week while on Keflex for continued monitoring. Patient is also instructed to follow up with Neurosurgery (Dr. Olivia) in the outpatient setting. Please also follow up with Dermatology at [facility] for nasal erosion/skin malignancy. Continue to monitor blood glucose levels at home and take all diabetic medications as indicated. Patient has chronic medical conditions which require strict control. Contact information has been provided below: [facility] at [place] [phone] Please return to the ED if symptoms worsen. El paciente est mdicamente estable para el mery hospitalaria, segn el Dr. Curiel. Paciente para continuar todos los medicamentos caseros segn lo prescrito. El paciente tambin recibir un karla para un curso de 8 semanas de Keflex 1000 mg carroll veces al da, segn lo recomendado por la [facility] (Dr. Garcia) para la discitis. Se instruye al paciente para que tome los medicamentos danielle se indica. Realice un seguimiento en [facility] dentro de 1-2 semanas despus del mery hospitalaria para un control continuo y anlisis de neyda. Se instruye al paciente para que ladarius un seguimiento en la clnica cada dos semanas mientras est en Keflex para un monitoreo continuo. Nirmal se le indica al paciente que realice un seguimiento con Neurociruga (Dr. Olivia) en el contexto ambulatorio. Por favor, nirmal siga con Dermatologa en la clnica [facility] para la erosin nasal / malignidad de la piel. Contine monitoreando los niveles de glucosa en la neyda en el hogar y tome todos los medicamentos para la diabetes danielle se indica. El paciente tiene condiciones mdicas crnicas que requieren un control estricto. La informacin de contacto se telles proporcionado a continuacin: [facility] [place] [address] [place]: [phone] Por favor regrese a la harpreet de emergencias si los sntomas empeoran. Referrals: Clinic,Med Surg [Non-Staff] - Tonya [place] MD [Staff Provider] - <Mila Curiel - Last Filed: 09/11/18 19:31> Provider - Provider Date of Admission: 07/21/18 21:50 Attending physician: Mila Curiel MD Consults: 07/21/18 20:30 Stroke Team Consult Stat Comment: Consulting Provider: Neurohospitalist Consulting Physician: NEUROHOSP Neurohospitalist for Consult: Elvis Holman Neurohospitalist for Consult: Danny Jaime Reason for Consult: code stroke 07/21/18 22:31 Critical Care Consult Routine Comment: Consulting Provider: Guanakito Henderson Consulting Physician: Guanakito Henderson Reason for Consult: intubated, acute respiratory failure 07/22/18 12:14 Neurology Consult Routine Comment: Consulting Provider: Elvis Holman Consulting Physician: Elvis Holman Reason for Consult: code stroke 07/22/18 19:13 Infectious Disease Consult Routine Comment: Consulting Provider: Bari Garcia Consulting Physician: Bari Garcia Reason for Consult: GPC bacteremia 07/23/18 08:42 Wound Care [Nursing Referral for Wound Care] Routine Comment: Physician Instructions: Reason For Exam: L facial erosion 07/24/18 10:46 Urology Consult Routine Comment: Consulting Provider: Yoandy Kam Consulting Physician: Yoandy Kam Reason for Consult: urinary retention 07/31/18 13:12 Physician Consult Routine Comment: Consulting Provider: Brigitte Fragoso Consulting Physician: Brigitte Fragoso Reason for Consult: pt with MSSA bacteremia and lumbar MRI with L4/5 abscess Additional Comments: epidural fluid collection and R iliopsoas fluid collection 07/31/18 13:48 Cardiology Consult Routine Comment: Consulting Provider: Nilo Ge Consulting Physician: Nilo Ge Reason for Consult: Please see for KASH/bacteremia, facial and spinal abscesses 07/31/18 15:30 Physician Consult Routine Comment: Consulting Provider: Srikanth Olivia Consulting Physician: Srikanth Olivia Reason for Consult: pt w bacteremia, MRI shows epidural abscess L4/5 09/04/18 12:15 Physician Consult Routine Comment: Consulting Provider: Srikanth Olivia Consulting Physician: Srikanth Olivia Reason for Consult: persistent osteomyelitis @ l4-L5 along w/ phlegmonous changes Hospital Course - Lab Results Lab Results: Micro Results 08/17/18 07:30 Urine Urine Culture - Final Yeast Species 08/05/18 22:13 Naris MRSA Culture - Final MRSA NOT DETECTED 07/28/18 13:45 Blood-Venous Blood Culture - Final NO GROWTH AFTER 5 DAYS 07/28/18 13:45 Blood-Venous Gram Stain - Final TEST NOT PERFORMED 07/25/18 14:37 Naris MRSA Culture (Admit) - Final MRSA NOT DETECTED 07/23/18 11:41 Urine,Clean Catch Urine Culture - Final No Growth (<1,000 CFU/ML) 07/21/18 20:30 Blood Blood Culture - Final Staphylococcus Aureus 07/21/18 20:30 Blood Gram Stain - Final 07/21/18 21:00 Blood S.aureus & Coag-Neg Staph PNA FISH - Final 07/21/18 21:00 Blood Blood Culture - Final Staphylococcus Aureus 07/21/18 21:00 Blood Gram Stain - Final 07/22/18 11:41 Urine,Jin Urine Culture - Final No Growth (<1,000 CFU/ML) 07/21/18 06:00 Naris MRSA Culture (Admit) - Final MRSA NOT DETECTED Most Recent Lab Values WBC 8.7 K/uL (4.8-10.8) 09/11/18 06:20 RBC 2.72 Mil/uL (4.40-5.90) L 09/11/18 06:20 Hgb 8.2 g/dL (12.0-18.0) L 09/11/18 06:20 Hct 24.1 % (35.0-51.0) L 09/11/18 06:20 MCV 88.7 fL (80.0-94.0) 09/11/18 06:20 MCH 30.1 pg (27.0-31.0) 09/11/18 06:20 MCHC 33.9 g/dL (33.0-37.0) 09/11/18 06:20 RDW 14.9 % (11.5-14.5) H 09/11/18 06:20 Plt Count 329 K/uL (130-400) 09/11/18 06:20 MPV 8.9 fL (7.2-11.7) 09/11/18 06:20 Neut % (Auto) 65.0 % (50.0-75.0) 09/11/18 06:20 Lymph % (Auto) 20.3 % (20.0-40.0) 09/11/18 06:20 Haralson % (Auto) 7.9 % (0.0-10.0) 09/11/18 06:20 Eos % (Auto) 6.1 % (0.0-4.0) H 09/11/18 06:20 Baso % (Auto) 0.7 % (0.0-2.0) 09/11/18 06:20 Neut # (Auto) 5.7 K/uL (1.8-7.0) 09/11/18 06:20 Lymph # (Auto) 1.8 K/uL (1.0-4.3) 09/11/18 06:20 Haralson # (Auto) 0.7 K/uL (0.0-0.8) 09/11/18 06:20 Eos # (Auto) 0.5 K/uL (0.0-0.7) 09/11/18 06:20 Baso # (Auto) 0.1 K/uL (0.0-0.2) 09/11/18 06:20 Neutrophils % (Manual) 83 % (50-75) H 07/26/18 08:12 Band Neutrophils % 2 % (0-2) 07/26/18 08:12 Lymphocytes % (Manual) 8 % (20-40) L 07/26/18 08:12 Monocytes % (Manual) 1 % (0-10) 07/26/18 08:12 Eosinophils % (Manual) 6 % (0-4) H 07/26/18 08:12 Platelet Estimate Slightly increased (NORMAL) H 07/26/18 08:12 Polychromasia Slight 07/26/18 08:12 Hypochromasia (manual) Slight 07/26/18 08:12 Poikilocytosis (manual Slight 07/23/18 06:28 Anisocytosis (manual) Slight 07/23/18 06:28 Tear Drop Cells Slight 07/23/18 06:28 ESR 145 mm/hr (0-15) H 09/05/18 06:34 PT 15.6 SECONDS (9.7-12.2) H 07/21/18 20:28 INR 1.4 07/21/18 20:28 APTT 34 SECONDS (21-34) 07/21/18 20:28 Puncture Site L rad 07/22/18 05:46 pCO2 28 mm/Hg (35-45) L 07/22/18 05:46 pO2 183 mm/Hg (80-100) H 07/22/18 05:46 HCO3 20.6 mmol/L (21-28) L 07/22/18 05:46 ABG pH 7.42 (7.35-7.45) 07/22/18 05:46 ABG Total CO2 19.1 mmol/L (22-28) L 07/22/18 05:46 ABG O2 Saturation 95.9 % (95-98) 07/22/18 05:46 ABG Base Excess -5.5 mmol/L (-2.0-3.0) L 07/22/18 05:46 ABG Hemoglobin 8.0 g/dL (11.7-17.4) L 07/22/18 05:46 ABG Carboxyhemoglobin 0 % (0.5-1.5) L 07/22/18 05:46 POC ABG HHb (Measured) 4.1 % (0.0-5.0) 07/22/18 05:46 ABG Methemoglobin 0.0 % (0.0-3.0) 07/22/18 05:46 Flaco Test Pos 07/22/18 05:46 ABG Potassium 2.9 mmol/L (3.6-5.2) L 07/21/18 20:30 A-a O2 Difference 67.0 mm/Hg 07/22/18 05:46 Respiratory Index 0.4 07/22/18 05:46 Hgb O2 Saturation 95.9 % (95.0-98.0) 07/22/18 05:46 Sodium 128.0 mmol/l (132-148) L 07/21/18 20:30 Chloride 100.0 mmol/L (98-107) 07/21/18 20:30 Glucose 90 mg/dl (75-110) 07/21/18 20:30 Lactate 0.8 mmol/L (0.7-2.1) 07/21/18 20:30 Vent Mode Prvc 07/22/18 05:46 Mechanical Rate 16 07/22/18 05:46 FiO2 40.0 % 07/22/18 05:46 Tidal Volume 500 07/22/18 05:46 PEEP 5 07/22/18 05:46 Sodium 135 mmol/L (132-148) 09/11/18 06:20 Potassium 4.8 mmol/L (3.6-5.2) 09/11/18 06:20 Chloride 103 mmol/L (98-107) 09/11/18 06:20 Carbon Dioxide 25 mmol/L (22-30) 09/11/18 06:20 Anion Gap 11 (10-20) 09/11/18 06:20 BUN 31 mg/dL (9-20) H 09/11/18 06:20 Creatinine 0.8 mg/dL (0.8-1.5) 09/11/18 06:20 Est GFR ( Amer) > 60 09/11/18 06:20 Est GFR (Non-Af Amer) > 60 09/11/18 06:20 POC Glucose (mg/dL) 194 mg/dL (65-110) H 09/11/18 16:35 Random Glucose 172 mg/dL (75-110) H 09/11/18 06:20 Hemoglobin A1c 8.9 % (4.2-6.5) H 07/21/18 20:31 Serum Osmolality 297 mosm/kg (272-300) 07/30/18 17:00 Calcium 8.7 mg/dl (8.6-10.4) 09/11/18 06:20 Phosphorus 5.1 mg/dL (2.5-4.5) H 09/05/18 06:34 Magnesium 2.0 mg/dL (1.6-2.3) 09/05/18 06:34 Iron 19 ug/dL (49-181) L 08/02/18 07:17 TIBC 239 ug/dL (250-450) L 08/01/18 19:41 % Saturation 8 (20-55) L 08/02/18 07:17 Total Bilirubin 0.1 mg/dL (0.2-1.3) L 09/11/18 06:20 AST 11 U/L (17-59) L D 09/11/18 06:20 ALT 8 U/L (21-72) L 09/11/18 06:20 Alkaline Phosphatase 156 U/L (38-126) H 09/11/18 06:20 Total Creatine Kinase < 20 U/L (55-170) L 08/07/18 07:11 Troponin I < 0.0120 ng/mL (0.00-0.120) 07/26/18 09:50 C-React Prot High Sens > 15.00 mg/L (1.00-3.00) H 09/05/18 06:34 NT-Pro-B Natriuret Pep 216 pg/mL (0-900) 07/21/18 20:28 Total Protein 7.2 g/dL (6.3-8.3) 09/11/18 06:20 Albumin 3.2 g/dL (3.5-5.0) L 09/11/18 06:20 Globulin 4.0 gm/dL (2.2-3.9) H 09/11/18 06:20 Albumin/Globulin Ratio 0.8 (1.0-2.1) L 09/11/18 06:20 Triglycerides 263 mg/dL (0-149) H 07/21/18 20:28 Cholesterol 121 mg/dL (0-199) 07/21/18 20:28 LDL Cholesterol Direct 42 mg/dL (0-129) 07/21/18 20:28 HDL Cholesterol 15 mg/dL (30-70) L 07/21/18 20:28 Lipase 32 U/L (23-300) 07/21/18 20:28 Procalcitonin < 0.05 NG/ML (0.19-0.49) L 09/05/18 06:34 Prolactin 12.9 ng/mL (3.7-17.9) 07/22/18 05:56 Arterial Blood Potassium 2.9 mmol/L (3.6-5.2) L 07/21/18 20:30 Urine Color Yellow (YELLOW) 08/17/18 07:30 Urine Clarity Hazy (Clear) 08/17/18 07:30 Urine pH 6.0 (5.0-8.0) 08/17/18 07:30 Ur Specific [place] 1.015 (1.003-1.030) 08/17/18 07:30 Urine Protein 2+ mg/dL (NEGATIVE) H 08/17/18 07:30 Urine Glucose (UA) Normal mg/dL (Normal) 08/17/18 07:30 Urine Ketones Negative mg/dL (NEGATIVE) 08/17/18 07:30 Urine Blood Negative (NEGATIVE) 08/17/18 07:30 Urine Nitrate Negative (NEGATIVE) 08/17/18 07:30 Urine Bilirubin Negative (NEGATIVE) 08/17/18 07:30 Urine Urobilinogen Normal mg/dL (0.2-1.0) 08/17/18 07:30 Ur Leukocyte Esterase 2+ Jana/uL (Negative) H 08/17/18 07:30 Urine WBC (Auto) 50 /hpf (0-5) H 08/17/18 07:30 Urine RBC (Auto) 9 /hpf (0-3) H 08/17/18 07:30 Ur Squamous Epith Cells 1 /hpf (0-5) 08/17/18 07:30 Urine Bacteria Rare (<OCC) 08/17/18 07:30 Urine Osmolality 454 mosm/kg (300-1000) 07/30/18 18:03 Ur Random Sodium 83 mmol/L 07/24/18 09:07 Ur Random Potassium 20.9 mmol/L 07/24/18 11:00 Urine Collection Time 24 HRS 07/31/18 14:53 Urine Total Volume 2050 mL 07/31/18 14:53 Ur Sodium 24 Hour 203.0 mmol/L (40-220) 07/31/18 14:53 Vancomycin Trough 14.8 ug/mL (5.0-10.0) H 07/24/18 06:15 Urine Opiates Screen Negative (NEGATIVE) 07/21/18 22:03 Urine Methadone Screen Negative (NEGATIVE) 07/21/18 22:03 Ur Barbiturates Screen Negative (NEGATIVE) 07/21/18 22:03 Ur Phencyclidine Scrn Negative (NEGATIVE) 07/21/18 22:03 Ur Amphetamines Screen Negative (NEGATIVE) 07/21/18 22:03 U Benzodiazepines Scrn Negative (NEGATIVE) 07/21/18 22:03 U Oth Cocaine Metabols Negative (NEGATIVE) 07/21/18 22:03 U Cannabinoids Screen Negative (NEGATIVE) 07/21/18 22:03 IgG 1815 mg/dL (694-1618) H 09/05/18 19:30 IgA 463 mg/dL (81-463) 09/05/18 19:30 IgM 49 mg/dL (48-271) 09/05/18 19:30 Serum Immunofixation Detected (Not Detected) H 09/05/18 19:30 Blood Type O POSITIVE 07/21/18 21:25 Antibody Screen Negative 07/21/18 21:25 Attending/Attestation - Attestation I have personally seen and examined this patient.: Yes I have fully participated in the care of the patient.: Yes I have reviewed all pertinent clinical information, including history, physical exam and plan: Yes Notes (Text): Seen and examined by me We will discharge on 8 weeks of keflex as per DR Garcia.Patient was asked to follow clinic do check his blood Patient was explained about his antibiotics,managing his diabetes ,medical clinic follow up and [facility] follow his skin cancer. Discussed about diabetic diet on multiple occasions
[2018-09-11] MEDS ORDERED: Influenza Vaccine 60 MCG/0.5 ML SYR (3 yr & up) IM ONE (14:00)
[2018-09-11 15:51] VITALS: BP 158/81; PULSE 68; TEMP 98; O2SAT 97
== END 2018-09-11 19:16 | disposition home or self-care (01) | DRG 871 ==
LOC: C.ER 20:05 → SUPCPDRO 20:05 → C.9I 21:50 → C.3T 07-25 10:37
PROVIDERS: ADMIT Internal Medicine; ATTEND Internal Medicine
PROC: 5A1935Z Respiratory Ventilation, Less than 24 Consecutive Hours (ICD-10-PCS; principal; 2018-07-21)
PROC: 02HV33Z Insertion of Infusion Device into Superior Vena Cava, Percutaneous Approach (ICD-10-PCS; 2018-07-26)
PROC: B518ZZA Fluoroscopy of Superior Vena Cava, Guidance (ICD-10-PCS; 2018-07-26)
DX: A41.01 Sepsis due to Methicillin susceptible Staphylococcus aureus (principal); J96.90 Respiratory failure, unspecified, unspecified whether with hypoxia or hypercapnia; G06.1 Intraspinal abscess and granuloma; G92 Toxic encephalopathy; J18.9 Pneumonia, unspecified organism; K68.12 Psoas muscle abscess; M46.36 Infection of intervertebral disc (pyogenic), lumbar region; L03.211 Cellulitis of face; N17.9 Acute kidney failure, unspecified; N39.0 Urinary tract infection, site not specified; M46.26 Osteomyelitis of vertebra, lumbar region; R65.20 Severe sepsis without septic shock; D63.8 Anemia in other chronic diseases classified elsewhere; E11.65 Type 2 diabetes mellitus with hyperglycemia; E11.69 Type 2 diabetes mellitus with other specified complication; M94.0 Chondrocostal junction syndrome [Tietze]; I10 Essential (primary) hypertension; M46.46 Discitis, unspecified, lumbar region; M94.8X8 Other specified disorders of cartilage, other site; M48.061 Spinal stenosis, lumbar region without neurogenic claudication; N30.90 Cystitis, unspecified without hematuria; R04.0 Epistaxis; G89.29 Other chronic pain; C44.91 Basal cell carcinoma of skin, unspecified; R33.8 Other retention of urine; K59.00 Constipation, unspecified; Z79.4 Long term (current) use of insulin; Z89.511 Acquired absence of right leg below knee; Z89.512 Acquired absence of left leg below knee; Z74.01 Bed confinement status; Z87.891 Personal history of nicotine dependence; Z91.11 Patient's noncompliance with dietary regimen; Z79.2 Long term (current) use of antibiotics; Z79.82 Long term (current) use of aspirin; Z79.899 Other long term (current) drug therapy

== ENCOUNTER 2018-12-24 13:34 | Outpatient (CLI) | payer OTHER | END 2018-12-24 13:35 | disposition home or self-care (01) | LOC: C.CTH 13:34 | DX: Z01.818 Encounter for other preprocedural examination (principal) ==